=== PATIENT | female | born 1960 | race Caucasian/White ===

== ENCOUNTER 2018-10-10 09:52 | Inpatient (IN) | payer MEDICARE, SELFPAY ==
[2018-10-10] VITALS (31 sets, daily range): BP systolic 99–161; BP diastolic 62–108; PULSE 78–156; RESP 14–26; TEMP 36.9; O2SAT 94–99; BMI 35.9; BMI 33.7; BMI 33.8
[2018-10-10] MEDS: Heparin Injection (Vial) 5,000 UNIT/ML VIAL 4000 UNIT IV (10:02)
[2018-10-10] MEDS: TICAGRELOR 90 MG TABLET 180 MG PO (10:02)
--- NOTE | 2018-10-10 10:02 | EKG12_ITS ---
Test Reason : Blood Pressure : / mmHG Vent. Rate : 092 BPM Atrial Rate : 092 BPM P-R Int : 146 ms QRS Dur : 084 ms QT Int : 334 ms P-R-T Axes : 063 042 086 degrees QTc Int : 413 ms Normal sinus rhythm Nonspecific ST and T wave abnormality Abnormal ECG When compared with ECG of 10-OCT-2018 11:33, MANUAL COMPARISON REQUIRED, DATA IS UNCONFIRMED Confirmed by MALLORIE MYERS, KATINA ([id number]), purchase request editor OMID FLORENCE ([id number]) on 10/14/2018 9:08:34 AM Referred By: Opal Mason Confirmed By:KATINA NOBLES MD
--- NOTE | 2018-10-10 10:02 | RAD_ITS ---
STUDY: X-RAY CHEST REASON FOR EXAM: Female, 58 years old. Chest pain. TECHNIQUE: Single AP portable view of the chest. COMPARISON: Comparison is made with prior study dated November 10, 2016. FINDINGS: EKG electrodes are seen. Hyperinflation. There is no demonstrated pleural abnormality. Normal size heart. Normal mediastinum and oj. Normal visualized pulmonary arteries. Normal visualized aortic arch and descending thoracic aorta. There are degenerative changes of the visualized thoracic spine. Normal visualized ribs, clavicles, and shoulders. There is no demonstrated abnormality of the visualized soft tissue structures of the upper abdomen. RAD/Chest 1 View (Portable) IMPRESSION: Hyperinflation. Electronically Signed: Jay Guzmán, at 14:28 EDT , Service support ,
[2018-10-10] MEDS: 0.9% Normal Saline 1,000 ML 150 ML IV (10:05)
--- NOTE | 2018-10-10 10:08 | ED.DCSUM_ITS ---
- ER Visit Summary Date of Service: 10/10/18 Chief Complaint: Chest pain History of Present Illness: The patient is a 58 F who tells me that over the weekend she had 2 episodes of chest pain. She had another episode today beginning at 030 0 hours. She describes it as left chest aching radiating into her axilla and the back of her shoulder. She notes nausea and had one episode of vomiting at her doctor's office. She also notes shortness of breath. Patient is a non-smoker. Reportedly got an nitroglycerin with improvement in symptoms. EKG at the doctor's office is concerning for anterior elevation Physical Examination: Afebrile noted tachycardia at 107 Gen: Well-nourished well-developed Head: Normocephalic atraumatic Eyes: Perrl EOMI ENT: TMs clear no rhinorrhea moist mucous membranes Neck: Supple no lymphadenopathy no JVD nontender CVS: Regular rate rhythm no murmurs normal S1-S2 Respiratory: No distress clear to auscultation bilaterally chest nontender Abdomen: Soft nontender nondistended normal bowel sounds no masses Back: Nontender Extremity: Nontender no edema Skin: Normal color no rash Neuro: alert orientated ?3 CN II-XII intact normal strength sensation reflexes gait cerebellar Psych: Anxious Test Results: EKG demonstrates a sinus tachycardia with anterior elevation Emergency Department Course and Treatment: A STEMI team was called and the patient received heparin, Brilinta, and metoprolol. Dr. 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 She will be transferred to [facility] Impression: 1. Acute anterior myocardial infarction This note was generated with [employer] dictation software. It may contain incorrect words, spelling, and punctuation that were not noted in review of the chart prior to signing ED Disposition - Plan for ED Patient: Referrals: Anup Quinones MD [Primary Care Provider] -
--- NOTE | 2018-10-10 10:09 | ED.RN ---
Chinedu notified of patient condition. on his way in.
[2018-10-10 10:18] LABS: Absolute Lymphocyte Count 1.59 X10^3/ul (0.83-4.51); Absolute Neutrophil Count 6.9 X10^3/uL (2.0-7.7); Basophil# 0.02 X10^3/uL; Basophil% 0.2 % (0-1); Eosinophil# 0.07 X10^3/uL; Eosinophils% 0.8 % (0-5); Hematocrit 45.5 % (37-47); Hemoglobin 15.3 g/dl (12.0-15.0); Lymphocyte # 1.59 X10^3/ul (4.0); Lymphocyte % 17.4 % (19-41); Mean Corp Hgb Conc 33.6 g/gl (32-36); Mean Corpuscular Hgb 28.1 pg (27.0-32.0); Mean Corpuscular Volume 83.5 fL (81-99); Mean Platelet Vol. 10.7 fl (6.2-12.0); Monocyte# 0.52 X10^3/uL; Monocyte% 5.7 % (0-10); Neutrophil # 6.92 X10^3/uL (2.7-7.7); Neutrophil % 75.8 % (47-70); POSITIVE COUNT NO; POSITIVE DIFFERENTIAL NO; POSITIVE MORPHOLOGY NO; Platelet Count 264 K/mm3 (150-450); RBC Distribution Width CV 13.2 % (11.6-14.6); RBC Distribution Width SD 39.7 fl (35.1-43.9); Red Blood Count 5.45 M/mm3 (4.2-5.4); White Blood Count 9.1 K/mm3 (4.4-11.0)
[2018-10-10 10:24] LABS: Prothrombin Time (Protime)PT. 13.4 SECONDS (11.7-14.9)
[2018-10-10 10:25] LABS: Partial Thromboplast Time 29.3 Seconds (24.1-36.2)
[2018-10-10 10:44] LABS: Anion Gap 14 (5-15); BUN 21 mg/dL (7-18); BUN/Creat Ratio 18.8 RATIO (10-20); Calcium,Total 9.3 mg/dL (8.5-10.1); Chloride 96 mmol/L (98-107); Creatinine, Serum 1.12 mg/dL (0.55-1.02); EST Glomerular Filtration Rate 53 mL/min (>60); Est Glom Filt Rate - Afr Amer 64 mL/min (>60); Estimated Creatinine Clearance 68.99 ml/min; Glucose 516 mg/dL (74-106); Potassium 4.7 mmol/L (3.5-5.1); Sodium Level 131 mmol/L (136-145)
--- NOTE | 2018-10-10 11:11 | CL.I_ITS ---
Patient Name: ANGEL ALMODOVAR Study Date: 10/10/2018 Performing: Js Conti MD Ht: 59.05 inches 150 cm : 1960 Wt: 178.57 lbs 81 kg Age: 58 Gender: female BSA: 1.76 PROCEDURE(S) PERFORMED CM15-CPI/COR/LV WO95-HWD, LIZETTE AND/OR PTCA, ARTERY OR GRAFT, SINGLE VESSEL CLINICAL PROFILE AND CO-MORBIDITIES Heart Failure: None Angina Classification Anginal Classification w/in 2 Weeks: CCS IV CAD Presentations: STEMI. Symptom onset Date/Time: 10/10/2018 03:00:00 Time Estimated CONCLUSIONS 99% Mid LAD with MEHREEN I flow 70% distal LCX 60% Mid RCA LVEF 35% RECOMMENDATIONS ASA Indefinitley Brilinta for at least 12 months DESCRIPTION OF PROCEDURE The patient arrived to the procedure lab. The risks and benefits of the procedure as well as a full d escription of our services here and lack of surgical backup were fully explained to the patient and/o r their significant other prior to the catheterization. The Timeout was completed, verifying the kolby ect patient and procedure. The patient's procedural site was prepped and draped in the usual fashion. Local anesthetic was given subcutaneously to right groin region with Lidocaine 2%. Using a modified Seldinger technique, arterial access was obtained via the right radial artery, a 6Fr sheath was inser lasha.. Left Coronary Artery selective angiography was performed in multiple views using a 6 Fr. XB 2. 5 VBT. Right Coronary Artery selective angiography was then performed in multiple views using a 5 Fr. JR 4 catheter. Left Ventriculography was performed in OCAMPO projection using a 5 Fr. Pigtail catheterT he images were reviewed and options discussed. A decision was then made to proceed with an Intervention, IVUS or other adjunct procedure. Runthrough Guide wire was advanced to the LAD. Emerge 2.0 x 12 Balloon catheter was inserted. Bal loon catheter was advanced across lesion in the LAD, mid. PTCA balloon inflated at 6 atms for 10 secs . Angiogram performed post balloon dilatation. PTCA balloon inflated at 8 atms for 14 secs. Angiogram performed post balloon dilatation. Synergy 2.5 x 38 Drug Eluting stent was inserted. Drug Eluting st ent was advanced across the lesion in the LAD, mid. Angiogram performed pre stent deployment. Angiogr am performed post stent deployment. Synergy 2.5 x 12 Drug Eluting stent was inserted. Drug Eluting st ent was advanced across the lesion in the LAD, mid. Angiogram performed pre stent deployment. NC Bambi ge 2.5 x 30 Balloon catheter was inserted. Balloon catheter was advanced across lesion in the LAD, mi d. The arterial sheath was pulled and a TR Band was applied for hemostasis CORONARY ANGIOGRAPHY DOMINANCE: Right Dominant LEFT HEART ASSESSMENT Left Ventricular Ejection Fraction: by LV Gram 35 % LVEDP: 5 mmHg LEFT MAIN: Angiographically normal LEFT ANTERIOR DECENDING ARTERY: 99% Mid LAD with TMI I flow CIRCUMFLEX ARTERY: Distal 70% RIGHT CORONARY ARTERY: 50% Prox, 60% distal Mid INTERVENTION INFORMATION LESION SITE: LAD (Mid) Lesion Complexity: High/C, thrombus present: Yes, culprit lesion: Yes Pre Stenosis: 99 % Pre intervention MEHREEN flow: 3 PROCEDURE: Drug Eluting Stent with pre and post dilatation Post Stenosis: 0 % Post intervention MEHREEN flow: 3 Lesion Devices: Luis Miguel Sci EMERGE MR 2.00x12 BALLOON Luis Miguel Sci Synergy MR LIZETTE 2.50x38 Luis Miguel Sci Synergy MR LIZETTE 2.50x12 Luis Miguel Sci NC EMERGE MR 2.50x30 BALLOON Terumo .014 Runthrough Extra Floppy 180cm straight COMPLICATIONS No Complications PROCEDURE MEDICATIONS Versed 1 mg IV Versed 1 mg IV Oxygen: 2 L/min via nasal cannula Heparin 4000 unit(s) IV 10/10/2018 10:26:55 Nitro 200 mcg IC 10/10/2018 10:31:16 Nitro 200 mcg IC 10/10/2018 10:31:16 Verapamil 2.5mg, Ntg 100mcgs, given IA 10/10/2018 10:24:37 IV Bolus: .9 NaCl 250 ml total 10/10/2018 11:03:33 SUMMARY OF HEMODYNAMIC DATA Time AIR REST ECG 10:15:31 AO 118/68 (92) SA 10:22:53 LV 118/-1, 6 10:55:03 LV 124/-2, 3 10:55:10 LVp 106/3, 8 10:57:07 AOp 101/60 (79) 10:57:12 Signed By Js Conti MD On 10/10/2018 11:10:25 AM Js Conti MD
--- NOTE | 2018-10-10 11:16 | EKG12_ITS ---
Test Reason : CP Blood Pressure : / mmHG Vent. Rate : 094 BPM Atrial Rate : 094 BPM P-R Int : 136 ms QRS Dur : 082 ms QT Int : 334 ms P-R-T Axes : 069 053 078 degrees QTc Int : 417 ms Normal sinus rhythm Nonspecific T wave abnormality Abnormal ECG When compared with ECG of 10-OCT-2018 14:03, MANUAL COMPARISON REQUIRED, DATA IS UNCONFIRMED Confirmed by MALLORIE MYERS, KATINA ([id number]), film editor OMID FLORENCE ([id number]) on 10/14/2018 9:08:21 AM Referred By: Opal Mason Confirmed By:KATINA NOBLES MD
--- NOTE | 2018-10-10 11:25 | CON.PCM_ITS ---
Reason for Consult Date of Consultation: 10/10/18 History of Present Illness: The patient is a 58 year old F with past medical history significant for hypertension. According to her, she has been having intermittent chest discomfort for the last couple of days. However it became really worse at 3:00 this morning and has since been constant. She presented to the emergency room where and she was diagnosed with acute anterior ST elevation myocardial infarction. Next Patient describes her pain as pressure across her anterior chest. Positive associated shortness of breath. Positive nausea but no vomiting. [] Past Medical History Allergies/Adverse Reactions: Allergies calcium carbonate [From Florical] Allergy (Verified 10/10/18 09:53) Swelling codeine Allergy (Verified 10/10/18 09:53) Swelling egg Allergy (Verified 10/10/18 09:53) Unknown fish derived Allergy (Verified 10/10/18 09:53) Unknown nitrofurantoin macrocrystalline [From Macrodantin] Allergy (Verified 10/10/18 09:53) Swelling oxycodone HCl [From Percocet] Allergy (Verified 10/10/18 09:53) Hives propoxyphene napsylate [From Darvocet-N 100] Allergy (Verified 10/10/18 09:53) Hives sodium fluoride [From Florical] Allergy (Verified 10/10/18 09:53) Swelling Sulfa (Sulfonamide Antibiotics) Allergy (Verified 10/10/18 09:53) Unknown Home Medications: Ambulatory Orders Medication Instructions Recorded Aspirin [Aspirin, Baby] 81 mg PO DAILY 06/02/13 Albuterol Inhaler [Ventolin Hfa 2 puff INHALATION Q6H PRN PRN 11/10/16 (SP)] Citalopram Hydrobromide [Celexa] 20 mg PO DAILY 11/10/16 Fluticasone/Salmeterol [Advair 1 puff INHALATION BID 11/10/16 250/50 Mcg Diskus] Insulin NPH Human Isophane 22 unit SQ BID 11/10/16 [Humulin N] Insulin Regular, Human [Humulin R] 14 unit SC TID 11/10/16 Polyethylene Glycol 3350 [Miralax] 17 gm PO DAILY 11/10/16 Rosuvastatin Calcium [Crestor] 10 mg PO QHS 11/10/16 Trazodone HCl 200 mg PO QHS 11/10/16 Past Medical History (Chronic Problems): Chronic Problems Myalgia and myositis (Chronic) HTN (hypertension) (Chronic) HLD (hyperlipidemia) (Chronic) Family history of ischemic heart disease (Chronic) Diabetes mellitus type II, uncontrolled (Chronic) Depressive disorder (Chronic) Coronary atherosclerosis of [place] coronary vessel (Chronic) Chest pain (Chronic) Asthma (Chronic) Smoking Status: Never smoker Review of Systems - Review of Systems General: Denies: Fever, Chills Cardiovascular: Reports: Chest Discomfort at Rest, Chest Pressure, Chest Tightness, Chest Heaviness, Shortness of Breath at Rest. Denies: Orthopnea, PND, Peripheral Edema Gastrointestinal: Reports: Nausea. Denies: Abdominal Discomfort, Jaundice, Emesis, Hematemesis, Melena Neurological: Denies: History of TIA, History of CVA Hematologic/ Lymphatic: Denies: Easy Brusing, Easy Bleeding Subjectve: Appeared anxious and in acute distress. Objective: Vital Signs Temp Pulse Resp BP Pulse Ox 98.5 F 156 H 17 161/99 H 95 10/10/18 09:53 10/10/18 09:53 10/10/18 09:59 10/10/18 09:59 10/10/18 09:57 Oxygen Delivery Method Room Air Weight: 80.8 kg Body Mass Index (BMI) 35.9 Finger Stick Blood Glucose 115 General: Awake, Alert, Oriented x 3, In Acute Distress HEENT: Atraumatic, Normocephalic Oral: Moist Mucosa Neck: Supple Lungs: Clear to auscultation Cardiovascular: Regular Rhythm, Normal S1, Normal S2, Positive S3 Abdomen: Bowel Sounds Present, Soft Extremities: No edema Neurological: No Focal Motor or Sensory Deficit Psych/Mental Status: Appropriate 10/10/18 10:02: WBC 9.1, RBC 5.45 H, Hgb 15.3 H, Hct 45.5, MCV 83.5, MCH 28.1, MCHC 33.6, RDW 13.2, RDW Differential 39.7, Plt Count 264, MPV 10.7, Immature Gran % (Auto) 0.100, Neut % (Auto) 75.8 H, Lymph % (Auto) 17.4 L, [place] % (Auto) 5.7, Eos % (Auto) 0.8, Baso % (Auto) 0.2, Absolute Neuts (auto) 6.9, Total Counted Not Reportable 10/10/18 10:02: PT 13.4, INR 1.0, APTT 29.3 10/10/18 10:02: Sodium 131 L, Potassium 4.7, Chloride 96 L, Carbon Dioxide 21.0, Anion Gap 14, BUN 21 H, Creatinine 1.12 H, Est GFR (MDRD) Af Amer 64, Est GFR (MDRD) Non-Af 53 L, BUN/Creatinine Ratio 18.8, Glucose 516 H*, Calcium 9.3, Troponin I 6.110 H* Rhythm: Sinus tachycardia EKG: EKG showed ST elevations consistent with acute anterior ST elevation myocardial infarction. Sinus tachycardia ECHO: Stress Test: Cardiac Cath: PCI: CT Surgery: Holter monitor: EPS: PPM: CXR: Chest CT Scan: Assessment/Plan 1. Acute anterior myocardial infarction. Emergent coronary angiography and possible revascularization was recommended. After obtaining informed consent, procedure was undertaken. Coronary angiography revealed subtotal occlusion in the mid left anterior descending artery with MEHREEN I flow. Successful percutaneous revascularization was performed with 2 drug-eluting stents. Excellent results were noted with mu-ism of MEHREEN-3 flow. 2. Continue aspirin lifelong. Brilinta for at least one year. Start low-dose beta-blockers. Start PURNIMA inhibitors. Statins. 3. LV systolic dysfunction secondary to #1 above. LVEF of approximately 35% with anterior apical hypokinesis. Start on beta-blockers, PURNIMA inhibitors and Aldactone. 2D echocardiogram 4. Patient has residual lesions in RCA and left circumflex. Follow-up as outpatient for staged intervention versus continued medical management 5. Diabetes mellitus. 6. Dyslipidemia
[2018-10-10] MEDS: 0.9% Normal Saline 1,000 ML 75 ML IV (11:42)
[2018-10-10 12:15] LABS: ACT Activated Clotting Time 202 sec (74-137)
[2018-10-10 12:15] LABS: ACT Activated Clotting Time 235 sec (74-137)
--- NOTE | 2018-10-10 13:14 | CRPHASE1 ---
Patient Data/Charges Hebrew Teacher:: Js Conti Refer Phase II:: Yes Phase II Referral:: [facility] Risk Factors/Lifestyle Hx Diabetes Mellitus Type 2: Yes Hx Dyslipidemia: Yes Hx Obesity: Yes Height: 1.5 m Weight:: 80.796 kg BMI: 35.9 Issues Affecting Care:: None Knowledge of Condition:: Yes Medical/Surgical History CAD:: Yes Asthma:: Yes Diabetes Type II:: Yes Hypertension:: Yes Dyslipidemia:: Yes
[2018-10-10 13:15] LABS: Bedside Glucose 346 mg/dL (70-110)
--- NOTE | 2018-10-10 13:17 | CRPHASE1_ITS ---
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 Risk Factors/Lifestyle Hx Diabetes Mellitus Type 2: Yes Hx Dyslipidemia: Yes Hx Obesity: Yes Height: 1.5 m Weight:: 80.796 kg BMI: 35.9 Issues Affecting Care:: None Knowledge of Condition:: Yes Medical/Surgical History CAD:: Yes Asthma:: Yes Diabetes Type II:: Yes Hypertension:: Yes Dyslipidemia:: Yes
--- NOTE | 2018-10-10 13:18 | CRPH1.INSTRU ---
General Education CAD and cardiac anatomy and function:: Patient communicates acknowledgment Explanation of diagnoses and procedures:: Patient communicates acknowledgment Sign/Symptoms of VA:: Patient communicates acknowledgment Antiplatelet therapy: Patient communicates acknowledgment Proper use of NTG-SL: Not instructed Emergency procedures and activation of EMS: Patient communicates acknowledgment Compliance of all prescribed medications: Patient communicates acknowledgment Smoking Patient Nicotine/Smoking Risk Factors Are:: Non-smoker Nicotine/Smoking Response Code:: Patient communicates acknowledgment Dyslipidemia Dyslipidemia Response Code:: Patient communicates acknowledgment Overweight/Obesity Patient Overweight/Obesity Risk Factors Are:: Obesity - > or = 30 Recommendations Include:: Weight loss of 5-10%, Reduced calorie diet, Exercise 5-7 times/week Overweight/Obesity:: Patient communicates acknowledgment Hypertension Recommendations Include:: Maintain BP <130/85, BP <130/80 if diabetic, DASH dietary guidelines, Decrease/maintain normal body weight, Moderation of ETOH Hypertension:: Patient communicates acknowledgment Heart Disease Patient Heart Disease Risk Factors Are:: Family history of heart disease < 65 years old Heart Disease Response Code:: Patient communicates acknowledgment Diabetes Recommendations Include:: Maintain fasting blood sugars 70-110 md/dL, Maintain HgbA1c of 6% or less, Monitor blood sugar as prescribed, Diabetic dietary guidelines, Decrease/maintain body weight Diabetes:: Patient communicates acknowledgment Metabolic Syndrome Metabolic Syndrome Response Code:: Patient communicates acknowledgment Sedentary Sedentary Response Code:: Patient communicates acknowledgment Stress Stress Response Code:: Patient communicates acknowledgment
[2018-10-10] MEDS: Carvedilol 3.125 MG TABLET PO ×2 (14:35→21:12)
[2018-10-10 16:26] LABS: Bedside Glucose 276 mg/dL (70-110)
[2018-10-10] MEDS: Lisinopril 2.5 MG Tablet PO (16:55)
[2018-10-10] MEDS: Insulin NPH Human 100 UNITS/ML PEN 22 UNITS SC (17:42)
--- NOTE | 2018-10-10 19:14 | PCM.HP.STD ---
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 Comment: started about 6 months ago (6) Hyponatremia Status: Acute (7) Chronic renal failure, stage 3 (moderate) Status: Chronic (8) Asthma Status: Chronic (9) Coronary atherosclerosis of [place] coronary vessel Status: Chronic (10) Depressive disorder Status: Chronic (11) Diabetes mellitus type II, uncontrolled Status: Chronic (12) Family history of ischemic heart disease Status: Chronic (13) HLD (hyperlipidemia) Status: Chronic (14) HTN (hypertension) Status: Chronic (15) S/P PTCA (percutaneous transluminal coronary angioplasty) Status: Acute Comment: LIZETTE X 2 to the LAD on 10/10/18 (16) Abnormal mammogram Status: Acute Comment: has an appt for later this month for a biopsy History of Present Illness Date of Admission: 10/10/18 Chief Complaint: chest pain The patient is a 58 year old F with a past medical history of diabetes mellitus type 2, hyperlipidemia, asthma, depression, learning disabilities, morbid obesity and CAD who presented to the ED at [facility] on 10/10/2018 complaining of chest pain that started on 10/07/2018. The chest pain got much worse at 3 AM on 10/10/2018. The chest pain was reported as left chest pain and it radiated down the left arm and into the left shoulder. She had nausea and one episode of emesis at her doctor's office. The chest pain was associated with shortness of breath. EKG done at her physician's office showed ST segment elevation. Repeat EKG done in the emergency room showed sinus tachycardia with anterior ST segment elevation in the precordial leads. Code STEMI was called and the patient was taken to the [facility]. She received heparin, Brilinta and metoprolol in the emergency department. Cardiac catheterization showed a 99% occlusion of the mid LAD, 70% occlusion of the distal left circumflex and a 60% occlusion of the right RCA. Left ventriculogram showed a 35% ejection fraction. 2 drug-eluting stents were inserted into the LAD and the patient was transferred to the intensive care unit. All lab was personally reviewed. Hemoglobin is 15.3 and the platelets and white blood cell count were within normal limits. Sodium was low at 131 and the BUN was 21 with a creatinine of 1.12 with a estimated GFR of 53. Random glucose was 516 and the troponin at admission was 6.11. She recently found out that her MMG was abnormal and she has been scheduled for a bx later this month. There is a + FH of breast CA in her mother and sister. 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 a social worker health services and is on new medication for rheumatoid arthritis Memory loss of unknown cause (Chronic) started about 6 months ago Chronic renal failure, stage 3 (moderate) (Chronic) HTN (hypertension) (Chronic) HLD (hyperlipidemia) (Chronic) Family history of ischemic heart disease (Chronic) Diabetes mellitus type II, uncontrolled (Chronic) Depressive disorder (Chronic) Coronary atherosclerosis of [place] coronary vessel (Chronic) Asthma (Chronic) Allergies calcium carbonate [From Florical] Allergy (Verified 10/10/18 09:53) Swelling codeine Allergy (Verified 10/10/18 09:53) Swelling egg Allergy (Verified 10/10/18 09:53) Unknown fish derived Allergy (Verified 10/10/18 09:53) Unknown nitrofurantoin macrocrystalline [From Macrodantin] Allergy (Verified 10/10/18 09:53) Swelling oxycodone HCl [From Percocet] Allergy (Verified 10/10/18 09:53) Hives propoxyphene napsylate [From Darvocet-N 100] Allergy (Verified 10/10/18 09:53) Hives sodium fluoride [From Florical] Allergy (Verified 10/10/18 09:53) Swelling Sulfa (Sulfonamide Antibiotics) Allergy (Verified 10/10/18 09:53) Unknown Home Medications: Ambulatory Orders Medication Instructions Recorded Aspirin [Aspirin, Baby] 81 mg PO DAILY 06/02/13 Albuterol Inhaler [Ventolin Hfa 2 puff INHALATION Q6H PRN PRN 11/10/16 (SP)] Citalopram Hydrobromide [Celexa] 20 mg PO DAILY 11/10/16 Fluticasone/Salmeterol [Advair 1 puff INHALATION BID 11/10/16 250/50 Mcg Diskus] Insulin NPH Human Isophane 22 unit SQ BID 11/10/16 [Humulin N] Insulin Regular, Human [Humulin R] 14 unit SC TID 11/10/16 Polyethylene Glycol 3350 [Miralax] 17 gm PO DAILY 11/10/16 Rosuvastatin Calcium [Crestor] 10 mg PO QHS 11/10/16 Trazodone HCl 200 mg PO QHS 11/10/16 Surgical History: cholecystectomy, hysterectomy - CRIS/BSO for endometriosis and bleeding, - - ear surgery and eye surgery 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 Lives: Spouse/ Significant Other Smoking Status: Never smoker Tobacco Use: Non-smoker Alcohol: None Drugs: None - *Family History Maternal History Items: Cancer - Mother had breast cancer., Diabetes, Heart Disease Paternal History Items: Diabetes, Heart Disease Sibling History Items: Cancer - Breast cancer in her sister, Heart Disease Review of Systems Constitutional: Denies: Anorexia, Chills, Fever, Weakness, Weight Change Eyes: Denies: Blurred vision HEENT: Denies: Difficulty Hearing, Difficulty Swallowing, Eye Pain, Head Aches, Sinus Congestion, Sinus Drainage, Sore Throat Cardiovascular: Reports: Chest Pain. Denies: Edema, Heaviness, Light Headedness, Orthopnea, Palpitations, Paroxysmal Noc. Dyspnea, Syncope Respiratory: Reports: Shortness of Breath - with the chest pain and it has resolved since the cath and 2 stents to the LAD. Denies: Cough, Shortness of breath at rest, Sputum production Gastrointestinal: Reports: Nausea - with the chest pain only, Vomiting. Denies: Abdominal Pain, Diarrhea Genitourinary: Denies: Dysuria, Incontinence Gynecological: Reports: - - recent abnormal MMG. Denies: Vaginal discharge Musculoskeletal: Reports: Arm Pain - left arm in association with CP. Denies: Joint Pain, Joint Tenderness Skin: Denies: Jaundice, Rash, Wounds Neurological: Reports: - - having trouble with her memory for the past 6 months per her . Denies: Slurred speech, Focal weakness, Numbness, Tingling, Seizures Psychiatric: Reports: Anxiety, Depression. Denies: Homicidal Ideations, Suicidal Ideations Endocrine: Denies: Hx of Thyroiditis Hematologic/ Lymphatic: Denies: Easy Bruising, Easy Bleeding, Hx of blood clot VTE Information - Inpt Only VTE Present on Admission: No VTE Mechan Device Prophylaxis: SCD's, Knee High COURTNEY Hose VTE Pharm Prophylaxis ordered?: No Reason prophylaxis not ordered:: Medical Contraindication - she received heparin bolus prior to cath Patient Problems: Active and Suspected Problems STEMI (ST elevation myocardial infarction) (Acute) Hyponatremia (Acute) S/P PTCA (percutaneous transluminal coronary angioplasty) (Acute) LIZETTE X 2 to the LAD on 10/10/18 Abnormal mammogram (Acute) has an appt for later this month for a biopsy - Physical Exam General: Alert, Cooperative, Well developed, Well nourished, Confused - keeps looking at her to help her answer my questions HEENT: Atraumatic, PERRLA, EOMI, Normocephalic Oral: Moist Mucosa, No Gingival or Mucosal Lesions/ Ulcerations Neck: Supple, No JVD, Negative Carotid Bruits, No Nodes, Trachea Midline Lungs: Clear to auscultation, Normal air movement, No rhonchi, No wheeze, No rales Cardiovascular: Regular rate, Regular Rhythm, Normal S1, Normal S2, No murmurs, No rub noted, No Gallop Abdomen: Bowel Sounds Present, Soft, Non Tender, Non-Distended Extremities: No clubbing, No cyanosis, No edema, No Calf Tenderness, Peripheral Pulses Normal Skin: No rashes, No breakdown Musculoskeletal: No Muscle Wasting Neurological: Cranial nerves II-XII grossly intact, Neuro grossly intact Psych/Mental Status: Anxious Vital Signs Temp Pulse Resp BP Pulse Ox 98.4 F 98 26 H 133/108 H 98 10/10/18 11:30 10/10/18 18:00 10/10/18 18:00 10/10/18 18:00 10/10/18 18:00 Oxygen Delivery Method Room Air Weight: 178 lb 2 oz Body Mass Index (BMI) 33.7 Finger Stick Blood Glucose 115 Intake and Output for Last 24 Hours 10/08/18 10/09/18 10/10/18 22:59 23:59 23:59 Intake Total 2500 / 2500 Output Total 2049 / 2049 Balance 450 / 450 Laboratory Tests Past 24 Hrs 10/10/18 10/10/18 10/10/18 10:02 10:02 10:02 WBC 9.1 RBC 5.45 H Hgb 15.3 H Hct 45.5 MCV 83.5 MCH 28.1 MCHC 33.6 RDW 13.2 RDW Differential 39.7 Plt Count 264 MPV 10.7 Immature Gran % (Auto) 0.100 Neut % (Auto) 75.8 H Lymph % (Auto) 17.4 L [place] % (Auto) 5.7 Eos % (Auto) 0.8 Baso % (Auto) 0.2 Absolute Neuts (auto) 6.9 Absolute Lymphs (auto) 1.59 Total Counted Not Reportable PT 13.4 INR 1.0 APTT 29.3 Activated Clotting Time Sodium 131 L Potassium 4.7 Chloride 96 L Carbon Dioxide 21.0 Anion Gap 14 BUN 21 H Creatinine 1.12 H Estim Creat Clear Calc 68.99 Est GFR (MDRD) Af Amer 64 Est GFR (MDRD) Non-Af 53 L BUN/Creatinine Ratio 18.8 Glucose 516 H* Calcium 9.3 Troponin I 6.110 H* 10/10/18 10/10/18 10:23 10:51 WBC RBC Hgb Hct MCV MCH MCHC RDW RDW Differential Plt Count MPV Immature Gran % (Auto) Neut % (Auto) Lymph % (Auto) [place] % (Auto) Eos % (Auto) Baso % (Auto) Absolute Neuts (auto) Absolute Lymphs (auto) Total Counted PT INR APTT Activated Clotting Time 202 H 235 H Sodium Potassium Chloride Carbon Dioxide Anion Gap BUN Creatinine Estim Creat Clear Calc Est GFR (MDRD) Af Amer Est GFR (MDRD) Non-Af BUN/Creatinine Ratio Glucose Calcium Troponin I POC Glucose 10/10/18 10/10/18 16:23 13:11 POC Glucose 276 H 346 H Assessment/Plan All Active Problems STEMI (ST elevation myocardial infarction) (Acute) Hyponatremia (Acute) S/P PTCA (percutaneous transluminal coronary angioplasty) (Acute) Abnormal mammogram (Acute) Impressions 1. STEMI secondary to 99% occlusion of the mid LAD 2. Status post PTCA with 2 stents placed in the LAD 3. Coronary artery disease involving [place] coronary arteries including the LCx, LAD and RCA 4. Ischemic cardiomyopathy with a 35% ejection fraction on cath 5. Diabetes mellitus type 2 6. Hyperlipidemia 7. History of asthma 8. Reported rheumatoid arthritis-on no medications 9. Reported fibromyalgia 10. Recent abnormal mammogram-scheduled for breast biopsy later this month 11. Hyponatremia 12. Stage III chronic renal failure 13. increasing memory difficulty for 6 months Admitted to the intensive care unit post cath/drug-eluting stents Brilinta and aspirin-Will need to antiplatelet agents for at least one year Carvedilol 3.125 mg p.o. twice daily Pravastatin 40 mg nightly Spironolactone 12.5 mg daily Lisinopril 2.5 mg daily 1800-calorie diet with Accu-Cheks 4 times daily and resume her home insulin schedule Echocardiogram in the a.m. Lipid panel, liver panel, magnesium, phosphorus, BMP in the AM. TSH, PANCHO, B12 ammonia in the AM and a CT brain in the future Cardiac rehab consultation Will discuss with Dr. Conti whether she can proceed with the scheduled breast bx at the end of the month or if she should wait 6 weeks Code Visit Inpatient E&M: [id number] [facility] L3
--- NOTE | 2018-10-10 19:19 | HP.PCM_ITS ---
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 Comment: started about 6 months ago (6) Hyponatremia Status: Acute (7) Chronic renal failure, stage 3 (moderate) Status: Chronic (8) Asthma Status: Chronic (9) Coronary atherosclerosis of [place] coronary vessel Status: Chronic (10) Depressive disorder Status: Chronic (11) Diabetes mellitus type II, uncontrolled Status: Chronic (12) Family history of ischemic heart disease Status: Chronic (13) HLD (hyperlipidemia) Status: Chronic (14) HTN (hypertension) Status: Chronic (15) S/P PTCA (percutaneous transluminal coronary angioplasty) Status: Acute Comment: LIZETTE X 2 to the LAD on 10/10/18 (16) Abnormal mammogram Status: Acute Comment: has an appt for later this month for a biopsy History of Present Illness Date of Admission: 10/10/18 Chief Complaint: chest pain The patient is a 58 year old F with a past medical history of diabetes mellitus type 2, hyperlipidemia, asthma, depression, learning disabilities, morbid obesity and CAD who presented to the ED at [facility] on 10/10/2018 complaining of chest pain that started on 10/07/2018. The chest pain got much worse at 3 AM on 10/10/2018. The chest pain was reported as left chest pain and it radiated down the left arm and into the left shoulder. She had nausea and one episode of emesis at her doctor's office. The chest pain was associated with shortness of breath. EKG done at her physician's office showed ST segment elevation. Repeat EKG done in the emergency room showed sinus tachycardia with anterior ST segment elevation in the precordial leads. Code STEMI was called and the patient was taken to the [facility]. She received heparin, Brilinta and metoprolol in the emergency department. Cardiac catheterization showed a 99% occlusion of the mid LAD, 70% occlusion of the distal left circumflex and a 60% occlusion of the right RCA. Left ventriculogram showed a 35% ejection fraction. 2 drug-eluting stents were inserted into the LAD and the patient was transferred to the intensive care unit. All lab was personally reviewed. Hemoglobin is 15.3 and the platelets and white blood cell count were within normal limits. Sodium was low at 131 and the BUN was 21 with a creatinine of 1.12 with a estimated GFR of 53. Random glucose was 516 and the troponin at admission was 6.11. She recently found out that her MMG was abnormal and she has been scheduled for a bx later this month. There is a + FH of breast CA in her mother and sister. 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 operator and is on new medication for rheumatoid arthritis Memory loss of unknown cause (Chronic) started about 6 months ago Chronic renal failure, stage 3 (moderate) (Chronic) HTN (hypertension) (Chronic) HLD (hyperlipidemia) (Chronic) Family history of ischemic heart disease (Chronic) Diabetes mellitus type II, uncontrolled (Chronic) Depressive disorder (Chronic) Coronary atherosclerosis of [place] coronary vessel (Chronic) Asthma (Chronic) Allergies calcium carbonate [From Florical] Allergy (Verified 10/10/18 09:53) Swelling codeine Allergy (Verified 10/10/18 09:53) Swelling egg Allergy (Verified 10/10/18 09:53) Unknown fish derived Allergy (Verified 10/10/18 09:53) Unknown nitrofurantoin macrocrystalline [From Macrodantin] Allergy (Verified 10/10/18 09:53) Swelling oxycodone HCl [From Percocet] Allergy (Verified 10/10/18 09:53) Hives propoxyphene napsylate [From Darvocet-N 100] Allergy (Verified 10/10/18 09:53) Hives sodium fluoride [From Florical] Allergy (Verified 10/10/18 09:53) Swelling Sulfa (Sulfonamide Antibiotics) Allergy (Verified 10/10/18 09:53) Unknown Home Medications: Ambulatory Orders Medication Instructions Recorded Aspirin [Aspirin, Baby] 81 mg PO DAILY 06/02/13 Albuterol Inhaler [Ventolin Hfa 2 puff INHALATION Q6H PRN PRN 11/10/16 (SP)] Citalopram Hydrobromide [Celexa] 20 mg PO DAILY 11/10/16 Fluticasone/Salmeterol [Advair 1 puff INHALATION BID 11/10/16 250/50 Mcg Diskus] Insulin NPH Human Isophane 22 unit SQ BID 11/10/16 [Humulin N] Insulin Regular, Human [Humulin R] 14 unit SC TID 11/10/16 Polyethylene Glycol 3350 [Miralax] 17 gm PO DAILY 11/10/16 Rosuvastatin Calcium [Crestor] 10 mg PO QHS 11/10/16 Trazodone HCl 200 mg PO QHS 11/10/16 Surgical History: cholecystectomy, hysterectomy - CRIS/BSO for endometriosis and bleeding, - - ear surgery and eye surgery 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 Lives: Spouse/ Significant Other Smoking Status: Never smoker Tobacco Use: Non-smoker Alcohol: None Drugs: None - *Family History Maternal History Items: Cancer - Mother had breast cancer., Diabetes, Heart Disease Paternal History Items: Diabetes, Heart Disease Sibling History Items: Cancer - Breast cancer in her sister, Heart Disease Review of Systems Constitutional: Denies: Anorexia, Chills, Fever, Weakness, Weight Change Eyes: Denies: Blurred vision HEENT: Denies: Difficulty Hearing, Difficulty Swallowing, Eye Pain, Head Aches, Sinus Congestion, Sinus Drainage, Sore Throat Cardiovascular: Reports: Chest Pain. Denies: Edema, Heaviness, Light Headedness, Orthopnea, Palpitations, Paroxysmal Noc. Dyspnea, Syncope Respiratory: Reports: Shortness of Breath - with the chest pain and it has resolved since the cath and 2 stents to the LAD. Denies: Cough, Shortness of breath at rest, Sputum production Gastrointestinal: Reports: Nausea - with the chest pain only, Vomiting. Denies: Abdominal Pain, Diarrhea Genitourinary: Denies: Dysuria, Incontinence Gynecological: Reports: - - recent abnormal MMG. Denies: Vaginal discharge Musculoskeletal: Reports: Arm Pain - left arm in association with CP. Denies: Joint Pain, Joint Tenderness Skin: Denies: Jaundice, Rash, Wounds Neurological: Reports: - - having trouble with her memory for the past 6 months per her . Denies: Slurred speech, Focal weakness, Numbness, Tingling, Seizures Psychiatric: Reports: Anxiety, Depression. Denies: Homicidal Ideations, Suicidal Ideations Endocrine: Denies: Hx of Thyroiditis Hematologic/ Lymphatic: Denies: Easy Bruising, Easy Bleeding, Hx of blood clot VTE Information - Inpt Only VTE Present on Admission: No VTE Mechan Device Prophylaxis: SCD's, Knee High COURTNEY Hose VTE Pharm Prophylaxis ordered?: No Reason prophylaxis not ordered:: Medical Contraindication - she received heparin bolus prior to cath Patient Problems: Active and Suspected Problems STEMI (ST elevation myocardial infarction) (Acute) Hyponatremia (Acute) S/P PTCA (percutaneous transluminal coronary angioplasty) (Acute) LIZETTE X 2 to the LAD on 10/10/18 Abnormal mammogram (Acute) has an appt for later this month for a biopsy - Physical Exam General: Alert, Cooperative, Well developed, Well nourished, Confused - keeps looking at her to help her answer my questions HEENT: Atraumatic, PERRLA, EOMI, Normocephalic Oral: Moist Mucosa, No Gingival or Mucosal Lesions/ Ulcerations Neck: Supple, No JVD, Negative Carotid Bruits, No Nodes, Trachea Midline Lungs: Clear to auscultation, Normal air movement, No rhonchi, No wheeze, No rales Cardiovascular: Regular rate, Regular Rhythm, Normal S1, Normal S2, No murmurs, No rub noted, No Gallop Abdomen: Bowel Sounds Present, Soft, Non Tender, Non-Distended Extremities: No clubbing, No cyanosis, No edema, No Calf Tenderness, Peripheral Pulses Normal Skin: No rashes, No breakdown Musculoskeletal: No Muscle Wasting Neurological: Cranial nerves II-XII grossly intact, Neuro grossly intact Psych/Mental Status: Anxious Vital Signs Temp Pulse Resp BP Pulse Ox 98.4 F 98 26 H 133/108 H 98 10/10/18 11:30 10/10/18 18:00 10/10/18 18:00 10/10/18 18:00 10/10/18 18:00 Oxygen Delivery Method Room Air Weight: 178 lb 2 oz Body Mass Index (BMI) 33.7 Finger Stick Blood Glucose 115 Intake and Output for Last 24 Hours 10/08/18 10/09/18 10/10/18 22:59 23:59 23:59 Intake Total 2500 / 2500 Output Total 2049 / 2049 Balance 450 / 450 Laboratory Tests Past 24 Hrs 10/10/18 10/10/18 10/10/18 10:02 10:02 10:02 WBC 9.1 RBC 5.45 H Hgb 15.3 H Hct 45.5 MCV 83.5 MCH 28.1 MCHC 33.6 RDW 13.2 RDW Differential 39.7 Plt Count 264 MPV 10.7 Immature Gran % (Auto) 0.100 Neut % (Auto) 75.8 H Lymph % (Auto) 17.4 L [place] % (Auto) 5.7 Eos % (Auto) 0.8 Baso % (Auto) 0.2 Absolute Neuts (auto) 6.9 Absolute Lymphs (auto) 1.59 Total Counted Not Reportable PT 13.4 INR 1.0 APTT 29.3 Activated Clotting Time Sodium 131 L Potassium 4.7 Chloride 96 L Carbon Dioxide 21.0 Anion Gap 14 BUN 21 H Creatinine 1.12 H Estim Creat Clear Calc 68.99 Est GFR (MDRD) Af Amer 64 Est GFR (MDRD) Non-Af 53 L BUN/Creatinine Ratio 18.8 Glucose 516 H* Calcium 9.3 Troponin I 6.110 H* 10/10/18 10/10/18 10:23 10:51 WBC RBC Hgb Hct MCV MCH MCHC RDW RDW Differential Plt Count MPV Immature Gran % (Auto) Neut % (Auto) Lymph % (Auto) [place] % (Auto) Eos % (Auto) Baso % (Auto) Absolute Neuts (auto) Absolute Lymphs (auto) Total Counted PT INR APTT Activated Clotting Time 202 H 235 H Sodium Potassium Chloride Carbon Dioxide Anion Gap BUN Creatinine Estim Creat Clear Calc Est GFR (MDRD) Af Amer Est GFR (MDRD) Non-Af BUN/Creatinine Ratio Glucose Calcium Troponin I POC Glucose 10/10/18 10/10/18 16:23 13:11 POC Glucose 276 H 346 H Assessment/Plan All Active Problems STEMI (ST elevation myocardial infarction) (Acute) Hyponatremia (Acute) S/P PTCA (percutaneous transluminal coronary angioplasty) (Acute) Abnormal mammogram (Acute) Impressions 1. STEMI secondary to 99% occlusion of the mid LAD 2. Status post PTCA with 2 stents placed in the LAD 3. Coronary artery disease involving [place] coronary arteries including the LCx, LAD and RCA 4. Ischemic cardiomyopathy with a 35% ejection fraction on cath 5. Diabetes mellitus type 2 6. Hyperlipidemia 7. History of asthma 8. Reported rheumatoid arthritis-on no medications 9. Reported fibromyalgia 10. Recent abnormal mammogram-scheduled for breast biopsy later this month 11. Hyponatremia 12. Stage III chronic renal failure 13. increasing memory difficulty for 6 months Admitted to the intensive care unit post cath/drug-eluting stents Brilinta and aspirin-Will need to antiplatelet agents for at least one year Carvedilol 3.125 mg p.o. twice daily Pravastatin 40 mg nightly Spironolactone 12.5 mg daily Lisinopril 2.5 mg daily 1800-calorie diet with Accu-Cheks 4 times daily and resume her home insulin schedule Echocardiogram in the a.m. Lipid panel, liver panel, magnesium, phosphorus, BMP in the AM. TSH, PANCHO, B12 ammonia in the AM and a CT brain in the future Cardiac rehab consultation Will discuss with Dr. Conti whether she can proceed with the scheduled breast bx at the end of the month or if she should wait 6 weeks Code Visit Inpatient E&M: [id number] [facility] L3
[2018-10-10 21:11] LABS: Bedside Glucose 307 mg/dL (70-110)
[2018-10-10] MEDS: TICAGRELOR 90 MG TABLET PO (21:13)
[2018-10-10] MEDS: traZODone 100 MG Tablet 200 MG PO (21:13)
[2018-10-10] MEDS: Pravastatin 40 MG Tablet PO (21:13)
[2018-10-10] MEDS: Insulin Lispro 100 UNIT/ML INSULN.PEN 10 UNIT SC (23:29)
[2018-10-11] VITALS (18 sets, daily range): BP systolic 81–161; BP diastolic 51–118; PULSE 71–97; RESP 16–27; TEMP 36.7–37.1; O2SAT 91–98
[2018-10-11 04:41] LABS: Hematocrit 41.2 % (37-47); Mean Corpuscular Hgb 28.6 pg (27.0-32.0); Mean Corpuscular Volume 84.1 fL (81-99); Platelet Count 265 K/mm3 (150-450); RBC Distribution Width CV 13.4 % (11.6-14.6); RBC Distribution Width SD 40.8 fl (35.1-43.9); White Blood Count 8.1 K/mm3 (4.4-11.0)
[2018-10-11 04:52] LABS: Scan Indicated on CBC? Y/N NO
[2018-10-11 06:20] LABS: AST(SGOT) 40 U/L (15-37); Alanine Aminotransfer ALT/SGPT 24 U/L (13-56); Albumin, Serum 2.9 g/dL (3.2-5.0); Alkaline Phosphatase 54 U/L (45-117); Anion Gap 12 (5-15); BUN 16 mg/dL (7-18); BUN/Creat Ratio 25.2 RATIO (10-20); Calcium,Total 7.5 mg/dL (8.5-10.1); Chloride 106 mmol/L (98-107); Cholesterol 120 mg/dL (200); Creatinine, Serum 0.64 mg/dL (0.55-1.02); EST Glomerular Filtration Rate 102 mL/min (>60); Est Glom Filt Rate - Afr Amer 123 mL/min (>60); Estimated Creatinine Clearance 112.81 ml/min; Glucose 255 mg/dL (74-106); High Density Lipoprotein 37 mg/dL; Magnesium 1.8 mg/dL (1.6-2.6); Potassium 3.5 mmol/L (3.5-5.1); Protein, Total 5.9 g/dL (6.4-8.2); Rheumatoid Factor < 10.0 IU/mL (<15); Sodium Level 139 mmol/L (136-145); Thyroid Stim Hormone (TSH) 1.29 uIU/mL (0.358-3.74); Triglycerides 169 mg/dL; Very Low Density Lipoprotein 34 mg/dL (5-40)
[2018-10-11 06:23] LABS: Phosphorus 2.6 mg/dL (2.5-4.9)
[2018-10-11 06:55] LABS: Bedside Glucose 273 mg/dL (70-110)
--- NOTE | 2018-10-11 07:39 | PCM.PROGNOTE ---
Patient Problems: Active and Suspected Problems STEMI (ST elevation myocardial infarction) (Acute) Hyponatremia (Acute) S/P PTCA (percutaneous transluminal coronary angioplasty) (Acute) LIZETTE X 2 to the LAD on 10/10/18 Abnormal mammogram (Acute) has an appt for later this month for a biopsy Subjective: Patient is a 58-year-old female who presented to the emergency department at [facility] on 10/10/2018 complaining of chest pain and EKG revealed ST segment elevation in the anteroseptal leads. She was taken to Percolator Operator and had a 99% occlusion of the mid LAD and 2 stents were deployed. There is a 70% stenosis in the distal LCx and a 60% stenosis in the mid RCA. Left ventricular ejection fraction is decreased at 35%. All events of the past 24 hours been reviewed. She has been afebrile since admission Vital signs are stable. She is 96-98% saturated on room air. Fluid balance since admission is +785. All lab was personally reviewed. CBC is within normal limits. Potassium is borderline low at 3.5. BUN is 16 and the creatinine is 0.64. TSH is within normal limits and the B12 is pending. LDL is 49 with an HDL of 37. Rheumatoid factor was less than 10, PANCHO is pending. Hemoglobin A1c is 11.2%. Phosphorus and magnesium are within normal limits. ECHO has been ordered for today TELEMETRY: NSR with no ectopy overnight She is c/o nausea and had an emesis today. Denies abdominal pain. Unfortunately did not tell anyone she was nauseated prior to getting her full dose of insulin today. No chest pain, no shortness of breath, no palpitations, no diarrhea. Blood sugars have been high on her home insulin regimen Objective: General: alert, oriented X3, NAD, appropriate with a somewhat strange affect...always apologizing for things and seems confused Neck: supple, trachea midline, carotids have brisk upstroke and normal pulse volume, no JVD, no carotid bruits Lungs: CTA, symmetric chest expansion, not tachypneic, able to lie flat with no respiratory distress, no conversational dyspnea, no accessory muscle use, no rales Heart: Regular rate and rhythm, normal S1, normal S2, no murmur, no gallop, no rub, PMI is on the midclavicular line Abdomen: soft, NT, ND, BS's present Extremities: no edema, no calf tenderness, peripheral pulses are normal, no cyanosis - Physical Exam Vital Signs Temp Pulse Resp BP Pulse Ox 98.7 F 95 26 H 102/69 96 10/11/18 04:00 10/11/18 07:00 10/11/18 07:00 10/11/18 07:00 10/11/18 07:00 Oxygen Delivery Method Room Air Weight: 166 lb 7.184 oz Body Mass Index (BMI) 33.7 Finger Stick Blood Glucose 115 Intake and Output for Last 24 Hours 10/09/18 10/10/18 10/11/18 23:59 23:59 23:59 Intake Total 3460 / 3460 275 / 275 Output Total 2450 / 2450 500 / 500 Balance 1010 / 1010 -225 / -225 Laboratory Tests Past 24 Hrs 10/10/18 10/10/18 10/10/18 10:02 10:02 10:02 WBC 9.1 RBC 5.45 H Hgb 15.3 H Hct 45.5 MCV 83.5 MCH 28.1 MCHC 33.6 RDW 13.2 RDW Differential 39.7 Plt Count 264 MPV 10.7 Immature Gran % (Auto) 0.100 Neut % (Auto) 75.8 H Lymph % (Auto) 17.4 L [place] % (Auto) 5.7 Eos % (Auto) 0.8 Baso % (Auto) 0.2 Absolute Neuts (auto) 6.9 Absolute Lymphs (auto) 1.59 Total Counted Not Reportable PT 13.4 INR 1.0 APTT 29.3 Activated Clotting Time Sodium 131 L Potassium 4.7 Chloride 96 L Carbon Dioxide 21.0 Anion Gap 14 BUN 21 H Creatinine 1.12 H Estim Creat Clear Calc 68.99 Est GFR (MDRD) Af Amer 64 Est GFR (MDRD) Non-Af 53 L BUN/Creatinine Ratio 18.8 Glucose 516 H* Calcium 9.3 Phosphorus Magnesium Total Bilirubin AST ALT Alkaline Phosphatase Ammonia Troponin I 6.110 H* Total Protein Albumin Globulin Albumin/Globulin Ratio Triglycerides Cholesterol LDL Cholesterol VLDL Cholesterol HDL Cholesterol Vitamin B12 TSH Rheumatoid Factor PANCHO Screen DIONICIO-1 Antibody SS-A/Ro IgG Antibody SS-B/La IgG Antibody Sm (Seo) Antibody PORTABLE ROUTER OPERATOR Antibody Scl-70 Scleroderma Ab Double Strand DNA Ab Centromere B Antibody 10/10/18 10/10/18 10/11/18 10:23 10:51 03:50 WBC 8.1 RBC 4.90 Hgb 14.0 Hct 41.2 MCV 84.1 MCH 28.6 MCHC 34.0 RDW 13.4 RDW Differential 40.8 Plt Count 265 MPV 11.0 Immature Gran % (Auto) Neut % (Auto) Lymph % (Auto) [place] % (Auto) Eos % (Auto) Baso % (Auto) Absolute Neuts (auto) Absolute Lymphs (auto) Total Counted PT INR APTT Activated Clotting Time 202 H 235 H Sodium Potassium Chloride Carbon Dioxide Anion Gap BUN Creatinine Estim Creat Clear Calc Est GFR (MDRD) Af Amer Est GFR (MDRD) Non-Af BUN/Creatinine Ratio Glucose Calcium Phosphorus Magnesium Total Bilirubin AST ALT Alkaline Phosphatase Ammonia Troponin I Total Protein Albumin Globulin Albumin/Globulin Ratio Triglycerides Cholesterol LDL Cholesterol VLDL Cholesterol HDL Cholesterol Vitamin B12 TSH Rheumatoid Factor PANCHO Screen DIONICIO-1 Antibody SS-A/Ro IgG Antibody SS-B/La IgG Antibody Sm (Seo) Antibody PORTABLE ROUTER OPERATOR Antibody Scl-70 Scleroderma Ab Double Strand DNA Ab Centromere B Antibody 10/11/18 10/11/18 10/11/18 03:50 03:50 03:50 WBC RBC Hgb Hct MCV MCH MCHC RDW RDW Differential Plt Count MPV Immature Gran % (Auto) Neut % (Auto) Lymph % (Auto) [place] % (Auto) Eos % (Auto) Baso % (Auto) Absolute Neuts (auto) Absolute Lymphs (auto) Total Counted PT INR APTT Activated Clotting Time Sodium 139 Potassium 3.5 Chloride 106 Carbon Dioxide 21.0 Anion Gap 12 BUN 16 Creatinine 0.64 Estim Creat Clear Calc 112.81 Est GFR (MDRD) Af Amer 123 Est GFR (MDRD) Non-Af 102 BUN/Creatinine Ratio 25.2 H Glucose 255 H Calcium 7.5 L Phosphorus 2.6 Magnesium 1.8 Total Bilirubin 0.60 AST 40 H ALT 24 Alkaline Phosphatase 54 Ammonia Troponin I Total Protein 5.9 L Albumin 2.9 L Globulin 3.0 Albumin/Globulin Ratio 1.0 Triglycerides 169 Cholesterol 120 LDL Cholesterol 49 VLDL Cholesterol 34 HDL Cholesterol 37 L Vitamin B12 Pending TSH 1.29 Rheumatoid Factor < 10.0 PANCHO Screen DIONICIO-1 Antibody SS-A/Ro IgG Antibody SS-B/La IgG Antibody Sm (Seo) Antibody PORTABLE ROUTER OPERATOR Antibody Scl-70 Scleroderma Ab Double Strand DNA Ab Centromere B Antibody 10/11/18 10/11/18 03:50 03:50 WBC RBC Hgb Hct MCV MCH MCHC RDW RDW Differential Plt Count MPV Immature Gran % (Auto) Neut % (Auto) Lymph % (Auto) [place] % (Auto) Eos % (Auto) Baso % (Auto) Absolute Neuts (auto) Absolute Lymphs (auto) Total Counted PT INR APTT Activated Clotting Time Sodium Potassium Chloride Carbon Dioxide Anion Gap BUN Creatinine Estim Creat Clear Calc Est GFR (MDRD) Af Amer Est GFR (MDRD) Non-Af BUN/Creatinine Ratio Glucose Calcium Phosphorus Magnesium Total Bilirubin AST ALT Alkaline Phosphatase Ammonia 26.0 Troponin I Total Protein Albumin Globulin Albumin/Globulin Ratio Triglycerides Cholesterol LDL Cholesterol VLDL Cholesterol HDL Cholesterol Vitamin B12 TSH Rheumatoid Factor PANCHO Screen Pending DIONICIO-1 Antibody Pending SS-A/Ro IgG Antibody Pending SS-B/La IgG Antibody Pending Sm (Seo) Antibody Pending PORTABLE ROUTER OPERATOR Antibody Pending Scl-70 Scleroderma Ab Pending Double Strand DNA Ab Pending Centromere B Antibody Pending POC Glucose 10/11/18 10/10/18 10/10/18 06:42 21:07 16:23 POC Glucose 273 H 307 H 276 H 10/10/18 13:11 POC Glucose 346 H Medical Necessity - Tobacco Use Smoking Status: Never smoker Tobacco Use: Non-smoker Assessment/Plan All Active Problems STEMI (ST elevation myocardial infarction) (Acute) Hyponatremia (Acute) S/P PTCA (percutaneous transluminal coronary angioplasty) (Acute) Abnormal mammogram (Acute) Impressions 1. STEMI secondary to 99% occlusion of the mid LAD 2. Status post PTCA with 2 stents placed in the LAD 3. Coronary artery disease involving [place] coronary arteries including the LCx, LAD and RCA 4. Ischemic cardiomyopathy with a 35% ejection fraction on cath 5. Diabetes mellitus type 2-uncontrolled, hemoglobin A1c is 11.2%. 6. Hyperlipidemia 7. History of asthma 8. Reported rheumatoid arthritis-on no medications and the RA is <10 9. Reported fibromyalgia 10. Recent abnormal mammogram-scheduled for breast biopsy later this month 11. Hyponatremia 12. Stage III chronic renal failure 13. increasing memory difficulty for 6 months-TSH and B12 are within normal limits. PANCHO is pending. Serum ammonia was normal at 26. 14. N/V this AM Transfer to progressive care unit Echocardiogram today Supplement potassium to keep it closer to 4. Out of bed an ambulating today Will discuss with Dr. Conti Needs a CTB sometime in the future due to increased memory difficult for the past 6 months....may also need to follow up with neurology Adjust the insulin regimen - DC the NPH and use Lantus BID and a SSI coverage today since she is nauseated and vomiting. Will D/W Dr. Conti if he would prefer waiting 6 weeks prior to her scheduled breast biopsy the end of the month. Code Visit Inpatient E&M: 39150 Subs Hosp L3
[2018-10-11] MEDS: Aspirin E.C. 81 MG Tablet PO (07:56)
[2018-10-11 08:05] LABS: Vitamin B12 564 pg/mL (211-911)
[2018-10-11 08:35] LABS: Hemoglobin A1c 11.2 % (4.2-6.3)
[2018-10-11] MEDS: Insulin Lispro 100 UNIT/ML INSULN.PEN 14 UNIT SC (08:53)
[2018-10-11] MEDS: Insulin Lispro 100 UNIT/ML INSULN.PEN SC ×2 (08:53→22:08)
[2018-10-11] MEDS: Insulin NPH Human 100 UNITS/ML PEN 22 UNITS SC (08:54)
[2018-10-11] MEDS: Ondansetron 4 MG/2 ML Vial IV (09:28)
[2018-10-11 09:31] LABS: Bedside Glucose 265 mg/dL (70-110)
--- NOTE | 2018-10-11 10:00 | EKG12_ITS ---
Test Reason : AM EKG Blood Pressure : / mmHG Vent. Rate : 090 BPM Atrial Rate : 090 BPM P-R Int : 136 ms QRS Dur : 080 ms QT Int : 350 ms P-R-T Axes : 067 052 086 degrees QTc Int : 428 ms Normal sinus rhythm Normal ECG When compared with ECG of 10-OCT-2018 21:18, MANUAL COMPARISON REQUIRED, DATA IS UNCONFIRMED Confirmed by MALLORIE MYERS, KATINA ([id number]), news assignment editor OMID FLORENCE ([id number]) on 10/14/2018 9:08:00 AM Referred By: Opal Mason Confirmed By:KATINA NOBLES MD
[2018-10-11 10:11] LABS: Bedside Glucose 265 mg/dL (70-110)
[2018-10-11] MEDS: Spironolactone 25 MG Tablet 12.5 MG PO (10:53)
[2018-10-11] MEDS: Citalopram 20 MG Tablet PO (10:54)
[2018-10-11] MEDS: TICAGRELOR 90 MG TABLET PO ×2 (10:55→22:06)
[2018-10-11] MEDS: Famotidine 20 MG Tablet PO ×2 (10:58→22:22)
[2018-10-11] MEDS: Carvedilol 3.125 MG TABLET PO ×2 (11:01→22:05)
[2018-10-11] MEDS: Lisinopril 2.5 MG Tablet PO (11:01)
--- NOTE | 2018-10-11 11:18 | ECHOD_ITS ---
Reason For Study: S/P SC Procedure This was a 2D Doppler, Color Flow transthoracic echocardiogram. Exam performed portable in ICU/CCU. Left Ventricle Normal size and thickness. The estimated ejection fraction is 45-50 %. Stage 1 diastolic dysfunction. Mid-Anterior : Mildly hypokinetic. Mid-anteroseptal : Severely Hypokinetic. Anterior [place] : Akinetic. Inferior [place] : Akinetic. Right Ventricle Normal size and thickness. Normal systolic function. Atria Normal left atrium. Normal right atrium. Normal atrial septum. Mitral Valve The mitral valve is structurally normal. No prolapse or stenosis seen. Mild (1+) mitral valve insufficiency. Tricuspid Valve Normal tricuspid valve. Unable to estimate RV systolic pressure due to inadequate jet, pulmonary artery pressure probably normal. Aortic Valve Trisinus/trileaflet aortic valve. Pulmonic Valve Normal pulmonic valve. Great Vessels Normal aortic root. Normal arch. Normal inferior vena cava. Inferior vena cava collapse with sniff. Pericardium/Pleural No pericardial effusion. MMode/2D Measurements & Calculations LVIDd: 3.3 cm IVSd: 1.2 cm Ao root diam: 2.9 cm LVIDs: 2.0 cm LVPWd: 1.2 cm RVDd: 3.2 cm FS: 38.9 % LAV(MOD-bp): 25.6 ml LVAd ap4: 20.3 cm2 SV(MOD-sp4): 26.4 ml LAV(MOD-bp) Indexed: 14.6 ml/m2 EDV(MOD-sp4): 47.5 ml LAV(MOD-sp2): 18.2 ml EDV(sp4-el): 50.8 ml LAV(MOD-sp4): 31.2 ml LVAs ap4: 12.7 cm2 ESV(MOD-sp4): 21.1 ml ESV(sp4-el): 21.8 ml EF(MOD-sp4): 55.6 % EF(sp4-el): 57.1 % SV(sp4-el): 29.0 ml LA A4 area: 12.8 cm2 LA dimension(2D): 3.4 cm RA A4 area: 9.5 cm2 Time Measurements MV dec time: 0.19 sec Doppler Measurements & Calculations MV E max lyle: 57.0 cm/sec Lat Peak E' Lyle: 3.6 cm/sec Med Peak E' Lyle: 4.7 cm/sec MV A max lyle: 88.7 cm/sec E/E' lat: 15.8 E/E' med: 12.1 MV E/A: 0.64 Ao V2 max: 135.6 cm/sec LV V1 max: 103.8 cm/sec PA V2 max: 100.0 cm/sec Ao max P.4 mmHg LV V1 max P.3 mmHg Interpretation Summary The estimated ejection fraction is 45-50 %. Stage 1 diastolic dysfunction. Mild (1+) mitral valve insufficiency. Unable to estimate RV systolic pressure due to inadequate jet, pulmonary artery pressure probably normal. Compared to echo report dated 12/21/2008, LV function has been reduced from 60% to 45% with new anterior/apical hypokinesis. Ordering Physician: Js Conti Referring Physician: LEE SAVAGE Performed By: Patricia Zimmerman RDCS, RVT
--- NOTE | 2018-10-11 11:35 | CASEMGMT ---
RN CM Assessment Presentation: STEMI, stents to mid LAD. Intro role of CM and purpose of RN CM assessment to patient and her . Pt is sleepy, but is able to participate in assessment. . PCP: Dr. Quinones Specialists: Cardiology Preferred Pharmacy: [facility] Insurance: [facility] Prescription Benefit: yes. Brilinta ordered. Savings card given to pt's and explained. LNOK: , Tello Reich Living Arrangements: Lives with who states pt is in Transportation: pt does not drive; provides transportation. DME: cane, no other DME, no oxygen use. HHC: none DC PLAN: anticipate home with family support. Brilinta savings card given to . Sandy BAZANN RN ACM
[2018-10-11] MEDS: Acetaminophen 325 MG Tablet 650 MG PO (11:56)
--- NOTE | 2018-10-11 11:59 | PCM.PN.CARD ---
Subjectve: No complaints. No chest pain. No shortness of breath. Ambulating. Objective: Vital Signs Temp Pulse Resp BP Pulse Ox 98.7 F 94 18 91/70 96 10/11/18 04:00 10/11/18 08:00 10/11/18 08:00 10/11/18 08:00 10/11/18 08:00 Oxygen Delivery Method Room Air Weight: 75.5 kg Body Mass Index (BMI) 33.7 Finger Stick Blood Glucose 115 Intake and Output for Last 24 Hours 10/09/18 10/10/18 10/11/18 23:59 23:59 23:59 Intake Total 3460 / 3460 575 / 575 Output Total 2450 / 2450 900 / 900 Balance 1010 / 1010 -325 / -325 General: Healthy Appearing, Awake, Alert, Oriented x 3, No Acute Distress HEENT: Atraumatic, Normocephalic Oral: Moist Mucosa Lungs: Clear to auscultation Cardiovascular: Regular Rhythm, Normal S1, Normal S2 Vascular: - - Right radial pulse 2+. Abdomen: Bowel Sounds Present, Soft, - Extremities: No edema 10/11/18 03:50: WBC 8.1, RBC 4.90, Hgb 14.0, Hct 41.2, MCV 84.1, MCH 28.6, MCHC 34.0, RDW 13.4, RDW Differential 40.8, Plt Count 265, MPV 11.0 10/11/18 03:50: Sodium 139, Potassium 3.5, Chloride 106, Carbon Dioxide 21.0, Anion Gap 12, BUN 16, Creatinine 0.64, Est GFR (MDRD) Af Amer 123, Est GFR (MDRD) Non-Af 102, BUN/Creatinine Ratio 25.2 H, Glucose 255 H, Calcium 7.5 L, Magnesium 1.8, Total Bilirubin 0.60, Triglycerides 169, Cholesterol 120, LDL Cholesterol 49, VLDL Cholesterol 34, HDL Cholesterol 37 L 10/11/18 03:50: Phosphorus 2.6 10/11/18 03:50: Hemoglobin A1c 11.2 H Rhythm: Normal sinus rhythm EKG: Normal sinus rhythm. ECHO: Stress Test: Cardiac Cath: PCI: CT Surgery: Holter monitor: EPS: PPM: CXR: Chest CT Scan: Medical Necessity - Tobacco Use Smoking Status: Never smoker Tobacco Use: Non-smoker Assessment/Plan 1. Acute anterior myocardial infarction. Status post drug-eluting stents to the mid left anterior descending artery. Stable. Asymptomatic. 2. Continue aspirin lifelong. Brilinta for at least one year. Start low-dose beta-blockers. Start PURNIMA inhibitors. Statins. 3. LV systolic dysfunction. Echocardiogram pending. 4. Patient has residual lesions in RCA and left circumflex. Follow-up as outpatient for staged intervention versus continued medical management 5. Diabetes mellitus. 6. Dyslipidemia Transfer to stepdown. If remains stable, then home in the morning.
[2018-10-11 12:05] LABS: Bedside Glucose 139 mg/dL (70-110)
[2018-10-11 16:46] LABS: Bedside Glucose 129 mg/dL (70-110)
[2018-10-11] MEDS: traZODone 100 MG Tablet 200 MG PO (22:05)
[2018-10-11] MEDS: Pravastatin 40 MG Tablet PO (22:05)
[2018-10-11 22:26] LABS: Bedside Glucose 211 mg/dL (70-110)
[2018-10-12 03:00] VITALS: PULSE 76
[2018-10-12 03:27] VITALS: BP 101/45; PULSE 77; RESP 18; TEMP 36.7; O2SAT 96
[2018-10-12 06:55] LABS: Bedside Glucose 184 mg/dL (70-110)
[2018-10-12 07:13] VITALS: PULSE 76
[2018-10-12 07:48] LABS: Anion Gap 7 (5-15); BUN 13 mg/dL (7-18); BUN/Creat Ratio 17.6 RATIO (10-20); Calcium,Total 8.5 mg/dL (8.5-10.1); Chloride 105 mmol/L (98-107); Creatinine, Serum 0.74 mg/dL (0.55-1.02); EST Glomerular Filtration Rate 86 mL/min (>60); Est Glom Filt Rate - Afr Amer 104 mL/min (>60); Estimated Creatinine Clearance 98.08 ml/min; Glucose 195 mg/dL (74-106); Potassium 4.2 mmol/L (3.5-5.1); Sodium Level 135 mmol/L (136-145)
[2018-10-12 08:00] VITALS: O2SAT 96
[2018-10-12] MEDS: Citalopram 20 MG Tablet PO (08:18)
[2018-10-12] MEDS: Spironolactone 25 MG Tablet 12.5 MG PO (08:18)
[2018-10-12] MEDS: Carvedilol 3.125 MG TABLET PO (08:18)
[2018-10-12] MEDS: Famotidine 20 MG Tablet PO (08:18)
[2018-10-12] MEDS: Lisinopril 2.5 MG Tablet PO (08:18)
[2018-10-12] MEDS: Insulin Lispro 100 UNIT/ML INSULN.PEN SC ×2 (08:19→11:33)
[2018-10-12] MEDS: TICAGRELOR 90 MG TABLET PO (08:19)
[2018-10-12] MEDS: Aspirin E.C. 81 MG Tablet PO (08:19)
[2018-10-12 09:28] VITALS: BP 95/64; PULSE 80; RESP 16; TEMP 36.9; O2SAT 98
--- NOTE | 2018-10-12 10:00 | EKG12_ITS ---
Test Reason : AM EKG Blood Pressure : / mmHG Vent. Rate : 081 BPM Atrial Rate : 081 BPM P-R Int : 140 ms QRS Dur : 084 ms QT Int : 382 ms P-R-T Axes : 057 036 071 degrees QTc Int : 443 ms Normal sinus rhythm Normal ECG When compared with ECG of 11-OCT-2018 05:02, MANUAL COMPARISON REQUIRED, DATA IS UNCONFIRMED Confirmed by KEO RIBERA ([id number]), communications editor THIAGO RODRIGUEZ ([id number]) on 10/17/2018 5:12:57 PM Referred By: Opal Mason Confirmed By:KEO RIBERA
[2018-10-12 11:13] VITALS: PULSE 72
[2018-10-12] MEDS: Acetaminophen 325 MG Tablet 650 MG PO (11:33)
[2018-10-12 12:11] LABS: Bedside Glucose 229 mg/dL (70-110)
--- NOTE | 2018-10-12 13:43 | PCM.DC ---
- Discharge Diagnoses Current Active Problems: Current Active and Chronic Problems STEMI (ST elevation myocardial infarction) (Acute) Learning disabilities (Chronic) Fibromyalgia (Chronic) Rheumatoid arthritis (Chronic) Does not see a strip feeder and is on new medication for rheumatoid arthritis Memory loss of unknown cause (Chronic) started about 6 months ago Hyponatremia (Acute) Chronic renal failure, stage 3 (moderate) (Chronic) S/P PTCA (percutaneous transluminal coronary angioplasty) (Acute) LIZETTE X 2 to the LAD on 10/10/18 Abnormal mammogram (Acute) has an appt for later this month for a biopsy You will use the following diet at home:: Calorie/Carbohydrate Controlled (specify 1200, 1400, etc) - 1800 calories, Cardiac Your food should be the consistency of: Regular Your liquids should be the consistency of: Regular/Thin Discharge Activity: - - You may start a walking program and work up to walking for 30 minutes 5-6 days a week. No hills initially. No strenuous activity. May resume sexual activity in: 2 weeks Call your doctor if you observe: Fever of 101 or Higher, Shortness of breath, Dizziness, Fainting spells, Swelling in the ankles, Chest pain Additional Instructions: 1. Your HGBA1C is 11.2% and is not controlled. The goal for the HGBA1C is 7 or less. 2. There was damage to your heart from the heart attack and now your heart is weak. You may get tired more easily but, you should work up to walking for 30 minutes a day. 3. I want you to follow up with the court collections officer in 2 weeks. 4. You will need to do cardiac rehab. Allergies/Adverse Reactions: Allergies calcium carbonate [From Florical] Allergy (Verified 10/10/18 09:53) Swelling codeine Allergy (Verified 10/10/18 09:53) Swelling egg Allergy (Verified 10/10/18 09:53) Unknown fish derived Allergy (Verified 10/10/18 09:53) Unknown nitrofurantoin macrocrystalline [From Macrodantin] Allergy (Verified 10/10/18 09:53) Swelling oxycodone HCl [From Percocet] Allergy (Verified 10/10/18 09:53) Hives propoxyphene napsylate [From Darvocet-N 100] Allergy (Verified 10/10/18 09:53) Hives sodium fluoride [From Florical] Allergy (Verified 10/10/18 09:53) Swelling Sulfa (Sulfonamide Antibiotics) Allergy (Verified 10/10/18 09:53) Unknown Medications to take at Discharge Aspirin [Aspirin, Baby] 81 mg PO DAILY 06/02/13 Albuterol Inhaler [Ventolin Hfa] 2 puff INHALATION Q6H PRN PRN 11/10/16 Citalopram Hydrobromide [Celexa] 20 mg PO DAILY 11/10/16 Fluticasone/Salmeterol [Advair 250/50 Mcg Diskus] 1 puff INHALATION BID 11/10/16 Insulin NPH Human Isophane [Humulin N] 22 unit SQ BID 11/10/16 Insulin Regular, Human [Humulin R] 14 unit SC TID 11/10/16 Polyethylene Glycol 3350 [Miralax] 17 gm PO DAILY 11/10/16 Trazodone HCl 200 mg PO QHS 11/10/16 Aspirin E.C. [Ecotrin] 81 mg PO DAILY@0800 tablet 10/12/18 Carvedilol [Coreg (Beta Vikas)] 3.125 mg PO BID #60 tablet 10/12/18 Lisinopril [Zestril] 2.5 mg PO DAILY #30 tablet 10/12/18 Pravastatin [Pravachol] 40 mg PO QHS #30 tablet 10/12/18 Spironolactone [Aldactone] 12.5 mg PO DAILY #15 tablet 10/12/18 Ticagrelor [Brilinta] 90 mg PO BID #60 tablet 10/12/18 The following prescriptions were given: Lisinopril [Zestril] 2.5 mg PO DAILY #30 tablet Pravastatin [Pravachol] 40 mg PO QHS #30 tablet Spironolactone [Aldactone] 12.5 mg PO DAILY #15 tablet Carvedilol [Coreg (Beta Vikas)] 3.125 mg PO BID #60 tablet Ticagrelor [Brilinta] 90 mg PO BID #60 tablet Primary Care Physician: Anup Quinones MD [Primary Care Provider] - Please follow up with your Primary Care Physician in: 5-7 days Test Results: Test results from this visit will be discussed in further detail at your follow-up appointment, if applicable. Please Follow Up With: Oskar Olsen MD When: 2 weeks Proposed Discharge Date: 10/12/18
--- NOTE | 2018-10-12 13:51 | DCINST_ITS ---
- Discharge Diagnoses Current Active Problems: Current Active and Chronic Problems STEMI (ST elevation myocardial infarction) (Acute) Learning disabilities (Chronic) Fibromyalgia (Chronic) Rheumatoid arthritis (Chronic) Does not see a line up examiner and is on new medication for rheumatoid arthritis Memory loss of unknown cause (Chronic) started about 6 months ago Hyponatremia (Acute) Chronic renal failure, stage 3 (moderate) (Chronic) S/P PTCA (percutaneous transluminal coronary angioplasty) (Acute) LIZETTE X 2 to the LAD on 10/10/18 Abnormal mammogram (Acute) has an appt for later this month for a biopsy You will use the following diet at home:: Calorie/Carbohydrate Controlled (specify 1200, 1400, etc) - 1800 calories, Cardiac Your food should be the consistency of: Regular Your liquids should be the consistency of: Regular/Thin Discharge Activity: - - You may start a walking program and work up to walking for 30 minutes 5-6 days a week. No hills initially. No strenuous activity. May resume sexual activity in: 2 weeks Call your doctor if you observe: Fever of 101 or Higher, Shortness of breath, Dizziness, Fainting spells, Swelling in the ankles, Chest pain Additional Instructions: 1. Your HGBA1C is 11.2% and is not controlled. The goal for the HGBA1C is 7 or less. 2. There was damage to your heart from the heart attack and now your heart is weak. You may get tired more easily but, you should work up to walking for 30 minutes a day. 3. I want you to follow up with the healthcare network consultant in 2 weeks. 4. You will need to do cardiac rehab. Allergies/Adverse Reactions: Allergies calcium carbonate [From Florical] Allergy (Verified 10/10/18 09:53) Swelling codeine Allergy (Verified 10/10/18 09:53) Swelling egg Allergy (Verified 10/10/18 09:53) Unknown fish derived Allergy (Verified 10/10/18 09:53) Unknown nitrofurantoin macrocrystalline [From Macrodantin] Allergy (Verified 10/10/18 09:53) Swelling oxycodone HCl [From Percocet] Allergy (Verified 10/10/18 09:53) Hives propoxyphene napsylate [From Darvocet-N 100] Allergy (Verified 10/10/18 09:53) Hives sodium fluoride [From Florical] Allergy (Verified 10/10/18 09:53) Swelling Sulfa (Sulfonamide Antibiotics) Allergy (Verified 10/10/18 09:53) Unknown Medications to take at Discharge Aspirin [Aspirin, Baby] 81 mg PO DAILY 06/02/13 Albuterol Inhaler [Ventolin Hfa] 2 puff INHALATION Q6H PRN PRN 11/10/16 Citalopram Hydrobromide [Celexa] 20 mg PO DAILY 11/10/16 Fluticasone/Salmeterol [Advair 250/50 Mcg Diskus] 1 puff INHALATION BID 11/10/16 Insulin NPH Human Isophane [Humulin N] 22 unit SQ BID 11/10/16 Insulin Regular, Human [Humulin R] 14 unit SC TID 11/10/16 Polyethylene Glycol 3350 [Miralax] 17 gm PO DAILY 11/10/16 Trazodone HCl 200 mg PO QHS 11/10/16 Aspirin E.C. [Ecotrin] 81 mg PO DAILY@0800 tablet 10/12/18 Carvedilol [Coreg (Beta Vikas)] 3.125 mg PO BID #60 tablet 10/12/18 Lisinopril [Zestril] 2.5 mg PO DAILY #30 tablet 10/12/18 Pravastatin [Pravachol] 40 mg PO QHS #30 tablet 10/12/18 Spironolactone [Aldactone] 12.5 mg PO DAILY #15 tablet 10/12/18 Ticagrelor [Brilinta] 90 mg PO BID #60 tablet 10/12/18 The following prescriptions were given: Lisinopril [Zestril] 2.5 mg PO DAILY #30 tablet Pravastatin [Pravachol] 40 mg PO QHS #30 tablet Spironolactone [Aldactone] 12.5 mg PO DAILY #15 tablet Carvedilol [Coreg (Beta Vikas)] 3.125 mg PO BID #60 tablet Ticagrelor [Brilinta] 90 mg PO BID #60 tablet Primary Care Physician: Anup Quinones MD [Primary Care Provider] - Please follow up with your Primary Care Physician in: 5-7 days Test Results: Test results from this visit will be discussed in further detail at your follow- up appointment, if applicable. Please Follow Up With: Oskar Olsen MD When: 2 weeks Proposed Discharge Date: 10/12/18
--- NOTE | 2018-10-12 13:55 | DS.PCM_ITS ---
Discharge Date and Diagnosis Date of Admission: 10/10/18 Date of Discharge: 10/12/18 - Primary Discharge Diagnosis Active and Suspected Problems STEMI (ST elevation myocardial infarction) (Acute) - anteroseptal Hyponatremia (Acute) S/P PTCA (percutaneous transluminal coronary angioplasty) (Acute) LIZETTE X 2 to the LAD on 10/10/18 Abnormal mammogram (Acute) has an appt for later this month for a biopsy - Secondary Discharge Diagnosis Chronic Problems Learning disabilities (Chronic) Fibromyalgia (Chronic) Rheumatoid arthritis (Chronic) Does not see a manager corporate responsibility and is on new medication for rheumatoid arthritis Memory loss of unknown cause (Chronic) started about 6 months ago Chronic renal failure, stage 3 (moderate) (Chronic) HTN (hypertension) (Chronic) HLD (hyperlipidemia) (Chronic) Family history of ischemic heart disease (Chronic) Diabetes mellitus type II, uncontrolled (Chronic) Depressive disorder (Chronic) Coronary atherosclerosis of [place] coronary vessel (Chronic) Asthma (Chronic) Hospital Course and Treatment Imaging Results: Clinical Impression(s) from Imaging Studies Chest X-Ray 10/10/18 10:02 IMPRESSION: Hyperinflation. Electronically Signed: Jay Guzmán, at 14:28 EDT , Service support , Laboratory Results - last 24 hr 10/11/18 10/11/18 10/12/18 16:38 22:02 06:15 Sodium Cancelled Potassium Cancelled Chloride Cancelled Carbon Dioxide Cancelled Anion Gap Cancelled BUN Cancelled Creatinine Cancelled Estim Creat Clear Calc Cancelled Est GFR (MDRD) Af Amer Cancelled Est GFR (MDRD) Non-Af Cancelled BUN/Creatinine Ratio Cancelled Glucose Cancelled Calcium Cancelled POC Glucose 129 H 211 H 10/12/18 10/12/18 10/12/18 06:45 07:26 11:29 Sodium 135 L Potassium 4.2 Chloride 105 Carbon Dioxide 23.0 Anion Gap 7 BUN 13 Creatinine 0.74 Estim Creat Clear Calc 98.08 Est GFR (MDRD) Af Amer 104 Est GFR (MDRD) Non-Af 86 BUN/Creatinine Ratio 17.6 Glucose 195 H Calcium 8.5 POC Glucose 184 H 229 H [facility] Operations: None Procedures: 2-D Echocardiogram - Interpretation Summary The estimated ejection fraction is 45-50 %. Stage 1 diastolic dysfunction. Mild (1+) mitral valve insufficiency. Unable to estimate RV systolic pressure due to inadequate jet, pulmonary artery pressure probably normal. Compared to echo report dated 2008, LV function has been reduced from 60% to 45% with new anterior/apical hypokinesis., Cardiac catheterization - 2 drug-eluting stents to the LAD Summary of Care Provided: The patient is a 58 year old F with a past medical history of diabetes mellitus type 2, hyperlipidemia, asthma, depression, learning disabilities, morbid obesity and CAD who [facility] complaining of chest pain that started on 10/07/2018. The chest pain got much worse at 3 AM on 10/10/2018. The chest pain was reported as left chest pain and it radiated down the left arm and into the left shoulder. She had nausea and one episode of emesis at her doctor's office. The chest pain was associated with shortness of breath. EKG done at her physician's office showed ST segment elevation. Repeat EKG done in the emergency room showed sinus tachycardia with anterior ST segment elevation in the precordial leads. Code STEMI was called and the patient was ta oliver to the Account Installation Specialist. She received heparin, Brilinta and metoprolol in the emergency department. Cardiac catheterization showed a 99% occlusion of the mid LAD, 70% occlusion of the distal left circumflex and a 60% occlusion of the right RCA. Left ventriculogram showed a 35% ejection fraction. 2 drug-eluting stents were inserted into the LAD and the patient was transferred [facility]. she had no reperfusion dysrhythmias overnight and the next morning had no CP and no SOB. An echocardiogram was done and showed an estimated ejection fraction of 45-50% with stage I diastolic dysfunction. There was mild MR. There was new anterior/apical hypokinesis. She was transferred to the progressive care unit. the following day she was discharged home. She will be brought back for possible staged intervention to the RCA and the LCX. She will attend cardiac rehab. She was instructed to postpone the breast biopsy procedure until 6 weeks after the OR. General: alert, oriented X3, NAD, appropriate with a somewhat strange affect...always apologizing for things and seems confused Neck: supple, trachea midline, carotids have brisk upstroke and normal pulse volume, no JVD, no carotid bruits Lungs: CTA, symmetric chest expansion, not tachypneic, able to lie flat with no respiratory distress, no conversational dyspnea, no accessory muscle use, no rales Heart: Regular rate and rhythm, normal S1, normal S2, no murmur, no gallop, no rub, PMI is on the midclavicular line Abdomen: soft, NT, ND, BS's present Extremities: no edema, no calf tenderness, peripheral pulses are normal, no cyanosis This note was generated with [employer] software. It may contain incorrect words, spelling, and punctuation that were not noted in checking the note before signing. - Physical Exam Vital Signs Temp Pulse Resp BP Pulse Ox 98.4 F 72 16 95/64 98 10/12/18 09:28 10/12/18 11:13 10/12/18 09:28 10/12/18 09:28 10/12/18 09:28 Oxygen Delivery Method Room Air Weight: 167 lb 5.294 oz Body Mass Index (BMI) 33.7 Finger Stick Blood Glucose 115 Intake and Output for Last 24 Hours 10/10/18 10/11/18 10/12/18 23:59 23:59 23:59 Intake Total 3460 / 3460 575 / 575 420 / 420 Output Total 2450 / 2450 900 / 900 Balance 1010 / 1010 -325 / -325 420 / 420 Laboratory Tests Past 24 Hrs 10/12/18 10/12/18 06:15 07:26 Sodium Cancelled 135 L Potassium Cancelled 4.2 Chloride Cancelled 105 Carbon Dioxide Cancelled 23.0 Anion Gap Cancelled 7 BUN Cancelled 13 Creatinine Cancelled 0.74 Estim Creat Clear Calc Cancelled 98.08 Est GFR (MDRD) Af Amer Cancelled 104 Est GFR (MDRD) Non-Af Cancelled 86 BUN/Creatinine Ratio Cancelled 17.6 Glucose Cancelled 195 H Calcium Cancelled 8.5 POC Glucose 10/12/18 10/12/18 10/11/18 11:29 06:45 22:02 POC Glucose 229 H 184 H 211 H 10/11/18 16:38 POC Glucose 129 H Discharge Activity: - - You may start a walking program and work up to walking for 30 minutes 5-6 days a week. No hills initially. No strenuous activity. May resume sexual activity in: 2 weeks Call your doctor if you observe: Fever of 101 or Higher, Shortness of breath, Dizziness, Fainting spells, Swelling in the ankles, Chest pain Home Medications: Medications to take at Discharge Albuterol Inhaler [Ventolin Hfa] 2 puff INHALATION Q6H PRN PRN 11/10/16 Citalopram Hydrobromide [Celexa] 20 mg PO DAILY 11/10/16 Fluticasone/Salmeterol [Advair 250/50 Mcg Diskus] 1 puff INHALATION BID 11/10/16 Insulin NPH Human Isophane [Humulin N] 22 unit SQ BID 11/10/16 Insulin Regular, Human [Humulin R] 14 unit SC TID 11/10/16 Polyethylene Glycol 3350 [Miralax] 17 gm PO DAILY 11/10/16 Trazodone HCl 200 mg PO QHS 11/10/16 Aspirin E.C. [Ecotrin] 81 mg PO DAILY@0800 tablet 10/12/18 Carvedilol [Coreg (Beta Vikas)] 3.125 mg PO BID #60 tablet 10/12/18 Lisinopril [Zestril] 2.5 mg PO DAILY #30 tablet 10/12/18 Pravastatin [Pravachol] 40 mg PO QHS #30 tablet 10/12/18 Spironolactone [Aldactone] 12.5 mg PO DAILY #15 tablet 10/12/18 Ticagrelor [Brilinta] 90 mg PO BID #60 tablet 10/12/18 Following Prescrptions Were Given to Patient: Lisinopril [Zestril] 2.5 mg PO DAILY #30 tablet Pravastatin [Pravachol] 40 mg PO QHS #30 tablet Spironolactone [Aldactone] 12.5 mg PO DAILY #15 tablet Carvedilol [Coreg (Beta Vikas)] 3.125 mg PO BID #60 tablet Ticagrelor [Brilinta] 90 mg PO BID #60 tablet Primary Care Physician: Anup Quinones MD [Primary Care Provider] - Please follow up with your Primary Care Physician in: 5-7 days Please Follow Up With: Oskar Olsen MD When: 2 weeks Minutes spent on discharge:: 40 Patient Condition:: Stable Medical Necessity - Tobacco Use Smoking Status: Never smoker Tobacco Use: Non-smoker Meaningful Use Info Meaningful Use Diagnoses (Choose all that apply): AMI - AMI Aspirin given w/in 24hrs of arrival?: Yes ASA at discharge?: Yes Statins at discharge?: Yes Harpreet/ARB at discharge?: Yes Beta Vikas at discharge?: Yes Done w/ Acute OR measure.: Yes Code Visit Inpatient E&M: 55107 Disch Hosp
[2018-10-12 15:16] LABS: ANTINUCLEAR ANTIBODIES DIRECT Negative (Negative)
--- NOTE | 2018-10-13 14:55 | CASEMGMT ---
ZACHARY GEORGES Discharge Follow-Up Phone Call. Lace: 10 Strata: 3 Discharge Date: 10/12/18 Adm Dx: STEMI, Stents x 2 to LAD Attempted discharge follow-up phone call. No answer. Message left for pt to return call to SEEING EYE DOG TRAINERBeata SHARMA CM, if she would have any questions re: discharge instructions, medications, or follow-up appts. Phone number for Beata provided. Kaylene CLARK RN CM
== END 2018-10-12 15:17 | disposition home or self-care (01) | DRG 247 ==
LOC: ED 10:07 → ICU 10:10 → PCU 10-11 16:13
PROVIDERS: Internal Medicine Cardiovascular Disease; Admitting Provider Internal Medicine; Emergency Provider Emergency Medicine; Family Provider Family Medicine; PCP Family Medicine; Referring Provider Internal Medicine; Visit Provider Internal Medicine
DX: I21.02 ST elevation (STEMI) myocardial infarction involving left anterior descending coronary artery (principal); E87.1 Hypo-osmolality and hyponatremia; E78.5 Hyperlipidemia, unspecified; I25.10 Atherosclerotic heart disease of native coronary artery without angina pectoris; I25.5 Ischemic cardiomyopathy; E11.65 Type 2 diabetes mellitus with hyperglycemia; I12.9 Hypertensive chronic kidney disease with stage 1 through stage 4 chronic kidney disease, or unspecified chronic kidney disease; E11.22 Type 2 diabetes mellitus with diabetic chronic kidney disease; N18.3 Chronic kidney disease, stage 3 (moderate); R41.3 Other amnesia; M79.7 Fibromyalgia; F81.9 Developmental disorder of scholastic skills, unspecified; R92.8 Other abnormal and inconclusive findings on diagnostic imaging of breast; J45.909 Unspecified asthma, uncomplicated; Z82.49 Family history of ischemic heart disease and other diseases of the circulatory system; Z79.4 Long term (current) use of insulin; F32.9 Major depressive disorder, single episode, unspecified
CPT/HCPCS: 36415; 71045; 80048; 80053; 80061; 82140; 82607; 82962; 83036; 83735; 84100; 84443; 84484; 85025; 85027; 85347; 85610; 85730; 86038; 86225; 86235; 86431; 92941; 93005; 93306; 93458; 99152; 99153; 99284; J7030; J7040; A4216; C1725; C1769; C1874; C1887; C1894; C9606; J1327; J2405; Q9967

== ENCOUNTER 2018-10-15 10:21 | Emergency (ER) | payer MEDICARE, SELFPAY ==
[2018-10-10 11:44] VITALS: BMI 33.7
[2018-10-10 13:17] VITALS: BMI 35.9
[2018-10-15 10:22] VITALS: BP 124/95; PULSE 78; RESP 16; TEMP 36.6; O2SAT 95; BMI 35.1
--- NOTE | 2018-10-15 10:35 | RAD_ITS ---
STUDY: X-RAY CHEST REASON FOR EXAM: Female, 58 years old. Stent insertion on Wednesday, hypotension TECHNIQUE: AP COMPARISON: None. FINDINGS: EKG leads project over the chest. The lungs are clear but hyper expanded. There is no demonstrated pleural abnormality. Normal size heart. Normal mediastinum and oj. Normal visualized pulmonary arteries. Normal visualized aortic arch and descending thoracic aorta. Normal visualized thoracic spine. Normal visualized ribs, clavicles, and shoulders. There is no demonstrated abnormality of the visualized soft tissue structures of the upper abdomen. RAD/Chest 1 View (Portable) IMPRESSION: Stable, nonacute portable x-ray examination of the chest. Electronically Signed: Stephan Hooper MD at 11:36 EDT , Service support ,
--- NOTE | 2018-10-15 10:36 | EKG12_ITS ---
Test Reason : HYPOTENSION Blood Pressure : / mmHG Vent. Rate : 076 BPM Atrial Rate : 076 BPM P-R Int : 148 ms QRS Dur : 086 ms QT Int : 404 ms P-R-T Axes : 064 041 080 degrees QTc Int : 454 ms Normal sinus rhythm T wave abnormality, consider anterior ischemia Abnormal ECG Confirmed by MALLORIE MYERS, KATINA ([id number]), photography editor THIAGO RODRIGUEZ ([id number]) on 10/17/2018 4:16:56 PM Referred By: ELAINE Confirmed By:KATINA NOBLES MD
[2018-10-15] MEDS: 0.9% Normal Saline 1,000 ML 150 ML IV (10:42)
[2018-10-15 10:45] LABS: Absolute Lymphocyte Count 1.82 X10^3/ul (0.83-4.51); Absolute Neutrophil Count 3.4 X10^3/uL (2.0-7.7); Basophil# 0.03 X10^3/uL; Basophil% 0.5 % (0-1); Eosinophil# 0.27 X10^3/uL; Eosinophils% 4.6 % (0-5); Hemoglobin 13.9 g/dl (12.0-15.0); Lymphocyte # 1.82 X10^3/ul (4.0); Lymphocyte % 30.8 % (19-41); Mean Corp Hgb Conc 32.3 g/gl (32-36); Mean Corpuscular Hgb 27.7 pg (27.0-32.0); Mean Corpuscular Volume 85.8 fL (81-99); Mean Platelet Vol. 10.7 fl (6.2-12.0); Monocyte# 0.34 X10^3/uL; Monocyte% 5.8 % (0-10); Neutrophil # 3.43 X10^3/uL (2.7-7.7); Neutrophil % 58.1 % (47-70); Platelet Count 277 K/mm3 (150-450); RBC Distribution Width CV 13.5 % (11.6-14.6); Red Blood Count 5.01 M/mm3 (4.2-5.4); White Blood Count 5.9 K/mm3 (4.4-11.0)
[2018-10-15 10:46] VITALS: BP 101/72; BP 105/61; BP 126/74; PULSE 73; PULSE 74; PULSE 79
[2018-10-15 10:46] LABS: POSITIVE COUNT NO; POSITIVE DIFFERENTIAL NO; POSITIVE MORPHOLOGY NO
--- NOTE | 2018-10-15 10:48 | ED.VISSUMM ---
- ER Visit Summary Date of Service: 10/15/18 Chief Complaint: [Low blood pressure] History of Present Illness: The patient is a 58 F [presents the emergency department complaint of low blood pressure that started today. Patient states that around 5 AM she started not feeling well and just overall felt weak so he checked her blood pressure and it was 98/50. Patient felt minimally lightheaded. Patient later checked her blood pressure noted that it was 80/40. Patient had already taken her medications this morning. Patient tells me she had a heart attack 5 days ago and had 2 cardiac stents placed and she was started on several new medications including Coreg, Aldactone, and lisinopril. Patient denies any chest pain or shortness of breath. Patient describes a dull headache that she is had since her heart attack however she states that she is not been drinking her coffee like she had before and is now gone to decaffeinated coffee. She denies any falls or head injuries. She denies any fevers. She denies any significant cough. Patient denies blood in her stool or black tarry stool.] Physical Examination: [HEENT-PERRLA, EOMI. Cranial nerves II through XII grossly intact. TMs clear. Mucous membranes moist. No adenopathy. Cardiovascular-regular rate and rhythm without murmur or ectopy Lungs-clear to auscultation, chest wall stable without crepitus or subcu emphysema Abdomen-normoactive bowel sounds, soft, nontender, no rebound or rigidity, no peritoneal signs. Extremities-intact ?4, normal range of motion, normal pulses, atraumatic] Test Results: [EKG obtained on arrival shows sinus rhythm with a ventricular rate of 76 bpm with nonspecific flipped T waves noted in leads V1 through V6. Patient also with flipped T waves in 1 and aVL. These changes are new when compared with EKG from October 12. CBC with differential obtained showed a white count of 5.9, hemoglobin 14, hematocrit 43, platelets 277. Chemistries unremarkable. B1 was 20 g 0.97. Glucose was elevated to 95. Troponin was 0.516 and the troponin on 10/10 was 6.1. Chest x-ray showed nothing acute. Orthostatic vital signs were negative.] Emergency Department Course and Treatment: [Case was discussed with Dr. Tristan Roach was on for cardiology. I discussed the nonspecific ST changes on the current EKG and given the patient had an anterior MT it was felt that these changes may persist for several weeks and were not concerning as long as patient was not having anginal symptoms and she has not been. Patient was advised to discontinue her Spironolactone. Patient also has been having headache for the last 5 days and she rates about a 5 out of 10. She has not had any falls or head injuries. I did offer to obtain a CT scan of her brain given that she has had some blood thinners and has had this headache however she attributes her headache to the increased stress she has been under and the decreased caffeine. Patient does not want to have a scan of her head done she understands I cannot rule out an intracranial hemorrhage potentially without doing a scan.] Treatment Plan: [Patient to discontinue Spironolactone and keep her appointment with cardiology. Patient to follow-up with her primary care physician regarding the headaches within next 3 to 5 days or return if worsening headache, chest pain, shortness of breath, or condition should worsen anyway.] Disposition: Discharged home in stable condition] Impression: [Hypotension-transient, suspect related to medication. Headache-etiology uncertain] This note was generated with [employer] software. It may contain incorrect words, spelling, and punctuation that were not noted in review of the chart prior to signing ED Disposition - Plan for ED Patient: Referrals: Anup Quinones MD [Primary Care Provider] -
[2018-10-15 11:03] LABS: Anion Gap 5 (5-15); BUN 20 mg/dL (7-18); BUN/Creat Ratio 20.6 RATIO (10-20); Calcium,Total 8.9 mg/dL (8.5-10.1); Chloride 103 mmol/L (98-107); Creatinine, Serum 0.97 mg/dL (0.55-1.02); EST Glomerular Filtration Rate 62 mL/min (>60); Est Glom Filt Rate - Afr Amer 75 mL/min (>60); Estimated Creatinine Clearance 79.06 ml/min; Glucose 295 mg/dL (74-106); Potassium 4.1 mmol/L (3.5-5.1); Sodium Level 135 mmol/L (136-145)
--- NOTE | 2018-10-15 11:49 | ED.DEP ---
ED Disposition - Plan for ED Patient: Instructions: ED Cephalgia Unspecified, ED Hypotension All Causes Referrals: Anup Quinones MD [Primary Care Provider] - 3-5 Days Additional Instructions: discontinue your Spironolactone medication
[2018-10-15 12:01] VITALS: BP 97/62; PULSE 72; RESP 16
== END 2018-10-15 12:02 | disposition home or self-care (01) ==
PROVIDERS: Emergency Provider Emergency Medicine; Family Provider Family Medicine; PCP Family Medicine
DX: I95.9 Hypotension, unspecified (principal); R51 Headache; E11.9 Type 2 diabetes mellitus without complications; I25.10 Atherosclerotic heart disease of native coronary artery without angina pectoris; J45.909 Unspecified asthma, uncomplicated; F32.9 Major depressive disorder, single episode, unspecified; F41.9 Anxiety disorder, unspecified; I25.2 Old myocardial infarction; Z79.4 Long term (current) use of insulin
CPT/HCPCS: 71045; 80048; 84484; 85025; 93005; 96360; 99285; J7030; A4216

== ENCOUNTER 2018-10-25 10:31 | Emergency (ER) | payer MEDICARE, SELFPAY ==
[2018-10-10 13:17] VITALS: BMI 35.9
[2018-10-25 10:32] VITALS: BP 139/83; PULSE 71; RESP 16; TEMP 36.6; O2SAT 97; BMI 35.7
--- NOTE | 2018-10-25 10:39 | EKG12_ITS ---
Test Reason : CP Blood Pressure : / mmHG Vent. Rate : 070 BPM Atrial Rate : 070 BPM P-R Int : 142 ms QRS Dur : 086 ms QT Int : 420 ms P-R-T Axes : 058 048 120 degrees QTc Int : 453 ms Normal sinus rhythm T wave abnormality, consider anterolateral ischemia Abnormal ECG Confirmed by MALLORIE MYERS, KATINA ([id number]), editor in chief newspaper ALEJANDRINA BRYAN ([id number]) on 10/27/2018 12:49:52 PM Referred By: DORIS Confirmed By:KATINA NOBLES MD
--- NOTE | 2018-10-25 10:39 | RAD_ITS ---
STUDY: X-RAY CHEST REASON FOR EXAM: Female, 58 years old. Chest pain. TECHNIQUE: Single AP portable view of the chest. COMPARISON: Comparison is made with prior study dated October 15, 2018. FINDINGS: EKG electrodes are seen. The lungs are clear and expanded. There is no demonstrated pleural abnormality. Normal size heart. Normal mediastinum and oj. Normal visualized pulmonary arteries. Normal visualized aortic arch and descending thoracic aorta. There are diffuse degenerative changes of the visualized thoracic spine. Normal visualized ribs, clavicles, and shoulders. There is no demonstrated abnormality of the visualized soft tissue structures of the upper abdomen. RAD/Chest 1 View (Portable) IMPRESSION: No acute abnormality is seen. Electronically Signed: Jay Guzmán, at 11:24 EDT , Service support ,
--- NOTE | 2018-10-25 10:39 | VDLE_ITS ---
Reason For Study: LEG PAIN Procedure LEFT Exam performed portable in ED. GSV is normal. A preliminary report was called and/or faxed CFV is compressible, spontaneous, phasic, to Dr. Larson. competent, and demonstrates normal augmentation. FV is compressible, spontaneous, phasic, competent and demonstrates normal augmentation. POP V is compressible, spontaneous, phasic, competent and demonstrates normal augmentation. T/P Trunk is compressible. PTV is compressible. LT PerV is compressible. Interpretation Summary Deep veins of the left lower extremity are patent and compressible segmentally. There is no evidence of left lower extremity deep vein thrombosis. Valvular competence appears intact within the proximal deep venous system on the left . The left greater saphenous vein appears patent and compressible segmentally. Ordering Physician: Fred Larson Referring Physician: MD Stacie Anup Performed By: Mary Grace Pierre RVT
--- NOTE | 2018-10-25 10:45 | ED.VISSUMM ---
- ER Visit Summary Date of Service: 10/25/18 Chief Complaint: History of Present Illness: The patient is a 58 F chest pain presents to the emergency department chest pain. The patient recently had STEMI on October 12. She had a drug-eluting stent placed to her LAD. She was in the hospital for 2 days. She is been doing a lot of recovery. Today, at rest, she had chest tightness into her left shoulder with shortness of breath. States this feels very similar to the pain she had before with her prior stenting. She states it was not as severe. She does not have nitro at home. She denies any fevers or chills. She was nauseated with one episode of vomiting. She is been compliant with all of her medications. Physical Examination: Vital signs reviewed General: Well-nourished, well-developed Head: Normocephalic, atraumatic Eyes: Pupils equal and reactive, extraocular muscles intact Neck, supple, no lymphadenopathy Heart: Regular rate and rhythm Respiratory: No distress, clear bilaterally Abdomen: Soft, nontender, nondistended, no peritoneal signs Back: Nontender Extremities: Nontender, no edema, no cords Skin: Normal color no rash Neuro: Alert and oriented, no focal or lateralizing deficits Test Results: [] Emergency Department Course and Treatment: Patient presents to the emergency department chest pain. She is also complaining of some pain in her left ankle and felt like there was a bump there. There were no cords. Pulses are normal. I did obtain an ultrasound was negative. Her EKG does show T wave inversions across the anterior leads which I feel is progression from her LAD stenting. With the nitro, she is totally pain-free. Her initial cardiac enzymes are within normal limits. She is remained pain-free. X-ray is also unremarkable. I discussed the patient with Dr. Olsen. We are going to do a 3-hour repeat troponin. The patient second cardiac enzymes are normal. She is remained pain-free. We are going to start the patient on Imdur. She already has follow-up in place with Dr. Olsen tomorrow. Patient is comfortable with this plan of care. Treatment Plan: [] Disposition: Discharge Impression: 1. Chest pain This note was generated with [employer] [place] dictation software. It may contain incorrect words, spelling, and punctuation that were not noted in review of the chart prior to signing ED Disposition - Plan for ED Patient: Instructions: ED Chest Pain Atypical Unkn Cause Prescriptions: Isosorbide Mononitrate [Imdur] 30 mg PO DAILY #30 tab Referrals: Oskar Olsen MD [STAFF PHYSICIAN] -
[2018-10-25] MEDS: Aspirin 81 MG TAB.CHEW 324 MG PO (10:49)
[2018-10-25 10:51] VITALS: BP 129/76; PULSE 72
[2018-10-25 10:59] LABS: Absolute Lymphocyte Count 1.92 X10^3/ul (0.83-4.51); Absolute Neutrophil Count 4.1 X10^3/uL (2.0-7.7); Basophil# 0.03 X10^3/uL; Basophil% 0.5 % (0-1); Eosinophil# 0.21 X10^3/uL; Eosinophils% 3.2 % (0-5); Hematocrit 41.7 % (37-47); Hemoglobin 13.9 g/dl (12.0-15.0); Lymphocyte # 1.92 X10^3/ul (4.0); Mean Corp Hgb Conc 33.3 g/gl (32-36); Mean Corpuscular Hgb 28.1 pg (27.0-32.0); Mean Corpuscular Volume 84.2 fL (81-99); Mean Platelet Vol. 10.5 fl (6.2-12.0); Monocyte% 4.5 % (0-10); Neutrophil # 4.14 X10^3/uL (2.7-7.7); Neutrophil % 62.5 % (47-70); Platelet Count 299 K/mm3 (150-450); RBC Distribution Width CV 13.6 % (11.6-14.6); RBC Distribution Width SD 41.6 fl (35.1-43.9); Red Blood Count 4.95 M/mm3 (4.2-5.4); White Blood Count 6.6 K/mm3 (4.4-11.0)
[2018-10-25 11:01] LABS: POSITIVE COUNT NO; POSITIVE DIFFERENTIAL NO; POSITIVE MORPHOLOGY NO
[2018-10-25 11:08] LABS: Anion Gap 5 (5-15); BUN 14 mg/dL (7-18); BUN/Creat Ratio 16.1 RATIO (10-20); Calcium,Total 8.8 mg/dL (8.5-10.1); Chloride 104 mmol/L (98-107); Creatinine, Serum 0.87 mg/dL (0.55-1.02); EST Glomerular Filtration Rate 71 mL/min (>60); Est Glom Filt Rate - Afr Amer 86 mL/min (>60); Estimated Creatinine Clearance 88.26 ml/min; Glucose 278 mg/dL (74-106); Potassium 4.2 mmol/L (3.5-5.1); Sodium Level 136 mmol/L (136-145)
--- NOTE | 2018-10-25 11:22 | EKG12_ITS ---
Test Reason : REPEAT EKG Blood Pressure : / mmHG Vent. Rate : 067 BPM Atrial Rate : 067 BPM P-R Int : 140 ms QRS Dur : 090 ms QT Int : 434 ms P-R-T Axes : 042 028 113 degrees QTc Int : 458 ms Normal sinus rhythm T wave abnormality, consider anterolateral ischemia Abnormal ECG Confirmed by MALLORIE MYERS, KATINA ([id number]), publications editor ALEJANDRINA BRYAN ([id number]) on 10/27/2018 12:48:42 PM Referred By: DORIS Confirmed By:KATINA NOBLES MD
[2018-10-25 11:36] VITALS: BP 105/72; RESP 16; O2SAT 97
[2018-10-25 13:55] VITALS: BP 141/78; PULSE 71; RESP 16; O2SAT 98
== END 2018-10-25 13:55 | disposition home or self-care (01) ==
PROVIDERS: Emergency Provider Emergency Medicine; Family Provider Family Medicine; PCP Family Medicine
DX: R07.9 Chest pain, unspecified (principal); M25.572 Pain in left ankle and joints of left foot; I25.10 Atherosclerotic heart disease of native coronary artery without angina pectoris; I10 Essential (primary) hypertension; I25.2 Old myocardial infarction; Z95.5 Presence of coronary angioplasty implant and graft
CPT/HCPCS: 71045; 80048; 84484; 85025; 93005; 93971; 99285

== ENCOUNTER → 2018-10-26 10:51 | Outpatient (CLI) | payer MEDICARE, SELFPAY ==
[2018-10-10 13:17] VITALS: BMI 35.9
[2018-10-15 10:22] VITALS: BMI 35.1
[2018-10-25 10:32] VITALS: BMI 35.7
--- NOTE | 2018-10-26 | IMM_PTH ---
PATIENT: ANGEL ALMODOVAR LOC: [facility] U#:[id number] AGE/SX: 65/F ROOM: RE10/26/[address]: Dr. Doris Tobin MD : 1960 BED: DIS: SPEC #: [id number] RECD: 10/27/18 12:50 STATUS: [facility] REQ #: [id number] JOSE: 10/26/18 00:[address]: Doris Tobin DEPT: IMMUNOHISTOCHEMISTRY RECD BY: Genny Call ENTERED: 10/27/18 12:51 SP TYPE: IMMUNO OTHR DR: Dr. Anup Quinones MD Tissues: Left breast, NOS Procedures: SMA (add) CALPONIN-1 (add) CK5-6 (add) P53 (add) Pankeratin (initial) P40 (add) PHYSICIAN & INSTITUTION [place] [id number] SPECIMEN INFORMATION: Tissue Source: Left breast, stereotactic needle core biopsy Clinical Info: Left breast density upper posterior Specimen Number: [id number] #2 CPT code: 22960, 17463 x5 METHODOLOGY: Deparaffinized sections of prefer/formalin-fixed tissue or PAP/DQ stained slides are incubated with monoclonal/polyclonal antibodies/oligonucleotide probes. Localization is made via biotin free immunoperoxidase method. Appropriate controls are performed and reacted as expected. Results on target cell population are indicated in the following table: RESULTS: ANTIBODY / CLONE RESULT Block 2 AE1-3 (AE1/AE3/PCK26) positive Actin (1A4) positive P40 (BC28) positive Calponin-1 (KA485L) positive CK5-6 (D5 & 1684) positive, basal cells P53 (DO-7) positive, 28% dim These tests were developed and their performance characteristics determined by [facility]. They may not have been cleared or approved by the U.S. Food and Drug Administration. The FDA has determined that such clearance or approval is not necessary. INTERPRETATION: Left breast, stereotactic needle core biopsy: Fragments of atypical papillary neoplasm. 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 Clinical correlation is necessary.
--- NOTE | 2018-10-26 12:10 | BI_ITS ---
MAMMOGRAPHY - UNILATERAL DIAGNOSTIC: LEFT BREAST REASON FOR EXAM: Female, 58 years old. Follow-up examination for stereotactic left breast biopsy. PERTINENT HISTORY: Personal history of breast cancer. TECHNIQUE: Digital unilateral breast samira (3D mammographic acquisition) in the CC and MLO projections. 2-D mediolateral oblique (MLO) and craniocaudad (CC) views of both breasts were obtained. CAD: Full Field Digital Mammography with Computer Added Detection was performed. COMPARISON: Comparison is made with prior outside examination dated September 21, 2017. FINDINGS: Breast Composition: The breasts are heterogeneously dense, which may obscure small masses. The patient is status post lumpectomy in the slightly upper deep portion of the left breast with resultant of post operative scarring. A tissue clip marker is seen along the posterior aspect of the architectural distortion. Stable appearance of the left axial lymph node. There is a 5 mm well-defined nodule in the upper deep lateral aspect of the left breast. This may represent a small cyst. Correlation with ultrasound is recommended. No other significant abnormalities are identified. There has been no significant change since the prior study. BI/DIAG MAMM W/CAD, UNILAT IMPRESSION: Stable unilateral diagnostic mammogram. New 5 mm nodule in the deep upper lateral portion of the left breast. Correlation with ultrasound is recommended to rule out a cyst. ASSESSMENT CATEGORY: BIRADS Category 0: Incomplete. Need additional imaging evaluation. A letter regarding these results will be sent to the patient by the facility within 30 days. Approximately 10% of breast cancers are not detected by mammography. A normal mammogram should not delay biopsy of a clinically suspicious abnormality. Electronically Signed: Jay Guzmán, at 14:30 EDT , Service support ,
--- NOTE | 2018-10-26 12:45 | BRBX_PTH ---
PATIENT: ANGEL ALMODOVAR LOC: [facility] U#:[id number] AGE/SX: 65/F ROOM: RE10/26/[address]: Dr. Doris Tobin MD : 1960 BED: DIS: SPEC #: [id number] RECD: 10/26/18 13:13 STATUS: CULLEN REQ #: [id number] JOSE: 10/26/18 12:[address]: Doris Tobin DEPT: SURGICAL PATHOLOGY RECD BY: Kishore Lai ENTERED: 10/26/18 13:20 SP TYPE: BREAST BX OTHR DR: Dr. Anup Quinones MD Tissues: Left breast, NOS Procedures: Surgery Specimen Level IV HEADER OPERATION: Left breast stereotactic needle core biopsy PRE-OP DIAGNOSIS: 6 mm oval density left breast upper posterior breast TISSUE SUBMITTED: Left breast tissue ISCHEMIC TIME: 2 minutes FIXATION TIME: 4.5 hours MICROSCOPIC DIAGNOSIS Left breast, stereotactic core biopsy: Fragment of atypical papillary neoplasm. Fragments of focal intraductal hyperplasia without atypia. Mild fibrocystic change. See Comment. 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 Excision is recommended for definitive classification. Immunohistochemistry ([id number]) supports the above diagnosis. Case has been reviewed in consultation with Dr. Gray who concurs with the above diagnosis. CHRIS:LAYTON MICROSCOPIC DESCRIPTION Slides are reviewed. GROSS DESCRIPTION Received is one container labeled with the patient's name and not further designated. The specimen consists of multiple elongated fragments of rice-yellow fibroadipose tissue that in aggregate measure 5 x 3 x 0.3 cm. The entire specimen is submitted in three cassettes. / LAYTON:tony 10/26/18 TC:? CPT: 74878
--- NOTE | 2018-10-26 18:29 | PCM.OPRPT ---
Report of Operation Date of Procedure: 10/26/18 Pre-Operative Diagnosis: abnormal left breast mammograms Post-Operative Diagnosis: same Surgery/Procedure Performed:: left stereotactic breast biopsy Description of Surgical Findings:: nodular lesion of the slightly lateral central deep area of left breast Type of Anesthesia:: Local - 1% xylocaine Specimen's removed: left breast tissue Estimated Blood Loss (mL): < 2 ml Fluids Replaced: none Description of Procedure: After informed consent was given, the patient was brought into the breast biopsy suite. Appropriate time out protocol was followed. A left breast 3D mammogram was obtained to better localize the lesion. She was then placed in the prone position on the stereotactic biopsy table. This was reviewed by me for the procedure. The patient?s left breast was then placed at the opening at the head of the table. A manpower development advisor compression mammogram was then obtained in the lateral view. The suspicious radiological lesion was then identified. Stereo pictures of the lesion were then taken for XYZ coordinates. The Mammotome biopsy stylus was then positioned where it would be entering into the patient?s breast. The skin at this site was then cleansed with a surgical skin preparation. The skin and subcutaneous tissues at this site were then infiltrated with 1% xylocaine. A small skin incision was made with an 11 blade scalpel. The biopsy stylus was then positioned into the patient?s breast at the proper coordinates of depth. Using the Mammotome vacuum-assist device, several core samples of breast tissue were obtained. A hemostatic marker clip was then placed into the biopsy cavity and a manpower development advisor film revealed that it was properly deployed. The patient was then placed in the supine position and pressure was applied to the breast until no active bleeding was noted. Because the patient was on anticoagulants for her recent placement of coronary artery stents, the incision was reapproximated with 3-0 nylon suture. No active bleeding was noted. Opsite was applied to the area. A unilateral mammogram in the CC and MLO view were then taken which revealed that the marker clip was in the same area as the previous suspicious lesion. The patient tolerated the procedure well and was discharged from the breast biopsy suite in good condition. - Complications none noted
--- NOTE | 2018-10-26 18:33 | OP.PCM_ITS ---
Report of Operation Date of Procedure: 10/26/18 Pre-Operative Diagnosis: abnormal left breast mammograms Post-Operative Diagnosis: same Surgery/Procedure Performed:: left stereotactic breast biopsy Description of Surgical Findings:: nodular lesion of the slightly lateral central deep area of left breast Type of Anesthesia:: Local - 1% xylocaine Specimen's removed: left breast tissue Estimated Blood Loss (mL): < 2 ml Fluids Replaced: none Description of Procedure: After informed consent was given, the patient was brought into the breast biopsy suite. Appropriate time out protocol was followed. A left breast 3D mammogram was obtained to better localize the lesion. She was then placed in the prone position on the stereotactic biopsy table. This was reviewed by me for the procedure. The patient?s left breast was then placed at the opening at the head of the table. A irrigation system installer compression mammogram was then obtained in the lateral view. The suspicious radiological lesion was then identified. Stereo pictures of the lesion were then taken for XYZ coordinates. The Mammotome biopsy stylus was then positioned where it would be entering into the patient?s breast. The skin at this site was then cleansed with a surgical skin preparation. The skin and subcutaneous tissues at this site were then infiltrated with 1% xylocaine. A small skin incision was made with an 11 blade scalpel. The biopsy stylus was then positioned into the patient?s breast at the proper coordinates of depth. Using the Mammotome vacuum-assist device, several core samples of breast tissue were obtained. A hemostatic marker clip was then placed into the biopsy cavity and a irrigation system installer film revealed that it was properly deployed. The patient was then placed in the supine position and pressure was applied to the breast until no active bleeding was noted. Because the patient was on anticoagulants for her recent placement of coronary artery stents, the incision was reapproximated with 3-0 nylon suture. No active bleeding was noted. Opsite was applied to the area. A unilateral mammogram in the CC and MLO view were then taken which revealed that the marker clip was in the same area as the previous suspicious lesion. The patient tolerated the procedure well and was discharged from the breast biopsy suite in good condition. - Complications none noted
== END ==
PROVIDERS: Family Provider Family Medicine; PCP Family Medicine; Referring Provider Surgery; Visit Provider Surgery
DX: N62 Hypertrophy of breast (principal); N60.92 Unspecified benign mammary dysplasia of left breast; R92.8 Other abnormal and inconclusive findings on diagnostic imaging of breast; I25.10 Atherosclerotic heart disease of native coronary artery without angina pectoris; K21.9 Gastro-esophageal reflux disease without esophagitis; I25.2 Old myocardial infarction; F32.9 Major depressive disorder, single episode, unspecified; I10 Essential (primary) hypertension; E11.9 Type 2 diabetes mellitus without complications; E66.09 Other obesity due to excess calories; Z68.33 Body mass index [BMI] 33.0-33.9, adult; Z80.3 Family history of malignant neoplasm of breast
CPT/HCPCS: 19081; 77061; 77065; 88305; 88341; 88342; J7050; G0279

== ENCOUNTER → 2018-11-04 16:37 | Outpatient (CLI) | payer MEDICARE, SELFPAY ==
[2018-10-10 13:17] VITALS: BMI 35.9
[2018-10-25 10:32] VITALS: BMI 35.7
[2018-11-04 17:32] LABS: BNP,B-Type NATRIURETIC PEPTIDE 25.5 pg/mL (0-100)
== END ==
PROVIDERS: Family Provider Family Medicine; PCP Family Medicine; Referring Provider Internal Medicine Cardiovascular Disease; Visit Provider Internal Medicine Cardiovascular Disease
DX: I21.3 ST elevation (STEMI) myocardial infarction of unspecified site (principal); I25.5 Ischemic cardiomyopathy; I25.10 Atherosclerotic heart disease of native coronary artery without angina pectoris; I10 Essential (primary) hypertension; E78.5 Hyperlipidemia, unspecified; Z95.5 Presence of coronary angioplasty implant and graft
CPT/HCPCS: 36415; 83880

== ENCOUNTER 2018-11-04 17:24 | Emergency (ER) | payer MEDICARE, SELFPAY ==
[2018-10-10 13:17] VITALS: BMI 35.9
[2018-11-04 17:24] VITALS: BP 125/69; PULSE 83; RESP 16; TEMP 36.6; O2SAT 98; BMI 34.3
--- NOTE | 2018-11-04 17:38 | EKG12_ITS ---
Test Reason : SOB Blood Pressure : / mmHG Vent. Rate : 074 BPM Atrial Rate : 074 BPM P-R Int : 152 ms QRS Dur : 084 ms QT Int : 406 ms P-R-T Axes : 046 028 107 degrees QTc Int : 450 ms Normal sinus rhythm T wave abnormality, consider anterolateral ischemia Abnormal ECG Confirmed by MALLORIE MYERS, OSKAR ([id number]), fan mail editor ALEJANDRINA BRYAN ([id number]) on 11/07/2018 10:54:26 AM Referred By: Oskar Olsen Confirmed By:OSKAR OLSEN MD
--- NOTE | 2018-11-04 17:44 | ED.DCSUM_ITS ---
History of Present Illness Chief Complaint: Chest Other Detail of Chief Complaint: Dyspnea, orthopnea and chest discomfort Informant: Patient Onset: Today - Earlier this morning Context: Sudden Onset - Onset at rest Timing: Intermittent Quality: Tightness when she takes a deep breath Location: Thorax Current Severity: Mild Maximum Severity: Moderate Worsened by: Supine position Relieved by: Better when upright Associated Symptoms: As documented Narrative: Patient is a middle-aged woman who had a cardiac catheterization October 10 and placement of 2 stents presents because of tightness with breathing and dyspnea when supine and relieved to improved when upright. She had a BMP ordered as an outpatient. The BNP is 25.5. She states she had a lump on her left leg and ultrasound was performed. Ultrasound was negative for DVT. She reports night sweats last evening. She denies fever or chills. She denies ocular, visual or auditory symptoms. She denies GI or symptoms. She denies neurologic symptoms. Prior similar symptoms: No Recent Illness/Hospitalization: Yes - Past Medical History (1) Atherosclerosis of coronary artery of [place] heart without angina pectoris Status: Chronic Comment: PCI-LIZETTE-Mid LAD w/ 2.5 x 28 mm and 2.5 x 12 mm Synergy Stent 10/10/18 (2) Essential (primary) hypertension Status: Chronic (3) Hyperlipidemia Status: Chronic (4) Ischemic cardiomyopathy Status: Chronic (5) STEMI (ST elevation myocardial infarction) Status: Chronic Past Medical History - Allergies and Home Meds Allergies/Adverse Reactions: Allergies calcium carbonate [From Florical] Allergy (Verified 11/04/18 17:27) Swelling codeine Allergy (Verified 11/04/18 17:27) Swelling egg Allergy (Verified 11/04/18 17:27) Unknown fish derived Allergy (Verified 11/04/18 17:27) Unknown nitrofurantoin macrocrystalline [From Macrodantin] Allergy (Verified 11/04/18 17:27) Swelling oxycodone HCl [From Percocet] Allergy (Verified 11/04/18 17:27) Hives propoxyphene napsylate [From Darvocet-N 100] Allergy (Verified 11/04/18 17:27) Hives sodium fluoride [From Florical] Allergy (Verified 11/04/18 17:27) Swelling Sulfa (Sulfonamide Antibiotics) Allergy (Verified 11/04/18 17:27) Unknown Primary Care Physician: Anup Quinones MD [Primary Care Provider] - Prior records reviewed: Yes Surgical History: cholecystectomy, hysterectomy - CRIS/BSO for endometriosis and bleeding, - - ear surgery and eye surgery Lives: Spouse/ Significant Other Smoking Status: Never smoker Alcohol: None Drugs: None - Family History Maternal Family History: Family History (Last Updated 10/13/18 @ 11:53 by Cee Khan) Sister Heart disease Breast cancer Mother Heart disease Breast cancer Diabetes Father Heart disease Diabetes Family History: Reports: Cancer - Mother had breast cancer., Diabetes, Heart Disease Paternal Family History: Family History (Last Updated 10/13/18 @ 11:53 by Cee Khan) Sister Heart disease Breast cancer Mother Heart disease Breast cancer Diabetes Father Heart disease Diabetes Family History: Reports: Diabetes, Heart Disease Sibling Family History: Family History (Last Updated 10/13/18 @ 11:53 by Cee Khan) Sister Heart disease Breast cancer Mother Heart disease Breast cancer Diabetes Father Heart disease Diabetes Family History: Reports: Cancer - Breast cancer in her sister, Heart Disease Review of Systems General: Denies: Chills, Fever, Malaise, Subjective, Sweats - Night sweats at night last evening Eyes: Denies: Visual changes - bilaterally, Blurred Vision - bilaterally, Diplopia ENT: Denies: Rhinorrhea, Sore throat Cardiovascular: Reports: Chest pain Respiratory: Reports: Dyspnea, Orthopnea. Denies: Cough, Sputum, Dyspnea on exertion, Paroxysmal nocturnal dyspnea, -, - Gastrointestinal: Denies: Abdominal pain, Nausea, Vomiting, Diarrhea, Melena, Hematochezia Genitourinary: Denies: Dysuria, Hematuria, Frequency Musculoskeletal: Denies: Back pain, Extremity Pain Skin: Denies: Rash, Wounds Neurological: Denies: Headache, Weakness, Numbness Hematologic: Denies: Easy bruising, Easy bleeding Allergy: Denies: Uticaria Physical Exam Vital Signs/Narrative: Vital Signs Temp Pulse Resp BP Pulse Ox 11/04/18 17:24 98 F 83 16 125/69 H 98 Inital Vital Signs reviewed: Yes General: Well nourished, Well developed, Obese, No Acute Distress Head: Normocephalic, Atraumatic Eyes: Perrl, EOMI. Negative for: Pale conjunctiva, Scleral icterus ENT: Moist mucous membranes, No rhinorrhea, TM's clear Neck: Supple, Nontender, No lymphadenopathy, No JVD Cardiovascular: Regular rate, Regular rhythm, No murmurs, Normal S1, Normal S2 Respiratory: No distress, CTA bilaterally, Chest nontender Abdomen: Soft, Nontender, Nondistended, Normal bowel sounds, No masses Back: Nontender, Normal Inspection Extremities: Nontender, No edema, - - There is no asymmetry, swelling, discoloration, leg vein distention, palpable cords or tenderness along the distribution of the deep venous system. Neurological: Alert, Oriented x3, Cranial nerves II-XII grossly intact, Normal Strength, Normal Sensation Psychological: Normal Mood, - - Appears slightly anxious. Diagnostic/Tx/Re-eval Chest X-Ray - ED: 2 View, Read by ED Physician, Normal, Heart, Lungs, Mediastinum, Bony Structures, No Acute Disease Impressions Chest X-Ray 11/04/18 18:18 IMPRESSION: No radiographic evidence of acute cardiopulmonary disease. Electronically Signed: Diandra Amaral MD at 18:39 EDT , Service support , 11/04/18 18:18 Chest PA and Lateral [RAD] Stat Laboratory Results 11/04/18 11/04/18 17:45 17:45 WBC 6.5 RBC 4.74 Hgb 13.5 Hct 38.6 MCV 81.4 MCH 28.5 MCHC 35.0 RDW 13.6 RDW Differential 39.2 Plt Count 321 MPV 10.6 Immature Gran % (Auto) 0.200 Neut % (Auto) 55.5 Lymph % (Auto) 32.4 Rooks % (Auto) 7.0 Eos % (Auto) 4.4 Baso % (Auto) 0.5 Absolute Neuts (auto) 3.6 Absolute Lymphs (auto) 2.12 Total Counted Not Reportable Sodium 139 Potassium 3.7 Chloride 104 Carbon Dioxide 27.0 Anion Gap 8 BUN 18 Creatinine 0.72 Estim Creat Clear Calc 102.41 Est GFR (MDRD) Af Amer 107 Est GFR (MDRD) Non-Af 88 BUN/Creatinine Ratio 25.1 H Glucose 69 L Calcium 9.6 Troponin I < 0.015 - EKG Initial EKG Interpretation: Sinus Rhythm - Trickle rate 74. There is T wave abnormality in the anterolateral leads. This is unchanged from prior EKG performed on October 25, 2018. Prior: Unchanged - Medical Decision Making To evaluate patient's dyspnea will obtain chest x-ray to determine if there is a pneumothorax or infiltrate. CBC to evaluate H&H. Because she is reporting chest pressure will obtain troponin. EKG was obtained as well. Case was discussed with Dr. Olsen she has an appointment for Wednesday at 3 PM November 07. ED Disposition - Plan for ED Patient: Disposition: Home or Assisted Living Diagnosis: Chest pain, central, Dyspnea Instructions: ED Chest Pain NonCardiac, ED Dyspnea Shortness of Breath Referrals: Anup Quinones MD [Primary Care Provider] - Oskar Olsen MD [STAFF PHYSICIAN] - 11/07/18 3:00 pm
[2018-11-04 18:01] LABS: Absolute Lymphocyte Count 2.12 X10^3/ul (0.83-4.51); Absolute Neutrophil Count 3.6 X10^3/uL (2.0-7.7); Basophil# 0.03 X10^3/uL; Basophil% 0.5 % (0-1); Eosinophil# 0.29 X10^3/uL; Eosinophils% 4.4 % (0-5); Hematocrit 38.6 % (37-47); Hemoglobin 13.5 g/dl (12.0-15.0); Lymphocyte # 2.12 X10^3/ul (4.0); Lymphocyte % 32.4 % (19-41); Mean Corpuscular Hgb 28.5 pg (27.0-32.0); Mean Corpuscular Volume 81.4 fL (81-99); Mean Platelet Vol. 10.6 fl (6.2-12.0); Monocyte# 0.46 X10^3/uL; Neutrophil # 3.63 X10^3/uL (2.7-7.7); Neutrophil % 55.5 % (47-70); Platelet Count 321 K/mm3 (150-450); RBC Distribution Width CV 13.6 % (11.6-14.6); RBC Distribution Width SD 39.2 fl (35.1-43.9); Red Blood Count 4.74 M/mm3 (4.2-5.4); White Blood Count 6.5 K/mm3 (4.4-11.0)
[2018-11-04 18:04] LABS: POSITIVE COUNT NO; POSITIVE DIFFERENTIAL NO; POSITIVE MORPHOLOGY NO
[2018-11-04 18:08] VITALS: BP 121/73; PULSE 75; RESP 16; O2SAT 96
[2018-11-04 18:13] LABS: Anion Gap 8 (5-15); BUN 18 mg/dL (7-18); BUN/Creat Ratio 25.1 RATIO (10-20); Calcium,Total 9.6 mg/dL (8.5-10.1); Chloride 104 mmol/L (98-107); Creatinine, Serum 0.72 mg/dL (0.55-1.02); EST Glomerular Filtration Rate 88 mL/min (>60); Est Glom Filt Rate - Afr Amer 107 mL/min (>60); Estimated Creatinine Clearance 102.41 ml/min; Glucose 69 mg/dL (74-106); Potassium 3.7 mmol/L (3.5-5.1); Sodium Level 139 mmol/L (136-145)
--- NOTE | 2018-11-04 18:18 | RAD_ITS ---
STUDY: X-RAY CHEST REASON FOR EXAM: Female, 58 years old. Chest pain. Recent diagnosis of breast cancer. TECHNIQUE: PA and lateral views of the chest. COMPARISON: October 25, 2018. FINDINGS: Cardiac monitoring leads are present. The lungs are clear and hyperexpanded. There is no demonstrated pleural abnormality. Normal size heart. Normal mediastinum and oj. Normal visualized pulmonary arteries. Normal visualized aortic arch and descending thoracic aorta. There are diffuse degenerative changes of the visualized thoracic spine. Normal visualized ribs, clavicles, and shoulders. There is no demonstrated abnormality of the visualized soft tissue structures of the upper abdomen. RAD/Chest PA and Lateral IMPRESSION: No radiographic evidence of acute cardiopulmonary disease. Electronically Signed: Diandra Amaral MD at 18:39 EDT , Service support ,
[2018-11-04 20:05] VITALS: BP 107/71; PULSE 78; RESP 18; O2SAT 98
== END 2018-11-04 20:06 | disposition home or self-care (01) ==
PROVIDERS: Emergency Provider Emergency Medicine; Family Provider Family Medicine; PCP Family Medicine
DX: R07.89 Other chest pain (principal); R06.00 Dyspnea, unspecified; I25.10 Atherosclerotic heart disease of native coronary artery without angina pectoris; Z95.5 Presence of coronary angioplasty implant and graft; I10 Essential (primary) hypertension; E78.5 Hyperlipidemia, unspecified; I25.5 Ischemic cardiomyopathy; I25.2 Old myocardial infarction; Z79.899 Other long term (current) drug therapy; Z79.82 Long term (current) use of aspirin
CPT/HCPCS: 36415; 71046; 80048; 83880; 84484; 85025; 93005; 99284

== ENCOUNTER 2018-11-06 00:34 | Emergency (ER) | payer MEDICARE, SELFPAY ==
[2018-10-10 13:17] VITALS: BMI 35.9
[2018-11-06] VITALS (7 sets, daily range): BP systolic 100–119; BP diastolic 58–75; PULSE 61–77; RESP 14–26; TEMP 35.6–36.4; O2SAT 93–98; BMI 35.8
[2018-11-06 00:45] LABS: Bedside Glucose 77 mg/dL (70-110)
--- NOTE | 2018-11-06 01:04 | ED.VISSUMM ---
- ER Visit Summary Date of Service: 11/06/18 Chief Complaint: Hypoglycemia with mental status change History of Present Illness: The patient is a 58 F history of insulin-dependent diabetes, cardiomyopathy, recent [place], hypertension and history of cardiac stents. Patient took her insulin the night. Had a decreased mental status in which her found her confused. Called the squad her blood sugar was reportedly 30. They gave her glucose. She was brought in. She denies any headache or chest pain. She has had some recent nausea and vomiting the yesterday but that since resolved. Physical Examination: Middle-aged female. No acute distress. Vital signs are stable and afebrile. H EENT exam atraumatic. Pupils round reactive light. No facial droop. Normal speech. Neck nontender. Trachea midline. No lymphadenopathy. Lungs clear to auscultation bilaterally. Heart regular rate and rhythm no murmur. Rate about 60. Chest wall nontender. Abdomen soft and nontender. Normal bowel sounds no peritoneal signs. Patient is moving all 4 extremities. Neurovascular intact. Normal 5 out of 5 review coordinator strength. Normal dorsi plantar flexion. Neurologically she is awake. She is always Wednesday. She has no focal motor deficits. Test Results: CBC shows white count 11.3. Hemoglobin of 12. No bands. BMP shows potassium of 3.3. Normal gap. Glucose was 63. However she did eat peanut butter crackers and orange juice. Her most recent blood sugar was 108. EKG shows a sinus bradycardia rate of 58 with diffusely inverted T waves in aVL and V1 through V6. No change from prior EKG. Emergency Department Course and Treatment: Patient is doing well on initial exam. Screening labs to be obtained. She will be given something to eat. Repeat exam patient is doing well at 2:03 a.m. dorsal ambulator she does well she will be discharged with family. Treatment Plan: Watch blood sugars closely. Recheck it prior to going to sleep tonight. Disposition: Discharge Impression: Acute mental status change secondary to acute hypoglycemia History of CAD with cardiac stents and cardiomyopathy. History of insulin-dependent diabetes This note was generated with Hole 19ation software. It may contain incorrect words, spelling, and punctuation that were not noted in review of the chart prior to signing ED Disposition - Plan for ED Patient: Referrals: Anup Quinones MD [Primary Care Provider] -
--- NOTE | 2018-11-06 01:08 | ED.DCSUM_ITS ---
- ER Visit Summary Date of Service: 11/06/18 Chief Complaint: Hypoglycemia with mental status change History of Present Illness: The patient is a 58 F history of insulin-dependent diabetes, cardiomyopathy, recent [place], hypertension and history of cardiac stents. Patient took her insulin the night. Had a decreased mental status in which her found her confused. Called the squad her blood sugar was reportedly 30. They gave her glucose. She was brought in. She denies any headache or chest pain. She has had some recent nausea and vomiting the yesterday but that since resolved. Physical Examination: Middle-aged female. No acute distress. Vital signs are stable and afebrile. H EENT exam atraumatic. Pupils round reactive light. No facial droop. Normal speech. Neck nontender. Trachea midline. No lymphadenopathy. Lungs clear to auscultation bilaterally. Heart regular rate and rhythm no murmur. Rate about 60. Chest wall nontender. Abdomen soft and nontender. Normal bowel sounds no peritoneal signs. Patient is moving all 4 extremities. Neurovascular intact. Normal 5 out of 5 clay products glazer strength. Normal dorsi plantar flexion. Neurologically she is awake. She is always Wednesday. She has no focal motor deficits. Test Results: CBC shows white count 11.3. Hemoglobin of 12. No bands. BMP shows potassium of 3.3. Normal gap. Glucose was 63. However she did eat peanut butter crackers and orange juice. Her most recent blood sugar was 108. EKG shows a sinus bradycardia rate of 58 with diffusely inverted T waves in aVL and V1 through V6. No change from prior EKG. Emergency Department Course and Treatment: Patient is doing well on initial exam. Screening labs to be obtained. She will be given something to eat. Repeat exam patient is doing well at 2:03 a.m. dorsal ambulator she does well she will be discharged with family. Treatment Plan: Watch blood sugars closely. Recheck it prior to going to sleep tonight. Disposition: Discharge Impression: Acute mental status change secondary to acute hypoglycemia History of CAD with cardiac stents and cardiomyopathy. History of insulin-dependent diabetes This note was generated with [employer] software. It may contain incorrect words, spelling, and punctuation that were not noted in review of the chart prior to signing ED Disposition - Plan for ED Patient: Referrals: Anup Quinones MD [Primary Care Provider] -
[2018-11-06 01:23] LABS: Hematocrit 37.3 % (37-47); Hemoglobin 12.7 g/dl (12.0-15.0); Lymphocyte % 15.1 % (19-41); Mean Corpuscular Hgb 28.4 pg (27.0-32.0); Mean Corpuscular Volume 83.4 fL (81-99); Mean Platelet Vol. 10.1 fl (6.2-12.0); Monocyte% 5.1 % (0-10); Neutrophil % 77.2 % (47-70); POSITIVE COUNT NO; POSITIVE DIFFERENTIAL NO; POSITIVE MORPHOLOGY NO; Platelet Count 293 K/mm3 (150-450); RBC Distribution Width CV 13.7 % (11.6-14.6); RBC Distribution Width SD 41.5 fl (35.1-43.9); Red Blood Count 4.47 M/mm3 (4.2-5.4); White Blood Count 11.3 K/mm3 (4.4-11.0)
[2018-11-06 01:24] LABS: Absolute Neutrophil Count 8.7 X10^3/uL (2.0-7.7); Basophil# 0.02 X10^3/uL; Basophil% 0.2 % (0-1); Eosinophil# 0.26 X10^3/uL; Eosinophils% 2.3 % (0-5); Monocyte# 0.57 X10^3/uL; Neutrophil # 8.69 X10^3/uL (2.7-7.7)
[2018-11-06 01:51] LABS: Anion Gap 6 (5-15); BUN 19 mg/dL (7-18); BUN/Creat Ratio 25.7 RATIO (10-20); Calcium,Total 8.5 mg/dL (8.5-10.1); Chloride 107 mmol/L (98-107); Creatinine, Serum 0.74 mg/dL (0.55-1.02); EST Glomerular Filtration Rate 85 mL/min (>60); Est Glom Filt Rate - Afr Amer 103 mL/min (>60); Estimated Creatinine Clearance 104.02 ml/min; Glucose 63 mg/dL (74-106); Potassium 3.3 mmol/L (3.5-5.1); Sodium Level 140 mmol/L (136-145)
[2018-11-06 02:00] LABS: Bedside Glucose 108 mg/dL (70-110)
--- NOTE | 2018-11-06 02:11 | ED.DEP ---
ED Disposition - Plan for ED Patient: Disposition: Home or Assisted Living Instructions: ED Diabetes Hypoglycemia Insulin React Referrals: Anup Quinones MD [Primary Care Provider] - 3-5 Days if not improving Additional Instructions: Recheck your blood sugar prior to going to sleep tonight. Watch your blood sugars closely next several days.
--- NOTE | 2018-11-06 02:13 | CT_ITS ---
HISTORY: low blood sugar and became unresponsive/lethargic,alert nowhx:diabetes,htn,breast cancer EXAMINATION: CT Head or Brain W/O Contrast TECHNIQUE: Multiple axial images were obtained of the brain without intravenous contrast. A radiation dose optimization technique was used for this scan. IV Contrast dosage and agent: None. COMPARISON: 06/16/07 CT brain FINDINGS: PARANASAL SINUSES AND MASTOID AIR CELLS: Clear. INTRACRANIAL HEMORRHAGE: None. BRAIN PARENCHYMA: No CT evidence of acute infarct. No intracranial mass or mass effect. There is preservation of the cheatham/white matter interface. Posterior fossa structures are unremarkable. CSF SPACES: Appropriate for age. There is no hydrocephalus. Basal cisterns are patent. CALVARIUM and SKULL BASE: No discrete lytic or blastic abnormalities observed. ORBITS: Both globes, extraocular muscles, optic nerves and retrobulbar fat appear unremarkable. ASPECTS Score for Acute Strokes: 10 CT/Brain/Head without Contrast IMPRESSION: Negative Brain CT without contrast. Individualized dose optimization techniques were used for this CT. at 0327 Reported and signed by: Reji Hammer MD Electronically Signed: Reji Hammer, at 3:25 EDT Tel , Service support ,
--- NOTE | 2018-11-06 02:17 | ED.RN ---
THIS RN AND ZACHARY GARCIA AMBULATED THE PT 5 STEPS AND HAD TO RETURN THE PT TO BED BECAUSE SHE STATED SHE WAS VERY DIZZY. PT WAS VERY WOBBLY.
--- NOTE | 2018-11-06 02:51 | EKG12_ITS ---
Test Reason : ALT LOC Blood Pressure : / mmHG Vent. Rate : 058 BPM Atrial Rate : 058 BPM P-R Int : 156 ms QRS Dur : 090 ms QT Int : 502 ms P-R-T Axes : 045 031 099 degrees QTc Int : [address] & T wave abnormality, consider anterolateral ischemia Prolonged QT Abnormal ECG Confirmed by MALLORIE MYERS, OSKAR ([id number]), art editor ALEJANDRINA BRYAN ([id number]) on 11/08/2018 7:54:55 AM Referred By: Oskar Olsen Confirmed By:OSKAR OLSEN MD
[2018-11-06 03:11] LABS: Bedside Glucose 190 mg/dL (70-110)
== END 2018-11-06 03:48 | disposition home or self-care (01) ==
PROVIDERS: Emergency Provider Emergency Medicine; Family Provider Family Medicine; PCP Family Medicine
DX: E11.649 Type 2 diabetes mellitus with hypoglycemia without coma (principal); I25.10 Atherosclerotic heart disease of native coronary artery without angina pectoris; I42.9 Cardiomyopathy, unspecified; I25.2 Old myocardial infarction; I10 Essential (primary) hypertension; Z95.5 Presence of coronary angioplasty implant and graft; Z79.4 Long term (current) use of insulin; Z79.82 Long term (current) use of aspirin; Z79.899 Other long term (current) drug therapy
CPT/HCPCS: 36415; 70450; 80048; 82962; 85025; 93005; 99284; A4216; J2405

== ENCOUNTER → 2018-11-23 12:46 | Outpatient (CLI) | payer MEDICARE, SELFPAY ==
[2018-10-10 13:17] VITALS: BMI 35.9
[2018-11-07 12:38] VITALS: BMI 36.1
--- NOTE | 2018-11-23 12:58 | CR.HP_ITS ---
CR - History & Physical - General Arrival date:: 11/23/18 Arrival time:: 12:54 Date of Referral:: 11/23/18 Date of CR Evaluation:: 11/23/18 Referring Physician: Dr. Oskar Olsen Primary Diagnosis: PCI with stenting - History of Present Cardiac Event Onset Date: Enter Onset Date of cardiac illnesses in Comment field below Current stable Angina Pectoris:: No Acute Myocardial Infarction within 12 months:: Yes Coronary Artery Bypass Graft:: No Heart valve replacement or repair:: No PTCA or coronary stenting:: Yes Heart or Heart-Lung Transplant:: No Heart Failure EF <35%:: No Interventions with present event:: 10/10/18 - Medications Home Medications: Ambulatory Orders Medication Instructions Recorded Albuterol Inhaler [Ventolin Hfa] 2 puff INHALATION Q6H PRN PRN 11/10/16 Citalopram Hydrobromide [Celexa] 20 mg PO DAILY 11/10/16 Fluticasone/Salmeterol [Advair 1 puff INHALATION BID 11/10/16 250/50 Mcg Diskus] Insulin NPH Human Isophane 15 unit SQ BID 11/10/16 [Humulin N] Insulin Regular, Human [Humulin R] 14 unit SC TID 11/10/16 Polyethylene Glycol 3350 [Miralax] 17 gm PO DAILY PRN 11/10/16 Trazodone HCl 200 mg PO QHS 11/10/16 Aspirin E.C. [Ecotrin] 81 mg PO DAILY@0800 tablet 10/12/18 carvedilol 3.125 mg tablet 3.125 mg PO BID #60 tab 11/07/18 isosorbide mononitrate ER 60 mg 60 mg PO DAILY #30 tab 11/07/18 tablet,extended release 24 hr lisinopril 2.5 mg tablet 2.5 mg PO DAILY #30 tab 11/07/18 pravastatin 40 mg tablet 40 mg PO QHS #30 tab 11/07/18 ticagrelor 90 mg tablet 90 mg PO BID #60 tab 11/07/18 - Allergies Allergies/Adverse Reactions: Allergies calcium carbonate [From Florical] Allergy (Verified 11/16/18 14:02) Swelling codeine Allergy (Verified 11/16/18 14:02) Swelling egg Allergy (Verified 11/16/18 14:02) Unknown fish derived Allergy (Verified 11/16/18 14:02) Unknown nitrofurantoin macrocrystalline [From Macrodantin] Allergy (Verified 11/16/18 14:02) Swelling oxycodone HCl [From Percocet] Allergy (Verified 11/16/18 14:02) Hives propoxyphene napsylate [From Darvocet-N 100] Allergy (Verified 11/16/18 14:02) Hives sodium fluoride [From Florical] Allergy (Verified 11/16/18 14:02) Swelling Sulfa (Sulfonamide Antibiotics) Allergy (Verified 11/16/18 14:02) Unknown - Sleep Disorder Evaluation Hx of Sleep Apnea: No Do you snore loudly (louder than talking or can be heard through closed doors)?: Yes - decline for now Do you often feel tired/ fatigued/ sleepy during daytime?: No Has anyone observed you stop breathing during sleep?: No History of Hypertension (for STOP score): Yes STOP Results: Positive Advanced Directives - Advanced Directives Power of [employer] Consultant: Yes Living Will: Yes Advance Directives Information Provided: Yes Advance Directives on File: No DNR Order?:: No Past Medical History - Past Medical Illness Medical History: Past Medical History (Last Reviewed 11/07/18 @ 14:53 by Oskar Olsen MD) Breast cancer, left breast (Acute) C50.912 Ischemic cardiomyopathy (Chronic) I25.5 Atherosclerosis of coronary artery of [place] heart without angina pectoris (Chronic) I25.10 PCI-LIZETTE-Mid LAD w/ 2.5 x 28 mm and 2.5 x 12 mm Synergy Stent 10/10/18 Essential (primary) hypertension (Chronic) I10 Hyperlipidemia (Chronic) E78.5 STEMI (ST elevation myocardial infarction) (Chronic) Onset Date: 10/10/18 I21.3 Abnormal mammogram R92.8 Recent abnormal mammogram-scheduled for breast biopsy later this month 10/18 Asthma J45.909 Chronic kidney disease, stage 3 N18.3 Depression F32.9 Fibromyalgia M79.7 Hyponatremia E87.1 Learning disabilities F81.9 Memory loss R41.3 Obesity E66.9 Rheumatoid arthritis M06.9 Type 2 diabetes mellitus E11.9 - Past Surgical History Surgical History: Past Surgical History (Last Reviewed 11/07/18 @ 14:53 by Oskar Olsen MD) History of coronary artery stent placement (Resolved) Onset Date: 10/10/18 Z95.5 PCI-LIZETTE-Mid LAD w/ 2.5 x 28 mm and 2.5 x 12 mm Synergy Stent 10/10/18 History of hysterectomy Z90.710 Hx of cholecystectomy Z90.49 Surgical History: cholecystectomy, hysterectomy - CRIS/BSO for endometriosis and bleeding, - - ear surgery and eye surgery - Family History Summary Family History: Family History (Last Reviewed 11/07/18 @ 14:53 by Oskar Olsen MD) Sister Heart disease Breast cancer Mother Heart disease Breast cancer Diabetes Father Heart disease Diabetes Social History - Smoking History Smoking Status: Never smoker - Alcohol Use Alcohol Usage: No - Substance Abuse Hx Substance Use: No - Occupation Occupation (List type of work in comments):: Retired - Hobbies, Recreation, Social Activities Hobbies: Walking, Exercise Recreational Activities: I am able to engage in a few activities Social Environment - Status Marital Status: - Current Living Arrangements Living Environment:: Spouse - Children How many children do you have?: 1 Do any of your children live nearby?: Yes - Safety Do you feel safe in your surroundings?: Yes - Assistance Do you need any assistance at home?: none Review of Systems - Review of Systems Hints: Right click = Denies ([place]ash). Left click = Reports ([place]) Review of Present Symptoms: Reports: Shortness of Breath at Rest, Shortness of Breath with Exertion, Dizziness/Lightheadedness, Fatigue, Appetite - Normal, Sleep - Normal. Denies: PVD, Operative Discomfort, Angina, Wound Healing, Heart Arrhythmia/Irregularities, Appetite - Special Diet, Sexual Changes - Pain Is Patient Pain Free?: Yes Risk Factor Assessment - Vital Signs Pulse Ox: 95 - Pulse Pulse Rate: 80 Pulse Rhythm: Regular - Hypertension Blood Pressure Sitting - Left Arm: 110/60 - Stress Stress: Long-standing - Diabetes Diabetic History: Type II Nutrition Referral for Diabetes: Yes - Obesity Height: 1.5 m Weight:: 81.193 kg Weight in Pounds: 179.0 lbs Body Mass Index (BMI): 36.1 Nutritional Referral for Obesity: No - DMII - Physical Inactivity Physical Inactivity: Recreational activity - Risk Stratification Risk Guidelines: Lowest Risk: Risk Factor for Smoking, Moderate Risk: Risk Factor for Dyslipidemia, Risk Factor for Sedentary Lifestyle, Highest Risk: Risk Factor for Diabetes, Risk Factor for Obesity, Risk Factor for Hypertension, Risk Factor for Depression - For Smoking Smoking Risk Guidelines: Smoking Low Risk: None or quit greater than 6 months ago. Smoking Moderate Risk: Smoker or quit 6 months or less ago. Smoking High Risk: Smoker - For Dyslipidemia Dyslipidemia Risk Guidelines: Low Risk: Moderate Risk: High Risk: 15-25% fat 25.1-29% fat >/= 30% fat. <7% sat fat 7-9% sat fat >9% sat fat. <150 mg chol 150-299 mg chol >/= 300 mg chol. LDL <100 LDL 100-129 LDL >/= 130. Chol/HDL ratio <5.0 Chol/HDL ratio 5.0-6.0 Chol/HDL ratio >6.0. Triglycerides <100 Triglycerides 100-149 Triglycerides >/= 150 - For Diabetes Mellitus Diabetes Risk Guidelines: Diabetes Low Risk: HgA1c <6.5% and/or FBG <120. Diabetes Moderate Risk: HgA1c 6.6-7.9% and/or FBG 120-180. Diabetes High Risk: HgA1c >/= 8% and/or FBG >180 - For Obesity/Overweight Obesity/Overweight Risk Guidelines: Obesity Low Risk: BMI <25.0. Obesity Moderate Risk: BMI 25-29.9. Obesity High Risk: BMI >/= 30.0 - For Hypertension Hypertension Risk Guidelines: Hypertension Low Risk: Systolic <120 and Diastolic <80. Hypertension Moderate Risk: Systolic 120-139 and Diastolic 80-89. Hypertension High Risk: Systolic >/= 140 and Diastolic >/= 90 - For Sedentary Lifestyle Sedentary Lifestyle Risk Guidelines: Sedentary Lifestyle Low Risk: >/= 1,500 kcal/week. Sedentary Lifestyle Moderate Risk: 700-1,499 kcal/week. Sedentary Lifestyle High Risk: < 700 kcal/week - For Depression Depression Risk Guidelines: Depression Low Risk: Not clinically depressed. Depression Moderate Risk: Mildly depressed. Depression High Risk: Clinically depressed - Family History Family History: Family History (Last Reviewed 11/07/18 @ 14:53 by Oskar Olsen MD) Sister Heart disease Breast cancer Mother Heart disease Breast cancer Diabetes Father Heart disease Diabetes Motivation - Motivation to Participate On a scale of 1 to 10, how prepared are you to commit to attending program?: 10 What do you see as barriers to successfully being able to complete the program?: anxiety What do you see as the benefits of succesfully completing the program? In other words, what do you hope to get out of participating in the program?: knowledge Are there issues you are dealing with that will interfere with completing the program?: none Do you have a spouse or signficant other, family or friends who will help support you to complete the program?: spouse
--- NOTE | 2018-11-23 13:02 | CR.ITP_ITS ---
General Information - General Information Admitting Diagnosis: PCI with stent - Education/Goals Barriers to Learning: None Cardiac Rehabilitation Goals: 1. Maintain the individual as the primary focus of care. 2. To improve the patient's quality of life. 3. Identification of cardiac risk factors and provide cardiac risk factor management. 4. Enhance the psychosocial status of the patient. 5. Reconditioning enough to allow the patient to resume customary activities. 6. Control symptoms of cardiac disease Scale for measuring improvement of personal goals: Enter appropriate number in Comments. 2 = Unchanged. 3 = Slightly Better. 4 = Moderate Improvement. 5 = Met my Goal Personal Goals: Initial Assessment: Improve management of stress and emotions, Improve energy level, Improve knowledge of cardiac disease, Improve muscle strength and endurance, Improve diet and eating habits (eat healthier), Control risk factors (learn risk factor modification) Exercise - Initial Assessment - Visit Date of Eval: 11/23/18 - initial eval - Stages of Change Stages of Change:: Contemplate - Physician Prescribed Exercise Modalities: Treadmill, Biodyne, Rower, Airdyne, NuStep, SciFit Frequency (days/week): 3x/week for 12 weeks [36 sessions] Duration (Minutes):: 30-45 Intensity: 60-80% age predicted maximum heart rate reserve METs - Progression: 0.5-1.0 MET, RPE 11-14 WEEK: 2.5 Target Heart Rate:: 97-113 - Hypertension Do any of the following apply?: Yes - Intervention Home Exercise/Activity Goal:: Sitting Time <3 hrs/day - Education Goals:: Warm-up, RPE OLIVIA Scale, S/S, Safe Exercise, Self-Monitoring - Exercise Program Goals Exercise Program Goals: Aerobic Activity >30 min, B/P <130/80 Nutrition - Initial Assessment - Program Goals Nutrition Program Goals: LDL <70. Total Cholesterol <200. HDL >45. Triglycerides <150. HgbA1C <7%. BMI <25 - Visit Date of Assessment:: 11/23/18 - Stages of Change Stages of Change:: Action - Diabetes Diabetes:: Yes Non-Insulin Dependent?: Yes Do you monitor your blood sugar at home?: Yes - Weight Management Height: 1.5 m Weight:: 81.193 kg Total Score:: 4 - Intervention Referral to dietitian:: No Referral to Diabetic Clinic:: No Will attend diet classes:: Yes - Education Gave educational materials for:: Signs & symptoms of hypoglycemia, Signs & symptoms of hyperglycemia, Relate diabetes to coronary artery disease, Healthy eating Tobacco - Initial Assessment - Program Goals Tobacco Program Goals: Complete smoking cessation. Attend education classes. Improve Knowledge Test score - Stage of Change Stages of Change:: Contemplate - Learning Barriers Total Score:: 17 - Family Support Do you have family support?: Yes - Tobacco Use Tobacco Use: Non-smoker Do you use smokeless tobacco?: No - Intervention Smoking Cessation Referral:: No Individual Education/Counseling:: No Education Schedule Given:: Yes - Education Gave educational material for:: Tobacco triggers, Coronary artery disease, Risk factors, Sexuality, Medical compliance, Cardiac A&P, Angina signs & symptoms Psychosocial - Initial Assess - Target Goals Target Goals: Assess presence or absence of depression. Using a valid screening tool, maximizes coping skills. Positive support system - Stages of Change Stages of Change:: Action - Psychosocial Test Tool Used:: HANDS Depression Questionnaire Total Mood Screening Score:: 9 Self-Efficacy Score:: 2 - Intervention PS - Interventions: Yes Attend Stress Management Classes, Yes Uses Stress Management Skills, No Referral to Mental Health, No Referral to [facility] Case Management, No Referral to Physician - Education Gave educational materials for:: Coping techniques, Signs & symptoms of depression, Stress management, Relaxation techniques - Assistive Devices Assistive Devices:: None Fall Risk Assessed:: Yes Patient Health Questionnaire Initial Assessment 1. Little interest or pleasure in doing things: More than half the days 2. Feeling down, depressed, or hopeless: More than half the days 3. Trouble falling or staying asleep, or sleeping too much: Not at all 4. Feeling tired or having little energy: More than half the days 5. Poor appetite or overeating: Not at all 6. Feeling bad about yourself -- or that you are a failure or have let yourself or your family down: More than half the days 7. Trouble concentrating on things, such as reading the newspaper or watching television: Several days 8. Moving or speaking so slowly that other people could have noticed. Or the opposite - being so fidgety or restless that you have been moving around a lot more than usual: Not at all 9. Thoughts that you would be better off , or of hurting yourself in some way: Not at all How difficult have these problems made it for you to do your work, take care of things at home, or get along with other people?: Somewhat difficult Total Score: 9 WOODY-Q SV Test - Statements CAD is a disease of the arteries in the heart: True Examples of risk factors for heart disease: True Angina is chest pain or discomfort: True The benefits of resistance training include: True Eating more meat and dairy products: False Anti-platelet medications such as aspirin are important: True The only effective way to manage stress: True An exercise warm-up slowly increases heart rate: True Prepared, processed foods usually have high sodium: True Depression is common after a heart attack: True The statin medications lower cholesterol: True To control blood pressure, lower the amount of sodium: True If someone gets chest discomfort during walking: False Transfats are partially hydrogenated vegetable oils: True Sleep apnea that is not treated increases the risk: False To control cholesterol, one should become a vegetarian: False Someone knows if he/she is exercising at the right level: I Don't Know Diabetes cannot be prevented with exercise & health eating: False Stress is a large risk for heart attack: True A diet that can help lower blood pressure is rich in: True - Total Score Total Correct Responses: 17 Self-Efficacy Initial Assessment We would like to know how confident you are in doing certain activities. Please select your confidence level for:: Select your confidence level for the following using the scale 1-10 where 1 is not at all confident and 10 is totally confident. Your score is the average of all 6 responses. Fatigue: How confident are you that you can keep the fatigue caused by your disease from interfering with the things you want to do? Select Number: 3 Physical Discomfort or Pain: How confident are you that you can keep the physical discomfort or pain of your disease from interfering with the things you want to do? Select Number: 2 Emotional Distress: How confident are you that you can keep the emotional distress caused by your disease from interfering with the things you want to do? Select Number: 4 Other Symptoms or Health Problems: How confident are you that you can keep other symptoms or health problems from interfering with the things you want to do? Select Number: 2 Different Tasks and Activities: How confident are you that you can do the di fferent tasks and activities needed to manage your health condition so as to reduce your need to see a doctor? Select Number: 4 Medication: How confident are you that you can do things other than just taking medication to reduce how much your illness affects your everyday life? Select Number: 2 Total Score:: 2 Nutrition Survey - Nutrition Survey Instructions Scoring Instructions: Scoring is as follows: Yes = 1 points. No = 0 point. Patient score that is >/=12 is considered to be at potential nutritional risk and could benefit from a referral to a registered dietitian. - Nutrition Survey Initial Have you lost >10 lbs over the past 2 months without trying?: No Are you following a special diet at home for diabetes, low fat, or low salt?: Yes Are you interested in meeting with a dietitian for help understanding your diet?: Yes Do you eat less than 3 meals a day?: Yes Do you eat fatty meats (allison, sausage, ribs, etc), fried foods, desserts, large amounts of salad dressings, margarine, butter, or cheese most days?: No Do you have food allergies? [Enter types in comment field]: Yes Do you eat in restaurants more than 3 times a week?: No Do you season food with salt, seasoning salt, or garlic salt?: No Do you used canned, boxed, frozen meals, or soups, seasoning packets?: No Total Score:: 4
[2018-11-23 14:00] VITALS: BP 110/60; PULSE 80; O2SAT 95; BMI 36.1
== END ==
PROVIDERS: Family Provider Family Medicine; PCP Family Medicine; Referring Provider Internal Medicine Cardiovascular Disease; Visit Provider Internal Medicine Cardiovascular Disease
DX: Z95.5 Presence of coronary angioplasty implant and graft (principal)

== ENCOUNTER 2018-11-28 13:00 | Outpatient (RCR) | payer MEDICARE, SELFPAY ==
[2018-10-10 13:17] VITALS: BMI 35.9
[2018-11-23 14:00] VITALS: BMI 36.1
== END 2018-11-29 23:59 ==
LOC: CR 13:00
PROVIDERS: Family Provider Family Medicine; PCP Family Medicine; Referring Provider Internal Medicine Cardiovascular Disease; Visit Provider Internal Medicine Cardiovascular Disease
DX: I25.5 Ischemic cardiomyopathy (principal); I25.10 Atherosclerotic heart disease of native coronary artery without angina pectoris; I10 Essential (primary) hypertension; E78.5 Hyperlipidemia, unspecified; I21.3 ST elevation (STEMI) myocardial infarction of unspecified site; Z95.5 Presence of coronary angioplasty implant and graft
CPT/HCPCS: 93798

== ENCOUNTER 2018-11-30 10:33 | Outpatient (RCR) | payer MEDICARE, SELFPAY ==
[2018-10-10 13:17] VITALS: BMI 35.9
[2018-11-23 14:00] VITALS: BMI 36.1
== END 2018-12-30 23:59 ==
LOC: DC 10:33
PROVIDERS: Family Provider Family Medicine; PCP Family Medicine; Visit Provider Internal Medicine Cardiovascular Disease
DX: E11.9 Type 2 diabetes mellitus without complications (principal); I12.9 Hypertensive chronic kidney disease with stage 1 through stage 4 chronic kidney disease, or unspecified chronic kidney disease; N18.3 Chronic kidney disease, stage 3 (moderate); Z71.3 Dietary counseling and surveillance; I25.5 Ischemic cardiomyopathy; I25.10 Atherosclerotic heart disease of native coronary artery without angina pectoris; E78.5 Hyperlipidemia, unspecified; I21.3 ST elevation (STEMI) myocardial infarction of unspecified site; Z95.5 Presence of coronary angioplasty implant and graft
CPT/HCPCS: 93798; G0108

== ENCOUNTER 2018-12-05 10:50 | Day surgery (SDC) | payer MEDICARE, SELFPAY ==
[2018-10-10 13:17] VITALS: BMI 35.9
[2018-11-07 12:38] VITALS: BMI 36.1
[2018-11-23 14:00] VITALS: BMI 36.1
--- NOTE | 2018-12-03 14:45 | PCM.HP.BLA ---
History and Physical Date of Admission: 12/05/18 Berna Reich 1960 ? ? REFERRING PHYSICIAN: Charbel Stone ([facility]), APR* ? CHIEF COMPLAINT: Consult (Consult Breast lump) ? HPI: The patient is a 58 year old female presents with abnormal left breast mammograms. Nothing that correlates with this lesion seen on left breast ultrasound. Previous excisional left breast biopsy done by Dr. Rollins for atypical ductal hyperplasia done in 2005. Had previous needle core breast biopsy in 1998. She recently had a NSTEMI with coronary artery stents placed and is on aspirin and Brilinta. She has been followed by Dr. Olsen She denies palpable breast masses. Denies nipple discharge. Denies breast pain. Mother had breast cancer diagnosed in her 40s. Sister had bilateral breast cancer diagnosed in her 30s and also ovarian cancer. Another sister had ovarian cancer. Mother's mother and father's mother had breast cancer. Other second degree relatives with breast cancer. No known testing for BRCA in the family. ? ? Pathology from left stereotactic breast biopsy done at [facility] [place] on 10/26/18 Had developed postoperative hematoma Pathology reveals: Fragment of atypical papillary neoplasm. Fragments of focal intraductal hyperplasia without atypia. Mild fibrocystic change. An encapsulated papillary carcinoma cannot be excluded. Excision is recommended for definitive classification. ? ? PAST MEDICAL HISTORY ? Asthma ? ? CAD (coronary artery disease) 09/2018? 70% occlusion of the distal left circumflex, 60% occlusion of the right RCA ? Depressive disorder, not elsewhere classified ? ? Essential hypertension, benign ? ? Family history of malignant neoplasm of breast mother and sisters ? Fibromyalgia ? ? Generalized osteoarthrosis, unspecified site ? ? GERD (gastroesophageal reflux disease) ? ? Hearing impaired ?since age 4, reads lips ? Other and unspecified hyperlipidemia ? ? PONV (postoperative nausea and vomiting) 03/16/2017 ? STEMI (ST elevation myocardial infarction) ([facility]) 09/2018 ? LIZETTE X2 :LAD ? Type II or unspecified type diabetes mellitus without mention of complication, not stated as uncontrolled ? ? PAST SURGICAL HISTORY ? ANGIO TRANSCATH STENT PLACEMEN ? 09/2018 LIZETTE X2 LAD ? BREAST BIOPSY CORE ? 1998 ? neg ? INCISION EARDRUM,ASPIR,GEN ANESTH ? ? Myringotomy/tubes ? LEFT HEART CATH,PERCUTANEOUS ? 2007, 2004 ? Cardiac cath, L heart ? PAST SURGICAL HISTORY OF? corrective eye surgery ? REMOVAL GALLBLADDER ? ? Cholecystectomy ? TOTAL ABDOM HYSTERECTOMY ? Hysterectomy, CRIS ? ? Current Outpatient Medications: lisinopril 2.5 mg tablet Take 1 tablet by mouth once daily. spironolactone (ALDACTONE) 25 mg tablet Take 0.5 tablets by mouth once daily. carvedilol (COREG) 3.125 mg tablet Take 1 tablet by mouth twice daily. ticagrelor (BRILINTA) 90 mg tablet Take 1 tablet by mouth twice daily. citalopram (CELEXA) 20 mg tablet Take 2 tablets by mouth once daily. pravastatin (PRAVACHOL) 40 mg tablet Take 1 tablet by mouth daily at bedtime. traZODone (DESYREL) 100 mg tablet TAKE TWO TABLETS BY MOUTH ONCE DAILY AT BEDTIME aspirin, enteric coated (ASPIR-LOW) 81 mg EC tablet Take 1 tablet by mouth once daily. polyethylene glycol 3350 (MIRALAX) 17 gram/dose powder Take 17 g by mouth once daily. (Patient taking differently: Take 17 g by mouth as needed.) Blood-Glucose Meter (ACCU-CHEK KATELYNN PLUS METER) [facility] [place] Test blood sugar as director ICD-10: E11.65 insulin NPH human (NOVOLIN N NPH U-100 INSULIN) injection Inject 22 units subcutaneously before breakfast and 22 Units before dinner insulin regular human (NOVOLIN R REGULAR U-100 INSULN) 100 unit/mL injection 14 units Breakfast, 14 units lunch, 14 units dinner fluticasone-salmeterol (ADVAIR DISKUS) 250-50 mcg/dose dsdv Inhale 1 Puff as instructed twice daily. Rinse and gargle mouth after use with water. blood sugar diagnostic (ACCU-CHEK KATELYNN PLUS TEST STRP) test strip Test blood sugar(s) 4 times daily. Dx: E11.65. Insulin: Yes nystatin (MYCOSTATIN) cream Apply 1 application to affected area twice daily. busPIRone (BUSPAR) 5 mg tablet Take 1 tablet by mouth twice daily. acetaminophen (TYLENOL ARTHRITIS PAIN) 650 mg CR tablet Take 1 tablet by mouth every 8 hours as needed. Insulin [place], Disposable, (PEN NEEDLE) 32 gauge x 5/32 ndle Use once daily with Lantus alcohol swabs (ALCOHOL PREP SWABS) padm Apply 1 application to affected area four times daily. Insulin Syringe-Needle U-100 0.5 mL 31 gauge x 5/16 syrg Use as directed to inject insulin four times daily albuterol (PROVENTIL) 2.5 mg /3 mL (0.083 %) nebulizer solution Use 3 mL via nebulizer every 6 hours as needed for Wheezing/Shortness of Breath. Use over 5-15minutes. glucose 4 gram chewable tablet Take 4 tablets by mouth as needed for Low Blood Sugar. meclizine (ANTIVERT) 25 mg tab Take 25 mg by mouth every 6 hours as needed. PSYLLIUM SEED, WITH SUGAR, (METAMUCIL ORAL) Take by mouth as needed. ? ? ALLERGIES: Eggs [Other]; Fish; Codeine; Darvocet A500 [Propoxyphene N-Acetaminophen]; Florone [Diflorasone]; Glucovance [Glyburide-Metformin]; Macrodantin [Nitrofurantoin Macrocrystalline]; Metformin; Morphine; Percocet [Oxycodone-Acetaminophen]; Prevacid [Lansoprazole]; Sulfa (Sulfonamide Antibiotics); Vicodin [Hydrocodone-Acetaminophen] ? PERSONAL HISTORY: Social History Socioeconomic History Marital status: Spouse name: Tello Number of children: 1 Years of education: Not on file Highest education level: Not on file Social Needs Financial resource strain: Not on file Food insecurity - worry: Not on file Food insecurity - inability: Not on file Transportation needs - medical: Not on file Transportation needs - non-medical: Not on file Occupational History Occupation: none/retred Employer: [employer] Tobacco Use Smoking status: Never Smoker Smokeless tobacco: Never Used Substance and Sexual Activity Alcohol use: No Drug use: No Sexual activity: Yes Other Topics Concerns: Not on file Social History Narrative , , has one daughter-. She relates highest level of education was 5th grade. ? FAMILY HISTORY ? Coronary Artery Disease Mother ? ? Diabetes Mother ? ? Breast Cancer Mother ? ? Coronary Artery Disease Father ? ? Diabetes Father ? ? Hypertension Father ? ? Diabetes Sister ? ? Diabetes Sister ? ? Diabetes Sister ? ? Diabetes Sister ? ? Diabetes Brother ? ? Diabetes Brother ? ? Coronary Artery Disease Brother ? ? Coronary Artery Disease Sister ? ? ? REVIEW OF SYSTEMS: General: The patient NOTES fatigue, denies weight loss, denies weight gain, denies feeling hot, and denies feelings of cold. Eyes: The patient denies glaucoma, NOTES eye injury/surgery, wears glasses or contacts. Ear/Nose/Throat: The patient denies allergies, denies hayfever, denies ear infections, and denies bloody noses. Cardiovascular: The patient denies chest pain, denies heart disease, denies high blood pressure,NOTES cardiac stent, NOTES prior heart attack, denies irregular heart beat, NOTES high cholesterol, denies poor circulation, denies heart failure, other cardiac issues, denies claudication, denies cold feet, denies peripheral arterial stent. Respiratory: The patient denies tuberculosis, denies pneumonia, denies frequent cough, denies pulmonary embolism, denies shortness of breath, and denies coughing up blood. Gastrointestinal: The patient denies difficulty swallowing, NOTES acid reflux, denies ulcers, denies vomiting, denies jaundice/hepatitis, denies gallbladder problems, denies black or tarry stools, denies hemorrhoids, denies bleeding from rectum, denies diverticulitis, denies constipation, denies diarrhea, denies loss of stool control, and denies hernias. Kidney/Bladder: The patient denies kidney stones, denies urine infections, and denies bloody urine. Skin: The patient denies a history of skin cancer, denies bleeding/changing moles, and denies a history of skin rash. Neurologic: The patient denies a history of epilepsy/convulsions, denies headaches, denies head/spinal injuries, and denies stroke/TIA. Psychiatric: The patient denies psychiatric medications, NOTES depression, and denies voices, denies substance abuse. Endocrine: The patient denies thyroid disorders, NOTES diabetes, and denies hormonal problems. Hematologic: The patient denies a history of bruising, denies bleeding, and denies anemia, denies blood clots. Infections: The patient denies a history of measles and mumps, denies rheumatic fever, and denies sexually transmitted diseases. Musculoskeletal: The patient denies back pain/injury, denies back problems, denies sciatica, denies knee/foot trouble, NOTES arthritis, or denies gout. ? PHYSICAL EXAMINATION: General: The patient is 58 year old female, well nourished, well hydrated in no acute distress. The patient is oriented to time, place, and person. VITALS: Ht: 5' Wt: 172# Head ? Normocephalic. EOM intact with sclera clear and no icterus noted. Mouth with mucus membranes moist. Neck - supple with no jugular venous distention noted. Trachea is midline. No carotid bruits noted. No thyroid enlargement or thyroid nodules detected. No masses noted. Chest/breast ? healed biopsy site - palpable left breast hematoma at biopsy site Lungs ? clear to auscultation. Normal breath sounds. No rales/rhonchi/wheezing noted. No labored breathing noted, such as retractions. No cough heard. Heart ? normal S1 and S2 auscultated. No rubs/clicks/murmurs noted. Regular rate. Abdomen ? soft and benign. Normal bowel soundss. No abdominal bruits noted. Difficult to determine if any masses or organomegaly due to body habitus. Extremities ? no calf tenderness noted. No pitting edema noted Skin ? normal skin integrity. Lymph ? no cervical adenopathy detected, no supraclavicular adenopathy detected, no axillary adenopathy detected Neurological ? gait normal, no focal deficits note Psych ? calm and appropriate RADIOLOGIC STUDIES: As Noted ? ? IMPRESSION: left breast neoplasia of uncertain behavior ? PLAN: I have discussed the above with the patient. She will require reexcision of the area - wire localization/lumpectomy However, she has CAD with recent UT and stent placement. 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 May need to defer procedure until cardiac clearance is obtained I have explained the procedure to the patient. I have counseled the patient as to the risks of the procedure, including but not limited to: infection, bleeding, injury to any blood vessels/nerves, scar tissue, wound infections, hematoma, complications of anesthesia, etc. ? the patient understands. The patient wishes to proceed. Will schedule for procedure - left breast lumpectomy with frozen section via wire localization at [facility] [place]. I have answered all questions to the patient?s satisfaction and the patient has no further questions. . Return to Clinic: The patient is instructed to follow-up with me after the above
[2018-12-05] VITALS (7 sets, daily range): BP systolic 106–142; BP diastolic 61–85; PULSE 59–72; RESP 16–18; TEMP 36.3–37; O2SAT 89–99; BMI 34.6
--- NOTE | 2018-12-05 | BREAST_PTH ---
PATIENT: ANGEL ALMODOVAR LOC: [facility] [place] U#:[id number] AGE/SX: 58/F ROOM: RE12/05/[address]: Dr. Doris Tobin MD : 1960 BED: DIS: 12/05/2018 SPEC #: [id number] RECD: 12/05/18 14:56 STATUS: CULLEN REQ #: [id number] JOSE: 12/05/18 00:[address]: Doris Tobin DEPT: SURGICAL PATHOLOGY RECD BY: Genny Call ENTERED: 12/05/18 15:24 SP TYPE: BREAST OTHR DR: MD Bill Wilkes MD Tissues: A - Left breast, NOS B - Left breast, NOS Procedures: Surgery Specimen Level IV Surgery Specimen Level V HEADER OPERATION: Left breast lumpectomy via wire localization PRE-OP DIAGNOSIS: Left breast neoplasia TISSUE SUBMITTED: A - Left breast lumpectomy, one short suture haji superior margin, one long suture haji lateral border, two short sutures bill posterior border, B - Additional left breast tissue MICROSCOPIC DIAGNOSIS A. Left breast, lumpectomy with needle localization: Ductal carcinoma in situ. Intraductal papilloma with atypia. Fibrocystic changes and intraductal hyperplasia with focal atypia. Extensive changes consistent with previous biopsy site. See cancer summary below. B. Additional left breast tissue, biopsy: Fibrocystic changes and intraductal hyperplasia without atypia. Fragments of blood clots. SJ:tony 12/07/18 DUCTAL CARCINOMA IN SITU SUMMARY: Specimen - partial breast Procedure - excision with wire-guided localization. Lymph node sampling - no lymph nodes present. Specimen integrity - multiple designated specimens Specimen size - 7 x 4 x 3 cm, lumpectomy specimen Additional tissue - 1 x 0.5 x 0.5 cm Specimen laterality - left Tumor site - not identified Size (extent) of DCIS - 0.3 cm in greatest dimension (measured microscopically) Number of blocks with DCIS - 4 Number of blocks examined - 11 (specimen A & B) Histologic type - ductal carcinoma in situ Architectural pattern - cribriform Nuclear grade - Grade 1 (low) Necrosis - not identified Margins - margins are uninvolved by DCIS. The tumor is 0.5 cm away from the closest superior margin. Treatment effect: Response to presurgical surgical (neoadjuvant) therapy - no known presurgical therapy. Lymph nodes - not submitted Additional Pathologic Findings - extensive changes consistent with previous biopsy site. See comment Intraductal papilloma with atypia. Fibrocystic changes and intraductal hyperplasia with focal atypia. Ancillary Studies ([id number]) ER - positive (>95%, strong) MI - positive (>95%, strong) Her2 ivonne (IHC) - Negative (1+) Her2 by FISH - not performed. Microcalcifications - present in both ductal carcinoma in situ and non-neoplastic tissue. Clinical history - Please make reference to previous specimen ([id number]), left breast, stereotactic core biopsy with diagnosis of fragment of atypical papillary neoplasm. Pathologic Staging: pTis(DCIS) pNx Mx The above summary is in compliance with [employer] of [place] [employer] (CAP) Cancer Protocols Checklist and [place] Joint Committee on Cancer (AJCC), Staging Manual, 8th Ed. COMMENT Case has been reviewed in consultation with Dr. Meyers who concurs with the above diagnosis. IDC:CE MICROSCOPIC DESCRIPTION Slides are reviewed. GROSS DESCRIPTION A - Received fresh for intraoperative consultation labeled with the patient's name is a specimen designated left breast lumpectomy. The specimen consists of a piece of fibroadipose tissue with needle localization measuring 7 x 4 x 3 cm. The specimen is oriented as follows: one short suture haji superior margin, one long suture haji lateral border, two short sutures bill posterior border. The specimen is inked as follows: anterior - yellow, posterior - black, superior - blue, inferior - green, medial - red and lateral - orange. Serial sections reveal a biopsy cavity measuring 2 cm in greatest dimension. This biopsy cavity is 0.1 cm away from the closest inferior margin. No mass lesion is identified. This information is conveyed to the surgeon intraoperatively. [employer] Mechanic sections are submitted in ten cassettes as follows: 1 & 2 - perpendicular margins, 3-10 - hardware supplies sales representative sections from the biopsy cavity and surrounding area. Almost 90% of the specimen is submitted. / SJ:tony 12/06/18 B - Received in fixative is one container labeled with the patient's name and designated additional left breast tissue. The specimen consists of a piece of rice-yellow, indurated fibroadipose tissue measuring 1 x 0.5 x 0.5 cm. This piece is bisected. Also present in the container are multiple fragments of blood clot measuring in aggregate 2.5 x 1 x 0.3 cm. The entire specimen is submitted in one cassette. / SJ:tony 12/06/18 TC:0 CPT: 71122, 37908, 08267
--- NOTE | 2018-12-05 | IMM_PTH ---
PATIENT: ANGEL ALMODOVAR [place] [facility] [place][id number] AGE/SX: 58/F ROOM: RE12/05/[address]: Dr. Doris Tobin MD : 1960 BED: DIS: 12/05/2018 SPEC #: [id number] RECD: 12/07/18 13:41 STATUS: CULLEN REQ #: [id number] JOSE: 12/05/18 00:[address]: Doris Tobin DEPT: IMMUNOHISTOCHEMISTRY RECD BY: Genny Call ENTERED: 12/07/18 13:42 SP TYPE: IMMUNO OTHR DR: MD Anup Wilkes MD Tissues: A - Left breast, NOS Procedures: CALPONIN-1 (add) CK8 (add) E-CAD (add) HER2 LUDWIN (add) AL (add) P40 (add) ER (initial) PHYSICIAN & INSTITUTION [place] [id number] SPECIMEN INFORMATION: Tissue Source: Left breast lumpectomy Clinical Info: Left breast neoplasia Specimen Number: [id number] CPT code: 67517, 17362 x3, 96868 x3 METHODOLOGY: Deparaffinized sections of prefer/formalin-fixed tissue or PAP/DQ stained slides are incubated with monoclonal/polyclonal antibodies/oligonucleotide probes. Localization is made via biotin free immunoperoxidase method. Appropriate controls are performed and reacted as expected. Results on target cell population are indicated in the following table: RESULTS: ANTIBODY / CLONE RESULT Block A8 E-Cad (ECH-6) positive CK8 ([id number]) positive P40 (BC28) positive Calponin-1 (ZD381U) positive MORPHOMETRIC ANALYSIS ER (clone 6F11) >95%, strong (positive) AL (clone 16/1E2) >95%, strong (positive) Her-2Neu (clone CB11) 1+ (negative) The prognostic test for HER2 is performed on formalin-fixed paraffin embedded tissue. A 3+ (positive) staining pattern is defined as intense, homogeneous, complete, circumferential membranous staining in >10% of contiguous tumor cells. A similar weak (2+) staining pattern is interpreted as equivocal. SHARITA follow-up testing is recommended for all equivocal cases. Positivity/negativity for ER/AL is reported if > or < 1% of the tumor cells are immuno- reactive, respectively. The ASCO/CAP criteria is used for scoring. Reference: Journal of Clinical Oncology, 2013; 31:8836-4867 & 2010; 16:7414-0646. Duration of fixation: 5.5 Hrs; Sample Adequate: Yes. These assays have not been validated on decalcified tissues. Results should be interpreted with caution given the likelihood of false negativity on decalcified specimens. These tests were developed and their performance characteristics determined by [facility]. They may not have been cleared or approved by the U.S. Food and Drug Administration. The FDA has determined that such clearance or approval is not necessary. INTERPRETATION: A. Left breast lumpectomy: Focal ductal carcinoma in situ. SJ:tony 12/08/18
[2018-12-05 11:35] LABS: Bedside Glucose 343 mg/dL (70-110)
--- NOTE | 2018-12-05 11:39 | BI_ITS ---
SURGICAL BREAST SPECIMEN RADIOGRAPH CLINICAL: Left breast surgical specimen. FINDINGS: A single needle localized left breast surgical specimen is submitted for interpretation. The wire and wire hook appear intact. There are no suspicious clustered microcalcifications within the specimen. There is no definite border-forming mass within the specimen. No biopsy clip is identified within the specimen. BI/Breast Biopsy Specimen IMPRESSION: Pathology is pending. Electronically Signed: Daniele Jaquez MD at 15:30 EDT , Service support ,
--- NOTE | 2018-12-05 12:00 | NM_ITS ---
Procedure: Left breast lymphoscintigraphy. INDICATIONS: Left breast cancer. PROCEDURE: The periareolar left breast was thoroughly prepped in the usual sterile manner. Thereafter, a total activity of 1.1 mCi was divided into 4 syringes and each syringe was utilized to perform intradermal/subdermal injection at the 12:00, 3:00, 6:00 and 9:00 periareolar regions. IMPRESSION: Successful procedure. Complications: The patient tolerated the procedure well. There is no evident immediate postprocedure complication. Electronically Signed: Daniele Jaquez MD at 15:13 EDT , Service support , NM/Lymph Node Injection Only
[2018-12-05 12:30] LABS: Bedside Glucose 302 mg/dL (70-110)
[2018-12-05] MEDS: Cefazolin 2 GM in 0.9% Normal Saline 100 ML IV (14:00)
[2018-12-05] MEDS: Bupiv/Epi 0.25% 30 ML Vial (14:20)
--- NOTE | 2018-12-05 15:16 | PCM.OPRPT ---
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 Post-Operative Diagnosis: same Surgery/Procedure Performed:: left breast lumpectomy via wire localization Description of Surgical Findings:: no mass identified, no clip in the specimen, however, there was hematoma fluid that was aspirated and clip may have been aspirated out transport nurse: Davian Narayanan Type of Anesthesia:: General Anesthesiologist: Maciel Natarajan Specimen's removed: left breast lumpectomy tissue Estimated Blood Loss (mL): < 10 Fluids Replaced: 1200 cc RL Description of Procedure: After informed consent was given, the patient was brought into the Breast Stereotactic Radiology suite. Appropriate time out protocol was followed. She was then placed in the prone position on the [place] stereotactic table. The patient?s left breast was placed in the opening at the head of the table. A laborer syrup machine compression mammogram was then obtained in the lateral view. The marker clip that was previously placed was identified. Stereo pictures of the lesion were then taken for XYZ coordinates. The Kopans needle was then positioned where it would be entering into the patient?s breast. The skin at this site was then cleansed with a surgical skin preparation. The skin and subcutaneous tissues at this site were then infiltrated with 1% xylocaine. The Kopans needle was then positioned into the patient?s breast at the proper coordinates of depth. A laborer syrup machine film was obtained which revealed the wire in proper position. The patient was then placed in the supine position and the wire was taped into place. A unilateral mammogram in the CC and MLO view were then taken for use in the OR. The patient tolerated this portion of the procedure well and was brought to the AC awaiting surgery in the OR. The patient was then brought to the Operating Room and placed on the operating table in the supine position. Appropriate time out protocol was followed. A wire had already been placed in the stereotactic biopsy room in the radiology department as described above. The left breast with the wire in placed was then prepped with a sterile surgical skin preparation and sterile surgical drapes were placed. The skin and subcutaneous tissues at the site of the breast lesion was then infiltrated with local anesthetic with epinephrine. A transverse skin incision was then made with a 15 blade scalpel and carried down through to the subcutaneous tissues. Hemostasis was controlled with electrocautery. The wire was then palpated out and brought into the wound from outside. The breast tissue surrounding the wire was then carefully palpated out and from the surrounding tissues using electrocautery. Of noted, that there was a previous hematoma, and the fluid from the hematoma spilled out of the cavity and was suctioned out. The breast tissue, once from the breast, was then forwarded to the radiology department, where a specimen mammogram revealed that the lesion was within the specimen. The breast tissue was then forwarded to pathology for analysis. Pathology review revealed no actual mass and no biopsy cavity could be discerned. . The wound cavity was carefully examined. No further suspicious tissue was palpated or visualized. Hemostasis was carefully controlled with electrocautery. The subdermal tissues were then approximated with vicryl suture. The incision was then reapproximated close using running monocryl suture. Cavilon and steristrips were then placed to reinforce the skin closure. A sterile dressing was then applied. The patient was then brought to the Recovery Room in stable condition. - Complications none noted - Admit VTE Documentation VTE Present on Admission: Yes VTE Mechan Device Prophylaxis: SCD's
--- NOTE | 2018-12-05 15:19 | OP.PCM_ITS ---
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 Post-Operative Diagnosis: same Surgery/Procedure Performed:: left breast lumpectomy via wire localization Description of Surgical Findings:: no mass identified, no clip in the specimen, however, there was hematoma fluid that was aspirated and clip may have been aspirated out meat selector: Davian Narayanan Type of Anesthesia:: General Anesthesiologist: Maciel Natarajan Specimen's removed: left breast lumpectomy tissue Estimated Blood Loss (mL): < 10 Fluids Replaced: 1200 cc RL Description of Procedure: After informed consent was given, the patient was brought into the Breast Stereotactic Radiology suite. Appropriate time out protocol was followed. She was then placed in the prone position on the [place] stereotactic table. The patient?s left breast was placed in the opening at the head of the table. A gallery or museum technician compression mammogram was then obtained in the lateral view. The marker clip that was previously placed was identified. Stereo pictures of the lesion were then taken for XYZ coordinates. The Kopans needle was then positioned where it would be entering into the patient?s breast. The skin at this site was then cleansed with a surgical skin preparation. The skin and subcutaneous tissues at this site were then infiltrated with 1% xylocaine. The Kopans needle was then positioned into the patient?s breast at the proper coordinates of depth. A gallery or museum technician film was obtained which revealed the wire in proper position. The patient was then placed in the supine position and the wire was taped into place. A unilateral mammogram in the CC and MLO view were then taken for use in the OR. The patient tolerated this portion of the procedure well and was brought to the AC awaiting surgery in the OR. The patient was then brought to the Operating Room and placed on the operating table in the supine position. Appropriate time out protocol was followed. A wire had already been placed in the stereotactic biopsy room in the radiology department as described above. The left breast with the wire in placed was then prepped with a sterile surgical skin preparation and sterile surgical drapes were placed. The skin and subcutaneous tissues at the site of the breast lesion was then infiltrated with local anesthetic with epinephrine. A transverse skin incision was then made with a 15 blade scalpel and carried down through to the s ubcutaneous tissues. Hemostasis was controlled with electrocautery. The wire was then palpated out and brought into the wound from outside. The breast tissue surrounding the wire was then carefully palpated out and from the surrounding tissues using electrocautery. Of noted, that there was a previous hematoma, and the fluid from the hematoma spilled out of the cavity and was suctioned out. The breast tissue, once from the breast, was then forwarded to the radiology department, where a specimen mammogram revealed that the lesion was within the specimen. The breast tissue was then forwarded to pathology for analysis. Pathology review revealed no actual mass and no biopsy cavity could be discerned. . The wound cavity was carefully examined. No further suspicious tissue was palpated or visualized. Hemostasis was carefully controlled with electrocautery. The subdermal tissues were then approximated with vicryl suture. The incision was then reapproximated close using running monocryl suture. Cavilon and steristrips were then placed to reinforce the skin closure. A sterile dressing was then applied. The patient was then brought to the Recovery Room in stable condition. - Complications none noted - Admit VTE Documentation VTE Present on Admission: Yes VTE Mechan Device Prophylaxis: SCD's
--- NOTE | 2018-12-05 15:20 | DCINST_ITS ---
Discharge Diet: No Restrictions Discharge Activity: Return to Normal Activity, May not drive while taking narcotic pain medications. Additional Activity Instructions:: Avoid blunt trauma to chest. Wear supportive bra during the day Call your doctor if your incision/area has: Continuous Slow Oozing, Foul Smelling Discharge Call your doctor if you observe: Fever of 101 or Higher Additional Dressing/Incision Instructions:: Leave dressing intact. May get wet in shower. Do not soak - no tub baths/swimming Allergies/Adverse Reactions: Allergies calcium carbonate [From Florical] Allergy (Verified 11/16/18 14:02) Swelling codeine Allergy (Verified 11/16/18 14:02) Swelling egg Allergy (Verified 11/16/18 14:02) Unknown fish derived Allergy (Verified 11/16/18 14:02) Unknown nitrofurantoin macrocrystalline [From Macrodantin] Allergy (Verified 11/16/18 14:02) Swelling oxycodone HCl [From Percocet] Allergy (Verified 11/16/18 14:02) Hives propoxyphene napsylate [From Darvocet-N 100] Allergy (Verified 11/16/18 14:02) Hives sodium fluoride [From Florical] Allergy (Verified 11/16/18 14:02) Swelling Sulfa (Sulfonamide Antibiotics) Allergy (Verified 11/16/18 14:02) Unknown Medications to take at Discharge Albuterol Inhaler [Ventolin Hfa] 2 puff INHALATION Q6H PRN PRN 11/10/16 Citalopram Hydrobromide [Celexa] 20 mg PO DAILY 11/10/16 Fluticasone/Salmeterol [Advair 250/50 Mcg Diskus] 1 puff INHALATION BID 11/10/16 Insulin NPH Human Isophane [Humulin N] 15 unit SQ BID 11/10/16 Insulin Regular, Human [Humulin R] 14 unit SC TID 11/10/16 Polyethylene Glycol 3350 [Miralax] 17 gm PO DAILY PRN 11/10/16 Trazodone HCl 200 mg PO QHS 11/10/16 Aspirin E.C. [Ecotrin] 81 mg PO DAILY@0800 tablet 10/12/18 carvedilol 3.125 mg tablet 3.125 mg PO BID #60 tab 12/01/18 lisinopril 2.5 mg tablet 2.5 mg PO DAILY #30 tab 12/01/18 pravastatin 40 mg tablet 40 mg PO QHS #30 tab 12/01/18 ticagrelor 90 mg tablet 90 mg PO BID #60 tab 12/01/18 isosorbide mononitrate ER 60 mg tablet,extended release 24 hr 60 mg PO BID #60 tab 12/02/18 Hydrocodone/Acetaminophen [[place] 5-325 Tablet] 1 ea PO Q8 PRN 5 Days #15 tab 12/05/18 The following prescriptions were given: Hydrocodone/Acetaminophen [[place] 5-325 Tablet] 1 ea PO Q8 PRN 5 Days #15 tab PRN Reason: Mod-Severe Pain (-05/11) Primary Care Physician: Anup Quinones MD [Primary Care Provider] - Please Follow Up With: Doris Tobin MD - call When: to be seen in 1 week, please call for date and time, thank you
[2018-12-05 15:51] LABS: Bedside Glucose 208 mg/dL (70-110)
[2018-12-05] MEDS: HYDROcodone Bitartrate/Apap 5/325 Tablet PO (16:53)
== END 2018-12-05 17:13 | disposition home or self-care (01) ==
LOC: SDC 10:54 → AC 10:59
PROVIDERS: Family Provider Family Medicine; PCP Family Medicine; Referring Provider Surgery; Visit Provider Surgery
PROC: (CPT 19301; principal; 2018-12-05 13:45)
DX: D05.12 Intraductal carcinoma in situ of left breast (principal); E11.9 Type 2 diabetes mellitus without complications; E78.5 Hyperlipidemia, unspecified; M79.7 Fibromyalgia; I10 Essential (primary) hypertension; F32.9 Major depressive disorder, single episode, unspecified; I25.10 Atherosclerotic heart disease of native coronary artery without angina pectoris; J45.909 Unspecified asthma, uncomplicated; I25.2 Old myocardial infarction; Z80.3 Family history of malignant neoplasm of breast; Z79.4 Long term (current) use of insulin
CPT/HCPCS: 19301; 19281; 38792; 76098; 82962; 88305; 88307; 88341; 88342; A9541; J7120; J2405; Q9968

== ENCOUNTER 2018-12-21 13:57 | Emergency (ER) | payer MEDICARE, SELFPAY ==
[2018-10-10 13:17] VITALS: BMI 35.9
[2018-12-05 11:22] VITALS: BMI 34.6
[2018-12-21 13:58] VITALS: BP 157/67; PULSE 85; RESP 16; TEMP 35.4; O2SAT 92; BMI 38.2
[2018-12-21] MEDS: Dextrose 50%-Water 25 GM/50 ML DISP.SYRIN IV (14:11)
--- NOTE | 2018-12-21 14:14 | ED.DCSUM_ITS ---
- ER Visit Summary Date of Service: 12/21/18 Chief Complaint: Hypoglycemia History of Present Illness: The patient is a [address] Quinones. She has a history of diabetes. She takes 15 units of NPH twice daily and 14 units of regular insulin 3 times daily. States that she last took her insulin at 1130 and then ate chicken salad and yogurt. She was in cardiac rehab and her blood sugar began to drop. She drank juice and had lower dunes and chocolate and her blood sugar did not come up so they sent her to the emergency department. On review of systems patient reports that she has had a cough productive clear sputum for the past 2 days. No fever, chills, chest pain, shortness of breath. No other complaints. Physical Examination: Vitals: Stable. Afebrile. General: Well-nourished and well-developed. Head: Normocephalic atraumatic. Neck: Supple, no lymphadenopathy. No JVD. Nontender. Cardiovascular: Regular rate and rhythm. No murmurs. Respiratory: No respiratory distress. Clear to auscultation bilaterally. Abdominal: Soft, nontender, nondistended, normal bowel sounds. No guarding, rebound, or peritoneal signs. Back: Nontender. Extremities: Nontender, no edema. Skin: Normal color, no rash. Neurologic: Alert and oriented ?3. Cranial nerves II through XII are intact. Normal strength and sensation. Psych: Normal affect. Emergency Department Course and Treatment: The patient was given an amp of D50 upon arrival to the emergency department and is back to her baseline. She feels well and would like to go home. I have offered to observe her for a period of time. However, she reports that she can do this at home. Treatment Plan: Patient be discharged instructions to check her sugar once an hour for the next 4 hours. If she finds that it is not dropping again to resume her insulin as previously directed. Return to the emergency department for any worsening symptoms. Disposition: To home in improved and stable condition. Impression: 1. Hypoglycemia on insulin. This note was generated with [employer] software. It may contain incorrect words, spelling, and punctuation that were not noted in review of the chart prior to signing ED Disposition - Plan for ED Patient: Instructions: ED Diabetes Hypoglycemia Insulin React Referrals: Anup Quinones MD [Primary Care Provider] - 1-2 Days if not improving
[2018-12-21 14:51] VITALS: BP 138/72; PULSE 81; RESP 18; O2SAT 98
[2018-12-21 16:36] LABS: Bedside Glucose 398 mg/dL (70-110)
== END 2018-12-21 14:52 | disposition home or self-care (01) ==
LOC: ED 14:22
PROVIDERS: Emergency Provider Emergency Medicine; Family Provider Family Medicine; PCP Family Medicine
DX: E11.649 Type 2 diabetes mellitus with hypoglycemia without coma (principal); Z79.4 Long term (current) use of insulin; R05 Cough; I10 Essential (primary) hypertension; I25.10 Atherosclerotic heart disease of native coronary artery without angina pectoris; J45.909 Unspecified asthma, uncomplicated; M79.7 Fibromyalgia; Z85.3 Personal history of malignant neoplasm of breast
CPT/HCPCS: 82962; 93798; 96374; 99283; A4216

== ENCOUNTER 2018-12-30 13:00 | Outpatient (RCR) | payer MEDICARE, SELFPAY ==
[2018-10-10 13:17] VITALS: BMI 35.9
[2018-11-23 14:00] VITALS: BMI 36.1
--- NOTE | 2018-12-02 13:22 | EKG12_ITS ---
Test Reason : CHEST PAIN Blood Pressure : / mmHG Vent. Rate : 072 BPM Atrial Rate : 072 BPM P-R Int : 154 ms QRS Dur : 084 ms QT Int : 424 ms P-R-T Axes : 063 057 067 degrees QTc Int : 464 ms Normal sinus rhythm Normal ECG Confirmed by MALLORIE MYERS, OSKAR ([id number]), editorial project manager ALEJANDRINA BRYAN ([id number]) on 12/06/2018 1:49:41 PM Referred By: Oskar Olsen Confirmed By:OSKAR OLSEN MD
--- NOTE | 2018-12-21 08:13 | PCM.CR.ITP ---
Exercise - 30-day Assessment - Visit Date of Eval: 12/21/18 Session #:: 6 - Medical leave for needed breast surgery - Stages of Change Stages of Change:: Action - Physician Prescribed Exercise Modalities: Treadmill, Airdyne, NuStep, SciFit Frequency (days/week): 3 Duration (Minutes):: 30-45 Intensity: 60-80% age predicted maximum heart rate reserve METs - Progression: 0.5-1.0 MET, RPE 11-14 WEEK: 3.5 Target Heart Rate:: 93-115 - Hypertension Resting Blood Pressure:: 130/72 Peak Exercise Blood Pressure:: 134/80 Medication Changes:: No - Intervention Home Exercise/Activity Goal:: Sitting Time <3 hrs/day - Education Goals:: Warm-up, RPE OLIVIA Scale, S/S, Safe Exercise, Self-Monitoring - Exercise Program Goals Exercise Program Goals: Aerobic Activity >30 min Nutrition - Initial Assessment - Program Goals Nutrition Program Goals: LDL <70. Total Cholesterol <200. HDL >45. Triglycerides <150. HgbA1C <7%. BMI <25 - Diabetes Do you monitor your blood sugar at home?: Yes Nutrition - 30-Day Assessment - Program Goals Nutrition Program Goals: LDL <70. Total Cholesterol <200. HDL >45. Triglycerides <150. HgbA1C <7%. BMI <25 - Visit Date of Eval: 12/21/18 - Stages of Change Stages of Change:: Action - Lipids Has the patient seen the dietitian?: No - Diabetes Diabetes:: Yes Insulin: Yes Non-Insulin Dependent?: Yes Random Blood Glucose:: 152 - 85-302 - Weight Management Weight:: 172 lb - Intervention Referral to dietitian:: Yes Referral to Diabetic Clinic:: Yes Will attend diet classes:: Yes - Education Attended class for:: Signs & symptoms of hypoglycemia, Signs & symptoms of hyperglycemia, Relate diabetes to coronary artery disease, Healthy eating Tobacco - 30-Day Assessment - Program Goals Tobacco Program Goals: Complete smoking cessation. Attend education classes. Improve Knowledge Test score - Stage of Change Stages of Change:: Action - Learning Barriers Learning Barriers: Participates in education - Family Support Do you have family support?: Yes - Tobacco Use Tobacco Use: Non-smoker Do you use smokeless tobacco?: No - Intervention Smoking Cessation Referral:: No Individual Education/Counseling:: No Education Schedule Given:: Yes - Education Attended class for:: Coronary artery disease, Risk factors, Sexuality, Medical compliance, Cardiac A&P, Angina signs & symptoms Psychosocial - Initial Assess - Target Goals Target Goals: Assess presence or absence of depression. Using a valid screening tool, maximizes coping skills. Positive support system - Psychosocial Test Tool Used:: HANDS Depression Questionnaire - Assistive Devices Fall Risk Assessed:: Yes Psychosocial - 30-Day Assess - Target Goals Target Goals: Assess presence or absence of depression. Using a valid screening tool, maximizes coping skills. Positive support system - Stages of Change Stages of Change:: Action - Psychosocial Test Tool Used:: HANDS Depression Questionnaire - Intervention PS - Interventions: Yes Attend Stress Management Classes, Yes Uses Stress Management Skills, No Referral to Mental Health, No Referral to [facility] Case Management, No Referral to Physician - Education Attended classes for:: Coping techniques, Signs & symptoms of depression, Stress management, Relaxation techniques - Patient/Program Goal Preventative Medication(s):: Aspirin, Clopidogrel, Beta josh, Statin/lipid - Assistive Devices Assistive Devices:: None Fall Risk Assessed:: Yes Patient Health Questionnaire 30-Day Re-eval Assessment 1. Little interest or pleasure in doing things: More than half the days 2. Feeling down, depressed, or hopeless: More than half the days 3. Trouble falling or staying asleep, or sleeping too much: Not at all 4. Feeling tired or having little energy: More than half the days 5. Poor appetite or overeating: Not at all 6. Feeling bad about yourself -- or that you are a failure or have let yourself or your family down: More than half the days 7. Trouble concentrating on things, such as reading the newspaper or watching television: Several days 8. Moving or speaking so slowly that other people could have noticed. Or the opposite - being so fidgety or restless that you have been moving around a lot more than usual: Not at all 9. Thoughts that you would be better off , or of hurting yourself in some way: Not at all How difficult have these problems made it for you to do your work, take care of things at home, or get along with other people?: Somewhat difficult Total Score: 9 Self-Efficacy 30-Day Re-eval Assessment We would like to know how confident you are in doing certain activities. Please select your confidence level for:: Select your confidence level for the following using the scale 1-10 where 1 is not at all confident and 10 is totally confident. Your score is the average of all 6 responses. Fatigue: How confident are you that you can keep the fatigue caused by your disease from interfering with the things you want to do? Select Number: 4 Physical Discomfort or Pain: How confident are you that you can keep the physical discomfort or pain of your disease from interfering with the things you want to do? Select Number: 3 Emotional Distress: How confident are you that you can keep the emotional distress caused by your disease from interfering with the things you want to do? Select Number: 5 Other Symptoms or Health Problems: How confident are you that you can keep other symptoms or health problems from interfering with the things you want to do? Select Number: 3 Different Tasks and Activities: How confident are you that you can do the different tasks and activities needed to manage your health condition so as to reduce your need to see a doctor? Select Number: 5 Medication: How confident are you that you can do things other than just taking medication to reduce how much your illness affects your everyday life? Select Number: 3 Total Score:: 3
[2018-12-21 08:21] VITALS: BP 130/72; BP 134/80
== END 2018-12-30 23:59 ==
LOC: CR 13:00
PROVIDERS: Family Provider Family Medicine; PCP Family Medicine; Referring Provider Internal Medicine Cardiovascular Disease; Visit Provider Internal Medicine Cardiovascular Disease
DX: I25.5 Ischemic cardiomyopathy (principal); I25.10 Atherosclerotic heart disease of native coronary artery without angina pectoris; Z95.5 Presence of coronary angioplasty implant and graft; I10 Essential (primary) hypertension; E78.5 Hyperlipidemia, unspecified; I25.2 Old myocardial infarction
CPT/HCPCS: 93005; 93798

== ENCOUNTER → 2019-01-10 13:09 | Outpatient (CLI) | payer MEDICARE, SELFPAY ==
[2018-10-10 13:17] VITALS: BMI 35.9
[2018-12-05 11:22] VITALS: BMI 34.6
[2019-01-06 15:08] VITALS: BMI 34.5
--- NOTE | 2019-01-10 13:45 | MRI_ITS ---
STUDY: BILATERAL BREAST MR WITHOUT AND WITH CONTRAST REASON FOR EXAM: Female, 58 years old. 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 History of left lumpectomy. History of breast cancer in mother and sister. TECHNIQUE: Multi-sequence multi-echo imaging of both breasts was performed with a dedicated breast coil. T1-weighted and T2-weighted images were performed before the administration of contrast. T1-weighted images were also performed after the administration of 16 IV Dotarem without complications. COMPARISON: Left diagnostic mammogram dated October 26, 2018. FINDINGS: RIGHT BREAST: The breast tissue is fatty with minimal background enhancement. There are no abnormal enhancing masses or areas of non-mass enhancement in the right breast. LEFT BREAST: The breast tissue is fatty with minimal background enhancement. There are clips present in the upper outer quadrant. There is a seroma cavity in the lateral aspect of the breast measuring 5.3 cm x 1.3 cm x 1.6 cm. There is minimal enhancement of the periphery of the seroma cavity with linear non-mass enhancement anterior and lateral to the seroma cavity measuring approximately 5.5 cm x 1.5 cm x 2.0 cm. This enhancement corresponds to the area of the prior lumpectomy. There are no focal masses present. There are no enlarged or abnormal lymph nodes. There is no abnormality in the visualized regions of the chest or liver. MRI/Breast Bilateral W/O and W IMPRESSION: Normal] breast. Seroma cavity in the lateral aspect of the left breast. Non-mass enhancement corresponding to the area of prior lumpectomy. No focal enhancing masses are seen in this area. CATEGORY: BIRADS Category 6: Known Biopsy-Proven Malignancy - Appropriate Action Should Be Taken. A letter regarding these results will be sent to the patient by the facility within 30 days. Electronically Signed: Carlitos Miranda MD at 11:46 EDT , Service support ,
== END ==
PROVIDERS: Family Provider Family Medicine; PCP Family Medicine; Referring Provider Internal Medicine Hematology & Oncology; Visit Provider Internal Medicine Hematology & Oncology
DX: D05.12 Intraductal carcinoma in situ of left breast (principal); Z80.3 Family history of malignant neoplasm of breast
CPT/HCPCS: 77049; A9575; A4216; C8908

== ENCOUNTER 2019-01-23 13:32 | Emergency (ER) | payer MEDICARE, SELFPAY ==
[2018-10-10 13:17] VITALS: BMI 35.9
[2019-01-06 15:08] VITALS: BMI 34.5
[2019-01-23 13:34] VITALS: BP 127/70; PULSE 67; RESP 18; TEMP 36.2; O2SAT 96; BMI 34.3
--- NOTE | 2019-01-23 14:35 | ED.RN ---
pt left without being seen
== END 2019-01-23 14:35 ==
LOC: ED 14:25
PROVIDERS: Emergency Provider Emergency Medicine; Family Provider Family Medicine; PCP Family Medicine
DX: E16.2 Hypoglycemia, unspecified (principal)

== ENCOUNTER 2019-01-25 13:00 | Outpatient (RCR) | payer MEDICARE, SELFPAY ==
[2018-10-10 13:17] VITALS: BMI 35.9
[2018-12-31 00:24] VITALS: BMI 36.1
[2018-12-31 01:13] VITALS: BP 130/72; BP 134/80
--- NOTE | 2019-01-20 07:36 | PCM.CR.ITP ---
Exercise - 60-Day Assessment - Visit Date of Eval: 01/20/19 Session #:: 20 - Stages of Change Stages of Change:: Action - Physician Prescribed Exercise Modalities: Treadmill, Airdyne, NuStep, SciFit Frequency (days/week): 3 Duration (Minutes):: 30-45 Intensity: 60-80% age predicted maximum heart rate reserve METs - Progression: 0.5-1.0 MET, RPE 11-14 WEEK: 4.5 Target Heart Rate:: 97-113 w/ max HR 116 - Hypertension Resting Blood Pressure:: 124/66 Peak Exercise Blood Pressure:: 138/80 Medication Changes:: Yes - change in insulin doses - Intervention Home Exercise/Activity Goal:: Moderate Exercise 30 min/day x 5 days/wk - Education Goals:: Warm-up, RPE OLIVIA Scale, S/S, Safe Exercise, Self-Monitoring - Exercise Program Goals Exercise Program Goals: Aerobic Activity >30 min Nutrition - Initial Assessment - Program Goals Nutrition Program Goals: LDL <70. Total Cholesterol <200. HDL >45. Triglycerides <150. HgbA1C <7%. BMI <25 - Diabetes Do you monitor your blood sugar at home?: Yes Nutrition - 60-Day Assessment - Program Goals Nutrition Program Goals: LDL <70. Total Cholesterol <200. HDL >45. Triglycerides <150. HgbA1C <7%. BMI <25 - Visit Date of Eval: 01/20/19 - Stages of Change Stages of Change:: Action - Lipids Has the patient seen the dietitian?: No - Diabetes Diabetes:: Yes Fasting blood glucose:: 105 - 67-340 FSBS; one ER visit due to hypoglycemic emergency Insulin: Yes Non-Insulin Dependent?: Yes - Weight Management Weight:: 170 lb - stable - Intervention Referral to dietitian:: Yes - educated on proper food selections DM Type II CAD Referral to Diabetic Clinic:: Yes - Patient could greatly benefit from proper diabetic/heart diet education Will attend diet classes:: Yes - Education Attended class for:: Signs & symptoms of hypoglycemia, Signs & symptoms of hyperglycemia, Relate diabetes to coronary artery disease, Healthy eating Tobacco - 60-Day Assessment - Program Goals Tobacco Program Goals: Complete smoking cessation. Attend education classes. Improve Knowledge Test score - Stage of Change Stages of Change:: Action - Learning Barriers Learning Barriers: Participates in education - Family Support Do you have family support?: Yes - Tobacco Use Tobacco Use: Non-smoker Do you use smokeless tobacco?: No - Intervention Smoking Cessation Referral:: No Education Schedule Given:: Yes - Education Attended class for:: Coronary artery disease, Risk factors, Sexuality, Medical compliance, Cardiac A&P, Angina signs & symptoms Psychosocial - Initial Assess - Target Goals Target Goals: Assess presence or absence of depression. Using a valid screening tool, maximizes coping skills. Positive support system - Psychosocial Test Tool Used:: HANDS Depression Questionnaire - Assistive Devices Fall Risk Assessed:: Yes Psychosocial - 60-Day Assess - Target Goals Target Goals: Assess presence or absence of depression. Using a valid screening tool, maximizes coping skills. Positive support system - Stages of Change Stages of Change:: Action - Psychosocial Test Tool Used:: HANDS Depression Questionnaire - Intervention PS - Interventions: Yes Attend Stress Management Classes, Yes Uses Stress Management Skills, No Referral to Mental Health, No Referral to [facility] Case Management, No Referral to Physician - Education Attended classes for:: Coping techniques, Signs & symptoms of depression, Stress management, Relaxation techniques - Patient/Program Goal Preventative Medication(s):: Aspirin, Clopidogrel, Beta josh, Statin/lipid - Assistive Devices Assistive Devices:: None Fall Risk Assessed:: Yes Patient Health Questionnaire 60-Day Re-eval Assessment 1. Little interest or pleasure in doing things: More than half the days 2. Feeling down, depressed, or hopeless: More than half the days 3. Trouble falling or staying asleep, or sleeping too much: Not at all 4. Feeling tired or having little energy: More than half the days 5. Poor appetite or overeating: Not at all 6. Feeling bad about yourself -- or that you are a failure or have let yourself or your family down: More than half the days 7. Trouble concentrating on things, such as reading the newspaper or watching television: Several days 8. Moving or speaking so slowly that other people could have noticed. Or the opposite - being so fidgety or restless that you have been moving around a lot more than usual: Not at all 9. Thoughts that you would be better off , or of hurting yourself in some way: Not at all How difficult have these problems made it for you to do your work, take care of things at home, or get along with other people?: Not difficult at all Total Score: 9 Self-Efficacy 60-Day Re-eval Assessment We would like to know how confident you are in doing certain activities. Please select your confidence level for:: Select your confidence level for the following using the scale 1-10 where 1 is not at all confident and 10 is totally confident. Your score is the average of all 6 responses. Fatigue: How confident are you that you can keep the fatigue caused by your disease from interfering with the things you want to do? Select Number: 5 Physical Discomfort or Pain: How confident are you that you can keep the physical discomfort or pain of your disease from interfering with the things you want to do? Select Number: 6 Emotional Distress: How confident are you that you can keep the emotional distress caused by your disease from interfering with the things you want to do? Select Number: 5 Other Symptoms or Health Problems: How confident are you that you can keep other symptoms or health problems from interfering with the things you want to do? Select Number: 5 Different Tasks and Activities: How confident are you that you can do the different tasks and activities needed to manage your health condition so as to reduce your need to see a doctor? Select Number: 7 Medication: How confident are you that you can do things other than just taking medication to reduce how much your illness affects your everyday life? Select Number: 8 Total Score:: 6
[2019-01-20 07:42] VITALS: BP 124/66; BP 138/80
== END 2019-01-29 23:59 ==
LOC: CR 13:00
PROVIDERS: Family Provider Family Medicine; PCP Family Medicine; Referring Provider Internal Medicine Cardiovascular Disease; Visit Provider Internal Medicine Cardiovascular Disease
DX: I25.5 Ischemic cardiomyopathy (principal); I25.10 Atherosclerotic heart disease of native coronary artery without angina pectoris; I10 Essential (primary) hypertension; E78.5 Hyperlipidemia, unspecified; I21.3 ST elevation (STEMI) myocardial infarction of unspecified site; Z95.5 Presence of coronary angioplasty implant and graft
CPT/HCPCS: 93798

== ENCOUNTER 2019-01-26 23:32 | Emergency (ER) | payer MEDICARE, SELFPAY ==
[2018-10-10 13:17] VITALS: BMI 35.9
[2019-01-26 23:34] VITALS: BP 159/90; PULSE 80; RESP 18; TEMP 36.6; O2SAT 94; BMI 33.4
[2019-01-26 23:51] LABS: Bedside Glucose > 500 mg/dL (70-110)
--- NOTE | 2019-01-27 00:01 | ED.DCSUM_ITS ---
- ER Visit Summary Date of Service: 01/27/19 Chief Complaint: High blood sugar History of Present Illness: The patient is a 58 F who presents with high blood sugar. She is undergoing radiation treatment for breast cancer. She also has had some mild shortness of breath and cough for about 6 weeks. She was started on prednisone 2 days ago. She took her insulin at home but her blood sugar was still 525 2 she presented here. She denies any abdominal pain nausea vomiting. Physical Examination: Afebrile blood pressure 159/90 Moist mucous membranes Heart regular rate and rhythm Lungs are clear Abdomen soft Alert Test Results: Labs notable for sodium 131, glucose 488, BUN 25. Chest x-ray shows no acute disease. Emergency Department Course and Treatment: Patient was treated with IV fluids. She was given subcutaneous insulin. Her repeat blood sugar is 362. Patient's hyperglycemia is radically related to steroid. She was advised to contact her physician today. She may need to increase her insulin while on the prednisone. She understands to return for new or worsening symptoms and was instructed on signs and symptoms to monitor for. Treatment Plan: [] Disposition: Discharge Impression: Diabetic hyperglycemia This note was generated with Data[employer]tax[employer] software. It may contain incorrect words, spelling, and punctuation that were not noted in review of the chart prior to signing ED Disposition - Plan for ED Patient: Instructions: Diabetic Hyperglycemia Referrals: Anup Quinones MD [Primary Care Provider] -
[2019-01-27] MEDS: 0.9% Normal Saline 1,000 ML 999 ML IV (00:17)
--- NOTE | 2019-01-27 00:19 | RAD_ITS ---
HISTORY: C/O COUGH AND CHEST CONGESTION X 3 WEEKSCURRENTLY UNDERGOING RADIATION THERAPY FOR BREAST CA. EXAM: XR Chest 2 Views: COMPARISON: November 04, 2018 FINDINGS: # of images incl. paperwork: 2 Cholecystectomy clips Lungs are clear. Heart is not enlarged. Kyphoscoliosis with multiple levels of degenerative disc disease and anterior bridging enthesophytes. Pulmonary vascularity is distinct. No effusions. RAD/Chest PA and Lateral IMPRESSION: No acute cardiopulmonary disease perceived. No change. at 0051 Reported and signed by: Toni Beyer MD Electronically Signed: Toni Beyer MD at 0:50 EDT Tel , Service support ,
[2019-01-27 00:27] LABS: Absolute Lymphocyte Count 0.76 X10^3/ul (0.83-4.51); Absolute Neutrophil Count 7.5 X10^3/uL (2.0-7.7); Basophil# 0.02 X10^3/uL; Basophil% 0.2 % (0-1); Eosinophil# 0.02 X10^3/uL; Eosinophils% 0.2 % (0-5); Hematocrit 40.5 % (37-47); Hemoglobin 14.2 g/dl (12.0-15.0); Lymphocyte # 0.76 X10^3/ul (4.0); Mean Corp Hgb Conc 35.1 g/gl (32-36); Mean Corpuscular Hgb 28.5 pg (27.0-32.0); Mean Corpuscular Volume 81.2 fL (81-99); Monocyte# 0.14 X10^3/uL; Monocyte% 1.7 % (0-10); Neutrophil # 7.48 X10^3/uL (2.7-7.7); Neutrophil % 88.7 % (47-70); Platelet Count 257 K/mm3 (150-450); RBC Distribution Width CV 12.5 % (11.6-14.6); RBC Distribution Width SD 36.7 fl (35.1-43.9); Red Blood Count 4.99 M/mm3 (4.2-5.4); White Blood Count 8.4 K/mm3 (4.4-11.0)
[2019-01-27 00:29] LABS: POSITIVE COUNT NO; POSITIVE DIFFERENTIAL NO; POSITIVE MORPHOLOGY NO
[2019-01-27 00:31] LABS: Anion Gap 8 (5-15); BUN 25 mg/dL (7-18); BUN/Creat Ratio 23.1 RATIO (10-20); Calcium,Total 9.1 mg/dL (8.5-10.1); Chloride 101 mmol/L (98-107); Creatinine, Serum 1.08 mg/dL (0.55-1.02); EST Glomerular Filtration Rate 55 mL/min (>60); Est Glom Filt Rate - Afr Amer 67 mL/min (>60); Estimated Creatinine Clearance 40.29 ml/min; Glucose 488 mg/dL (74-106); Potassium 4.6 mmol/L (3.5-5.1); Sodium Level 131 mmol/L (136-145)
--- NOTE | 2019-01-27 00:32 | ED.RN ---
GLUCOSE OF [address] COLLEEN MYERS
[2019-01-27] MEDS: Insulin Lispro 100 UNIT/ML INSULN.PEN 10 UNIT SC (01:05)
[2019-01-27 01:46] LABS: Bedside Glucose 420 mg/dL (70-110)
[2019-01-27 02:08] VITALS: BP 129/78; PULSE 69; RESP 16; O2SAT 95
--- NOTE | 2019-01-27 02:18 | ED.DEP ---
ED Disposition - Plan for ED Patient: Instructions: Diabetic Hyperglycemia Referrals: Anup Quinones MD [Primary Care Provider] -
[2019-01-27 02:25] LABS: Bedside Glucose 362 mg/dL (70-110)
[2019-01-27 02:42] VITALS: RESP 16
== END 2019-01-27 02:43 | disposition home or self-care (01) ==
PROVIDERS: Emergency Provider Emergency Medicine; Family Provider Family Medicine; PCP Family Medicine
DX: E11.65 Type 2 diabetes mellitus with hyperglycemia (principal); R05 Cough; I25.10 Atherosclerotic heart disease of native coronary artery without angina pectoris; I10 Essential (primary) hypertension; Z85.3 Personal history of malignant neoplasm of breast; E78.00 Pure hypercholesterolemia, unspecified; Z95.5 Presence of coronary angioplasty implant and graft
CPT/HCPCS: 71046; 80048; 82962; 85025; 96360; 99283; J7030; A4216

== ENCOUNTER 2019-03-01 13:00 | Outpatient (RCR) | payer MEDICARE, SELFPAY ==
[2018-10-10 13:17] VITALS: BMI 35.9
[2019-01-30 00:50] VITALS: BP 124/66; BP 138/80
--- NOTE | 2019-02-20 11:06 | CR.ITP_ITS ---
General Information - General Information Admitting Diagnosis: PCI with stenting - Education/Goals Barriers to Learning: None Cardiac Rehabilitation Goals: 1. Maintain the individual as the primary focus of care. 2. To improve the patient's quality of life. 3. Identification of cardiac risk factors and provide cardiac risk factor management. 4. Enhance the psychosocial status of the patient. 5. Reconditioning enough to allow the patient to resume customary activities. 6. Control symptoms of cardiac disease Scale for measuring improvement of personal goals: Enter appropriate number in Comments. 2 = Unchanged. 3 = Slightly Better. 4 = Moderate Improvement. 5 = Met my Goal Exercise - 90-Day Assessment - Visit Date of Eval: 02/20/19 Session #:: 28 - Stages of Change Stages of Change:: Action - Physician Prescribed Exercise Modalities: Treadmill, NuStep, SciFit Frequency (days/week): 3 Duration (Minutes):: 30-45 Intensity: 60-80% age predicted maximum heart rate reserve METs - Progression: 0.5-1.0 MET, RPE 11-14 WEEK: 4.5 Target Heart Rate:: 97-113 Max HR 118 - Hypertension Resting Blood Pressure:: 116/62 Peak Exercise Blood Pressure:: 170/84 - Intervention Home Exercise/Activity Goal:: Sitting Time <3 hrs/day - Education Goals:: Warm-up, RPE OLIVIA Scale, S/S, Safe Exercise, Self-Monitoring - Exercise Program Goals Exercise Program Goals: Aerobic Activity >30 min, B/P <130/80 Nutrition - Initial Assessment - Program Goals Nutrition Program Goals: LDL <70. Total Cholesterol <200. HDL >45. Triglycerides <150. HgbA1C <7%. BMI <25 - Diabetes Do you monitor your blood sugar at home?: Yes Nutrition - 90-Day Assessment - Program Goals Nutrition Program Goals: LDL <70. Total Cholesterol <200. HDL >45. Triglycerides <150. HgbA1C <7%. BMI <25 - Visit Date of Eval: 02/20/19 - Stages of Change Stages of Change:: Action - Diabetes Diabetes:: Yes Insulin: Yes Random Blood Glucose:: 201 - Weight Management Weight:: 76.657 kg - Intervention Referral to dietitian:: Yes Referral to Diabetic Clinic:: Yes Will attend diet classes:: Yes - Education Attended class for:: Signs & symptoms of hypoglycemia, Signs & symptoms of hyperglycemia, Relate diabetes to coronary artery disease, Healthy eating Tobacco - 90-Day Assessment - Program Goals Tobacco Program Goals: Complete smoking cessation. Attend education classes. Improve Knowledge Test score - Stage of Change Stages of Change:: Action - Learning Barriers Learning Barriers: Participates in education - Family Support Do you have family support?: Yes - Tobacco Use Tobacco Use: Non-smoker - Intervention Smoking Cessation Referral:: No Individual Education/Counseling:: No Education Schedule Given:: Yes - Education Attended class for:: Treating Heart Disease, How The Heart Works, What it means to have Heart Disease, How Coronary Artery Disease is Diagnosed, Heart Procedures, What Heart Medications Do, Risk Factors & Modifications, Living an Active Life, Nutrition, Emotions & Heart Disease, Stress Management & Relaxation, Sleep Disorders & Heart Disease Psychosocial - Initial Assess - Target Goals Target Goals: Assess presence or absence of depression. Using a valid screening tool, maximizes coping skills. Positive support system - Psychosocial Test Tool Used:: HANDS Depression Questionnaire - Assistive Devices Fall Risk Assessed:: Yes Psychosocial - 90-Day Assess - Target Goals Target Goals: Assess presence or absence of depression. Using a valid screening tool, maximizes coping skills. Positive support system - Stages of Change Stages of Change:: Action - Psychosocial Test Tool Used:: HANDS Depression Questionnaire - Intervention PS - Interventions: Yes Attend Stress Management Classes, Yes Uses Stress Management Skills, No Referral to Mental Health, No Referral to [facility] Case Management, No Referral to Physician - Education Attended classes for:: Coping techniques, Signs & symptoms of depression, Stress management, Relaxation techniques - Assistive Devices Assistive Devices:: None Fall Risk Assessed:: Yes Patient Health Questionnaire 90-Day Re-eval Assessment 1. Little interest or pleasure in doing things: More than half the days 2. Feeling down, depressed, or hopeless: More than half the days 3. Trouble falling or staying asleep, or sleeping too much: Not at all 4. Feeling tired or having little energy: More than half the days 5. Poor appetite or overeating: Not at all 6. Feeling bad about yourself -- or that you are a failure or have let yourself or your family down: More than half the days 7. Trouble concentrating on things, such as reading the newspaper or watching television: Several days 8. Moving or speaking so slowly that other people could have noticed. Or the opposite - being so fidgety or restless that you have been moving around a lot more than usual: Not at all 9. Thoughts that you would be better off , or of hurting yourself in some way: Not at all How difficult have these problems made it for you to do your work, take care of things at home, or get along with other people?: Not difficult at all Total Score: 9 Self-Efficacy 90-Day Re-eval Assessment We would like to know how confident you are in doing certain activities. Please select your confidence level for:: Select your confidence level for the following using the scale 1-10 where 1 is not at all confident and 10 is totally confident. Your score is the average of all 6 responses. Fatigue: How confident are you that you can keep the fatigue caused by your disease from interfering with the things you want to do? Select Number: 5 Physical Discomfort or Pain: How confident are you that you can keep the physical discomfort or pain of your disease from interfering with the things you want to do? Select Number: 6 Emotional Distress: How confident are you that you can keep the emotional distress caused by your disease from interfering with the things you want to do? Select Number: 5 Other Symptoms or Health Problems: How confident are you that you can keep other symptoms or health problems from interfering with the things you want to do? Select Number: 5 Different Tasks and Activities: How confident are you that you can do the different tasks and activities needed to manage your health condition so as to reduce your need to see a doctor? Select Number: 7 Medication: How confident are you that you can do things other than just taking medication to reduce how much your illness affects your everyday life? Select Number: 8 Total Score:: 6
[2019-02-20 11:13] VITALS: BP 116/62; BP 170/84
== END 2019-03-01 23:59 ==
LOC: CR 13:00
PROVIDERS: Family Provider Family Medicine; PCP Family Medicine; Referring Provider Internal Medicine Cardiovascular Disease; Visit Provider Internal Medicine Cardiovascular Disease
DX: I25.5 Ischemic cardiomyopathy (principal); I25.10 Atherosclerotic heart disease of native coronary artery without angina pectoris; I10 Essential (primary) hypertension; E78.5 Hyperlipidemia, unspecified; I21.3 ST elevation (STEMI) myocardial infarction of unspecified site; Z95.5 Presence of coronary angioplasty implant and graft
CPT/HCPCS: 93798

== ENCOUNTER 2019-03-10 13:00 | Outpatient (RCR) | payer MEDICARE, SELFPAY ==
[2018-10-10 13:17] VITALS: BMI 35.9
[2019-03-02 00:49] VITALS: BP 116/62; BP 170/84
== END 2019-04-01 23:59 ==
LOC: CR 13:00
PROVIDERS: Family Provider Family Medicine; PCP Family Medicine; Referring Provider Internal Medicine Cardiovascular Disease; Visit Provider Internal Medicine Cardiovascular Disease
DX: I25.5 Ischemic cardiomyopathy (principal); I25.10 Atherosclerotic heart disease of native coronary artery without angina pectoris; I10 Essential (primary) hypertension; E78.5 Hyperlipidemia, unspecified; I21.3 ST elevation (STEMI) myocardial infarction of unspecified site; Z95.5 Presence of coronary angioplasty implant and graft
CPT/HCPCS: 93798

== ENCOUNTER 2019-03-14 21:20 | Inpatient (IN) | payer MEDICARE, SELFPAY ==
[2018-10-10 13:17] VITALS: BMI 35.9
[2019-03-14] VITALS (8 sets, daily range): BP systolic 118–169; BP diastolic 82–94; PULSE 55–74; RESP 14–25; TEMP 36.6–37; O2SAT 96–98; BMI 34.4; BMI 33.7; BMI 33.8
--- NOTE | 2019-03-14 21:27 | EKG12_ITS ---
Test Reason : CP Blood Pressure : / mmHG Vent. Rate : 076 BPM Atrial Rate : 076 BPM P-R Int : 150 ms QRS Dur : 084 ms QT Int : 382 ms P-R-T Axes : 046 036 044 degrees QTc Int : 429 ms Normal sinus rhythm Normal ECG Confirmed by KEO RIBERA ([id number]), metropolitan editor ALEJANDRINA BRYAN ([id number]) on 03/16/2019 2:26:45 PM Referred By: TRISTA Confirmed By:KEO RIBERA
--- NOTE | 2019-03-14 21:30 | RAD_ITS ---
STUDY: X-RAY CHEST REASON FOR EXAM: Female, 58 years old. Chest pain TECHNIQUE: Single AP portable view of the chest. COMPARISON: None. FINDINGS: The lungs are clear and expanded. There is no demonstrated pleural abnormality. Normal size heart. Normal mediastinum and oj. Normal visualized pulmonary arteries. Normal visualized aortic arch and descending thoracic aorta. There are diffuse degenerative changes of the visualized thoracic spine. There is degenerative osteoarthritis of the bilateral shoulders. There is no demonstrated abnormality of the visualized soft tissue structures of the upper abdomen. RAD/Chest 1 View (Portable) IMPRESSION: No acute chest disease. Electronically Signed: Randal Ramírez MD at 21:40 EDT , Service support ,
--- NOTE | 2019-03-14 21:31 | ED.DCSUM_ITS ---
History of Present Illness Chief Complaint: Chest Pain Onset: Hours - Hour prior to presentation Context: Sudden Onset Timing: Continuous Quality: Pain anterior left chest radiating to the left shoulder and arm Location: Left chest Current Severity: Mild Maximum Severity: Severe Worsened by: Nothing Relieved by: Nothing Associated Symptoms: Dyspnea, nausea and diaphoresis Narrative: Patient is a middle-age woman with history of type 1 diabetes x13 years and known coronary disease. She had cardiac catheterization with stent mid LAD lesion. There is also 70% lesion of the circumflex and 2 lesions noted in the mid and proximal right coronary artery. The LAD lesion was stented. That was deemed to be the culprit of her symptoms. Patient presents with pain similar to pain she experienced September. This occurred at rest. She did have associated symptoms. She still having pain. She does have risk factors. She denies leg pain, swelling discoloration. She denies reflux, black or maroon stool. She does report nasal congestion. She denies fever or chills. Prior similar symptoms: Yes - With cardiac chest pain Recent Illness/Hospitalization: Yes - September 2018 - Past Medical History (1) Atherosclerosis of coronary artery of [place] heart with angina pectoris Status: Acute Comment: PCI-LIZETTE-Mid LAD w/ 2.5 x 28 mm and 2.5 x 12 mm Synergy Stent 10/10/18 (2) Breast cancer, left breast Status: Acute (3) Essential (primary) hypertension Status: Chronic (4) Hyperlipidemia Status: Chronic (5) Ischemic cardiomyopathy Status: Chronic (6) STEMI (ST elevation myocardial infarction) Status: Chronic Past Medical History - Allergies and Home Meds Allergies/Adverse Reactions: Allergies calcium carbonate [From Florical] Allergy (Verified 03/14/19 21:22) Swelling codeine Allergy (Verified 03/14/19 21:22) Swelling egg Allergy (Verified 03/14/19 21:22) Unknown fish derived Allergy (Verified 03/14/19 21:22) Unknown nitrofurantoin macrocrystalline [From Macrodantin] Allergy (Verified 03/14/19 21:22) Swelling oxycodone HCl [From Percocet] Allergy (Verified 03/14/19 21:22) Hives propoxyphene napsylate [From Darvocet-N 100] Allergy (Verified 03/14/19 21:22) Hives sodium fluoride [From Florical] Allergy (Verified 03/14/19 21:22) Swelling Sulfa (Sulfonamide Antibiotics) Allergy (Verified 03/14/19 21:22) Unknown tamoxifen Adverse Reaction (Verified 03/14/19 21:45) Hives Primary Care Physician: Anup Quinones MD [Primary Care Provider] - Prior records reviewed: Yes Surgical History: cholecystectomy, hysterectomy - CRIS/BSO for endometriosis and bleeding, - - ear surgery and eye surgery Lives: Alone Smoking Status: Never smoker Alcohol: None Drugs: None - Family History Maternal Family History: Family History (Last Reviewed 11/07/18 @ 14:53 by sOkar Olsen MD) Sister Heart disease Breast cancer Mother Heart disease Breast cancer Diabetes Father Heart disease Diabetes Family History: Reports: Cancer, Diabetes, Heart Disease Paternal Family History: Family History (Last Reviewed 11/07/18 @ 14:53 by Oskar Olsen MD) Sister Heart disease Breast cancer Mother Heart disease Breast cancer Diabetes Father Heart disease Diabetes Family History: Reports: Diabetes, Heart Disease Sibling Family History: Family History (Last Reviewed 11/07/18 @ 14:53 by Oskar Olsen MD) Sister Heart disease Breast cancer Mother Heart disease Breast cancer Diabetes Father Heart disease Diabetes Family History: Reports: Cancer, Heart Disease Review of Systems General: Denies: Chills, Fever, Malaise, Subjective, Sweats Eyes: Denies: Visual changes - bilaterally, Blurred Vision - bilaterally, Diplopia ENT: Denies: Rhinorrhea, Sore throat Cardiovascular: Reports: Chest pain. Denies: Palpitations, Heart racing, -, - Respiratory: Reports: Dyspnea. Denies: Cough, Sputum, Dyspnea on exertion, Orthopnea, Paroxysmal nocturnal dyspnea, -, - Gastrointestinal: Reports: Nausea. Denies: Abdominal pain, Vomiting, Diarrhea, Constipation, Melena, Hematochezia, -, - Genitourinary: Denies: Dysuria, Hematuria, Frequency Musculoskeletal: Denies: Back pain, Extremity Pain Skin: Denies: Rash, Wounds Neurological: Denies: Headache, Weakness, Numbness Hematologic: Denies: Easy bruising, Easy bleeding Physical Exam Vital Signs/Narrative: Vital Signs Temp Pulse Resp BP Pulse Ox 03/14/19 21:22 98.5 F 74 22 H 169/94 H 98 Inital Vital Signs reviewed: Yes General: Well nourished, Well developed, No Acute Distress Head: Normocephalic, Atraumatic Eyes: Perrl, EOMI ENT: Moist mucous membranes, No rhinorrhea Neck: Supple, Nontender, No lymphadenopathy, No JVD Cardiovascular: Regular rate, Regular rhythm, No murmurs, Normal S1, Normal S2 Respiratory: No distress, CTA bilaterally, Chest nontender Abdomen: Soft, Nontender, Nondistended, Normal bowel sounds, No masses Back: Nontender, Normal Inspection Extremities: Nontender, No edema, - - There is no asymmetry, discoloration of swelling lower extremities. There is no palpable cords, leg vein distention or tenderness on the distribution of deep venous system. Skin: Normal color, No rash Neurological: Alert, Oriented x3, Cranial nerves II-XII grossly intact, Normal Strength, Normal Sensation, Normal DTR Psychological: Normal affect, Normal Mood Diagnostic/Tx/Re-eval Chest X-Ray - ED: 1 View, Read by ED Physician, Normal, Heart, Lungs, Mediastinum, Bony Structures, No Acute Disease, Chronic Changes, - - X-ray read at 2140 Impressions Chest X-Ray 03/14/19 21:30 IMPRESSION: No acute chest disease. Electronically Signed: Randal Ramírez MD at 21:40 EDT , Service support , 03/14/19 21:30 Chest 1 View (Portable) [RAD] Stat Laboratory Results 03/14/19 03/14/19 21:25 21:25 WBC 5.2 RBC 5.13 Hgb 14.9 Hct 43.4 MCV 84.6 MCH 29.0 MCHC 34.3 RDW Std Deviation 36.8 RDW Coeff of Sanjay 12.0 Plt Count 220 MPV 10.4 Immature Gran % (Auto) 0.200 Neut % (Auto) 60.4 Lymph % (Auto) 25.8 [place] % (Auto) 8.0 Eos % (Auto) 5.0 Baso % (Auto) 0.6 Absolute Neuts (auto) 3.1 Absolute Lymphs (auto) 1.33 Nucleated RBC % 0 Sodium 134 L Potassium 4.0 Chloride 103 Carbon Dioxide 25.0 Anion Gap 6 BUN 14 Creatinine 0.90 Estim Creat Clear Calc 82.13 Est GFR (MDRD) Af Amer 82 Est GFR (MDRD) Non-Af 68 BUN/Creatinine Ratio 15.5 Glucose 375 H Calcium 8.7 Troponin I < 0.015 Glucose is elevated at 375 with a normal CO2 and anion gap. First troponin is normal. - EKG Initial EKG Interpretation: Sinus Rhythm - Circular rate is 75. [place] interval is 150 ms. QRS durations 84 ms. QT duration is 302 ms. [place] is normal. T waves are symmetrically inverted in V1 and V2 which they were not on EKG dated December 02, 2018 . This raises concern for acute ischemia. There is possibly 0.[address] depression in V2. - Medical Decision Making With risk factors coronary disease known coronary disease and multivessel disease based on cath October 10, 2018 concern patient presentation is consistent with angina. EKG, chest x-ray and appropriate blood work was obtained. Differential would include unstable angina, non-STEMI, STEMI, noncardiac chest pain, GERD Patient states she took aspirin this morning and was not administered additional aspirin here. She states she is combined with her Plavix. Nitro series was ordered. Reports one nitro alleviated her chest pain. Dr. Piper who is on-call for cardiology was paged. Will discuss anticoagulation. He would like 1 mg/kg of Lovenox and agreed with 1 inch of Nitropaste. Hospitalist has been paged for admission and cardiology was seen in the morning. Will administer insulin for elevated blood sugar. - Critical Care Time Critical care time (excluding procedures): 30-74 minutes - 33 minutes, Discussing w/Patient &/or Family/Materials Assistant, Discussing w/Consultants, Arranging Admission or Transfer ED Disposition - Plan for ED Patient: Disposition: Acute Care Hospital [facility] [place] [facility] Diagnosis: Unstable angina pectoris due to coronary arteriosclerosis, Hyperglycemia due to type 1 diabetes mellitus Referrals: Anup Quinones MD [Primary Care Provider] -
[2019-03-14 21:32] LABS: Absolute Lymphocyte Count 1.33 X10^3/uL (0.83-4.51); Absolute Neutrophil Count 3.1 X10^3/uL (2.0-7.7); Basophil# 0.03 X10^3/uL; Basophil% 0.6 % (0-1); Eosinophil# 0.26 X10^3/uL; Hematocrit 43.4 % (37-47); Hemoglobin 14.9 g/dL (12.0-15.0); Lymphocyte # 1.33 X10^3/ul (4.0); Lymphocyte % 25.8 % (19-41); Mean Corp Hgb Conc 34.3 g/dL (32-36); Mean Corpuscular Volume 84.6 fL (81-99); Mean Platelet Vol. 10.4 fl (6.2-12.0); Monocyte# 0.41 X10^3/uL; NRBC Flagged by Analyzer 0 % (0-5); Neutrophil # 3.11 X10^3/uL (2.7-7.7); Neutrophil % 60.4 % (47-70); Platelet Count 220 K/mm3 (150-450); RBC Distribution Width SD 36.8 fl (35.1-43.9); Red Blood Count 5.13 M/mm3 (4.2-5.4); White Blood Count 5.2 K/mm3 (4.4-11.0)
[2019-03-14] MEDS: Nitroglycerin SL (ED/IMG/CATH) 0.4 MG TABLET SUBLINGUAL (21:41)
[2019-03-14 21:55] LABS: Anion Gap 6 (5-15); BUN 14 mg/dL (7-18); BUN/Creat Ratio 15.5 RATIO (10-20); Calcium,Total 8.7 mg/dL (8.5-10.1); Chloride 103 mmol/L (98-107); EST Glomerular Filtration Rate 68 mL/min (>60); Est Glom Filt Rate - Afr Amer 82 mL/min (>60); Estimated Creatinine Clearance 82.13 ml/min; Glucose 375 mg/dL (74-106); Sodium Level 134 mmol/L (136-145)
--- NOTE | 2019-03-14 22:02 | HP.PCM_ITS ---
History of Present Illness Date of Admission: 03/14/19 Chief Complaint: chest pain The patient is a 58 year old F with past medical history as listed. She was admitted through the ED on 03/14/2019 with a complaint of chest pain which woke her up on the afternoon of admission. Chest pain was left-sided, radiated to her neck with associated with mild palpitations and some shortness of breath at rest. States chest pain was just like when she had her heart attack in September 2018. She had drug-eluting stent placement in the mid LAD on 10/10/2018. She was also noted to have 70% lesion of the circumflex artery and 2 lesions noted in the mid and proximal RCA but these were not stented. She denied any fever or chills but admitted some nausea, denied any vomiting or diarrhea. Review of systems otherwise negative. Labs and vitals reviewed. Vitals in the ED was stable and chemistry was essentially unremarkable. Initial troponin was negative and CBC was also unremarkable. Chest x-ray showed no acute cardiopulmonary process. EKG showed normal sinus rhythm with T wave inversions in lead I and II which were chronic. Chest pain was relieved by nitro. She has been admitted to be managed for unstable angina. [] Past Medical History Past Medical History (Chronic Problems): Chronic Problems (Last Reviewed 11/07/18 @ 14:53 by Oskar Olsen MD) Ischemic cardiomyopathy (Chronic) Atherosclerosis of coronary artery of [place] heart without angina pectoris (Chronic) PCI-LIZETTE-Mid LAD w/ 2.5 x 28 mm and 2.5 x 12 mm Synergy Stent 10/10/18 Essential (primary) hypertension (Chronic) Hyperlipidemia (Chronic) STEMI (ST elevation myocardial infarction) (Chronic 10/10/18) Medical History: Medical History (Last Reviewed 11/07/18 @ 14:53 by Oskar Olsen MD) Breast cancer, left breast (Acute) C50.912 Ischemic cardiomyopathy (Chronic) I25.5 Atherosclerosis of coronary artery of [place] heart without angina pectoris (Chronic) I25.10 PCI-LIZETTE-Mid LAD w/ 2.5 x 28 mm and 2.5 x 12 mm Synergy Stent 10/10/18 Essential (primary) hypertension (Chronic) I10 Hyperlipidemia (Chronic) E78.5 STEMI (ST elevation myocardial infarction) (Chronic) Onset Date: 10/10/18 I21.3 Abnormal mammogram R92.8 Recent abnormal mammogram-scheduled for breast biopsy later this month 10/18 Asthma J45.909 Chronic kidney disease, stage 3 N18.3 Depression F32.9 Fibromyalgia M79.7 Hyponatremia E87.1 Learning disabilities F81.9 Memory loss R41.3 Obesity E66.9 Rheumatoid arthritis M06.9 Type 2 diabetes mellitus E11.9 Allergies calcium carbonate [From Florical] Allergy (Verified 03/14/19 21:22) Swelling codeine Allergy (Verified 03/14/19 21:22) Swelling egg Allergy (Verified 03/14/19 21:22) Unknown fish derived Allergy (Verified 03/14/19 21:22) Unknown nitrofurantoin macrocrystalline [From Macrodantin] Allergy (Verified 03/14/19 21:22) Swelling oxycodone HCl [From Percocet] Allergy (Verified 03/14/19 21:22) Hives propoxyphene napsylate [From Darvocet-N 100] Allergy (Verified 03/14/19 21:22) Hives sodium fluoride [From Florical] Allergy (Verified 03/14/19 21:22) Swelling Sulfa (Sulfonamide Antibiotics) Allergy (Verified 03/14/19 21:22) Unknown tamoxifen Adverse Reaction (Verified 03/14/19 21:45) Hives Home Medications: Ambulatory Orders Medication Instructions Recorded Albuterol Inhaler [Ventolin Hfa] 2 puff INHALATION Q6H PRN PRN 11/10/16 Citalopram Hydrobromide [Celexa] 20 mg PO DAILY 11/10/16 Fluticasone/Salmeterol [Advair 1 puff INHALATION BID 11/10/16 250/50 Mcg Diskus] Insulin NPH Human Isophane 18 unit SQ BID 11/10/16 [Humulin N] Insulin Regular, Human [Humulin R] 10 unit SUBCUT TID 11/10/16 Polyethylene Glycol 3350 [Miralax] 17 gm PO DAILY PRN 11/10/16 Trazodone HCl 200 mg PO QHS 11/10/16 Aspirin E.C. [Ecotrin] 81 mg PO DAILY@0800 tab 10/12/18 isosorbide mononitrate ER 60 mg 60 mg PO BID #60 tab 12/02/18 tablet,extended release 24 hr buspirone 5 mg tablet 5 mg PO DAILY 30 Days #60 tab 01/06/19 clopidogrel 75 mg tablet 75 mg PO DAILY #90 tab 01/19/19 Rosuvastatin Calcium 40 mg PO DAILY 01/26/19 carvedilol 6.25 mg tablet 6.25 mg PO BID #60 tab 02/27/19 Anastrozole [Arimidex] 1 mg PO DAILY 03/14/19 Lisinopril 2.5 mg PO BID 03/14/19 Surgical History: Surgical History (Last Reviewed 11/07/18 @ 14:53 by Oskar Olsen MD) History of coronary artery stent placement (Resolved) Onset Date: 10/10/18 Z95.5 PCI-LIZETTE-Mid LAD w/ 2.5 x 28 mm and 2.5 x 12 mm Synergy Stent 10/10/18 History of hysterectomy Z90.710 Hx of cholecystectomy Z90.49 Surgical History: cholecystectomy, hysterectomy - CRIS/BSO for endometriosis and bleeding, - - ear surgery and eye surgery Psychiatric History: Depression 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 [employer]OL [employer] TECH History: endometriosis Lives: Alone Smoking Status: Never smoker Alcohol: None Drugs: None - *Family History Maternal Family History: Family History (Last Reviewed 11/07/18 @ 14:53 by Oskar Olsen MD) Sister Heart disease Breast cancer Mother Heart disease Breast cancer Diabetes Father Heart disease Diabetes History Items: Cancer, Diabetes, Heart Disease Paternal Family History: Family History (Last Reviewed 11/07/18 @ 14:53 by Oskar Olsen MD) Sister Heart disease Breast cancer Mother Heart disease Breast cancer Diabetes Father Heart disease Diabetes History Items: Diabetes, Heart Disease Sibling Family History: Family History (Last Reviewed 11/07/18 @ 14:53 by Oskar Olsen MD) Sister Heart disease Breast cancer Mother Heart disease Breast cancer Diabetes Father Heart disease Diabetes History Items: Cancer, Heart Disease Review of Systems Constitutional: Denies: Chills, Fever, Night Sweats, Weight Change Eyes: Denies: Blurred vision HEENT: Denies: Head Aches, Sinus Congestion, Sinus Drainage Cardiovascular: Reports: Chest Pain. Denies: Chest Pressure, Chest Tightness, Edema, Heaviness, Light Headedness, Orthopnea, Palpitations, Paroxysmal Noc. Dyspnea, Syncope Respiratory: Denies: Cough, Shortness of Breath, Shortness of breath at rest, Shortness of breath upon exertion, Sputum production Gastrointestinal: Denies: Abdominal Pain, Nausea, Vomiting Genitourinary: Denies: Dysuria Musculoskeletal: Denies: Joint Pain, Joint Tenderness Skin: Denies: Rash, Wounds Neurological: Denies: Numbness, Tingling, Focal weakness Psychiatric: Denies: Anxiety, Depression, Homicidal Ideations, Suicidal Ideations Hematologic/ Lymphatic: Denies: Easy Bruising, Easy Bleeding VTE Information - Inpt Only VTE Present on Admission: No VTE Pharm Prophylaxis ordered?: Yes Patient Problems: Active and Suspected Problems (Last Reviewed 11/07/18 @ 14:53 by Oskar Olsen MD) Unstable angina pectoris due to coronary arteriosclerosis (Acute) Hyperglycemia due to type 1 diabetes mellitus (Acute) - Physical Exam General: Alert, Oriented x3, Cooperative, No apparent distress HEENT: Atraumatic, PERRLA, EOMI, Normocephalic Oral: Moist Mucosa Neck: Supple, No JVD, Negative Carotid Bruits Lungs: Clear to auscultation, Normal air movement, No rhonchi, No wheeze, No rales Cardiovascular: Regular rate, Regular Rhythm, Normal S1, Normal S2, No murmurs Abdomen: Bowel Sounds Present, Soft, Non Tender, Non-Distended Extremities: No clubbing, No cyanosis, No edema, Capillary Refill Less than 3 Seconds Skin: No rashes, No breakdown Musculoskeletal: No Tenderness to Palpation of Joints or Extremities Lymphatic: No Cervical, Supraclavicular, or Inguinal Adenopathy Neurological: Cranial nerves II-XII grossly intact, Neuro grossly intact, Motor Exam 5/5 strength throughout Psych/Mental Status: Anxious, Flat Affect Vital Signs Temp Pulse Resp BP Pulse Ox 98.5 F 72 25 H 118/88 H 96 03/14/19 21:22 03/14/19 21:48 03/14/19 21:48 03/14/19 21:48 03/14/19 21:48 Oxygen Delivery Method Room Air Weight: 170 lb 6.677 oz Body Mass Index (BMI) 34.4 Finger Stick Blood Glucose 362 Laboratory Tests Past 24 Hrs 03/14/19 03/14/19 21:25 21:25 WBC 5.2 RBC 5.13 Hgb 14.9 Hct 43.4 MCV 84.6 MCH 29.0 MCHC 34.3 RDW Std Deviation 36.8 RDW Coeff of Sanjay 12.0 Plt Count 220 MPV 10.4 Immature Gran % (Auto) 0.200 Neut % (Auto) 60.4 Lymph % (Auto) 25.8 [place] % (Auto) 8.0 Eos % (Auto) 5.0 Baso % (Auto) 0.6 Absolute Neuts (auto) 3.1 Absolute Lymphs (auto) 1.33 Nucleated RBC % 0 Sodium 134 L Potassium 4.0 Chloride 103 Carbon Dioxide 25.0 Anion Gap 6 BUN 14 Creatinine 0.90 Estim Creat Clear Calc 82.13 Est GFR (MDRD) Af Amer 82 Est GFR (MDRD) Non-Af 68 BUN/Creatinine Ratio 15.5 Glucose 375 H Calcium 8.7 Troponin I < 0.015 Diagnostic Data Chest X-Ray 03/14/19 21:30 IMPRESSION: No acute chest disease. Electronically Signed: Randal Ramírez MD at 21:40 EDT , Service support , Assessment/Plan All Active Problems (Last Reviewed 11/07/18 @ 14:53 by Oskar Olsen MD) Unstable angina pectoris due to coronary arteriosclerosis (Acute) Hyperglycemia due to type 1 diabetes mellitus (Acute) Breast cancer, left breast (Acute) Dyspnea (Acute) Atherosclerosis of coronary artery of [place] heart with angina pectoris (Acute) History of coronary artery stent placement (Resolved 10/10/18) 58 y/o admitted with a complaint of left sided chest pain radiating to the neck 1. Unstable angina * admit to PCU with telemetry * initial troponin negative, and EKG showed T wave inversions in leads V1-V2, w hich were not new * had STEMI in 10/18, with stent placement in mid LCA; 70% she also noted and complex artery and lesions noted in proximal and mid RCA but these were not stented. * Cycle troponin. * X-ray showed no acute cardiopulmonary process. * Nitropaste. Sublingual nitroglycerin as needed. Given 1 dose of therapeutic Lovenox by ED after discussing with cardiology. * Continue Plavix and statin * Consult cardiology. * 2. CAD status post stent in LAD: * This was done 2018 as documented on . On aspirin, Plavix and statin. * Also on Imdur, and carvedilol * 3. Type 1 diabetes mellitus: On NPH insulin 18 units twice daily and regular insulin 10 units 3 times daily. Insulin sliding scale. Dr. Spencer at bedtime. 4. Depression history of learning difficulties: On the buspirone and Celexa. 5. History of left breast cancer: Recently completed treatment. On anastrozole 1 mg daily. 6. History of rheumatoid arthritis: stable 7. Hyperlipidemia: On Crestor. DVT prophylaxis: Received therapeutic Lovenox as under 1 Code Visit Inpatient E&M: 43515 Init Hosp L3
[2019-03-14] MEDS: Enoxaparin 80 MG/0.8 ML Syringe SC (22:21)
[2019-03-14] MEDS: Nitroglycerin Oint 1 INCH PACKET TRANSDERM. (22:21)
--- NOTE | 2019-03-14 22:37 | EKG12_ITS ---
Test Reason : ADMIT Blood Pressure : / mmHG Vent. Rate : 061 BPM Atrial Rate : 061 BPM P-R Int : 146 ms QRS Dur : 086 ms QT Int : 432 ms P-R-T Axes : 045 027 044 degrees QTc Int : 434 ms Normal sinus rhythm Normal ECG When compared with ECG of 02-DEC-2018 13:38, No significant change was found Confirmed by KEO RIBERA ([id number]), editor dictionary ALEJANDRINA BRYAN ([id number]) on 03/16/2019 2:55:58 PM Referred By: TOYA Confirmed By:KEO RIBERA
[2019-03-15] VITALS (15 sets, daily range): BP systolic 101–150; BP diastolic 63–81; PULSE 58–74; RESP 14–17; TEMP 36.4–36.8; O2SAT 95–97
[2019-03-15 03:40] LABS: Absolute Neutrophil Count 2.5 X10^3/uL (2.0-7.7); Basophil# 0.05 X10^3/uL; Eosinophils% 6.1 % (0-5); Hemoglobin 14.3 g/dL (12.0-15.0); Lymphocyte % 32.7 % (19-41); Mean Corpuscular Hgb 29.1 pg (27.0-32.0); Mean Corpuscular Volume 85.4 fL (81-99); Mean Platelet Vol. 10.3 fl (6.2-12.0); Monocyte% 8.2 % (0-10); NRBC Flagged by Analyzer 0 % (0-5); Neutrophil # 2.54 X10^3/uL (2.7-7.7); Neutrophil % 51.8 % (47-70); Platelet Count 216 K/mm3 (150-450); RBC Distribution Width CV 12.1 % (11.6-14.6); RBC Distribution Width SD 37.7 fl (35.1-43.9); Red Blood Count 4.92 M/mm3 (4.2-5.4); White Blood Count 4.9 K/mm3 (4.4-11.0)
[2019-03-15 03:55] LABS: Anion Gap 7 (5-15); BUN 13 mg/dL (7-18); BUN/Creat Ratio 18.3 RATIO (10-20); Calcium,Total 8.4 mg/dL (8.5-10.1); Chloride 106 mmol/L (98-107); Creatinine, Serum 0.71 mg/dL (0.55-1.02); EST Glomerular Filtration Rate 89 mL/min (>60); Est Glom Filt Rate - Afr Amer 108 mL/min (>60); Estimated Creatinine Clearance 102.22 ml/min; Glucose 295 mg/dL (74-106); Potassium 3.9 mmol/L (3.5-5.1); Sodium Level 138 mmol/L (136-145)
--- NOTE | 2019-03-15 05:55 | EKG12_ITS ---
Test Reason : AM Blood Pressure : / mmHG Vent. Rate : 061 BPM Atrial Rate : 061 BPM P-R Int : 150 ms QRS Dur : 086 ms QT Int : 434 ms P-R-T Axes : 057 047 045 degrees QTc Int : 436 ms Normal sinus rhythm Normal ECG When compared with ECG of 14-MAR-2019 22:43, MANUAL COMPARISON REQUIRED, DATA IS UNCONFIRMED Confirmed by KEO RIBERA ([id number]), publication editor ALEJANDRINA BRYAN ([id number]) on 03/16/2019 2:57:48 PM Referred By: TOYA Confirmed By:KEO RIBERA
[2019-03-15] MEDS: Carvedilol 6.25 MG Tablet PO (06:28)
[2019-03-15] MEDS: Isosorbide Mononitrate 60 MG Tablet PO (06:28)
[2019-03-15] MEDS: Lisinopril 2.5 MG Tablet PO (06:28)
[2019-03-15] MEDS: Aspirin E.C. 81 MG Tablet PO (06:29)
[2019-03-15] MEDS: Clopidogrel Bisulfate 75 MG Tablet PO (06:30)
--- NOTE | 2019-03-15 06:57 | PCM.PN.BLA ---
Progress Note The patient is a 58-year-old female with a past medical history of ischemic cardiomyopathy, CAD with history of PCI/LIZETTE to the mid LAD, hypertension, diastolic dysfunction, obesity, hyperlipidemia, fibromyalgia, reported rheumatoid arthritis but on no medications, renal failure stage III, diabetes mellitus type 2, depression, asthma and hx of STEMI in September of 2018 who presented to the emergency department at [facility] on 03/14/2019 complaining of chest pain that awoke her that afternoon while taking a nap. The pain radiated to her neck and was associated with palpitations and shortness of breath. When she had the stent placed in the mid LAD for STEMI on 10/10/2018 she was also noted to have a 70% lesion of the circumflex and a 60% stenosis of proximal RCA. Echocardiogram prior to discharge in September showed a 45 to 50% ejection fraction with stage I diastolic dysfunction. She was supposed to be brought back for a possible staged intervention to the RCA and LCx. Vital signs at presentation to the emergency department were temperature 98.5, pulse rate 74, blood pressure 169/94, respiratory rate 22 and she was 98% saturated on room air. CBC was normal. Sodium was mildly decreased at 134. Random glucose was 375 and troponin was less than 0.015. Chest x-ray showed no pulmonary vascular congestion, pleural effusions or infiltrates. EKG showed normal sinus rhythm with T wave inversions in lead I and II which were present on prior EKGs. She was given nitroglycerin in the emergency department and admitted to a monitored bed on PCU. Dr. Piper was consulted. All events of the past 24 hours of been reviewed. She is afebrile. Blood pressures are erratic and have ranged from 118/88-160 to admission. Her last blood pressure taken this morning is 130/75. All lab was personally reviewed. Sodium is normal at 138 today. Troponin is less than 0.015.
[2019-03-15] MEDS: Budesonide Respules 0.5 MG/2 ML AMPUL.NEB. INHALATION (07:20)
[2019-03-15] MEDS: Albuterol 2.5 MG/3 ML VIAL.NEB. INHALATION ×2 (07:20→13:40)
--- NOTE | 2019-03-15 07:39 | CON.PCM_ITS ---
Problem List (1) Unstable angina pectoris due to coronary arteriosclerosis Status: Acute (2) CAD in [place] artery Status: Chronic (3) History of coronary artery stent placement Status: Resolved Comment: PCI-LIZETTE-Mid LAD w/ 2.5 x 28 mm and 2.5 x 12 mm Synergy Stent 10/10/18 (4) Ischemic cardiomyopathy Status: Chronic (5) Hyperlipidemia Status: Chronic Qualifiers: Hyperlipidemia type: pure hypercholesterolemia Qualified Code(s): E78.00 - Pure hypercholesterolemia, unspecified; E78.0 - Pure hypercholesterolemia (6) Essential (primary) hypertension Status: Chronic (7) Hyperglycemia due to type 1 diabetes mellitus Status: Chronic (8) Breast cancer, left breast Status: Acute Reason for Consult Date of Consultation: 03/15/19 History of Present Illness: The patient is a 58 year old white female with a past cardiovascular history which is included underlying hyperlipidemia, hypertension, CAD, ST segment elevation [place] (10-10-18), status post LAD PTCA/LIZETTE, superimposed upon diabetes mellitus and a history of left breast carcinoma who presents for symptoms of unstable angina pectoris. She states she awoke yesterday evening with symptoms of left neck, left shoulder, left chest, left axillary, and left back discomfort which mimic discomfort she had at the time of her original presentation other than not having under the chin discomfort . She did feel more short of breath, became nauseated but had no emesis, and became diaphoretic. Based upon her symptoms she presented to the [facility] emergency department for further evaluation. She was evaluated and treated with nitroglycerin sublingual with relief of her symptoms. She had a negative tropo denise I level. Her ECG demonstrated sinus rhythm with no acute ECG changes. She was placed in the PCU for further evaluation and care. Her repeat troponin I level and ECG have demonstrated no acute changes. She has been treated medically with nitrates as well as subcutaneous Lovenox. At the present time she states she feels better. She has denied any orthopnea, PND, or peripheral pitting edema. There has been no near syncope or syncope. [] Past Medical History Allergies/Adverse Reactions: Allergies calcium carbonate [From Florical] Allergy (Verified 03/14/19 21:22) Swelling codeine Allergy (Verified 03/14/19 21:22) Swelling egg Allergy (Verified 03/14/19 21:22) Unknown fish derived Allergy (Verified 03/14/19 21:22) Unknown nitrofurantoin macrocrystalline [From Macrodantin] Allergy (Verified 03/14/19 21:22) Swelling oxycodone HCl [From Percocet] Allergy (Verified 03/14/19 21:22) Hives propoxyphene napsylate [From Darvocet-N 100] Allergy (Verified 03/14/19 21:22) Hives sodium fluoride [From Florical] Allergy (Verified 03/14/19 21:22) Swelling Sulfa (Sulfonamide Antibiotics) Allergy (Verified 03/14/19 21:22) Unknown tamoxifen Adverse Reaction (Verified 03/14/19 21:45) Hives Home Medications: Ambulatory Orders Medication Instructions Recorded Albuterol Inhaler [Ventolin Hfa] 2 puff INHALATION Q6H PRN PRN 11/10/16 Citalopram Hydrobromide [Celexa] 20 mg PO DAILY 11/10/16 Fluticasone/Salmeterol [Advair 1 puff INHALATION BID 11/10/16 250/50 Mcg Diskus] Insulin NPH Human Isophane 18 unit SQ BID 11/10/16 [Humulin N] Insulin Regular, Human [Humulin R] 10 unit SUBCUT TID 11/10/16 Polyethylene Glycol 3350 [Miralax] 17 gm PO DAILY PRN 11/10/16 Trazodone HCl 200 mg PO QHS 11/10/16 Aspirin E.C. [Ecotrin] 81 mg PO DAILY@0800 tab 10/12/18 isosorbide mononitrate ER 60 mg 60 mg PO BID #60 tab 12/02/18 tablet,extended release 24 hr buspirone 5 mg tablet 5 mg PO DAILY 30 Days #60 tab 01/06/19 clopidogrel 75 mg tablet 75 mg PO DAILY #90 tab 01/19/19 Rosuvastatin Calcium 40 mg PO DAILY 01/26/19 carvedilol 6.25 mg tablet 6.25 mg PO BID #60 tab 02/27/19 Anastrozole [Arimidex] 1 mg PO DAILY 03/14/19 Lisinopril 2.5 mg PO BID 03/14/19 Past Medical History (Chronic Problems): Chronic Problems (Last Reviewed 11/07/18 @ 14:53 by Oskar Olsen MD) Hyperglycemia due to type 1 diabetes mellitus (Chronic) CAD in [place] artery (Chronic) Ischemic cardiomyopathy (Chronic) Atherosclerosis of coronary artery of [place] heart without angina pectoris (Chronic) PCI-LIZETTE-Mid LAD w/ 2.5 x 28 mm and 2.5 x 12 mm Synergy Stent 10/10/18 Essential (primary) hypertension (Chronic) Hyperlipidemia (Chronic) STEMI (ST elevation myocardial infarction) (Chronic 10/10/18) Surgical History: cholecystectomy, hysterectomy - CRIS/BSO for endometriosis and bleeding, - - ear surgery and eye surgery 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 History: 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 - *Family History Maternal Family History: Family History (Last Reviewed 11/07/18 @ 14:53 by Oskar Olsen MD) Sister Heart disease Breast cancer Mother Heart disease Breast cancer Diabetes Father Heart disease Diabetes History Items: Cancer, Diabetes, Heart Disease Paternal Family History: Family History (Last Reviewed 11/07/18 @ 14:53 by Oskar Olsen MD) Sister Heart disease Breast cancer Mother Heart disease Breast cancer Diabetes Father Heart disease Diabetes History Items: Diabetes, Heart Disease Sibling Family History: Family History (Last Reviewed 11/07/18 @ 14:53 by Oskar Olsen MD) Sister Heart disease Breast cancer Mother Heart disease Breast cancer Diabetes Father Heart disease Diabetes History Items: Cancer, Heart Disease Lives: Alone Smoking Status: Never smoker Tobacco Use: Non-smoker Alcohol: None Drugs: None Review of Systems - Review of Systems General: Denies: Fever, Night Sweats, Fatigue Cardiovascular: Reports: Chest Discomfort, Chest Discomfort at Rest, Shortness of Breath, Shortness of Breath at Rest. Denies: Orthopnea, PND, Peripheral Edema, Palpitations, Lightheadedness, Dizziness, Near Syncope, Syncope Respiratory: Reports: Shortness of Breath. Denies: Cough, Sputum Production, Hemoptysis Gastrointestinal: Denies: Hematemesis, Hematochezia, Melena Genitourinary: Denies: Dysuria, Hematuria Skin: Denies: Rash Subjectve: This is a 58-year-old white female who appears to be resting comfortably at the moment in no acute distress. Objective: Vital Signs Temp Pulse Resp BP Pulse Ox 97.6 F L 64 14 130/75 H 95 03/15/19 06:25 03/15/19 06:58 03/15/19 06:25 03/15/19 06:25 03/15/19 06:25 Oxygen Delivery Method Room Air Weight: 167 lb 5.294 oz Body Mass Index (BMI) 33.7 Finger Stick Blood Glucose 362 Intake and Output for Last 24 Hours 03/13/19 03/14/19 03/15/19 23:59 23:59 23:59 Intake Total 240 / 240 Balance 240 / 240 General: Awake, Alert, Oriented x 3, Cooperative, No Acute Distress HEENT: Atraumatic, Normocephalic, PERRL, EOMI, Sclera Non Icteric Oral: Moist Mucosa Neck: Supple, Good ROM, No JVD Lungs: Clear to auscultation Cardiovascular: Regular Rhythm, Normal S1, Normal S2 Vascular: No Carotid Bruits Abdomen: Bowel Sounds Present, Soft, Non Tender Extremities: No Cyanosis, No Clubbing, No edema Neurological: No Focal Motor or Sensory Deficit Psych/Mental Status: Appropriate 03/14/19 21:25: WBC 5.2, RBC 5.13, Hgb 14.9, Hct 43.4, MCV 84.6, MCH 29.0, MCHC 34.3, Plt Count 220, MPV 10.4, Immature Gran % (Auto) 0.200, Neut % (Auto) 60.4, Lymph % (Auto) 25.8, [place] % (Auto) 8.0, Eos % (Auto) 5.0, Baso % (Auto) 0.6, Absolute Neuts (auto) 3.1, Nucleated RBC % 0 03/14/19 21:25: Sodium 134 L, Potassium 4.0, Chloride 103, Carbon Dioxide 25.0, Anion Gap 6, BUN 14, Creatinine 0.90, Est GFR (MDRD) Af Amer 82, Est GFR (MDRD) Non-Af 68, BUN/Creatinine Ratio 15.5, Glucose 375 H, Calcium 8.7, Troponin I < 0.015 03/15/19 00:39: Troponin I < 0.015 03/15/19 03:26: WBC 4.9, RBC 4.92, Hgb 14.3, Hct 42.0, MCV 85.4, MCH 29.1, MCHC 34.0, Plt Count 216, MPV 10.3, Immature Gran % (Auto) 0.200, Neut % (Auto) 51.8, Lymph % (Auto) 32.7, [place] % (Auto) 8.2, Eos % (Auto) 6.1 H, Baso % (Auto) 1.0, Absolute Neuts (auto) 2.5, Nucleated RBC % 0 03/15/19 03:26: Sodium 138, Potassium 3.9, Chloride 106, Carbon Dioxide 25.0, Anion Gap 7, BUN 13, Creatinine 0.71, Est GFR (MDRD) Af Amer 108, Est GFR (MDRD) Non-Af 89, BUN/Creatinine Ratio 18.3, Glucose 295 H, Calcium 8.4 L 03/15/19 03:26: Troponin I < 0.015 Rhythm: Sinus rhythm EKG: As noted above ECHO: 10-11-18: Left ventricle with regional wall motion abnormalities with an estimated LVEF of 45 to 50%; mild MR; unable to estimate RV systolic pressure Cardiac Cath: 10-10-18: Left main patent; LAD mid 99% stenosis with MEHREEN I flow; LCx with distal 70% stenosis; RCA with proximal 50% stenosis and mid 60% stenosis; left ventricle with an LVEF of 35% PCI: 10-10-18: LAD PTCA/LIZETTE CXR: Preliminary evaluation: No acute cardiopulmonary disease process appreciated: Please see official report Assessment/Plan 1. Unstable angina pectoris The patient presents with symptoms compatible with unstable angina pectoris. At the present time her cardiac enzymes and ECG of demonstrated no acute change to suggest acute myocardial injury. She has been treated medically with improvement of symptoms. Based upon her cardiovascular history and her presentation it was felt reasonable the patient should be reassessed in the cardiac catheterization labor atory. The procedure and risks were discussed with her and she was agreeable to this approach. 2. CAD status post remote STEMI status post LAD PTCA/LIZETTE The patient states she has been taking her medication faithfully. She notes her symptoms represent her previous acute coronary syndrome symptoms. She has been undergoing noninvasive evaluation as noted above. At the present time she will continue medical therapy and be considered for repeat diagnostic cardiac catheterization. 3. Ischemic mediated cardiomyopathy The patient has an underlying diminished LV systolic function. She does not complain of symptoms of acute CHF or pulmonary edema. She will need to continue her evaluation care as noted above. Her left ventricular systolic function will need to be reassessed over time to monitor for any change/decrease/increase to assist in guiding further evaluation and care. 4. Hyperlipidemia She will continue risk factor evaluation and care. 5. Hypertension She will continue medical management. 6. Diabetes mellitus She will continue under the care of internal medicine. 7. Left breast carcinoma She will continue to follow with her inorganic chemist/oncologist. Comment: The patient's case was discussed and reviewed with the patient and previously with Dr. Rouse of the [facility] emergency department staff as well as Dr. Steve of the [facility] staff. This note was generated using a voice recognition system and there may be incorrect words, spelling or punctuation that were not noted when reviewing the office note prior to saving.
[2019-03-15 07:42] LABS: AST(SGOT) 21 U/L (15-37); Alanine Aminotransfer ALT/SGPT 24 U/L (13-56); Albumin, Serum 3.7 g/dL (3.2-5.0); Alkaline Phosphatase 65 U/L (45-117); Bilirubin, Direct 0.12 mg/dL (0.00-0.30); Globulin 3.6 g/dL (2.2-4.2); Magnesium 2.1 mg/dL (1.6-2.6); Protein, Total 7.3 g/dL (6.4-8.2)
[2019-03-15 08:35] LABS: Bedside Glucose 344 mg/dL (70-110)
[2019-03-15 09:00] LABS: Hemoglobin A1c 9.8 % (4.2-6.3)
--- NOTE | 2019-03-15 10:15 | CASEMGMT ---
According to the [facility] website, the following are in-network tertiary facilities: [facility], [place], [facility], [place], [facility], [facility], [place], [facility], and . Samuel SHARMA CM
[2019-03-15] MEDS: 0.9% Normal Saline 1,000 ML 150 ML IV (10:20)
--- NOTE | 2019-03-15 10:27 | CL.I_ITS ---
Patient Name: ANGEL ALMODOVAR Study Date: 03/15/2019 Performing: Tristan Roach MD Ht: 59.06 inches 150 cm : 1960 Wt: 167.55 lbs 76 kg Age: 58 Gender: female BSA: 1.71 PROCEDURE(S) PERFORMED [id number], CORONARY OR GRAFT, INITIAL VESSEL [id number], CORONARY OR GRAFT, EACH ADD'L VESSEL II26-GKJ, CORONARY OR GRAFT, EACH ADD'L VESSEL CLINICAL PROFILE AND CO-MORBIDITIES Indications: Worsening Angina, Suspected CAD Heart Failure: None Stress/Imaging Stress/Image Study Performed: No Angina Classification Anginal Classification w/in 2 Weeks: CCS IV CAD Presentations: Unstable angina. CONCLUSIONS Negative FFR of LAD ISR (0.87), negative FFR of distal LCX (0.91) and negative FFR of proximal OM#2(0 .98). Successful Mynx Control closure of RFA. RECOMMENDATIONS Highly recommend quitting all tobacco products Follow up with primary retail branch manager Risk factor modification ASA Indefinitley Plavix for at least 12 months Routine post interventional care Refer for Outpatient Cardiac Rehab Manual sheath removal per protocol Follow up with Dr. Piper Pt may be d/cd home for elective stress/mpi in 3 weeks to eval RCA. DESCRIPTION OF PROCEDURE The patient arrived to the procedure lab. The risks and benefits of the procedure as well as a full d escription of our services here and current unavailability of surgical backup were fully explained to the patient and/or their significant other prior to the catheterization. The Timeout was completed, verifying the correct patient and procedure. The patient's procedural site was prepped and draped in the usual fashion. Local anesthetic was given subcutaneously to right groin region with Lidocaine 2% Using a modified Seldinger technique,arterial access was obtained via the right femoral artery, a 4Fr sheath was inserted Left Coronary Artery selective angiography was performed in multiple views using a 4 Fr. JL5 catheter. Left Coronary Artery selective angiography was performed in multiple views usi ng a 4 Fr. JL4 catheter. Right Coronary Artery selective angiography was then performed in multiple v iews using a 4 Fr. 3DRC catheter. Left Ventriculography was performed in OCAMPO projection using a 4 Fr. Pigtail catheter. LV to AO pullback pressures were then recorded.The images were review ed and options discussed. A decision was then made to proceed with an Intervention, IVUS or other adj unct procedure. Arterial sheath was exchanged for a 6 Fr Sheath. EBU 3.5 Guide catheter was inserted and engaged into the LCA. The FFR/iFR wire was inserted. The FFR/iFR wire was then removed. The FFR/iFR wire was inserted. Adenosine was then given per protocol. Pressures and FFR/iFR were then recorded. FFR Ratio Baseline: 0.97 FFR Ratio post Adenosine: 0.87 The FFR/iFR wire was then repositioned to the circumfle x. Adenosine was then given per protocol. Pressures and FFR/iFR were then recorded. FFR Ratio Baselin e: 1.0 FFR Ratio post Adenosine: 0.91 The FFR/iFR wire was then repositioned to the OM Adenosine was then given per protocol. Pressures and FFR/iFR were then recorded. FFR Ratio Baseline: 1.00 FFR Ratio post Adenosine: 0.98 The FFR/iFR wire was then removed. Contrast was injected through the sheath and the Right Iliac and Femoral artery were assessed for possible closure device. The arterial sheath w as pulled and a Mynx closure device was deployed for hemostasis INTERVENTION INFORMATION LESION SITE: LAD (Mid) Pre Stenosis: 50 % Pre intervention MEHREEN flow: 3 PROCEDURE: FFR Post Stenosis: 50 % Post intervention MEHREEN flow: 3 Lesion Devices: IGT Devices ( Formerly [employer]) Coronary FFR Wire Medtronic 6 Fr EBU3.5 100cm Guide Catheter LESION SITE: Circumflex (Mid) Pre Stenosis: 50 % Pre intervention MEHREEN flow: 3 PROCEDURE: FFR Post Stenosis: 50 % Post intervention MEHREEN flow: 3 Lesion Devices: IGT Devices ( Formerly [employer]) Coronary FFR Wire Medtronic 6 Fr EBU3.5 100cm Guide Catheter LESION SITE: 2nd OM (Proximal) Pre Stenosis: 50 % Pre intervention MEHREEN flow: 3 50 % Post intervention MEHREEN flow: 3 Lesion Devices: IGT Devices ( Formerly [employer]) Coronary FFR Wire Medtronic 6 Fr EBU3.5 100cm Guide Catheter COMPLICATIONS No Complications PROCEDURE MEDICATIONS Versed 1 mg IV Oxygen: 2 L/min via nasal cannula Adenosine drip for FFR 21.6 ml IV 03/15/2019 09:55:54 Adenosine drip for FFR 21.6 ml IV 03/15/2019 09:55:54 Adenosine drip for FFR 21.6 ml IV @ 03/15/2019 10:03:54 Heparin 6000 unit(s) IV 03/15/2019 09:45:51 Nitro 200 mcg IC 03/15/2019 09:48:10 Nitro 200 mcg IC 03/15/2019 09:48:10 IV Bolus: .9 NaCl 450 ml total 03/15/2019 10:15:03 SUMMARY OF HEMODYNAMIC DATA Time AIR REST ECG 09:08:11 AO 93/55 (70) SA 09:25:45 LV 112/-12, 6 09:33:26 LV 114/-15, 7 09:33:33 LV 116/-13, 9 09:34:37 LVp 117/-15, 11 09:34:43 AOp 116/55 (80) 09:34:48 AO 135/69 (96) 09:58:50 RM AIR REST 10:25:06 Signed By Tristan Roach MD On 03/15/2019 13:04:41 Signed By Tristan Roach MD On 03/15/2019 10:26:45 AM Tristan Roach MD
[2019-03-15 10:36] LABS: ACT Activated Clotting Time 235 sec (74-137)
--- NOTE | 2019-03-15 10:49 | EKG12_ITS ---
Test Reason : POST CATH Blood Pressure : / mmHG Vent. Rate : 055 BPM Atrial Rate : 055 BPM P-R Int : 140 ms QRS Dur : 084 ms QT Int : 466 ms P-R-T Axes : 050 040 051 degrees QTc Int : 445 ms Sinus bradycardia Otherwise normal ECG When compared with ECG of 15-MAR-2019 05:43, MANUAL COMPARISON REQUIRED, DATA IS UNCONFIRMED Confirmed by KEO RIBERA ([id number]), editor map OMID FLORENCE ([id number]) on 03/17/2019 1:05:55 PM Referred By: BACILIO Confirmed By:KEO RIBERA
[2019-03-15] MEDS: Citalopram 20 MG Tablet PO (11:49)
[2019-03-15] MEDS: busPIRone 5 MG Tablet PO (11:49)
[2019-03-15] MEDS: Anastrozole 1 MG Tablet PO (11:50)
[2019-03-15] MEDS: Insulin Lispro 100 UNIT/ML INSULN.PEN 10 UNIT SC (11:53)
[2019-03-15] MEDS: Insulin Lispro 100 UNIT/ML INSULN.PEN SC (11:54)
[2019-03-15] MEDS: Insulin NPH Human 100 UNITS/ML PEN 18 UNITS SC (11:54)
--- NOTE | 2019-03-15 12:00 | VDLE_ITS ---
Reason For Study: Pain RIGHT LEFT GSV is normal. GSV is normal. FV is compressible, spontaneous, phasic, CFV is compressible, spontaneous, phasic, competent and demonstrates normal competent, and demonstrates normal augmentation. augmentation. POP V is compressible, spontaneous, phasic, FV is compressible, spontaneous, phasic, competent and demonstrates normal competent and demonstrates normal augmentation. augmentation. T/P Trunk is compressible. POP V is compressible, spontaneous, phasic, PTV is compressible. competent and demonstrates normal RT PerV is compressible. augmentation. Procedure T/P Trunk is compressible. Exam performed portable in patient room. PTV is compressible. A preliminary report was called and/or faxed LT PerV is compressible. to Melissa SHARMA. Unable to visualize Rt CFV and Rt SFJ due to recent heart cath. Interpretation Summary Deep veins of the lower extremities are bilaterally patent and compressible segmentally. There is no evidence of deep vein thrombosis on either side. Valvular competence appears intact within the proximal deep venous systems bilaterally. The great saphenous veins appear bilaterally patent and compressible segmentally. The right common femoral vein and sapheno-femoral junction were not visualized. Ordering Physician: Tatum Mason Referring Physician: Anup Quinones Performed By: Mali Torrez, JORGE, RVT
--- NOTE | 2019-03-15 12:09 | PCM.PN.BLA ---
Progress Note Cath was negative for any significant stenosis. Telemetry shows NSR and SB with no ectopy. No CP today but it was severe last night. She is c/o SOB. Pulse ox is 95 to 97% on room air at rest. There is no tachycardia however she is on a beta-josh. She denies any history of VTE. She is being treated by Dr. 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 She had 5 weeks of radiation that finished. She has not had chemo but, she is now on Arimidex. Because of her hx of CA and tenderness in both calves with + Santhosh and Alan's on the left.....winces with both of these tests and withdraws, we will get a D DIMER, venous US's of the legs and if the D Dimer is elevated a CTA of the chest. IF all is negative will discharge later today.
[2019-03-15 12:10] LABS: Bedside Glucose 309 mg/dL (70-110)
[2019-03-15 13:10] LABS: D-Dimer Quantitative (DVT/PE) < 0.27 FEU/ug/m (0.27-0.49)
--- NOTE | 2019-03-15 13:32 | DCINST_ITS ---
- Discharge Diagnoses Current Active Problems: Current Active and Chronic Problems (Last Updated 03/15/19 @ 10:11 by Cee Khan) Unstable angina pectoris due to coronary arteriosclerosis (Chronic) Hyperglycemia due to type 1 diabetes mellitus (Chronic) You will use the following diet at home:: Calorie/Carbohydrate Controlled (specify 1200, 1400, etc) - 9480-0313 calories daily with no concentrated sweets, Cardiac - Low-fat, low-salt Your food should be the consistency of: Regular Your liquids should be the consistency of: Regular/Thin Discharge Activity: Return to Normal Activity May resume sexual activity in: No Restrictions Call your doctor if your incision/area has: - - swelling, redness, discharge from the puncture site in the right groin. Call your doctor if you observe: Fever of 101 or Higher, Dizziness, Fainting spells, Uncontrolled pain Additional Instructions: The D-Dimer, which is a test for blood clotting was negative. The US's of the legs did not show any blood clots. I do not know what caused the pain. The cardiac cath showed no need for intervention so we will continue with medical management. Dr. Roach to increase the Coreg to 12.5 mg twice daily and I have sent her prescription to [facility]. Pending Tests on Discharge: none Allergies/Adverse Reactions: Allergies calcium carbonate [From Florical] Allergy (Verified 03/14/19 21:22) Swelling codeine Allergy (Verified 03/14/19 21:22) Swelling egg Allergy (Verified 03/14/19 21:22) Unknown fish derived Allergy (Verified 03/14/19 21:22) Unknown nitrofurantoin macrocrystalline [From Macrodantin] Allergy (Verified 03/14/19 21:22) Swelling oxycodone HCl [From Percocet] Allergy (Verified 03/14/19 21:22) Hives propoxyphene napsylate [From Darvocet-N 100] Allergy (Verified 03/14/19 21:22) Hives sodium fluoride [From Florical] Allergy (Verified 03/14/19 21:22) Swelling Sulfa (Sulfonamide Antibiotics) Allergy (Verified 03/14/19 21:22) Unknown tamoxifen Adverse Reaction (Verified 03/14/19 21:45) Hives Medications to take at Discharge Albuterol Inhaler [Ventolin Hfa] 2 puff INHALATION Q6H PRN PRN 11/10/16 Citalopram Hydrobromide [Celexa] 20 mg PO DAILY 11/10/16 Fluticasone/Salmeterol [Advair 250/50 Mcg Diskus] 1 puff INHALATION BID 11/10/16 Insulin NPH Human Isophane [Humulin N] 18 unit SQ BID 11/10/16 Insulin Regular, Human [Humulin R] 10 unit SUBCUT TID 11/10/16 Polyethylene Glycol 3350 [Miralax] 17 gm PO DAILY PRN 11/10/16 Trazodone HCl 200 mg PO QHS 11/10/16 Aspirin E.C. [Ecotrin] 81 mg PO DAILY@0800 tab 10/12/18 isosorbide mononitrate ER 60 mg tablet,extended release 24 hr 60 mg PO BID #60 tab 12/02/18 buspirone 5 mg tablet 5 mg PO DAILY 30 Days #60 tab 01/06/19 clopidogrel 75 mg tablet 75 mg PO DAILY #90 tab 01/19/19 Rosuvastatin Calcium 40 mg PO DAILY 01/26/19 carvedilol 6.25 mg tablet 6.25 mg PO BID #60 tab 02/27/19 Anastrozole [Arimidex] 1 mg PO DAILY 03/14/19 Lisinopril 2.5 mg PO BID 03/14/19 Carvedilol [Coreg (Beta Vikas)] 12.5 mg PO BIDCM #60 tab 03/15/19 The following prescriptions were given: Carvedilol [Coreg (Beta Vikas)] 12.5 mg PO BIDCM #60 tab Transmission Status: Pending to [id number] Primary Care Physician: Anup Quinones MD [Primary Care Provider] - Please follow up with your Primary Care Physician in: 5-7 days Test Results: Test results from this visit will be discussed in further detail at your follow- up appointment, if applicable. Please Follow Up With: cardiology as previously scheduled Proposed Discharge Date: 03/15/19
--- NOTE | 2019-03-15 14:05 | DS.PCM_ITS ---
Discharge Date and Diagnosis Date of Admission: 03/14/19 Date of Discharge: 03/15/19 - Primary Discharge Diagnosis chest pain - non-cardiac - Secondary Discharge Diagnosis Chronic Problems (Last Updated 03/15/19 @ 10:11 by Cee Khan) Diabetes mellitus type 2 in obese (Chronic) - uncontrolled, HGBA1C is 9.8 Carcinoma in situ, breast, ductal (Chronic) Ischemic cardiomyopathy (Chronic) EF 45-50% Atherosclerosis of coronary artery of kake heart without angina pectoris (Chronic) PCI-LIZETTE-Mid LAD w/ 2.5 x 28 mm and 2.5 x 12 mm Synergy Stent 10/10/18 Essential (primary) hypertension (Chronic) Hyperlipidemia (Chronic) STEMI (ST elevation myocardial infarction) (Chronic 10/10/18) Obesity Stage I diastolic dysfunction Hospital Course and Treatment Imaging Results: Clinical Impression(s) from Imaging Studies Chest X-Ray 03/14/19 21:30 IMPRESSION: No acute chest disease. Electronically Signed: Randal Ramírez MD at 21:40 EDT , Service support , Laboratory Tests 03/15/19 03/15/19 03/15/19 Range/Units 12:30 11:38 10:13 WBC (4.4-11.0) K/mm3 RBC (4.2-5.4) M/mm3 Hgb (12.0-15.0) g/dL Hct (37-47) % MCV (81-99) fL MCH (27.0-32.0) pg MCHC (32-36) g/dL RDW Std Deviation (35.1-43.9) fl RDW Coeff of Sanjay (11.6-14.6) % Plt Count (150-450) K/mm3 MPV (6.2-12.0) fl Immature Gran % (Auto) (0.0-0.9) % Neut % (Auto) (47-70) % Lymph % (Auto) (19-41) % Rankin % (Auto) (0-10) % Eos % (Auto) (0-5) % Baso % (Auto) (0-1) % Absolute Neuts (auto) (2.0-7.7) X10^3/uL Absolute Lymphs (auto) (0.83-4.51) X10^3/uL Nucleated RBC % (0-5) % Activated Clotting Time 235 H (74-137) sec D-Dimer Quant (PE/DVT) < 0.27 L (0.27-0.49) FEU/ug/m Sodium (136-145) mmol/L Potassium (3.5-5.1) mmol/L Chloride (98-107) mmol/L Carbon Dioxide (21.0-32.0) mmol/L Anion Gap (5-15) BUN (7-18) mg/dL Creatinine (0.55-1.02) mg/dL Estim Creat Clear Calc ml/min Est GFR (MDRD) Af Amer (>60) mL/min Est GFR (MDRD) Non-Af (>60) mL/min BUN/Creatinine Ratio (10-20) RATIO Glucose (74-106) mg/dL Hemoglobin A1c (4.2-6.3) % Calcium (8.5-10.1) mg/dL Magnesium (1.6-2.6) mg/dL Total Bilirubin (0.20-1.00) mg/dL Direct Bilirubin (0.00-0.30) mg/dL AST (15-37) U/L ALT (13-56) U/L Alkaline Phosphatase (45-117) U/L Troponin I (<0.045) ng/mL Total Protein (6.4-8.2) g/dL Albumin (3.2-5.0) g/dL Globulin (2.2-4.2) g/dL POC Glucose 309 H (70-110) mg/dL 03/15/19 03/15/19 03/15/19 Range/Units 08:26 03:26 03:26 WBC (4.4-11.0) K/mm3 RBC (4.2-5.4) M/mm3 Hgb (12.0-15.0) g/dL Hct (37-47) % MCV (81-99) fL MCH (27.0-32.0) pg MCHC (32-36) g/dL RDW Std Deviation (35.1-43.9) fl RDW Coeff of Sanjay (11.6-14.6) % Plt Count (150-450) K/mm3 MPV (6.2-12.0) fl Immature Gran % (Auto) (0.0-0.9) % Neut % (Auto) (47-70) % Lymph % (Auto) (19-41) % Rankin % (Auto) (0-10) % Eos % (Auto) (0-5) % Baso % (Auto) (0-1) % Absolute Neuts (auto) (2.0-7.7) X10^3/uL Absolute Lymphs (auto) (0.83-4.51) X10^3/uL Nucleated RBC % (0-5) % Activated Clotting Time (74-137) sec D-Dimer Quant (PE/DVT) (0.27-0.49) FEU/ug/m Sodium (136-145) mmol/L Potassium (3.5-5.1) mmol/L Chloride (98-107) mmol/L Carbon Dioxide (21.0-32.0) mmol/L Anion Gap (5-15) BUN (7-18) mg/dL Creatinine (0.55-1.02) mg/dL Estim Creat Clear Calc ml/min Est GFR (MDRD) Af Amer (>60) mL/min Est GFR (MDRD) Non-Af (>60) mL/min BUN/Creatinine Ratio (10-20) RATIO Glucose (74-106) mg/dL Hemoglobin A1c 9.8 H (4.2-6.3) % Calcium (8.5-10.1) mg/dL Magnesium 2.1 (1.6-2.6) mg/dL Total Bilirubin 0.40 (0.20-1.00) mg/dL Direct Bilirubin 0.12 (0.00-0.30) mg/dL AST 21 (15-37) U/L ALT 24 (13-56) U/L Alkaline Phosphatase 65 (45-117) U/L Troponin I (<0.045) ng/mL Total Protein 7.3 (6.4-8.2) g/dL Albumin 3.7 (3.2-5.0) g/dL Globulin 3.6 (2.2-4.2) g/dL POC Glucose 344 H (70-110) mg/dL 03/15/19 03/15/19 03/15/19 Range/Units 03:26 03:26 03:26 WBC 4.9 (4.4-11.0) K/mm3 RBC 4.92 (4.2-5.4) M/mm3 Hgb 14.3 (12.0-15.0) g/dL Hct 42.0 (37-47) % MCV 85.4 (81-99) fL MCH 29.1 (27.0-32.0) pg MCHC 34.0 (32-36) g/dL RDW Std Deviation 37.7 (35.1-43.9) fl RDW Coeff of Sanjay 12.1 (11.6-14.6) % Plt Count 216 (150-450) K/mm3 MPV 10.3 (6.2-12.0) fl Immature Gran % (Auto) 0.200 (0.0-0.9) % Neut % (Auto) 51.8 (47-70) % Lymph % (Auto) 32.7 (19-41) % Rankin % (Auto) 8.2 (0-10) % Eos % (Auto) 6.1 H (0-5) % Baso % (Auto) 1.0 (0-1) % Absolute Neuts (auto) 2.5 (2.0-7.7) X10^3/uL Absolute Lymphs (auto) 1.60 (0.83-4.51) X10^3/uL Nucleated RBC % 0 (0-5) % Activated Clotting Time (74-137) sec D-Dimer Quant (PE/DVT) (0.27-0.49) FEU/ug/m Sodium 138 (136-145) mmol/L Potassium 3.9 (3.5-5.1) mmol/L Chloride 106 (98-107) mmol/L Carbon Dioxide 25.0 (21.0-32.0) mmol/L Anion Gap 7 (5-15) BUN 13 (7-18) mg/dL Creatinine 0.71 (0.55-1.02) mg/dL Estim Creat Clear Calc 102.22 ml/min Est GFR (MDRD) Af Amer 108 (>60) mL/min Est GFR (MDRD) Non-Af 89 (>60) mL/min BUN/Creatinine Ratio 18.3 (10-20) RATIO Glucose 295 H (74-106) mg/dL Hemoglobin A1c (4.2-6.3) % Calcium 8.4 L (8.5-10.1) mg/dL Magnesium (1.6-2.6) mg/dL Total Bilirubin (0.20-1.00) mg/dL Direct Bilirubin (0.00-0.30) mg/dL AST (15-37) U/L ALT (13-56) U/L Alkaline Phosphatase (45-117) U/L Troponin I < 0.015 (<0.045) ng/mL Total Protein (6.4-8.2) g/dL Albumin (3.2-5.0) g/dL Globulin (2.2-4.2) g/dL POC Glucose (70-110) mg/dL 03/15/19 03/14/19 03/14/19 Range/Units 00:39 21:25 21:25 WBC 5.2 (4.4-11.0) K/mm3 RBC 5.13 (4.2-5.4) M/mm3 Hgb 14.9 (12.0-15.0) g/dL Hct 43.4 (37-47) % MCV 84.6 (81-99) fL MCH 29.0 (27.0-32.0) pg MCHC 34.3 (32-36) g/dL RDW Std Deviation 36.8 (35.1-43.9) fl RDW Coeff of Sanjay 12.0 (11.6-14.6) % Plt Count 220 (150-450) K/mm3 MPV 10.4 (6.2-12.0) fl Immature Gran % (Auto) 0.200 (0.0-0.9) % Neut % (Auto) 60.4 (47-70) % Lymph % (Auto) 25.8 (19-41) % Rankin % (Auto) 8.0 (0-10) % Eos % (Auto) 5.0 (0-5) % Baso % (Auto) 0.6 (0-1) % Absolute Neuts (auto) 3.1 (2.0-7.7) X10^3/uL Absolute Lymphs (auto) 1.33 (0.83-4.51) X10^3/uL Nucleated RBC % 0 (0-5) % Activated Clotting Time (74-137) sec D-Dimer Quant (PE/DVT) (0.27-0.49) FEU/ug/m Sodium 134 L (136-145) mmol/L Potassium 4.0 (3.5-5.1) mmol/L Chloride 103 (98-107) mmol/L Carbon Dioxide 25.0 (21.0-32.0) mmol/L Anion Gap 6 (5-15) BUN 14 (7-18) mg/dL Creatinine 0.90 (0.55-1.02) mg/dL Estim Creat Clear Calc 82.13 ml/min Est GFR (MDRD) Af Amer 82 (>60) mL/min Est GFR (MDRD) Non-Af 68 (>60) mL/min BUN/Creatinine Ratio 15.5 (10-20) RATIO Glucose 375 H (74-106) mg/dL Hemoglobin A1c (4.2-6.3) % Calcium 8.7 (8.5-10.1) mg/dL Magnesium (1.6-2.6) mg/dL Total Bilirubin (0.20-1.00) mg/dL Direct Bilirubin (0.00-0.30) mg/dL AST (15-37) U/L ALT (13-56) U/L Alkaline Phosphatase (45-117) U/L Troponin I < 0.015 < 0.015 (<0.045) ng/mL Total Protein (6.4-8.2) g/dL Albumin (3.2-5.0) g/dL Globulin (2.2-4.2) g/dL POC Glucose (70-110) mg/dL Dr. Darwin Piper and Dr. [facility] Operations: None Procedures: Cardiac catheterization - negative for any stenosis requiring intervention Summary of Care Provided: The patient is a 58-year-old female with a past medical history of ischemic cardiomyopathy, CAD with history of PCI/LIZETTE to the mid LAD, hypertension, diastolic dysfunction, obesity, hyperlipidemia, fibromyalgia, reported rheumatoid arthritis but on no medications, renal failure stage III, diabetes mellitus type 2, depression, asthma and hx of STEMI in September of 2018 who presented to the emergency department at [facility] on 03/14/2019 complaining of chest pain that awoke her that afternoon while taking a nap. The pain radiated to her neck and was associated with palpitations and shortness of breath. When she had the stent placed in the mid LAD for STEMI on 10/10/2018 she was also noted to have a 70% lesion of the circumflex and a 60% stenosis of proximal RCA. Echocardiogram prior to discharge in September showed a 45 to 50% e jection fraction with stage I diastolic dysfunction. She was supposed to be brought back for a possible staged intervention to the RCA and LCx. Vital signs at presentation to the emergency department were temperature 98.5, pulse rate 74, blood pressure 169/94, respiratory rate 22 and she was 98% saturated on room air. CBC was normal. Sodium was mildly decreased at 134. Random glucose was 375 and troponin was less than 0.015. Chest x-ray showed no pulmonary vascular congestion, pleural effusions or infiltrates. EKG showed normal sinus rhythm with T wave inversions in lead I and II which were present on prior EKGs. She was given nitroglycerin in the emergency department and admitted to a monitored bed on PCU. Dr. Piper was consulted. The pt was taken for cardiac catheterization by Dr. Roach and required no intervention. Continued medical management was recommended and the Coreg was increased to 12.5 mg BID. 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 She is currently on Arimidex. She had tenderness with palpation of both calves so a D-dimer was obtained and was normal. Venous US of the LE's were negative for clot. She was discharged home and will follow up with Dr. Quinones in 5-7 days. She will follow up with Dr. Olsen as previously arranged. General: alert, oriented X3, NAD, appropriate with a somewhat strange affect...always apologizing for things and seems confused Neck: supple, trachea midline, carotids have brisk upstroke and normal pulse volume, no JVD, no carotid bruits Lungs: CTA, symmetric chest expansion, not tachypneic, able to lie flat with no respiratory distress, no conversational dyspnea, no accessory muscle use, no rales Heart: Regular rate and rhythm, normal S1, normal S2, no murmur, no gallop, no rub, PMI is on the midclavicular line Abdomen: soft, NT, ND, BS's present Extremities: no edema, no calf tenderness, peripheral pulses are normal, no cyanosis This note was generated with [employer] dictation software. It may contain incorrect words, spelling, and punctuation that were not noted in checking the note before signing. - Physical Exam Vital Signs Temp Pulse Resp BP Pulse Ox 97.8 F 71 16 105/68 95 03/15/19 11:30 03/15/19 13:40 03/15/19 13:40 03/15/19 12:02 03/15/19 12:02 Oxygen Delivery Method Room Air Weight: 167 lb 5.294 oz Body Mass Index (BMI) 33.7 Finger Stick Blood Glucose 362 Intake and Output for Last 24 Hours 03/13/19 03/14/19 03/15/19 23:59 23:59 23:59 Intake Total 240 / 240 550 / 550 Balance 240 / 240 550 / 550 Laboratory Tests Past 24 Hrs 03/14/19 03/14/19 03/15/19 21:25 21:25 00:39 WBC 5.2 RBC 5.13 Hgb 14.9 Hct 43.4 MCV 84.6 MCH 29.0 MCHC 34.3 RDW Std Deviation 36.8 RDW Coeff of Sanjay 12.0 Plt Count 220 MPV 10.4 Immature Gran % (Auto) 0.200 Neut % (Auto) 60.4 Lymph % (Auto) 25.8 Rankin % (Auto) 8.0 Eos % (Auto) 5.0 Baso % (Auto) 0.6 Absolute Neuts (auto) 3.1 Absolute Lymphs (auto) 1.33 Nucleated RBC % 0 Activated Clotting Time D-Dimer Quant (PE/DVT) Sodium 134 L Potassium 4.0 Chloride 103 Carbon Dioxide 25.0 Anion Gap 6 BUN 14 Creatinine 0.90 Estim Creat Clear Calc 82.13 Est GFR (MDRD) Af Amer 82 Est GFR (MDRD) Non-Af 68 BUN/Creatinine Ratio 15.5 Glucose 375 H Hemoglobin A1c Calcium 8.7 Magnesium Total Bilirubin Direct Bilirubin AST ALT Alkaline Phosphatase Troponin I < 0.015 < 0.015 Total Protein Albumin Globulin 03/15/19 03/15/19 03/15/19 03:26 03:26 03:26 WBC 4.9 RBC 4.92 Hgb 14.3 Hct 42.0 MCV 85.4 MCH 29.1 MCHC 34.0 RDW Std Deviation 37.7 RDW Coeff of Sanjay 12.1 Plt Count 216 MPV 10.3 Immature Gran % (Auto) 0.200 Neut % (Auto) 51.8 Lymph % (Auto) 32.7 Rankin % (Auto) 8.2 Eos % (Auto) 6.1 H Baso % (Auto) 1.0 Absolute Neuts (auto) 2.5 Absolute Lymphs (auto) 1.60 Nucleated RBC % 0 Activated Clotting Time D-Dimer Quant (PE/DVT) Sodium 138 Potassium 3.9 Chloride 106 Carbon Dioxide 25.0 Anion Gap 7 BUN 13 Creatinine 0.71 Estim Creat Clear Calc 102.22 Est GFR (MDRD) Af Amer 108 Est GFR (MDRD) Non-Af 89 BUN/Creatinine Ratio 18.3 Glucose 295 H Hemoglobin A1c Calcium 8.4 L Magnesium Total Bilirubin Direct Bilirubin AST ALT Alkaline Phosphatase Troponin I < 0.015 Total Protein Albumin Globulin 03/15/19 03/15/19 03/15/19 03:26 03:26 10:13 WBC RBC Hgb Hct MCV MCH MCHC RDW Std Deviation RDW Coeff of Sanjay Plt Count MPV Immature Gran % (Auto) Neut % (Auto) Lymph % (Auto) Rankin % (Auto) Eos % (Auto) Baso % (Auto) Absolute Neuts (auto) Absolute Lymphs (auto) Nucleated RBC % Activated Clotting Time 235 H D-Dimer Quant (PE/DVT) Sodium Potassium Chloride Carbon Dioxide Anion Gap BUN Creatinine Estim Creat Clear Calc Est GFR (MDRD) Af Amer Est GFR (MDRD) Non-Af BUN/Creatinine Ratio Glucose Hemoglobin A1c 9.8 H Calcium Magnesium 2.1 Total Bilirubin 0.40 Direct Bilirubin 0.12 AST 21 ALT 24 Alkaline Phosphatase 65 Troponin I Total Protein 7.3 Albumin 3.7 Globulin 3.6 03/15/19 12:30 WBC RBC Hgb Hct MCV MCH MCHC RDW Std Deviation RDW Coeff of Sanjay Plt Count MPV Immature Gran % (Auto) Neut % (Auto) Lymph % (Auto) Rankin % (Auto) Eos % (Auto) Baso % (Auto) Absolute Neuts (auto) Absolute Lymphs (auto) Nucleated RBC % Activated Clotting Time D-Dimer Quant (PE/DVT) < 0.27 L Sodium Potassium Chloride Carbon Dioxide Anion Gap BUN Creatinine Estim Creat Clear Calc Est GFR (MDRD) Af Amer Est GFR (MDRD) Non-Af BUN/Creatinine Ratio Glucose Hemoglobin A1c Calcium Magnesium Total Bilirubin Direct Bilirubin AST ALT Alkaline Phosphatase Troponin I Total Protein Albumin Globulin POC Glucose 03/15/19 03/15/19 11:38 08:26 POC Glucose 309 H 344 H Discharge Activity: Return to Normal Activity May resume sexual activity in: No Restrictions Call your doctor if your incision/area has: - - swelling, redness, discharge from the puncture site in the right groin. Call your doctor if you observe: Fever of 101 or Higher, Dizziness, Fainting spells, Uncontrolled pain Home Medications: Medications to take at Discharge Albuterol Inhaler [Ventolin Hfa] 2 puff INHALATION Q6H PRN PRN 11/10/16 Citalopram Hydrobromide [Celexa] 20 mg PO DAILY 11/10/16 Fluticasone/Salmeterol [Advair 250/50 Mcg Diskus] 1 puff INHALATION BID 11/10/16 Insulin NPH Human Isophane [Humulin N] 18 unit SQ BID 11/10/16 Insulin Regular, Human [Humulin R] 10 unit SUBCUT TID 11/10/16 Polyethylene Glycol 3350 [Miralax] 17 gm PO DAILY PRN 11/10/16 Trazodone HCl 200 mg PO QHS 11/10/16 Aspirin E.C. [Ecotrin] 81 mg PO DAILY@0800 tab 10/12/18 isosorbide mononitrate ER 60 mg tablet,extended release 24 hr 60 mg PO BID #60 tab 12/02/18 buspirone 5 mg tablet 5 mg PO DAILY 30 Days #60 tab 01/06/19 clopidogrel 75 mg tablet 75 mg PO DAILY #90 tab 01/19/19 Rosuvastatin Calcium 40 mg PO DAILY 01/26/19 carvedilol 6.25 mg tablet 6.25 mg PO BID #60 tab 02/27/19 Anastrozole [Arimidex] 1 mg PO DAILY 03/14/19 Lisinopril 2.5 mg PO BID 03/14/19 Carvedilol [Coreg (Beta Vikas)] 12.5 mg PO BIDCM #60 tab 03/15/19 Following Prescrptions Were Given to Patient: Carvedilol [Coreg (Beta Vikas)] 12.5 mg PO BIDCM #60 tab Transmission Status: Received by [facility] 181 Primary Care Physician: Anup Quinones MD [Primary Care Provider] - Minutes spent on discharge:: 30 Patient Condition:: Good Medical Necessity - Tobacco Use Smoking Status: Never smoker Tobacco Use: Non-smoker Meaningful Use Info Meaningful Use Diagnoses (Choose all that apply): None applicable Code Visit OBSV E&M: 35067 Observation care discharge
--- NOTE | 2019-03-15 14:10 | CASEMGMT ---
ZACHARY GEORGES assessment: Face to Face with patient for initial transition planning/care coordination assessment. ZACHARY GEORGES introduced self and role at [facility], pt voices understanding and consents to assessment at this time. Pt is sitting up in bed in no distress at this time. Pt is A/Ox4 at this time and answers all questions appropriately at this time. Care providers, pharmacy, and demographics verified/updated at this time. PCP: Stacie Specialists: Tamela, onc; Angel, radiation onc; Raúl, cardio; Trace Stone, endocrinology at [facility]; public health nutritionist for [facility] Preferred Pharmacy: [facility] Insurance: [facility] Prescription Benefit: [facility] Living Will/HPOA: Pt states that her and her were supposed to meet with unpaid intern today to complete LW/HPOA and she states they will re-schedule and have them completed thru unpaid intern. LNOK: Chinedu Reich, Living Arrangements: Pt states lives with in mobile home with 1 step into home and states no concerns at home at this time. Pt is independent with ADL's. Transportation: Pt states drives and states no concerns at home at this time. DME/HHC: Pt states has a nebulizer at home and states no need for any further DME. Pt states has had visiting nurse thru [employer] in the past. Pt states no concerns with going home at time of discharge. Pt states is disabled. Pt states does not smoke or drink ETOH. Pt states no further concerns/needs at this time. CM to follow for any further discharge planning/needs. Advised pt to ask for CM if any further questions/concerns/needs arise, voices understanding. Pt Goal: Home Plan: [place] ZACHARY GEORGES
--- NOTE | 2019-03-15 18:59 | CL.D_ITS ---
Patient Name: ANGEL ALMODOVAR Study Date: 03/15/2019 Performing: Darwin Piper MD Ht: 59 inches 150 cm : 1960 Wt: 167.8 lbs 76 kg Age: 58 Gender: female BSA: 1.71 PROCEDURE(S) PERFORMED TO89-QRM/COR/LV [id number], CORONARY OR GRAFT, INITIAL VESSEL [id number], CORONARY OR GRAFT, EACH ADD'L VESSEL [id number], CORONARY OR GRAFT, EACH ADD'L VESSEL CLINICAL PROFILE AND INDICATIONS Indications: Worsening Angina, Suspected CAD Heart Failure: None Stress/Imaging Stress/Image Study Performed: No Angina Classification Anginal Classification w/in 2 Weeks: CCS IV CAD Presentations: Unstable angina. CONCLUSIONS Normal Left Ventricular End Diastolic Pressure Normal LV size, wall motion,and systolic function LVEF: by LV gram 65 % [place] Multivessel CAD RECOMMENDATIONS Medical therapy Staged for FFR DESCRIPTION OF PROCEDURE The patient arrived to the procedure lab. The risks and benefits of the procedure as well as a full d escription of our services here and current unavailability of surgical backup were fully explained to the patient and/or their significant other prior to the catheterization. The Timeout was completed, verifying the correct patient and procedure. The patient's procedural site was prepped and draped in the usual fashion. Local anesthetic was given subcutaneously to right groin region with Lidocaine 2%. Using a modified Seldinger technique, arterial access was obtained via the right femoral artery, a 4 Fr sheath was inserted Left Coronary Artery selective angiography was performed in multiple views us ing a 4 Fr. JL5 catheter. Left Coronary Artery selective angiography was performed in multiple views using a 4 Fr. JL4 catheter. Right Coronary Artery selective angiography was then performed in multipl e views using a 4 Fr. 3DRC catheter. Left Ventriculography was performed in OCAMPO projection using a 4 Fr. Pigtail catheter. LV to AO pullback pressures were then recorded.Contrast was injected through the sheath and the Right Iliac and Femoral artery were assessed for possible closure device.T he arterial sheath was pulled and a Mynx closure device was deployed for hemostasis CORONARY ANGIOGRAPHY DOMINANCE: Co- Dominant LEFT HEART ASSESSMENT Left Ventricular Ejection Fraction: by LV Gram 60 % Normal LV wall motion Normal Left Ventricular End Diastolic Pressure LVEDP: 7 mmHg LEFT MAIN: Angiographically normal LEFT ANTERIOR DESCENDING ARTERY: PROX LAD: Previously placed stent is patent MID LAD: Previously placed stent is patent with eccentric 25% instent restenosis CIRCUMFLEX ARTERY: Mild luminal irregularities MID CIRC: Diffuse: Irregular: 50 % Stenosis OM 1: Proximal - Diffuse: Irregular: Hazy: 50 - 75 % Stenosis RIGHT CORONARY ARTERY: PROX RCA: 25 % Stenosis MID RCA: Mild luminal irregularities DISTAL RCA: Diffuse: Irregular: 25 - 50 % Stenosis RT PDA: Proximal - 25 % Stenosis VALVE FINDINGS: Normal Aortic Valve function Normal Mitral Valve function AORTIC ROOT: Angiographically normal COMPLICATIONS No Complications PROCEDURE MEDICATIONS Versed 1 mg IV Oxygen: 2 L/min via nasal cannula Adenosine drip for FFR 21.6 ml IV 03/15/2019 09:55:54 Adenosine drip for FFR 21.6 ml IV 03/15/2019 09:55:54 Adenosine drip for FFR 21.6 ml IV @ 03/15/2019 10:03:54 Heparin 6000 unit(s) IV 03/15/2019 09:45:51 Nitro 200 mcg IC 03/15/2019 09:48:10 Nitro 200 mcg IC 03/15/2019 09:48:10 IV Bolus: .9 NaCl 450 ml total 03/15/2019 10:15:03 SUMMARY OF HEMODYNAMIC DATA Time AIR REST ECG 09:08:11 AO 93/55 (70) SA 09:25:45 LV 112/-12, 6 09:33:26 LV 114/-15, 7 09:33:33 LV 116/-13, 9 09:34:37 LVp 117/-15, 11 09:34:43 AOp 116/55 (80) 09:34:48 AO 135/69 (96) 09:58:50 RM AIR REST 10:25:06 Signed By Darwin Piper MD On 03/15/2019 18:58:21 Darwin Piper MD
--- NOTE | 2019-03-17 15:13 | CASEMGMT ---
ZACHARY DC PHONE CALL DC DATE: 03/15/19 DC Disposition: Home Diagnosis on Discharge: unstable angina LACE/STRATA: 12/11 ATtempted call to phone. No answer and no machine with name identifier. Sandy BAZANN RN ACM
== END 2019-03-15 17:09 | disposition home or self-care (01) | DRG 287 ==
LOC: ED 21:58 → PCU 22:07
PROVIDERS: Admitting Provider Student in an Organized Health Care Education/Training Program; Emergency Provider Emergency Medicine; Family Provider Family Medicine; PCP Family Medicine; Visit Provider Internal Medicine
DX: R07.89 Other chest pain (principal); T82.855A Stenosis of coronary artery stent, initial encounter; M06.9 Rheumatoid arthritis, unspecified; E78.5 Hyperlipidemia, unspecified; E10.65 Type 1 diabetes mellitus with hyperglycemia; I25.10 Atherosclerotic heart disease of native coronary artery without angina pectoris; I25.5 Ischemic cardiomyopathy; I10 Essential (primary) hypertension; E66.9 Obesity, unspecified; D05.82 Other specified type of carcinoma in situ of left breast; I25.2 Old myocardial infarction; Z92.3 Personal history of irradiation; Z79.4 Long term (current) use of insulin; Z68.33 Body mass index [BMI] 33.0-33.9, adult; Z95.5 Presence of coronary angioplasty implant and graft; Z79.811 Long term (current) use of aromatase inhibitors; I51.89 Other ill-defined heart diseases
CPT/HCPCS: 36415; 71045; 80048; 80076; 82962; 83036; 83735; 84484; 85025; 85347; 85379; 93005; 93458; 93571; 93572; 93970; 94640; 97802; 99152; 99153; 99285; C1760; J0153; J7030; Q9967; A4216; C1769; C1887; C1894

== ENCOUNTER 2019-03-23 13:00 | Outpatient (RCR) | payer MEDICARE, SELFPAY ==
[2018-10-10 13:17] VITALS: BMI 35.9
[2018-12-31 00:24] VITALS: BMI 36.1
== END 2019-04-01 23:59 ==
LOC: DC 13:00
PROVIDERS: Family Provider Family Medicine; PCP Family Medicine; Visit Provider Internal Medicine Cardiovascular Disease
DX: E11.9 Type 2 diabetes mellitus without complications (principal); I12.9 Hypertensive chronic kidney disease with stage 1 through stage 4 chronic kidney disease, or unspecified chronic kidney disease; N18.3 Chronic kidney disease, stage 3 (moderate); Z71.3 Dietary counseling and surveillance; I25.5 Ischemic cardiomyopathy; I25.10 Atherosclerotic heart disease of native coronary artery without angina pectoris; E78.5 Hyperlipidemia, unspecified; I21.3 ST elevation (STEMI) myocardial infarction of unspecified site; Z95.5 Presence of coronary angioplasty implant and graft
CPT/HCPCS: 97802; 97803

== ENCOUNTER 2019-05-25 11:00 | Outpatient (RCR) | payer MEDICARE, SELFPAY ==
[2018-10-10 13:17] VITALS: BMI 35.9
[2019-03-28 15:31] VITALS: BMI 33.9
== END 2019-06-01 23:59 ==
LOC: DC 11:00
PROVIDERS: Family Provider Family Medicine; PCP Family Medicine; Visit Provider Internal Medicine Cardiovascular Disease
DX: Z71.3 Dietary counseling and surveillance (principal); E11.9 Type 2 diabetes mellitus without complications; N18.3 Chronic kidney disease, stage 3 (moderate)
CPT/HCPCS: 97803; G0108

== ENCOUNTER 2019-07-20 09:30 | Outpatient (RCR) | payer MEDICARE, SELFPAY ==
[2018-10-10 13:17] VITALS: BMI 35.9
[2019-03-28 15:31] VITALS: BMI 33.9
== END 2019-07-20 23:59 | disposition home or self-care (01) ==
LOC: DC 09:30
PROVIDERS: Family Provider Family Medicine; PCP Family Medicine; Visit Provider Internal Medicine Cardiovascular Disease
DX: Z71.3 Dietary counseling and surveillance (principal); E11.69 Type 2 diabetes mellitus with other specified complication
CPT/HCPCS: 97803; G0108

== ENCOUNTER → 2019-08-30 11:57 | Outpatient (CLI) | payer MEDICARE, SELFPAY ==
[2018-10-10 13:17] VITALS: BMI 35.9
[2019-08-16 09:10] VITALS: BMI 29.8
--- NOTE | 2019-08-31 07:27 | PFT ---
INTRODUCTION: The patient is a 59-year-old female that presents for pulmonary function studies secondary to a diagnosis of asthma. Respiratory therapy reports good patient effort. Bronchodilators were used during testing. INTERPRETATION: Forced expiration spirometry demonstrates no evidence of a large airways obstructive ventilatory defect. There was no significant response to aerosolized bronchodilators, based upon strict ATS criteria. Spirograms are of fair quality and plateau normally. Body plethysmography was performed and reveals lung volumes to be within normal limits. Diffusing capacity by single breath CO is at the lower limits of normal. IMPRESSION: Normal pulmonary function studies.
== END ==
PROVIDERS: PCP Internal Medicine; Referring Provider Internal Medicine; Visit Provider Internal Medicine
DX: J45.909 Unspecified asthma, uncomplicated (principal)
CPT/HCPCS: 94060; 94726; 94729

== ENCOUNTER 2019-09-28 19:52 | Observation (INO) | payer MEDICARE, SELFPAY ==
[2018-10-10 13:17] VITALS: BMI 35.9
[2019-09-13 12:55] VITALS: BMI 29.8
[2019-09-28 19:53] VITALS: BP 155/89; PULSE 66; RESP 16; TEMP 36.8; O2SAT 98; BMI 32.8
--- NOTE | 2019-09-28 20:11 | EKG12_ITS ---
Test Reason : CP Blood Pressure : / mmHG Vent. Rate : 068 BPM Atrial Rate : 068 BPM P-R Int : 146 ms QRS Dur : 086 ms QT Int : 440 ms P-R-T Axes : 041 031 034 degrees QTc Int : 467 ms Normal sinus rhythm Normal ECG Confirmed by HENRIK MYERS, JORGE ([id number]), newspaper or periodical editor ALEJANDRINA BRYAN ([id number]) on 10/02/2019 9:53:37 AM Referred By: SHANI Confirmed By:JORGE CHESTER MD
--- NOTE | 2019-09-28 20:15 | RAD_ITS ---
STUDY: X-RAY CHEST REASON FOR EXAM: Female, 59 years old. chest pain and vomiting TECHNIQUE: AP portable COMPARISON: March 14, 2019. FINDINGS: The lungs are clear and expanded. There is no demonstrated pleural abnormality. Normal size heart. Coronary artery stent is noted Normal mediastinum and oj. Normal visualized pulmonary arteries. Normal visualized aortic arch and descending thoracic aorta. Dorsal spine demonstrates degenerative changes. Normal visualized ribs, clavicles, and shoulders. Post surgical changes in the right upper quadrant of the abdomen. RAD/Chest 1 View (Portable) IMPRESSION: No acute cardiopulmonary pathology Electronically Signed: Trace Garcia MD at 20:28 EST , Service support ,
[2019-09-28 20:38] LABS: Absolute Lymphocyte Count 1.63 X10^3/uL (0.83-4.51); Basophil# 0.05 X10^3/uL; Basophil% 0.8 % (0-1); Eosinophil# 0.21 X10^3/uL; Eosinophils% 3.3 % (0-5); Hematocrit 43.4 % (37-47); Hemoglobin 14.8 g/dL (12.0-15.0); Lymphocyte # 1.63 X10^3/ul (4.0); Lymphocyte % 25.4 % (19-41); Mean Corp Hgb Conc 34.1 g/dL (32-36); Mean Corpuscular Hgb 29.4 pg (27.0-32.0); Mean Corpuscular Volume 86.3 fL (81-99); Mean Platelet Vol. 10.5 fl (6.2-12.0); Monocyte# 0.47 X10^3/uL; Monocyte% 7.3 % (0-10); NRBC Flagged by Analyzer 0 % (0-5); Neutrophil # 4.04 X10^3/uL (2.7-7.7); Neutrophil % 62.9 % (47-70); Platelet Count 263 K/mm3 (150-450); RBC Distribution Width CV 11.7 % (11.6-14.6); Red Blood Count 5.03 M/mm3 (4.2-5.4); White Blood Count 6.4 K/mm3 (4.4-11.0)
--- NOTE | 2019-09-28 20:51 | ED.DCSUM_ITS ---
- ER Visit Summary Date of Service: 09/28/19 Chief Complaint: Chest pain History of Present Illness: The patient is a 59 F presenting with chest pain. She states this started 1 hour ago. She has pain in her left chest radiating to her left arm and left side of her neck. She has associated nausea and vomiting. She has associated shortness of breath. She has dizziness with no syncope. She has had previous heart attack and states this feels similar. She was given aspirin per EMS. She states that at its worst the pain was 10/10 currently 6 out of 10. She has a history of diabetes and hypercholesterolemia. She is not a smoker. Physical Examination: Vitals are stable. Patient is afebrile. Alert no acute distress. HEENT exam is unremarkable. Neck is supple. Lungs are clear and equal bilaterally. Heart is regular rate and rhythm. Abdomen is soft nontender nondistended. Extremities are unremarkable. Skin is warm and dry. No focal neurologic deficit. Remainder of exam is unremarkable. Emergency Department Course and Treatment: Patient was given aspirin prior to arrival by EMS. EKG is sinus rate of 68 with no acute ischemic changes. She was given Dilaudid, Zofran IV. Chest x-ray shows no acute process. CBC unremarkable. Chemistries showed glucose 408. INR 0.9. Troponin is negative. Discussed with the hospitalist for observation. Disposition: Observation Impression: Chest pain This note was generated with [employer] dictation software. It may contain incorrect words, spelling, and punctuation that were not noted in review of the chart prior to signing ED Disposition - Plan for ED Patient: Referrals: Jose Bal MD [Primary Care Provider] -
[2019-09-28 20:56] LABS: Anion Gap 7 (5-15); BUN 16 mg/dL (7-18); Chloride 98 mmol/L (98-107); EST Glomerular Filtration Rate 60 mL/min (>60); Est Glom Filt Rate - Afr Amer 73 mL/min (>60); Estimated Creatinine Clearance 69.51 ml/min; Glucose 408 mg/dL (74-106); Potassium 3.9 mmol/L (3.5-5.1); Sodium Level 133 mmol/L (136-145)
[2019-09-28 21:02] LABS: International Normalized Ratio 0.9; Prothrombin Time (Protime)PT. 12.1 SECONDS (11.7-14.9)
[2019-09-28] MEDS: HYDROmorphone 0.5 MG/0.5 ML SYRINGE IV (21:15)
[2019-09-28] MEDS: Ondansetron 4 MG/2 ML Vial IV (21:15)
[2019-09-28 21:17] VITALS: BP 139/84; PULSE 68; RESP 18; O2SAT 96; O2SAT 97
--- NOTE | 2019-09-28 21:17 | HP.PCM_ITS ---
History of Present Illness Date of Admission: 09/28/19 Chief Complaint: Chest pain The patient is a 59 year old F with a past medical history as outlined which includes a history of non-STEMI in September 2018 with stent placement to the mid LAD. He was admitted through the ED on 09/28/2019 with a complaint of chest pain. Chest pain started around 8 PM on day of admission and was pressure-like, left-sided and radiated to the left side of her neck and her back as well as the left arm. She had assisted lightheadedness, palpitations, dizziness and nausea but no vomiting. She also had increased sweating. She states this is all she felt when she had a heart attack. Review of symptoms otherwise negative. On admission in the ED, vitals were temperature of 98.2 blood pressure of 139/84 and pulse rate of 68 as well as respiratory rate of 18. She was saturating at 97% on room air. Chemistry shows sodium of 133 was otherwise unremarkable and CBC was also unremarkable. Initial troponin was negative and chest x-ray showed no acute cardiopulmonary process. EKG showed no acute ST changes. She has been admitted to be managed for chest pain rule out ACS. [] Past Medical History Past Medical History (Chronic Problems): Chronic Problems (Last Reviewed 08/31/19 @ 12:[address] 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) Osteopenia (Chronic) Type 2 diabetes mellitus (Chronic) Asthma (Chronic) Diabetes mellitus type 2 in obese (Chronic) Carcinoma in situ, breast, ductal (Chronic) Ischemic cardiomyopathy (Chronic) Atherosclerosis of coronary artery of [place] heart without angina pectoris (Chronic) PCI-LIZETTE-Mid LAD w/ 2.5 x 28 mm and 2.5 x 12 mm Synergy Stent 10/10/18 History of coronary artery stent placement (Chronic 10/10/18) PCI-LIZETTE-Mid LAD w/ 2.5 x 28 mm and 2.5 x 12 mm Synergy Stent 10/10/18 Essential (primary) hypertension (Chronic) Hyperlipidemia (Chronic) STEMI (ST elevation myocardial infarction) (Chronic 10/10/18) Medical History: Medical History (Last Reviewed 08/31/19 @ 12:[address] Adan Tse MD) Ischemic cardiomyopathy (Chronic) I25.5 Atherosclerosis of coronary artery of [place] heart without angina pectoris (Chronic) I25.10 PCI-LIZETTE-Mid LAD w/ 2.5 x 28 mm and 2.5 x 12 mm Synergy Stent 10/10/18 Essential (primary) hypertension (Chronic) I10 Hyperlipidemia (Chronic) E78.5 STEMI (ST elevation myocardial infarction) (Chronic) Onset Date: 10/10/18 I21.3 Breast cancer C50.919 Breast lump N63.0 Hearing problem H91.90 Osteoarthritis M19.90 Seasonal allergies J30.2 Vision problem H54.7 abnormal calcium level Abnormal mammogram R92.8 Recent abnormal mammogram-scheduled for breast biopsy later this month 10/18 Asthma J45.909 Chronic headache R51 Chronic kidney disease, stage 3 N18.3 Depression F32.9 Fibromyalgia M79.7 Hyponatremia E87.1 Learning disabilities F81.9 Memory loss R41.3 Obesity E66.9 Rheumatoid arthritis M06.9 Type 2 diabetes mellitus E11.9 History of left heart catheterization (LHC) Onset Date: ~03/15/19 Z98.890 Negative FFR of LAD ISR (0.87), negative FFR of distal LCX (0.91) and negative FFR of proximal OM#2(0.98). Allergies egg Allergy (Severe, Verified 09/28/19 19:58) Anaphylaxis fish derived Allergy (Severe, Verified 09/28/19 19:58) Unknown nitrofurantoin macrocrystalline [From Macrodantin] Allergy (Severe, Verified 09/28/19 19:58) Anaphylaxis calcium carbonate [From Florical] Adverse Reaction (Severe, Verified 09/28/19 19:58) unknown family history codeine Adverse Reaction (Severe, Verified 09/28/19 19:58) unknown hallucinations oxycodone HCl [From Percocet] Adverse Reaction (Severe, Verified 09/28/19 19:58) unknown family history propoxyphene napsylate [From Darvocet-N 100] Adverse Reaction (Severe, Verified 09/28/19 19:58) unknown family history sodium fluoride [From Florical] Adverse Reaction (Severe, Verified 09/28/19 19:58) unknown family history Sulfa (Sulfonamide Antibiotics) Adverse Reaction (Severe, Verified 09/28/19 19:58) Hives family history tamoxifen Adverse Reaction (Severe, Verified 09/28/19 19:58) Hives Home Medications: Ambulatory Orders Medication Instructions Recorded Albuterol Inhaler [Ventolin Hfa] 2 puff INHALATION Q6H PRN PRN 11/10/16 Fluticasone/Salmeterol [Advair 1 puff INHALATION BID 11/10/16 250/50 Mcg Diskus] Insulin NPH Human Isophane 15 unit SQ BID 11/10/16 [Humulin N] Polyethylene Glycol 3350 [Miralax] 17 gm PO DAILY PRN 11/10/16 Trazodone HCl 200 mg PO QHS 11/10/16 Aspirin E.C. [Ecotrin] 81 mg PO DAILY@0800 tab 10/12/18 Anastrozole [Arimidex] 1 mg PO DAILY 03/14/19 nitroglycerin 0.4 mg sublingual 0.4 mg SUBLINGUAL Q5-15M PRN #25 03/28/19 tablet tab carvedilol 12.5 mg tablet 12.5 mg PO BIDCM #180 tab 03/30/19 clopidogrel 75 mg tablet 75 mg PO DAILY #90 tab 03/30/19 isosorbide mononitrate 60 mg 60 mg PO DAILY #90 tab 03/30/19 tablet,extended release 24 hr ranolazine 500 mg tablet,extended 500 mg PO BID #30 tab 03/30/19 release,12 hr rosuvastatin 40 mg tablet 40 mg PO DAILY #90 tab 03/30/19 calcium carbonate 500 mg calcium 500 mg PO BID 07/12/19 (1,250 mg) tablet insulin regular human 100 unit/mL 10 unit SUBCUT TID ml 07/12/19 injection solution meclizine 25 mg tablet 25 mg PO TID PRN 07/12/19 buspirone 10 mg tablet 10 mg PO BID 30 Days #60 tab 08/16/19 citalopram 20 mg tablet 40 mg PO DAILY #180 tab 09/28/19 Surgical History: Surgical History (Last Reviewed 08/31/19 @ 12:[address] 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 Adan Tse MD) Sister Heart disease Breast cancer Asthma Depression Mother Diabetes Heart disease Breast cancer Arthritis Father Diabetes Heart disease Arthritis Unknown No problems noted. Brother Arthritis History Items: Cancer, Diabetes, Heart Disease Paternal Family History: Family History (Last Reviewed 08/31/19 @ 12:[address] Adan Tse MD) Sister Heart disease Breast cancer Asthma Depression Mother Diabetes Heart disease Breast cancer Arthritis Father Diabetes Heart disease Arthritis Unknown No problems noted. Brother Arthritis History Items: Diabetes, Heart Disease Sibling Family History: Family History (Last Reviewed 08/31/19 @ 12:[address] Adan Tse MD) Sister Heart disease Breast cancer Asthma Depression Mother Diabetes Heart disease Breast cancer Arthritis Father Diabetes Heart disease Arthritis Unknown No problems noted. Brother Arthritis History Items: Cancer, Heart Disease Review of Systems Constitutional: Denies: Chills, Fever, Malaise, Weakness, Weight Change, Fatigue Eyes: Denies: Blurred vision HEENT: Denies: Head Aches, Sinus Congestion, Sinus Drainage Cardiovascular: Reports: Chest Pain, Chest Pressure, Heaviness, Light Headedness, Palpitations. Denies: Chest Tightness, Edema, Orthopnea, Paroxysmal Noc. Dyspnea, Syncope Respiratory: Denies: Cough, Shortness of Breath, Shortness of breath at rest, Shortness of breath upon exertion, Sputum production Gastrointestinal: Denies: Abdominal Pain, Nausea, Vomiting Genitourinary: Denies: Dysuria Musculoskeletal: Denies: Joint Pain, Joint Tenderness Skin: Denies: Rash, Wounds Neurological: Denies: Numbness, Tingling, Focal weakness Psychiatric: Denies: Anxiety, Depression, Homicidal Ideations, Suicidal Ideations Hematologic/ Lymphatic: Denies: Easy Bruising, Easy Bleeding VTE Information - Inpt Only VTE Present on Admission: No VTE Pharm Prophylaxis ordered?: Yes - Physical Exam Vitals/I&O's: Vital Signs Temp Pulse Resp BP Pulse Ox 98.2 F 66 16 155/89 H 98 02/27/20 19:53 09/28/19 19:53 09/28/19 19:53 09/28/19 19:53 09/28/19 19:53 Oxygen Delivery Method Room Air Weight: 162 lb 4.163 oz Body Mass Index (BMI) 32.8 Finger Stick Blood Glucose 362 General: Alert, Oriented x3, Cooperative, No apparent distress HEENT: Atraumatic, PERRLA, EOMI, Normocephalic Oral: Dry Mucosa Neck: Supple, No JVD, Negative Carotid Bruits Lungs: Clear to auscultation, Normal air movement Cardiovascular: Regular rate, Regular Rhythm, Normal S1, Normal S2, No murmurs Abdomen: Bowel Sounds Present, Soft, Non Tender, Non-Distended, No Hepato- splenomegaly Extremities: No clubbing, No cyanosis, No edema, Capillary Refill Less than 3 Seconds Skin: No rashes, No breakdown Musculoskeletal: No Tenderness to Palpation of Joints or Extremities Lymphatic: No Cervical, Supraclavicular, or Inguinal Adenopathy Neurological: Cranial nerves II-XII grossly intact, Neuro grossly intact, Motor Exam 5/5 strength throughout Psych/Mental Status: Normal Affect, Appropriate, Alert and oriented to time, place, person, mood and affect Laboratory Results 09/28/19 20:05: WBC 6.4, RBC 5.03, Hgb 14.8, Hct 43.4, MCV 86.3, MCH 29.4, MCHC 34.1, RDW Std Deviation 37.0, RDW Coeff of Sanjay 11.7, Plt Count 263, MPV 10.5, Immature Gran % (Auto) 0.300, Neut % (Auto) 62.9, Lymph % (Auto) 25.4, [place] % (Auto) 7.3, Eos % (Auto) 3.3, Baso % (Auto) 0.8, Absolute Neuts (auto) 4.0, Absolute Lymphs (auto) 1.63, Nucleated RBC % 0 09/28/19 20:05: PT 12.1, INR 0.9 09/28/19 20:05: Sodium 133 L, Potassium 3.9, Chloride 98, Carbon Dioxide 28.0, Anion Gap 7, BUN 16, Creatinine 1.00, Estim Creat Clear Calc 69.51, Est GFR (MDRD) Af Amer 73, Est GFR (MDRD) Non-Af 60, BUN/Creatinine Ratio 16.0, Glucose 408 H, Calcium 9.0, Troponin I < 0.015 Diagnostic Data Chest X-Ray 09/28/19 20:15 IMPRESSION: No acute cardiopulmonary pathology Electronically Signed: Trace Garcia MD at 20:28 EST , Service support , Assessment/Plan All Active Problems (Last Reviewed 08/31/19 @ 12:[address] Adan Tse MD) Unstable angina pectoris due to coronary arteriosclerosis (Ruled-out) 59-year-old female admitted with a complaint of chest pain. 1. Chest pain, to r/o ACS * she has a history of NSTEMI in 10/18, with stent placement to mid LAD * admit to PCU wtih telemetry * initial troponin is negative; will cycle * PO aspirin 81 mg daily. SL nitrate prn * Last cardiac cath with stent March 2018 which showed normal left ventricular diastolic pressure with normal left ventricular size wall motion and systolic function multi vessel [place] CAD eccentric 25% in-stent restenosis of the previously placed mid LAD stent. Proximal LAD previously placed stent was patent. Circumflex artery had 50% irregular stenosis in the mid circular region and RCA had 25% stenosis in the proximal RCA, 25 to 50% stenosis in the distal RCA and 25% stenosis in proximal right PDA. * Last echo was in September 2018 which showed EF of 45 to 50% with stage I diastolic dysfunction and hypokinesia of the left ventricle * Will discuss with cardiology about whether she would benefit from a stress test or straight cath. * 2. Nosebleed * Patient had profuse nosebleeding yesterday and her nostrils also crusted with blood. She states that the first time it has happened. * Will monitor closely. She is currently on aspirin and Plavix. Patient and think the area may have gotten too dry which resulted in the nose bleeding. * if epistaxis recurs, to consider ENT consult for further evaluation * 3. CAD s/p stents: On aspirin and Plavix as well as Ranexa. Also on Imdur. 4. Type 2 diabetes mellitus: * On NPH insulin 50 units twice daily. * Insulin sliding scale. Accu-Cheks AC at bedtime. 5. Benign essential hypertension: On carvedilol 6. Fibromyalgia: On trazodone 7. Hyperlipidemia: Rosuvastatin 8. History of breast cancer: Stable. On anastrozole DVT prophylaxis: SCDs Code status: full code. * Patient and counseled extensively about different types of CODE STATUS including full code, DNR CCA and DNR CCA. Patient elects to be full code. Total [id number] time 16 minutes. Code Visit OBSV E&M: 96303 Initial observation care L2 Procedures: 42158 Advncd Care Plan 30 Min
[2019-09-28 22:39] VITALS: BP 105/72; PULSE 60; PULSE 61; RESP 17; RESP 18; O2SAT 96
[2019-09-28 23:32] VITALS: BP 105/68; PULSE 63; RESP 14; O2SAT 96
[2019-09-29] VITALS (8 sets, daily range): BP systolic 106–117; BP diastolic 60–70; PULSE 55–78; RESP 16–18; TEMP 36.7; O2SAT 94–96; BMI 30.9; BMI 31.0
--- NOTE | 2019-09-29 00:32 | EKG12_ITS ---
Test Reason : CP ADMIT Blood Pressure : / mmHG Vent. Rate : 060 BPM Atrial Rate : 060 BPM P-R Int : 148 ms QRS Dur : 082 ms QT Int : 462 ms P-R-T Axes : 040 031 038 degrees QTc Int : 462 ms Normal sinus rhythm Normal ECG Confirmed by HENRIK MYERS, JORGE ([id number]), desk editor SANDRA FERNANDEZ ([id number]) on 10/04/2019 2:08:17 PM Referred By: DR PITTMAN Confirmed By:JORGE CHESTER MD
[2019-09-29] MEDS: Calcium (Elemental) 500 MG Tablet PO ×2 (01:23→11:20)
[2019-09-29] MEDS: busPIRone 5 MG Tablet 10 MG PO ×2 (01:23→11:20)
[2019-09-29] MEDS: traZODone 100 MG Tablet 200 MG PO (01:23)
[2019-09-29] MEDS: Ranolazine 500 MG Tablet PO ×2 (01:23→11:20)
[2019-09-29] MEDS: Insulin Lispro 100 UNIT/ML INSULN.PEN SC ×2 (01:29→11:24)
[2019-09-29 01:36] LABS: Bedside Glucose 256 mg/dL (70-110)
[2019-09-29 03:24] LABS: Absolute Lymphocyte Count 2.18 X10^3/uL (0.83-4.51); Absolute Neutrophil Count 4.6 X10^3/uL (2.0-7.7); Basophil# 0.06 X10^3/uL; Basophil% 0.8 % (0-1); Eosinophil# 0.28 X10^3/uL; Eosinophils% 3.6 % (0-5); Hematocrit 40.3 % (37-47); Hemoglobin 13.6 g/dL (12.0-15.0); Lymphocyte # 2.18 X10^3/ul (4.0); Lymphocyte % 27.8 % (19-41); Mean Corp Hgb Conc 33.7 g/dL (32-36); Mean Corpuscular Hgb 29.5 pg (27.0-32.0); Mean Corpuscular Volume 87.4 fL (81-99); Mean Platelet Vol. 10.2 fl (6.2-12.0); Monocyte# 0.68 X10^3/uL; Monocyte% 8.7 % (0-10); NRBC Flagged by Analyzer 0 % (0-5); Neutrophil # 4.62 X10^3/uL (2.7-7.7); Neutrophil % 58.8 % (47-70); Platelet Count 244 K/mm3 (150-450); RBC Distribution Width CV 11.9 % (11.6-14.6); RBC Distribution Width SD 37.9 fl (35.1-43.9); Red Blood Count 4.61 M/mm3 (4.2-5.4); White Blood Count 7.8 K/mm3 (4.4-11.0)
[2019-09-29 03:37] LABS: Anion Gap 5 (5-15); BUN 17 mg/dL (7-18); BUN/Creat Ratio 20.4 RATIO (10-20); Calcium,Total 8.9 mg/dL (8.5-10.1); Chloride 100 mmol/L (98-107); Creatinine, Serum 0.83 mg/dL (0.55-1.02); EST Glomerular Filtration Rate 74 mL/min (>60); Est Glom Filt Rate - Afr Amer 90 mL/min (>60); Glucose 267 mg/dL (74-106); Potassium 3.8 mmol/L (3.5-5.1); Sodium Level 135 mmol/L (136-145)
[2019-09-29] MEDS: Clopidogrel Bisulfate 75 MG Tablet PO (06:04)
[2019-09-29] MEDS: Aspirin E.C. 81 MG Tablet PO (06:05)
[2019-09-29 06:16] LABS: Bedside Glucose 286 mg/dL (70-110)
[2019-09-29] MEDS: Albuterol 2.5 MG/3 ML VIAL.NEB. INHALATION ×2 (07:19→13:44)
[2019-09-29] MEDS: Budesonide Respules 0.5 MG/2 ML AMPUL.NEB. INHALATION (07:19)
[2019-09-29] MEDS: Isosorbide Mononitrate 60 MG Tablet PO (11:20)
[2019-09-29] MEDS: Citalopram 40 MG TABLET PO (11:20)
[2019-09-29] MEDS: Carvedilol 12.5 MG Tablet PO (11:20)
[2019-09-29 11:30] LABS: Bedside Glucose 318 mg/dL (70-110)
--- NOTE | 2019-09-29 14:02 | STRESSREP ---
Stress Test Report Date: 09-29-2019 Procedure: Pharmacologic stress nuclear imaging study Indications: Chest pain; CAD; ischemic mediated cardiomyopathy; status post PCI Consent: Per the patient Procedure: The patient underwent pharmacologic (Regadenoson) evaluation with a peak heart rate of 79 beats per minute (49 %predicted maximal heart rate) and a peak blood pressure of 124/80 mmHg. The baseline ECG demonstrated normal sinus rhythm. The peak pharmacologic ECG demonstrated no obvious ECG changes. There were no cardiac dysrhythmias pretest, during pharmacologic infusion, or recovery. There was no complaint of chest discomfort during pharmacologic infusion or recovery. The examination was discontinued secondary to completion of protocol. Impression: 1. Pharmacologic (Regadenoson) evaluation 2. Peak pharmacologic ECG with no obvious ECG changes. 3. There were no cardiac dysrhythmias pretest, during pharmacologic infusion, or recovery. 4. Nuclear images pending Myocardial perfusion imaging study: Technique: The patient was injected with 12.0 millicuries of technetium 99m Cardiolite and subsequently rest SPECT Cardiolite nuclear imaging was obtained in the horizontal long, vertical long, and short axis views. The patient underwent pharmacologic (Regadenoson) evaluation with a peak heart rate of 79 beats per minute (49 % percent predicted maximal heart rate) and a peak blood pressure of 124/80 mmHg. The patient was injected with 33.7 millicuries of technetium 99m Cardiolite and subsequently stress SPECT Cardiolite nuclear imaging was obtained in the horizontal long, vertical long, and short axis views. A gated Cardiolite study at peak stress was obtained. Interpretation: Rest and stress SPECT Cardiolite nuclear imaging status post realignment, normalization, and attenuation correction demonstrate relative uniform tracer uptake and myocardial perfusion appearing within normal limits. There is end systolic thickening and brightening. The gated Cardiolite study demonstrates myocardial thickening and inward wall motion. The reported LVEF is 74 %. Impression: 1. Rest and stress SPECT Cardiolite nuclear imaging demonstrate relative uniform tracer uptake and myocardial perfusion appearing within normal limits. 2. The gated Cardiolite study reports an LVEF of 74 %. This note was generated with [employer] software. It may contain incorrect words, spelling, and punctuation that were not noted in checking the note before signing.
--- NOTE | 2019-09-29 14:09 | DCINST_ITS ---
You will use the following diet at home:: Cardiac Discharge Activity: Return to Normal Activity Allergies/Adverse Reactions: Allergies egg Allergy (Severe, Verified 09/28/19 19:58) Anaphylaxis fish derived Allergy (Severe, Verified 09/28/19 19:58) Unknown nitrofurantoin macrocrystalline [From Macrodantin] Allergy (Severe, Verified 09/28/19 19:58) Anaphylaxis calcium carbonate [From Florical] Adverse Reaction (Severe, Verified 09/28/19 19:58) unknown family history codeine Adverse Reaction (Severe, Verified 09/28/19 19:58) unknown hallucinations oxycodone HCl [From Percocet] Adverse Reaction (Severe, Verified 09/28/19 19:58) unknown family history propoxyphene napsylate [From Darvocet-N 100] Adverse Reaction (Severe, Verified 09/28/19 19:58) unknown family history sodium fluoride [From Florical] Adverse Reaction (Severe, Verified 09/28/19 19:58) unknown family history Sulfa (Sulfonamide Antibiotics) Adverse Reaction (Severe, Verified 09/28/19 19:58) Hives family history tamoxifen Adverse Reaction (Severe, Verified 09/28/19 19:58) Hives Medications to take at Discharge Albuterol Inhaler [Ventolin Hfa] 2 puff INHALATION Q6H PRN PRN 11/10/16 Fluticasone/Salmeterol [Advair 250/50 Mcg Diskus] 1 puff INHALATION BID 11/10/16 Insulin NPH Human Isophane [Humulin N] 15 unit SQ BID 11/10/16 Polyethylene Glycol 3350 [Miralax] 17 gm PO DAILY PRN 11/10/16 Trazodone HCl 200 mg PO QHS 11/10/16 Aspirin E.C. [Ecotrin] 81 mg PO DAILY@0800 tab 10/12/18 Anastrozole [Arimidex] 1 mg PO DAILY 03/14/19 nitroglycerin 0.4 mg sublingual tablet 0.4 mg SUBLINGUAL Q5-15M PRN #25 tab 03/28/19 carvedilol 12.5 mg tablet 12.5 mg PO BIDCM #180 tab 03/30/19 clopidogrel 75 mg tablet 75 mg PO DAILY #90 tab 03/30/19 isosorbide mononitrate 60 mg tablet,extended release 24 hr 60 mg PO DAILY #90 tab 03/30/19 ranolazine 500 mg tablet,extended release,12 hr 500 mg PO BID #30 tab 03/30/19 rosuvastatin 40 mg tablet 40 mg PO DAILY #90 tab 03/30/19 calcium carbonate 500 mg calcium (1,250 mg) tablet 500 mg PO BID 07/12/19 insulin regular human 100 unit/mL injection solution 10 unit SUBCUT TID ml 07/12/19 meclizine 25 mg tablet 25 mg PO TID PRN 07/12/19 buspirone 10 mg tablet 10 mg PO BID 30 Days #60 tab 08/16/19 citalopram 20 mg tablet 40 mg PO DAILY #180 tab 09/28/19 Primary Care Physician: Jose Bal MD [Primary Care Provider] - Please follow up with your Primary Care Physician in: in 1-2 weeks Test Results: Test results from this visit will be discussed in further detail at your follow- up appointment, if applicable. Proposed Discharge Date: 09/29/19
--- NOTE | 2019-09-29 14:10 | PCM.DC.SUM ---
Discharge Date and Diagnosis Date of Admission: 09/28/19 Date of Discharge: 09/29/19 - Primary Discharge Diagnosis Atypical chest pain with a negative stress test - Secondary Discharge Diagnosis Chronic Problems (Last Reviewed 08/31/19 @ 12:[address] 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) Osteopenia (Chronic) Type 2 diabetes mellitus (Chronic) Asthma (Chronic) Diabetes mellitus type 2 in obese (Chronic) Carcinoma in situ, breast, ductal (Chronic) Ischemic cardiomyopathy (Chronic) Atherosclerosis of coronary artery of [place] heart without angina pectoris (Chronic) PCI-LIZETTE-Mid LAD w/ 2.5 x 28 mm and 2.5 x 12 mm Synergy Stent 10/10/18 History of coronary artery stent placement (Chronic 10/10/18) PCI-LIZETTE-Mid LAD w/ 2.5 x 28 mm and 2.5 x 12 mm Synergy Stent 10/10/18 Essential (primary) hypertension (Chronic) Hyperlipidemia (Chronic) STEMI (ST elevation myocardial infarction) (Chronic 10/10/18) Hospital Course and Treatment Imaging Results: 09/29/19 05:55 Nuclear Stress Test - Chemical [NM] AM (NON MEDS) Operations: None Summary of Care Provided: The patient is a 59 year old F with past medical history is gone for non-STEMI with previous intervention to the mid LAD lesion who presented with chest pain. Admitted to monitored bed ME was ruled out with serial cardiac enzymes. Patient subsequently underwent a nuclear stress test which was negative for stress-induced ischemia discharged home and instructed to follow-up with PCP Patient also did experience nosebleed prior to her admission. This was thought to carry to patient being on dual antiplatelet therapy. Patient was advised to keep her nose moist had no recurrence during her hospital stay. - Physical Exam Vitals/I&O's: Vital Signs Temp Pulse Resp BP Pulse Ox 98.1 F 66 16 117/70 96 09/29/19 11:17 09/29/19 11:17 09/29/19 11:17 09/29/19 11:17 09/29/19 11:17 Oxygen Delivery Method Room Air Weight: 69.6 kg Body Mass Index (BMI) 30.9 Finger Stick Blood Glucose 362 Intake and Output for Last 24 Hours 09/27/19 09/28/19 09/29/19 23:59 23:59 23:59 Intake Total 100 / 100 Balance 100 / 100 General: Oriented x3 HEENT: Atraumatic Oral: Moist Mucosa Neck: Supple Lungs: Normal air movement Cardiovascular: Regular rate, Regular Rhythm Laboratory Results 09/28/19 20:05: WBC 6.4, RBC 5.03, Hgb 14.8, Hct 43.4, MCV 86.3, MCH 29.4, MCHC 34.1, RDW Std Deviation 37.0, RDW Coeff of Sanjay 11.7, Plt Count 263, MPV 10.5, Immature Gran % (Auto) 0.300, Neut % (Auto) 62.9, Lymph % (Auto) 25.4, Hard[place] % (Auto) 7.3, Eos % (Auto) 3.3, Baso % (Auto) 0.8, Absolute Neuts (auto) 4.0, Absolute Lymphs (auto) 1.63, Nucleated RBC % 0 09/28/19 20:05: PT 12.1, INR 0.9 09/28/19 20:05: Sodium 133 L, Potassium 3.9, Chloride 98, Carbon Dioxide 28.0, Anion Gap 7, BUN 16, Creatinine 1.00, Estim Creat Clear Calc 69.51, Est GFR (MDRD) Af Amer 73, Est GFR (MDRD) Non-Af 60, BUN/Creatinine Ratio 16.0, Glucose 408 H, Calcium 9.0, Troponin I < 0.015 09/29/19 01:02: Troponin I < 0.015 09/29/19 01:21: POC Glucose 256 H 09/29/19 03:15: WBC 7.8, RBC 4.61, Hgb 13.6, Hct 40.3, MCV 87.4, MCH 29.5, MCHC 33.7, RDW Std Deviation 37.9, RDW Coeff of Sanjay 11.9, Plt Count 244, MPV 10.2, Immature Gran % (Auto) 0.300, Neut % (Auto) 58.8, Lymph % (Auto) 27.8, Hardin % (Auto) 8.7, Eos % (Auto) 3.6, Baso % (Auto) 0.8, Absolute Neuts (auto) 4.6, Absolute Lymphs (auto) 2.18, Nucleated RBC % 0 09/29/19 03:15: Sodium 135 L, Potassium 3.8, Chloride 100, Carbon Dioxide 30.0, Anion Gap 5, BUN 17, Creatinine 0.83, Estim Creat Clear Calc 79.20, Est GFR (MDRD) Af Amer 90, Est GFR (MDRD) Non-Af 74, BUN/Creatinine Ratio 20.4 H, Glucose 267 H, Calcium 8.9 09/29/19 03:15: Troponin I < 0.015 09/29/19 06:08: POC Glucose 286 H 09/29/19 11:23: POC Glucose 318 H Current Medications Acetaminophen (Tylenol) 650 mg PO Q6H PRN PRN PRN Reason: Pain Score 1-10/Temp > 100.7 F Albuterol Sulfate (Ventolin Aerosols) 2.5 mg INHALATION Q4H PRN PRN PRN Reason: BRONCHODILATION Albuterol Sulfate (Ventolin Aerosols) 2.5 mg INHALATION Q6HWA.RT [facility] Last Admin: 09/29/19 13:44 Dose: 2.5 mg Documented by: Anastrozole (Arimidex) 1 mg PO DAILY [facility] Aspirin (Ecotrin) 81 mg PO DAILY@0800 [facility] Last Admin: 09/29/19 06:05 Dose: 81 mg Documented by: Atorvastatin Calcium (Lipitor) 80 mg PO QHS [facility] Budesonide (Pulmicort Aerosol) 0.5 mg INHALATION Q12H.RT [facility] Last Admin: 09/29/19 07:19 Dose: 0.5 mg Documented by: Buspirone HCl (Buspar) 10 mg PO BID [facility] Last Admin: 09/29/19 11:20 Dose: 10 mg Documented by: Calcium Carbonate (Os-Bobby 500) 500 mg PO BID [facility] Last Admin: 09/29/19 11:20 Dose: 500 mg Documented by: [facility] Admin: 09/29/19 11:20 Dose: 12.5 mg Documented by: Citalopram Hydrobromide (Celexa) 40 mg PO DAILY [facility] Last Admin: 09/29/19 11:20 Dose: 40 mg Documented by: Clopidogrel Bisulfate (Plavix) 75 mg PO DAILY [facility] Last Admin: 09/29/19 06:04 Dose: 75 mg Documented by: Glucagon () 1 mg IM .X1 PRN PRN Reason: Hypoglycemia Dextrose (Dextrose 10%-Water) 250 mls @ 999 mls/hr IV .Q16M PRN; Protocol PRN Reason: HYPOGLYCEMIA Insulin Human Lispro (Humalog Kwikpen (Bkc)) 0 unit SC ACHS [facility]; Protocol Last Admin: 09/29/19 11:24 Dose: 6 units Documented by: Isosorbide Mononitrate (Imdur) 60 mg PO DAILY [facility] Last Admin: 09/29/19 11:20 Dose: 60 mg Documented by: Meclizine HCl (Antivert) 25 mg PO TID PRN PRN PRN Reason: DIZZINESS Nitroglycerin (Nitrostat) 0.4 mg SUBLINGUAL Q5M PRN PRN Reason: CARDIAC/CHEST PAIN Ondansetron HCl (Zofran) 4 mg IV Q8H PRN PRN PRN Reason: NAUSEA/VOMITING Polyethylene Glycol (Miralax) 17 gm PO DAILY PRN PRN PRN Reason: Constipation Ranolazine (Ranexa) 500 mg PO BID [facility] Last Admin: 09/29/19 11:20 Dose: 500 mg Documented by: Sodium Chloride () 10 - 40 ml IV UD PRN PRN Reason: SALINE FLUSH Trazodone HCl (Desyrel) 200 mg PO QHS [facility] Last Admin: 09/29/19 01:23 Dose: 200 mg Documented by: Discharge Diet: Low fat/ Low Cholesterol, 1800 Calorie Control Diet Discharge Activity: Return to Normal Activity Home Medications: Medications to take at Discharge Albuterol Inhaler [Ventolin Hfa] 2 puff INHALATION Q6H PRN PRN 11/10/16 Fluticasone/Salmeterol [Advair 250/50 Mcg Diskus] 1 puff INHALATION BID 11/10/16 Insulin NPH Human Isophane [Humulin N] 15 unit SQ BID 11/10/16 Polyethylene Glycol 3350 [Miralax] 17 gm PO DAILY PRN 11/10/16 Trazodone HCl 200 mg PO QHS 11/10/16 Aspirin E.C. [Ecotrin] 81 mg PO DAILY@0800 tab 10/12/18 Anastrozole [Arimidex] 1 mg PO DAILY 03/14/19 nitroglycerin 0.4 mg sublingual tablet 0.4 mg SUBLINGUAL Q5-15M PRN #25 tab 03/28/19 carvedilol 12.5 mg tablet 12.5 mg PO BIDCM #180 tab 03/30/19 clopidogrel 75 mg tablet 75 mg PO DAILY #90 tab 03/30/19 isosorbide mononitrate 60 mg tablet,extended release 24 hr 60 mg PO DAILY #90 tab 03/30/19 ranolazine 500 mg tablet,extended release,12 hr 500 mg PO BID #30 tab 03/30/19 rosuvastatin 40 mg tablet 40 mg PO DAILY #90 tab 03/30/19 calcium carbonate 500 mg calcium (1,250 mg) tablet 500 mg PO BID 07/12/19 insulin regular human 100 unit/mL injection solution 10 unit SUBCUT TID ml 07/12/19 meclizine 25 mg tablet 25 mg PO TID PRN 07/12/19 buspirone 10 mg tablet 10 mg PO BID 30 Days #60 tab 08/16/19 citalopram 20 mg tablet 40 mg PO DAILY #180 tab 09/28/19 Primary Care Physician: Jose Bal MD [Primary Care Provider] - Please follow up with your Primary Care Physician in: in 1-2 weeks Medical Necessity - Tobacco Use Smoking Status: Never smoker Meaningful Use Info Meaningful Use Diagnoses (Choose all that apply): None applicable Code Visit OBSV E&M: 94279 Observation care discharge
== END 2019-09-29 14:09 | disposition home or self-care (01) ==
LOC: ED 20:59 → PCU 23:22
PROVIDERS: Admitting Provider Student in an Organized Health Care Education/Training Program; Emergency Provider Emergency Medicine; PCP Internal Medicine; Visit Provider Internal Medicine
DX: R07.89 Other chest pain (principal); R11.2 Nausea with vomiting, unspecified; R06.02 Shortness of breath; R42 Dizziness and giddiness; I25.2 Old myocardial infarction; E11.42 Type 2 diabetes mellitus with diabetic polyneuropathy; F41.9 Anxiety disorder, unspecified; E78.5 Hyperlipidemia, unspecified; F32.9 Major depressive disorder, single episode, unspecified; M19.90 Unspecified osteoarthritis, unspecified site; N18.3 Chronic kidney disease, stage 3 (moderate); I12.9 Hypertensive chronic kidney disease with stage 1 through stage 4 chronic kidney disease, or unspecified chronic kidney disease; M79.7 Fibromyalgia; M06.9 Rheumatoid arthritis, unspecified; E11.22 Type 2 diabetes mellitus with diabetic chronic kidney disease; I25.10 Atherosclerotic heart disease of native coronary artery without angina pectoris; J45.909 Unspecified asthma, uncomplicated; I25.5 Ischemic cardiomyopathy; Z79.899 Other long term (current) drug therapy; Z79.02 Long term (current) use of antithrombotics/antiplatelets; Z79.4 Long term (current) use of insulin; Z79.82 Long term (current) use of aspirin
CPT/HCPCS: 71045; 78452; 80048; 82962; 84484; 85025; 85610; 93005; 93017; 94640; 96374; 96375; 99218; 99285; A9500; A4216; G0378; J2405; J2785

== ENCOUNTER → 2019-10-13 | Outpatient (CLI) | payer MEDICARE, SELFPAY ==
[2018-10-10 13:17] VITALS: BMI 35.9
[2019-10-13 13:50] VITALS: BMI 30.9
[2019-10-13 15:24] LABS: Absolute Lymphocyte Count 1.46 X10^3/uL (0.83-4.51); Absolute Neutrophil Count 5.2 X10^3/uL (2.0-7.7); Basophil# 0.05 X10^3/uL; Basophil% 0.7 % (0-1); Eosinophils% 2.7 % (0-5); Hematocrit 43.4 % (37-47); Hemoglobin 14.5 g/dL (12.0-15.0); Lymphocyte # 1.46 X10^3/ul (4.0); Lymphocyte % 19.9 % (19-41); Mean Corp Hgb Conc 33.4 g/dL (32-36); Mean Corpuscular Hgb 29.4 pg (27.0-32.0); Mean Corpuscular Volume 87.9 fL (81-99); Mean Platelet Vol. 11.1 fl (6.2-12.0); Monocyte# 0.42 X10^3/uL; Monocyte% 5.7 % (0-10); NRBC Flagged by Analyzer 0 % (0-5); Neutrophil # 5.19 X10^3/uL (2.7-7.7); Neutrophil % 70.6 % (47-70); Platelet Count 259 K/mm3 (150-450); RBC Distribution Width CV 11.9 % (11.6-14.6); RBC Distribution Width SD 38.2 fl (35.1-43.9); Red Blood Count 4.94 M/mm3 (4.2-5.4); White Blood Count 7.4 K/mm3 (4.4-11.0)
[2019-10-13 15:37] LABS: Prolactin 8.4 ng/mL
== END | disposition home or self-care (01) ==
LOC: BIMLAB 14:13
PROVIDERS: PCP Internal Medicine; Referring Provider Internal Medicine; Visit Provider Internal Medicine
DX: N64.52 Nipple discharge (principal); N61.0 Mastitis without abscess
CPT/HCPCS: 36415; 84146; 85025

== ENCOUNTER → 2019-10-31 | Outpatient (CLI) | payer MEDICARE, SELFPAY ==
[2018-10-10 13:17] VITALS: BMI 35.9
[2019-08-14 09:26] VITALS: BMI 29.8
[2019-10-19 10:50] VITALS: BMI 31.3
--- NOTE | 2019-10-31 10:35 | BI_ITS ---
MAMMOGRAPHY - BILATERAL SCREENING REASON FOR EXAM: Female, 59 years old. Routine annual screening examination. PERTINENT HISTORY: Personal history of breast cancer. Sisters with breast cancer. Mother with breast cancer. Grandmother with breast cancer. TECHNIQUE: Digital bilateral breast brigette (3D mammographic acquisition) in the CC and MLO projections. 2-D mediolateral oblique (MLO) and craniocaudad (CC) views of both breasts were obtained. CAD: Full Field Digital Mammography with Computer Added Detection was performed. COMPARISON: Comparison is made with prior examination dated October 26, 2018. FINDINGS: Breast Composition: The breasts are heterogeneously dense, which may obscure small masses. There are no dominant masses or suspicious calcifications. The patient is status post lumpectomy in the slightly upper deep portion of the left breast with resultant postoperative scarring. A tissue clip marker is also seen along the posterior aspect of the postoperative region. No other significant abnormalities are identified. There has been no significant change since the prior study. BI/SCREEN MAMM (CAD) W/BRIGETTE BILAT IMPRESSION: Stable bilateral screening mammogram. Yearly follow-up mammogram recommended. (A) ASSESSMENT CATEGORY: BIRADS Category 2: Benign. A letter regarding these results will be sent to the patient by the facility within 30 days. Approximately 10% of breast cancers are not detected by mammography. A normal mammogram should not delay biopsy of a clinically suspicious abnormality. [id number] Electronically Signed: Jay Guzmán, at 11:29 EDT , Service support ,
== END | disposition home or self-care (01) ==
PROVIDERS: Family Provider Internal Medicine; PCP Internal Medicine; Referring Provider Internal Medicine Hematology & Oncology; Visit Provider Internal Medicine Hematology & Oncology
DX: Z12.31 Encounter for screening mammogram for malignant neoplasm of breast (principal); C50.919 Malignant neoplasm of unspecified site of unspecified female breast
CPT/HCPCS: 77063; 77067

== ENCOUNTER → 2020-05-03 | Outpatient (CLI) | payer MEDICARE, SELFPAY ==
[2018-10-10 13:17] VITALS: BMI 35.9
[2020-04-22 11:37] VITALS: BMI 31.1
--- NOTE | 2020-05-03 12:54 | CDU_ITS ---
Reason For Study: DIZZINESS Rt. Velocities/BP Lt. Velocities/BP Prox CCA 88/17 cm/sec. Prox CCA 78/20 cm/sec. Mid CCA 93/20 cm/sec. Mid CCA 82/19 cm/sec. Dist CCA 75/19 cm/sec. Dist CCA 79/18 cm/sec. Prox ICA 73/15 cm/sec. Prox ICA 63/22 cm/sec. Mid ICA 50/20 cm/sec. Mid ICA 70/26 cm/sec. Dist ICA 57/22 cm/sec. Dist ICA 63/20 cm/sec. Rt. ICA/CCA = .8. Lt. ICA/CCA = .9. Prox ECA 71/10 cm/sec. Prox ECA 67/7 cm/sec. Rt. Vert. 44/20 cm/sec. Lt. Vert. 32/13 cm/sec. Right Extracranial There is homogeneous, smooth atherosclerotic plaque noted in the right common carotid artery. There is intimal thickening but no significant atherosclerotic plaque noted in the right internal carotid artery. There is intimal thickening but no significant atherosclerotic plaque noted in the right external carotid artery. Antegrade flow is noted in the right vertebral artery. Left Extracranial There is homogeneous, smooth atherosclerotic plaque noted in the left common carotid artery. There is heterogeneous, irregular atherosclerotic plaque noted in the left internal carotid artery. There is homogeneous, smooth atherosclerotic plaque noted in the left external carotid artery. Antegrade flow is noted in the left vertebral artery. Procedure Carotid Duplex [id number]. Exam performed in department. Interpretation Summary Intimal thickening of the proximal right internal carotid artery with less than 50% stenosis <50% stenosis right external carotid Irregular heterogenous plaque proximal left internal carotid with less than 50% stenosis <50% stenosis left external carotid Patent and antegrade vertebrals bilaterally Ordering Physician: Darrius Torrez Referring Physician: Jsoe Bal Performed By: Patricia Zimmerman, RDCS, RVT
== END | disposition home or self-care (01) ==
LOC: CVS 12:54
PROVIDERS: PCP Internal Medicine; Referring Provider Nurse Practitioner Family; Visit Provider Nurse Practitioner Family
DX: I65.22 Occlusion and stenosis of left carotid artery (principal); R00.2 Palpitations; R42 Dizziness and giddiness
CPT/HCPCS: 93225; 93226; 93880

== ENCOUNTER 2020-05-08 23:25 | Observation (INO) | payer MEDICARE, SELFPAY ==
[2018-10-10 13:17] VITALS: BMI 35.9
[2020-04-22 11:37] VITALS: BMI 31.1
[2020-05-08 23:26] VITALS: BP 150/99; PULSE 81; RESP 18; TEMP 36.8; O2SAT 98; BMI 33.0
--- NOTE | 2020-05-08 23:28 | ED.RN ---
CALLED FOR EKG PER RN REQUEST, PULLED OLD EKGS FOR
--- NOTE | 2020-05-08 23:39 | ED.DCSUM_ITS ---
History of Present Illness Chief Complaint: Chest Pain Informant: Patient Onset: Today Current Severity: Mild Maximum Severity: Moderate Narrative: Patient presents with chest pain and probable syncope. Patient had a STEMI in September 2018 and had 2 stents placed. Since that time she has had ongoing chest pain. She had a repeat heart cath in March 2019 that showed no new lesions. In September 2019 she had a stress test that was normal. She was recently seen by physicians mailroom assistant at her [employer] and [employer] office. They asked her to increase her isosorbide and hold her Ranexa to see if this would help her pain. She also wore a 48-hour Holter monitor that was unremarkable. Patient tells me that she held her citalopram, not her Ranexa. Tonight when she had recurrent pain she did take 1 nitro and states that she woke up on the floor. EMS call had gone out as it unresponsive but breathing patient. Patient is unsure if she passed out or if she was knocked to the floor by her dog. - Past Medical History (1) Anxiety and depression Status: Chronic (2) Asthma Status: Chronic (3) Atherosclerosis of coronary artery of [place] heart without angina pectoris Status: Chronic Comment: PCI-LIZETTE-Mid LAD w/ 2.5 x 28 mm and 2.5 x 12 mm Synergy Stent 10/10/18 (4) Diabetes mellitus type 2 in obese Status: Chronic (5) Essential (primary) hypertension Status: Chronic (6) History of coronary artery stent placement Status: Chronic Comment: PCI-LIZETTE-Mid LAD w/ 2.5 x 28 mm and 2.5 x 12 mm Synergy Stent 10/10/18 (7) Hyperlipidemia Status: Chronic (8) Ischemic cardiomyopathy Status: Chronic (9) Polyneuropathy due to type 2 diabetes mellitus Status: Chronic (10) Type 2 diabetes mellitus Status: Chronic Past Medical History - Allergies and Home Meds Allergies/Adverse Reactions: Allergies egg Allergy (Severe, Verified 05/08/20 23:30) Anaphylaxis fish derived Allergy (Severe, Verified 05/08/20 23:30) Unknown nitrofurantoin macrocrystalline [From Macrodantin] Allergy (Severe, Verified 05/08/20 23:30) Anaphylaxis calcium carbonate [From Florical] Adverse Reaction (Severe, Verified 05/08/20 23:30) unknown family history codeine Adverse Reaction (Severe, Verified 05/08/20 23:30) unknown hallucinations oxycodone HCl [From Percocet] Adverse Reaction (Severe, Verified 05/08/20 23:30) unknown family history propoxyphene napsylate [From Darvocet-N 100] Adverse Reaction (Severe, Verified 05/08/20 23:30) unknown family history sodium fluoride [From Florical] Adverse Reaction (Severe, Verified 05/08/20 23:30) unknown family history Sulfa (Sulfonamide Antibiotics) Adverse Reaction (Severe, Verified 05/08/20 23:30) Hives family history tamoxifen Adverse Reaction (Severe, Verified 05/08/20 23:30) Hives Primary Care Physician: Jose Bal MD [Primary Care Provider] - Prior records reviewed: Yes Surgical History: cholecystectomy, hysterectomy - CRIS/BSO for endometriosis and bleeding, - - ear surgery and eye surgery Lives: Spouse/ Significant Other Smoking Status: Never smoker - Family History Maternal Family History: Family History (Last Reviewed 03/29/20 @ 14:49 by Estephania Cleveland) Sister Heart disease Breast cancer Asthma Depression Mother Diabetes Heart disease Breast cancer Arthritis Father Diabetes Heart disease Arthritis Unknown No problems noted. Brother Arthritis Family History: Reports: Cancer, Diabetes, Heart Disease Paternal Family History: Family History (Last Reviewed 03/29/20 @ 14:49 by Estephania Cleveland) Sister Heart disease Breast cancer Asthma Depression Mother Diabetes Heart disease Breast cancer Arthritis Father Diabetes Heart disease Arthritis Unknown No problems noted. Brother Arthritis Family History: Reports: Diabetes, Heart Disease Sibling Family History: Family History (Last Reviewed 03/29/20 @ 14:49 by Estephania Cleveland) Sister Heart disease Breast cancer Asthma Depression Mother Diabetes Heart disease Breast cancer Arthritis Father Diabetes Heart disease Arthritis Unknown No problems noted. Brother Arthritis Family History: Reports: Cancer, Heart Disease Review of Systems General: Denies: Chills, Fever Eyes: Denies: Visual changes - bilaterally ENT: Denies: Bilateral ear pain Cardiovascular: Reports: Chest pain Respiratory: Reports: Dyspnea. Denies: Cough Gastrointestinal: Denies: Abdominal pain, Nausea, Vomiting, Diarrhea Musculoskeletal: Denies: Swelling, Extremity Pain Skin: Denies: Rash Neurological: Denies: Headache Hematologic: Denies: Easy bruising Allergy: Denies: Uticaria Physical Exam Vital Signs/Narrative: Vital Signs Temp Pulse Resp BP Pulse Ox 05/08/20 23:26 98.2 F 81 18 150/99 H 98 Inital Vital Signs reviewed: Yes General: Well nourished, Well developed Head: Normocephalic ENT: Moist mucous membranes Neck: Supple Cardiovascular: Regular rate, Regular rhythm Respiratory: No distress, CTA bilaterally Abdomen: Soft, Nontender, Nondistended Extremities: Nontender, No edema Skin: Normal color Neurological: Alert, Oriented x3, Normal Strength, Normal Sensation Psychological: Normal affect Diagnostic/Tx/Re-eval Impressions Chest X-Ray 05/08/20 23:39 IMPRESSION: No acute cardiopulmonary disease. No significant interval change. Electronically Signed: Radha Darling MD at 23:54 EDT , Service support , Brain CT 05/09/20 00:13 IMPRESSION: There is no acute intracranial pathology. There is no significant interval change. Electronically Signed: Radha Darling MD at 0:46 EDT , Service support , 05/08/20 23:39 Chest 1 View (Portable) [RAD] Stat 05/09/20 00:13 CT Head [Brain/Head without Contrast] [CT] Stat Laboratory Results 05/08/20 05/08/20 05/08/20 23:30 23:30 23:30 WBC 7.1 RBC 4.77 Hgb 13.8 Hct 42.4 MCV 88.9 MCH 28.9 MCHC 32.5 RDW Std Deviation 39.0 RDW Coeff of Sanjay 12.0 Plt Count 229 MPV 10.8 Immature Gran % (Auto) 0.700 Neut % (Auto) 52.5 Lymph % (Auto) 32.6 [place] % (Auto) 8.1 Eos % (Auto) 5.4 H Baso % (Auto) 0.7 Absolute Neuts (auto) 3.7 Absolute Lymphs (auto) 2.31 Nucleated RBC % 0 D-Dimer Quant (PE/DVT) 0.29 Sodium 142 Potassium 3.7 Chloride 106 Carbon Dioxide 30.0 Anion Gap 6 BUN 22 H Creatinine 1.61 H Estim Creat Clear Calc 26.36 Est GFR (MDRD) Af Amer 42 L Est GFR (MDRD) Non-Af 35 L BUN/Creatinine Ratio 13.7 Glucose 126 H Calcium 8.8 Troponin I < 0.015 Urine Color Urine Clarity Urine pH Ur Specific Hostetter Urine Protein Urine Glucose (UA) Urine Ketones Urine Occult Blood Urine Nitrite Urine Bilirubin Urine Urobilinogen Ur Leukocyte Esterase Urine RBC Urine WBC Ur Squamous Epith Cells Urine Bacteria Urine Mucus 05/09/20 00:30 WBC RBC Hgb Hct MCV MCH MCHC RDW Std Deviation RDW Coeff of Sanjay Plt Count MPV Immature Gran % (Auto) Neut % (Auto) Lymph % (Auto) [place] % (Auto) Eos % (Auto) Baso % (Auto) Absolute Neuts (auto) Absolute Lymphs (auto) Nucleated RBC % D-Dimer Quant (PE/DVT) Sodium Potassium Chloride Carbon Dioxide Anion Gap BUN Creatinine Estim Creat Clear Calc Est GFR (MDRD) Af Amer Est GFR (MDRD) Non-Af BUN/Creatinine Ratio Glucose Calcium Troponin I Urine Color Yellow Urine Clarity Clear Urine pH 8.0 Ur Specific Hostetter 1.010 Urine Protein 15 H Urine Glucose (UA) Normal Urine Ketones Negative Urine Occult Blood Negative Urine Nitrite Negative Urine Bilirubin Negative Urine Urobilinogen Normal Ur Leukocyte Esterase 25 H Urine RBC 0 SEEN Urine WBC 0-5 SEEN Ur Squamous Epith Cells 0 SEEN Urine Bacteria 2+ Urine Mucus 0 SEEN - EKG Initial EKG Interpretation: Sinus Rhythm - Sinus at 78 with no acute ischemia. - Medical Decision Making I was called back to the room as the patient was getting more agitated. She was attempting to pull out her IV. She was tearful and was asking why her father was not here with her. is now at bedside and states that she has had increased confusion since these recent medication adjustments were made. I am concerned that the patient stopped the wrong medication. According to the cardiology visit notes patient was to double her isosorbide which she states she did do. She was to stop her Ranexa, however the patient states that she stopped her citalopram. Suddenly stopping her citalopram could make her more confused. believes that she stopped her citalopram a week or 2 ago. states he was present at the house tonight when she had her syncopal episode. He states that he caught her and lowered her to the floor. She was unconscious for approximately 6 to 8 minutes. He states he was checking her pulse and her breathing throughout that time and they seem to be stable. He checked her blood sugar and that was normal. He does state that she was clench ing her jaw very tightly and grinding her teeth. As she was starting to come around she did have some tonic-clonic like shaking activity. Blood work at this time is only significant for slight increase in her creatinine up to 1.6. This is treated with IV fluids. D-dimer and troponin are negative. Urinalysis shows 2+ bacteria but 0-5 white cells, no nitrites. This is sent for a culture. CT head is unremarkable. At this time patient remains to be significantly confused. I am concerned that this is because of mismanagement of her medications. I will recommend hospitalization overnight for mental status observation and ensuring her medications are adjusted appropriately. ED Disposition - Plan for ED Patient: Disposition: Acute Care [facility] Diagnosis: Delirium, Syncope, Chest pain, Confusion Referrals: Jose Bal MD [Primary Care Provider] -
--- NOTE | 2020-05-08 23:39 | RAD_ITS ---
STUDY: X-RAY CHEST REASON FOR EXAM: Female, 60 years old. CP TECHNIQUE: Single AP portable view of the chest. COMPARISON: 09/28/2019. 03/14/2019 FINDINGS: There are superimposed monitor leads. The lungs are clear and expanded. There is no demonstrated pleural abnormality. Normal size heart. Normal mediastinum and oj. Normal visualized pulmonary arteries. There is atherosclerosis of the aortic arch. There are diffuse degenerative changes of the visualized thoracic spine. There are degenerative changes of the acromioclavicular joints. There is no demonstrated abnormality of the visualized soft tissue structures of the upper abdomen. RAD/Chest 1 View (Portable) IMPRESSION: No acute cardiopulmonary disease. No significant interval change. Electronically Signed: Radha Darling MD at 23:54 EDT , Service support ,
--- NOTE | 2020-05-08 23:39 | EKG12_ITS ---
Test Reason : CP Blood Pressure : / mmHG Vent. Rate : 078 BPM Atrial Rate : 078 BPM P-R Int : 152 ms QRS Dur : 084 ms QT Int : 384 ms P-R-T Axes : 056 043 042 degrees QTc Int : 437 ms Normal sinus rhythm Normal ECG Confirmed by HENRIK MYERS, JORGE ([id number]), publishing editor SANDRA FERNANDEZ ([id number]) on 05/14/2020 12:30:11 PM Referred By: Lora Rincon Confirmed By:JORGE CHESTER MD
[2020-05-08 23:48] LABS: Absolute Lymphocyte Count 2.31 X10^3/uL (0.83-4.51); Absolute Neutrophil Count 3.7 X10^3/uL (2.0-7.7); Basophil# 0.05 X10^3/uL; Basophil% 0.7 % (0-1); Eosinophil# 0.38 X10^3/uL; Eosinophils% 5.4 % (0-5); Hematocrit 42.4 % (37-47); Hemoglobin 13.8 g/dL (12.0-15.0); Lymphocyte # 2.31 X10^3/ul (4.0); Lymphocyte % 32.6 % (19-41); Mean Corp Hgb Conc 32.5 g/dL (32-36); Mean Corpuscular Hgb 28.9 pg (27.0-32.0); Mean Corpuscular Volume 88.9 fL (81-99); Mean Platelet Vol. 10.8 fl (6.2-12.0); Monocyte# 0.57 X10^3/uL; Monocyte% 8.1 % (0-10); NRBC Flagged by Analyzer 0 % (0-5); Neutrophil # 3.72 X10^3/uL (2.7-7.7); Neutrophil % 52.5 % (47-70); Platelet Count 229 K/mm3 (150-450); Red Blood Count 4.77 M/mm3 (4.2-5.4); White Blood Count 7.1 K/mm3 (4.4-11.0)
[2020-05-08] MEDS: Aspirin 81 MG TAB.CHEW 324 MG PO (23:48)
[2020-05-08] MEDS: 0.9% Normal Saline 1,000 ML 150 ML IV (23:49)
[2020-05-08 23:53] LABS: D-Dimer Quantitative (DVT/PE) 0.29 FEU/ug/m (0.27-0.49)
[2020-05-09] VITALS (14 sets, daily range): BP systolic 123–175; BP diastolic 75–111; PULSE 64–90; RESP 12–18; TEMP 36.4–36.8; O2SAT 97–100; BMI 32.6; BMI 32.7
[2020-05-09] LABS: Anion Gap 6 (5-15); BUN 22 mg/dL (7-18); BUN/Creat Ratio 13.7 RATIO (10-20); Calcium,Total 8.8 mg/dL (8.5-10.1); Chloride 106 mmol/L (98-107); Creatinine, Serum 1.61 mg/dL (0.55-1.02); EST Glomerular Filtration Rate 35 mL/min (>60); Est Glom Filt Rate - Afr Amer 42 mL/min (>60); Estimated Creatinine Clearance 26.36 ml/min; Glucose 126 mg/dL (74-106); Potassium 3.7 mmol/L (3.5-5.1); Sodium Level 142 mmol/L (136-145)
--- NOTE | 2020-05-09 00:13 | CT_ITS ---
STUDY: CT BRAIN WITHOUT CONTRAST REASON FOR EXAM: Female, 60 years old. CONFUSION/? SEIZURE. Hx of asthma, heart stent, diabetes, HTN and breast cancer RADIATION DOSAGE (If Supplied By Facility): CTDIvol = ( 44.99 ) mGy, DLP = ( 745.49 ) mGycm TECHNIQUE: Transaxial CT imaging of the brain was performed without administration of intravenous contrast material. Individualized dose optimization techniques were used for this CT. COMPARISON: CT brain noncontrast 11/06/2018 FINDINGS: Normal soft tissue structures. Normal calvarium. Normal size ventricles and extra-axial spaces for the patient''s age. Stable extra-axial calcification adjacent to the right occipital lobe. Normal white matter tracts of the cerebral hemispheres. There are small punctate calcifications of the basal ganglia which are seen in the aging brain as a normal variant. Normal brainstem. Normal cerebellum. There is no intracranial hemorrhage. There are no findings of an acute ischemic infarction. CASTELLANOS thickening left maxillary sinus consistent with chronic disease. The bilateral mastoid air cells and ossicles are unopacified.. CT/Brain/Head without Contrast IMPRESSION: There is no acute intracranial pathology. There is no significant interval change. Electronically Signed: Radha Darling MD at 0:46 EDT , Service support ,
--- NOTE | 2020-05-09 00:23 | ED.RN ---
PT'S MEDICATIONS CHANGED RECENTLY. SHE DOES NOT HAVE HER INSULIN WITH HER AND DOES NOT KNOW HER DOSAGES. MED LIST IS INCOMPLETE.
[2020-05-09 00:38] LABS: Mucous, Urine 0 SEEN /hpf (<or=2+); Red Blood Cells-Urine 0 SEEN /hpf (0-5); Squamous Epithelial Cells - UA 0 SEEN /hpf (5-10)
[2020-05-09 00:39] LABS: Glucose, Dipstick Normal (Normal); Ketone-Dipstick Negative (Negative); Leukocyte Esterase-Dipstick 25 /ul (Negative); Nitrite-Dipstick Negative (Negative); Occult Blood-Urine Negative /ul (Negative); Protein-Dipstick 15 mg/dl (Negative); Urine Bilirubin Dipstick Negative (Negative); Urine Urobilinogen Normal (Normal)
[2020-05-09 00:40] LABS: Color, Urine Yellow (Yellow); Urine Clarity Clear (Clear)
[2020-05-09] MEDS: Citalopram 20 MG Tablet PO (00:45)
[2020-05-09] MEDS: 0.9% Normal Saline 1,000 ML 999 ML IV (00:45)
[2020-05-09 00:47] LABS: Bacteria 2+ /hpf (None Seen); White Blood Cells 0-5 SEEN /hpf (0-5)
--- NOTE | 2020-05-09 01:51 | HP.PCM_ITS ---
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 insulin use: with care home use Diabetes mellitus complication status: with hyperglycemia Qualified Code(s): E11.65 - Type 2 diabetes mellitus with hyperglycemia (7) Diabetes mellitus type 2 in obese Status: Chronic (8) Carcinoma in situ, breast, ductal Status: Chronic (9) Ischemic cardiomyopathy Status: Chronic (10) Atherosclerosis of coronary artery of [place] heart without angina pectoris Status: Chronic Qualifiers: Coronary Disease-Associated Artery/Lesion type: [place] artery Qualified Code(s): I25.10 - Atherosclerotic heart disease of [place] coronary artery without angina pectoris Comment: PCI-LIZETTE-Mid LAD w/ 2.5 x 28 mm and 2.5 x 12 mm Synergy Stent 10/10/18 (11) History of coronary artery stent placement Status: Chronic Comment: PCI-LIZETTE-Mid LAD w/ 2.5 x 28 mm and 2.5 x 12 mm Synergy Stent 10/10/18 (12) Essential (primary) hypertension Status: Chronic (13) Hyperlipidemia Status: Chronic Qualifiers: Hyperlipidemia type: pure hypercholesterolemia Qualified Code(s): E78.00 - Pure hypercholesterolemia, unspecified; E78.0 - Pure hypercholesterolemia (14) STEMI (ST elevation myocardial infarction) Status: Chronic Qualifiers: Involved coronary artery: LAD coronary artery Qualified Code(s): I21.02 - ST elevation (STEMI) myocardial infarction involving left anterior descending coronary artery History of Present Illness Date of Admission: 05/09/20 Chief Complaint: Reported syncope, chest pain. The patient is a 60 year old F with past medical history as mentioned above presented to the emergency room because of reported syncope and chest pain. At this time, patient is confused and was not able to provide detailed history. Patient's was at the bedside and he provided the information. According to the patient's , last evening her blood pressure was elevated and he asked his to go to the hospital to be checked. The mentioned that his 's blood pressure has been high lately and he is not sure if his is taking her medication appropriately. Patient's mentioned that patient felt dizzy and she laid flat on the floor and was unresponsive for several minutes. mentioned that her blood glucose was fine, her blood pressure was elevated. When she started to wake up, she started to clenching her teeth and started shaking in the upper part of her body including her upper extremities which was associated with drooling on the mouth corner. Patient had a history of STEMI back in September 2018 and she had 2 stents placed and since then, she has been having recurrent chest pains. She had cardiac catheterization on March 2019 that showed no significant new lesions. 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 Apparently, patient is not following the instructions that she was given to change her medications. She thinks that she was asked to stop citalopram not Ranexa. In the emergency department, patient was confused, her blood pressure was elevated, other vital signs were stable. Routine blood work was remarkable for BUN of 22 and creatinine of 1.61, otherwise normal. EKG revealed normal sinus rhythm, normal MD interval, normal QRS, normal QTC, no acute ischemic changes. Troponin is negative. Urinalysis revealed no evidence of infection. Chest x-ray showed no acute findings. CT scan brain showed no acute infarct or hemorrhage. She is being admitted for confusion/encephalopathy of unclear etiology, possible seizure cannot be ruled out. Past Medical History Past Medical History (Chronic Problems): Chronic Problems (Last Reviewed 03/29/20 @ 14:49 by Estephania Cleveland) Noncompliance with diabetes treatment (Chronic) Anxiety and depression (Chronic) Polyneuropathy due to type 2 diabetes mellitus (Chronic) Osteopenia (Chronic) Type 2 diabetes mellitus (Chronic) Asthma (Chronic) Diabetes mellitus type 2 in obese (Chronic) Carcinoma in situ, breast, ductal (Chronic) Ischemic cardiomyopathy (Chronic) Atherosclerosis of coronary artery of [place] heart without angina pectoris (Chronic) PCI-LIZETTE-Mid LAD w/ 2.5 x 28 mm and 2.5 x 12 mm Synergy Stent 10/10/18 History of coronary artery stent placement (Chronic 10/10/18) PCI-LIZETTE-Mid LAD w/ 2.5 x 28 mm and 2.5 x 12 mm Synergy Stent 10/10/18 Essential (primary) hypertension (Chronic) Hyperlipidemia (Chronic) STEMI (ST elevation myocardial infarction) (Chronic 10/10/18) Medical History: Medical History (Last Updated 05/09/20 @ 01:[address] Lora Rincon MD) Ischemic cardiomyopathy (Chronic) I25.5 Atherosclerosis of coronary artery of [place] heart without angina pectoris (Chronic) I25.10 PCI-LIZETTE-Mid LAD w/ 2.5 x 28 mm and 2.5 x 12 mm Synergy Stent 10/10/18 Essential (primary) hypertension (Chronic) I10 Hyperlipidemia (Chronic) E78.5 STEMI (ST elevation myocardial infarction) (Chronic) Onset Date: 10/10/18 I21.3 Breast cancer C50.919 Osteoarthritis M19.90 Seasonal allergies J30.2 Abnormal mammogram R92.8 Recent abnormal mammogram-scheduled for breast biopsy later this month 10/18 Asthma J45.909 Chronic headache R51 Chronic kidney disease, stage 3 N18.3 Depression F32.9 Learning disabilities F81.9 Memory loss R41.3 Obesity E66.9 Rheumatoid arthritis M06.9 Type 2 diabetes mellitus E11.9 History of left heart catheterization (LHC) Onset Date: ~03/15/19 Z98.890 Negative FFR of LAD ISR (0.87), negative FFR of distal LCX (0.91) and negative FFR of proximal OM#2(0.98). Allergies egg Allergy (Severe, Verified 05/08/20 23:30) Anaphylaxis fish derived Allergy (Severe, Verified 05/08/20 23:30) Unknown nitrofurantoin macrocrystalline [From Macrodantin] Allergy (Severe, Verified 05/08/20 23:30) Anaphylaxis calcium carbonate [From Florical] Adverse Reaction (Severe, Verified 05/08/20 23:30) unknown family history codeine Adverse Reaction (Severe, Verified 05/08/20 23:30) unknown hallucinations oxycodone HCl [From Percocet] Adverse Reaction (Severe, Verified 05/08/20 23:30) unknown family history propoxyphene napsylate [From Darvocet-N 100] Adverse Reaction (Severe, Verified 05/08/20 23:30) unknown family history sodium fluoride [From Florical] Adverse Reaction (Severe, Verified 05/08/20 23:30) unknown family history Sulfa (Sulfonamide Antibiotics) Adverse Reaction (Severe, Verified 05/08/20 23:30) Hives family history tamoxifen Adverse Reaction (Severe, Verified 05/08/20 23:30) Hives Home Medications: Ambulatory Orders Medication Instructions Recorded Albuterol Inhaler [Ventolin Hfa] 2 puff INHALATION Q6H PRN PRN 11/10/16 Fluticasone/Salmeterol [Advair 1 puff INHALATION BID 11/10/16 250/50 Mcg Diskus] Insulin NPH Human Isophane 15 unit SQ BID 11/10/16 [Humulin N] Polyethylene Glycol 3350 [Miralax] 17 gm PO DAILY PRN 11/10/16 Aspirin E.C. [Ecotrin] 81 mg PO DAILY@0800 tab 10/12/18 Anastrozole [Arimidex] 1 mg PO DAILY 03/14/19 nitroglycerin 0.4 mg sublingual 0.4 mg SUBLINGUAL Q5-15M PRN #25 03/28/19 tablet tab calcium carbonate 500 mg calcium 500 mg PO BID 07/12/19 (1,250 mg) tablet meclizine 25 mg tablet 25 mg PO TID PRN 07/12/19 citalopram 20 mg tablet 40 mg PO DAILY #180 tab 09/28/19 ranolazine 500 mg tablet,extended 500 mg PO BID #60 tab 10/27/19 release,12 hr rosuvastatin 40 mg tablet 40 mg PO DAILY #90 tab 01/01/20 carvedilol 6.25 mg tablet 6.25 mg PO BID #180 tab 03/11/20 insulin regular human 100 unit/mL 10 unit SUBCUT TID ml 03/29/20 injection solution insulin syringe-needle U-100 0.5 See Rx Instructions .ROUTE 04/11/20 mL 31 gauge x 5/16 .MEDSUPPLY #100 ea isosorbide mononitrate 60 mg 60 mg PO BID #180 tab 04/22/20 tablet,extended release 24 hr trazodone 100 mg tablet 200 mg PO QHS #180 tab 04/25/20 clopidogrel 75 mg tablet 75 mg PO DAILY #90 tab 04/26/20 Buspirone HCl 5 mg PO BID 05/09/20 Surgical History: Surgical History (Last Updated 05/09/20 @ 01:[address] Lora Rincon MD) History of coronary artery stent placement (Chronic) Onset Date: 10/10/18 Z95.5 PCI-LIZETTE-Mid LAD w/ 2.5 x 28 mm and 2.5 x 12 mm Synergy Stent 10/10/18 H/O breast surgery Z98.890 x3 History of hysterectomy Z90.710 Hx of cholecystectomy Z90.49 Surgical History: cholecystectomy, hysterectomy - CRIS/BSO for endometriosis and bleeding, - - ear surgery and eye surgery Psychiatric History: Depression Lives: Spouse/ Significant Other Smoking Status: Never smoker Alcohol: None Drugs: None - *Family History Maternal Family History: Family History (Last Reviewed 05/09/20 @ 01:[address] Lora Rincon MD) Sister Heart disease Breast cancer Asthma Depression Mother Diabetes Heart disease Breast cancer Arthritis Father Diabetes Heart disease Arthritis Unknown No problems noted. Brother Arthritis Paternal Family History: Family History (Last Reviewed 05/09/20 @ 01:[address] Lora Rincon MD) Sister Heart disease Breast cancer Asthma Depression Mother Diabetes Heart disease Breast cancer Arthritis Father Diabetes Heart disease Arthritis Unknown No problems noted. Brother Arthritis Sibling Family History: Family History (Last Reviewed 05/09/20 @ 01:[address] Lora Rincon MD) Sister Heart disease Breast cancer Asthma Depression Mother Diabetes Heart disease Breast cancer Arthritis Father Diabetes Heart disease Arthritis Unknown No problems noted. Brother Arthritis Review of Systems Constitutional: Denies: Anorexia, Chills, Fever, Weakness Eyes: Denies: Blurred vision, Double vision, Drainage, Redness HEENT: Reports: Head Aches. Denies: Difficulty Hearing, Ear Pain, Eye Pain, Nasal bleeding, Nasal Congestion Cardiovascular: Reports: Chest Pain. Denies: Chest Pressure, Chest Tightness, Edema, Heaviness, Light Headedness, Palpitations, Paroxysmal Noc. Dyspnea, Syncope Respiratory: Denies: Cough, Hemoptysis, Pleuritic Pain, Shortness of Breath, Sputum production, Wheezing Gastrointestinal: Denies: Abdominal Pain, Constipation, Diarrhea, Nausea, Vomiting Genitourinary: Denies: Dysuria, Frequency, Hematuria Musculoskeletal: Denies: Arm Pain, Back Pain, Foot Pain Skin: Denies: Dryness, Rash Neurological: Reports: Confusion, Headaches. Denies: Balance problems, Double vision, Change in Speech, Slurred speech, Incoordination, Numbness, Tingling Psychiatric: Reports: Anxiety, Depression Endocrine: Denies: Change in Body Habitus, Polydipsia, Polyuria VTE Information - Inpt Only VTE Present on Admission: No VTE Mechan Device Prophylaxis: None VTE Pharm Prophylaxis ordered?: Yes Patient Problems: Active and Suspected Problems (Last Reviewed 03/29/20 @ 14:49 by Estephania Cleveland) Delirium (Acute) Syncope (Suspected) Chest pain (Acute) - Physical Exam Vitals/I&O's: Vital Signs Temp Pulse Resp BP Pulse Ox 98.2 F 86 18 167/111 H 98 05/09/20 01:46 05/09/20 01:46 05/09/20 01:46 05/09/20 01:46 05/09/20 01:46 Oxygen Delivery Method Room Air Weight: 169 lb 8.568 oz Body Mass Index (BMI) 33.0 Finger Stick Blood Glucose 362 Intake and Output for Last 24 Hours 05/07/20 05/08/20 05/09/20 23:59 23:59 23:59 Intake Total 140 / 140 Balance 140 / 140 General: Alert, Cooperative, No apparent distress, Confused HEENT: Atraumatic, PERRLA, EOMI, Normocephalic Oral: Moist Mucosa, No Gingival or Mucosal Lesions/ Ulcerations Neck: Supple, No JVD, Negative Carotid Bruits, Trachea Midline, Thyroid Normal Size and Texture Lungs: Clear to auscultation, Normal air movement, No rhonchi, No wheeze, No rales Cardiovascular: Regular rate, Regular Rhythm, Normal S1, Normal S2, PMI Normal Abdomen: Bowel Sounds Present, Soft, Non Tender, Non-Distended, No Hepato- splenomegaly Extremities: No clubbing, No cyanosis, No edema Skin: No rashes, No breakdown Lymphatic: No Cervical, Supraclavicular, or Inguinal Adenopathy Neurological: Cranial nerves II-XII grossly intact, Motor Exam 5/5 strength throughout Psych/Mental Status: Flat Affect, Irrational Behavior Laboratory Results 05/08/20 23:30: WBC 7.1, RBC 4.77, Hgb 13.8, Hct 42.4, MCV 88.9, MCH 28.9, MCHC 32.5, RDW Std Deviation 39.0, RDW Coeff of Sanjay 12.0, Plt Count 229, MPV 10.8, Immature Gran % (Auto) 0.700, Neut % (Auto) 52.5, Lymph % (Auto) 32.6, [place] % (Auto) 8.1, Eos % (Auto) 5.4 H, Baso % (Auto) 0.7, Absolute Neuts (auto) 3.7, Absolute Lymphs (auto) 2.31, Nucleated RBC % 0 05/08/20 23:30: D-Dimer Quant (PE/DVT) 0.29 05/08/20 23:30: Sodium 142, Potassium 3.7, Chloride 106, Carbon Dioxide 30.0, Anion Gap 6, BUN 22 H, Creatinine 1.61 H, Estim Creat Clear Calc 26.36, Est GFR (MDRD) Af Amer 42 L, Est GFR (MDRD) Non-Af 35 L, BUN/Creatinine Ratio 13.7, Glucose 126 H, Calcium 8.8, Troponin I < 0.015 05/09/20 00:30: Urine Color Yellow, Urine Clarity Clear, Urine pH 8.0, Ur Specific [place] 1.010, Urine Protein 15 H, Urine Glucose (UA) Normal, Urine Ketones Negative, Urine Occult Blood Negative, Urine Nitrite Negative, Urine Bilirubin Negative, Urine Urobilinogen Normal, Ur Leukocyte Esterase 25 H, Urine RBC 0 SEEN, Urine WBC 0-5 SEEN, Ur Squamous Epith Cells 0 SEEN, Urine Bacteria 2+, Urine Mucus 0 SEEN Clinical Impression(s) from Imaging Studies Chest X-Ray 05/08/20 23:39 IMPRESSION: No acute cardiopulmonary disease. No significant interval change. Electronically Signed: Radha Darling MD at 23:54 EDT , Service support , Brain CT 05/09/20 00:13 IMPRESSION: There is no acute intracranial pathology. There is no significant interval change. Electronically Signed: Radha Darling MD at 0:46 EDT , Service support , Current Medications Citalopram Hydrobromide (Celexa) 20 mg PO DAILY ARMANDO Last Admin: 05/09/20 00:45 Dose: 20 mg Documented by: Sodium Chloride () 1,000 mls @ 150 mls/hr IV .Q6H40M [facility] Last Infusion: 05/09/20 00:45 Dose: 0 mls/hr Documented by: Assessment/Plan All Active Problems (Last Reviewed 03/29/20 @ 14:49 by Estephania Cleveland) Delirium (Acute) Chest pain (Acute) This is a 60 years old female patient presented to the emergency room because of confusion, complaint of chest pain, has reported questionable seizure-like activity, found to have acute kidney injury and she is being admitted for evaluation and treatment. #1 confusion/encephalopathy: Unclear etiology. CT scan brain showed no acute findings. Routine blood work was remarkable for mild acute kidney injury, otherwise normal. Chest x-ray and urinalysis were unremarkable. Blood pressure was elevated, other vital signs were stable. Patient's reported shakiness of the upper part of her body, clenching of her teeth as well as drooling which could be due to seizure. The patient herself mentioned that her sister had a seizure and she takes medication for it. Plan: Admit to PCU for observation, cardiac monitoring, seizure precautions, EEG, Ativan IV x1 as needed for seizure, gentle IV fluids for hydration, urine drug screen, LFT, serum ammonia, repeat CBC and BMP tomorrow morning. #2 reported syncope: Unclear etiology, could be due to the possible seizure. Patient has been mentioned that when patient passed out, her blood pressure was elevated and her blood glucose were in the 140s. CT scan brain showed no acute findings. She had bilateral carotid Doppler on May 03, 2020 that revealed less than 50% stenosis of the left and right external carotids. Plan: Monitor blood pressure, continue home medications, other plan as above. At this time, no indication for further testing. #3 return chest pain: This has been recurrent since she had STEMI back on 2019 status post stents. She had cardiac catheterization on March, and revealed angiographically normal left main, patent previously placed proximal LAD stent, mid circumflex with 50% stenosis, proximal diffuse obtuse marginal is 50 to 75% stenosis, proximal RCA has 25% stenosis, ejection fraction was 60%. Patient had stress test on September, that was normal. EKG today looks normal, no acute segment changes. Troponin is negative. Plan: Cardiac monitoring, serial cardiac enzymes, continue nitrate twice daily as was instructed by recent cardiology follow-up visit, continue aspirin, Plavix, Coreg and nitrates. At this time, I do not think patient will need any further testing cardiac kurtz. #4 mild acute kidney injury: Secondary to dehydration, baseline kidney function is normal. Plan for IV fluids, input output chart, repeat BMP tomorrow morning. #5 type 2 diabetes mellitus: ADA diet, Accu-Cheks, insulin sliding scale, continue insulin NPH. #6 hypertension: Blood pressure was elevated in the ED, continue Coreg, isosorbide mononitrate, IV allergy PRN. #7 CAD status post stents: Plan as above, continue aspirin, Plavix, beta- blockers, statins, nitrates. #8 anxiety and depression: Continue BuSpirone and citalopram. #9 DVT prophylaxis: Subcu heparin. This note was generated with [employer] dictation software. It may contain incorrect words, spelling, and punctuation that were not noted in checking the note before signing. OBSV E&M: [id number] Initial observation care L3
[2020-05-09] MEDS: 0.9% Normal Saline 1,000 ML 100 ML IV ×2 (02:26→12:35)
[2020-05-09 04:04] LABS: AST(SGOT) 18 U/L (15-37); Alanine Aminotransfer ALT/SGPT 24 U/L (13-56); Albumin, Serum 3.3 g/dL (3.2-5.0); Alkaline Phosphatase 56 U/L (45-117); Bilirubin, Direct 0.11 mg/dL (0.00-0.30); Globulin 3.2 g/dL (2.2-4.2); Protein, Total 6.5 g/dL (6.4-8.2)
[2020-05-09 04:04] LABS: Amphetamine Urine VISTA NEGATIVE (<1000 ng/mL); Barbiturate Urine VISTA NEGATIVE (< 200 ng/mL); Benzodiazepine Urine VISTA NEGATIVE (< 200 ng/mL); Cocaine Urine VISTA NEGATIVE (< 300 ng/mL); Ecstacy Urine VISTA POSITIVE (< 500 ng/mL); Methadone Urine VISTA NEGATIVE (< 300 ng/mL); PCP Urine VISTA NEGATIVE (< 25 ng/mL); THC Urine VISTA NEGATIVE (< 50 ng/mL); Vista UDS pH Range 8
[2020-05-09] MEDS: Heparin Injection (Vial) 5,000 UNIT/ML VIAL 5000 UNIT SC ×3 (06:37→21:42)
[2020-05-09] MEDS: Insulin Lispro 100 UNIT/ML INSULN.PEN SC ×4 (06:45→21:41)
[2020-05-09 06:46] LABS: Bedside Glucose 199 mg/dL (70-110)
--- NOTE | 2020-05-09 08:54 | TELEMED_ITS ---
[facility] has confirmed receipt of a request for visit. This document confirms receipt of the order initiating the consult. To find the results of the consultation, please view the patient's reports for the scanned Telemed Consult.
[2020-05-09] MEDS: Acetaminophen 325 MG Tablet 650 MG PO (09:03)
[2020-05-09] MEDS: Ceftriaxone 1 GM/50 ML BAG IV (10:04)
--- NOTE | 2020-05-09 10:31 | NURSING ---
Called [facility] and updated patient's home med list based off what [facility] has on file for patient.
[2020-05-09 11:36] LABS: Bedside Glucose 247 mg/dL (70-110)
--- NOTE | 2020-05-09 12:18 | PCM.PROGNOTE ---
<DuyFelicita TRAFFIC ADMINISTRATOR - Last Filed: 05/09/20 12:39> Patient Problems: Active and Suspected Problems (Last Updated 05/09/20 @ 01:[address] Lora Rincon MD) Delirium (Acute) Syncope (Suspected) Chest pain (Acute) Subjective: Patient seen and examined. Very confused. Unable to state her name, where she is at. States she needs to go home and feed the chickens. - Physical Exam Vitals/I&O's: Vital Signs Temp Pulse Resp BP Pulse Ox 97.5 F L 82 18 170/98 H 97 05/09/20 09:00 05/09/20 09:00 05/09/20 09:00 05/09/20 09:00 05/09/20 09:15 Oxygen Delivery Method Room Air Weight: 167 lb 5.294 oz Body Mass Index (BMI) 32.6 Finger Stick Blood Glucose 362 Intake and Output for Last 24 Hours 05/07/20 05/08/20 05/09/20 23:59 23:59 23:59 Intake Total 2014 Balance 2014 General: Alert, Cooperative, No apparent distress, Confused HEENT: Atraumatic, PERRLA, EOMI, Normocephalic Neck: Supple, No JVD, Negative Carotid Bruits Lungs: Clear to auscultation, Normal air movement Cardiovascular: Regular rate, No murmurs Abdomen: Bowel Sounds Present, Soft, Non Tender, Non-Distended Extremities: No clubbing, No cyanosis, No edema, Capillary Refill Less than 3 Seconds Skin: No rashes, No breakdown Musculoskeletal: No Tenderness to Palpation of Joints or Extremities Neurological: Cranial nerves II-XII grossly intact, Neuro grossly intact Psych/Mental Status: Normal Affect, Impulsive Laboratory Results 05/08/20 23:30: WBC 7.1, RBC 4.77, Hgb 13.8, Hct 42.4, MCV 88.9, MCH 28.9, MCHC 32.5, RDW Std Deviation 39.0, RDW Coeff of Sanjay 12.0, Plt Count 229, MPV 10.8, Immature Gran % (Auto) 0.700, Neut % (Auto) 52.5, Lymph % (Auto) 32.6, [place] % (Auto) 8.1, Eos % (Auto) 5.4 H, Baso % (Auto) 0.7, Absolute Neuts (auto) 3.7, Absolute Lymphs (auto) 2.31, Nucleated RBC % 0 05/08/20 23:30: D-Dimer Quant (PE/DVT) 0.29 05/08/20 23:30: Sodium 142, Potassium 3.7, Chloride 106, Carbon Dioxide 30.0, Anion Gap 6, BUN 22 H, Creatinine 1.61 H, Estim Creat Clear Calc 26.36, Est GFR (MDRD) Af Amer 42 L, Est GFR (MDRD) Non-Af 35 L, BUN/Creatinine Ratio 13.7, Glucose 126 H, Calcium 8.8, Troponin I < 0.015 05/09/20 00:30: Urine Color Yellow, Urine Clarity Clear, Urine pH 8.0, Ur Specific [place] 1.010, Urine Protein 15 H, Urine Glucose (UA) Normal, Urine Ketones Negative, Urine Occult Blood Negative, Urine Nitrite Negative, Urine Bilirubin Negative, Urine Urobilinogen Normal, Ur Leukocyte Esterase 25 H, Urine RBC 0 SEEN, Urine WBC 0-5 SEEN, Ur Squamous Epith Cells 0 SEEN, Urine Bacteria 2+, Urine Mucus 0 SEEN 05/09/20 00:30: Urine Opiates Screen NEGATIVE, Urine Methadone Screen NEGATIVE, Ur Barbiturates Screen NEGATIVE, Ur Phencyclidine Scrn NEGATIVE, Ur Amphetamines Screen NEGATIVE, U Methamphetamin-MDMA POSITIVE H, U Benzodiazepines Scrn NEGATIVE, Urine Cocaine Screen NEGATIVE, U Cannabinoids Screen NEGATIVE, Ur Drug Screen Comment 05/09/20 02:52: Total Bilirubin 0.20, Direct Bilirubin 0.11, AST 18, ALT 24, Alkaline Phosphatase 56, Troponin I < 0.015, Total Protein 6.5, Albumin 3.3, Globulin 3.2 05/09/20 02:52: Ammonia 27.0 05/09/20 05:30: Troponin I < 0.015 05/09/20 06:41: POC Glucose 199 H 05/09/20 11:28: POC Glucose 247 H Current Medications Acetaminophen (Tylenol) 650 mg PO Q6H PRN PRN PRN Reason: Pain Score 1-10/Temp > 100.7 F Last Admin: 05/09/20 09:03 Dose: 650 mg Documented by: Heparin Sodium (Porcine) (Heparin Na) 5,000 unit SC Q8 [facility]O Last Admin: 05/09/20 06:37 Dose: 5,000 unit Documented by: Hydralazine HCl (Apresoline Iv) 10 mg IV Q6H PRN PRN PRN Reason: for SBP>160 Sodium Chloride () 1,000 mls @ 100 mls/hr IV .Q10H [facility] Stop: 05/09/20 22:20 Last Infusion: 05/09/20 10:35 Dose: 100 mls/hr Documented by: Ceftriaxone Sodium (Rocephin) 1 gm in 50 mls @ 100 mls/hr IV Q24 [facility] Last Infusion: 05/09/20 10:35 Dose: Infused Documented by: Insulin Human Lispro (Humalog Kwikpen (Bkc)) 0 unit SC ACHS [facility]; Protocol Last Admin: 05/09/20 11:29 Dose: 2 u Documented by: Ondansetron HCl (Zofran) 4 mg IV Q8H PRN PRN PRN Reason: NAUSEA/VOMITING Senna/Docusate Sodium (Senokot-S, Clau-Colace) 2 tablet PO BID PRN PRN PRN Reason: Constipation Sodium Chloride () 10 - 40 ml IV UD PRN PRN Reason: SALINE FLUSH Medical Necessity - Tobacco Use Smoking Status: Never smoker Assessment/Plan All Active Problems (Last Updated 05/09/20 @ 01:[address] Lora Rincon MD) Delirium (Acute) Chest pain (Acute) 1. Acute encephalopathy-unclear etiology. Possibly due to underlying UTI. Brain CT unremarkable. EEG unremarkable. If no improvement with treatment of UTI, consider MRI/neuro consult. 2. Probable acute UTI-urinalysis with 2+ bacteria, 25 leukocyte. Urine culture pending. IV Rocephin pending culture. 3. Acute kidney injury- IV fluids, trend BMP. 4. Reported syncope-troponin negative. Echo September 2018 demonstrated an EF of 45 to 50%, stage I diastolic dysfunction. Will order repeat echo. 5. CAD with history of stents-continue aspirin, statin, Plavix, carvedilol, Ranexa. 6. Type 2 diabetes [id number] with sliding scale insulin. Continue home NPH regimen. 7. Hypertension, uncontrolled-resume home carvedilol, isosorbide. PRN hydralazine for systolic blood pressure greater than 160. 8. Anxiety/depression-continue buspirone, citalopram. 9. History of ductal carcinoma status post left lumpectomy, partial mastectomy and radiation therapy- following with Dr. Ricardo. On Arimidex. DVT prophylaxis-heparin subcu This patient was seen by WILTON Barrett under the supervision of Dr. Steve. <Umbertoanne marieNatalie - Last Filed: 05/09/20 14:16> - Physical Exam Vitals/I&O's: Vital Signs Temp Pulse Resp BP Pulse Ox 97.8 F 76 16 155/75 H 98 05/09/20 12:33 05/09/20 12:33 05/09/20 12:33 05/09/20 12:33 05/09/20 12:33 Oxygen Delivery Method Room Air Weight: 167 lb 5.294 oz Body Mass Index (BMI) 32.6 Finger Stick Blood Glucose 362 Intake and Output for Last 24 Hours 05/07/20 05/08/20 05/09/20 23:59 23:59 23:59 Intake Total 2215 / 2215 Output Total 650 / 650 Balance 1565 / 1565 Laboratory Results 05/08/20 23:30: WBC 7.1, RBC 4.77, Hgb 13.8, Hct 42.4, MCV 88.9, MCH 28.9, MCHC 32.5, RDW Std Deviation 39.0, RDW Coeff of Sanjay 12.0, Plt Count 229, MPV 10.8, Immature Gran % (Auto) 0.700, Neut % (Auto) 52.5, Lymph % (Auto) 32.6, [place] % (Auto) 8.1, Eos % (Auto) 5.4 H, Baso % (Auto) 0.7, Absolute Neuts (auto) 3.7, Absolute Lymphs (auto) 2.31, Nucleated RBC % 0 05/08/20 23:30: D-Dimer Quant (PE/DVT) 0.29 05/08/20 23:30: Sodium 142, Potassium 3.7, Chloride 106, Carbon Dioxide 30.0, Anion Gap 6, BUN 22 H, Creatinine 1.61 H, Estim Creat Clear Calc 26.36, Est GFR (MDRD) Af Amer 42 L, Est GFR (MDRD) Non-Af 35 L, BUN/Creatinine Ratio 13.7, Glucose 126 H, Calcium 8.8, Troponin I < 0.015 05/09/20 00:30: Urine Color Yellow, Urine Clarity Clear, Urine pH 8.0, Ur Specific [place] 1.010, Urine Protein 15 H, Urine Glucose (UA) Normal, Urine Ketones Negative, Urine Occult Blood Negative, Urine Nitrite Negative, Urine Bilirubin Negative, Urine Urobilinogen Normal, Ur Leukocyte Esterase 25 H, Urine RBC 0 SEEN, Urine WBC 0-5 SEEN, Ur Squamous Epith Cells 0 SEEN, Urine Bacteria 2+, Urine Mucus 0 SEEN 05/09/20 00:30: Urine Opiates Screen NEGATIVE, Urine Methadone Screen NEGATIVE, Ur Barbiturates Screen NEGATIVE, Ur Phencyclidine Scrn NEGATIVE, Ur Amphetamines Screen NEGATIVE, U Methamphetamin-MDMA POSITIVE H, U Benzodiazepines Scrn NEGATIVE, Urine Cocaine Screen NEGATIVE, U Cannabinoids Screen NEGATIVE, Ur Drug Screen Comment 05/09/20 02:52: Total Bilirubin 0.20, Direct Bilirubin 0.11, AST 18, ALT 24, Alkaline Phosphatase 56, Troponin I < 0.015, Total Protein 6.5, Albumin 3.3, Globulin 3.2 05/09/20 02:52: Ammonia 27.0 05/09/20 05:30: Troponin I < 0.015 05/09/20 05:30: TSH 1.63 05/09/20 06:41: POC Glucose 199 H 05/09/20 11:28: POC Glucose 247 H Current Medications Acetaminophen (Tylenol) 650 mg PO Q6H PRN PRN PRN Reason: Pain Score 1-10/Temp > 100.7 F Last Admin: 05/09/20 09:03 Dose: 650 mg Documented by: Anastrozole (Arimidex) 1 mg PO DAILY [facility] Aspirin (Ecotrin) 81 mg PO DAILY@0800 [facility] Atorvastatin Calcium (Lipitor) 80 mg PO QHS [facility] Buspirone HCl (Buspar) 10 mg PO BID [facility] Carvedilol (Coreg) 6.25 mg PO BID [facility] Citalopram Hydrobromide (Celexa) 20 mg PO DAILY [facility] Clopidogrel Bisulfate (Plavix) 75 mg PO DAILY [facility] Heparin Sodium (Porcine) (Heparin Na) 5,000 unit SC Q8 [facility] Last Admin: 05/09/20 13:59 Dose: 5,000 unit Documented by: Hydralazine HCl (Apresoline Iv) 10 mg IV Q6H PRN PRN PRN Reason: for SBP>160 Sodium Chloride () 1,000 mls @ 100 mls/hr IV .Q10H [facility] Stop: 05/09/20 22:20 Last Admin: 05/09/20 12:35 Dose: 100 mls/hr Documented by: Ceftriaxone Sodium (Rocephin) 1 gm in 50 mls @ 100 mls/hr IV Q24 [facility] Last Infusion: 05/09/20 10:35 Dose: Infused Documented by: Insulin Human Lispro (Humalog Kwikpen ([facility])) 0 unit SC ACHS [facility]; Protocol Last Admin: 05/09/20 11:29 Dose: 2 u Documented by: Insulin Human NPH (Humulin N ([facility])) 15 units SC BIDCM [facility] Isosorbide Mononitrate (Imdur) 60 mg PO DAILY [facility] Last Admin: 05/09/20 13:56 Dose: 60 mg Documented by: Ondansetron HCl (Zofran) 4 mg IV Q8H PRN PRN PRN Reason: NAUSEA/VOMITING Polyethylene Glycol (Miralax) 17 gm PO DAILY PRN PRN PRN Reason: Constipation Ranolazine (Ranexa) 500 mg PO BID [facility] Senna/Docusate Sodium (Senokot-S, Clau-Colace) 2 tablet PO BID PRN PRN PRN Reason: Constipation Sodium Chloride () 10 - 40 ml IV UD PRN PRN Reason: SALINE FLUSH Assessment/Plan Patient seen by Felicita Gordillo NP-C under my supervision Patient seen and examined. She was admitted for acute encephalopathy as well as suspicion for chest pain and syncope. Patient is very confused today. She thought she was in [facility] and kept on saying she wanted to go up and feed her chickens. She is alert and oriented only to self. Blood pressure is elevated this morning but she has remained hemodynamically stable otherwise. O/E: Vital Signs Temp Pulse Resp BP Pulse Ox 97.8 F 76 16 155/75 H 98 05/09/20 12:33 05/09/20 12:33 05/09/20 12:33 05/09/20 12:33 05/09/20 12:33 General: Alert, Cooperative, very confused HEENT: Atraumatic, PERRLA, EOMI, Normocephalic Neck: Supple, No JVD, Negative Carotid Bruits Lungs: Clear to auscultation, Normal air movement Cardiovascular: Regular rate, No murmurs Abdomen: Bowel Sounds Present, Soft, Non Tender, Non-Distended Extremities: No clubbing, No cyanosis, No edema, Capillary Refill Less than 3 Seconds Skin: No rashes, No breakdown Musculoskeletal: No Tenderness to Palpation of Joints or Extremities Neurological: Cranial nerves II-XII grossly intact, Neuro grossly intact Psych/Mental Status: confused Patient's UA showed evidence of UTI so patient is being treated for UTI. Will start on ceftriaxone. Cause of encephalopathy is not clear but may be due to UTI. EEG done and was unremarkable and CT of the brain was also unremarkable. If she does not improve with treatment of UTI, will consider neurology consult and further brain imaging. Continue hydrating gently with fluids for [place]. Fall precautions. Rest as per WILTON Barrett's notes which I have reviewed and endorsed. OBSV E&M: [id number] Subsequent observation care L2
[2020-05-09] MEDS: Carvedilol 6.25 MG Tablet PO ×2 (12:35→21:49)
--- NOTE | 2020-05-09 12:37 | ECHOD_ITS ---
Reason For Study: SYNCOPE Procedure This was a 2D Doppler, Color Flow transthoracic echocardiogram. Exam performed portable in patient room. Left Ventricle Normal LV size. The estimated ejection fraction is 65 %. Normal diastology for age. No regional wall motion abnormalities noted. Right Ventricle Normal RV size. Normal systolic function. Atria Normal left atrium. Normal right atrium. No doppler evidence for ASD. Mitral Valve There is no mitral valve stenosis. No mitral valve insufficiency. Tricuspid Valve There is no tricuspid stenosis. Unable to estimate RV systolic pressure due to insufficient tricuspid regurgitant envelope. Trivial tricuspid valve insufficiency. Aortic Valve Trisinus/trileaflet aortic valve. There is no aortic stenosis. No aortic valve insufficiency. Pulmonic Valve There is no pulmonic valvular stenosis. No pulmonic valve insufficiency. Great Vessels Normal aortic root. Pericardium/Pleural No pericardial effusion. MMode/2D Measurements & Calculations LVIDd: 4.1 cm IVSd: 0.95 cm Ao root diam: 3.4 cm LVIDs: 2.5 cm LVPWd: 0.87 cm RVDd: 4.1 cm FS: 38.6 % LAV(MOD-bp): 41.9 ml LA A4 area: 17.1 cm2 LA dimension(2D): 3.5 cm LAV(MOD-bp) Indexed: 24.2 ml/m2 LAV(MOD-sp2): 32.8 ml LAV(MOD-sp4): 46.5 ml RA A4 area: 13.8 cm2 Time Measurements MV dec time: 0.17 sec Doppler Measurements & Calculations MV E max lyle: 82.4 cm/sec Lat Peak E' Lyle: 8.6 cm/sec Med Peak E' Lyle: 7.0 cm/sec MV A max lyle: 76.3 cm/sec E/E' lat: 9.6 E/E' med: 11.8 MV E/A: 1.1 Ao V2 max: 125.7 cm/sec LV V1 max: 95.1 cm/sec PA V2 max: 89.4 cm/sec Ao max P.3 mmHg LV V1 max P.6 mmHg TR max lyle: 342.8 cm/sec TR max P.0 mmHg Interpretation Summary The estimated ejection fraction is 65 %. Normal diastology for age. Ordering Physician: Felicita Gordillo Referring Physician: Jose Bal Performed By: Patricia Zimmerman RDCS, RVT
[2020-05-09 13:19] LABS: Thyroid Stim Hormone (TSH) 1.63 uIU/mL (0.358-3.74)
[2020-05-09] MEDS: Isosorbide Mononitrate 60 MG Tablet PO (13:56)
[2020-05-09] MEDS: Insulin NPH Human 100 UNITS/ML PEN 15 UNITS SC (16:29)
[2020-05-09 16:31] LABS: Bedside Glucose 204 mg/dL (70-110)
[2020-05-09] MEDS: Ranolazine 500 MG Tablet PO (21:49)
[2020-05-09] MEDS: busPIRone 5 MG Tablet 10 MG PO (21:50)
[2020-05-09] MEDS: ALPRAZolam 0.5 MG Tablet PO (21:50)
[2020-05-09] MEDS: Atorvastatin Calcium 80 MG Tablet PO (21:51)
[2020-05-09 22:21] LABS: Bedside Glucose 166 mg/dL (70-110)
[2020-05-10] VITALS (9 sets, daily range): BP systolic 128–141; BP diastolic 75–87; PULSE 61–85; RESP 14–16; TEMP 36.7–36.8; O2SAT 95–98
[2020-05-10] MEDS: Heparin Injection (Vial) 5,000 UNIT/ML VIAL 5000 UNIT SC (06:21)
[2020-05-10 07:52] LABS: Anion Gap 5 (5-15); BUN 13 mg/dL (7-18); BUN/Creat Ratio 19.7 RATIO (10-20); Calcium,Total 8.4 mg/dL (8.5-10.1); Chloride 109 mmol/L (98-107); Creatinine, Serum 0.66 mg/dL (0.55-1.02); EST Glomerular Filtration Rate 97 mL/min (>60); Est Glom Filt Rate - Afr Amer 117 mL/min (>60); Glucose 98 mg/dL (74-106); Potassium 3.6 mmol/L (3.5-5.1); Sodium Level 140 mmol/L (136-145)
[2020-05-10] MEDS: Insulin NPH Human 100 UNITS/ML PEN 15 UNITS SC (08:09)
[2020-05-10 08:21] LABS: Bedside Glucose 118 mg/dL (70-110)
[2020-05-10] MEDS: Ranolazine 500 MG Tablet PO (10:01)
[2020-05-10] MEDS: busPIRone 5 MG Tablet 10 MG PO (10:01)
[2020-05-10] MEDS: Carvedilol 6.25 MG Tablet PO (10:02)
[2020-05-10] MEDS: Isosorbide Mononitrate 60 MG Tablet PO (10:02)
[2020-05-10] MEDS: Clopidogrel Bisulfate 75 MG Tablet PO (10:02)
[2020-05-10] MEDS: Citalopram 20 MG Tablet PO (10:02)
[2020-05-10] MEDS: Aspirin E.C. 81 MG Tablet PO (10:02)
[2020-05-10] MEDS: ALPRAZolam 0.5 MG Tablet PO (10:05)
[2020-05-10] MEDS: 0.9% Saline Lock 10 ML Syringe IV ×2 (10:08→16:16)
[2020-05-10] MEDS: Ceftriaxone 1 GM/50 ML BAG IV (10:08)
--- NOTE | 2020-05-10 10:28 | NURSING ---
Patient anxious and tearful regarding upcoming Crisis evaluation. She states she could hide in the closet or go hide in the shower. This RN reassured patient stating that, the drag out worker just wants to help evaluate your mental health and it's important to be honest and open with them so that we can get an accurate and helpful plan of care for you. This RN asked patient specifically about thoughts of SI/HI and patient denies. Medication given for anxiety at this time. Will cont to monitor.
[2020-05-10 11:51] LABS: Bedside Glucose 184 mg/dL (70-110)
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
[2020-05-10] MEDS: Insulin Lispro 100 UNIT/ML INSULN.PEN SC (12:53)
--- NOTE | 2020-05-10 13:17 | NURSING ---
ZACHARY CM Note: PERRY form reviewed with the patient and her Tello Reich in regards to treatment of Encephalopathy, reported syncope, and acute kidney injury. Notified patient and that outpatient billing is determined by the insurance policy and status during hospital stay is reviewed for change in condition that may warrant Inpatient stay. Patient and her stated understanding and denied any questions or concerns with PERRY form at this time. Patient signed form as her did not want to sign, original placed in hard chart and patient provided a copy. Joy Theodore RNCM
--- NOTE | 2020-05-10 13:24 | NURSING ---
RN CM Assessment Introduced role of RN CM to patient and her Tello Reich at bedside. Patient is alert, oriented x2 and able to participate in RN CM Assessment. Care providers, pharmacy, and demographics verified. Patient oriented to herself and was able to answer assessment questions appropriately, however did not to be confused on her birthday. states that they are still but has not lived with patient for approximately 36years. Address on file is to [place]. Patient current address with her Dtsophie Morales: [id number] [place] [address], [facility] [id number] Admit Dx: Encephalopathy, reported syncope, LISSETTE Barriers/Issues: See above, patient is pleasantly confused. PCP: Jose Bal Specialists: Onc- Dr Ortiz, Endo-Dr Tse, Cardio- Dr Olsen Preferred Pharmacy: [facility] Insurance: [facility] Rx Benefit: Yes LNOK: Tello Reich LW/HPOA: Patient reports that she has advanced directives completed and thought they were on file with [facility], aware this underwriter mortgage loan did not see them on file and if brought in the future, a copy can be placed on file. Living Arrangements: Lives with Carlita Morales in a [facility], 3 steps to enter home ADL?s: Independent with ambulation and ADLs except dose require assistance with medication management d/t messing her medication up. Transportation: [place] or Carlita Morales DME: Nebulizer, Glucometer HHC: In past but cannot recall agency SNF: None DC PLAN: Patient was evaluated by Psychiatry and plan is for Psych placement. JJ Grewal
--- NOTE | 2020-05-10 15:59 | PCM.DC.SUM ---
<Felicita Gordillo HOME PERFORMANCE CONSULTANT - Last Filed: 05/10/20 16:07> Discharge Date and Diagnosis Date of Admission: 05/09/20 Date of Discharge: 05/10/20 - Primary Discharge Diagnosis Acute Problems: Active Problems (Last Updated 05/09/20 @ 01:[address] Lora Rincon MD) 1. Acute psychosis 2. Acute UTI 3. Acute kidney injury 4. Reported syncope 5. CAD with history of stents 6. Type 2 diabetes mellitus 7. Hypertension, uncontrolled 8. Anxiety/depression 9. History of ductal carcinoma status post left lumpectomy, partial mastectomy and radiation therapy Suspected Problems: Suspected Problems (Last Updated 05/09/20 @ 01:[address] Lora Rincon MD) Syncope (Suspected) - Secondary Discharge Diagnosis Chronic Problems: Chronic Problems (Last Updated 05/09/20 @ 01:[address] Lora Rincon MD) Carcinoma in situ, breast, ductal (Chronic) Diabetes mellitus type 2 in obese (Chronic) Asthma (Chronic) Type 2 diabetes mellitus (Chronic) Osteopenia (Chronic) Polyneuropathy due to type 2 diabetes mellitus (Chronic) Anxiety and depression (Chronic) Noncompliance with diabetes treatment (Chronic) Ischemic cardiomyopathy (Chronic) Atherosclerosis of coronary artery of crow heart without angina pectoris (Chronic) PCI-LIZETTE-Mid LAD w/ 2.5 x 28 mm and 2.5 x 12 mm Synergy Stent 10/10/18 History of coronary artery stent placement (Chronic 10/10/18) PCI-LIZETTE-Mid LAD w/ 2.5 x 28 mm and 2.5 x 12 mm Synergy Stent 10/10/18 Essential (primary) hypertension (Chronic) Hyperlipidemia (Chronic) STEMI (ST elevation myocardial infarction) (Chronic 10/10/18) Hospital Course and Treatment Imaging Results: Diagnostic Data Chest X-Ray 05/08/20 23:39 IMPRESSION: No acute cardiopulmonary disease. No significant interval change. Electronically Signed: Radha Darling MD at 23:54 EDT , Service support , Brain CT 05/09/20 00:13 IMPRESSION: There is no acute intracranial pathology. There is no significant interval change. Electronically Signed: Radha Darling MD at 0:46 EDT , Service support , Consultations 05/10/20 10:32 Consult: Mental Health/Crisis Routine Reason for consult?: anxiety. states recently more stressed at home. disorientation. Date Notified:: 05/10/20 Time Notified:: 10:00 Operations: None Procedures: 2-D Echocardiogram Summary of Care Provided: The patient is a 60 year old F admitted 05/09/2020 due to reported syncope, confusion and chest pain. 1. Acute psychosis-medical work-up has been unremarkable. Brain CT unremarkable. EEG unremarkable. Afebrile. No leukocytosis. Neuro assessment grossly intact. Patient reports history of inpatient psychiatric treatment. Unknown underlying mental health diagnosis. She continues to have delusions, thought disorganization and severe anxiety. Crisis consulted for inpatient psychiatric placement for further mental health evaluation and treatment. Discharged to inpatient psychiatric facility. 2. Acute UTI-urinalysis with 2+ bacteria, 25 leukocyte. Urine culture preliminary growing gram-positive organisms. Continue IV Rocephin pending final culture. Afebrile, no leukocytosis. Do not suspect this is contributing to #1. 3. Acute kidney injury-resolved with IV fluids. 4. Reported syncope-troponin negative. Echo September 2018 demonstrated an EF of 45 to 50%, stage I diastolic dysfunction. Repeat echo report pending. 5. CAD with history of stents-continue aspirin, statin, Plavix, carvedilol, Ranexa. 6. Type 2 diabetes [id number] with sliding scale insulin. Continue home NPH regimen. 7. Hypertension-stable, continue home carvedilol, isosorbide. 8. Anxiety/depression-continue buspirone, citalopram. Mental health evaluation as noted above. 9. History of ductal carcinoma status post left lumpectomy, partial mastectomy and radiation therapy- following with Dr. Ricardo. On Arimidex. General: Alert, Cooperative, No apparent distress, Confused HEENT: Atraumatic, PERRLA, EOMI, Normocephalic Neck: Supple, No JVD, Negative Carotid Bruits Lungs: Clear to auscultation, Normal air movement Cardiovascular: Regular rate, No murmurs Abdomen: Bowel Sounds Present, Soft, Non Tender Extremities: No clubbing, No cyanosis, No edema, Capillary Refill Less than 3 Seconds Skin: No rashes, No breakdown Musculoskeletal: No Tenderness to Palpation of Joints or Extremities Neurological: Cranial nerves II-XII grossly intact, Neuro grossly intact Psych/Mental Status: Anxious, Impulsive Patient seen and examined prior to discharge. Physical assessment as noted above. Patient is stable for discharge with follow up recommendations as noted above. This patient was seen by WILTON Barrett under the supervision of Dr. Steve. - Physical Exam Vitals/I&O's: Vital Signs Temp Pulse Resp BP Pulse Ox 98.0 F 69 14 135/75 H 96 05/10/20 15:19 05/10/20 15:19 05/10/20 15:19 05/10/20 15:19 05/10/20 15:19 Oxygen Delivery Method Room Air Weight: 167 lb 5.294 oz Body Mass Index (BMI) 32.6 Finger Stick Blood Glucose 362 Intake and Output for Last 24 Hours 05/08/20 05/09/20 05/10/20 23:59 23:59 23:59 Intake Total 3540 / 3840 830 / 830 Output Total 2100 / 3200 1700 / 1700 Balance 1440 / 640 -870 / -870 Microbiology Past 72 Hours 05/09/20 00:30 Urine, Clean Catch Urine Culture - Final Mixed Gram Positive Organisms Laboratory Results 05/09/20 16:25: POC Glucose 204 H 05/09/20 21:40: POC Glucose 166 H 05/10/20 07:12: Sodium 140, Potassium 3.6, Chloride 109 H, Carbon Dioxide 26.0, Anion Gap 5, BUN 13, Creatinine 0.66, Estim Creat Clear Calc 64.30, Est GFR (MDRD) Af Amer 117, Est GFR (MDRD) Non-Af 97, BUN/Creatinine Ratio 19.7, Glucose 98, Calcium 8.4 L 05/10/20 08:02: POC Glucose 118 H 05/10/20 11:37: POC Glucose 184 H Current Medications Acetaminophen (Tylenol) 650 mg PO Q6H PRN PRN PRN Reason: Pain Score 1-10/Temp > 100.7 F Last Admin: 05/09/20 09:03 Dose: 650 mg Documented by: Alprazolam (Xanax) 0.5 mg PO BID PRN PRN PRN Reason: ANXIETY Last Admin: 05/10/20 10:05 Dose: 0.5 mg Documented by: Anastrozole (Arimidex) 1 mg PO DAILY [facility] Aspirin (Ecotrin) 81 mg PO DAILY@0800 [facility] Last Admin: 05/10/20 10:02 Dose: 81 mg Documented by: Atorvastatin Calcium (Lipitor) 80 mg PO QHS [facility] Last Admin: 05/09/20 21:51 Dose: 80 mg Documented by: Buspirone HCl (Buspar) 10 mg PO BID [facility] Last Admin: 05/10/20 10:01 Dose: 10 mg Documented by: Carvedilol (Coreg) 6.25 mg PO BID [facility] Last Admin: 05/10/20 10:02 Dose: 6.25 mg Documented by: Citalopram Hydrobromide (Celexa) 20 mg PO DAILY [facility] Last Admin: 05/10/20 10:02 Dose: 20 mg Documented by: Clopidogrel Bisulfate (Plavix) 75 mg PO DAILY [facility] Last Admin: 05/10/20 10:02 Dose: 75 mg Documented by: Heparin Sodium (Porcine) (Heparin Na) 5,000 unit SC Q8 [facility] Last Admin: 05/10/20 15:30 Dose: Not Given Documented by: Hydralazine HCl (Apresoline Iv) 10 mg IV Q6H PRN PRN PRN Reason: for SBP>160 Ceftriaxone Sodium (Rocephin) 1 gm in 50 mls @ 100 mls/hr IV Q24 [facility] Last Infusion: 05/10/20 10:38 Dose: Infused Documented by: Insulin Human Lispro (Humalog Kwikpen (Bkc)) 0 unit SC ACHS [facility]; Protocol Last Admin: 05/10/20 12:53 Dose: 1 u Documented by: Insulin Human NPH (Humulin N (Bkc)) 15 units SC BIDCM [facility] Last Admin: 05/10/20 08:09 Dose: 15 units Documented by: Isosorbide Mononitrate (Imdur) 60 mg PO DAILY [facility] Last Admin: 05/10/20 10:02 Dose: 60 mg Documented by: Lorazepam (Ativan) 1 mg IV X1 ONE Stop: 05/10/20 15:58 Ondansetron HCl (Zofran) 4 mg IV Q8H PRN PRN PRN Reason: NAUSEA/VOMITING Polyethylene Glycol (Miralax) 17 gm PO DAILY PRN PRN PRN Reason: Constipation Ranolazine (Ranexa) 500 mg PO BID ARMANDO Last Admin: 05/10/20 10:01 Dose: 500 mg Documented by: Senna/Docusate Sodium (Senokot-S, Clau-Colace) 2 tablet PO BID PRN PRN PRN Reason: Constipation Sodium Chloride () 10 - 40 ml IV UD PRN PRN Reason: SALINE FLUSH Last Admin: 05/10/20 10:08 Dose: 10 ml Documented by: Home Medications: Medications to take at Discharge Albuterol Inhaler [Ventolin Hfa] 2 puff INHALATION Q6H PRN PRN 11/10/16 Fluticasone/Salmeterol [Advair 250/50 Mcg Diskus] 1 puff INHALATION BID 11/10/16 Insulin NPH Human Isophane [Humulin N] 15 unit SQ BID 11/10/16 Polyethylene Glycol 3350 [Miralax] 17 gm PO DAILY PRN 11/10/16 Aspirin E.C. [Ecotrin] 81 mg PO DAILY@0800 tab 10/12/18 Anastrozole [Arimidex] 1 mg PO DAILY 03/14/19 nitroglycerin 0.4 mg sublingual tablet 0.4 mg SUBLINGUAL Q5-15M PRN #25 tab 03/28/19 calcium carbonate 500 mg calcium (1,250 mg) tablet 500 mg PO BID 07/12/19 meclizine 25 mg tablet 25 mg PO TID PRN 07/12/19 ranolazine 500 mg tablet,extended release,12 hr 500 mg PO BID #60 tab 10/27/19 rosuvastatin 40 mg tablet 40 mg PO DAILY #90 tab 01/01/20 carvedilol 6.25 mg tablet 6.25 mg PO BID #180 tab 03/11/20 insulin regular human 100 unit/mL injection solution 10 unit SUBCUT TID ml 03/29/20 insulin syringe-needle U-100 0.5 mL 31 gauge x 12/15 See Rx Instructions .ROUTE .MEDSUPPLY #100 ea 04/11/20 trazodone 100 mg tablet 200 mg PO QHS #180 tab 04/25/20 clopidogrel 75 mg tablet 75 mg PO DAILY #90 tab 04/26/20 Buspirone HCl 10 mg PO BID 05/09/20 Citalopram [Celexa] 20 mg PO DAILY 05/09/20 Isosorbide Mononitrate [Isosorbide Mononitrate ER] 60 mg PO DAILY 05/09/20 Primary Care Physician: Jose Bal MD [Primary Care Provider] - Disposition: Psych Hospital or Unit Minutes spent on discharge:: 35 Patient Condition:: Stable Medical Necessity - Tobacco Use Smoking Status: Never smoker Meaningful Use Info Meaningful Use Diagnoses (Choose all that apply): None applicable <Natalie Steve - Last Filed: 05/11/20 13:43> Discharge Date and Diagnosis - Secondary Discharge Diagnosis Chronic Problems: Chronic Problems (Last Updated 05/09/20 @ 01:[address] Lora Rincon MD) Carcinoma in situ, breast, ductal (Chronic) Diabetes mellitus type 2 in obese (Chronic) Asthma (Chronic) Type 2 diabetes mellitus (Chronic) Osteopenia (Chronic) Polyneuropathy due to type 2 diabetes mellitus (Chronic) Anxiety and depression (Chronic) Noncompliance with diabetes treatment (Chronic) Ischemic cardiomyopathy (Chronic) Atherosclerosis of coronary artery of crow heart without angina pectoris (Chronic) PCI-LIZETTE-Mid LAD w/ 2.5 x 28 mm and 2.5 x 12 mm Synergy Stent 10/10/18 History of coronary artery stent placement (Chronic 10/10/18) PCI-LIZETTE-Mid LAD w/ 2.5 x 28 mm and 2.5 x 12 mm Synergy Stent 10/10/18 Essential (primary) hypertension (Chronic) Hyperlipidemia (Chronic) STEMI (ST elevation myocardial infarction) (Chronic 10/10/18) Hospital Course and Treatment Consultations 05/10/20 10:32 Consult: Mental Health/Crisis Routine Reason for consult?: anxiety. states recently more stressed at home. disorientation. Date Notified:: 05/10/20 Time Notified:: 10:00 Summary of Care Provided: Patient seen by Felicita NÚÑEZ under my supervision The patient is a 60 year old F who was admitted with a complaint of syncope and chest pain was also found to be very confused and encephalopathic. Labs done showed evidence of UTI with 2+ bacteria. Troponins were negative. EKG showed no acute ST changes. She was admitted and managed for acute metabolic encephalopathy due to UTI tu and chest pain. Chest pain did not recur and was even questionable as this was reported by her but patient never complained of chest pain. Despite treatment with you for UTI, patient remained very confused and kept saying she wanted to go home to feed her chickens and so she was in [facility] to good and also thought it was 1980. Per further discussion with and patient, it turned out that patient did have a history of mental health problems and not suffered from psychosis in the past which was similar to this and required admission to mental health facilities. Patient was therefore evaluated by mental health crisis and deemed to need inpatient psychiatric care. 2D echo done prior to discharge showed EF of 65% with normal diastole and no regional wall motion abnormalities seen. Patient remained hemodynamically stable and was discharged to an inpatient psychiatric facility on 05/10/2020. Patient was seen and examined prior to discharge. She still remains very confused acute notes that her birthdate of the year that we were in. Review systems otherwise negative . O/E: Vital Signs Temp Pulse Resp BP Pulse Ox 98.0 F 69 14 135/75 H 96 05/10/20 15:19 05/10/20 15:19 05/10/20 15:19 05/10/20 15:19 05/10/20 15:19 [] General: Alert, Cooperative, No apparent distress, Confused HEENT: Atraumatic, PERRLA, EOMI, Normocephalic Neck: Supple, No JVD, Negative Carotid Bruits Lungs: Clear to auscultation, Normal air movement Cardiovascular: Regular rate, No murmurs Abdomen: Bowel Sounds Present, Soft, Non Tender Extremities: No clubbing, No cyanosis, No edema, Capillary Refill Less than 3 Seconds Skin: No rashes, No breakdown Musculoskeletal: No Tenderness to Palpation of Joints or Extremities Neurological: Cranial nerves II-XII grossly intact, Neuro grossly intact Psych/Mental Status: Anxious, Impulsive, very confused Plan is for discharge to inpatient psych facility today Rest as per WILTON Barrett's notes which I have reviewed and endorsed. - Physical Exam Vitals/I&O's: Vital Signs Temp Pulse Resp BP Pulse Ox 98.0 F 69 14 135/75 H 96 05/10/20 15:19 05/10/20 15:19 05/10/20 15:19 05/10/20 15:19 05/10/20 15:19 Oxygen Delivery Method Room Air Weight: 167 lb 5.294 oz Body Mass Index (BMI) 32.6 Finger Stick Blood Glucose 362 Intake and Output for Last 24 Hours 05/09/20 05/10/20 05/11/20 23:59 23:59 23:59 Intake Total 3540 / 3840 830 / 830 Output Total 2100 / 3200 1700 / 1700 Balance 1440 / 640 -870 / -870 Microbiology Past 72 Hours 05/09/20 00:30 Urine, Clean Catch Urine Culture - Final Mixed Gram Positive Organisms Inpatient E&M: [id number] Disch Hosp
[2020-05-10] MEDS: LORazepam 2 MG/ML Syringe 1 MG IV (16:16)
== END 2020-05-10 16:40 ==
LOC: ED 05-09 01:09 → PCU 05-09 03:09
PROVIDERS: Nurse Practitioner Family; Admitting Provider Hospitalist; Emergency Provider Emergency Medicine; PCP Internal Medicine; Referring Provider Hospitalist; Visit Provider Student in an Organized Health Care Education/Training Program
DX: R07.89 Other chest pain (principal); R55 Syncope and collapse; F23 Brief psychotic disorder; G93.40 Encephalopathy, unspecified; E11.42 Type 2 diabetes mellitus with diabetic polyneuropathy; N39.0 Urinary tract infection, site not specified; I25.10 Atherosclerotic heart disease of native coronary artery without angina pectoris; F41.9 Anxiety disorder, unspecified; F32.9 Major depressive disorder, single episode, unspecified; N17.9 Acute kidney failure, unspecified; J45.909 Unspecified asthma, uncomplicated; E66.9 Obesity, unspecified; I25.2 Old myocardial infarction; E78.5 Hyperlipidemia, unspecified; I25.5 Ischemic cardiomyopathy; I12.9 Hypertensive chronic kidney disease with stage 1 through stage 4 chronic kidney disease, or unspecified chronic kidney disease; N18.30 Chronic kidney disease, stage 3 unspecified; E11.22 Type 2 diabetes mellitus with diabetic chronic kidney disease; M06.9 Rheumatoid arthritis, unspecified; M19.90 Unspecified osteoarthritis, unspecified site; Z95.5 Presence of coronary angioplasty implant and graft; Z91.19 Patient's noncompliance with other medical treatment and regimen; Z79.4 Long term (current) use of insulin; Z79.02 Long term (current) use of antithrombotics/antiplatelets; Z79.899 Other long term (current) drug therapy; Z79.51 Long term (current) use of inhaled steroids; Z85.3 Personal history of malignant neoplasm of breast; Z92.3 Personal history of irradiation
CPT/HCPCS: 36415; 70450; 71045; 80048; 80076; 80307; 81001; 82140; 82962; 84443; 84484; 85025; 85379; 87086; 87088; 93005; 93306; 95819; 96361; 96365; 96366; 96372; 96374; 96375; 99218; 99285; J7030; Q9957; A4216; G0378

== ENCOUNTER → 2020-07-04 | Outpatient (CLI) | payer MEDICARE, SELFPAY ==
[2018-10-10 13:17] VITALS: BMI 35.9
[2020-07-03 17:41] VITALS: BMI 32.9
== END | disposition home or self-care (01) ==
LOC: LABSPEC 13:46
PROVIDERS: PCP Internal Medicine; Referring Provider Nurse Practitioner Family; Visit Provider Nurse Practitioner Family
DX: U07.1 COVID-19 (principal)
CPT/HCPCS: 87635; U0003

== ENCOUNTER 2020-07-14 02:24 | Emergency (ER) | payer MEDICARE, SELFPAY ==
[2018-10-10 13:17] VITALS: BMI 35.9
[2020-07-14 02:25] VITALS: BP 160/89; PULSE 82; RESP 23; TEMP 35.8; O2SAT 97; BMI 36.4
[2020-07-14 02:27] VITALS: BP 160/89; PULSE 81; RESP 22; TEMP 35.8; O2SAT 97
--- NOTE | 2020-07-14 02:38 | ED.DCSUM_ITS ---
- ER Visit Summary Date of Service: 07/14/20 Chief Complaint: Elevated blood sugars History of Present Illness: The patient is a 60 F history of insulin-dependent diabetes, asthma, hypertension, renal insufficiency and prior breast cancer. Known CAD with 2 cardiac stents on Plavix. Patient's been tested and is Covid positive within the last week. She states her blood sugars have been elevated. Her primary care physician's office as had her decrease her regular insulin. She denies any nausea, vomiting or diarrhea. Physical Examination: Older female no acute distress. Vital signs stable afebrile. Pulse ox 97% on room air no signs of hypoxia. H EENT exam unremarkable. Moist mucous membranes. Neck nontender no lymphadenopathy. Lungs clear to auscultation bilaterally. Heart regular rhythm rate about 80 no murmur. Abdomen soft and nontender normal bowel sounds no peritoneal signs. Patient moving all 4 extremities. Calves nontender without edema. Back nontender. Skin unremarkable. Neurologically she is awake and alert with no focal motor deficits. Test Results: CBC is normal with a white count of 4 and hemoglobin of 14. Chemistries show sodium 132. Gap is 6. Creatinine of 1.1. Blood sugar is elevated at 565. Serum ketones are negative. Patient is not in DKA. GTT 1 hour after the subcu insulin was 395. And another BG T was obtained at 5:54 AM and is currently 259. Patient is doing well will be discharged to home. Emergency Department Course and Treatment: Older female Covid positive from a prior test with elevated blood sugars. Screening labs to be obtained. Patient be treated with a liter of normal saline. Repeat exam patient is doing well at 3:14 AM. She will be given 16 units of subcu insulin. And blood sugar rechecked in 1 hour. Basically will observe her in the emergency department slowly bring her blood sugar down and she should be able to be discharged to home. Treatment Plan: Watch blood sugars frequently. Return if feeling worse. Return to her prior insulin dosages as long as her sugars are running 100 or greater. Disposition: Discharge Impression: Acute hyperglycemia History of insulin-dependent diabetes Recently tested positive for COVID-19 History of CAD with cardiac stents on Plavix History of prior breast CA This note was generated with [employer] software. It may contain incorrect words, spelling, and punctuation that were not noted in review of the chart prior to signing ED Disposition - Plan for ED Patient: Disposition: Home or Assisted Living Instructions: ED Diabetic Hyperglycemia Referrals: Jose Bal MD [Primary Care Provider] - 3-5 Days Additional Instructions: Plenty of fluids and rest. Check your blood sugars at least twice a day if not with each meal and at bedtime. Go back to using your normal daily insulin dosages as long as your blood sugar is not running below 100. Follow-up with your doctor in the next few days. Return to emergency department if feeling a lot worse.
[2020-07-14] MEDS: 0.9% Normal Saline 1,000 ML 1000 ML IV (02:41)
--- NOTE | 2020-07-14 02:41 | ED.DEP ---
ED Disposition - Plan for ED Patient: Disposition: Home or Assisted Living Instructions: ED Diabetic Hyperglycemia Referrals: Jose Bal MD [Primary Care Provider] - 3-5 Days Additional Instructions: Plenty of fluids and rest. Check your blood sugars at least twice a day if not with each meal and at bedtime. Go back to using your normal daily insulin dosages as long as your blood sugar is not running below 100. Follow-up with your doctor in the next few days. Return to emergency department if feeling a lot worse.
[2020-07-14 02:43] LABS: Absolute Lymphocyte Count 1.54 X10^3/uL (0.83-4.51); Absolute Neutrophil Count 2.7 X10^3/uL (2.0-7.7); Basophil# 0.04 X10^3/uL; Basophil% 0.8 % (0-1); Eosinophil# 0.11 X10^3/uL; Eosinophils% 2.2 % (0-5); Hematocrit 41.9 % (37-47); Hemoglobin 14.5 g/dL (12.0-15.0); Lymphocyte # 1.54 X10^3/ul (4.0); Lymphocyte % 31.2 % (19-41); Mean Corp Hgb Conc 34.6 g/dL (32-36); Mean Corpuscular Hgb 28.8 pg (27.0-32.0); Mean Corpuscular Volume 83.1 fL (81-99); Monocyte# 0.53 X10^3/uL; Monocyte% 10.8 % (0-10); NRBC Flagged by Analyzer 0 % (0-5); Neutrophil % 54.8 % (47-70); Platelet Count 235 K/mm3 (150-450); RBC Distribution Width CV 11.7 % (11.6-14.6); RBC Distribution Width SD 35.1 fl (35.1-43.9); Red Blood Count 5.04 M/mm3 (4.2-5.4); White Blood Count 4.9 K/mm3 (4.4-11.0)
[2020-07-14 02:51] LABS: Bedside Glucose > 500 mg/dL (70-110)
[2020-07-14 03:03] LABS: Anion Gap 6 (5-15); BUN 17 mg/dL (7-18); BUN/Creat Ratio 14.4 RATIO (10-20); Calcium,Total 9.1 mg/dL (8.5-10.1); Chloride 98 mmol/L (98-107); Creatinine, Serum 1.18 mg/dL (0.55-1.02); EST Glomerular Filtration Rate 49 mL/min (>60); Est Glom Filt Rate - Afr Amer 60 mL/min (>60); Estimated Creatinine Clearance 58.33 ml/min; Glucose 565 mg/dL (74-106); Potassium 3.7 mmol/L (3.5-5.1); Sodium Level 132 mmol/L (136-145)
[2020-07-14] MEDS: Insulin Lispro 100 UNIT/ML INSULN.PEN 16 UNIT SC (03:23)
[2020-07-14 03:46] VITALS: PULSE 71; RESP 16; O2SAT 98
[2020-07-14 04:51] LABS: Bedside Glucose 395 mg/dL (70-110)
[2020-07-14 05:35] VITALS: BP 141/83; PULSE 77; RESP 18; O2SAT 97
[2020-07-14 05:56] LABS: Bedside Glucose 259 mg/dL (70-110)
[2020-07-14 06:00] VITALS: BP 132/77; PULSE 69; RESP 11; O2SAT 98
== END 2020-07-14 06:15 | disposition home or self-care (01) ==
LOC: ED 02:50
PROVIDERS: Emergency Provider Emergency Medicine; PCP Internal Medicine
DX: E11.65 Type 2 diabetes mellitus with hyperglycemia (principal); U07.1 COVID-19; I25.10 Atherosclerotic heart disease of native coronary artery without angina pectoris; J45.909 Unspecified asthma, uncomplicated; I10 Essential (primary) hypertension; Z95.5 Presence of coronary angioplasty implant and graft; Z79.4 Long term (current) use of insulin; Z79.02 Long term (current) use of antithrombotics/antiplatelets; Z85.3 Personal history of malignant neoplasm of breast; Z79.51 Long term (current) use of inhaled steroids; Z79.899 Other long term (current) drug therapy
CPT/HCPCS: 36415; 80048; 82009; 82962; 85025; 96360; 99285; J7030; A4216

== ENCOUNTER → 2020-09-24 10:48 | Outpatient (CLI) | payer MEDICARE, SELFPAY ==
[2020-08-20 14:32] VITALS: BMI 35.9
[2020-09-24 10:14] VITALS: BMI 36.3
[2020-09-24 13:27] LABS: AST(SGOT) 15 U/L (15-37); Alanine Aminotransfer ALT/SGPT 25 U/L (13-56); Albumin, Serum 3.7 g/dL (3.2-5.0); Alkaline Phosphatase 59 U/L (45-117); Anion Gap 11 (5-15); BUN 22 mg/dL (7-18); BUN/Creat Ratio 19.3 RATIO (10-20); Calcium,Total 9.2 mg/dL (8.5-10.1); Chloride 97 mmol/L (98-107); Creatinine, Serum 1.14 mg/dL (0.55-1.02); EST Glomerular Filtration Rate 51 mL/min (>60); Est Glom Filt Rate - Afr Amer 62 mL/min (>60); Globulin 3.7 g/dL (2.2-4.2); Glucose 661 mg/dL (74-106); Potassium 4.8 mmol/L (3.5-5.1); Protein, Total 7.4 g/dL (6.4-8.2); Sodium Level 129 mmol/L (136-145)
== END ==
PROVIDERS: PCP Internal Medicine; Referring Provider Internal Medicine; Visit Provider Internal Medicine
DX: E11.9 Type 2 diabetes mellitus without complications (principal); F32.9 Major depressive disorder, single episode, unspecified; F41.9 Anxiety disorder, unspecified
CPT/HCPCS: 36415; 80053

== ENCOUNTER → 2020-11-04 09:52 | Outpatient (CLI) | payer MEDICARE, SELFPAY ==
[2018-10-10 13:17] VITALS: BMI 35.9
[2020-06-12 12:52] VITALS: BMI 31.5
[2020-08-20 14:32] VITALS: BMI 35.9
[2020-09-24 10:14] VITALS: BMI 36.3
--- NOTE | 2020-11-04 09:54 | BI_ITS ---
MAMMOGRAPHY - BILATERAL SCREENING 3-D TOMOSYNTHESIS associated with architectural distortion and trabecular thickening consistent with partial mastectomy. The right breast is unremarkable. BI/SCRN MAMM (CAD)W/BRIGETTE BILAT IMPRESSION: Architectural distortion, left breast. ASSESSMENT CATEGORY: BIRADS Category 0: Incomplete. FOLLOW UP RECOMMENDATION: Recommend comparison with prior mammograms. If these are not available, focal compression of the left breast in the CC and MLO orientation is recommended. Approximately 10% of breast cancers are not detected by mammography. A normal mammogram should not delay biopsy of a clinically suspicious abnormality. Electronically Signed: Joshua Denney MD at 14:04 EDT Tel , Service support ,
== END ==
PROVIDERS: PCP Internal Medicine; Referring Provider Internal Medicine Hematology & Oncology; Visit Provider Internal Medicine Hematology & Oncology
DX: Z12.31 Encounter for screening mammogram for malignant neoplasm of breast (principal)
CPT/HCPCS: 77063; 77067

== ENCOUNTER 2020-12-04 18:44 | Emergency (ER) | payer MEDICARE, SELFPAY ==
[2020-08-20 14:32] VITALS: BMI 35.9
[2020-11-25 13:48] VITALS: BMI 32.8
[2020-12-04 18:44] VITALS: BP 172/95; PULSE 75; RESP 18; TEMP 36.8; O2SAT 96; BMI 37.7
--- NOTE | 2020-12-04 18:59 | EKG12_ITS ---
Test Reason : CP Blood Pressure : / mmHG Vent. Rate : 070 BPM Atrial Rate : 070 BPM P-R Int : 160 ms QRS Dur : 084 ms QT Int : 394 ms P-R-T Axes : 052 040 044 degrees QTc Int : 425 ms Normal sinus rhythm Normal ECG Confirmed by MALLORIE MYERS, KATINA ([id number]), commissioning editor ALEJANDRINA BRYAN ([id number]) on 12/09/2020 12:25:02 PM Referred By: BB Confirmed By:KATINA NOBLES MD
[2020-12-04 19:19] LABS: Absolute Lymphocyte Count 2.19 X10^3/uL (0.83-4.51); Absolute Neutrophil Count 4.9 X10^3/uL (2.0-7.7); Basophil# 0.05 X10^3/uL; Basophil% 0.6 % (0-1); Eosinophil# 0.41 X10^3/uL; Eosinophils% 5.1 % (0-5); Hematocrit 42.6 % (37-47); Lymphocyte # 2.19 X10^3/ul (0.83-4.51); Mean Corp Hgb Conc 32.9 g/dL (32-36); Mean Corpuscular Hgb 28.3 pg (27.0-32.0); Mean Corpuscular Volume 86.2 fL (81-99); Mean Platelet Vol. 10.9 fl (6.2-12.0); Monocyte# 0.56 X10^3/uL; Monocyte% 6.9 % (0-10); NRBC Flagged by Analyzer 0 % (0-5); Neutrophil # 4.88 X10^3/uL (2.7-7.7); Neutrophil % 60.2 % (47-70); Platelet Count 276 K/mm3 (150-450); RBC Distribution Width CV 12.6 % (11.6-14.6); RBC Distribution Width SD 39.4 fl (35.1-43.9); Red Blood Count 4.94 M/mm3 (4.2-5.4); White Blood Count 8.1 K/mm3 (4.4-11.0)
--- NOTE | 2020-12-04 19:20 | RAD_ITS ---
INDICATION: chest pain EXAMINATION/TECHNIQUE: X-RAY - XR Chest 1 View COMPARISON: None. FINDINGS: The lungs are clear. The cardiomediastinal silhouette is unremarkable. No pleural effusion or pneumothorax. No acute osseous abnormalities. RAD/Chest 1 View (Portable) IMPRESSION: No acute radiographic abnormalities. Electronically Signed: Thaddeus Lyles MD at 19:57 EDT Tel , Service support ,
[2020-12-04 19:44] VITALS: BP 153/92; PULSE 74; RESP 16; O2SAT 98
[2020-12-04 19:47] LABS: Anion Gap 4 (5-15); BUN 21 mg/dL (7-18); BUN/Creat Ratio 24.3 RATIO (10-20); Calcium,Total 9.4 mg/dL (8.5-10.1); Chloride 101 mmol/L (98-107); Creatinine, Serum 0.86 mg/dL (0.55-1.02); EST Glomerular Filtration Rate 71 mL/min (>60); Est Glom Filt Rate - Afr Amer 86 mL/min (>60); Estimated Creatinine Clearance 85.67 ml/min; Glucose 270 mg/dL (74-106); Potassium 4.6 mmol/L (3.5-5.1); Sodium Level 134 mmol/L (136-145)
--- NOTE | 2020-12-04 20:29 | ED.RN ---
MORPHINE NOT GIVEN, UNABLE TO DOCUMENT AGAINST MED. PT STATES SHE HAS AN ADVERSE REACTION OF LOSING HER MIND AFTER TAKING MORPHINE.
[2020-12-04 21:00] VITALS: BP 154/78; PULSE 71; RESP 16; O2SAT 98
--- NOTE | 2020-12-04 22:16 | ED.VIS.CHEST ---
HPI History of Present Illness Chief Complaint: Chest Pain Informant: patient Onset/Context/Timing Onset: Today and Hours (2) Activity at onset: sudden Timing: Continuous Quality: Positive for Sharp Location: Left Parasternal and Left Chest Worsened By: Nothing Relieved By: NTG Associated Symptoms: Positive for Nausea, Vomiting, Dyspnea, Cough and Acid Reflux; Negative for Diaphoresis, Fever, Lightheadedness and Palpitations Narrative Narrative: Patient presents with chest pain that began approximately 2 hours prior to arrival. Patient states the pain began rather suddenly. Patient states the pain is over the left upper chest and radiates into her left scapular area and left trapezius area. Patient states she took some nitroglycerin at home which did help with her pain. Patient describes the pain as sharp. Patient admits to some nausea and vomiting. Patient also admits to a cough and shortness of breath. Patient denies any fevers or chills. Patient denies any diaphoresis or lightheadedness. Patient denies any palpitations. CVD Risk Factors: Positive for Hypertension and Hypercholesterolemia PE Risk Factors: Positive for Cancer; Negative for Recent Travel/Surgery, Recent Immobilization and Prior DVT or PE PFSH [facility] Medical History Abnormal mammogram Asthma Atherosclerosis of coronary artery of [place] heart without angina pectoris Breast cancer Chronic headache Chronic kidney disease, stage 3 COPD (chronic obstructive pulmonary disease) Depression Essential (primary) hypertension History of left heart catheterization (LHC) (~03/15/19) Hyperlipidemia Ischemic cardiomyopathy Learning disabilities Memory loss Obesity Osteoarthritis Rheumatoid arthritis Seasonal allergies STEMI (ST elevation myocardial infarction) (10/10/18) Type 2 diabetes mellitus Home Medications albuterol sulfate 2 puff INHALATION Q6H PRN PRN 11/10/16 [History Last Taken 09/28/19] polyethylene glycol 3350 17 gm PO DAILY PRN 11/10/16 [History Last Taken Unknown] aspirin 81 mg PO DAILY@0800 tab 10/12/18 [Rx Last Taken 09/28/19] rosuvastatin 40 mg tablet 40 mg PO DAILY #90 tab 01/01/20 [Rx Last Taken Unknown] carvedilol 6.25 mg tablet 6.25 mg PO BID #180 tab 03/11/20 [Rx Last Taken Unknown] insulin syringe-needle U-100 0.5 mL 31 gauge x 12/15 #100 ea 04/11/20 [Rx Last Taken Unknown] clopidogrel 75 mg tablet 75 mg PO DAILY #90 tab 04/26/20 [Rx Last Taken Unknown] buspirone 10 mg PO BID 05/09/20 [History Last Taken Unknown] isosorbide mononitrate 60 mg PO DAILY 05/09/20 [History Last Taken Unknown] donepezil 5 mg tablet 5 mg PO QHS 05/27/20 [History Last Taken Unknown] anastrozole 1 mg tablet 1 mg PO DAILY #90 tab 06/10/20 [Rx Last Taken Unknown] prazosin 1 mg capsule 1 mg PO QHS #90 cap 06/10/20 [Rx Last Taken Unknown] blood sugar diagnostic #100 ea 07/03/20 [Rx Last Taken Unknown] meclizine 25 mg PO TID PRN PRN 07/14/20 [History Last Taken Unknown] calcium carbonate 200 mg calcium (500 mg)-vitamin D3 400 unit tablet 1 tab PO BID tab 08/26/20 [History Last Taken Unknown] albuterol sulfate 1.25 mg/3 mL solution for nebulization 1.25 mg INHALATION Q4H #90 ml 10/22/20 [Rx Last Taken Unknown] fluticasone 250 mcg-salmeterol 50 mcg/dose blistr powdr for inhalation 1 ea INHALATION BID #60 each 10/22/20 [Rx Last Taken Unknown] insulin NPH isoph U-100 human 100 unit/mL subcutaneous suspension 20 unit SC BID 11/11/20 [History Last Taken Unknown] insulin regular human 100 unit/mL injection solution 18 unit SC TID ml 11/11/20 [History Last Taken Unknown] insulin syringe-needle U-100 0.3 mL 31 gauge x 12/15 #100 each 11/11/20 [Rx Last Taken Unknown] nitroglycerin 0.4 mg sublingual tablet 0.4 mg SUBLINGUAL Q5-15M PRN #25 tab 11/25/20 [Rx Last Taken Unknown] ranolazine 500 mg tablet,extended release,12 hr 500 mg PO BID #60 tab 11/25/20 [Rx Last Taken Unknown] citalopram 20 mg PO QHS 12/04/20 [History Last Taken Unknown] duloxetine 30 mg PO BID 12/04/20 [History Last Taken Unknown] Allergy/AdvReac Type Severity Reaction Status Date / Time egg Allergy Severe Anaphylaxis Verified 12/04/20 19:22 fish derived Allergy Severe Unknown Verified 12/04/20 19:22 nitrofurantoin Allergy Severe Anaphylaxis Verified 12/04/20 19:22 macrocrystalline [From Macrodantin] calcium carbonate AdvReac Severe unknown Verified 12/04/20 19:22 [From Florical] codeine AdvReac Severe unknown Verified 12/04/20 19:22 oxycodone HCl [From Percocet] AdvReac Severe unknown Verified 12/04/20 19:22 propoxyphene napsylate AdvReac Severe unknown Verified 12/04/20 19:22 [From Darvocet-N 100] sodium fluoride AdvReac Severe unknown Verified 12/04/20 19:22 [From Florical] Sulfa (Sulfonamide AdvReac Severe Hives Verified 12/04/20 19:22 Antibiotics) tamoxifen AdvReac Severe Hives Verified 12/04/20 19:22 morphine AdvReac Other Verified 12/04/20 19:22 Family History Sister Heart disease Breast cancer Asthma Depression Mother Diabetes Heart disease Breast cancer Arthritis Father Diabetes Heart disease Arthritis Unknown No problems noted. Brother Arthritis Surgical History H/O breast surgery History of coronary artery stent placement (10/10/18) History of hysterectomy Hx of cholecystectomy Social History Smoking Status: Never smoker alcohol intake: never substance use type: does not use caffeine: No what type of physical activity do you participate in: walking, aerobics and weight training ROS ROS ED Constitutional Constitutional ED: Denies fever(s) or subjective Eyes Eyes: Denies blurry vision or change in vision ENT ENT ED: Denies rhinorrhea or sore throat Cardiovascular Cardiovascular: Reports as per HPI and chest pain; Denies palpitations Respiratory/Chest Respiratory/Chest: Reports cough and dyspnea Gastrointestinal Gastrointestinal: Reports nausea and vomiting Genitourinary Genitourinary ED: Denies dysuria or hematuria Musculoskeletal Musculoskeletal: Reports back pain and neck pain Integumentary Denies abscess or rash Neurologic Neurologic: Reports headache(s); Denies paresthesias or weakness Allergic/Immunologic Allergic/Immunologic ED: Denies mouth swelling or urticaria EXAM Physical Exam Const Vital Signs: 12/04/20 18:44 12/04/20 18:49 12/04/20 19:27 Temperature 98.2 F Temperature Source Temporal Pulse Rate 75 Respiratory Rate 18 Respiratory Effort Normal Respiratory Pattern Normal Blood Pressure 172/95 H Blood Pressure Mean 120 Pulse Ox 96 Oxygen Delivery Method Room Air Room Air 12/04/20 19:44 12/04/20 21:00 Temperature Temperature Source Pulse Rate 74 71 Respiratory Rate 16 16 Respiratory Effort Respiratory Pattern Blood Pressure 153/92 H 154/78 H Blood Pressure Mean 112 103 Pulse Ox 98 98 Oxygen Delivery Method Room Air Room Air Positive well nourished, well developed and obese General Appearance ED: well developed Nutritional Appearance: obese HEENT normocephalic and atraumatic Eyes PERRL and EOMs intact bilaterally Neck supple and no JVD Resp normal respiratory effort and clear to auscultation bilaterally Effort and Inspection: Negative for respiratory distress Cardio regular rate, regular rhythm and no murmurs GI normal to inspection, nondistended, normoactive bowel sounds, soft to palpation, non-tender and non-distended Extremity normal to inspection General Extremety ED: Negative for edema or tenderness General Extremity: Negative for edema Neuro oriented x3, CN's II-XII intact bilaterally and no sensory deficits noted Sensorium / Orientation: awake and alert Motor Exam: strength 5/5 throughout Psych mental status grossly normal Heart Score History: Moderately Suspicious ECG: Normal Age: >45 - <65 years Risk Factors: 1 or 2 Risk Factors Troponin: </= Normal Limit Score: 3 MDM MDM MDM Narrative Medical decision making narrative: EKG was obtained. On my interpretation, it showed a normal sinus rhythm with a rate of 70. NM interval, QRS interval, and QTc intervals were all normal. [place] was normal. There are no acute ST or T wave changes. Portable 1 view chest x-ray was obtained. On my interpretation, lung gibbs are clear. There is normal cardiac silhouette. Bony thorax is normal. There is no acute process noted. Radiologist also interpreted the x-ray and agrees. CBC and basic metabolic profile were obtained and were within normal limits with the exception of an elevated glucose of 270. Since the patient's symptoms began only 2 hours prior to arrival, a delta troponin was ordered. This was also within normal limits. Patient was advised of her results. Patient has a HEART score of 3. Patient was advised that this is low risk for acute cardiac event. Patient was instructed to follow-up with her primary care physician and crown and bridge technician in 5 to 7 days. Patient states she is actually scheduled for a stress test in 8 days. Patient was instructed to continue with this appointment. Patient understood and was agreeable with the plan. All questions were answered. Lab Data Attestation: I reviewed the patient's lab results. Labs: Laboratory Results - last 24 hr 12/04/20 12/04/20 12/04/20 18:50 18:50 21:50 WBC 8.1 RBC 4.94 Hgb 14.0 Hct 42.6 MCV 86.2 MCH 28.3 MCHC 32.9 RDW Std Deviation 39.4 RDW Coeff of Sanjay 12.6 Plt Count 276 MPV 10.9 Immature Gran % (Auto) 0.200 Neut % (Auto) 60.2 Lymph % (Auto) 27.0 [place] % (Auto) 6.9 Eos % (Auto) 5.1 H Baso % (Auto) 0.6 Absolute Neuts (auto) 4.9 Absolute Lymphs (auto) 2.19 Nucleated RBC % 0 Sodium 134 L Potassium 4.6 Chloride 101 Carbon Dioxide 29.0 Anion Gap 4 L BUN 21 H Creatinine 0.86 Estim Creat Clear Calc 85.67 Est GFR (MDRD) Af Amer 86 Est GFR (MDRD) Non-Af 71 BUN/Creatinine Ratio 24.3 H Glucose 270 H Calcium 9.4 Troponin I < 0.015 < 0.015 Radiography Chest X-Ray - ED: 1 View, Read by ED Physician, Read by Radiologist and Normal Diagnostic Testing: Radiology Impression Chest X-Ray 12/04/20 19:20 IMPRESSION: No acute radiographic abnormalities. Electronically Signed: Thaddeus Lyles MD at 19:57 EDT Tel , Service support , EKG Initial EKG: Attestation: I personally reviewed and interpreted this EKG as follows: Interpretation: Sinus Rhythm (70) and No Acute Injury Pattern Discharge Plan Triage Chief Complaint: Chest Pain ED Provider: Rush Mckinley Dx/Rx/DC Orders Clinical Impression: Chest pain Instructions: ED Chest Pain, Uncertain Cause Prescriptions: No Action donepezil 5 mg tablet 5 mg PO QHS RF: 0 (DME) OneTouch Verio test strips Strip See Rx Instructions .ROUTE .MEDSUPPLY Qty: 100 RF: 6 ranolazine [Ranexa] 500 mg tablet extended release 12 hr 500 mg PO BID Qty: 60 RF: 11 Hold Instructions: 04/22/2020- dizziness nitroglycerin 0.4 mg tablet, sublingual 0.4 mg SUBLINGUAL Q5-15M PRN (Reason: chest pain) Qty: 25 RF: 5 calcium carbonate 200 mg calcium (500 mg)-vitamin D3 400 unit tablet 200 mg (500 mg) -400 unit tablet 1 tab PO BID RF: 0 insulin NPH isoph U-100 human 100 unit/mL suspension 20 unit SC BID RF: 0 insulin regular human 100 unit/mL solution 18 unit SC TID RF: 0 (DME) insulin syringe-needle U-100 [BD Insulin Syringe Ultra-Fine] 0.3 mL 31 gauge x 5/16 syringe See Rx Instructions .ROUTE .MEDSUPPLY Qty: 100 RF: 8 albuterol sulfate 1.25 mg/3 mL solution for nebulization 1.25 mg INHALATION Q4H Qty: 90 RF: 3 fluticasone propion-salmeterol 250-50 mcg/dose blister with device 1 ea INHALATION BID Qty: 60 RF: 3 polyethylene glycol 3350 17 GM packet 17 gm PO DAILY PRN (Reason: Constipation) RF: 0 albuterol sulfate 1 INHALER inhaler 2 puff INHALATION Q6H PRN PRN (Reason: Bronchodialation) RF: 0 aspirin 81 MG tablet 81 mg PO DAILY@0800 RF: 0 buspirone 10 MG tablet 10 mg PO BID RF: 0 isosorbide mononitrate 60 MG tablet extended release 24 hr 60 mg PO DAILY RF: 0 meclizine 25 MG tablet 25 mg PO TID PRN PRN (Reason: Dizziness) RF: 0 citalopram 20 mg tablet 20 mg PO QHS RF: 0 duloxetine 30 mg capsule,delayed release(DR/EC) 30 mg PO BID RF: 0 rosuvastatin 40 mg tablet 40 mg PO DAILY Qty: 90 RF: 3 carvedilol 6.25 mg tablet 6.25 mg PO BID Qty: 180 RF: 3 (DME) insulin syringe-needle U-100 [BD Insulin Syringe Ultra-Fine] 0.5 mL 31 gauge x 5/16 syringe See Rx Instructions .ROUTE .MEDSUPPLY Qty: 100 RF: 6 clopidogrel [Plavix] 75 mg tablet 75 mg PO DAILY Qty: 90 RF: 4 anastrozole 1 mg tablet 1 mg PO DAILY Qty: 90 RF: 2 prazosin 1 mg capsule 1 mg PO QHS Qty: 90 RF: 1 Primary Care Provider: Jose Bal Referrals: Jose Bal MD [Primary Care Provider] - 5-7 Days Disposition Disposition: Home, self care
[2020-12-04 23:14] VITALS: BP 157/74; PULSE 87; RESP 16; O2SAT 98
== END 2020-12-04 23:15 | disposition home or self-care (01) ==
PROVIDERS: Emergency Provider Emergency Medicine; PCP Internal Medicine
DX: R07.9 Chest pain, unspecified (principal); I25.10 Atherosclerotic heart disease of native coronary artery without angina pectoris; J44.9 Chronic obstructive pulmonary disease, unspecified; I12.9 Hypertensive chronic kidney disease with stage 1 through stage 4 chronic kidney disease, or unspecified chronic kidney disease; E11.22 Type 2 diabetes mellitus with diabetic chronic kidney disease; N18.30 Chronic kidney disease, stage 3 unspecified; E78.5 Hyperlipidemia, unspecified; M19.90 Unspecified osteoarthritis, unspecified site; E66.9 Obesity, unspecified; Z79.4 Long term (current) use of insulin; Z79.899 Other long term (current) drug therapy
CPT/HCPCS: 71045; 80048; 84484; 85025; 93005; 99285; A4216

== ENCOUNTER → 2020-12-20 05:47 | Outpatient (CLI) | payer MEDICARE, SELFPAY ==
[2020-08-20 14:32] VITALS: BMI 35.9
[2020-11-25 13:48] VITALS: BMI 32.8
[2020-12-04 18:44] VITALS: BMI 37.7
--- NOTE | 2020-12-20 17:41 | STRESSREP ---
Stress Test Report Pharmacologic myocardial perfusion stress test. 60-year-old lady with a history of coronary artery disease status post previous angioplasty and stenting of the left anterior descending artery. Stress protocol: Resting EKG demonstrates normal sinus rhythm with a rate of 63 bpm normal intervals are noted resting blood pressure is 132 over 80 mmHg. 0.4 mg of regadenoson was infused per usual protocol followed by rapid intravenous saline flush injection continuous EKG monitoring was performed. At rest there were no ST or T wave changes noted to suggest abnormal flow reserve and at peak infusion nonspecific ST changes were noted with did not meet the criteria for ischemia. No clinical angina was noted. The final blood pressure was 132/82 mmHg. Myocardial perfusion protocol. 10.7 mCi of technetium 99m sestamibi was injected at rest. 0.4 mg of regadenoson was infused per usual protocol. At peak infusion 31.5 mCi of technetium 99m sestamibi was injected stress images were obtained stress and rest images were reconstructed and compared in the short axis vertical long and horizontal long axis. Gated images were also obtained per Perfusion SPECT analysis: Review of the stress images demonstrate normal uptake of tracer noted in all areas of the myocardium the resting images similarly demonstrate normal uptake of tracer noted in all areas of the myocardium. No areas of reversibility are noted to suggest ischemia no previous infarct is noted. Gated SPECT analysis: The gated ejection fraction is over 60%. Conclusion: Normal pharmacologic myocardial perfusion stress test. Preserved ejection fraction.
== END ==
LOC: CVS 05:52
PROVIDERS: PCP Internal Medicine; Referring Provider Nurse Practitioner Family; Visit Provider Nurse Practitioner Family
DX: R07.9 Chest pain, unspecified (principal); I25.10 Atherosclerotic heart disease of native coronary artery without angina pectoris; E78.5 Hyperlipidemia, unspecified; I10 Essential (primary) hypertension; Z95.5 Presence of coronary angioplasty implant and graft
CPT/HCPCS: 78452; 93017; A9500; A4216; J2785

== ENCOUNTER → 2021-03-28 13:37 | Outpatient (CLI) | payer MEDICARE, SELFPAY ==
[2020-08-20 14:32] VITALS: BMI 35.9
[2021-03-17 10:54] VITALS: BMI 37.0
--- NOTE | 2021-03-28 13:39 | CT_ITS ---
STUDY: CT ABDOMEN AND PELVIS WITH CONTRAST REASON FOR EXAM: Female, 60 years old. RLQ Pain RADIATION DOSAGE (If Supplied By Facility): CTDIvol = ( 15.75 ) mGy, DLP = ( 720.06 ) mGycm TECHNIQUE: Transaxial images were obtained from the dome of the diaphragm to the symphysis pubis with oral contrast. Oral and amp; IV Readi-CAT and amp; 100mL Isovue-370 was administered. Sagittal and coronal images were reconstructed. Individualized dose optimization techniques were used for this CT. COMPARISON: None. FINDINGS: The visualized lung bases are unremarkable. The visualized portions of the heart are within normal limits. Normal liver. There are surgical clips in the gallbladder fossa consistent with a prior cholecystectomy. Normal spleen. Normal pancreas. Normal bilateral adrenal glands. Normal right kidney. Normal left kidney. There is a small hiatal hernia. Normal small intestine. A large amount of fecal material is seen throughout the colon. The appendix is visualized and appears normal. Normal abdominal aorta. Normal inferior vena cava. Normal retroperitoneum. Mild degree of diffuse bladder wall thickening. There is absence of the uterus consistent with a prior hysterectomy. Normal abdominal wall. There are mild degenerative changes of the visualized lumbar spine. CT/Abdomen/Pelvis WITH Contrast IMPRESSION: Mild degree of diffuse bladder wall thickening. Small hiatal hernia. Electronically Signed: Jay Guzmán MD at 14:17 EDT , Service support ,
[2021-03-28 13:50] LABS: EGFR FINGERSTICK > 60.0000 mL/min (>60)
== END ==
LOC: CT 13:38
PROVIDERS: PCP Internal Medicine; Referring Provider Internal Medicine; Visit Provider Internal Medicine
DX: R10.31 Right lower quadrant pain (principal)
CPT/HCPCS: 74177; Q9967

== ENCOUNTER → 2021-05-19 14:56 | Outpatient (CLI) | payer MEDICARE, SELFPAY ==
[2020-08-20 14:32] VITALS: BMI 35.9
[2021-05-19 17:01] LABS: ALB/GLOB Ratio 0.9 RATIO (0.9-2.4); AST(SGOT) 15 U/L (15-37); Alanine Aminotransfer ALT/SGPT 25 U/L (13-56); Albumin, Serum 3.6 g/dL (3.2-5.0); Alkaline Phosphatase 64 U/L (45-117); Anion Gap 11 (5-15); BUN 19 mg/dL (7-18); Calcium,Total 9.4 mg/dL (8.5-10.1); Chloride 99 mmol/L (98-107); Cholesterol 186 mg/dL (200); Creatinine, Serum 0.95 mg/dL (0.55-1.02); EST Glomerular Filtration Rate 63 mL/min (>60); Est Glom Filt Rate - Afr Amer 77 mL/min (>60); Glucose 279 mg/dL (74-106); High Density Lipoprotein 74 mg/dL; Potassium 4.1 mmol/L (3.5-5.1); Protein, Total 7.6 g/dL (6.4-8.2); Sodium Level 135 mmol/L (136-145); Triglycerides 130 mg/dL; Very Low Density Lipoprotein 26 mg/dL (5-40)
[2021-05-19 17:11] LABS: Microalbumin,Random Urine 9.2 mg/L (NO RANGE EST.); Microalbumin:Creatinine Ratio 11.1 mg/g CRE (<30 mg/g CRE)
== END ==
LOC: BIMLAB 14:57
PROVIDERS: PCP Internal Medicine; Referring Provider Internal Medicine; Visit Provider Internal Medicine
DX: E11.65 Type 2 diabetes mellitus with hyperglycemia (principal); I10 Essential (primary) hypertension
CPT/HCPCS: 36415; 80053; 80061; 82043; 82570

== ENCOUNTER 2021-08-14 17:17 | Emergency (ER) | payer MEDICARE, SELFPAY ==
[2020-08-20 14:32] VITALS: BMI 35.9
[2021-08-14 17:20] VITALS: BP 132/70; PULSE 74; RESP 23; TEMP 36.5; O2SAT 97; BMI 38.0
--- NOTE | 2021-08-14 18:21 | EKG12_ITS ---
Test Reason : CP Blood Pressure : / mmHG Vent. Rate : 068 BPM Atrial Rate : 068 BPM P-R Int : 152 ms QRS Dur : 084 ms QT Int : 436 ms P-R-T Axes : 049 037 044 degrees QTc Int : 463 ms Normal sinus rhythm Normal ECG Confirmed by HENRIK MYERS, JORGE ([id number]), book editor ALEJANDRINA BRYAN ([id number]) on 08/18/2021 11:29:04 AM Referred By: LIDIA Confirmed By:JORGE CHESTER MD
--- NOTE | 2021-08-14 18:34 | RAD_ITS ---
STUDY: X-RAY CHEST REASON FOR EXAM: Female, 61 years old. Technologist Notes chest pain. pt states it is worse with inspiration. c/o cough, sob and nausea. chest pain TECHNIQUE: XR Chest 1 View COMPARISON: 5.5.21 FINDINGS: There is no demonstrated pleural abnormality. Normal size heart. Normal mediastinum and oj. Normal visualized pulmonary arteries. Normal visualized aortic arch and descending thoracic aorta. There are diffuse degenerative changes of the visualized thoracic spine. There is degenerative osteoarthritis of the bilateral shoulders. There is no demonstrated abnormality of the visualized soft tissue structures of the upper abdomen. RAD/Chest 1 View (Portable) IMPRESSION: There are no acute findings. Electronically Signed: Jamal Jain MD at 18:49 EST , Service support ,
[2021-08-14 18:39] LABS: Absolute Lymphocyte Count 1.95 X10^3/uL (0.83-4.51); Absolute Neutrophil Count 3.8 X10^3/uL (2.0-7.7); Basophil# 0.05 X10^3/uL; Basophil% 0.7 % (0-1); Eosinophil# 0.37 X10^3/uL; Eosinophils% 5.5 % (0-5); Hematocrit 37.2 % (37-47); Hemoglobin 12.5 g/dL (12.0-15.0); Lymphocyte # 1.95 X10^3/ul (0.83-4.51); Mean Corp Hgb Conc 33.6 g/dL (32-36); Mean Corpuscular Hgb 29.8 pg (27.0-32.0); Mean Corpuscular Volume 88.8 fL (81-99); Mean Platelet Vol. 10.7 fl (6.2-12.0); Monocyte# 0.52 X10^3/uL; Monocyte% 7.7 % (0-10); NRBC Flagged by Analyzer 0 % (0-5); Neutrophil # 3.81 X10^3/uL (2.7-7.7); Neutrophil % 56.7 % (47-70); Platelet Count 297 K/mm3 (150-450); RBC Distribution Width CV 12.8 % (11.6-14.6); RBC Distribution Width SD 41.3 fl (35.1-43.9); Red Blood Count 4.19 M/mm3 (4.2-5.4); White Blood Count 6.7 K/mm3 (4.4-11.0)
--- NOTE | 2021-08-14 18:45 | ED.VIS.CHEST ---
HPI History of Present Illness Chief Complaint: Chest Pain Informant: patient and EMS Onset/Context/Timing Onset: Today (around 2 hrs by time of eval) Activity at onset: gradual, onset and rest Timing: Continuous Quality: Positive for - (twinges) Location: Right Parasternal (initially), Left Parasternal (now) and - (denies radiation) Current Severity: Mild Maximum Severity: Moderate Worsened By: Not Worsened By Movement of Arm, Movement of Torso and Breathing Relieved By: Nothing (but took a NTG earlier and now pain not as severe; did not seem to help at the time) Associated Symptoms: Positive for Nausea, Dyspnea and Lightheadedness; Negative for Vomiting, Cough and Palpitations Narrative Narrative: Patient started feeling chest discomfort today and fears it is similar but not as severe as when she had a heart attack and required 2 stents around 3 years ago. She has been on aspirin and Plavix ever since, she took both of those earlier today. She took a nitroglycerin earlier while she was at home but it did not seem to help her chest discomfort immediately. She has headache but states that started before she took the nitro. No other recent illness or injury. Prior Similar Symptoms: Yes and With Prior [facility] Medical History Abnormal mammogram Asthma Atherosclerosis of coronary artery of the [place] heart without angina pectoris Breast cancer Chronic headache Chronic kidney disease, stage 3 Chronic suprapubic pain COPD (chronic obstructive pulmonary disease) Depression Diabetes mellitus type 2 in obese Essential (primary) hypertension Flu vaccine need History of left heart catheterization (LHC) (~03/15/19) Hyperlipidemia Ischemic cardiomyopathy Learning disabilities Memory loss Obesity Osteoarthritis Polyarthropathy Rheumatoid arthritis Right lower quadrant pain Seasonal allergies STEMI (ST elevation myocardial infarction) (10/10/18) Type 2 diabetes mellitus Type 2 diabetes mellitus Urinary incontinence Home Medications albuterol sulfate 2 puff INHALATION Q6H PRN PRN 11/10/16 [History Last Taken 09/28/19] polyethylene glycol 3350 17 gm PO DAILY PRN 11/10/16 [History Last Taken Unknown] aspirin 81 mg PO DAILY@0800 tab 10/12/18 [Rx Last Taken 09/28/19] carvedilol 6.25 mg tablet 6.25 mg PO BID #180 tab 03/11/20 [Rx Last Taken Unknown] insulin syringe-needle U-100 0.5 mL 31 gauge x 5/16 #100 ea 04/11/20 [Rx Last Taken Unknown] clopidogrel 75 mg tablet 75 mg PO DAILY #90 tab 04/26/20 [Rx Last Taken Unknown] donepezil 5 mg tablet 5 mg PO QHS 05/27/20 [History Last Taken Unknown] meclizine 25 mg PO TID PRN PRN 07/14/20 [History Last Taken Unknown] calcium carbonate 200 mg calcium (500 mg)-vitamin D3 400 unit tablet 1 tab PO BID tab 08/26/20 [History Last Taken Unknown] albuterol sulfate 1.25 mg/3 mL solution for nebulization 1.25 mg INHALATION Q4H #90 ml 10/22/20 [Rx Last Taken Unknown] fluticasone 250 mcg-salmeterol 50 mcg/dose blistr powdr for inhalation 1 ea INHALATION BID #60 each 10/22/20 [Rx Last Taken Unknown] insulin regular human 100 unit/mL injection solution 18 unit SC TID ml 11/11/20 [History Last Taken Unknown] insulin syringe-needle U-100 0.3 mL 31 gauge x 5/16 #100 each 11/11/20 [Rx Last Taken Unknown] nitroglycerin 0.4 mg sublingual tablet 0.4 mg SUBLINGUAL Q5-15M PRN #25 tab 11/25/20 [Rx Last Taken Unknown] ranolazine 500 mg tablet,extended release,12 hr 500 mg PO BID #60 tab 11/25/20 [Rx Last Taken Unknown] rosuvastatin 40 mg tablet 40 mg PO DAILY #90 tab 12/06/20 [Rx Last Taken Unknown] alcohol swabs 1 pad TOPICAL 4X/DAY #200 ea 03/27/21 [Rx Last Taken Unknown] buspirone 10 mg tablet 10 mg PO BID #180 tab 04/03/21 [Rx Last Taken Unknown] anastrozole 1 mg tablet 1 mg PO DAILY #90 tab 05/07/21 [Rx Last Taken Unknown] blood sugar diagnostic #100 ea 06/04/21 [Rx Last Taken Unknown] trazodone 100 mg tablet 200 mg PO DAILY #180 tab 07/01/21 [Rx Last Taken Unknown] duloxetine 30 mg capsule,delayed release 30 mg PO BID #180 cap 07/14/21 [Rx Last Taken Unknown] prazosin 1 mg capsule 1 mg PO QHS #90 cap 08/05/21 [Rx Last Taken Unknown] insulin NPH isoph U-100 human 100 unit/mL subcutaneous suspension 18 unit SC BID ml 08/07/21 [History Last Taken Unknown] isosorbide mononitrate 60 mg tablet,extended release 24 hr 60 mg PO DAILY #90 tab 08/08/21 [Rx Last Taken Unknown] oxybutynin chloride 5 mg tablet,extended release 24 hr 5 mg PO DAILY #60 tab 08/08/21 [Rx Last Taken Unknown] Allergy/AdvReac Type Severity Reaction Status Date / Time egg Allergy Severe Anaphylaxis Verified 08/14/21 17:23 fish derived Allergy Severe Unknown Verified 08/14/21 17:23 nitrofurantoin Allergy Severe Anaphylaxis Verified 08/14/21 17:23 macrocrystalline [From Macrodantin] calcium carbonate AdvReac Severe unknown Verified 08/14/21 17:23 [From Florical] codeine AdvReac Severe unknown Verified 08/14/21 17:23 oxycodone HCl [From Percocet] AdvReac Severe unknown Verified 08/14/21 17:23 propoxyphene napsylate AdvReac Severe unknown Verified 08/14/21 17:23 [From Darvocet-N 100] sodium fluoride AdvReac Severe unknown Verified 08/14/21 17:23 [From Florical] Sulfa (Sulfonamide AdvReac Severe Hives Verified 08/14/21 17:23 Antibiotics) tamoxifen AdvReac Severe Hives Verified 08/14/21 17:23 morphine AdvReac Other Verified 08/14/21 17:23 Family History Sister Heart disease Breast cancer Asthma Depression Mother Diabetes Heart disease Breast cancer Arthritis Father Diabetes Heart disease Arthritis Unknown No problems noted. Brother Arthritis Surgical History H/O breast surgery History of coronary artery stent placement (10/10/18) History of hysterectomy Hx of cholecystectomy Social History Smoking Status: Never smoker alcohol intake: never substance use type: does not use caffeine: No what type of physical activity do you participate in: walking, aerobics and weight training ROS ROS ED Constitutional Constitutional ED: Reports malaise; Denies chills or fever(s) Eyes Eyes: Denies change in vision or diplopia ENT ENT ED: Denies rhinorrhea or sore throat Cardiovascular Cardiovascular: Reports chest pain; Denies palpitations or pedal edema Respiratory/Chest Respiratory/Chest: Reports dyspnea; Denies cough Gastrointestinal Gastrointestinal: Denies abdominal pain, diarrhea, nausea or vomiting Genitourinary Genitourinary ED: Denies dysuria or hematuria Musculoskeletal Musculoskeletal: Denies back pain or neck pain Integumentary Denies abscess or rash Neurologic Neurologic: Reports headache(s); Denies paresthesias or weakness Psychiatric Psychiatric: Denies anxiety or suicidal thoughts EXAM Physical Exam Const Vital Signs: 08/14/21 17:20 08/14/21 17:23 08/14/21 18:30 Temperature 97.7 F L Temperature Source Oral Pulse Rate 74 Respiratory Rate 23 H Respiratory Effort Normal Non-Labored Blood Pressure 132/70 H Blood Pressure Mean 90 Pulse Ox 97 Oxygen Delivery Method Room Air Room Air 08/14/21 19:14 08/14/21 21:00 08/14/21 22:25 Temperature Temperature Source Pulse Rate 71 77 66 Respiratory Rate 239 H 24 H 20 H Respiratory Effort Blood Pressure 110/79 126/73 H Blood Pressure Mean 89 90 Pulse Ox 96 97 Oxygen Delivery Method Room Air Positive well nourished and well developed General Appearance ED: well developed and NAD HEENT Reports moist mucous membranes normocephalic and atraumatic Eyes PERRL and EOMs intact bilaterally Neck full ROM and supple Resp normal respiratory effort and clear to auscultation bilaterally Cardio regular rate, regular rhythm and no murmurs GI non-tender and non-distended Auscultation: normoactive bowel sounds Palpation: soft Back/Spine no CVA tenderness General Back: other FROM Extremity normal to inspection, no calf tenderness and no pedal edema General Extremety ED: Negative for edema, pulses abnormal or tenderness General Extremity: Negative for edema or pulses abnormal Neuro oriented x3, CN's II-XII intact bilaterally and no sensory deficits noted Sensorium / Orientation: awake and alert Motor Exam: strength 5/5 throughout Skin no rashes or lesions noted and no wounds Heart Score History: Slightly/Non-Suspicious ECG: Normal Age: >45 - <65 years Risk Factors: >/= 3 Risk Factors or History of CAD Troponin: </= Normal Limit Score: 3 MDM MDM MDM Narrative Medical decision making narrative: Patient was given Tylenol for her headache, and observed. She had no further episodes of chest discomfort, and her cardiac work-up is negative. With a troponin of 4 after 2 straight hours of discomfort, in context of a normal EKG, as well as a negative D-dimer and currently asymptomatic I am comfortable letting her go home and follow-up as an outpatient, we discussed reasons to return including worsening severe discomfort. She is comfortable with the plan. Lab Data Attestation: I reviewed the patient's lab results. Labs: Laboratory Results - last 24 hr 08/14/21 08/14/21 08/14/21 17:30 17:30 17:30 WBC 6.7 RBC 4.19 L Hgb 12.5 Hct 37.2 MCV 88.8 MCH 29.8 MCHC 33.6 RDW Std Deviation 41.3 RDW Coeff of Sanjay 12.8 Plt Count 297 MPV 10.7 Immature Gran % (Auto) 0.400 Neut % (Auto) 56.7 Lymph % (Auto) 29.0 [place] % (Auto) 7.7 Eos % (Auto) 5.5 H Baso % (Auto) 0.7 Absolute Neuts (auto) 3.8 Absolute Lymphs (auto) 1.95 Nucleated RBC % 0 D-Dimer Quant (PE/DVT) Cancelled Sodium 139 Potassium TNP Chloride 105 Carbon Dioxide 28.0 Anion Gap 6 BUN 18 Creatinine 0.74 Estim Creat Clear Calc 99.05 Est GFR (MDRD) Af Amer 102 Est GFR (MDRD) Non-Af 84 BUN/Creatinine Ratio 24.3 H Glucose 85 Calcium 8.6 Troponin I High Sens 4 08/14/21 08/14/21 19:45 22:00 WBC RBC Hgb Hct MCV MCH MCHC RDW Std Deviation RDW Coeff of Sanjay Plt Count MPV Immature Gran % (Auto) Neut % (Auto) Lymph % (Auto) [place] % (Auto) Eos % (Auto) Baso % (Auto) Absolute Neuts (auto) Absolute Lymphs (auto) Nucleated RBC % D-Dimer Quant (PE/DVT) Cancelled <= 0.27 Sodium Potassium Chloride Carbon Dioxide Anion Gap BUN Creatinine Estim Creat Clear Calc Est GFR (MDRD) Af Amer Est GFR (MDRD) Non-Af BUN/Creatinine Ratio Glucose Calcium Troponin I High Sens Radiography Diagnostic Testing: Clinical Impression(s) from Imaging Studies Chest X-Ray 08/14/21 18:34 IMPRESSION: There are no acute findings. Electronically Signed: Jamal Jain MD at 18:49 EST , Service support , EKG Initial EKG: Attestation: I personally reviewed and interpreted this EKG as follows: Interpretation: Sinus Rhythm and No Acute Injury Pattern Comments: Normal axis. Normal EKG. Discharge Plan Triage Chief Complaint: Chest Pain ED Provider: Cordell Barry Dx/Rx/DC Orders Clinical Impression: Chest pain Instructions: ED Chest Pain, Uncertain Cause Prescriptions: No Action donepezil 5 mg tablet 5 mg PO QHS RF: 0 ranolazine [Ranexa] 500 mg tablet extended release 12 hr 500 mg PO BID Qty: 60 RF: 11 Hold Instructions: 04/22/2020- dizziness nitroglycerin 0.4 mg tablet, sublingual 0.4 mg SUBLINGUAL Q5-15M PRN (Reason: chest pain) Qty: 25 RF: 5 calcium carbonate 200 mg calcium (500 mg)-vitamin D3 400 unit tablet 200 mg (500 mg) -400 unit tablet 1 tab PO BID RF: 0 insulin regular human 100 unit/mL solution 18 unit SC TID RF: 0 (DME) insulin syringe-needle U-100 [BD Insulin Syringe Ultra-Fine] 0.3 mL 31 gauge x 5/16 syringe See Rx Instructions .ROUTE .MEDSUPPLY Qty: 100 RF: 8 insulin NPH isoph U-100 human 100 unit/mL suspension 18 unit SC BID RF: 0 albuterol sulfate 1.25 mg/3 mL solution for nebulization 1.25 mg INHALATION Q4H Qty: 90 RF: 3 fluticasone propion-salmeterol 250-50 mcg/dose blister with device 1 ea INHALATION BID Qty: 60 RF: 3 alcohol swabs Pads, Medicated 1 pad topical 4X/DAY Qty: 200 RF: 3 polyethylene glycol 3350 17 GM packet 17 gm PO DAILY PRN (Reason: Constipation) RF: 0 albuterol sulfate 1 INHALER inhaler 2 puff INHALATION Q6H PRN PRN (Reason: Bronchodialation) RF: 0 aspirin 81 MG tablet 81 mg PO DAILY@0800 RF: 0 meclizine 25 MG tablet 25 mg PO TID PRN PRN (Reason: Dizziness) RF: 0 carvedilol 6.25 mg tablet 6.25 mg PO BID Qty: 180 RF: 3 (DME) insulin syringe-needle U-100 [BD Insulin Syringe Ultra-Fine] 0.5 mL 31 gauge x 5/16 syringe See Rx Instructions .ROUTE .MEDSUPPLY Qty: 100 RF: 6 clopidogrel [Plavix] 75 mg tablet 75 mg PO DAILY Qty: 90 RF: 4 rosuvastatin 40 mg tablet 40 mg PO DAILY Qty: 90 RF: 3 buspirone 10 mg tablet 10 mg PO BID Qty: 180 RF: 1 anastrozole 1 mg tablet 1 mg PO DAILY Qty: 90 RF: 2 (DME) Accu-Chek Gwendolyn Plus test strp Strip See Rx Instructions .ROUTE .MEDSUPPLY Qty: 100 RF: 6 trazodone 100 mg tablet 200 mg PO DAILY Qty: 180 RF: 1 duloxetine 30 mg capsule,delayed release(DR/EC) 30 mg PO BID Qty: 180 RF: 1 prazosin 1 mg capsule 1 mg PO QHS Qty: 90 RF: 1 oxybutynin chloride 5 mg tablet extended release 24hr 5 mg PO DAILY Qty: 60 RF: 1 isosorbide mononitrate 60 mg tablet extended release 24 hr 60 mg PO DAILY Qty: 90 RF: 3 Primary Care Provider: Jose Bal Referrals: Jose Bal MD [Primary Care Provider] - 1-2 Days if not improving Disposition Disposition: Home, Self Care
[2021-08-14] MEDS: Acetaminophen 500 MG Tablet 1000 MG PO (18:52)
[2021-08-14 18:54] LABS: Anion Gap 6 (5-15); BUN 18 mg/dL (7-18); BUN/Creat Ratio 24.3 RATIO (10-20); Calcium,Total 8.6 mg/dL (8.5-10.1); Chloride 105 mmol/L (98-107); Creatinine, Serum 0.74 mg/dL (0.55-1.02); EST Glomerular Filtration Rate 84 mL/min (>60); Est Glom Filt Rate - Afr Amer 102 mL/min (>60); Estimated Creatinine Clearance 99.05 ml/min; Glucose 85 mg/dL (74-106); Sodium Level 139 mmol/L (136-145); Troponin-I HS 4 pg/mL (3.0-54.0)
[2021-08-14 19:14] VITALS: BP 110/79; PULSE 71; RESP 239; O2SAT 96
[2021-08-14 21:00] VITALS: PULSE 77; RESP 24
[2021-08-14 22:25] VITALS: BP 126/73; PULSE 66; RESP 20; O2SAT 97
[2021-08-14 22:26] LABS: D-Dimer Quantitative (DVT/PE) <= 0.27 FEU/ug/m (0.27-0.49)
== END 2021-08-14 22:43 | disposition home or self-care (01) ==
PROVIDERS: Emergency Provider Emergency Medicine; PCP Internal Medicine; Visit Provider Emergency Medicine
DX: R07.89 Other chest pain (principal); M06.9 Rheumatoid arthritis, unspecified; J44.9 Chronic obstructive pulmonary disease, unspecified; E11.22 Type 2 diabetes mellitus with diabetic chronic kidney disease; E11.42 Type 2 diabetes mellitus with diabetic polyneuropathy; Z79.4 Long term (current) use of insulin; N18.30 Chronic kidney disease, stage 3 unspecified; E78.5 Hyperlipidemia, unspecified; I25.5 Ischemic cardiomyopathy; I12.9 Hypertensive chronic kidney disease with stage 1 through stage 4 chronic kidney disease, or unspecified chronic kidney disease; I25.10 Atherosclerotic heart disease of native coronary artery without angina pectoris; F32.A Depression, unspecified; Z85.3 Personal history of malignant neoplasm of breast; E66.9 Obesity, unspecified; I25.2 Old myocardial infarction; Z79.82 Long term (current) use of aspirin; Z79.899 Other long term (current) drug therapy; Z79.02 Long term (current) use of antithrombotics/antiplatelets; Z95.5 Presence of coronary angioplasty implant and graft; R51.9 Headache, unspecified; R06.00 Dyspnea, unspecified; Z68.38 Body mass index [BMI] 38.0-38.9, adult
CPT/HCPCS: 71045; 80048; 84484; 85025; 85379; 93005; 99285; A4216

== ENCOUNTER 2021-11-05 11:26 | Outpatient (CLI) | payer MEDICARE, SELFPAY ==
[2020-08-20 14:32] VITALS: BMI 35.9
--- NOTE | 2021-11-05 11:28 | BI_ITS ---
MAMMOGRAPHY - BILATERAL SCREENING REASON FOR EXAM: Female, 61 years old. Routine annual screening examination. PERTINENT HISTORY: Personal history of breast cancer. Sisters with breast cancer. Mother with breast cancer. Grandmother with breast cancer. Aunt with breast cancer. TECHNIQUE: Digital bilateral breast brigette (3D mammographic acquisition) in the CC and MLO projections. 2-D mediolateral oblique (MLO) and craniocaudad (CC) views of both breasts were obtained. CAD: Full Field Digital Mammography with Computer Added Detection was performed. COMPARISON: Comparison is made with prior study 11/04/2020 and 10/31/2019. FINDINGS: Breast Composition: The breasts are heterogeneously dense, which may obscure small masses. There are no dominant masses or suspicious calcifications. The patient is status post lumpectomy in the upper deep portion of the left breast residual postoperative scarring and skin thickening. No other significant abnormalities are identified. There has been no significant change since the prior study. BI/SCRN MAMM (CAD)W/BRIGETTE BILAT IMPRESSION: Stable bilateral screening mammogram. Yearly follow-up mammogram recommended. (A) ASSESSMENT CATEGORY: BIRADS Category 2: Benign. A letter regarding these results will be sent to the patient by the facility within 30 days. Approximately 10% of breast cancers are not detected by mammography. A normal mammogram should not delay biopsy of a clinically suspicious abnormality. [id number] Electronically Signed: Jay Guzmán MD at 13:25 EDT ,
--- NOTE | 2021-11-05 11:31 | BD_ITS ---
STUDY: DUAL ENERGY X-RAY ABSORPTIOMETRY / DXA REASON FOR EXAM: Female, 61 years old. SCREENING TECHNIQUE: Bone Mineral Density (BMD) measurements of lumbar spine and bilateral hips were obtained. COMPARISON: None. FINDINGS: Lumbar Spine (L1-L4): g/cm2 (0.857) / T-score (-1.7) / Z-score (-0.1) Findings are suggestive of osteopenia with a moderate fracture risk. Left Femur Total: g/cm2 (0.940) / T-score (0.0) / Z-score (1.1) Left Femoral Neck: g/cm2 (0.742) / T-score (-1.0) / Z-score (0.4) Right Femur Total: g/cm2 (0.866) / T-score (-0.6) / Z-score (0.5) Right Femoral Neck: g/cm2 (0.711) / T-score (-1.2) / Z-score (0.2) BD/Dexa Bone Density Study IMPRESSION: The patient is considered osteopenic as outlined below according to World Maurice Organization (WHO) criteria with a moderate fracture risk. Reference Information: The T-score is the number of standard deviations above or below the standard which is normal for young adults at their peak bone mineral density. The World Health Organization (WHO) interprets the T-scores as follows: Above -1 Normal bone density Between -1 and -2.5 Osteopenia Equal to / or below -2.5 Osteoporosis As a practical clinical guideline, osteopenia may be graded as follows: Mild -1 through -1.5 Moderate -1.6 through -2.0 Severe -2.1 through -2.4 The Z-score is the number of standard deviations above or below age-matched controls. A Z-score of less than -1.5 would be considered abnormal. References: 1. NIH Osteoporosis and Related Bone Diseases www osteo.org 2. International Society for Clinical Densitometry www iscd.org 3. National Osteoporosis Foundation www nof.org Electronically Signed: Jay Guzmán MD at 13:43 EDT ,
== END 2021-11-05 23:59 | disposition home or self-care (01) ==
LOC: OPBD 11:26
PROVIDERS: PCP Internal Medicine; Visit Provider Internal Medicine Hematology & Oncology
DX: Z12.31 Encounter for screening mammogram for malignant neoplasm of breast (principal); Z85.3 Personal history of malignant neoplasm of breast; Z80.3 Family history of malignant neoplasm of breast; M85.89 Other specified disorders of bone density and structure, multiple sites
CPT/HCPCS: 77063; 77067; 77080

== ENCOUNTER 2021-11-19 09:35 | Outpatient (CLI) | payer MEDICARE, SELFPAY ==
[2020-08-20 14:32] VITALS: BMI 35.9
--- NOTE | 2021-11-19 09:37 | RAD_ITS ---
STUDY: X-RAY - LEFT KNEE REASON FOR EXAM: Female, 61 years old. Bilateral knee pain. TECHNIQUE: 4 view(s) of the knee. COMPARISON: None. FINDINGS: Normal visualized distal femur. Normal visualized proximal tibia and fibula. Normal proximal tibiofibular articulation. Mild arthrosis of the medial femorotibial compartment. Normal lateral femorotibial compartment. Mild arthrosis of the patellofemoral compartment. The soft tissue structures are unremarkable. RAD/Knee 4 or More Views IMPRESSION: Mild medial and patellofemoral compartment arthrosis. No acute abnormality, chondrocalcinosis, erosive changes or periostitis. Electronically Signed: Carlitos Miranda MD at 13:36 EDT ,
--- NOTE | 2021-11-19 09:42 | RAD_ITS ---
STUDY: X-RAY - RIGHT KNEE REASON FOR EXAM: Female, 61 years old. Bilateral knee pain. TECHNIQUE: 4 view(s) of the knee. COMPARISON: None. FINDINGS: Normal visualized distal femur. Normal visualized proximal tibia and fibula. Normal proximal tibiofibular articulation. Mild arthrosis of the medial femorotibial compartment. Normal lateral femorotibial compartment. Mild arthrosis of the patellofemoral compartment. The soft tissue structures are unremarkable. RAD/Knee 4 or More Views IMPRESSION: Mild medial and patellofemoral compartment arthrosis. No acute abnormality, chondrocalcinosis, erosive changes or periostitis. Electronically Signed: Carlitos Miranda MD at 13:37 EDT ,
--- NOTE | 2021-11-19 09:55 | RAD_ITS ---
STUDY: X-RAY - PELVIS AND BILATERAL HIPS REASON FOR EXAM: Female, 61 years old. Bilateral hip pain. TECHNIQUE: AP view of the pelvis.? 2 views of the right hip, and 2 views of the left hip were obtained. COMPARISON: None. FINDINGS: There is a non-specific bowel gas pattern. Normal visualized soft tissue structures. Osteopenia. Mild arthrosis of the right SI joint. Normal bilateral superior and inferior pubic rami. Mild arthrosis of the symphysis pubis. Normal bilateral ischial tuberosities. Mild arthrosis of both hips. RAD/Hips B/L min 2 views w/ Pelvis IMPRESSION: Osteopenia with osteoarthritic changes as described. No acute abnormality, erosive changes or fusion. Electronically Signed: Carlitos Miranda MD at 13:53 EDT ,
== END 2021-11-19 23:59 | disposition home or self-care (01) ==
LOC: RAD 09:36
PROVIDERS: PCP Internal Medicine; Referring Provider Internal Medicine; Visit Provider Internal Medicine
DX: M13.0 Polyarthritis, unspecified (principal); M25.551 Pain in right hip; M25.552 Pain in left hip; M25.561 Pain in right knee; M25.562 Pain in left knee
CPT/HCPCS: 73521; 73564

== ENCOUNTER 2021-11-25 12:06 | Outpatient (RCR) | payer MEDICARE, SELFPAY ==
[2020-08-20 14:32] VITALS: BMI 35.9
--- NOTE | 2021-11-25 13:02 | HP.PTEVAL_ITS ---
Patient's Visit Information ANGEL ALMODOVAR is a 61 year old F referred to Physical Therapy by Dr. Jose Bal MD with a diagnosis of B knee and hip pain R > L. Date of Evaluation: 11/25/21 Physical Therapist: MARIVEL Jimenez - Visit Plan Frequency: 1x/Week Duration: 2 Months Plan: 2X/ week for 6-8 weeks for AT for Neutral spine core stability, B hip and knee (R>L) ROM and strengthening, gait training, stretching with HEP. Pt is checking with Dr Olsen to make sure he is ok with her being in a 92 degree warm water pool and will get back to us. SHe just wants to make sure cause he told her no hot tubs or whirlpools. - Subjective Pt is having B hip and knee pain from arthritis that started 6 months ago from radiation from cancer. Side effect of radiation is arthritis per pt from . She had breast CA and is in remission. Pt reports that her R hip pain is a sharp pain. She can not bend down to get something off the floor and her R knee is a sharp pain that hurts with walking, bending, stooping or turning a certain way. She is more stiff when get up. Her R side is worse and stops her from doing what she has to do. She can not sit on the floor to play with her grandbabies because she can not get back up due to pain and weakness. She has noticed a lot of weakness since the CA and her leg will just give out on her and her R knee will not hold her anymore. She has N&T but that is equal on B side and thinks it is from neuropathy. When she is washing her back in the shower she will get tingling and hot down the back of her legs to her ankles. She has no history of back issues. The Dr was not sure why that is happening. She is going to the DM Dr and tell her (Dr Tse). This has been happening the last 4-5 months. Also if she bumps into things it will go down the back of the legs and it lasts until she moves. She used to walk 2 miles a day. She can walk 45 minutes at a time and then she will have to stop due to R hip and knee starting to hurt and that is with brakes also. She has steps at home and she can not do them. She had to move her bed downstairs. IF she does have to use the steps she has 2 rails and has to go one step at a time. Her R hip and knee pain is getting alittle worse but she tries to keep moving. SHe does use a cane sometimes if she has to walk far. - Pain R hip pain Pain Intensity (Out of 10): 7 R knee pain Pain Intensity (Out of 10): 4 L hip pain Pain Intensity (Out of 10): 5 L knee pain Pain Intensity (Out of 10): 0 - Objective Pt is very painful to move and transfer positions. Gait: Walks with WBOS and decrease stance time on the R LE. Pt is unable to heel or toe llift on the R b ecause her R leg will give out on her. LE MMT: R hip flex 3-/5 (increase pain to hip flex), L hip flex 4+/5, R knee ext 3+/5 and L 4/5, R knee flex 4-/5 and L 4+/5, R hip and 4+/5 and L 4+/5, Pt is able to do 1/2 normal ROM bridge with increase pain. PROM of the R hip to approx 85 degrees but had increase pain and had to stop and relax to get that ROM. Pt has increase pain with IR/ER PROM and AROM of the R hip. +SLR test on the R and +SLUMP test on the R. - Balance/Special Test Scores Lower Extremity Functional Score: 27 - Goals Goal 1:: I HEP Goal Time Frame: 6-8 Weeks Goal 2:: Be able to walk with equal stance time on B LE's Goal Time Frame: 6-8 Weeks Goal 3:: Be able to perform a LAQ on the R without having pain Goal Time Frame: 6-8 Weeks Goal 4:: Increase R hip flexion in sitting to full ROM flexion without pain. - Rehabilitation Potential Rehabilitation Potential: Fair - Anticipated Interventions Patient/Client Instruction: Educate patient on: Condition, Plan of Care For the Purpose of:: To decrease pain, To increase ROM, To improve nutrient delivery to tissue, To improve muscle performance and motor function, To improve ability to perform ADL's, To increase tolerance to activity/condition/position, To improve performance and independence with ADL's, To decrease level of supervision to perform tasks, To improve ability of physical actions for home/community/work/leisure, To improve gait and locomotor functions, To improve health of tissue, To decrease soft tissue restriction, To increase flexibility/ROM, To improve endurance, To improve balance, To improve safety with gait Therapeutic Exercise to Include: Strength training, Endurance training, Balance training, Body mechanics, Postural training, Flexibilty training, Gait and locomotor training, Neuromotor development, In an aquatic setting, Passive R OM, Active ROM, Dynamic Lumbar Stabilization For the Purpose of:: To decrease pain, To decrease swelling/inflammation, To increase ROM, To improve nutrient delivery to tissue, To increase oxygenation perfusion, To improve muscle performance and motor function, To improve ability to perform ADL's, To increase tolerance to activity/condition/position, To improve performance and independence with ADL's, To decrease level of supervision to perform tasks, To improve ability of physical actions for home/community/work/leisure, To improve gait and locomotor functions, To improve health of tissue, To decrease soft tissue restriction, To increase flexibility/ROM, To improve endurance, To improve balance, To improve safety with gait Functional Training to Include: Gait training For the Purpose of:: To improve gait and locomotor functions Manual Therapy Techniques to Include: Passive ROM, Soft tissue mobilization For the Purpose of:: To increase ROM, To improve nutrient delivery to tissue, To improve muscle performance and motor function Thank you for the opportunity to evaluate your patient. For Medicare and Medicare HMO plans, please review the plan of care and approve it. It will need to be FAXED BACK to us at [phone] for Medicare purposes. For Medicare only, by signing this I certify the plan of care. Please let me know if there are questions or concerns regarding this plan of care. Physician Signature: Date:
== END 2021-11-25 19:00 | disposition home or self-care (01) ==
LOC: PT 12:06
PROVIDERS: PCP Internal Medicine; Referring Provider Internal Medicine; Visit Provider Internal Medicine
DX: M25.561 Pain in right knee (principal); M25.562 Pain in left knee; M25.551 Pain in right hip; M25.552 Pain in left hip
CPT/HCPCS: 97162

== ENCOUNTER → 2022-02-17 | Outpatient (CLI) | payer MEDICARE, SELFPAY ==
[2020-08-20 14:32] VITALS: BMI 35.9
--- NOTE | 2022-02-17 14:50 | RAD_ITS ---
EXAM: XR LEFT RIBS, 2 VIEWS CLINICAL INDICATION: PAIN AND TENDERNESS H/O L BREAST CANCER -- LEFT RIBS VIEWS TECHNIQUE: Frontal and oblique views of the left ribs. This report was created using [employer] report generation technology. COMPARISON: August 14, 2021. FINDINGS: LUNGS AND PLEURAL SPACES: No pulmonary nodules, infiltrate or effusion involving the left or midline thorax. No pneumothorax. BONES/JOINTS: No destructive bone lesions involving left ribs or left shoulder. No displaced fracture. SOFT TISSUES: Small surgical clips project over the left breast-left lower lobe. No soft tissue swelling or gas. RAD/Ribs Unil 2V No CXR IMPRESSION: No acute findings in the left ribs, left shoulder, or midline-left thorax. Electronically Signed: Lisbeth Chandler MD at 7:27 EDT ,
== END | disposition home or self-care (01) ==
PROVIDERS: PCP Internal Medicine; Referring Provider Internal Medicine Hematology & Oncology; Visit Provider Internal Medicine Hematology & Oncology
DX: R07.81 Pleurodynia (principal); Z85.3 Personal history of malignant neoplasm of breast
CPT/HCPCS: 71100

== ENCOUNTER → 2022-05-12 | Outpatient (CLI) | payer MEDICARE, SELFPAY ==
[2020-08-20 14:32] VITALS: BMI 35.9
--- NOTE | 2022-05-12 18:46 | STRESSREP ---
Stress Test Report Pharmacologic myocardial perfusion stress test. 62-year-old lady with a history of chest pain and shortness of breath. Stress protocol: Resting EKG demonstrates normal sinus rhythm with a rate of 61 bpm normal intervals are noted. 0.4 mg of regadenoson was infused per usual protocol followed by rapid intravenous saline flush injection continuous EKG monitoring was performed. The maximum heart rate attained was 86 bpm which was 54% of max impacted heart rate the maximum workload was 1 metabolic equivalent. At rest there were no ST or T wave changes noted to suggest abnormal flow reserve and at peak infusion nonspecific ST-T wave changes were noted with no meet the criteria for ischemia. No clinical angina was noted Myocardial perfusion protocol. 12.0 mCi of technetium 99m sestamibi was injected at rest. 0.4 mg of regadenoson was infused per usual protocol. At peak infusion 34.7 mCi of technetium 99m sestamibi was injected stress images were obtained stress and rest images were reconstructed in comparing the short axis vertical long and horizontal long axis. Gated images were also obtained Perfusion SPECT analysis: Review of the stress images demonstrate normal uptake of tracer noted in all areas of the myocardium. The resting images similarly demonstrate normal uptake of tracer noted in all areas of the myocardium. No reversibility was noted suggest ischemia no previous infarct is noted. Gated SPECT analysis: The gated ejection fraction is noted to be 60%. Conclusion: Normal pharmacologic myocardial perfusion stress test. Preserved ejection fraction.
== END | disposition home or self-care (01) ==
LOC: CVS 06:15
PROVIDERS: PCP Internal Medicine; Referring Provider Nurse Practitioner Family; Visit Provider Nurse Practitioner Family
DX: R07.9 Chest pain, unspecified (principal); E11.9 Type 2 diabetes mellitus without complications; I10 Essential (primary) hypertension; E78.5 Hyperlipidemia, unspecified; Z95.5 Presence of coronary angioplasty implant and graft
CPT/HCPCS: 78452; 93017; A9500; A4216; J2785

== ENCOUNTER → 2022-05-20 | Outpatient (CLI) | payer MEDICARE, SELFPAY ==
[2020-08-20 14:32] VITALS: BMI 35.9
== END | disposition home or self-care (01) ==
PROVIDERS: PCP Internal Medicine; Referring Provider Nurse Practitioner Family; Visit Provider Nurse Practitioner Family
DX: G47.10 Hypersomnia, unspecified (principal)
CPT/HCPCS: 95810

== ENCOUNTER → 2022-08-13 | Outpatient (CLI) | payer MEDICARE, SELFPAY ==
[2020-08-20 14:32] VITALS: BMI 35.9
[2022-08-13 15:17] LABS: Absolute Lymphocyte Count 1.08 X10^3/uL (0.83-4.51); Absolute Neutrophil Count 3.9 X10^3/uL (2.0-7.7); Basophil# 0.02 X10^3/uL; Basophil% 0.4 % (0-1); Eosinophils% 3.6 % (0-5); Hematocrit 43.2 % (37-47); Hemoglobin 14.6 g/dL (12.0-15.0); Lymphocyte # 1.08 X10^3/ul (0.83-4.51); Lymphocyte % 19.3 % (19-41); Mean Corp Hgb Conc 33.8 g/dL (32-36); Mean Corpuscular Hgb 29.3 pg (27.0-32.0); Mean Corpuscular Volume 86.6 fL (81-99); Mean Platelet Vol. 11.9 fl (6.2-12.0); Monocyte% 7.1 % (0-10); NRBC Flagged by Analyzer 0 % (0-5); Neutrophil # 3.88 X10^3/uL (2.7-7.7); Neutrophil % 69.2 % (47-70); Platelet Count 237 K/mm3 (150-450); RBC Distribution Width CV 13.4 % (11.6-14.6); RBC Distribution Width SD 41.6 fl (35.1-43.9); Red Blood Count 4.99 M/mm3 (4.2-5.4); White Blood Count 5.6 K/mm3 (4.4-11.0)
[2022-08-13 16:51] LABS: ALB/GLOB Ratio 1.2 RATIO (0.9-2.4); AST(SGOT) 25 U/L (15-37); Alanine Aminotransfer ALT/SGPT 42 U/L (13-56); Alkaline Phosphatase 75 U/L (45-117); Anion Gap 10 (5-15); BUN 13 mg/dL (7-18); BUN/Creat Ratio 13.8 RATIO (10-20); Calcium,Total 9.3 mg/dL (8.5-10.1); Chloride 101 mmol/L (98-107); Creatinine, Serum 0.94 mg/dL (0.55-1.02); EST Glomerular Filtration Rate 64 mL/min (>60); Est Glom Filt Rate - Afr Amer 77 mL/min (>60); Globulin 3.4 g/dL (2.2-4.2); Glucose 383 mg/dL (74-106); Potassium 4.3 mmol/L (3.5-5.1); Protein, Total 7.4 g/dL (6.4-8.2); Sodium Level 136 mmol/L (136-145)
== END | disposition home or self-care (01) ==
LOC: MTLAB 10:51
PROVIDERS: PCP Family Medicine; Referring Provider Internal Medicine Rheumatology; Visit Provider Internal Medicine Rheumatology
DX: M06.09 Rheumatoid arthritis without rheumatoid factor, multiple sites (principal); E11.42 Type 2 diabetes mellitus with diabetic polyneuropathy; E11.22 Type 2 diabetes mellitus with diabetic chronic kidney disease; M79.7 Fibromyalgia; I12.9 Hypertensive chronic kidney disease with stage 1 through stage 4 chronic kidney disease, or unspecified chronic kidney disease; E78.5 Hyperlipidemia, unspecified; I25.10 Atherosclerotic heart disease of native coronary artery without angina pectoris; N18.9 Chronic kidney disease, unspecified; J45.909 Unspecified asthma, uncomplicated; F41.9 Anxiety disorder, unspecified; F32.A Depression, unspecified; N39.46 Mixed incontinence; G47.10 Hypersomnia, unspecified; H81.10 Benign paroxysmal vertigo, unspecified ear; Z85.3 Personal history of malignant neoplasm of breast; Z79.899 Other long term (current) drug therapy
CPT/HCPCS: 36415; 80053; 85025

== ENCOUNTER 2022-09-23 12:56 | Outpatient (CLI) | payer MEDICARE, SELFPAY ==
[2020-08-20 14:32] VITALS: BMI 35.9
[2022-09-23 15:07] LABS: Absolute Lymphocyte Count 1.77 X10^3/uL (0.83-4.51); Absolute Neutrophil Count 4.6 X10^3/uL (2.0-7.7); Basophil# 0.05 X10^3/uL; Basophil% 0.7 % (0-1); Eosinophil# 0.23 X10^3/uL; Eosinophils% 3.2 % (0-5); Hematocrit 43.3 % (37-47); Lymphocyte # 1.77 X10^3/ul (0.83-4.51); Mean Corp Hgb Conc 32.3 g/dL (32-36); Mean Corpuscular Hgb 29.3 pg (27.0-32.0); Mean Corpuscular Volume 90.6 fL (81-99); Mean Platelet Vol. 11.2 fl (6.2-12.0); Monocyte# 0.41 X10^3/uL; Monocyte% 5.8 % (0-10); NRBC Flagged by Analyzer 0 % (0-5); Neutrophil # 4.61 X10^3/uL (2.7-7.7); Platelet Count 269 K/mm3 (150-450); RBC Distribution Width CV 13.1 % (11.6-14.6); RBC Distribution Width SD 42.5 fl (35.1-43.9); Red Blood Count 4.78 M/mm3 (4.2-5.4); White Blood Count 7.1 K/mm3 (4.4-11.0)
[2022-09-23 15:36] LABS: AST(SGOT) 28 U/L (15-37); Alanine Aminotransfer ALT/SGPT 50 U/L (13-56); Albumin, Serum 3.7 g/dL (3.2-5.0); Alkaline Phosphatase 72 U/L (45-117); Anion Gap 8 (5-15); BUN 19 mg/dL (7-18); BUN/Creat Ratio 23.7 RATIO (10-20); Calcium,Total 9.2 mg/dL (8.5-10.1); Chloride 104 mmol/L (98-107); EST Glomerular Filtration Rate 77 mL/min (>60); Est Glom Filt Rate - Afr Amer 93 mL/min (>60); Globulin 3.6 g/dL (2.2-4.2); Glucose 309 mg/dL (74-106); Potassium 4.3 mmol/L (3.5-5.1); Protein, Total 7.3 g/dL (6.4-8.2); Sodium Level 137 mmol/L (136-145)
== END 2022-09-23 23:59 | disposition home or self-care (01) ==
PROVIDERS: PCP Family Medicine; Referring Provider Internal Medicine Hematology & Oncology; Visit Provider Internal Medicine Hematology & Oncology
DX: D05.12 Intraductal carcinoma in situ of left breast (principal)
CPT/HCPCS: 36415; 80053; 85025

== ENCOUNTER → 2022-10-01 | Outpatient (CLI) | payer MEDICARE, SELFPAY ==
[2020-08-20 14:32] VITALS: BMI 35.9
[2022-10-01 17:50] LABS: Absolute Lymphocyte Count 1.39 X10^3/uL (0.83-4.51); Absolute Neutrophil Count 4.7 X10^3/uL (2.0-7.7); Basophil# 0.04 X10^3/uL; Basophil% 0.6 % (0-1); Eosinophil# 0.19 X10^3/uL; Eosinophils% 2.8 % (0-5); Hematocrit 40.9 % (37-47); Hemoglobin 13.5 g/dL (12.0-15.0); Lymphocyte # 1.39 X10^3/ul (0.83-4.51); Lymphocyte % 20.7 % (19-41); Mean Corpuscular Hgb 29.9 pg (27.0-32.0); Mean Corpuscular Volume 90.5 fL (81-99); Monocyte# 0.37 X10^3/uL; Monocyte% 5.5 % (0-10); NRBC Flagged by Analyzer 0 % (0-5); Neutrophil # 4.72 X10^3/uL (2.7-7.7); Neutrophil % 70.1 % (47-70); Platelet Count 248 K/mm3 (150-450); RBC Distribution Width CV 13.2 % (11.6-14.6); RBC Distribution Width SD 43.3 fl (35.1-43.9); Red Blood Count 4.52 M/mm3 (4.2-5.4); White Blood Count 6.7 K/mm3 (4.4-11.0)
[2022-10-01 18:44] LABS: AST(SGOT) 34 U/L (15-37); Alanine Aminotransfer ALT/SGPT 45 U/L (13-56); Albumin, Serum 3.5 g/dL (3.2-5.0); Alkaline Phosphatase 73 U/L (45-117); Anion Gap 8 (5-15); BUN 18 mg/dL (7-18); BUN/Creat Ratio 19.9 RATIO (10-20); Calcium,Total 9.1 mg/dL (8.5-10.1); Chloride 98 mmol/L (98-107); EST Glomerular Filtration Rate 67 mL/min (>60); Est Glom Filt Rate - Afr Amer 81 mL/min (>60); Globulin 3.5 g/dL (2.2-4.2); Glucose 466 mg/dL (74-106); Potassium 4.1 mmol/L (3.5-5.1); Sodium Level 134 mmol/L (136-145)
== END | disposition home or self-care (01) ==
LOC: MTLAB 14:14
PROVIDERS: PCP Family Medicine; Referring Provider Internal Medicine Rheumatology; Visit Provider Internal Medicine Rheumatology
DX: M06.09 Rheumatoid arthritis without rheumatoid factor, multiple sites (principal); E11.42 Type 2 diabetes mellitus with diabetic polyneuropathy; M79.7 Fibromyalgia; I12.9 Hypertensive chronic kidney disease with stage 1 through stage 4 chronic kidney disease, or unspecified chronic kidney disease; E78.5 Hyperlipidemia, unspecified; I25.10 Atherosclerotic heart disease of native coronary artery without angina pectoris; N18.9 Chronic kidney disease, unspecified; J45.909 Unspecified asthma, uncomplicated; F41.9 Anxiety disorder, unspecified; F32.A Depression, unspecified; N39.46 Mixed incontinence; G47.10 Hypersomnia, unspecified; H81.10 Benign paroxysmal vertigo, unspecified ear; Z86.79 Personal history of other diseases of the circulatory system; Z85.3 Personal history of malignant neoplasm of breast; Z79.899 Other long term (current) drug therapy
CPT/HCPCS: 36415; 80053; 85025

== ENCOUNTER → 2022-10-13 | Outpatient (CLI) | payer MEDICARE, SELFPAY ==
[2020-08-20 14:32] VITALS: BMI 35.9
[2022-10-13 11:09] LABS: AST(SGOT) 38 U/L (15-37); Alanine Aminotransfer ALT/SGPT 28 U/L (13-56); Albumin, Serum 3.4 g/dL (3.2-5.0); Alkaline Phosphatase 68 U/L (45-117); Bilirubin, Direct 0.12 mg/dL (0.00-0.30); Cholesterol 168 mg/dL (200); Globulin 3.6 g/dL (2.2-4.2); High Density Lipoprotein 62 mg/dL; Triglycerides 226 mg/dL; Very Low Density Lipoprotein 45 mg/dL (5-40)
== END | disposition home or self-care (01) ==
LOC: LAB 10:01
PROVIDERS: Nurse Practitioner Family; PCP Family Medicine; Visit Provider Nurse Practitioner Gerontology
DX: E78.00 Pure hypercholesterolemia, unspecified (principal)
CPT/HCPCS: 36415; 80061; 80076

== ENCOUNTER 2023-01-08 01:24 | Emergency (ER) | payer MEDICARE, SELFPAY ==
[2023-01-05 11:47] VITALS: BMI 35.9
[2023-01-08 01:25] VITALS: BP 163/88; PULSE 74; RESP 18; TEMP 36.6; O2SAT 96; BMI 35.9
--- NOTE | 2023-01-08 01:41 | ED.VIS.CHEST ---
HPI History of Present Illness Chief Complaint: Chest Pain [facility] Medical History Abnormal mammogram Asthma Atherosclerosis of coronary artery of [place] heart without angina pectoris Bilateral hip pain Bilateral knee pain Breast cancer Chronic headache Chronic kidney disease, stage 3 Chronic suprapubic pain COPD (chronic obstructive pulmonary disease) Depression Diabetes mellitus type 2 in obese Essential (primary) hypertension GERD (gastroesophageal reflux disease) Hyperlipidemia Ischemic cardiomyopathy Learning disabilities Memory loss Noncompliance with diabetes treatment Obesity Osteoarthritis Polyarthropathy Rheumatoid arthritis Seasonal allergies STEMI (ST elevation myocardial infarction) (10/10/18) Strep pharyngitis Type 2 diabetes mellitus Type 2 diabetes mellitus Urinary incontinence Home Medications aspirin 81 mg tablet,delayed release 81 mg PO DAILY@0800 10/12/18 [Rx Last Taken 09/28/19] meclizine 25 mg tablet 25 mg PO TID PRN PRN Dizziness 07/14/20 [History Last Taken Unknown] calcium carbonate 200 mg calcium (500 mg)-vitamin D3 400 unit tablet 1 tab PO BID 08/26/20 [History Last Taken Unknown] fluticasone 250 mcg-salmeterol 50 mcg/dose blistr powdr for inhalation 1 ea inhalation BID #60 ea 10/22/20 [Rx Last Taken Unknown] polyethylene glycol 3350 17 gram oral powder packet 17 g PO DAILY PRN Constipation 10/30/21 [History Last Taken Unknown] insulin syringe-needle U-100 0.3 mL 31 gauge x 5/16 (BD Insulin Syringe Ultra-Fine) #120 ea 11/24/21 [Rx Last Taken Unknown] blood-glucose meter (Accu-Chek Gwendolyn Plus Meter) #1 ea 02/16/22 [Rx Last Taken Unknown] flash glucose sensor (FreeStyle To 2 Sensor kit) #2 ea 05/14/22 [Rx Last Taken Unknown] albuterol sulfate 90 mcg/actuation aerosol inhaler (Ventolin HFA) 2 puff inhalation Q6H PRN 07/15/22 [History Last Taken Unknown] folic acid 20 mg capsule 20 mg PO DAILY 07/15/22 [History Last Taken Unknown] methotrexate sodium 2.5 mg tablet 12.5 mg PO QWEEK 07/15/22 [History Last Taken Unknown] omeprazole 40 mg capsule,delayed release 40 mg PO DAILY #90 caps 08/05/22 [Rx Last Taken Unknown] buspirone 10 mg tablet 10 mg PO BID Anxiety #180 tabs 08/07/22 [Rx Last Taken Unknown] duloxetine 30 mg capsule,delayed release 30 mg PO BID #180 caps 08/07/22 [Rx Last Taken Unknown] oxybutynin chloride 10 mg tablet,extended release 24 hr 10 mg PO DAILY #90 tabs 08/07/22 [Rx Last Taken Unknown] trazodone 100 mg tablet 200 mg PO DAILY #180 tabs 08/07/22 [Rx Last Taken Unknown] Lantus U-100 Insulin 100 unit/mL subcutaneous solution (insulin glargine) 32 unit (0.32 mL) subcut DAILY #10 mL 08/12/22 [Rx Last Taken Unknown] nitroglycerin 0.4 mg sublingual tablet 0.4 mg sublingual Q5-15M PRN chest pain #25 tabs 08/12/22 [Rx Last Taken Unknown] alcohol swabs 1 pad topical 4X/DAY #200 ea 08/26/22 [Rx Last Taken Unknown] blood sugar diagnostic (Accu-Chek Gwendolyn Plus test strips) #200 ea 09/03/22 [Rx Last Taken Unknown] lancets 28 gauge (Comfort EZ Lancets) #100 ea 09/03/22 [Rx Last Taken Unknown] Novolog U-100 Insulin aspart 100 unit/mL subcutaneous solution (insulin aspart U-100) 20 unit (0.2 mL) subcut TID #20 mL 10/08/22 [Rx Last Taken Unknown] rosuvastatin 40 mg tablet 40 mg PO DAILY cholestrol #90 tabs 10/12/22 [Rx Last Taken Unknown] anastrozole 1 mg tablet 1 mg PO DAILY #90 tabs 12/22/22 [Rx Last Taken Unknown] carvedilol 6.25 mg tablet 6.25 mg PO BID #180 tabs 12/22/22 [Rx Last Taken Unknown] isosorbide mononitrate 60 mg tablet,extended release 24 hr 60 mg PO DAILY #90 tabs 12/22/22 [Rx Last Taken Unknown] Trulicity 0.75 mg/0.5 mL subcutaneous pen injector (dulaglutide) 0.75 mg (0.5 mL) subcut QWEEK #2 mL 01/05/23 [Rx Last Taken Unknown] glimepiride 4 mg tablet 4 mg PO BID #60 tabs 01/05/23 [Rx Last Taken Unknown] Allergy/AdvReac Type Severity Reaction Status Date / Time egg Allergy Severe Anaphylaxis Verified 01/08/23 01:27 fish derived Allergy Severe Unknown Verified 01/08/23 01:27 nitrofurantoin Allergy Severe Anaphylaxis Verified 01/08/23 01:27 macrocrystalline [From Macrodantin] calcium carbonate AdvReac Severe unknown Verified 01/08/23 01:27 [From Florical] codeine AdvReac Severe unknown Verified 01/08/23 01:27 oxycodone HCl [From Percocet] AdvReac Severe unknown Verified 01/08/23 01:27 propoxyphene napsylate AdvReac Severe unknown Verified 01/08/23 01:27 [From Darvocet-N 100] sodium fluoride AdvReac Severe unknown Verified 01/08/23 01:27 [From Florical] Sulfa (Sulfonamide AdvReac Severe Hives Verified 01/08/23 01:27 Antibiotics) tamoxifen AdvReac Severe Hives Verified 01/08/23 01:27 morphine AdvReac Other Verified 01/08/23 01:27 Family History Sister Heart disease Breast cancer Asthma Depression Mother Diabetes Heart disease Breast cancer Arthritis Father Diabetes Heart disease Arthritis Unknown No problems noted. Brother Arthritis Surgical History H/O breast surgery History of coronary artery stent placement (10/10/18) History of hysterectomy History of left heart catheterization (LHC) (03/15/19) Hx of cholecystectomy Social History Smoking Status: Never smoker alcohol intake: never substance use type: does not use caffeine: No what type of physical activity do you participate in: walking, aerobics and weight training EXAM Physical Exam Const Vital Signs: 01/08/23 01:25 01/08/23 01:28 01/08/23 02:05 Temperature 97.9 F Temperature Source Temporal Pulse Rate 74 Respiratory Rate 18 Respiratory Effort Normal Non-Labored Blood Pressure 163/88 H Blood Pressure Mean 113 Pulse Ox 96 Oxygen Delivery Method Room Air Room Air Heart Score History: Slightly/Non-Suspicious ECG: Normal Age: >45 - <65 years Risk Factors: >/= 3 Risk Factors or History of CAD Troponin: </= Normal Limit Score: 3 MDM MDM MDM Narrative Medical decision making narrative: HISTORY OF PRESENT ILLNESS: 62-year-old female here with chest pain.. Patient states she has left-sided chest pain with reflux and belching. History of GERD, hypertension, hyperlipidemia, type 2 diabetes, CAD. The patient states she recently started Trulicity. There is a new medicine for her and ever since has been belching. Tonight she noted episode of nonbloody nonbilious vomitus. That exacerbated her chest pain. States chest pain between her shoulder blades. Is not ripping or tearing. Is not associated with loss of sensation weakness. No bleeding diathesis noted. No diarrhea noted. The patient denies recent surgery in the last 4 weeks or immobilization in the last 3 days, denies previous diagnosis of DVT or PE, hemoptysis, unilateral leg swelling or malignancy with treatment the last 6 months. No estrogen use noted. Patient denies sudden onset of pain, no tearing sensation, no migratory symptoms, no new numbness, weakness or loss of sensation. Patient denies family history or personal history of Marfan syndrome or Teresa-Danlos REVIEW OF SYSTEMS: Pertinent positives: Chest pain, shortness of breath, nausea or vomiting Pertinent negatives: Syncope, PHYSICAL EXAM: Nursing triage notes reviewed, Vital signs reviewed Constitutional: please see mdm HENT: MMM Eyes: Pupils equal round and reactive to light, Extraocular muscles intact Neck: No stridor, no JVD, full neck ROM, no crepitus Lungs: Clear to auscultation, No wheezing or rales. No increased work of breathing, no conversational dyspnea, no accessory muscle use, no nasal flaring. No respiratory distress noted, no crepitus to chest Heart: Regular rate and rhythm, No murmurs, No rubs and No gallops, 2+ distal pulses (radial, femoral, posterior tibial) in all extremities Abdomen: Soft, there is no tenderness, rigidity, rebound or guarding, no obvious peritoneal signs, no palpable pulsatile abdominal masses, no auscultated abdominal bruit : No CVAT Extremities: No edema Neuro: No focal neurological deficits, cranial nerves II through XII intact, 5/5 strength in all extremities. Intact sensation to light touch in all extremities, 2+ reflexes bilateral patella tendons. Normal gait. No ataxia. Skin: No rash or lesions noted MEDICAL DECISION MAKING: Chief Complaint: Chest pain External records reviewed: Last stress test in 2020 was normal, last echocardiogram from 2019 shows ejection fraction 65% Factors affecting care: Type 2 diabetes, hyperlipidemia, hypertension, CAD Social determinants of health: Never smoker History obtained from others: Consults: ALL IMAGES (IF OBTAINED) HAVE BEEN PERSONALLY REVIEWED AND INTERPRETED BY MYSELF. MDM Narrative: The patient was hemodynamically stable, afebrile, nontoxic-appearing I considered the following differential diagnosis: Arrhythmia, anemia, ACS, GI etiology, PE, dissection Exam without crepitus to chest. Lungs were clear. I obtained a broad lab and imaging work-up to further elucidate the etiology of the patient's complaints. Today obtaining a CTA of the chest to rule out dissection or PE however the patient had a low risk factor profile for PE with a low risk Wells score. There are no concerning physical exam or historical findings for aortic dissection. Her initial EKG was nonischemic. Chest x-ray which was interpreted by myself shows no evidence of pneumomediastinum to suggest Geni-Leon or Boerhaave syndrome. No evidence of pneumonia, pneumothorax, pulmonary edema or cardiomegaly. Labs with indeterminate initial troponin, delta troponin . Heart score 3, low risk. There is no indication for further hospitalization or ED evaluation at this time. Suspect the patient's etiology secondary to side effects from starting Trulicity. She is given strict return precautions and follow-up instructions. I completed a HEART Score to screen for Major Adverse Cardiac Event (MACE) in this patient. The evidence indicates that the patient is very low risk for MACE and this is consistent with my clinical intuition. The risk of further workup or hospitalization for MACE is likely higher than the risk of the patient having a MACE. It is, therefore, in the patient?s best interest not to do additional emergent testing or to be hospitalized for MACE at this time. Shared Decision-Making No hospitalization indicated I have discussed with the patient my clinical impression and the result of the HEART Score to screen for MACE, as well as the risks of further testing and hospitalization. The HEART Score shows that the risk for MACE is less than 1%. Although the risk of MACE has not been completely eliminated, the risks of further testing or hospitalization for MACE likely exceed any potential benefit, and the patient agrees with not pursuing further emergent evaluation or hospitalization for MACE at this time. The patient and/or family, caregivers express understanding. The patient and/or family, caregivers agrees with the plan. Total critical care time today provided was at least 0 minutes. This excludes separately billable procedures. Critical care time (if documented) is secondary to the patient having high probability of clinically significant/life threatening deterioration in the patient's condition which required my urgent intervention. Shared decision making: I will have a discussion with the patient and or visitors regarding risk/benefits of further testing or admission. They will be made aware of of the risk/benefits inherent in this decision they will be given the opportunity to voice understanding. Lab Data Attestation: I reviewed the patient's lab results. Lab results narrative: EKG with normal sinus rhythm, normal axis, normal intervals, no STEMI CBC without leukocytosis, severe anemia, no thrombocytopenia. BMP without evidence of significant electrolyte abnormalities, no anion gap, no acute kidney injury. Troponin is indeterminate no evidence of myocardial ischemia we will wait for delta BNP within normal limits suggestive of no volume overload Labs: Laboratory Results - last 24 hr 01/08/23 01/08/23 01/08/23 02:00 02:00 02:00 WBC 7.1 RBC 4.92 Hgb 14.3 Hct 42.6 MCV 86.6 MCH 29.1 MCHC 33.6 RDW Std Deviation 38.5 RDW Coeff of Sanjay 12.2 Plt Count 241 MPV 10.9 Immature Gran % (Auto) 0.300 Neut % (Auto) 58.4 Lymph % (Auto) 30.3 [place] % (Auto) 7.6 Eos % (Auto) 2.8 Baso % (Auto) 0.6 Absolute Neuts (auto) 4.2 Absolute Lymphs (auto) 2.16 Nucleated RBC % 0 Sodium 138 Potassium 3.8 Chloride 104 Carbon Dioxide 26.0 Anion Gap 8 BUN 17 Creatinine 0.68 Estim Creat Clear Calc 100.53 Est GFR (MDRD) Af Amer 111 Est GFR (MDRD) Non-Af 92 BUN/Creatinine Ratio 24.8 H Glucose 285 H Calcium 9.5 Troponin I High Sens 17 B-Natriuretic Peptide 19.2 Radiography Chest X-Ray - ED: Read by ED Physician Diagnostic Testing: Clinical Impression(s) from Imaging Studies Chest X-Ray 01/08/23 01:53 IMPRESSION: No evidence of active intrathoracic disease. Electronically Signed: Patricia Ingram MD at 2:58 EDT , I have personally reviewed the patient's chest x-ray. Chest x-ray is unremarkable for pulmonary edema, pneumothorax, pneumonia or focal cardiopulmonary abnormality.. Discharge Plan Triage Chief Complaint: Chest Pain ED Provider: Bradly Pastrana Dx/Rx/DC Orders Clinical Impression: Chest pain, Indigestion, Nausea & vomiting Instructions: Trulicity Auto-Injector 1.5 mg/mL (0.5 mL), ED Chest Pain, Noncardiac, ED Vomiting (Adult) Prescriptions: No Action calcium carbonate 200 mg calcium (500 mg)-vitamin D3 400 unit tablet 200 mg (500 mg) -400 unit tablet 1 tab PO BID fluticasone propion-salmeterol 250-50 mcg/dose blister with device 1 ea INHALATION BID Qty: 60 3RF (DME) insulin syringe-needle U-100 [BD Insulin Syringe Ultra-Fine] 0.3 mL 31 gauge x 5/16 syringe See Rx Instructions .ROUTE .MEDSUPPLY Qty: 120 8RF Rx Instructions: 4 times daily (DME) blood-glucose meter [Accu-Chek Gwendolyn Plus Meter] Mis See Rx Instructions .Route Qty: 1 0RF Rx Instructions: As directed (DME) FreeStyle To 2 Sensor Kit See Rx Instructions .Route Qty: 2 6RF Rx Instructions: As directed albuterol sulfate [Ventolin HFA] 90 mcg/actuation HFA aerosol inhaler 2 puff inhalation Q6H PRN methotrexate sodium 2.5 mg tablet 12.5 mg PO QWEEK Rx Instructions: TAKE 5 TABS EVERY WEDNESDAY folic acid 20 mg capsule 20 mg PO DAILY polyethylene glycol 3350 17 gram powder in packet 17 g PO DAILY PRN (Reason: Constipation) aspirin 81 MG tablet 81 mg PO DAILY@0800 0RF meclizine 25 MG tablet 25 mg PO TID PRN PRN (Reason: Dizziness) omeprazole 40 mg capsule,delayed release(DR/EC) 40 mg PO DAILY Qty: 90 1RF trazodone 100 mg tablet 200 mg PO DAILY Qty: 180 1RF buspirone 10 mg tablet 10 mg PO BID Qty: 180 1RF oxybutynin chloride 10 mg tablet extended release 24hr 10 mg PO DAILY Qty: 90 1RF duloxetine 30 mg capsule,delayed release(DR/EC) 30 mg PO BID Qty: 180 1RF nitroglycerin 0.4 mg tablet, sublingual 0.4 mg SUBLINGUAL Q5-15M PRN (Reason: chest pain) Qty: 25 5RF Rx Instructions: until response; do not exceed 3 doses per episode insulin glargine [Lantus U-100 Insulin] 100 unit/mL solution 32 unit subcut DAILY Qty: 10 6RF alcohol swabs Pads, Medicated 1 pad topical 4X/DAY Qty: 200 3RF (DME) Accu-Chek Gwendolyn Plus test strp Strip See Rx Instructions .Route Qty: 200 6RF Rx Instructions: 5x/day (DME) lancets [Comfort EZ Lancets] 28 gauge misc See Rx Instructions .Route Qty: 100 5RF Rx Instructions: 4x/day insulin aspart U-100 [Novolog U-100 Insulin aspart] 100 unit/mL solution 20 unit subcut TID Qty: 20 6RF rosuvastatin 40 mg tablet 40 mg PO DAILY Qty: 90 3RF anastrozole 1 mg tablet 1 mg PO DAILY Qty: 90 3RF carvedilol 6.25 mg tablet 6.25 mg PO BID Qty: 180 3RF isosorbide mononitrate 60 mg tablet extended release 24 hr 60 mg PO DAILY Qty: 90 3RF Trulicity 0.75 mg/0.5 mL pen injector 0.75 mg subcut QWEEK Qty: 2 4RF glimepiride 4 mg tablet 4 mg PO BID Qty: 60 3RF Primary Care Provider: Felicita Hill Referrals: Felicita Hill, DO [Primary Care Provider] - Activity Restrictions/Additional Instructions: Thank you for trusting us with your care today! Please take Tylenol (2 pills, 650 mg). Please take Zofran as needed for nausea and vomiting. Please discuss alternative antidiabetic treatment regimen with your primary care physician and does not include Trulicity as I believe this is causing your presentation tonight. Please return to the emergency department if your symptoms change or worsen. Please follow with your primary care physician for further outpatient evaluation and management. Disposition Disposition: Home, Self Care
--- NOTE | 2023-01-08 01:53 | RAD_ITS ---
INDICATION: chest pain EXAMINATION/TECHNIQUE: X-RAY - XR Chest 1 View AP portable. 3:19 AM COMPARISON: 08/14/2021 FINDINGS: LINES/DEVICES: None. LUNGS: No consolidation. No pneumothorax. MEDIASTINUM: Unremarkable. CARDIAC SIL[place]ETTE: Not enlarged. BONES AND SOFT TISSUES: No acute abnormalities. Surgical clips upper abdomen cholecystectomy. Mild gastric distention. RAD/Chest 1 View (Portable) IMPRESSION: No evidence of active intrathoracic disease. Electronically Signed: Patricia Ingram MD at 2:58 EDT ,
--- NOTE | 2023-01-08 01:53 | EKG12_ITS ---
Test Reason : CP Blood Pressure : / mmHG Vent. Rate : 069 BPM Atrial Rate : 069 BPM P-R Int : 146 ms QRS Dur : 086 ms QT Int : 396 ms P-R-T Axes : 051 024 025 degrees QTc Int : 424 ms Normal sinus rhythm Normal ECG Confirmed by MALLORIE MYERS, KATINA ([id number]), multimedia editor ALEJANDRINA BRYAN ([id number]) on 01/11/2023 1:32:45 PM Referred By: Confirmed By:KATINA NOBLES MD
[2023-01-08] MEDS: Aspirin 81 MG TAB.CHEW 324 MG PO (02:02)
[2023-01-08] MEDS: 0.9% Normal Saline 1,000 ML 1000 ML IV (02:02)
[2023-01-08] MEDS: Ondansetron 4 MG/2 ML Vial IV (02:02)
[2023-01-08] MEDS: Famotidine 200 MG/20 ML MDV 20 MG in 0.9% Normal Saline (Pres. free 8 ML 300 MG IV (02:02)
[2023-01-08 02:06] LABS: Absolute Lymphocyte Count 2.16 X10^3/uL (0.83-4.51); Absolute Neutrophil Count 4.2 X10^3/uL (2.0-7.7); Basophil# 0.04 X10^3/uL; Basophil% 0.6 % (0-1); Eosinophils% 2.8 % (0-5); Hematocrit 42.6 % (37-47); Hemoglobin 14.3 g/dL (12.0-15.0); Lymphocyte # 2.16 X10^3/ul (0.83-4.51); Lymphocyte % 30.3 % (19-41); Mean Corp Hgb Conc 33.6 g/dL (32-36); Mean Corpuscular Hgb 29.1 pg (27.0-32.0); Mean Corpuscular Volume 86.6 fL (81-99); Mean Platelet Vol. 10.9 fl (6.2-12.0); Monocyte# 0.54 X10^3/uL; Monocyte% 7.6 % (0-10); NRBC Flagged by Analyzer 0 % (0-5); Neutrophil # 4.16 X10^3/uL (2.7-7.7); Neutrophil % 58.4 % (47-70); Platelet Count 241 K/mm3 (150-450); RBC Distribution Width CV 12.2 % (11.6-14.6); RBC Distribution Width SD 38.5 fl (35.1-43.9); Red Blood Count 4.92 M/mm3 (4.2-5.4); White Blood Count 7.1 K/mm3 (4.4-11.0)
[2023-01-08 02:25] LABS: BNP,B-Type NATRIURETIC PEPTIDE 19.2 pg/mL (0-100)
[2023-01-08 02:29] LABS: Anion Gap 8 (5-15); BUN 17 mg/dL (7-18); BUN/Creat Ratio 24.8 RATIO (10-20); Calcium,Total 9.5 mg/dL (8.5-10.1); Chloride 104 mmol/L (98-107); Creatinine, Serum 0.68 mg/dL (0.55-1.02); EST Glomerular Filtration Rate 92 mL/min (>60); Est Glom Filt Rate - Afr Amer 111 mL/min (>60); Estimated Creatinine Clearance 100.53 ml/min; Glucose 285 mg/dL (74-106); Potassium 3.8 mmol/L (3.5-5.1); Sodium Level 138 mmol/L (136-145); Troponin-I HS (w/2H Reflex) 17 pg/mL (3.0-54.0)
[2023-01-08 04:05] LABS: Reflex Troponin-HS? (from REC) Y
[2023-01-08 04:23] LABS: Troponin-I HS 18 pg/mL (3.0-54.0)
[2023-01-08 04:34] VITALS: BP 140/67; PULSE 75; RESP 18; O2SAT 98
== END 2023-01-08 04:35 | disposition home or self-care (01) ==
PROVIDERS: Emergency Provider Emergency Medicine; PCP Family Medicine; Visit Provider Emergency Medicine
DX: R07.9 Chest pain, unspecified (principal); J44.9 Chronic obstructive pulmonary disease, unspecified; E11.22 Type 2 diabetes mellitus with diabetic chronic kidney disease; N18.30 Chronic kidney disease, stage 3 unspecified; R11.2 Nausea with vomiting, unspecified; K30 Functional dyspepsia; E78.5 Hyperlipidemia, unspecified; I25.10 Atherosclerotic heart disease of native coronary artery without angina pectoris; I12.9 Hypertensive chronic kidney disease with stage 1 through stage 4 chronic kidney disease, or unspecified chronic kidney disease; R06.02 Shortness of breath; Z79.84 Long term (current) use of oral hypoglycemic drugs; K21.9 Gastro-esophageal reflux disease without esophagitis; Z79.85 Long-term (current) use of injectable non-insulin antidiabetic drugs
CPT/HCPCS: 71045; 80048; 83880; 84484; 85025; 93005; 96361; 96374; 96375; 99285; J7030; A4216; J2405; J3490

== ENCOUNTER 2023-02-15 09:15 | Emergency (ER) | payer MEDICARE, SELFPAY ==
[2023-01-05 11:47] VITALS: BMI 35.9
[2023-02-15 09:15] VITALS: BP 155/92; PULSE 64; RESP 18; TEMP 36.5; O2SAT 96; BMI 36.3
--- NOTE | 2023-02-15 09:24 | EX.ED.UPPERE ---
HPI History of Present Illness Chief Complaint: Upper Extremity Injury Detail of Chief Complaint: Left wrist injury Informant: patient Occured/Mechanism Mechanism/Context: Yes fall Onset/Context/Timing Onset: Today Current Severity: Moderate Maximum Severity: Moderate Narrative Narrative: Patient presents secondary to fall with left wrist injury. She states she tripped over a dog bone this morning and put her hand out to catch herself. She is a deformity to the left wrist. She denies any other injury. She is right-hand dominant. She takes aspirin daily but no other form of anticoagulation. [facility] Medical History Abnormal mammogram Asthma Atherosclerosis of coronary artery of [place] heart without angina pectoris Bilateral hip pain Bilateral knee pain Breast cancer Chronic headache Chronic kidney disease, stage 3 Chronic suprapubic pain COPD (chronic obstructive pulmonary disease) Depression Diabetes mellitus type 2 in obese Essential (primary) hypertension GERD (gastroesophageal reflux disease) Hyperlipidemia Ischemic cardiomyopathy Learning disabilities Memory loss Noncompliance with diabetes treatment Obesity Osteoarthritis Polyarthropathy Rheumatoid arthritis Seasonal allergies STEMI (ST elevation myocardial infarction) (10/10/18) Strep pharyngitis Type 2 diabetes mellitus Urinary incontinence Home Medications aspirin 81 mg tablet,delayed release 81 mg PO DAILY@0800 10/12/18 [Rx Last Taken 09/28/19] meclizine 25 mg tablet 25 mg PO TID PRN PRN Dizziness 07/14/20 [History Last Taken Unknown] calcium carbonate 200 mg calcium (500 mg)-vitamin D3 400 unit tablet 1 tab PO BID 08/26/20 [History Last Taken Unknown] fluticasone 250 mcg-salmeterol 50 mcg/dose blistr powdr for inhalation 1 ea inhalation BID #60 ea 10/22/20 [Rx Last Taken Unknown] polyethylene glycol 3350 17 gram oral powder packet 17 g PO DAILY PRN Constipation 10/30/21 [History Last Taken Unknown] insulin syringe-needle U-100 0.3 mL 31 gauge x 5/16 (BD Insulin Syringe Ultra-Fine) #120 ea 11/24/21 [Rx Last Taken Unknown] flash glucose sensor (FreeStyle To 2 Sensor kit) #2 ea 05/14/22 [Rx Last Taken Unknown] albuterol sulfate 90 mcg/actuation aerosol inhaler (Ventolin HFA) 2 puff inhalation Q6H PRN 07/15/22 [History Last Taken Unknown] folic acid 20 mg capsule 20 mg PO DAILY 07/15/22 [History Last Taken Unknown] methotrexate sodium 2.5 mg tablet 12.5 mg PO QWEEK 07/15/22 [History Last Taken Unknown] omeprazole 40 mg capsule,delayed release 40 mg PO DAILY #90 caps 08/05/22 [Rx Last Taken Unknown] buspirone 10 mg tablet 10 mg PO BID Anxiety #180 tabs 08/07/22 [Rx Last Taken Unknown] duloxetine 30 mg capsule,delayed release 30 mg PO BID #180 caps 08/07/22 [Rx Last Taken Unknown] oxybutynin chloride 10 mg tablet,extended release 24 hr 10 mg PO DAILY #90 tabs 08/07/22 [Rx Last Taken Unknown] trazodone 100 mg tablet 200 mg (2 x 100 mg) PO DAILY #180 tabs 08/07/22 [Rx Last Taken Unknown] nitroglycerin 0.4 mg sublingual tablet 0.4 mg sublingual Q5-15M PRN chest pain #25 tabs 08/12/22 [Rx Last Taken Unknown] alcohol swabs 1 pad topical 4X/DAY #200 ea 08/26/22 [Rx Last Taken Unknown] lancets 28 gauge (Comfort EZ Lancets) #100 ea 09/03/22 [Rx Last Taken Unknown] rosuvastatin 40 mg tablet 40 mg PO DAILY cholestrol #90 tabs 10/12/22 [Rx Last Taken Unknown] anastrozole 1 mg tablet 1 mg PO DAILY #90 tabs 12/22/22 [Rx Last Taken Unknown] carvedilol 6.25 mg tablet 6.25 mg PO BID #180 tabs 12/22/22 [Rx Last Taken Unknown] isosorbide mononitrate 60 mg tablet,extended release 24 hr 60 mg PO DAILY #90 tabs 12/22/22 [Rx Last Taken Unknown] glimepiride 4 mg tablet 4 mg PO BID #60 tabs 01/05/23 [Rx Last Taken Unknown] Novolog U-100 Insulin aspart 100 unit/mL subcutaneous solution (insulin aspart U-100) 20 unit (0.2 mL) subcut TID #20 mL 01/11/23 [Rx Last Taken Unknown] Lantus U-100 Insulin 100 unit/mL subcutaneous solution (insulin glargine) 40 unit (0.4 mL) subcut DAILY #20 mL 02/04/23 [Rx Last Taken Unknown] blood sugar diagnostic (Accu-Chek Guide test strips) #100 ea 02/04/23 [Rx Last Taken Unknown] bupropion HCl 150 mg tablet,12 hr sustained-release (Wellbutrin SR) 150 mg PO DAILY 02/04/23 [History Last Taken Unknown] hydrocodone-acetaminophen 5-325mg 5mg-325mg 1 tab PO Q6H PRN PRN Pain 3 days #12 TABLETS 02/15/23 [Rx Last Taken Unknown] ondansetron 4 mg disintegrating tablet 4 mg PO Q6H PRN nausea and vomiting #12 tabs 02/15/23 [Rx Last Taken Unknown] Allergy/AdvReac Type Severity Reaction Status Date / Time egg Allergy Severe Anaphylaxis Verified 02/04/23 11:17 fish derived Allergy Severe Unknown Verified 02/04/23 11:17 nitrofurantoin Allergy Severe Anaphylaxis Verified 02/04/23 11:17 macrocrystalline [From Macrodantin] calcium carbonate AdvReac Severe unknown Verified 02/04/23 11:17 [From Florical] codeine AdvReac Severe unknown Verified 02/04/23 11:17 oxycodone HCl [From Percocet] AdvReac Severe unknown Verified 02/04/23 11:17 propoxyphene napsylate AdvReac Severe unknown Verified 02/04/23 11:17 [From Darvocet-N 100] sodium fluoride AdvReac Severe unknown Verified 02/04/23 11:17 [From Florical] Sulfa (Sulfonamide AdvReac Severe Hives Verified 02/04/23 11:17 Antibiotics) tamoxifen AdvReac Severe Hives Verified 02/04/23 11:17 dulaglutide [From Trulicity] AdvReac Intermediate Diarrhea Verified 02/04/23 11:18 glimepiride AdvReac Intermediate Diarrhea Verified 02/04/23 11:18 morphine AdvReac Other Verified 02/04/23 11:17 Family History Sister Heart disease Breast cancer Asthma Depression Mother Diabetes Heart disease Breast cancer Arthritis Father Diabetes Heart disease Arthritis Unknown No problems noted. Brother Arthritis Surgical History H/O breast surgery History of coronary artery stent placement (10/10/18) History of hysterectomy History of left heart catheterization (LHC) (03/15/19) Hx of cholecystectomy Social History Smoking Status: Never smoker alcohol intake: never substance use type: does not use caffeine: No what type of physical activity do you participate in: walking, aerobics and weight training ROS ROS ED Constitutional Constitutional ED: Denies chills or fever(s) Eyes Eyes: Denies change in vision or discharge from eye(s) ENT ENT ED: Denies discharge from eye(s), rhinorrhea or sore throat Cardiovascular Cardiovascular: Denies chest pain or palpitations Respiratory/Chest Respiratory/Chest: Denies cough or dyspnea Gastrointestinal Gastrointestinal: Denies abdominal pain, nausea or vomiting Genitourinary Genitourinary ED: Denies dysuria Musculoskeletal Musculoskeletal: Reports extremity pain; Denies back pain Integumentary Denies Abrasions or rash Neurologic Neurologic: Denies headache(s), paresthesias or weakness Psychiatric Psychiatric: Denies anxiety or depression Allergic/Immunologic Allergic/Immunologic ED: Denies lip swelling or urticaria EXAM Physical Exam Const Vital Signs: 02/15/23 09:15 Temperature 97.7 F L Temperature Source Temporal Pulse Rate 64 Respiratory Rate 18 Blood Pressure 155/92 H Blood Pressure Mean 113 Pulse Ox 96 Oxygen Delivery Method Room Air Positive well nourished and well developed General Appearance ED: well developed HEENT Reports normocephalic and head/scalp atraumatic Eyes PERRL and EOMs intact bilaterally Neck supple Chest Wall inspection of chest normal and palpation of chest normal Resp normal respiratory effort and clear to auscultation bilaterally Cardio regular rate and regular rhythm GI non-tender Palpation: soft Extremity Extremity Narrative: Deformity to the left wrist. No tenderness at the left shoulder or elbow. Able to wiggle fingers on the left with good cap refill and sensation distally. No open wounds noted. Neuro oriented x3 and no sensory deficits noted Sensorium / Orientation: alert Psych mental status grossly normal Skin no rashes or lesions noted MDM MDM MDM Narrative Medical decision making narrative: Patient given p.o. [place] along with Zofran. Left wrist x-rays obtained. Radiography Diagnostic Testing: Radiology Impression Wrist X-Ray 02/15/23 09:35 IMPRESSION: Acute, comminuted, multi fragmented, displaced, osteochondral fracture of the distal radius with extensive soft tissue swelling. The distal fracture fragment of the radius is displaced dorsally by one width of the radius with approximately 2 cm of overlap. The carpal bones maintain anatomic alignment with the distal fracture fragment of the radius. Positive ulnar variance with associated minimally displaced ulnar styloid fracture Orthopedic surgery consultation recommended Electronically Signed: Florencio Montoya MD at 9:52 EDT , Treatment and Re-Evaluation Narrative: Left wrist x-rays per my interpretation reveal distal radius fracture with 100% displacement. X-rays are reviewed with the patient. Hematoma block is performed with a 50/50 mix of Marcaine and lidocaine. Left wrist was reduced and placed in an AP Ortho-Glass splint. Following splint application she has good cap refill distally and can wiggle fingers. Postreduction left wrist x-rays are obtained. Per my interpretation alignment is significantly improved. Patient be given a sling and prescription for [place] and Zofran. She will follow-up with Dr. Mims who she has seen in the past. Discharge Plan Triage Chief Complaint: Upper Extremity Injury ED Provider: Renae Marinelli Dx/Rx/DC Orders Clinical Impression: Left wrist fracture Instructions: ED Fracture, Wrist, General Prescriptions: New hydrocodone-acetaminophen 5-325 mg tablet 1 tab PO Q6H PRN PRN (Reason: Pain) 3 Days Qty: 12 0RF ondansetron 4 mg tablet,disintegrating 4 mg PO Q6H PRN (Reason: nausea and vomiting) Qty: 12 0RF No Action calcium carbonate 200 mg calcium (500 mg)-vitamin D3 400 unit tablet 200 mg (500 mg) -400 unit tablet 1 tab PO BID fluticasone propion-salmeterol 250-50 mcg/dose blister with device 1 ea INHALATION BID Qty: 60 3RF (DME) insulin syringe-needle U-100 [BD Insulin Syringe Ultra-Fine] 0.3 mL 31 gauge x 5/16 syringe See Rx Instructions .ROUTE .MEDSUPPLY Qty: 120 8RF Rx Instructions: 4 times daily (DME) FreeStyle To 2 Sensor Kit See Rx Instructions .Route Qty: 2 6RF Rx Instructions: As directed albuterol sulfate [Ventolin HFA] 90 mcg/actuation HFA aerosol inhaler 2 puff inhalation Q6H PRN methotrexate sodium 2.5 mg tablet 12.5 mg PO QWEEK Rx Instructions: TAKE 5 TABS EVERY WEDNESDAY folic acid 20 mg capsule 20 mg PO DAILY bupropion HCl [Wellbutrin SR] 150 mg tablet sustained-release 12 hr 150 mg PO DAILY insulin glargine [Lantus U-100 Insulin] 100 unit/mL solution 40 unit subcut DAILY Qty: 20 6RF (DME) Accu-Chek Guide test strips Strip See Rx Instructions .Route Qty: 100 12RF Rx Instructions: bid polyethylene glycol 3350 17 gram powder in packet 17 g PO DAILY PRN (Reason: Constipation) aspirin 81 MG tablet 81 mg PO DAILY@0800 0RF meclizine 25 MG tablet 25 mg PO TID PRN PRN (Reason: Dizziness) omeprazole 40 mg capsule,delayed release(DR/EC) 40 mg PO DAILY Qty: 90 1RF trazodone 100 mg tablet 200 mg PO DAILY Qty: 180 1RF buspirone 10 mg tablet 10 mg PO BID Qty: 180 1RF oxybutynin chloride 10 mg tablet extended release 24hr 10 mg PO DAILY Qty: 90 1RF duloxetine 30 mg capsule,delayed release(DR/EC) 30 mg PO BID Qty: 180 1RF nitroglycerin 0.4 mg tablet, sublingual 0.4 mg SUBLINGUAL Q5-15M PRN (Reason: chest pain) Qty: 25 5RF Rx Instructions: until response; do not exceed 3 doses per episode alcohol swabs Pads, Medicated 1 pad topical 4X/DAY Qty: 200 3RF (DME) lancets [Comfort EZ Lancets] 28 gauge misc See Rx Instructions .Route Qty: 100 5RF Rx Instructions: 4x/day rosuvastatin 40 mg tablet 40 mg PO DAILY Qty: 90 3RF anastrozole 1 mg tablet 1 mg PO DAILY Qty: 90 3RF carvedilol 6.25 mg tablet 6.25 mg PO BID Qty: 180 3RF isosorbide mononitrate 60 mg tablet extended release 24 hr 60 mg PO DAILY Qty: 90 3RF glimepiride 4 mg tablet 4 mg PO BID Qty: 60 3RF insulin aspart U-100 [Novolog U-100 Insulin aspart] 100 unit/mL solution 20 unit subcut TID Qty: 20 6RF Primary Care Provider: Felicita Hill Referrals: Alek Mims DO [Med Staff - Active Staff] - 3-5 Days Felicita Hill DO [Primary Care Provider] - Disposition Disposition: Home, Self Care
[2023-02-15] MEDS: HYDROcodone Bitartrate/Apap 5/325 Tablet PO (09:30)
[2023-02-15] MEDS: Ondansetron ODT 4 MG Tablet PO (09:31)
--- NOTE | 2023-02-15 09:35 | RAD_ITS ---
STUDY: X-RAY - LEFT WRIST REASON FOR EXAM: Female, 62 years old. Acute pain after trauma TECHNIQUE: 3 view(s) of the wrist were obtained. COMPARISON: No recent studies, 04/22/2022 FINDINGS: There is an acute, multi fragmented, displaced, osteochondral, fracture of the distal radius with associated soft tissue swelling. There is also minimally displaced ulnar styloid fracture. The carpal bones maintain anatomic alignment with the distal radial fracture fragment. However, the distal radial fracture fragment is displaced dorsally by one width of the radius and there is approximately 2 cm of overlap between the distal fracture fragment of the radius and the radial shaft. Additionally, there is positive ulnar variance. No demonstrated carpal or metacarpal fracture. The intercarpal joint spaces are well-preserved. RAD/Wrist min 3 Views IMPRESSION: Acute, comminuted, multi fragmented, displaced, osteochondral fracture of the distal radius with extensive soft tissue swelling. The distal fracture fragment of the radius is displaced dorsally by one width of the radius with approximately 2 cm of overlap. The carpal bones maintain anatomic alignment with the distal fracture fragment of the radius. Positive ulnar variance with associated minimally displaced ulnar styloid fracture Orthopedic surgery consultation recommended Electronically Signed: Florencio Montoya MD at 9:52 EDT ,
[2023-02-15] MEDS: Lidocaine 1% (20 ml mdv) 20 ML Vial INFILT (10:06)
[2023-02-15] MEDS: Bupivacaine Mpf 0.5% 30 ML VIAL INFILT (10:07)
--- NOTE | 2023-02-15 10:50 | RAD_ITS ---
INDICATION: post reduction EXAMINATION/TECHNIQUE: X-RAY - LEFT XR Wrist 2 Views 2 VIEWS COMPARISON: Earlier the same day FINDINGS: SOFT TISSUES: No soft tissue swelling or gas. No radiopaque foreign body. BONES/JOINTS: There is an acute comminuted fracture of the distal radius. There is an avulsion fracture of the ulnar styloid. There has been interval improvement in the displacement of the distal radius bone fragment.. Preservation of the joint space.. No sclerotic or destructive changes observed. RAD/Wrist 2 Views IMPRESSION: Interval reduction of comminuted distal radius fracture with improved alignment and decreased displacement. Ulnar styloid avulsion fracture appears unchanged. Electronically Signed: Tristan Weston, at 11:11 EDT ,
== END 2023-02-15 11:24 | disposition home or self-care (01) ==
PROVIDERS: Emergency Provider Emergency Medicine; PCP Family Medicine; Visit Provider Emergency Medicine
DX: S52.502A Unspecified fracture of the lower end of left radius, initial encounter for closed fracture (principal); J44.9 Chronic obstructive pulmonary disease, unspecified; E11.22 Type 2 diabetes mellitus with diabetic chronic kidney disease; N18.30 Chronic kidney disease, stage 3 unspecified; E78.5 Hyperlipidemia, unspecified; I25.10 Atherosclerotic heart disease of native coronary artery without angina pectoris; I12.9 Hypertensive chronic kidney disease with stage 1 through stage 4 chronic kidney disease, or unspecified chronic kidney disease; Z79.82 Long term (current) use of aspirin; W01.0XXA Fall on same level from slipping, tripping and stumbling without subsequent striking against object, initial encounter
CPT/HCPCS: 25675; 29125; 73100; 73110; 99284

== ENCOUNTER → 2023-02-16 | Outpatient (CLI) | payer MEDICARE, SELFPAY ==
[2023-01-05 11:47] VITALS: BMI 35.9
== END | disposition home or self-care (01) ==
LOC: LABSPEC 12:38
PROVIDERS: PCP Family Medicine; Referring Provider Family Medicine; Visit Provider Family Medicine
DX: N39.41 Urge incontinence (principal)
CPT/HCPCS: 87077; 87086; 87088; 87186

== ENCOUNTER 2023-02-23 12:11 | Day surgery (SDC) | payer MEDICARE, SELFPAY ==
[2023-01-05 11:47] VITALS: BMI 35.9
[2023-02-23] VITALS (9 sets, daily range): BP systolic 149–197; BP diastolic 78–103; PULSE 70–79; RESP 16; TEMP 36.4–37.1; O2SAT 93–98; BMI 35.6
--- NOTE | 2023-02-23 12:51 | PCM.HP.BLA ---
History and Physical Date of Admission: 02/23/23 [facility] [address] [place] [address] OFFICE VISIT Date of Service: 02/19/23 MR#: [id number] Acct: [id number] Name: ANGEL ALMODOVAR Rep #: [id number] : 1960 Provider: TATIANA Fernandes Age/Sex: 62/F [place] [facility] [place] [facility] [place]: Signed Intake Vital Signs 02/15/2309:15 02/19/2309:50 Height 4 ft 9 in Weight: 165 lb Intake Visit Reasons: LEFT WRIST Chief Complaint: left wrist pain Is patient in pain?: Yes (left wrist ) Pain scale (1-10): 8 Allergies egg Allergy (Severe, Verified 02/19/23 12:08) Anaphylaxisfish derived Allergy (Severe, Verified 02/19/23 12:08) Unknownnitrofurantoin macrocrystalline [From Macrodantin] Allergy (Severe, Verified 02/19/23 12:08) Anaphylaxiscalcium carbonate [From Florical] Adverse Reaction (Severe, Verified 02/19/23 12:08) unknown codeine Adverse Reaction (Severe, Verified 02/19/23 12:08) unknown oxycodone HCl [From Percocet] Adverse Reaction (Severe, Verified 02/19/23 12:08) unknown propoxyphene napsylate [From Darvocet-N 100] Adverse Reaction (Severe, Verified 02/19/23 12:08) unknown sodium fluoride [From Florical] Adverse Reaction (Severe, Verified 02/19/23 12:08) unknown Sulfa (Sulfonamide Antibiotics) Adverse Reaction (Severe, Verified 02/19/23 12:08) Hivestamoxifen Adverse Reaction (Severe, Verified 02/19/23 12:08) Hivesdulaglutide [From Trulicity] Adverse Reaction (Intermediate, Verified 02/19/23 12:08) Diarrheaglimepiride Adverse Reaction (Intermediate, Verified 02/19/23 12:08) Diarrheamorphine Adverse Reaction (Verified 02/19/23 12:08) Other Medications aspirin 81 mg tablet,delayed release 81 mg PO DAILY@0800 10/12/18 [Rx Confirmed 02/19/23] meclizine 25 mg tablet 25 mg PO TID PRN PRN Dizziness 07/14/20 [History Confirmed 02/19/23] calcium carbonate 200 mg calcium (500 mg)-vitamin D3 400 unit tablet 1 tab PO BID 08/26/20 [History Confirmed 02/19/23] insulin syringe-needle U-100 0.3 mL 31 gauge x 5/16 (BD Insulin Syringe Ultra-Fine) #120 ea 11/24/21 [Rx Confirmed 10/13/22] flash glucose sensor (FreeStyle To 2 Sensor kit) #2 ea 05/14/22 [Rx Confirmed 10/13/22] albuterol sulfate 90 mcg/actuation aerosol inhaler (Ventolin HFA) 2 puff inhalation Q6H PRN shortness of breath or wheezing 07/15/22 [History Confirmed 02/19/23] omeprazole 40 mg capsule,delayed release 40 mg PO DAILY #90 caps 08/05/22 [Rx Confirmed 02/19/23] duloxetine 30 mg capsule,delayed release 30 mg PO BID #180 caps 08/07/22 [Rx Confirmed 02/19/23] oxybutynin chloride 10 mg tablet,extended release 24 hr 10 mg PO DAILY #90 tabs 08/07/22 [Rx Confirmed 02/19/23] nitroglycerin 0.4 mg sublingual tablet 0.4 mg sublingual Q5-15M PRN chest pain #25 tabs 08/12/22 [Rx Confirmed 02/19/23] lancets 28 gauge (Comfort EZ Lancets) #100 ea 09/03/22 [Rx Confirmed 10/13/22] rosuvastatin 40 mg tablet 40 mg PO DAILY cholestrol #90 tabs 10/12/22 [Rx Confirmed 02/19/23] anastrozole 1 mg tablet 1 mg PO DAILY #90 tabs 12/22/22 [Rx Confirmed 02/19/23] carvedilol 6.25 mg tablet 6.25 mg PO BID #180 tabs 12/22/22 [Rx Confirmed 02/19/23] isosorbide mononitrate 60 mg tablet,extended release 24 hr 60 mg PO DAILY #90 tabs 12/22/22 [Rx Confirmed 02/19/23] Novolog U-100 Insulin aspart 100 unit/mL subcutaneous solution (insulin aspart U-100) 20 unit (0.2 mL) subcut TID #20 mL 01/11/23 [Rx Confirmed 02/19/23] blood sugar diagnostic (Accu-Chek Guide test strips) #100 ea 02/04/23 [Rx Confirmed 02/04/23] bupropion HCl 150 mg tablet,12 hr sustained-release (Wellbutrin SR) 150 mg PO BID 02/04/23 [History Confirmed 02/19/23] ondansetron 4 mg disintegrating tablet 4 mg PO Q6H PRN nausea and vomiting #12 tabs 02/15/23 [Rx Confirmed 02/19/23] fluticasone 250 mcg-salmeterol 50 mcg/dose blistr powdr for inhalation 1 ea inhalation BID PRN shortness of breath or wheezing 02/19/23 [History Confirmed 02/19/23] hydrocodone-acetaminophen 5-325mg 5mg-325mg 1 tab PO Q6H PRN PRN Pain 4 days #16 TABLETS 02/19/23 [Rx Confirmed 02/19/23] insulin glargine 100 unit/mL subcutaneous solution (Lantus U-100 Insulin) 40 unit subcut QHS 02/19/23 [History Confirmed 02/19/23] trazodone 100 mg tablet 200 mg PO QHS 02/19/23 [History Confirmed 02/19/23] PFSH Medical History (Updated 02/19/23 @ 12:27 by Melissa Sanders) Abnormal mammogram Anxiety Asthma Atherosclerosis of coronary artery of [place] heart without angina pectoris Bilateral hip pain Bilateral knee pain Cancer Cardiology follow-up encounter Cast in place on extremity Chronic suprapubic pain COPD (chronic obstructive pulmonary disease) Depression Depression Diabetes mellitus type 2 in obese Dietary restriction Essential (primary) hypertension Fibromyalgia GERD (gastroesophageal reflux disease) High cholesterol History of edema History of heart attack History of Holter monitoring History of stress test Hyperlipidemia Insulin dependent diabetes mellitus Ischemic cardiomyopathy Learning disabilities Memory loss Noncompliance with diabetes treatment Obesity Open wound Osteoarthritis Polyarthropathy Rheumatoid arthritis STEMI (ST elevation myocardial infarction) (10/10/18) Strep pharyngitis Syncope Type 2 diabetes mellitus Urinary incontinence Wears glasses Wears hearing aid Surgical History (Updated 02/19/23 @ 12:24 by Melissa Sanders) H/O breast surgery History of coronary artery stent placement (10/10/18) History of hysterectomy History of left heart catheterization (LHC) (03/15/19) History of lumpectomy of left breast Hx of cholecystectomy Family History Sister Heart disease Breast cancer Asthma DepressionMother Diabetes Heart disease Breast cancer ArthritisFather Diabetes Heart disease ArthritisUnknown No problems noted. Brother Arthritis Social History Smoking Status: Never smoker alcohol intake: never substance use type: does not use caffeine: No what type of physical activity do you participate in: walking, aerobics and weight training HPI LEFT WRIST Chief Complaint: left wrist pain Details: Parts of this documentation were recorded by a scribe, this documentation accurately reflects the service provided and the decisions made by me, TATIANA Fernandes 02/19/23 3002. ANGEL ALMODOVAR is a 62 year old F here today for follow up from ED visit regarding a left wrist fracture. DOI: 02/15/2023. LORNA: SAURABH, states that she slipped and fell over a dog bone. She presents with her left arm in a sling and in a short arm fabricated splint. Her pain today is an 8/10. She points to her pain being over her left wrist generally. She states that she has swelling and bruising of her left wrist and hand. Denies any numbness or tingling into the left extremity. She is taking hydrocodone for pain as needed. She has also been elevating and resting her left upper extremity. Denies icing. Denies prior injury or surgery to the left upper extremity. Her past medical history is significant for STEMI (10/10/2018), coronary artery stent placement (takes 81 mg of aspirin daily, not on any other form of anticoagulation currently), rheumatoid arthritis, breast cancer (partial mastectomy November 2018, followed by adjuvant radiation and has been on adjuvant hormonal therapy since), diabetes mellitus type II (sugars are not well controlled), obesity (BMI 35.7), asthma, osteopenia, and hypertension. ROS Const Denies chills and Denies fever(s) Card Denies dyspnea Resp Denies dyspnea GI Denies nausea and Denies vomiting Musc Reports arthralgias, Reports joint swelling and Reports limited range of motion Skin/Breast Denies rash Ortho Exam General General: Yes no acute distress Neurologic: Yes alert and Yes oriented x3 Psychologic: Yes reasonable and appropriate Right Wrist/Hand Skin/Wound: Yes Swelling and Yes Ecchymosis Left Wrist/Hand Date of injury: 02/15/23 Skin/Wound: Yes Swelling, Yes Ecchymosis, Yes nail intact and No erythema Contralateral Normal: Yes Left Wrist: Yes TTP Fracture site; No ROM-Extension 0-60, No ROM-Flexion 0-80, No ROM-Pronation 0-80 and No ROM-Supination 0-90 Sensation: Radial: I and Ulnar: I WRIST: Patient presents to the office in a fabricated splint. Upon removal of the splint there is some evident generalized swelling and ecchymosis of the left hand and wrist. Patient is extremely tender with palpation anywhere of the left hand/wrist. Neurologically intact. Palpable radial pulse. Able to wiggle fingers. No open areas on the skin. 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 Wrist min 3 Views Today S62.102A - Fracture of unspecified carpal bone, left wrist, initial encounter for closed fracture Medications: Changed From hydrocodone-acetaminophen 5-325 mg 1 TAB PO Q6H PRN 3 days PRN 12 TABLETS 0RF Pain S62.102A - Fracture of unspecified carpal bone, left wrist, initial encounter for closed fracture To hydrocodone-acetaminophen 5-325 mg 1 TAB PO Q6H PRN 4 days PRN 16 TABLETS 0RF Pain S62.102A - Fracture of unspecified carpal bone, left wrist, initial encounter for closed fracture Plan Patient presents to the office today for follow up from the ED regarding left distal radius fracture. DOI: 02/15/2023. LORNA: SAURABH. Reviewed ED documentation and x-rays. Discussed the initial x-rays and post reduction x-rays. Discussed the fracture that is seen and to the treatment options which include left distal radius open reduction internal fixation versus left distal radius closed reduction and casting. Discussed at length the difference between the options and the risks, benefits and alternatives of open versus closed reduction. Including risk of bleeding, infection, nerve artery or tissue damage, need for further surgery, continued pain, blood loss, blood clot, infection, failure of the procedure, loss of limb or life from anesthesia as well as stiffness and arthritis. Patient's A1c and sugars have been high recently. She was changed to Trulicity approximately 2 weeks ago and states that her sugars have been better. Discussed with the patient a high A1c puts her at increased risk of infection. Will order a stat A1c today. After this patient will decide which procedure she would like to have on 02/23/23. Today her splint was removed and it was decided that she could be placed into a short arm cast. Short arm cast was placed without any concerns. Discussed cast rules with the patient and she verbalized understanding. Post casting x-rays were taken and reviewed with the patient today. Discussed with the patient that our office will reach out to the patient on Wednesday with the results of her A1c and to discuss surgical options further and answer any questions she has. More pain medication was sent into the patient's pharmacy. She should continue to rest her left upper extremity and elevate her hand throughout the weekend to help with the swelling. She will follow-up 1 to 2 weeks postoperatively depending on the intraoperative findings or sooner if pain, swelling, numbness, tingling or other associated signs or symptoms develop. All the patient's questions were answered. Patient is in agreement of the plan. 02/19/23 1553 <Electronically signed by Bella SIMPSON> Date Bella SIMPSON Cosigner Signature: Date (if applicable) CC: ~ I have examined the patient the following changes are noted: Thorough discussion was had with the patient and her family, in regards to her fracture recommended treatment is open reduction internal fixation however her diabetes is not well under controlled we did recheck an A1c which was over 10 and she has had high sugar monitoring recently. This does put her at increased risk of infection and she did not wish to proceed with open reduction internal fixation and opted to proceed with an attempted closed reduction and casting. Risk benefits alternatives of both were thoroughly explained to the patient including risk of stiffness loss of reduction continued pain decreased function. Was signed and placed on the chart all questions were answered.
[2023-02-23] MEDS: Lactated Ringers 1,000 ML 15 ML IV (13:00)
--- NOTE | 2023-02-23 13:00 | RAD_ITS ---
INDICATION: FX EXAMINATION/TECHNIQUE: X-RAY - LEFT XR Wrist 2 Views 4 VIEWS COMPARISON: 02/19/2023. FINDINGS: Intraoperative images were obtained, limited. Patient is casted in fiberglass. Distal radius and ulnar styloid fractures. Alignment is anatomic. RAD/Wrist 2 Views IMPRESSION: Limited intraoperative images. Anatomic alignment. Electronically Signed: Jessica Morris MD at 23:55 EDT Reading Location ID and State: [id number] / Tel , Service support ,
[2023-02-23] MEDS: Ketorolac 15 MG/ML Vial IV (14:01)
--- NOTE | 2023-02-23 14:06 | PCM.OP.BLANK ---
Operative Report Date of Procedure: 02/23/23 In the preoperative diagnosis: Left distal radius extra-articular fracture displaced ulnar styloid base fracture Postoperative diagnosis: Same Procedure: Closed reduction and casting left distal radius and ulna Anesthesia: LMA general Complications: None Condition: stable to PACU Indication for procedure: 62-year-old female patient who sustained a distal radius fracture that was significantly dorsally displaced and was closed reduced in the emergency room, followed my office fracture, Pattern warranted open reduction internal fixation as optimal treatment however patient is an uncontrolled diabetic and had a recent A1c of 10 , which increases her risk of infection she therefore wished to proceed with closed reduction and casting only , for the purpose to attempt to better align the fracture and hold it from further dorsal displacement . She thoroughly understood after extensive conversation about the risk benefits and alternatives of surgical versus nonsurgical options of ORIF versus reduction and casting . She understands that the fracture can continue to move in the cast and could result in residual displacement and shortening which could further impact her function and stiffness and chronic pain of the wrist . Procedure: Patient was met in the preoperative holding area once again the operative extremity was identified by both patient and physician was marked. Patient was brought back to the operating room transferred to the operative table supine position anesthesia was started her cast that was on was removed. She was held with finger traction prior to being brought back to the operating room this was removed. A close reduction was performed and a well molded cast was held until the cast had hardened postreduction images were saved to the PACS system showing improved alignment of the fracture. She was brought back to the PACU in stable condition she will ice and elevate strictly over the next week she will follow-up in the office in 2 weeks.
--- NOTE | 2023-02-23 14:13 | DCINST_ITS ---
Discharge Instructions Diet Discharge Diet: 1999 Calorie Control Diet Activity Keep extremity elevated above heart level: Operative Extremity Dressing / Incision Call your doctor if you observe: Shortness of breath, Chest pain and - Additional Dressing/Incision Instructions:: Strict ice and elevation over the next 2 weeks. Absolutely no lifting pushing or pulling with the operative extremity. Courage finger range of motion. Do not stick anything inside of your cast. Do not take pain medication outside of what is prescribed by your physician. May supplement pain medication with OTC ibuprofen and OTC Tylenol to minimize narcotic use. Narcotic pain medication can be addictive minimize use to what is needed only. Do not mix with alcohol. Follow Up Care Please Follow Up With: Alek Mims DO When: 1 week Test Results: Test results from this visit will be discussed in further detail at your follow- up appointment, if applicable. Discharge Plan Admission Primary Reason for Your Visit: Left distal radius fracture Attending Provider: Alek Mims Primary Care Provider: Felicita Hill Discharge Orders/Prescriptions Prescriptions: New oxycodone 5 mg tablet 5 - 10 mg PO Q4H PRN (Reason: pain) 5 Days Qty: 30 0RF No Action calcium carbonate 200 mg calcium (500 mg)-vitamin D3 400 unit tablet 200 mg (500 mg) -400 unit tablet 1 tab PO BID (DME) insulin syringe-needle U-100 [BD Insulin Syringe Ultra-Fine] 0.3 mL 31 gauge x 5/16 syringe See Rx Instructions .ROUTE .MEDSUPPLY Qty: 120 8RF Rx Instructions: 4 times daily (DME) FreeStyle To 2 Sensor Kit See Rx Instructions .Route Qty: 2 6RF Rx Instructions: As directed albuterol sulfate [Ventolin HFA] 90 mcg/actuation HFA aerosol inhaler 2 puff inhalation Q6H PRN (Reason: shortness of breath or wheezing) bupropion HCl [Wellbutrin SR] 150 mg tablet sustained-release 12 hr 150 mg PO BID (DME) Accu-Chek Guide test strips Strip See Rx Instructions .Route Qty: 100 12RF Rx Instructions: bid aspirin 81 MG tablet 81 mg PO DAILY@0800 0RF meclizine 25 MG tablet 25 mg PO TID PRN PRN (Reason: Dizziness) ondansetron 4 mg tablet,disintegrating 4 mg PO Q6H PRN (Reason: nausea and vomiting) Qty: 12 0RF fluticasone propion-salmeterol 250-50 mcg/dose blister with device 1 ea INHALATION BID PRN (Reason: shortness of breath or wheezing) insulin glargine [Lantus U-100 Insulin] 100 unit/mL solution 40 unit subcut QHS trazodone 100 mg tablet 200 mg PO QHS omeprazole 40 mg capsule,delayed release(DR/EC) 40 mg PO DAILY Qty: 90 1RF oxybutynin chloride 10 mg tablet extended release 24hr 10 mg PO DAILY Qty: 90 1RF duloxetine 30 mg capsule,delayed release(DR/EC) 30 mg PO BID Qty: 180 1RF nitroglycerin 0.4 mg tablet, sublingual 0.4 mg SUBLINGUAL Q5-15M PRN (Reason: chest pain) Qty: 25 5RF Rx Instructions: until response; do not exceed 3 doses per episode (DME) lancets [Comfort EZ Lancets] 28 gauge misc See Rx Instructions .Route Qty: 100 5RF Rx Instructions: 4x/day rosuvastatin 40 mg tablet 40 mg PO DAILY Qty: 90 3RF anastrozole 1 mg tablet 1 mg PO DAILY Qty: 90 3RF carvedilol 6.25 mg tablet 6.25 mg PO BID Qty: 180 3RF isosorbide mononitrate 60 mg tablet extended release 24 hr 60 mg PO DAILY Qty: 90 3RF insulin aspart U-100 [Novolog U-100 Insulin aspart] 100 unit/mL solution 20 unit subcut TID Qty: 20 6RF Referrals / Follow Up: Felicita Hill DO [Primary Care Provider] - Disposition Disposition (needs filled in before D/C Order can be placed): Home, Self Care
[2023-02-23 14:27] LABS: Bedside Glucose 117 mg/dL (74-106)
== END 2023-02-23 16:39 | disposition home or self-care (01) ==
LOC: SDC 12:12 → AC 12:15
PROVIDERS: PCP Family Medicine; Referring Provider Orthopaedic Surgery; Visit Provider Orthopaedic Surgery
PROC: (CPT 25605; principal; 2023-02-23 13:45)
DX: S52.552A Other extraarticular fracture of lower end of left radius, initial encounter for closed fracture (principal); M06.9 Rheumatoid arthritis, unspecified; J44.9 Chronic obstructive pulmonary disease, unspecified; E11.65 Type 2 diabetes mellitus with hyperglycemia; Z79.4 Long term (current) use of insulin; S52.612A Displaced fracture of left ulna styloid process, initial encounter for closed fracture; W01.0XXA Fall on same level from slipping, tripping and stumbling without subsequent striking against object, initial encounter; I25.5 Ischemic cardiomyopathy; I25.10 Atherosclerotic heart disease of native coronary artery without angina pectoris; I10 Essential (primary) hypertension; E78.00 Pure hypercholesterolemia, unspecified; Z79.82 Long term (current) use of aspirin; Z79.899 Other long term (current) drug therapy; I25.2 Old myocardial infarction; Z95.5 Presence of coronary angioplasty implant and graft
CPT/HCPCS: 25605; 73100; 76000; 82962; J7120; J2405

== ENCOUNTER 2023-05-11 17:17 | Observation (INO) | payer MEDICARE, SELFPAY ==
[2023-01-05 11:47] VITALS: BMI 35.9
[2023-05-11 17:18] VITALS: BP 144/87; PULSE 87; RESP 18; TEMP 36.5; O2SAT 99; BMI 35.4
--- NOTE | 2023-05-11 18:16 | CT_ITS ---
STUDY: CT ABDOMEN AND PELVIS WITH CONTRAST REASON FOR EXAM: Female, 63 years old. abd pain, GI bleed RADIATION DOSAGE (If Supplied By Facility): CTDIvol = ( 18.91 ) mGy, DLP = ( 817.87 ) mGycm TECHNIQUE: Transaxial images were obtained from the dome of the diaphragm to the symphysis pubis without oral contrast. IV 100mL Isovue-370 was administered. Sagittal and coronal images were reconstructed. Individualized dose optimization techniques were used for this CT. COMPARISON: None. FINDINGS: Mild bilateral lower lobe atelectasis. Normal cardiac size. Normal liver. There are surgical clips in the gallbladder fossa consistent with a prior cholecystectomy. Spleen measures 13.4 cm consistent with borderline splenomegaly. Otherwise normal spleen. Nonvisualization of the pancreatic tail suggestive of congenital shortening versus atrophy. Otherwise normal pancreas. Normal bilateral adrenal glands. Normal right kidney. Normal left kidney. Normal visualized stomach. Normal small intestine. Diffuse thickening of the wall throughout the descending colon and sigmoid including rectosigmoid junction consistent with left-sided colitis. There is non-visualization of the appendix. There is mild atherosclerotic calcification of the abdominal aorta, without a demonstrated aneurysm. Normal inferior vena cava. Normal retroperitoneum. Normal urinary bladder. There is absence of the uterus consistent with a prior hysterectomy. Normal abdominal wall. There are diffuse degenerative changes of the visualized lumbar spine. CT/Abdomen/Pelvis W IV Cont ONLY IMPRESSION: Descending colitis. No bowel obstruction. Nonvisualized appendix with no secondary signs of acute appendicitis. Status post cholecystectomy, otherwise unremarkable abdominal viscera. Electronically Signed: Nydia Reilly MD at 19:56 EDT ,
--- NOTE | 2023-05-11 18:20 | EX.ED.DYSGE1 ---
HPI History of Present Illness Chief Complaint: GI Bleed Informant: patient Onset/Context/Timing Onset: Yesterday Narrative Narrative: Patient presents secondary to abdominal pain and rectal bleeding. She states yesterday she went to a local restaurant. She can even eat because she developed abdominal cramping and had dark tarry stools. She states today her pain is improved but she continues to have dark tarry stools. She denies ever having a colonoscopy. No history of ulcers. She takes aspirin daily but no other form of anticoagulant. [facility] Medical History Abnormal mammogram Anxiety Asthma Atherosclerosis of coronary artery of [place] heart without angina pectoris Bilateral hip pain Bilateral knee pain Cancer Cardiology follow-up encounter Cast in place on extremity Chronic suprapubic pain COPD (chronic obstructive pulmonary disease) Depression Depression Diabetes mellitus type 2 in obese Dietary restriction Essential (primary) hypertension Fibromyalgia GERD (gastroesophageal reflux disease) High cholesterol History of edema History of heart attack History of Holter monitoring History of stress test Hyperlipidemia Insulin dependent diabetes mellitus Ischemic cardiomyopathy Learning disabilities Memory loss Noncompliance with diabetes treatment Obesity Open wound Osteoarthritis Polyarthropathy Rheumatoid arthritis STEMI (ST elevation myocardial infarction) (10/10/18) Strep pharyngitis Syncope Type 2 diabetes mellitus Urinary incontinence Wears glasses Wears hearing aid Home Medications aspirin 81 mg tablet,delayed release 81 mg PO DAILY@0800 10/12/18 [Rx Last Taken 09/28/19] meclizine 25 mg tablet 25 mg PO TID PRN PRN Dizziness 07/14/20 [History Last Taken Unknown] calcium carbonate 200 mg calcium (500 mg)-vitamin D3 400 unit tablet 1 tab PO BID 08/26/20 [History Last Taken Unknown] insulin syringe-needle U-100 0.3 mL 31 gauge x 5/16 (BD Insulin Syringe Ultra-Fine) #120 ea 11/24/21 [Rx Last Taken Unknown] flash glucose sensor (FreeStyle To 2 Sensor kit) #2 ea 05/14/22 [Rx Last Taken Unknown] albuterol sulfate 90 mcg/actuation aerosol inhaler (Ventolin HFA) 2 puff inhalation Q6H PRN shortness of breath or wheezing 07/15/22 [History Last Taken Unknown] omeprazole 40 mg capsule,delayed release 40 mg PO DAILY #90 caps 08/05/22 [Rx Last Taken Unknown] duloxetine 30 mg capsule,delayed release 30 mg PO BID #180 caps 08/07/22 [Rx Last Taken Unknown] oxybutynin chloride 10 mg tablet,extended release 24 hr 10 mg PO DAILY #90 tabs 08/07/22 [Rx Last Taken Unknown] nitroglycerin 0.4 mg sublingual tablet 0.4 mg sublingual Q5-15M PRN chest pain #25 tabs 08/12/22 [Rx Last Taken Unknown] lancets 28 gauge (Comfort EZ Lancets) #100 ea 09/03/22 [Rx Last Taken Unknown] rosuvastatin 40 mg tablet 40 mg PO DAILY cholestrol #90 tabs 10/12/22 [Rx Last Taken Unknown] anastrozole 1 mg tablet 1 mg PO DAILY #90 tabs 12/22/22 [Rx Last Taken Unknown] carvedilol 6.25 mg tablet 6.25 mg PO BID #180 tabs 12/22/22 [Rx Last Taken Unknown] bupropion HCl 150 mg tablet,12 hr sustained-release (Wellbutrin SR) 150 mg PO BID 02/04/23 [History Last Taken Unknown] ondansetron 4 mg disintegrating tablet 4 mg PO Q6H PRN nausea and vomiting #12 tabs 02/15/23 [Rx Last Taken Unknown] fluticasone 250 mcg-salmeterol 50 mcg/dose blistr powdr for inhalation 1 ea inhalation BID PRN shortness of breath or wheezing 02/19/23 [History Last Taken Unknown] trazodone 100 mg tablet 200 mg PO QHS 02/19/23 [History Last Taken Unknown] Novolog U-100 Insulin aspart 100 unit/mL subcutaneous solution (insulin aspart U-100) 20 unit (0.2 mL) subcut TID #20 mL 03/15/23 [Rx Last Taken Unknown] blood sugar diagnostic (Accu-Chek Guide test strips) #100 ea 03/15/23 [Rx Last Taken Unknown] oxycodone 5 mg tablet 5 mg PO Q6H PRN pain 5 days #20 tabs 03/31/23 [Rx Last Taken Unknown] isosorbide mononitrate 60 mg tablet,extended release 24 hr 60 mg PO DAILY #90 tabs 05/04/23 [Rx Last Taken Unknown] Lantus U-100 Insulin 100 unit/mL subcutaneous solution (insulin glargine) 24 unit (0.24 mL) subcut QHS #10 mL 05/07/23 [Rx Last Taken Unknown] insulin syringe-needle U-100 0.3 mL 31 gauge x 5/16 (BD Insulin Syringe Ultra-Fine) #200 ea 05/07/23 [Rx Last Taken Unknown] Allergy/AdvReac Type Severity Reaction Status Date / Time egg Allergy Severe Anaphylaxis Verified 05/11/23 17:18 fish derived Allergy Severe Unknown Verified 05/11/23 17:18 nitrofurantoin Allergy Severe Anaphylaxis Verified 05/11/23 17:18 macrocrystalline [From Macrodantin] calcium carbonate AdvReac Severe unknown Verified 05/11/23 17:18 [From Florical] codeine AdvReac Severe unknown Verified 05/11/23 17:18 oxycodone HCl [From Percocet] AdvReac Severe unknown Verified 05/11/23 17:18 propoxyphene napsylate AdvReac Severe unknown Verified 05/11/23 17:18 [From Darvocet-N 100] sodium fluoride AdvReac Severe unknown Verified 05/11/23 17:18 [From Florical] Sulfa (Sulfonamide AdvReac Severe Hives Verified 05/11/23 17:18 Antibiotics) tamoxifen AdvReac Severe Hives Verified 05/11/23 17:18 dulaglutide [From Trulicity] AdvReac Intermediate Diarrhea Verified 05/11/23 17:18 glimepiride AdvReac Intermediate Diarrhea Verified 05/11/23 17:18 morphine AdvReac Other Verified 05/11/23 17:18 Family History Sister Heart disease Breast cancer Asthma Depression Mother Diabetes Heart disease Breast cancer Arthritis Father Diabetes Heart disease Arthritis Unknown No problems noted. Brother Arthritis Surgical History H/O breast surgery History of coronary artery stent placement (10/10/18) History of hysterectomy History of left heart catheterization (LHC) (03/15/19) History of lumpectomy of left breast Hx of cholecystectomy Social History Smoking Status: Never smoker alcohol intake: never substance use type: does not use caffeine: No what type of physical activity do you participate in: walking, aerobics and weight training ROS ROS ED Constitutional Constitutional ED: Denies chills or fever(s) Eyes Eyes: Denies change in vision ENT ENT ED: Denies rhinorrhea or sore throat Cardiovascular Cardiovascular: Denies chest pain or palpitations Respiratory/Chest Respiratory/Chest: Denies cough or dyspnea Gastrointestinal Gastrointestinal: Reports abdominal pain and melena; Denies diarrhea, nausea or vomiting Genitourinary Genitourinary ED: Denies dysuria Musculoskeletal Musculoskeletal: Denies back pain or extremity pain Integumentary Denies Abrasions or rash Neurologic Neurologic: Denies headache(s) or weakness Psychiatric Psychiatric: Denies anxiety or depression Allergic/Immunologic Allergic/Immunologic ED: Denies lip swelling or urticaria EXAM Physical Exam Const Vital Signs: 05/11/23 17:18 05/11/23 20:56 Temperature 97.7 F L Temperature Source Temporal Pulse Rate 87 75 Respiratory Rate 18 15 Blood Pressure 144/87 H 157/86 H Blood Pressure Mean 106 109 Pulse Ox 99 96 Oxygen Delivery Method Room Air Positive well nourished and well developed General Appearance ED: well developed HEENT Reports moist mucous membranes Eyes EOMs intact bilaterally Chest Wall inspection of chest normal and palpation of chest normal Resp normal respiratory effort and clear to auscultation bilaterally Cardio regular rate and regular rhythm GI non-tender Auscultation: hypoactive bowel sounds Palpation: soft Extremity normal to inspection Neuro oriented x3 Sensorium / Orientation: alert Psych mental status grossly normal Skin no rashes or lesions noted MDM MDM MDM Narrative Medical decision making narrative: IV line established. Labwork obtained to evaluate for leukocytosis, anemia, and electrolyte derangement. CT scan of the abdomen pelvis with IV contrast obtained to evaluate for any focal bowel wall thickening. History & Record Review Discussion w/independent historian: Patient and Family Lab Data Attestation: I reviewed the patient's lab results. Labs: Laboratory Results - last 24 hr 05/11/23 18:45 WBC 9.7 RBC 4.79 Hgb 13.8 Hct 41.7 MCV 87.1 MCH 28.8 MCHC 33.1 RDW Std Deviation 38.6 RDW Coeff of Sanjay 11.9 Plt Count 257 MPV 10.8 Immature Gran % (Auto) 0.300 Neut % (Auto) 68.9 Lymph % (Auto) 21.0 Tate % (Auto) 5.9 Eos % (Auto) 3.5 Baso % (Auto) 0.4 Absolute Neuts (auto) 6.7 Absolute Lymphs (auto) 2.03 Nucleated RBC % 0 PT 12.9 INR 1.0 APTT 28.8 Sodium 134 L Potassium 4.0 Chloride 100 Carbon Dioxide 27.0 Anion Gap 7 BUN 14 Creatinine 0.94 Estim Creat Clear Calc 71.00 Est GFR (MDRD) Af Amer 77 Est GFR (MDRD) Non-Af 63 BUN/Creatinine Ratio 14.8 Glucose 452 H* Calcium 8.7 Total Bilirubin 0.50 Direct Bilirubin 0.11 AST 17 ALT 26 Alkaline Phosphatase 72 Total Protein 7.3 Albumin 3.6 Globulin 3.7 Radiography Diagnostic Testing: Clinical Impression(s) from Imaging Studies Abdomen/Pelvis CT 05/11/23 18:16 IMPRESSION: Descending colitis. No bowel obstruction. Nonvisualized appendix with no secondary signs of acute appendicitis. Status post cholecystectomy, otherwise unremarkable abdominal viscera. Electronically Signed: Nydia Reilly MD at 19:56 EDT , Treatment and Re-Evaluation :: CBC was normal white count 9.7 with a hemoglobin of 13.8. Chemistry studies are unremarkable other than a glucose of 452. Patient states she has not taken her insulin and she is given 10 units of insulin here. LFTs are unremarkable. Stool guaiac does return positive. CT scan of the abdomen and pelvis reveals descending colitis with no evidence of bowel obstruction. I spoke with Dr. Vila, on-call for GI. He states that if we can get the patient prepped for colonoscopy he will perform this tomorrow. He would like to hold off on any antibiotics until after the scope. I will speak with the hospitalist. Discharge Plan Triage Chief Complaint: GI Bleed ED Provider: Renae Marinelli Dx/Rx/DC Orders Clinical Impression: GI bleeding, Colitis, Hyperglycemia Prescriptions: No Action calcium carbonate 200 mg calcium (500 mg)-vitamin D3 400 unit tablet 200 mg (500 mg) -400 unit tablet 1 tab PO BID (DME) insulin syringe-needle U-100 [BD Insulin Syringe Ultra-Fine] 0.3 mL 31 gauge x 5/16 syringe See Rx Instructions .ROUTE .MEDSUPPLY Qty: 120 8RF Rx Instructions: 4 times daily (DME) FreeStyle To 2 Sensor Kit See Rx Instructions .Route Qty: 2 6RF Rx Instructions: As directed albuterol sulfate [Ventolin HFA] 90 mcg/actuation HFA aerosol inhaler 2 puff inhalation Q6H PRN (Reason: shortness of breath or wheezing) bupropion HCl [Wellbutrin SR] 150 mg tablet sustained-release 12 hr 150 mg PO BID insulin glargine [Lantus U-100 Insulin] 100 unit/mL solution 24 unit subcut QHS Qty: 10 6RF (DME) insulin syringe-needle U-100 [BD Insulin Syringe Ultra-Fine] 0.3 mL 31 gauge x 5/16 syringe See Rx Instructions .Route Qty: 200 6RF Rx Instructions: 4 times per day oxycodone 5 mg tablet 5 mg PO Q6H PRN (Reason: pain) 5 Days Qty: 20 0RF aspirin 81 MG tablet 81 mg PO DAILY@0800 0RF meclizine 25 MG tablet 25 mg PO TID PRN PRN (Reason: Dizziness) ondansetron 4 mg tablet,disintegrating 4 mg PO Q6H PRN (Reason: nausea and vomiting) Qty: 12 0RF fluticasone propion-salmeterol 250-50 mcg/dose blister with device 1 ea INHALATION BID PRN (Reason: shortness of breath or wheezing) trazodone 100 mg tablet 200 mg PO QHS omeprazole 40 mg capsule,delayed release(DR/EC) 40 mg PO DAILY Qty: 90 1RF oxybutynin chloride 10 mg tablet extended release 24hr 10 mg PO DAILY Qty: 90 1RF duloxetine 30 mg capsule,delayed release(DR/EC) 30 mg PO BID Qty: 180 1RF nitroglycerin 0.4 mg tablet, sublingual 0.4 mg SUBLINGUAL Q5-15M PRN (Reason: chest pain) Qty: 25 5RF Rx Instructions: until response; do not exceed 3 doses per episode (DME) lancets [Comfort EZ Lancets] 28 gauge misc See Rx Instructions .Route Qty: 100 5RF Rx Instructions: 4x/day rosuvastatin 40 mg tablet 40 mg PO DAILY Qty: 90 3RF anastrozole 1 mg tablet 1 mg PO DAILY Qty: 90 3RF carvedilol 6.25 mg tablet 6.25 mg PO BID Qty: 180 3RF insulin aspart U-100 [Novolog U-100 Insulin aspart] 100 unit/mL solution 20 unit subcut TID Qty: 20 6RF (DME) Accu-Chek Guide test strips Strip See Rx Instructions .Route Qty: 100 12RF Rx Instructions: test tid isosorbide mononitrate 60 mg tablet extended release 24 hr 60 mg PO DAILY Qty: 90 3RF Primary Care Provider: Felicita Hill Referrals: Felicita Hill, [Primary Care Provider] - Disposition Disposition: Acute Care Hospital [facility]
[2023-05-11] MEDS: 0.9% Normal Saline (1000mL) 1,000 ML 150 ML IV (18:31)
[2023-05-11 18:49] LABS: Absolute Lymphocyte Count 2.03 X10^3/uL (0.83-4.51); Absolute Neutrophil Count 6.7 X10^3/uL (2.0-7.7); Basophil# 0.04 X10^3/uL; Basophil% 0.4 % (0-1); Eosinophil# 0.34 X10^3/uL; Eosinophils% 3.5 % (0-5); Hematocrit 41.7 % (37-47); Hemoglobin 13.8 g/dL (12.0-15.0); Lymphocyte # 2.03 X10^3/ul (0.83-4.51); Mean Corp Hgb Conc 33.1 g/dL (32-36); Mean Corpuscular Hgb 28.8 pg (27.0-32.0); Mean Corpuscular Volume 87.1 fL (81-99); Mean Platelet Vol. 10.8 fl (6.2-12.0); Monocyte# 0.57 X10^3/uL; Monocyte% 5.9 % (0-10); NRBC Flagged by Analyzer 0 % (0-5); Neutrophil # 6.67 X10^3/uL (2.7-7.7); Neutrophil % 68.9 % (47-70); Platelet Count 257 K/mm3 (150-450); RBC Distribution Width CV 11.9 % (11.6-14.6); RBC Distribution Width SD 38.6 fl (35.1-43.9); Red Blood Count 4.79 M/mm3 (4.2-5.4); White Blood Count 9.7 K/mm3 (4.4-11.0)
[2023-05-11 19:01] LABS: Prothrombin Time (Protime)PT. 12.9 SECONDS (11.7-14.9)
[2023-05-11 19:04] LABS: Partial Thromboplast Time 28.8 Seconds (24.1-36.2)
[2023-05-11 19:24] LABS: AST(SGOT) 17 U/L (15-37); Alanine Aminotransfer ALT/SGPT 26 U/L (13-56); Albumin, Serum 3.6 g/dL (3.2-5.0); Alkaline Phosphatase 72 U/L (45-117); Anion Gap 7 (5-15); BUN 14 mg/dL (7-18); BUN/Creat Ratio 14.8 RATIO (10-20); Bilirubin, Direct 0.11 mg/dL (0.00-0.30); Calcium,Total 8.7 mg/dL (8.5-10.1); Chloride 100 mmol/L (98-107); Creatinine, Serum 0.94 mg/dL (0.55-1.02); EST Glomerular Filtration Rate 63 mL/min (>60); Est Glom Filt Rate - Afr Amer 77 mL/min (>60); Globulin 3.7 g/dL (2.2-4.2); Glucose 452 mg/dL (74-106); Protein, Total 7.3 g/dL (6.4-8.2); Sodium Level 134 mmol/L (136-145)
[2023-05-11] MEDS: Insulin Lispro 100 UNIT/ML INSULN.PEN 10 UNIT SC (20:54)
[2023-05-11 20:56] VITALS: BP 157/86; PULSE 75; RESP 15; O2SAT 96
[2023-05-11 22:11] VITALS: BP 148/84; PULSE 76; RESP 15; O2SAT 96
--- NOTE | 2023-05-11 22:22 | HP.PCM.HOS_ITS ---
HPI - General General Date of Admission: 05/11/23 Date of Service: 05/11/23 Chief Complaint: BRIGHT RED BLOOD PER RECTUM HPI Narrative ANGEL ALMODOVAR, is a 63 F with significant history of diabetes mellitus and CAD status post 2 stents 3 years ago who presents to the emergency department with bright red blood per rectum. Patient's symptoms started a day before presentation with 2 episodes of bowel movements with his stool mixed with blood. On the day of presentation patient did not not have any bowel movements. However she had two episodes of bright red blood per rectum. Of note at baseline patient's bowel does not move every day. Typically her bowels move 1-2 times per week. Associated with patient's symptoms is abdominal cramping. She denies any nausea or vomiting. Patient has never had a colonoscopy before. Emergency department doctor reports brown stool that tested positive for occult blood. CT of abdomen and pelvis showed colitis. Per discussion between ED doctor and gastroenterology no antibiotics is needed at this time. [facility] Medical History Abnormal mammogram Anxiety Asthma Atherosclerosis of coronary artery of [place] heart without angina pectoris Bilateral hip pain Bilateral knee pain Cancer Cardiology follow-up encounter Cast in place on extremity Chronic suprapubic pain COPD (chronic obstructive pulmonary disease) Depression Depression Diabetes mellitus type 2 in obese Dietary restriction Essential (primary) hypertension Fibromyalgia GERD (gastroesophageal reflux disease) High cholesterol History of edema History of heart attack History of Holter monitoring History of stress test Hyperlipidemia Insulin dependent diabetes mellitus Ischemic cardiomyopathy Learning disabilities Memory loss Noncompliance with diabetes treatment Obesity Open wound Osteoarthritis Polyarthropathy Rheumatoid arthritis STEMI (ST elevation myocardial infarction) (10/10/18) Strep pharyngitis Syncope Type 2 diabetes mellitus Urinary incontinence Wears glasses Wears hearing aid Home Medications aspirin 81 mg tablet,delayed release 81 mg PO DAILY@0800 10/12/18 [Rx Last Taken 05/11/23] meclizine 25 mg tablet 25 mg PO TID PRN PRN Dizziness 07/14/20 [History Last Taken 05/10/23] calcium carbonate 200 mg calcium (500 mg)-vitamin D3 400 unit tablet 1 tab PO BID 08/26/20 [History Last Taken 05/11/23] insulin syringe-needle U-100 0.3 mL 31 gauge x 5/16 (BD Insulin Syringe Ultra- Fine) #120 ea 11/24/21 [Rx Last Taken Unknown] flash glucose sensor (FreeStyle To 2 Sensor kit) #2 ea 05/14/22 [Rx Last Taken Unknown] albuterol sulfate 90 mcg/actuation aerosol inhaler (Ventolin HFA) 2 puff inhalation Q6H PRN shortness of breath or wheezing 07/15/22 [History Last Taken 05/04/23] omeprazole 40 mg capsule,delayed release 40 mg PO DAILY #90 caps 08/05/22 [Rx Last Taken 05/12/23] duloxetine 30 mg capsule,delayed release 30 mg PO BID #180 caps 08/07/22 [Rx Last Taken 05/11/23] oxybutynin chloride 10 mg tablet,extended release 24 hr 10 mg PO DAILY #90 tabs 08/07/22 [Rx Last Taken 05/12/23] nitroglycerin 0.4 mg sublingual tablet 0.4 mg sublingual Q5-15M PRN chest pain #25 tabs 08/12/22 [Rx Last Taken Unknown] lancets 28 gauge (Comfort EZ Lancets) #100 ea 09/03/22 [Rx Last Taken Unknown] rosuvastatin 40 mg tablet 40 mg PO DAILY cholestrol #90 tabs 10/12/22 [Rx Last Taken 05/12/23] anastrozole 1 mg tablet 1 mg PO DAILY #90 tabs 12/22/22 [Rx Last Taken 05/11/23] carvedilol 6.25 mg tablet 6.25 mg PO BID #180 tabs 12/22/22 [Rx Last Taken 05/11/23] bupropion HCl 150 mg tablet,12 hr sustained-release (Wellbutrin SR) 150 mg PO DAILY 02/04/23 [History Last Taken 05/11/23] ondansetron 4 mg disintegrating tablet 4 mg PO Q6H PRN nausea and vomiting #12 tabs 02/15/23 [Rx Last Taken 05/11/23] fluticasone 250 mcg-salmeterol 50 mcg/dose blistr powdr for inhalation 1 ea inhalation BID PRN shortness of breath or wheezing 02/19/23 [History Last Taken Unknown] trazodone 100 mg tablet 200 mg PO QHS 02/19/23 [History Last Taken 05/11/23] Novolog U-100 Insulin aspart 100 unit/mL subcutaneous solution (insulin aspart U-100) 20 unit (0.2 mL) subcut TID #20 mL 03/15/23 [Rx Last Taken 05/12/23] blood sugar diagnostic (Accu-Chek Guide test strips) #100 ea 03/15/23 [Rx Last Taken Unknown] isosorbide mononitrate 60 mg tablet,extended release 24 hr 60 mg PO DAILY #90 tabs 05/04/23 [Rx Last Taken 05/11/23] insulin syringe-needle U-100 0.3 mL 31 gauge x 5/16 (BD Insulin Syringe Ultra- Fine) #200 ea 05/07/23 [Rx Last Taken Unknown] insulin glargine 100 unit/mL subcutaneous solution (Lantus U-100 Insulin) 40 unit subcut QHS 05/11/23 [History Last Taken 05/10/23] Allergy/AdvReac Type Severity Reaction Status Date / Time egg Allergy Severe Anaphylaxis Verified 05/11/23 17:18 fish derived Allergy Severe Unknown Verified 05/11/23 17:18 nitrofurantoin Allergy Severe Anaphylaxis Verified 05/11/23 17:18 macrocrystalline [From Macrodantin] calcium carbonate AdvReac Severe unknown Verified 05/11/23 17:18 [From Florical] codeine AdvReac Severe unknown Verified 05/11/23 17:18 oxycodone HCl [From Percocet] AdvReac Severe unknown Verified 05/11/23 17:18 propoxyphene napsylate AdvReac Severe unknown Verified 05/11/23 17:18 [From Darvocet-N 100] sodium fluoride AdvReac Severe unknown Verified 05/11/23 17:18 [From Florical] Sulfa (Sulfonamide AdvReac Severe Hives Verified 05/11/23 17:18 Antibiotics) tamoxifen AdvReac Severe Hives Verified 05/11/23 17:18 dulaglutide [From Trulicity] AdvReac Intermediate Diarrhea Verified 05/11/23 17:18 glimepiride AdvReac Intermediate Diarrhea Verified 05/11/23 17:18 morphine AdvReac Other Verified 05/11/23 17:18 Family History Sister Heart disease Breast cancer Asthma Depression Mother Diabetes Heart disease Breast cancer Arthritis Father Diabetes Heart disease Arthritis Unknown No problems noted. Brother Arthritis Surgical History H/O breast surgery History of coronary artery stent placement (10/10/18) History of hysterectomy History of left heart catheterization (LHC) (03/15/19) History of lumpectomy of left breast Hx of cholecystectomy Social History Smoking Status: Never smoker alcohol intake: never substance use type: does not use caffeine: No what type of physical activity do you participate in: walking, aerobics and weight training ROS ROS Narrative Pertinent positives and pertinent negatives as noted in HPI. All other systems were reviewed and are negative Vital Signs Vital Signs Vital Signs: 05/11/23 17:18 05/11/23 20:56 05/11/23 22:11 Temperature 97.7 F L Temperature Source Temporal Pulse Rate 87 75 76 Respiratory Rate 18 15 15 Blood Pressure 144/87 H 157/86 H 148/84 H Blood Pressure Mean 106 109 105 Pulse Ox 99 96 96 Oxygen Delivery Method Room Air Room Air Weight Weight: 74.389 kg Body Mass Index (BMI) 35.4 Physical Exam Narrative Physical exam: General: Well-nourished, well-developed. Head: Normocephalic, atraumatic, no tenderness Eyes: Vision is grossly intact. EOMI ENT, no trauma, moist mucous membranes, no rhinorrhea Neck: Nontender, No thyromegaly. CVS: Regular rate and rhythm. S1-S2 present. No murmur, gallop or rub. Respiratory : clear to auscultation bilaterally, chest wall nontender Abdomen: Soft, nontender, nondistended, normal bowel sounds, no masses : Deferred Back: Nontender, no CVA tenderness, no midline spinal tenderness, deformities, step-offs Extremities: Nontender full range of motion, no trauma Skin: Normal color, no trauma, abrasions Neuro: Alert, oriented, cranial nerves II through XII grossly intact. Psychiatry: Normal mood. Normal affect. Not depressed. Not anxious. Results Lab / Micro Data 05/11/23 23:50 05/11/23 18:45 Labs: Laboratory Results - last 24 hr 05/11/23 18:45: WBC 9.7, RBC 4.79, Hgb 13.8, Hct 41.7, MCV 87.1, MCH 28.8, MCHC 33.1, RDW Std Deviation 38.6, RDW Coeff of Sanjay 11.9, Plt Count 257, MPV 10.8, Immature Gran % (Auto) 0.300, Neut % (Auto) 68.9, Lymph % (Auto) 21.0, Dent % (Auto) 5.9, Eos % (Auto) 3.5, Baso % (Auto) 0.4, Absolute Neuts (auto) 6.7, Absolute Lymphs (auto) 2.03, Nucleated RBC % 0, PT 12.9, INR 1.0, APTT 28.8, Sodium 134 L, Potassium 4.0, Chloride 100, Carbon Dioxide 27.0, Anion Gap 7, BUN 14, Creatinine 0.94, Estim Creat Clear Calc 71.00, Est GFR (MDRD) Af Amer 77, Est GFR (MDRD) Non-Af 63, BUN/Creatinine Ratio 14.8, Glucose 452 H*, Calcium 8.7, Total Bilirubin 0.50, Direct Bilirubin 0.11, AST 17, ALT 26, Alkaline Phosphatase 72, Total Protein 7.3, Albumin 3.6, Globulin 3.7 Micro: Microbiology 05/11/23 19:55 Stool Stool Occult Blood (HUAN) - Final Occult Blood Positive Radiology Impression Abdomen/Pelvis CT 05/11/23 18:16 IMPRESSION: Descending colitis. No bowel obstruction. Nonvisualized appendix with no secondary signs of acute appendicitis. Status post cholecystectomy, otherwise unremarkable abdominal viscera. Electronically Signed: Nydia Reilly MD at 19:56 EDT , Assessment & Plan Assessment/Plan (1) Bright red blood per rectum: (2) Type 2 diabetes mellitus: QUALIFIERS: Diabetes mellitus intermediate manager insulin use: with senior living use Diabetes mellitus complication status: with hyperglycemia Qualified Code(s): E11.65 - Type 2 diabetes mellitus with hyperglycemia; Z79.4 - FPC (current) use of insulin (3) Essential (primary) hypertension: PLAN: Plan Bright red blood per rectum. Abdomen and pelvis CT showed descending colitis per radiologist interpretation. Abdomen/pelvis CT was independently interpreted inflammation of descending colon noted. Patient with no fever or leukocytosis. Hemoglobin on presentation was 13.8; within baseline. Trend. Hold aspirin. Keep NPO. Bowel prep ordered per GI recommendations. GI consult. Supportive treatment with IV fluids. Diabetes mellitus with hyperglycemia Patient has severely elevated blood glucose of 452 on presentation. Received 10 units of short acting insulin in the emergency department. With patient being n.p.o.will de-escalate home dose of basal insulin. Accu-Chek every 4 hours of correction scale insulin ordered. Hypertension Blood pressure is not within goal Home blood pressure medication continued. Trend blood pressure and adjust blood pressure medications. DVT prophylaxis SCDs ordered. Time spent in the patient's overall evaluation,decision-making process, review o f diagnostic data, adjustment of management, discussion with other providers, nursing nursing and ancillary staff involved in patient's care documentation, 60 minutes. Charges/Coding Visit Charges Inpatient E&M: 68061 Init Hosp L3
[2023-05-11 22:33] LABS: Bedside Glucose 212 mg/dL (74-106)
--- NOTE | 2023-05-11 23:00 | EX.PCM.CON.G ---
HPI Consult Data Date of Consult: 05/11/23 HPI Narrative Reason for Consultation: GI bleeding HPI Narrative: ANGEL ALMODOVAR, is a 63 F who presents secondary to abdominal pain and rectal bleeding. PMH is significant history of diabetes mellitus and CAD status post 2 stents 3 years ago. She states yesterday she went to a local restaurant. She can even eat because she developed abdominal cramping and had dark tarry stools. She states today her pain is improved but she continues to have dark tarry stools. She denies ever having a colonoscopy. No history of ulcers. She takes aspirin daily but no other form of anticoagulant. She had a CT scan abdomen pelvis in the ED and it showed diffuse colitis involving the left side of the colon. Stool studies for infection are pending. Her history is also significant for DCIS of the left breast, status post partial mastectomy November 2018, followed by adjuvant radiation and has been on adjuvant hormonal therapy since. Initially treated with tamoxifen then switched to Arimidex due to an adverse drug reaction (hives). Compliance with hormonal therapy has not been optimal, patient interrupted treatment sometime in 2021/2022. She has a strong family history of breast cancer involving 3 generations, BRCA 1 and 2 testing negative in 2005 (according to patient). Updated genetic testing August 2021 was negative as per Oncology. [facility] Medical History Abnormal mammogram Anxiety Asthma Atherosclerosis of coronary artery of [place] heart without angina pectoris Bilateral hip pain Bilateral knee pain Cancer Cardiology follow-up encounter Cast in place on extremity Chronic suprapubic pain COPD (chronic obstructive pulmonary disease) Depression Depression Diabetes mellitus type 2 in obese Dietary restriction Essential (primary) hypertension Fibromyalgia GERD (gastroesophageal reflux disease) High cholesterol History of edema History of heart attack History of Holter monitoring History of stress test Hyperlipidemia Insulin dependent diabetes mellitus Ischemic cardiomyopathy Learning disabilities Memory loss Noncompliance with diabetes treatment Obesity Open wound Osteoarthritis Polyarthropathy Rheumatoid arthritis STEMI (ST elevation myocardial infarction) (10/10/18) Strep pharyngitis Syncope Type 2 diabetes mellitus Urinary incontinence Wears glasses Wears hearing aid Home Medications aspirin 81 mg tablet,delayed release 81 mg PO DAILY@0800 10/12/18 [Rx Last Taken 05/11/23] meclizine 25 mg tablet 25 mg PO TID PRN PRN Dizziness 07/14/20 [History Last Taken 05/10/23] calcium carbonate 200 mg calcium (500 mg)-vitamin D3 400 unit tablet 1 tab PO BID 08/26/20 [History Last Taken 05/11/23] insulin syringe-needle U-100 0.3 mL 31 gauge x 5/16 (BD Insulin Syringe Ultra-Fine) #120 ea 11/24/21 [Rx Last Taken Unknown] flash glucose sensor (FreeStyle To 2 Sensor kit) #2 ea 05/14/22 [Rx Last Taken Unknown] albuterol sulfate 90 mcg/actuation aerosol inhaler (Ventolin HFA) 2 puff inhalation Q6H PRN shortness of breath or wheezing 07/15/22 [History Last Taken 05/04/23] omeprazole 40 mg capsule,delayed release 40 mg PO DAILY #90 caps 08/05/22 [Rx Last Taken 05/12/23] duloxetine 30 mg capsule,delayed release 30 mg PO BID #180 caps 08/07/22 [Rx Last Taken 05/11/23] oxybutynin chloride 10 mg tablet,extended release 24 hr 10 mg PO DAILY #90 tabs 08/07/22 [Rx Last Taken 05/12/23] nitroglycerin 0.4 mg sublingual tablet 0.4 mg sublingual Q5-15M PRN chest pain #25 tabs 08/12/22 [Rx Last Taken Unknown] lancets 28 gauge (Comfort EZ Lancets) #100 ea 09/03/22 [Rx Last Taken Unknown] rosuvastatin 40 mg tablet 40 mg PO DAILY cholestrol #90 tabs 10/12/22 [Rx Last Taken 05/12/23] anastrozole 1 mg tablet 1 mg PO DAILY #90 tabs 12/22/22 [Rx Last Taken 05/11/23] carvedilol 6.25 mg tablet 6.25 mg PO BID #180 tabs 12/22/22 [Rx Last Taken 05/11/23] bupropion HCl 150 mg tablet,12 hr sustained-release (Wellbutrin SR) 150 mg PO DAILY 02/04/23 [History Last Taken 05/11/23] ondansetron 4 mg disintegrating tablet 4 mg PO Q6H PRN nausea and vomiting #12 tabs 02/15/23 [Rx Last Taken 05/11/23] fluticasone 250 mcg-salmeterol 50 mcg/dose blistr powdr for inhalation 1 ea inhalation BID PRN shortness of breath or wheezing 02/19/23 [History Last Taken Unknown] trazodone 100 mg tablet 200 mg PO QHS 02/19/23 [History Last Taken 05/11/23] Novolog U-100 Insulin aspart 100 unit/mL subcutaneous solution (insulin aspart U-100) 20 unit (0.2 mL) subcut TID #20 mL 03/15/23 [Rx Last Taken 05/12/23] blood sugar diagnostic (Accu-Chek Guide test strips) #100 ea 03/15/23 [Rx Last Taken Unknown] isosorbide mononitrate 60 mg tablet,extended release 24 hr 60 mg PO DAILY #90 tabs 05/04/23 [Rx Last Taken 05/11/23] insulin syringe-needle U-100 0.3 mL 31 gauge x 5/16 (BD Insulin Syringe Ultra-Fine) #200 ea 05/07/23 [Rx Last Taken Unknown] insulin glargine 100 unit/mL subcutaneous solution (Lantus U-100 Insulin) 40 unit subcut QHS 05/11/23 [History Last Taken 05/10/23] Allergy/AdvReac Type Severity Reaction Status Date / Time egg Allergy Severe Anaphylaxis Verified 05/11/23 17:18 fish derived Allergy Severe Unknown Verified 05/11/23 17:18 nitrofurantoin Allergy Severe Anaphylaxis Verified 05/11/23 17:18 macrocrystalline [From Macrodantin] calcium carbonate AdvReac Severe unknown Verified 05/11/23 17:18 [From Florical] codeine AdvReac Severe unknown Verified 05/11/23 17:18 oxycodone HCl [From Percocet] AdvReac Severe unknown Verified 05/11/23 17:18 propoxyphene napsylate AdvReac Severe unknown Verified 05/11/23 17:18 [From Darvocet-N 100] sodium fluoride AdvReac Severe unknown Verified 05/11/23 17:18 [From Florical] Sulfa (Sulfonamide AdvReac Severe Hives Verified 05/11/23 17:18 Antibiotics) tamoxifen AdvReac Severe Hives Verified 05/11/23 17:18 dulaglutide [From Trulicity] AdvReac Intermediate Diarrhea Verified 05/11/23 17:18 glimepiride AdvReac Intermediate Diarrhea Verified 05/11/23 17:18 morphine AdvReac Other Verified 05/11/23 17:18 Family History Sister Heart disease Breast cancer Asthma Depression Mother Diabetes Heart disease Breast cancer Arthritis Father Diabetes Heart disease Arthritis Unknown No problems noted. Brother Arthritis Surgical History H/O breast surgery History of coronary artery stent placement (10/10/18) History of hysterectomy History of left heart catheterization (LHC) (03/15/19) History of lumpectomy of left breast Hx of cholecystectomy Social History Smoking Status: Never smoker alcohol intake: never substance use type: does not use caffeine: No what type of physical activity do you participate in: walking, aerobics and weight training ROS Constitutional Constitutional: Reports systems reviewed and no addt'l complaints, except as documented and fatigue; Denies fever(s) or weight loss Eyes Eyes: Reports systems reviewed and no addt'l complaints, except as documented; Denies change in vision ENT HEENT: Reports systems reviewed and no addt'l complaints, except as documented Cardiovascular Cardiovascular: Reports systems reviewed and no addt'l complaints, except as documented, chest pain and other Details: Chest pain deep in the left axilla unrelated to exertion chronic. ; Denies chest pain with activity or edema Respiratory/Chest Respiratory/Chest: Reports systems reviewed and no addt'l complaints, except as documented, cough, dyspnea on exertion, wheezing and other Details: Has chronic asthma, never smoked Gastrointestinal Gastrointestinal: Reports systems reviewed and no addt'l complaints, except as documented; Denies change in bowel habits, hematochezia or melena Genitourinary Genitourinary: Reports systems reviewed and no addt'l complaints, except as documented; Denies hematuria Musculoskeletal Musculoskeletal: Reports systems reviewed and no addt'l complaints, except as documented and arthralgias Integumentary Integumentary: Reports systems reviewed and no addt'l complaints, except as documented; Denies rash Neurologic Neurologic: Reports systems reviewed and no addt'l complaints, except as documented and memory loss; Denies focal weakness or paresthesias Psychiatric Psychiatric: Reports systems reviewed and no addt'l complaints, except as documented Endocrine Endocrinology: Reports systems reviewed and no addt'l complaints, except as documented; Denies flushing Hematologic/Lymphatic Hematologic/Lymphatic: Reports systems reviewed and no addt'l complaints, except as documented; Denies easy bleeding or lymphadenopathy Allergic/Immunologic Allergic/Immunologic: Reports systems reviewed and no addt'l complaints, except as documented, wheezing and asthma Physical Exam Narrative Physical exam: General: Well-nourished, well-developed. Head: Normocephalic, atraumatic, no tenderness Eyes: Vision is grossly intact. EOMI ENT, no trauma, moist mucous membranes, no rhinorrhea Neck: Nontender, No thyromegaly. CVS: Regular rate and rhythm. S1-S2 present. No murmur, gallop or rub. Respiratory : clear to auscultation bilaterally, chest wall nontender Abdomen: Soft, nontender, nondistended, normal bowel sounds, no masses : Deferred Back: Nontender, no CVA tenderness, no midline spinal tenderness, deformities, step-offs Extremities: Nontender full range of motion, no trauma Skin: Normal color, no trauma, abrasions Neuro: Alert, oriented, cranial nerves II through XII grossly intact. Psychiatry: Normal mood. Normal affect. Not depressed. Not anxious. Lab / Micro Data 05/11/23 23:50 05/11/23 18:45 Labs: Laboratory Results - last 24 hr 05/11/23 18:45: WBC 9.7, RBC 4.79, Hgb 13.8, Hct 41.7, MCV 87.1, MCH 28.8, MCHC 33.1, RDW Std Deviation 38.6, RDW Coeff of Sanjay 11.9, Plt Count 257, MPV 10.8, Immature Gran % (Auto) 0.300, Neut % (Auto) 68.9, Lymph % (Auto) 21.0, [place] % (Auto) 5.9, Eos % (Auto) 3.5, Baso % (Auto) 0.4, Absolute Neuts (auto) 6.7, Absolute Lymphs (auto) 2.03, Nucleated RBC % 0, PT 12.9, INR 1.0, APTT 28.8, Sodium 134 L, Potassium 4.0, Chloride 100, Carbon Dioxide 27.0, Anion Gap 7, BUN 14, Creatinine 0.94, Estim Creat Clear Calc 71.00, Est GFR (MDRD) Af Amer 77, Est GFR (MDRD) Non-Af 63, BUN/Creatinine Ratio 14.8, Glucose 452 H*, Calcium 8.7, Total Bilirubin 0.50, Direct Bilirubin 0.11, AST 17, ALT 26, Alkaline Phosphatase 72, Total Protein 7.3, Albumin 3.6, Globulin 3.7 05/11/23 22:15: POC Glucose 212 H 05/11/23 23:50: Hgb 14.8, Hct 43.6 05/11/23 23:59: POC Glucose 142 H Micro: Microbiology 05/11/23 19:55 Stool Stool Occult Blood (HUAN) - Final Occult Blood Positive Radiology Impression Abdomen/Pelvis CT 05/11/23 18:16 IMPRESSION: Descending colitis. No bowel obstruction. Nonvisualized appendix with no secondary signs of acute appendicitis. Status post cholecystectomy, otherwise unremarkable abdominal viscera. 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 Her abdomen and pelvis CT showed descending colitis per radiologist interpretation. Abdomen/pelvis CT was independently interpreted inflammation of descending colon noted. Patient with no fever or leukocytosis. The differential diagnosis does include ischemic colitis, ulcerative colitis, infectious colitis. She should undergo colonoscopy for evaluation of her lower GI tract. Pending the severity of the colonoscopy she may need a CT angiography. She will also need stool studies for enteric pathogens and C. difficile. She was explained alternatives, risk, benefits including not withstanding bleeding, infection, sepsis, perforation, need for emergent surgery . She will have an ASA of 3.
[2023-05-11 23:06] VITALS: BP 148/84; PULSE 75; RESP 15; TEMP 36.5; O2SAT 95
[2023-05-11 23:21] VITALS: BMI 34.9
[2023-05-11 23:27] VITALS: BP 139/86; PULSE 71; RESP 17; TEMP 36.6; O2SAT 97
[2023-05-11] MEDS: 0.9% Normal Saline (1000mL) 1,000 ML 75 ML IV (23:30)
[2023-05-11] MEDS: Bisacodyl 5 MG Tablet 20 MG PO (23:37)
[2023-05-12] VITALS (13 sets, daily range): BP systolic 91–157; BP diastolic 55–91; PULSE 68–80; RESP 14–18; TEMP 36.2–36.9; O2SAT 92–99
--- NOTE | 2023-05-12 | COLBX_PTH ---
PATIENT: ANGEL ALMODOVAR LOC: MS3 U#:[id number] AGE/SX: 63/F ROOM: DC325 RE05/11/[address]: Dr. Mabel Ortiz DO : 1960 BED: 1 DIS: 05/12/2023 SPEC #: [id number] RECD: 05/12/23 12:07 STATUS: CULLEN BARKER #: [id number] JOSE: 05/12/23 00:[address]: Efraín Vila DEPT: SURGICAL PATHOLOGY RECD BY: Brendan Haas ENTERED: 05/12/23 13:15 SP TYPE: COLON BX PHIL DR: MD Dr. Mabel Busch DO Kristin M Wenger, DO Tissues: Sigmoid colon biopsy Procedures: Surgery Specimen Level IV HEADER OPERATION: Colonoscopy with biopsy PRE-OP DIAGNOSIS: Bright red blood per rectum TISSUE SUBMITTED: Sigmoid colon MICROSCOPIC DIAGNOSIS Sigmoid colon, biopsy: Ischemic colitis. AM:tony 05/13/2023 MICROSCOPIC DESCRIPTION Slides are reviewed. GROSS DESCRIPTION Received in fixative is one container labeled with the patient's name and designated sigmoid colon. The specimen consists of multiple irregular fragments of light rice soft tissue that in aggregate measure 1.0 x 0.5 x 0.1 cm. The specimen is totally submitted in one cassette. / AM:tony 05/12/2023 TC:3 CPT: 19359
[2023-05-12 00:07] LABS: Hematocrit 43.6 % (37-47); Hemoglobin 14.8 g/dL (12.0-15.0)
[2023-05-12] MEDS: HYDROmorphone 0.5 MG/0.5 ML SYRINGE IV ×2 (00:08→04:34)
[2023-05-12 00:22] LABS: Bedside Glucose 142 mg/dL (74-106)
[2023-05-12] MEDS: Ondansetron 4 MG/2 ML Vial IV ×2 (00:37→10:08)
[2023-05-12] MEDS: Electrolyte Solution/Peg's 4000 ML PO (00:39)
[2023-05-12] MEDS: proCHLORPERazine 10 MG/2 ML Vial 5 MG IV (03:07)
[2023-05-12] MEDS: Insulin Lispro 100 UNIT/ML INSULN.PEN SC ×3 (05:18→12:33)
--- NOTE | 2023-05-12 06:00 | EKG12_ITS ---
Test Reason : AM EKG Blood Pressure : / mmHG Vent. Rate : 079 BPM Atrial Rate : 079 BPM P-R Int : 152 ms QRS Dur : 086 ms QT Int : 408 ms P-R-T Axes : 055 048 055 degrees QTc Int : 467 ms Normal sinus rhythm Normal ECG Confirmed by MALLORIE MYERS, KATINA ([id number]), editor continuity and script BROOKLYN HARRIS ([id number]) on 05/18/2023 1:48:39 PM Referred By: JENNIFER Confirmed By:KATINA NOBLES MD
[2023-05-12 06:46] LABS: Bedside Glucose 260 mg/dL (74-106)
--- NOTE | 2023-05-12 07:10 | OP.CCLET_ITS ---
05/12/2023 Felicita Hill Do Re : Colonoscopy procedure for Berna Reich Dear Liz This procedure was performed on Friday, May 12, 2023. My impressions and recommendations are as follows: Impressions : - Stool in the rectum, in the sigmoid colon, in the descending colon, at the splenic flexure, in the transverse colon, at the hepatic flexure, in the ascending colon and in the cecum. - Granularity in the recto-sigmoid colon, in the sigmoid colon and in the descending colon. Biopsied. Recommendations : - Discharge patient to home. - Resume regular diet. - Continue present medications. - Await pathology results. - Repeat colonoscopy in 3 months because the bowel preparation was poor. My findings are described in the full procedure note, which is enclosed. If I can be of further assistance, please feel free to contact me at . Sincerely, Efraín Vila, 05/12/2023 7:08:47 AM This report has been signed electronically.
--- NOTE | 2023-05-12 07:10 | OP.COLON_ITS ---
Patient Name: Berna Reich Procedure Date: 05/12/2023 6:19 AM Date of : 1960 Age: 63 Procedure: Colonoscopy Indications: Abdominal pain in the left lower quadrant, Hematochezia Providers: Efraín Vila DO Medicines: Monitored Anesthesia Care Patient Profile: This is a 63 year old female. Refer to note in patient chart for documentation of history and physical. Last Colonoscopy: none. The patient's first colonoscopy is today. Complications: No immediate complications. Procedure: Pre-Anesthesia Assessment: - Prior to the procedure, a History and Physical was performed, and patient medications and allergies were reviewed. The patient is competent. The risks and benefits of the procedure and the sedation options and risks were discussed with the patient. All questions were answered and informed consent was obtained. Patient identification and proposed procedure were verified by the physician in the pre-procedure area. Mental Status Examination: alert and oriented. Airway Examination: normal oropharyngeal airway and neck mobility. Respiratory Examination: clear to auscultation. CV Examination: normal. Prophylactic Antibiotics: The patient does not require prophylactic antibiotics. Prior Anticoagulants: The patient has taken no anticoagulant or antiplatelet agents. ASA Grade Assessment: III - A patient with severe systemic disease. After reviewing the risks and benefits, the patient was deemed in satisfactory condition to undergo the procedure. The anesthesia plan was to use monitored anesthesia care (MAC). Immediately prior to administration of medications, the patient was re-assessed for adequacy to receive sedatives. The heart rate, respiratory rate, oxygen saturations, blood pressure, adequacy of pulmonary ventilation, and response to care were monitored throughout the procedure. The physical status of the patient was re-assessed after the procedure. After I obtained informed consent, the scope was passed under direct vision. Throughout the procedure, the patient's blood pressure, pulse, and oxygen saturations were monitored continuously. The colonoscope was introduced through the anus and advanced to the cecum, identified by appendiceal orifice and ileocecal valve. The colonoscopy was performed without difficulty. The patient tolerated the procedure well. The quality of the bowel preparation was 70 percent obscured. The appendiceal orifice was photographed. Scope In: 6:47:38 AM Scope Withdrawal Time 0 hours 7 minutes 32 seconds Scope Out: 7:00:50 AM Total Procedure Duration Time 0 hours 13 minutes 12 seconds Findings: The perianal and digital rectal examinations were normal. Extensive amounts of stool was found in the rectum, in the sigmoid colon, in the descending colon, at the splenic flexure, in the transverse colon, at the hepatic flexure, in the ascending colon and in the cecum, precluding visualization. A segmental area of granular mucosa was found in the recto-sigmoid colon, in the sigmoid colon and in the descending colon. Biopsies were taken with a cold forceps for histology. Verification of patient identification for the specimen was done. Estimated blood loss was minimal. Impression: - Stool in the rectum, in the sigmoid colon, in the descending colon, at the splenic flexure, in the transverse colon, at the hepatic flexure, in the ascending colon and in the cecum. - Granularity in the recto-sigmoid colon, in the sigmoid colon and in the descending colon. Biopsied. Recommendation: - Discharge patient to home. - Resume regular diet. - Continue present medications. - Await pathology results. - Repeat colonoscopy in 3 months because the bowel preparation was poor. Procedure Code(s): --- Professional --- 94696, Colonoscopy, flexible; with biopsy, single or multiple CPT copyright 2021 [employer]. All rights reserved. The codes documented in this report are preliminary and upon telegraph operator review may be revised to meet current compliance requirements. Efraín Vila DO 05/12/2023 7:08:47 AM This report has been signed electronically. Number of Addenda: 0 Note Initiated On: 05/12/2023 6:19 AM
[2023-05-12 08:50] LABS: Anion Gap 4 (5-15); BUN 10 mg/dL (7-18); BUN/Creat Ratio 15.7 RATIO (10-20); Calcium,Total 8.1 mg/dL (8.5-10.1); Chloride 106 mmol/L (98-107); Creatinine, Serum 0.64 mg/dL (0.55-1.02); EST Glomerular Filtration Rate 100 mL/min (>60); Est Glom Filt Rate - Afr Amer 121 mL/min (>60); Estimated Creatinine Clearance 102.66 ml/min; Glucose 250 mg/dL (74-106); Sodium Level 136 mmol/L (136-145)
[2023-05-12 10:30] LABS: Bedside Glucose 290 mg/dL (74-106)
--- NOTE | 2023-05-12 11:11 | CASEMGMT ---
SW met with patient. Introduced self and role at [facility]. SW notified patient that her Healthcare Power of Copy Preparer and Healthcare Living Will are not on file at [facility]. Patient said they are at her floor mechanic's office. SW asked patient if she could have a copy brought in so [facility] can have copies on file. Shanita Membreno TRAFFIC OBSERVER [employer]INEE
[2023-05-12] MEDS: Isosorbide Mononitrate 60 MG Tablet PO (12:01)
[2023-05-12] MEDS: Carvedilol 6.25 MG Tablet PO (12:02)
[2023-05-12] MEDS: buPROPion (SR) 150 MG Tablet.SA PO (12:02)
[2023-05-12] MEDS: Tolterodine Tartrate 2 MG CAP.SA PO (12:02)
[2023-05-12] MEDS: DULoxetine Hcl 30 MG Capsule PO (12:02)
[2023-05-12] MEDS: Anastrozole 1 MG TABLET PO (12:03)
[2023-05-12 12:53] LABS: Bedside Glucose 245 mg/dL (74-106)
[2023-05-12] MEDS: 0.9% Normal Saline (1000mL) 1,000 ML 75 ML IV (13:16)
--- NOTE | 2023-05-12 14:26 | DS.PCM_ITS ---
Providers Date of Admission: 05/11/23 Date of Discharge: 05/12/23 Primary Care Physician: Felicita Hill DO Consultations 05/11/23 23:16 Consult: Gastroenterology Routine Consulting Provider: [facility] Reason for Consult: BRBPR EMERGENT Consult: No MD Notified: Yes Date Notified: 05/11/23 Time Notified: 22:18 Method of Notification: ED Physician Initiated Reason For Visit: ACUTE LOWER GI BLEED Diagnosis Discharge Diagnosis (1) Bright red blood per rectum: Status: Acute Code(s): K62.5 - Hemorrhage of anus and rectum (2) Type 2 diabetes mellitus: Status: Chronic Code(s): E11.9 - Type 2 diabetes mellitus without complications Qualifiers: Diabetes mellitus long-term insulin use: with long-term use Diabetes mellitus complication status: with hyperglycemia Qualified Code(s): E11.65 - Type 2 diabetes mellitus with hyperglycemia; Z79.4 - [facility] (current) use of insulin (3) Essential (primary) hypertension: Status: Chronic Code(s): I10 - Essential (primary) hypertension Medications at Discharge Home Medications aspirin 81 mg tablet,delayed release 81 mg PO DAILY@0800 10/12/18 meclizine 25 mg tablet 25 mg PO TID PRN PRN Dizziness 07/14/20 calcium carbonate 200 mg calcium (500 mg)-vitamin D3 400 unit tablet 1 tab PO BID 08/26/20 insulin syringe-needle U-100 0.3 mL 31 gauge x 5/16 (BD Insulin Syringe Ultra- Fine) #120 ea 11/24/21 flash glucose sensor (FreeStyle To 2 Sensor kit) #2 ea 05/14/22 albuterol sulfate 90 mcg/actuation aerosol inhaler (Ventolin HFA) 2 puff inhalation Q6H PRN shortness of breath or wheezing 07/15/22 omeprazole 40 mg capsule,delayed release 40 mg PO DAILY #90 caps 08/05/22 duloxetine 30 mg capsule,delayed release 30 mg PO BID #180 caps 08/07/22 oxybutynin chloride 10 mg tablet,extended release 24 hr 10 mg PO DAILY #90 tabs 08/07/22 nitroglycerin 0.4 mg sublingual tablet 0.4 mg sublingual Q5-15M PRN chest pain #25 tabs 08/12/22 lancets 28 gauge (Comfort EZ Lancets) #100 ea 09/03/22 rosuvastatin 40 mg tablet 40 mg PO DAILY cholestrol #90 tabs 10/12/22 anastrozole 1 mg tablet 1 mg PO DAILY #90 tabs 12/22/22 carvedilol 6.25 mg tablet 6.25 mg PO BID #180 tabs 12/22/22 bupropion HCl 150 mg tablet,12 hr sustained-release (Wellbutrin SR) 150 mg PO DAILY 02/04/23 ondansetron 4 mg disintegrating tablet 4 mg PO Q6H PRN nausea and vomiting #12 tabs 02/15/23 fluticasone 250 mcg-salmeterol 50 mcg/dose blistr powdr for inhalation 1 ea inhalation BID PRN shortness of breath or wheezing 02/19/23 trazodone 100 mg tablet 200 mg PO QHS 02/19/23 Novolog U-100 Insulin aspart 100 unit/mL subcutaneous solution (insulin aspart U-100) 20 unit (0.2 mL) subcut TID #20 mL 03/15/23 blood sugar diagnostic (Accu-Chek Guide test strips) #100 ea 03/15/23 isosorbide mononitrate 60 mg tablet,extended release 24 hr 60 mg PO DAILY #90 tabs 05/04/23 insulin syringe-needle U-100 0.3 mL 31 gauge x 5/16 (BD Insulin Syringe Ultra- Fine) #200 ea 05/07/23 insulin glargine 100 unit/mL subcutaneous solution (Lantus U-100 Insulin) 40 unit subcut QHS 05/11/23 dicyclomine 10 mg capsule 10 mg PO TIDAC PRN abdominal pain/Cramping #90 caps 05/12/23 Hospital Course Procedures Colonoscopy and - (CT of the abdomen and pelvis) Summary of Care Provided Minutes Spent on Discharge: 29 Hospital Course: Ms. Reich is a 63-year-old white female with a complicated past medical history including diabetes mellitus and CAD status post 2 stents 3 years ago presented to the emergency department [facility] on 05/11/2023 with rectal bleeding. She went to a local restaurant yesterday and was not able to eat because she developed significant abdominal cramping and then had dark tarry stools. At presentation her pain had improved but she continued to have dark tarry stools. She had never had a previous colonoscopy. She is on chronic aspirin but no other forms of anticoagulation. Vital signs on presentation were overall unremarkable and she had a normal CBC and a normal chemistry panel except for marked hyperglycemia with a blood glucose of 452. She is a diabetic at baseline and had a recent hemoglobin A1c on 05/07/2023 that was 10.0. Adjustments were made in her insulin at that time. Her aspirin was held and a repeat hemoglobin was obtained and found to be stable. Gastroenterology was consulted and given the lack of previous colonoscopy and her history of breast cancer with a strong family history she was taken for colonoscopy. Colonoscopy was performed on the a.m. of 02/09/2023 and showed some stool in the rectum, sigmoid colon, descending colon, transverse colon, and ascending colon and the p rep was suboptimal however granularity in the rectosigmoid colon was identified and biopsies were taken. The patient was able to resume a regular diet and pathology is pending. A repeat colonoscopy was recommended in 3 months due to poor bowel prep for better evaluation of her colon given her age. I discussed the case with Dr. Vila from gastroenterology and he felt the patient could be discharged home as her hemoglobin was stable and she has had no further bleeding and felt that this episode was related to ischemic colitis. He did recommend we put her on as needed Bentyl for abdominal cramping. The patient was given breakfast which she ate but unfortunately had an emesis following. I discussed this further with the patient and she states she intermittently has emesis at home and has antiemetics. Her significant other who is at the bedside states that this has been an ongoing problem for her long-term and she has it a few times a week. They were wanting to go home if possible given that this is a chronic problem and she has had no further rectal bleeding. Since this is a ch ronic issue for her we did feel stable discharging her but she was instructed to come back if the nausea vomiting does not improve back to her baseline. She was able to be discharged in stable condition on 05/12/2023. I have asked her to follow-up with her primary care physician within the next 2 weeks and to call to make an appointment in the next day or 2 to follow-up with Dr. Vila for [facility] follow-up as well as scheduling a more complete colonoscopy to be seen in the next 2 to 3 months. The prescription for her Bentyl was sent to local pharmacy. Continue outpatient endocrinology follow-up for diabetes management. Discharge diagnoses: Rectal bleeding due to suspected ischemic colitis Abdominal cramping-resolved History of breast cancer-the DCIS [id number] CAD Asthma Anxiety Hyperlipidemia Diabetic neuropathy he Can Hypertension GERD Ischemic cardiomyopathy Osteoarthritis Fibromyalgia History of urinary continence Obesity Physical Exam Const alert, oriented x3, no apparent distress, no limitations and well nourished; Negative for average body habitus Constitutional Narrative: Obese, upper middle-aged, white female, sitting up in bed, significant other at bedside, patient appears comfortable and nontoxic General Appearance: cooperative, comfortable, well kempt and well developed Orientation / Consciousness: awake, oriented to person, oriented to place and oriented to time Exam Limitations: no limitations Nutritional Appearance: obese HEENT normocephalic, head/scalp atraumatic, hearing grossly normal bilaterally and moist oral mucous membranes HEENT Narrative: Dentition is fair for age, Mallampati is 2, no thrush Resp normal respiratory effort, no retractions, no use of accessory muscles and clear to auscultation bilaterally Auscultation: Negative for rales, rhonchi or wheezes Cardio regular rate, regular rhythm, S1 normal heart sound, S2 normal heart sound, no murmurs, no rub, no gallops and no clicks GI normal to inspection, nondistended, normoactive bowel sounds, soft to palpation and non-tender Extremity no clubbing, cyanosis or edema Extremity Narrative: Pedal pulses are 2+ Neuro oriented x3, moves all extremities, no focal motor deficits and No no sensory deficits noted Neuro Narrative: Bilateral distal lower extremity sensory losses Speech: speech normal Psych affect normal Psych Narrative: Pleasant, eye contact is good, patient interacts appropriately, mood is stable Weight / BMI Weight Weight: 73.227 kg Body Mass Index (BMI) 34.9 ABG / Lab / Microbiology Data 05/11/23 23:50 05/12/23 08:10 Laboratory: Laboratory Results - last 24 hr 05/11/23 18:45: WBC 9.7, RBC 4.79, Hgb 13.8, Hct 41.7, MCV 87.1, MCH 28.8, MCHC 33.1, RDW Std Deviation 38.6, RDW Coeff of Sanjay 11.9, Plt Count 257, MPV 10.8, Immature Gran % (Auto) 0.300, Neut % (Auto) 68.9, Lymph % (Auto) 21.0, [place] % (Auto) 5.9, Eos % (Auto) 3.5, Baso % (Auto) 0.4, Absolute Neuts (auto) 6.7, Absolute Lymphs (auto) 2.03, Nucleated RBC % 0, PT 12.9, INR 1.0, APTT 28.8, Sodium 134 L, Potassium 4.0, Chloride 100, Carbon Dioxide 27.0, Anion Gap 7, BUN 14, Creatinine 0.94, Estim Creat Clear Calc 71.00, Est GFR (MDRD) Af Amer 77, Est GFR (MDRD) Non-Af 63, BUN/Creatinine Ratio 14.8, Glucose 452 H*, Calcium 8.7, Total Bilirubin 0.50, Direct Bilirubin 0.11, AST 17, ALT 26, Alkaline Phosphatase 72, Total Protein 7.3, Albumin 3.6, Globulin 3.7 05/11/23 22:15: POC Glucose 212 H 05/11/23 23:50: Hgb 14.8, Hct 43.6 05/11/23 23:59: POC Glucose 142 H 05/12/23 05:14: POC Glucose 260 H 05/12/23 08:10: Sodium 136, Potassium 4.0, Chloride 106, Carbon Dioxide 26.0, Anion Gap 4 L, BUN 10, Creatinine 0.64, Estim Creat Clear Calc 102.66, Est GFR (MDRD) Af Amer 121, Est GFR (MDRD) Non-Af 100, BUN/Creatinine Ratio 15.7, Glucose 250 H, Calcium 8.1 L 05/12/23 10:07: POC Glucose 290 H 05/12/23 12:31: POC Glucose 245 H Microbiology: Microbiology 05/11/23 19:55 Stool Stool Occult Blood (HUAN) - Final Occult Blood Positive Radiography Diagnostic Testing: Radiology Impression Abdomen/Pelvis CT 05/11/23 18:16 IMPRESSION: Descending colitis. No bowel obstruction. Nonvisualized appendix with no secondary signs of acute appendicitis. Status post cholecystectomy, otherwise unremarkable abdominal viscera. Electronically Signed: Nydia Reilly MD at 19:56 EDT , D/C Instructions Discharge Diet: Low fat / Low cholesterol and 1800 Calorie Control Diet Discharge Activity: Return to Normal Activity Return to work on: 05/13/23 Meaningful Use Info Meaningful Use Diagnoses (Choose all that apply): None applicable Discharge Plan Admission Admit Date/Time: 05/11/23 22:09 Primary Reason for Your Visit: rectal bleeding Attending Provider: Mabel Ortiz Primary Care Provider: Felicita Hill Consulting Providers: Alek Leon Discharge Orders/Prescriptions Prescriptions: New dicyclomine 10 mg Capsule 10 mg PO TIDAC PRN (Reason: abdominal pain/Cramping) Qty: 90 0RF Continued calcium carbonate 200 mg calcium (500 mg)-vitamin D3 400 unit tablet 200 mg (500 mg) -400 unit tablet 1 tab PO BID (DME) insulin syringe-needle U-100 [BD Insulin Syringe Ultra-Fine] 0.3 mL 31 gauge x 5/16 syringe See Rx Instructions .ROUTE .MEDSUPPLY Qty: 120 8RF Rx Instructions: 4 times daily (DME) FreeStyle To 2 Sensor Kit See Rx Instructions .Route Qty: 2 6RF Rx Instructions: As directed albuterol sulfate [Ventolin HFA] 90 mcg/actuation HFA aerosol inhaler 2 puff inhalation Q6H PRN (Reason: shortness of breath or wheezing) bupropion HCl [Wellbutrin SR] 150 mg tablet sustained-release 12 hr 150 mg PO DAILY (DME) insulin syringe-needle U-100 [BD Insulin Syringe Ultra-Fine] 0.3 mL 31 gauge x 5/16 syringe See Rx Instructions .Route Qty: 200 6RF Rx Instructions: 4 times per day aspirin 81 MG tablet 81 mg PO DAILY@0800 0RF meclizine 25 MG tablet 25 mg PO TID PRN PRN (Reason: Dizziness) ondansetron 4 mg tablet,disintegrating 4 mg PO Q6H PRN (Reason: nausea and vomiting) Qty: 12 0RF fluticasone propion-salmeterol 250-50 mcg/dose blister with device 1 ea INHALATION BID PRN (Reason: shortness of breath or wheezing) trazodone 100 mg tablet 200 mg PO QHS insulin glargine [Lantus U-100 Insulin] 100 unit/mL solution 40 unit subcut QHS omeprazole 40 mg capsule,delayed release(DR/EC) 40 mg PO DAILY Qty: 90 1RF oxybutynin chloride 10 mg tablet extended release 24hr 10 mg PO DAILY Qty: 90 1RF duloxetine 30 mg capsule,delayed release(DR/EC) 30 mg PO BID Qty: 180 1RF nitroglycerin 0.4 mg tablet, sublingual 0.4 mg SUBLINGUAL Q5-15M PRN (Reason: chest pain) Qty: 25 5RF Rx Instructions: until response; do not exceed 3 doses per episode (DME) lancets [Comfort EZ Lancets] 28 gauge misc See Rx Instructions .Route Qty: 100 5RF Rx Instructions: 4x/day rosuvastatin 40 mg tablet 40 mg PO DAILY Qty: 90 3RF anastrozole 1 mg tablet 1 mg PO DAILY Qty: 90 3RF carvedilol 6.25 mg tablet 6.25 mg PO BID Qty: 180 3RF insulin aspart U-100 [Novolog U-100 Insulin aspart] 100 unit/mL solution 20 unit subcut TID Qty: 20 6RF (DME) Accu-Chek Guide test strips Strip See Rx Instructions .Route Qty: 100 12RF Rx Instructions: test tid isosorbide mononitrate 60 mg tablet extended release 24 hr 60 mg PO DAILY Qty: 90 3RF Referrals / Follow Up: Felicita Hill DO [Primary Care Provider] - Within 2 Weeks Efraín Vila DO [Med Staff - Active Staff] - See Referral Note (Call tomorrow to schedule an appointment to be seen within the next 2 to 3 months) Disposition Disposition (needs filled in before D/C Order can be placed): Home, Self Care Charges/Coding Visit Charges Inpatient E&M: 96680 Disch Hosp
--- NOTE | 2023-05-12 15:40 | PHA.DC.MC.R ---
Pharmacy [facility] has performed discharge medication reconciliation and counseling for this patient. The patient's discharge medication list was reviewed for discrepancies and discrepancies were resolved. The patient was counseled on the following discharge medications and changes in medications for homegoing were reviewed. The Reason for Use, instructions for use, and potential side effects were reviewed for all new medications. The patient's questions regarding all of their medications were answered. 1. Dicyclomine 10 mg PO TID PRN abdominal cramping/spasms The patient was able to verbally demonstrate an understanding of their discharge medications. Medications at Discharge Home Medications aspirin 81 mg tablet,delayed release 81 mg PO DAILY@0800 10/12/18 meclizine 25 mg tablet 25 mg PO TID PRN PRN Dizziness 07/14/20 calcium carbonate 200 mg calcium (500 mg)-vitamin D3 400 unit tablet 1 tab PO BID 08/26/20 insulin syringe-needle U-100 0.3 mL 31 gauge x 5/16 (BD Insulin Syringe Ultra-Fine) #120 ea 11/24/21 flash glucose sensor (FreeStyle To 2 Sensor kit) #2 ea 05/14/22 albuterol sulfate 90 mcg/actuation aerosol inhaler (Ventolin HFA) 2 puff inhalation Q6H PRN shortness of breath or wheezing 07/15/22 omeprazole 40 mg capsule,delayed release 40 mg PO DAILY #90 caps 08/05/22 duloxetine 30 mg capsule,delayed release 30 mg PO BID #180 caps 08/07/22 oxybutynin chloride 10 mg tablet,extended release 24 hr 10 mg PO DAILY #90 tabs 08/07/22 nitroglycerin 0.4 mg sublingual tablet 0.4 mg sublingual Q5-15M PRN chest pain #25 tabs 08/12/22 lancets 28 gauge (Comfort EZ Lancets) #100 ea 09/03/22 rosuvastatin 40 mg tablet 40 mg PO DAILY cholestrol #90 tabs 10/12/22 anastrozole 1 mg tablet 1 mg PO DAILY #90 tabs 12/22/22 carvedilol 6.25 mg tablet 6.25 mg PO BID #180 tabs 12/22/22 bupropion HCl 150 mg tablet,12 hr sustained-release (Wellbutrin SR) 150 mg PO DAILY 02/04/23 ondansetron 4 mg disintegrating tablet 4 mg PO Q6H PRN nausea and vomiting #12 tabs 02/15/23 fluticasone 250 mcg-salmeterol 50 mcg/dose blistr powdr for inhalation 1 ea inhalation BID PRN shortness of breath or wheezing 02/19/23 trazodone 100 mg tablet 200 mg PO QHS 02/19/23 Novolog U-100 Insulin aspart 100 unit/mL subcutaneous solution (insulin aspart U-100) 20 unit (0.2 mL) subcut TID #20 mL 03/15/23 blood sugar diagnostic (Accu-Chek Guide test strips) #100 ea 03/15/23 isosorbide mononitrate 60 mg tablet,extended release 24 hr 60 mg PO DAILY #90 tabs 05/04/23 insulin syringe-needle U-100 0.3 mL 31 gauge x 5/16 (BD Insulin Syringe Ultra-Fine) #200 ea 05/07/23 insulin glargine 100 unit/mL subcutaneous solution (Lantus U-100 Insulin) 40 unit subcut QHS 05/11/23 dicyclomine 10 mg capsule 10 mg PO TIDAC PRN abdominal pain/Cramping #90 caps 05/12/23
== END 2023-05-12 15:59 | disposition home or self-care (01) ==
LOC: ED 22:08 → MS3 22:31
PROVIDERS: Internal Medicine Gastroenterology; Admitting Provider Hospitalist; Emergency Provider Emergency Medicine; PCP Family Medicine; Visit Provider Internal Medicine
PROC: 0DJD8ZZ Inspection of Lower Intestinal Tract, Via Natural or Artificial Opening Endoscopic (ICD-10-PCS; CPT 45378; principal; 2023-05-12 06:30)
DX: K52.9 Noninfective gastroenteritis and colitis, unspecified (principal); E11.65 Type 2 diabetes mellitus with hyperglycemia; E11.40 Type 2 diabetes mellitus with diabetic neuropathy, unspecified; Z79.4 Long term (current) use of insulin; K62.5 Hemorrhage of anus and rectum; E66.9 Obesity, unspecified; Z79.82 Long term (current) use of aspirin; I25.10 Atherosclerotic heart disease of native coronary artery without angina pectoris; F41.9 Anxiety disorder, unspecified; I10 Essential (primary) hypertension; Z79.811 Long term (current) use of aromatase inhibitors; J45.909 Unspecified asthma, uncomplicated; E78.00 Pure hypercholesterolemia, unspecified; M79.7 Fibromyalgia; I25.5 Ischemic cardiomyopathy; K21.9 Gastro-esophageal reflux disease without esophagitis; Z79.899 Other long term (current) drug therapy; Z68.35 Body mass index [BMI] 35.0-35.9, adult
CPT/HCPCS: 45380; 36415; 74177; 80048; 80076; 82274; 82962; 85014; 85018; 85025; 85610; 85730; 88305; 93005; 96361; 96374; 96375; 96376; 99221; 99284; J7030; J7120; Q9967; A4216; G0378; J2405

== ENCOUNTER → 2023-05-19 | Outpatient (CLI) | payer MEDICARE, SELFPAY ==
[2023-01-05 11:47] VITALS: BMI 35.9
[2023-05-19 17:40] LABS: Hemoglobin 13.4 g/dL (12.0-15.0); Mean Corp Hgb Conc 31.9 g/dL (32-36); Mean Corpuscular Hgb 28.9 pg (27.0-32.0); Mean Corpuscular Volume 90.5 fL (81-99); Mean Platelet Vol. 11.7 fl (6.2-12.0); Platelet Count 361 K/mm3 (150-450); RBC Distribution Width CV 12.7 % (11.6-14.6); RBC Distribution Width SD 41.6 fl (35.1-43.9); Red Blood Count 4.64 M/mm3 (4.2-5.4); White Blood Count 8.6 K/mm3 (4.4-11.0)
== END | disposition home or self-care (01) ==
LOC: MFPLAB 14:07
PROVIDERS: PCP Family Medicine; Visit Provider Nurse Practitioner Family
DX: K62.5 Hemorrhage of anus and rectum (principal)
CPT/HCPCS: 36415; 85027

== ENCOUNTER 2023-05-25 11:00 | Outpatient (RCR) | payer MEDICARE, SELFPAY ==
[2023-01-05 11:47] VITALS: BMI 35.9
--- NOTE | 2023-04-22 15:42 | HP.OTEVAL ---
Patient's Visit Information Visit Information Visit Information: ANGEL ALMODOVAR is a 63 year old F, referred to Occupational Therapy by Dr. Alek Mims DO, with a diagnosis of left distal radius fx Intraarticular fx.. Date of Evaluation: 04/22/23 Occupational Therapist: JOANNE Ham/Taina, CHT Subjective Subjective: This 63 year old female was seen for OT eval with dx of intraarticular fx left lower end. Pt states she fell on 02/15/23 over dog ball- went to ER and than was able to get into ortho on 02/23/23 when wrist was reduced. pt states she was casted until 2022. pt states she was given a brace but only wore for one day. pt arrives 2 weeks out of cast from left wrist fx. pt is right handed pt is retired from [employer] pt states the limited left forearm and wrist fingers stops her from doing all ADLs and IADLs. Pain left wrist/hand: Current Pain Intensity: 7 Pain Intensity Range: 4 and 9 ROM Forearm: right sup/pron left sup to neutral pronation painful but able to get WFL Wrist: right 65/60 left 35/30 MP: left IF 0/65 MF 0/60 RF 0/50 LF 0/35 PIP: left IF 0/70 MF 0/65 RF 0/70 LF 0/70 ROM Comments: pt demo with limited ability to form a composite fist with left hand- this increases need of assistance for daily bilateral hand task. right composite fist tight and WNL Strength Director Of Rehabilitation And Wellness: right 10# Left NT Lateral Pinch: right 4# left NT Tripod Pinch: right 2# left NT Sensation Thumb: right 3.61 left 3.61 Index: right 3.61 left 3.84 Middle: right 3.84. left 4.56 Ring: right 3.61 left 6.65 Little: right 3.61. left 6.65 Sensation Comments: pt states pins and needles of left RF and LF left sensation loss ulnar nerve distribution wrist to LF/RF Quick DASH-Disab of Arm,Shoulder& Hand Quick DASH Score: 61.3625 Goals Goal:: pt will demo a increase in left denture contour wire specialist strength to 20# or greater to increase pts ind with ADLs and iADls by d.c Goal:: pt will demo a increase in left forearm supination to 50* or greater to increase pts ind. with ADLs and IADLs by d.c pt will demo a increase in left wrist flex/ext by 20* or greater to increase pts ind. with ADLs and IADLS by d/c pt will demo the ability to form a left tight composite fist to grasp small and med. size objects by katelynnc. Goal:: pt will report no pain greater than 3/10 with use of left hand with ADLs and IADls by d/c Goal:: pt will test with monofilaments at 3.61 or less indication of return of sensation by d.c Rehabilitation General Assessment: pt arrives 2 weeks from having cast removed and demo with limited forearm supination/painful pronation along with limited left wrist and digit ROM- pt demo with ulnar nerve involvement limiting sensation to ulnar side of left palm and LF /RF . Due to loss of ROM strength and pain pt needs assistance with all ADLs and IADls. Pt would benefit from skilled OT services 1-2x week for 6 weeks. Pt demo understanding and agrees to POC. Rehabilitation Potential: Good Anticipated Interventions Anticipated Interventions: A/AAROM/PROM, Strengthening, Modalities, Orthoses, Fine Motor Coord/Devendra, Education re Diagnosis and Home Program Visit Plan Frequency: 1-2x /Week Duration: 6 Weeks TEXT: Thank you for the opportunity to evaluate your patient. For Medicare and Medicare HMO plans, please review the plan of care and approve it. It will need to be FAXED BACK to us at [phone] for Medicare purposes. Please let me know if there are questions or concerns regarding this plan of care. Physician Signature: Date:
== END 2023-05-25 19:00 | disposition home or self-care (01) ==
LOC: OT 11:00
PROVIDERS: PCP Family Medicine; Referring Provider Orthopaedic Surgery; Visit Provider Orthopaedic Surgery
DX: S52.572D Other intraarticular fracture of lower end of left radius, subsequent encounter for closed fracture with routine healing (principal)
CPT/HCPCS: 97110; 97166; 97167; 97530

== ENCOUNTER → 2023-05-26 | Outpatient (CLI) | payer MEDICARE, SELFPAY ==
[2023-01-05 11:47] VITALS: BMI 35.9
--- NOTE | 2023-05-26 13:59 | BI_ITS ---
MAMMOGRAPHY - BILATERAL SCREENING REASON FOR EXAM: Female, 63 years old. Routine annual screening examination. PERTINENT HISTORY: Personal history of breast cancer. History of prior left lumpectomy with radiation treatment. Sisters with breast cancer. Mother with breast cancer. Grandmother with breast cancer. Aunt with breast cancer. TECHNIQUE: Digital bilateral breast brigette (3D mammographic acquisition) in the CC and MLO projections. 2-D mediolateral oblique (MLO) and craniocaudad (CC) views of both breasts were obtained. CAD: Full Field Digital Mammography with Computer Added Detection was performed. COMPARISON: Comparison is made with prior examination dated November 05, 2021 and November 04, 2020. FINDINGS: Breast Composition: The breasts are heterogeneously dense, which may obscure small masses. There are no dominant masses or suspicious calcifications. Once again, the patient is status post lumpectomy in the deep upper portion of the left breast with residual postoperative scarring and skin thickening and dystrophic calcification at the operative site. The dystrophic calcification has become more dense as compared to prior study. No other significant abnormalities are identified. There has been no significant change since the prior study. BI/SCRN MAMM (CAD)W/BRIGETTE BILAT IMPRESSION: Stable bilateral screening mammogram. Yearly follow-up mammogram recommended. (A) ASSESSMENT CATEGORY: BIRADS Category 2: Benign. A letter regarding these results will be sent to the patient by the facility within 30 days. Approximately 10% of breast cancers are not detected by mammography. A normal mammogram should not delay biopsy of a clinically suspicious abnormality. [id number] Electronically Signed: Jay Guzmán MD at 15:14 EDT ,
== END | disposition home or self-care (01) ==
LOC: OPBI 13:58
PROVIDERS: PCP Family Medicine; Referring Provider Internal Medicine Hematology & Oncology; Visit Provider Internal Medicine Hematology & Oncology
DX: Z12.31 Encounter for screening mammogram for malignant neoplasm of breast (principal); Z85.3 Personal history of malignant neoplasm of breast; Z80.3 Family history of malignant neoplasm of breast
CPT/HCPCS: 77063; 77067

== ENCOUNTER 2023-11-04 09:39 | Emergency (ER) | payer MEDICARE, SELFPAY ==
[2023-01-05 11:47] VITALS: BMI 35.9
[2023-11-04] VITALS (18 sets, daily range): BP systolic 118–153; BP diastolic 70–118; PULSE 67–80; RESP 16–22; TEMP 36.2–37.2; O2SAT 91–97
--- NOTE | 2023-11-04 09:57 | EX.ED.DYSGE1 ---
HPI History of Present Illness Chief Complaint: Abd Pain Informant: patient Narrative Narrative: Patient presents secondary to right lower quadrant abdominal pain. She reports cough and congestion for the past week. Although she is audibly wheezing as I enter the room she denies feeling significant short of breath or noticing wheezing at home. She has not been using her inhalers more than normal. She states that this morning she developed right lower quadrant pain that is rather severe. She has had some diarrhea as well. She has past surgical history of hysterectomy as well as cholecystectomy. [facility] Medical History (Updated 11/04/23 @ 13:[address] Renae Marinelli MD) Abdominal wall strain Abnormal mammogram Anxiety Asthma Atherosclerosis of coronary artery of [place] heart without angina pectoris Bilateral hip pain Bilateral knee pain Cancer Cardiology follow-up encounter Cast in place on extremity Chronic suprapubic pain Colitis COPD (chronic obstructive pulmonary disease) Depression Diabetes mellitus type 2 in obese Dietary restriction Essential (primary) hypertension Fibromyalgia GERD (gastroesophageal reflux disease) History of edema History of Holter monitoring History of stress test Hyperlipidemia Insulin dependent diabetes mellitus Ischemic cardiomyopathy Learning disabilities Memory loss Noncompliance with diabetes treatment Obesity Open wound Osteoarthritis Polyarthropathy Rheumatoid arthritis STEMI (ST elevation myocardial infarction) (10/10/18) Strep pharyngitis Syncope Type 2 diabetes mellitus Urinary incontinence Wears glasses Wears hearing aid Home Medications aspirin 81 mg tablet,delayed release 81 mg PO DAILY@0800 10/12/18 [Rx Last Taken 05/11/23] meclizine 25 mg tablet 25 mg PO TID PRN PRN Dizziness 07/14/20 [History Last Taken 05/10/23] calcium carbonate 200 mg calcium (500 mg)-vitamin D3 400 unit tablet 1 tab PO BID 08/26/20 [History Last Taken 05/11/23] insulin syringe-needle U-100 0.3 mL 31 gauge x 5/16 (BD Insulin Syringe Ultra-Fine) #120 ea 11/24/21 [Rx Last Taken Unknown] albuterol sulfate 90 mcg/actuation aerosol inhaler (Ventolin HFA) 2 puff inhalation Q6H PRN shortness of breath or wheezing 07/15/22 [History Last Taken 05/04/23] omeprazole 40 mg capsule,delayed release 40 mg PO DAILY #90 caps 08/05/22 [Rx Last Taken 05/12/23] duloxetine 30 mg capsule,delayed release 30 mg PO BID #180 caps 08/07/22 [Rx Last Taken 05/11/23] nitroglycerin 0.4 mg sublingual tablet 0.4 mg sublingual Q5-15M PRN chest pain #25 tabs 08/12/22 [Rx Last Taken Unknown] lancets 28 gauge (Comfort EZ Lancets) #100 ea 09/03/22 [Rx Last Taken Unknown] anastrozole 1 mg tablet 1 mg PO DAILY #90 tabs 12/22/22 [Rx Last Taken 05/11/23] carvedilol 6.25 mg tablet 6.25 mg PO BID #180 tabs 12/22/22 [Rx Last Taken 05/11/23] bupropion HCl 150 mg tablet,12 hr sustained-release (Wellbutrin SR) 150 mg PO DAILY 02/04/23 [History Last Taken 05/11/23] ondansetron 4 mg disintegrating tablet 4 mg PO Q6H PRN nausea and vomiting #12 tabs 02/15/23 [Rx Last Taken 05/11/23] fluticasone 250 mcg-salmeterol 50 mcg/dose blistr powdr for inhalation 1 ea inhalation BID PRN shortness of breath or wheezing 02/19/23 [History Last Taken Unknown] trazodone 100 mg tablet 200 mg PO QHS 02/19/23 [History Last Taken 05/11/23] Novolog U-100 Insulin aspart 100 unit/mL subcutaneous solution (insulin aspart U-100) 20 unit (0.2 mL) subcut TID #20 mL 03/15/23 [Rx Last Taken 05/12/23] isosorbide mononitrate 60 mg tablet,extended release 24 hr 60 mg PO DAILY #90 tabs 05/04/23 [Rx Last Taken 05/11/23] insulin syringe-needle U-100 0.3 mL 31 gauge x 5/16 (BD Insulin Syringe Ultra-Fine) #200 ea 05/07/23 [Rx Last Taken Unknown] dicyclomine 10 mg capsule 10 mg PO TIDAC PRN abdominal pain/Cramping #90 caps 05/12/23 [Rx Last Taken Unknown] tramadol 50 mg tablet 50 mg PO Q8H PRN pain #21 tabs 05/19/23 [Rx Last Taken Unknown] insulin glargine 100 unit/mL subcutaneous solution (Lantus U-100 Insulin) 42 unit subcut QHS 05/27/23 [History Last Taken Unknown] oxybutynin chloride 10 mg tablet,extended release 24 hr 20 mg PO DAILY 05/27/23 [History Last Taken Unknown] lubiprostone 8 mcg capsule (Amitiza) 8 mcg PO BID #60 caps 06/23/23 [Rx Last Taken Unknown] blood-glucose meter (Accu-Chek Guide Glucose Meter) #1 ea 07/01/23 [Rx Last Taken Unknown] blood sugar diagnostic (Accu-Chek Guide test strips) #100 ea 08/30/23 [Rx Last Taken Unknown] flash glucose sensor (FreeStyle To 2 Sensor kit) #2 ea 09/08/23 [Rx Last Taken Unknown] rosuvastatin 40 mg tablet 40 mg PO DAILY cholestrol #90 tabs 09/09/23 [Rx Last Taken Unknown] oxycodone 5 mg tablet 5 mg PO Q8H PRN pain 3 days #10 tabs 11/04/23 [Rx Last Taken Unknown] prednisone 20 mg tablet 40 mg (2 x 20 mg) PO DAILY #8 tabs 11/04/23 [Rx Last Taken Unknown] Allergy/AdvReac Type Severity Reaction Status Date / Time egg Allergy Severe Anaphylaxis Verified 11/04/23 09:40 fish derived Allergy Severe Unknown Verified 11/04/23 09:40 nitrofurantoin Allergy Severe Anaphylaxis Verified 11/04/23 09:40 macrocrystalline [From Macrodantin] calcium carbonate AdvReac Severe unknown Verified 11/04/23 09:40 [From Florical] codeine AdvReac Severe unknown Verified 11/04/23 09:40 oxycodone HCl [From Percocet] AdvReac Severe unknown Verified 11/04/23 09:40 propoxyphene napsylate AdvReac Severe unknown Verified 11/04/23 09:40 [From Darvocet-N 100] sodium fluoride AdvReac Severe unknown Verified 11/04/23 09:40 [From Florical] Sulfa (Sulfonamide AdvReac Severe Hives Verified 11/04/23 09:40 Antibiotics) tamoxifen AdvReac Severe Hives Verified 11/04/23 09:40 dulaglutide [From Trulicity] AdvReac Intermediate Diarrhea Verified 11/04/23 09:40 glimepiride AdvReac Intermediate Diarrhea Verified 11/04/23 09:40 morphine AdvReac Other Verified 11/04/23 09:40 Family History Sister Heart disease Breast cancer Asthma Depression Mother Diabetes Heart disease Breast cancer Arthritis Father Diabetes Heart disease Arthritis Unknown No problems noted. Brother Arthritis Surgical History H/O breast surgery History of coronary artery stent placement (10/10/18) History of hysterectomy History of left heart catheterization (LHC) (03/15/19) History of lumpectomy of left breast Hx of cholecystectomy Social History Smoking Status: Never smoker alcohol intake: never substance use type: does not use caffeine: No what type of physical activity do you participate in: walking, aerobics and weight training ROS ROS ED Constitutional Constitutional ED: Denies chills or fever(s) Eyes Eyes: Denies discharge from eye(s) ENT ENT ED: Denies discharge from eye(s), rhinorrhea or sore throat Cardiovascular Cardiovascular: Denies chest pain Respiratory/Chest Respiratory/Chest: Reports cough; Denies dyspnea Gastrointestinal Gastrointestinal: Reports diarrhea; Denies abdominal pain, nausea or vomiting Genitourinary Genitourinary ED: Denies dysuria Musculoskeletal Musculoskeletal: Denies back pain or extremity pain Integumentary Denies Abrasions or rash Neurologic Neurologic: Denies headache(s) or weakness Allergic/Immunologic Allergic/Immunologic ED: Denies lip swelling or urticaria EXAM Physical Exam Const Vital Signs: 11/04/23 09:39 11/04/23 10:04 11/04/23 10:04 Temperature 99 F Temperature Source Temporal Pulse Rate 80 74 Respiratory Rate 16 22 H Respiratory Pattern Tachypnea Blood Pressure 153/99 H Blood Pressure Mean 117 Pulse Ox 97 96 Oxygen Delivery Method Room Air Room Air 11/04/23 10:27 11/04/23 10:30 11/04/23 10:45 Temperature Temperature Source Pulse Rate Respiratory Rate Respiratory Pattern Blood Pressure 132/77 H 132/82 H Blood Pressure Mean 95 97 Pulse Ox 94 94 93 Oxygen Delivery Method 11/04/23 11:00 11/04/23 11:15 11/04/23 11:30 Temperature Temperature Source Pulse Rate Respiratory Rate Respiratory Pattern Blood Pressure 124/79 H 124/71 H Blood Pressure Mean 93 87 Pulse Ox 91 91 92 Oxygen Delivery Method 11/04/23 11:31 Temperature Temperature Source Pulse Rate Respiratory Rate Respiratory Pattern Blood Pressure 135/79 H Blood Pressure Mean 96 Pulse Ox Oxygen Delivery Method Positive well nourished and well developed General Appearance ED: well developed HEENT Reports moist mucous membranes Eyes EOMs intact bilaterally Chest Wall inspection of chest normal and palpation of chest normal Resp normal respiratory effort Resp Narrative: Expiratory wheezes bilaterally. Cardio regular rate and regular rhythm GI GI Narrative: Abdomen soft with moderate tenderness to the right lower quadrant. Extremity normal to inspection Neuro oriented x3 and no sensory deficits noted Motor Exam: strength 5/5 throughout Psych mental status grossly normal Skin no rashes or lesions noted MDM MDM MDM Narrative Medical decision making narrative: IV line established. Patient given Dilaudid and Zofran which she has tolerated in the past. Labwork obtained to evaluate for leukocytosis, anemia, and electrolyte derangement. Urinalysis obtained to evaluate for infection/hematuria. CT scan of the abdomen pelvis with IV contrast will be obtained to evaluate for colitis, appendicitis, renal colic. History & Record Review Discussion w/independent historian: Patient Lab Data Attestation: I reviewed the patient's lab results. Labs: Laboratory Results - last 24 hr 11/04/23 11/04/23 11/04/23 10:00 10:35 11:30 WBC 7.2 RBC 5.12 Hgb 14.2 Hct 43.1 MCV 84.2 MCH 27.7 MCHC 32.9 RDW Std Deviation 39.3 RDW Coeff of Sanjay 12.8 Plt Count 244 MPV 10.9 Immature Gran % (Auto) 0.400 Neut % (Auto) 67.2 Lymph % (Auto) 19.6 [place] % (Auto) 6.4 Eos % (Auto) 5.8 H Baso % (Auto) 0.6 Absolute Neuts (auto) 4.9 Absolute Lymphs (auto) 1.42 Nucleated RBC % 0 Sodium Cancelled 137 Potassium Cancelled 4.8 Chloride Cancelled 110 H Carbon Dioxide Cancelled 24.0 Anion Gap Cancelled 3 L BUN Cancelled 20 H Creatinine Cancelled 0.97 Estim Creat Clear Calc Cancelled Est GFR (MDRD) Af Amer Cancelled 74 Est GFR (MDRD) Non-Af Cancelled 61 BUN/Creatinine Ratio Cancelled 20.6 H Glucose Cancelled 199 H Lactic Acid 1.2 Calcium Cancelled 8.3 L Urine Color Straw Urine Clarity Clear Urine pH 5.0 Ur Specific [place] 1.015 Urine Protein Negative Urine Glucose (UA) Normal Urine Ketones Negative Urine Occult Blood Negative Urine Nitrite Negative Urine Bilirubin Negative Urine Urobilinogen Normal Ur Leukocyte Esterase 25 H Urine RBC 0 SEEN Urine WBC 0-5 SEEN Ur Squamous Epith Cells 0-5 SEEN Urine Bacteria 0 SEEN Urine Mucus 0 SEEN Radiography Diagnostic Testing: Clinical Impression(s) from Imaging Studies Chest X-Ray 11/04/23 10:15 IMPRESSION: No acute abnormality is seen. Electronically Signed: Jay Guzmán MD at 10:40 EDT , Abdomen/Pelvis CT 11/04/23 11:48 IMPRESSION: Fluid and fecal material is seen throughout the colon. Status post cholecystectomy and hysterectomy. Electronically Signed: Jay Guzmán MD at 12:12 EDT , Treatment and Re-Evaluation :: CBC was a white count of 7.2 with a hemoglobin of 14.2. Normal differential noted. Chemistry studies remarkable only for glucose of 199. Renal function is normal. Lactic acid is normal at 1.2. Urinalysis reveals no evidence of infection. Chest x-ray per my interpretation reveals no evidence of focal infiltrate. Radiology interpretation reviewed and agrees. CT scan of the abdomen and pelvis reveals fluid and fecal material throughout the colon. No evidence of acute infection. On repeat evaluation patient resting more comfortably. I will give her a course of prednisone to help with her COPD exacerbation. I do not feel she needs antibiotics at this time. Patient does have evidence of viral gastroenteritis. I advised her she would likely have loose stools for the next several days. I think she likely has a abdominal wall muscle strain from her harsh coughing leading to much of her right-sided abdominal pain. Discharge Plan Triage Chief Complaint: Abd Pain ED Provider: Renae Marinelli Dx/Rx/DC Orders Clinical Impression: Viral syndrome, COPD exacerbation Instructions: ED COPD Flare, ED Viral Syndrome (Adult) Prescriptions: New oxycodone 5 mg tablet 5 mg PO Q8H PRN (Reason: pain) 3 Days Qty: 10 0RF prednisone 20 mg tablet 40 mg PO DAILY Qty: 8 0RF No Action calcium carbonate 200 mg calcium (500 mg)-vitamin D3 400 unit tablet 200 mg (500 mg) -400 unit tablet 1 tab PO BID (DME) insulin syringe-needle U-100 [BD Insulin Syringe Ultra-Fine] 0.3 mL 31 gauge x 5/16 syringe See Rx Instructions .ROUTE .MEDSUPPLY Qty: 120 8RF Rx Instructions: 4 times daily albuterol sulfate [Ventolin HFA] 90 mcg/actuation HFA aerosol inhaler 2 puff inhalation Q6H PRN (Reason: shortness of breath or wheezing) oxybutynin chloride 10 mg tablet extended release 24hr 20 mg PO DAILY bupropion HCl [Wellbutrin SR] 150 mg tablet sustained-release 12 hr 150 mg PO DAILY (DME) insulin syringe-needle U-100 [BD Insulin Syringe Ultra-Fine] 0.3 mL 31 gauge x 5/16 syringe See Rx Instructions .Route Qty: 200 6RF Rx Instructions: 4 times per day tramadol 50 mg tablet 50 mg PO Q8H PRN (Reason: pain) Qty: 21 0RF aspirin 81 MG tablet 81 mg PO DAILY@0800 0RF meclizine 25 MG tablet 25 mg PO TID PRN PRN (Reason: Dizziness) ondansetron 4 mg tablet,disintegrating 4 mg PO Q6H PRN (Reason: nausea and vomiting) Qty: 12 0RF fluticasone propion-salmeterol 250-50 mcg/dose blister with device 1 ea INHALATION BID PRN (Reason: shortness of breath or wheezing) trazodone 100 mg tablet 200 mg PO QHS dicyclomine 10 mg Capsule 10 mg PO TIDAC PRN (Reason: abdominal pain/Cramping) Qty: 90 0RF insulin glargine [Lantus U-100 Insulin] 100 unit/mL solution 42 unit subcut QHS omeprazole 40 mg capsule,delayed release(DR/EC) 40 mg PO DAILY Qty: 90 1RF duloxetine 30 mg capsule,delayed release(DR/EC) 30 mg PO BID Qty: 180 1RF nitroglycerin 0.4 mg tablet, sublingual 0.4 mg SUBLINGUAL Q5-15M PRN (Reason: chest pain) Qty: 25 5RF Rx Instructions: until response; do not exceed 3 doses per episode (DME) lancets [Comfort EZ Lancets] 28 gauge misc See Rx Instructions .Route Qty: 100 5RF Rx Instructions: 4x/day anastrozole 1 mg tablet 1 mg PO DAILY Qty: 90 3RF carvedilol 6.25 mg tablet 6.25 mg PO BID Qty: 180 3RF insulin aspart U-100 [Novolog U-100 Insulin aspart] 100 unit/mL solution 20 unit subcut TID Qty: 20 6RF isosorbide mononitrate 60 mg tablet extended release 24 hr 60 mg PO DAILY Qty: 90 3RF lubiprostone [Amitiza] 8 mcg capsule 8 mcg PO BID Qty: 60 2RF (DME) blood-glucose meter [Accu-Chek Guide Glucose Meter] Misc See Rx Instructions .Route Qty: 1 0RF Rx Instructions: As directed (DME) Accu-Chek Guide test strips Strip See Rx Instructions .Route Qty: 100 12RF Rx Instructions: test tid (DME) FreeStyle To 2 Sensor Kit See Rx Instructions .Route Qty: 2 6RF Rx Instructions: As directed rosuvastatin 40 mg tablet 40 mg PO DAILY Qty: 90 3RF Primary Care Provider: Gaurav Deshpande Referrals: Gaurav Deshpande MD [Primary Care Provider] - 1 Week Felicita Hill DO [Med Staff - Explosives Detonator] - Disposition Disposition: Home, Self Care
[2023-11-04] MEDS: Ondansetron 4 MG/2 ML Vial IV (10:05)
[2023-11-04] MEDS: 0.9% Normal Saline (1000mL) 1,000 ML 150 ML IV (10:05)
[2023-11-04] MEDS: Ipratropium/Albuterol Sulfate 3 ML AMPUL.NEB INHALATION (10:05)
[2023-11-04] MEDS: HYDROmorphone 1 MG/ML Syringe 0.5 MG IV (10:12)
--- NOTE | 2023-11-04 10:15 | RAD_ITS ---
STUDY: X-RAY CHEST REASON FOR EXAM: Female, 63 years old. Cough TECHNIQUE: Single AP portable view of the chest. COMPARISON: None. FINDINGS: The lungs are clear and expanded. There is no demonstrated pleural abnormality. Normal size heart. Normal mediastinum and oj. Normal visualized pulmonary arteries. Normal visualized aortic arch and descending thoracic aorta. There are diffuse degenerative changes of the visualized thoracic spine. Normal visualized ribs, clavicles, and shoulders. There is no demonstrated abnormality of the visualized soft tissue structures of the upper abdomen. RAD/Chest 1 View (Portable) IMPRESSION: No acute abnormality is seen. Electronically Signed: Jay Guzmán MD at 10:40 EDT ,
[2023-11-04 10:25] LABS: Absolute Lymphocyte Count 1.42 X10^3/uL (0.83-4.51); Absolute Neutrophil Count 4.9 X10^3/uL (2.0-7.7); Basophil# 0.04 X10^3/uL; Basophil% 0.6 % (0-1); Eosinophil# 0.42 X10^3/uL; Eosinophils% 5.8 % (0-5); Hematocrit 43.1 % (37-47); Hemoglobin 14.2 g/dL (12.0-15.0); Lymphocyte # 1.42 X10^3/ul (0.83-4.51); Lymphocyte % 19.6 % (19-41); Mean Corp Hgb Conc 32.9 g/dL (32-36); Mean Corpuscular Hgb 27.7 pg (27.0-32.0); Mean Corpuscular Volume 84.2 fL (81-99); Mean Platelet Vol. 10.9 fl (6.2-12.0); Monocyte# 0.46 X10^3/uL; Monocyte% 6.4 % (0-10); NRBC Flagged by Analyzer 0 % (0-5); Neutrophil # 4.86 X10^3/uL (2.7-7.7); Neutrophil % 67.2 % (47-70); Platelet Count 244 K/mm3 (150-450); RBC Distribution Width CV 12.8 % (11.6-14.6); RBC Distribution Width SD 39.3 fl (35.1-43.9); Red Blood Count 5.12 M/mm3 (4.2-5.4); White Blood Count 7.2 K/mm3 (4.4-11.0)
[2023-11-04 10:44] LABS: Lactic Acid 1.2 mmol/L (0.4-1.9)
[2023-11-04 10:53] LABS: Anion Gap 3 (5-15); BUN 20 mg/dL (7-18); BUN/Creat Ratio 20.6 RATIO (10-20); Calcium,Total 8.3 mg/dL (8.5-10.1); Chloride 110 mmol/L (98-107); Creatinine, Serum 0.97 mg/dL (0.55-1.02); EST Glomerular Filtration Rate 61 mL/min (>60); Est Glom Filt Rate - Afr Amer 74 mL/min (>60); Glucose 199 mg/dL (74-106); Potassium 4.8 mmol/L (3.5-5.1); Sodium Level 137 mmol/L (136-145)
[2023-11-04 11:34] LABS: Bacteria 0 SEEN /hpf (None Seen); Mucous, Urine 0 SEEN /hpf (<or=2+); Red Blood Cells-Urine 0 SEEN /hpf (0-5)
[2023-11-04 11:44] LABS: Color, Urine Straw (Yellow); Glucose, Dipstick Normal (Normal); Ketone-Dipstick Negative (Negative); Leukocyte Esterase-Dipstick 25 /ul (Negative); Nitrite-Dipstick Negative (Negative); Occult Blood-Urine Negative /ul (Negative); Protein-Dipstick Negative (Negative); Specific Gravity, Urine 1.015 (1.002-1.030); Urine Bilirubin Dipstick Negative (Negative); Urine Clarity Clear (Clear); Urine Urobilinogen Normal (Normal)
--- NOTE | 2023-11-04 11:48 | CT_ITS ---
STUDY: CT ABDOMEN AND PELVIS WITH CONTRAST REASON FOR EXAM: Female, 63 years old. RLQ pain RADIATION DOSAGE (If Supplied By Facility): CTDIvol = ( 13.82 ) mGy, DLP = ( 957.01 ) mGycm TECHNIQUE: Transaxial images were obtained from the dome of the diaphragm to the symphysis pubis without oral contrast. IV 100mL [id number]-[id number] was administered. Sagittal and coronal images were reconstructed. Individualized dose optimization techniques were used for this CT. COMPARISON: Comparison is made with prior study May 11, 2023. FINDINGS: Mild degree of increased markings in the anterior medial aspect of the right middle lobe as well as the lung bases suggestive of either linear scarring or atelectasis. Coronary artery calcification. Normal liver. There are surgical clips in the gallbladder fossa consistent with a prior cholecystectomy. Normal spleen. Normal pancreas. Normal bilateral adrenal glands. Normal right kidney. Normal left kidney. Normal visualized stomach. Normal small intestine. Fluid and fecal material is seen throughout the colon. No evidence of obstruction. There is non-visualization of the appendix. There is scattered atherosclerotic calcification of the abdominal aorta, without a demonstrated aneurysm. Normal inferior vena cava. Normal retroperitoneum. Normal urinary bladder. There is absence of the uterus consistent with a prior hysterectomy. Normal abdominal wall. There are mild degenerative changes of the visualized lumbar spine. CT/Abdomen/Pelvis W IV Cont ONLY IMPRESSION: Fluid and fecal material is seen throughout the colon. Status post cholecystectomy and hysterectomy. Electronically Signed: Jay Guzmán MD at 12:12 EDT ,
[2023-11-04 12:16] LABS: Squamous Epithelial Cells - UA 0-5 SEEN /hpf (5-10); White Blood Cells 0-5 SEEN /hpf (0-5)
[2023-11-04] MEDS: Dicyclomine 10 MG Capsule 20 MG PO (12:55)
[2023-11-04] MEDS: HYDROmorphone 0.5 MG/0.5 ML SYRINGE IV (12:55)
== END 2023-11-04 13:37 | disposition home or self-care (01) ==
PROVIDERS: Emergency Provider Emergency Medicine; PCP Family Medicine; Visit Provider Emergency Medicine
DX: J44.1 Chronic obstructive pulmonary disease with (acute) exacerbation (principal); E11.9 Type 2 diabetes mellitus without complications; B34.9 Viral infection, unspecified; R10.31 Right lower quadrant pain; R19.7 Diarrhea, unspecified; I25.10 Atherosclerotic heart disease of native coronary artery without angina pectoris
CPT/HCPCS: 71045; 74177; 80048; 81001; 83605; 85025; 87631; 96361; 96374; 96375; 99282; J7030; Q9967; J2405

== ENCOUNTER → 2024-01-07 | Outpatient (CLI) | payer MEDICARE, SELFPAY ==
[2023-01-05 11:47] VITALS: BMI 35.9
--- NOTE | 2024-01-07 08:09 | NM_ITS ---
CLINICAL: 63-year-old female with history of chronic nausea. SEMI-SOLID PHASE 99m Tc SULFUR COLLOID GASTRIC EMPTYING STUDY COMPARISON: CT of the abdomen-pelvis report 11/04/2023 FINDINGS: The patient was administered 1.1 mCi of 99m Tc sulfur colloid mixed with oatmeal and consumed per os. Image acquisitions in the anterior-posterior projections were obtained for 60 minutes. There is prompt visualization of the stomach. There is no gastroesophageal reflux identified. There is no subjective visualized emptying of the gastric contents. The T ? linear fit was not calculated, (Normal: 12-56 minutes). NM/Gastric Emptying Study IMPRESSION: 1. ABNORMAL 99m Tc sulfur colloid semi-solid phase (oatmeal) gastric emptying imaging examination. A. There is marked, severe delayed semi-solid phase gastric emptying compared to normal controls. (Monica et al, J Nucl Med Tech 38: 186, 2010). Electronically Signed: Neri Hinojosa DO at 13:31 EDT ,
== END | disposition home or self-care (01) ==
LOC: NM 08:05
PROVIDERS: PCP Family Medicine; Referring Provider Internal Medicine Gastroenterology; Visit Provider Internal Medicine Gastroenterology
DX: K59.09 Other constipation (principal)
CPT/HCPCS: 78264; A9541

== ENCOUNTER → 2024-01-28 | Outpatient (CLI) | payer MEDICARE, SELFPAY ==
[2023-01-05 11:47] VITALS: BMI 35.9
--- NOTE | 2024-01-28 07:41 | NM_ITS ---
CLINICAL: 43-year-old female with history of chronic nausea and an abnormal semisolid phase gastric emptying examination. SOLID PHASE 99m Tc SULFUR COLLOID GASTRIC EMPTYING STUDY COMPARISON: Semisolid phase gastric emptying study dated 01/07/2024 FINDINGS: The patient was administered 1.0 mCi of 99m Tc sulfur colloid mixed with macaroni and cheese and consumed per os. Image acquisitions in the anterior-posterior projections were obtained for 235 minutes following meal consumption. There is prompt visualization of the stomach. There is no gastroesophageal reflux identified. First order kinetics are maintained throughout the duration of the acquisitions. The T ? raw data emptying was calculated to be 157.54 minutes, (Normal 65-110 minutes). 73 % emptying and 27 % retention are defined at 4 hours post meal ingestion. NM/Gastric Emptying Study - 4 HR IMPRESSION: 1. ABNORMAL 99m Tc sulfur colloid solid phase gastric emptying imaging examination. A. There is abnormal solid phase gastric emptying compared to normal controls with maintained first order kinetics throughout all components of the examination. (Dedrick et al, Gastroenterology 77: 75, 1979 Hamilton et al, Semin Nucl Med 12: 116, 1981 Ne et al, SNM Procedure Guidelines Adult Solid Meal Gastric Emptying Study 3.0 [email or web address]). B. Greater than 10% retention of the initial gastric contents at 4 hours post dose is consistent with abnormal solid phase gastric emptying which correlates with the results of the T ? emptying calculation. (Selvin et al, J Nucl Med 48: 568, 2007). Electronically Signed: Neri Hinojosa DO at 9:17 EDT ,
== END | disposition home or self-care (01) ==
LOC: NM 07:38
PROVIDERS: PCP Family Medicine; Referring Provider Internal Medicine Gastroenterology; Visit Provider Internal Medicine Gastroenterology
DX: K59.00 Constipation, unspecified (principal)
CPT/HCPCS: 78264; A9541

== ENCOUNTER → 2024-04-11 | Outpatient (CLI) | payer MEDICARE, SELFPAY ==
[2023-01-05 11:47] VITALS: BMI 35.9
--- NOTE | 2024-04-11 13:57 | BI_ITS ---
MAMMOGRAPHY - BILATERAL DIAGNOSTIC REASON FOR EXAM: Female, 64 years old. Left breast pain for 3 weeks. PERTINENT HISTORY: Personal history of breast cancer. TECHNIQUE: Digital bilateral breast samira (3D mammographic acquisition) in the CC and MLO projections. 2-D mediolateral oblique (MLO) and craniocaudad (CC) views of both breasts were obtained. CAD: Full Field Digital Mammography with Computer Added Detection was performed. COMPARISON: Comparison is made with prior study May 26, 2023 and November 05, 2021. FINDINGS: Breast Composition: The breasts are heterogeneously dense, which may obscure small masses. Once again, the patient is status post lumpectomy in the deep upper lateral aspect of the left breast with resultant postoperative scarring and skin thickening with dystrophic calcification. There is been no change. No other significant abnormalities are identified. There has been no significant change since the prior study. BI/DIAG MAMM W/CAD, BILAT IMPRESSION: Stable bilateral diagnostic mammogram. One year follow-up recommended. (A) ASSESSMENT CATEGORY: BIRADS Category 2: Benign. A letter regarding these results will be sent to the patient by the facility within 30 days. Approximately 10% of breast cancers are not detected by mammography. A normal mammogram should not delay biopsy of a clinically suspicious abnormality. Electronically Signed: Jay Guzmán MD at 15:28 EDT ,
--- NOTE | 2024-04-11 13:57 | US_ITS ---
STUDY: ULTRASOUND BREAST - LEFT REASON FOR EXAM: Female, 64 years old. Pain in the left breast. TECHNIQUE: Axial and longitudinal images of the LEFT breast were performed with a high resolution ultrasound transducer. # OF IMAGES: 8 COMPARISON: Comparison is made with prior mammogram dated April 11, 2024. FINDINGS: LEFT Breast: The inferior medial aspect of the left breast was examined with ultrasound. There is heterogeneous fibroglandular tissue. No sonographic abnormality is seen. US/Breast Limited Unilateral IMPRESSION: No sonographic abnormality is seen. ASSESSMENT CATEGORY: BIRADS Category 1: Negative. A letter regarding these results will be sent to the patient by the facility within 30 days. Electronically Signed: Jay Guzmán MD at 12:31 EDT ,
== END | disposition home or self-care (01) ==
PROVIDERS: PCP Family Medicine; Referring Provider Nurse Practitioner Family; Visit Provider Nurse Practitioner Family
DX: N64.4 Mastodynia (principal)
CPT/HCPCS: 76642; 77062; 77066; G0279

== ENCOUNTER → 2024-06-14 | Outpatient (CLI) | payer MEDICARE, SELFPAY ==
[2023-01-05 11:47] VITALS: BMI 35.9
--- NOTE | 2024-06-14 06:49 | ECHOD_ITS ---
Reason For Study: DYSPNEA Procedure This was a 2D Doppler, Color Flow transthoracic echocardiogram. Myocardial strain analysis was performed in this exam to aid in the assessment of cardiac function. Exam performed in department. Left Ventricle Normal LV size. Left ventricular systolic function is normal. The left ventricular ejection fraction is 65 %. Stage 1 diastolic dysfunction. No regional wall motion abnormalities noted. Right Ventricle Normal RV size. Normal systolic function. Atria Normal left atrium. Normal right atrium. Mitral Valve Normal mitral valve. Tricuspid Valve Normal tricuspid valve. Mild tricuspid valve insufficiency. Pulmonary artery systolic pressure is 15 mmHg. Aortic Valve Trisinus/trileaflet aortic valve. Pulmonic Valve Normal pulmonic valve. Great Vessels Normal aortic root. The pulmonary artery is normal size. Normal inferior vena cava. Pericardium/Pleural No pericardial effusion. MMode/2D Measurements & Calculations LVIDd: 4.0 cm IVSd: 1.2 cm LVOT diam: 1.9 cm LVIDs: 2.2 cm LVPWd: 0.96 cm LVOT area: 2.8 cm2 RVDd: 3.2 cm FS: 46.2 % asc Aorta Diam: 3.3 cm LAV(MOD-bp): 29.7 ml LVAd ap4: 18.2 cm2 LAV(MOD-bp) Indexed: 17.3 ml/m2 LVLd ap4: 6.9 cm LAV(MOD-sp2): 30.9 ml EDV(MOD-sp4): 39.7 ml LAV(MOD-sp4): 28.8 ml EDV(sp4-el): 40.8 ml LVAs ap4: 8.9 cm2 LVLs ap4: 5.6 cm ESV(MOD-sp4): 13.1 ml ESV(sp4-el): 11.9 ml EF(MOD-sp4): 67.1 % EF(sp4-el): 70.9 % LVAd ap2: 14.3 cm2 SV(MOD-sp4): 26.7 ml SV(MOD-sp2): 18.1 ml LVLd ap2: 6.6 cm SI(MOD-sp4): 15.5 ml/m2 SI(MOD-sp2): 10.5 ml/m2 EDV(MOD-sp2): 27.6 ml EDV(sp2-el): 26.5 ml LVAs ap2: 7.3 cm2 LVLs ap2: 5.3 cm ESV(MOD-sp2): 9.5 ml ESV(sp2-el): 8.5 ml EF(MOD-sp2): 65.5 % SV(sp4-el): 28.9 ml Ao sinus diam: 3.[address] Junction: 2.4 cm LA dimension(2D): 3.4 cm LA A4 area: 13.4 cm2 RA A4 area: 12.1 cm2 TAPSE: 2.4 cm Time Measurements MV dec time: 0.19 sec Doppler Measurements & Calculations MV E max lyle: 74.2 cm/sec Lat Peak E' Lyle: 10.8 cm/sec Med Peak E' Lyle: 7.9 cm/sec MV A max lyle: 88.6 cm/sec E/E' lat: 6.9 E/E' med: 9.3 MV E/A: 0.84 MV dec slope: 394.1 cm/sec2 Ao V2 max: 138.9 cm/sec LV V1 max: 98.9 cm/sec Ao max P.7 mmHg LV V1 max P.9 mmHg Ao V2 mean: 95.4 cm/sec LV V1 mean P.0 mmHg Ao mean P.1 mmHg LV V1 mean: 66.2 cm/sec Ao V2 VTI: 32.3 cm LV V1 VTI: 23.4 cm AV (velocity ratio): 0.72 CARINA(I,D): 2.0 cm2 CARINA(V,D): 2.0 cm2 SV(LVOT): 65.2 ml PA V2 max: 90.1 cm/sec TR max lyle: 177.6 cm/sec TR max P.6 mmHg ECHO/Echo Complete Interpretation Summary Normal LV size. Left ventricular systolic function is normal. The left ventricular ejection fraction is 65 %. The global longitudinal strain = -19 % (normal). Stage 1 diastolic dysfunction. The global longitudinal strain is normal. The global longitudinal strain = -19 % (normal). Ordering Physician: Ania Mccall Referring Physician: Ania Mccall Performed By: Diya Quintero RDCS
--- NOTE | 2024-06-14 17:14 | STRESSREP ---
Stress Test Report Pharmacologic myocardial perfusion stress test. 64-year-old lady with a history of chest pain Resting EKG demonstrates sinus rhythm with a rate of 58 bpm. Resting blood pressure is 132/74 mmHg. 0.4 mg of regadenoson was infused per usual protocol followed by rapid intravenous saline flush injection. Continuous EKG monitoring was performed. The maximum heart rate was 77 bpm which was 49% of max impacted heart rate the maximum workload was 1 metabolic equivalent. At rest there were no ST or T wave changes noted to suggest ischemia and at peak infusion nonspecific ST changes were noted which did not meet the criteria for ischemia. No clinical angina is noted. The final blood pressure was 130/64 mmHg. Myocardial perfusion protocol. 11.8 mCi of technetium 99m sestamibi was injected at rest. 0.4 mg of regadenoson was infused per usual protocol. At peak infusion 36 point mCi of technetium 99m sestamibi was injected stress images were obtained stress and rest images were reconstructed and compared in the short axis vertical long and horizontal long axis. Gated images were also obtained. Perfusion SPECT analysis: Review of the stress images demonstrate normal uptake of tracer noted in all areas of the myocardium. The resting images similar demonstrated normal uptake of tracer noted in all areas of the myocardium. No areas of reversibility are noted to suggest ischemia and no previous infarct is noted. Gated SPECT analysis: The gated ejection fraction is 82%. Conclusion: Normal pharmacologic myocardial perfusion stress test. Preserved ejection fraction.
== END | disposition home or self-care (01) ==
LOC: CVS 06:47
PROVIDERS: PCP Family Medicine; Referring Provider Nurse Practitioner Gerontology; Visit Provider Nurse Practitioner Gerontology
DX: R07.9 Chest pain, unspecified (principal); R06.09 Other forms of dyspnea; Z95.5 Presence of coronary angioplasty implant and graft
CPT/HCPCS: 78452; 93017; 93306; A9500; A4216; J2785

== ENCOUNTER → 2024-09-26 | Outpatient (CLI) | payer MEDICARE, SELFPAY ==
[2023-01-05 11:47] VITALS: BMI 35.9
[2024-09-26 18:59] LABS: ALB/GLOB Ratio 1.3 RATIO (0.9-2.4); AST(SGOT) 22 U/L (<=31); Alanine Aminotransfer ALT/SGPT 18 U/L (<=34); Albumin, Serum 4.1 g/dL (3.4-4.8); Alkaline Phosphatase 57 U/L (35-104); Anion Gap 12 (5-15); BUN 18 mg/dL (4-19); Calcium 9.6 mg/dL (7.6-11.0); Carbon Dioxide 22.6 mmol/L (22.0-29.0); Chloride 102 mmol/L (96-108); Creatinine, Serum 0.8 mg/dL (0.6-1.0); EST Glomerular Filtration Rate 83 (>60); Globulin 3.1 g/dL (2.2-4.2); Glucose 189 mg/dL (70-99); Potassium 4.5 mmol/L (3.3-5.1); Protein, Total 7.1 g/dL (5.9-8.4); Sodium Level 137 mmol/L (133-145); Total Bilirubin 0.46 mg/dL (0.00-1.30)
[2024-09-27 12:56] LABS: Cholesterol 180 mg/dL (<=200); High Density Lipoprotein 68 mg/dL; Low Density Lipoprotein Calc. 91 mg/dL; Triglycerides 110 mg/dL; Very Low Density Lipoprotein 22 mg/dL (5-40); cholesterol:hdl ratio screen 2.67
== END | disposition home or self-care (01) ==
PROVIDERS: PCP Family Medicine; Visit Provider Physician Assistant Medical
DX: E78.00 Pure hypercholesterolemia, unspecified (principal); Z95.5 Presence of coronary angioplasty implant and graft; I10 Essential (primary) hypertension
CPT/HCPCS: 36415; 80053; 80061

== ENCOUNTER 2025-02-20 12:39 | Observation (INO) | payer MEDICARE, SELFPAY ==
[2023-01-05 11:47] VITALS: BMI 35.9
[2025-02-20] VITALS (13 sets, daily range): BP systolic 117–162; BP diastolic 61–92; PULSE 54–97; RESP 14–18; TEMP 36.6–37.1; O2SAT 27–99; BMI 38.1; BMI 36.6
--- NOTE | 2025-02-20 13:10 | RAD_ITS ---
PROCEDURE: CHEST 1 VIEW (PORTABLE) 02/20/2025 REASON FOR EXAM: CHEST PAIN TECHNIQUE: Frontal view of the chest. COMPARISON: November 04, 2023 FINDINGS: Heart size and mediastinal configuration are within normal limits. There is no focal infiltrate or consolidation. There is no pneumothorax or effusion. There is no acute bony abnormality. Aortic calcifications are visible. A surgical clip is noted in the left chest wall. RAD/Chest 1 View (Portable) IMPRESSION: No acute process is identified in the chest. Reading Location: [facility]
[2025-02-20 13:12] LABS: Hematocrit 41.7 % (37-47); Hemoglobin 14.0 g/dL (12.0-15.0); Immature Granulocytes Count 0.020 X10^3/uL (0.0-0.0); Mean Corp Hgb Conc 33.6 g/dL (32-36); Mean Corpuscular Volume 84.9 fL (81-99); Mean Platelet Vol. 11.0 fl (6.2-12.0); NRBC Flagged by Analyzer 0 % (0-5); Platelet Count 265 K/mm3 (150-450); RBC Distribution Width CV 12.7 % (11.6-14.6); RBC Distribution Width SD 39.1 fl (35.1-43.9); Red Blood Count 4.91 M/mm3 (4.2-5.4); White Blood Count 7.7 K/mm3 (4.4-11.0)
[2025-02-20] MEDS: Nitroglycerin SL (ED/IMG/CATH) 0.4 MG TABLET SL (13:15)
[2025-02-20 13:24] LABS: Prothrombin Time (Protime)PT. 12.4 SECONDS (11.7-14.9)
[2025-02-20 13:25] LABS: Partial Thromboplast Time 25.6 Seconds (24.1-36.2)
[2025-02-20 13:38] LABS: Anion Gap 12 (5-15); BUN 12 mg/dL (4-19); BUN/Creat Ratio 12.3 RATIO (10-20); Calcium,Total 9.5 mg/dL (7.6-11.0); Carbon Dioxide 21.9 mmol/L (21.0-32.0); Chloride 101 mmol/L (98-108); Estimated Creatinine Clearance 55.86 ml/min (50-250); Glucose 253 mg/dL (70-99); Potassium 4.7 mmol/L (3.3-5.1); Troponin T High Sensitivity < 6 ng/L (<=14)
--- NOTE | 2025-02-20 13:38 | ED.VIS.CHEST ---
HPI History of Present Illness Chief Complaint: Chest Pain Informant: patient and spouse/S.O. Narrative Narrative: Presents here spouse chest heaviness shortness of breath pain into her left axilla 20 minutes prior to arrival. Was going up 4 steps with symptoms recurred. This is persistent states 7 out of 10 pain. Took a nitroglycerin with no relief at this time. She took her morning baby aspirin. Had 2 stents placed 6 years ago followed [address] Dr. Olsen. Last seen a year ago. She has had stress test since her stents however no heart caths. Hypertension, hyperlipidemia, diabetes history. Denies tobacco. Denies recent travel or surgery or immobilizations. No history of PE or DVT. Prior Similar Symptoms: Yes and With Prior [place] CVD Risk Factors: Positive for Hypertension, Diabetes and Hypercholesterolemia; Negative for Family History 1' </=55 or Smoking PE Risk Factors: Negative for Recent Travel/Surgery, Recent Immobilization or Prior DVT or PE [facility] Medical History Fracture of distal end of radius with malunion History of ductal carcinoma in situ (DCIS) of left breast Pain of left breast Colitis Wears hearing aid Wears glasses Cancer Anxiety Insulin dependent diabetes mellitus Fibromyalgia Syncope Dietary restriction History of edema History of Holter monitoring History of stress test GERD (gastroesophageal reflux disease) Bilateral hip pain Bilateral knee pain Chronic suprapubic pain Urinary incontinence Polyarthropathy COPD (chronic obstructive pulmonary disease) Noncompliance with diabetes treatment Osteoarthritis Diabetes mellitus type 2 in obese Obesity Type 2 diabetes mellitus Depression Ischemic cardiomyopathy Abnormal mammogram Atherosclerosis of coronary artery of [place] heart without angina pectoris Essential (primary) hypertension Hyperlipidemia Asthma Memory loss Rheumatoid arthritis Learning disabilities STEMI (ST elevation myocardial infarction) (10/10/18) Home Medications ?Medication ?Instructions ?Recorded ?Last Taken ?Type aspirin 81 mg tablet,delayed 81 mg PO DAILY@0800 10/12/18 05/11/23 Rx release meclizine 25 mg tablet 25 mg PO TID PRN PRN Dizziness 07/14/20 05/10/23 History calcium carbonate 200 mg calcium 1 tab PO BID 08/26/20 05/11/23 History (500 mg)-vitamin D3 400 unit tablet insulin syringe-needle U-100 0.3 #120 ea 11/24/21 Unknown Rx mL 31 gauge x 5/16 (BD Insulin Syringe Ultra-Fine) omeprazole 40 mg capsule,delayed 40 mg PO DAILY #90 caps 08/05/22 05/12/23 Rx release duloxetine 30 mg capsule,delayed 30 mg PO BID #180 caps 08/07/22 05/11/23 Rx release lancets 28 gauge (Comfort EZ #100 ea 09/03/22 Unknown Rx Lancets) bupropion HCl 150 mg tablet,12 hr 150 mg PO DAILY 02/04/23 05/11/23 History sustained-release (Wellbutrin SR) ondansetron 4 mg disintegrating 4 mg PO Q6H PRN nausea and 02/15/23 05/11/23 Rx tablet vomiting #12 tabs trazodone 100 mg tablet 200 mg PO QHS 02/19/23 05/11/23 History insulin syringe-needle U-100 0.3 #200 ea 05/07/23 Unknown Rx mL 31 gauge x 5/16 (BD Insulin Syringe Ultra-Fine) dicyclomine 10 mg capsule 10 mg PO TIDAC PRN abdominal 05/12/23 Unknown Rx pain/Cramping #90 caps lubiprostone 8 mcg capsule 8 mcg PO BID #60 caps 06/23/23 Unknown Rx (Amitiza) blood-glucose meter (Accu-Chek #1 ea 07/01/23 Unknown Rx Guide Glucose Meter) blood sugar diagnostic (Accu-Chek #100 ea 08/30/23 Unknown Rx Guide test strips) flash glucose sensor (FreeStyle #2 ea 09/08/23 Unknown Rx To 2 Sensor kit) rosuvastatin 40 mg tablet 40 mg PO DAILY cholestrol #90 tabs 09/09/23 Unknown Rx metoclopramide HCl 5 mg tablet 5 mg PO QAC #90 tabs 04/20/24 Unknown Rx insulin glargine 100 unit/mL 20 unit subcut BID 05/25/24 Unknown History subcutaneous solution (Lantus U-100 Insulin) isosorbide mononitrate 60 mg 60 mg PO DAILY #90 tabs 05/25/24 Unknown Rx tablet,extended release 24 hr prednisone 20 mg tablet 40 mg PO DAILY PRN 05/25/24 Unknown History carvedilol 6.25 mg tablet 6.25 mg PO BID #180 tabs 11/13/24 Unknown Rx nitroglycerin 0.4 mg sublingual 0.4 mg sublingual Q5-15M PRN chest 01/05/25 Unknown Rx tablet pain #25 tabs insulin aspart U-100 100 unit/mL 10 unit subcut TID 02/20/25 Unknown History subcutaneous solution (Novolog U-100 Insulin aspart) Allergy/AdvReac Type Severity Reaction Status Date / Time egg Allergy Severe Anaphylaxis Verified 02/20/25 12:40 fish derived Allergy Severe Unknown Verified 02/20/25 12:40 nitrofurantoin Allergy Severe Anaphylaxis Verified 02/20/25 12:40 macrocrystalline (From Macrodantin) calcium carbonate (From AdvReac Severe unknown Verified 02/20/25 12:40 Florical) codeine AdvReac Severe unknown Verified 02/20/25 12:40 oxycodone HCl (From Percocet) AdvReac Severe unknown Verified 02/20/25 12:40 propoxyphene napsylate (From AdvReac Severe unknown Verified 02/20/25 12:40 Darvocet-N 100) sodium fluoride (From AdvReac Severe unknown Verified 02/20/25 12:40 Florical) Sulfa (Sulfonamide AdvReac Severe Hives Verified 02/20/25 12:40 Antibiotics) tamoxifen AdvReac Severe Hives Verified 02/20/25 12:40 dulaglutide (From Trulicity) AdvReac Intermediate Diarrhea Verified 02/20/25 12:40 glimepiride AdvReac Intermediate Diarrhea Verified 02/20/25 12:40 morphine AdvReac Other Verified 02/20/25 12:40 Family History Sister Heart disease Breast cancer Asthma Depression Mother Diabetes Heart disease Breast cancer Arthritis Father Diabetes Heart disease Arthritis Unknown No problems noted. Brother Arthritis Surgical History History of lumpectomy of left breast H/O breast surgery Hx of cholecystectomy History of left heart catheterization (LHC) (03/15/19) History of hysterectomy History of coronary artery stent placement (10/10/18) Social History Smoking Status: Never smoker alcohol intake: never substance use type: does not use caffeine: No what type of physical activity do you participate in: walking, aerobics and weight training ROS ROS ED Constitutional Constitutional ED: Denies chills, fever(s) or sweats ENT ENT ED: Denies sore throat Cardiovascular Cardiovascular: Reports chest pain; Denies leg edema, palpitations or racing heartbeat Respiratory/Chest Respiratory/Chest: Reports dyspnea; Denies cough or dyspnea on exertion Gastrointestinal Gastrointestinal: Denies abdominal pain, diarrhea, nausea or vomiting Genitourinary Genitourinary ED: Denies dysuria, hematuria or urinary frequency Musculoskeletal Musculoskeletal: Denies back pain, extremity pain or neck pain Integumentary Denies rash or wounds Neurologic Neurologic: Denies headache(s), paresthesias or weakness EXAM Physical Exam Const Vital Signs: 02/20/25 12:40 02/20/25 12:44 02/20/25 13:08 Temperature 98.4 F Temperature Source Oral Pulse Rate 73 Respiratory Rate 18 Respiratory Effort Normal Blood Pressure 162/92 H Blood Pressure Mean 115 Pulse Ox 96 97 Oxygen Delivery Method Room Air Room Air 02/20/25 13:15 02/20/25 13:39 02/20/25 14:00 Temperature Temperature Source Pulse Rate 63 61 54 L Respiratory Rate 18 18 Respiratory Effort Blood Pressure 126/61 H 124/85 H 128/71 H Blood Pressure Mean 98 90 Pulse Ox 94 27 Oxygen Delivery Method Room Air Room Air 02/20/25 14:43 02/20/25 15:00 02/20/25 16:00 Temperature Temperature Source Pulse Rate 62 66 97 Respiratory Rate 18 15 Respiratory Effort Blood Pressure 124/82 H 132/80 H 128/86 H Blood Pressure Mean 97 100 Pulse Ox 96 98 Oxygen Delivery Method Room Air Room Air Positive well nourished and well developed General Appearance ED: well developed and NAD HEENT Reports moist mucous membranes normocephalic and atraumatic Eyes General Eye ED: Yes normal appearance of both eyes Neck full ROM Chest Wall Chest: Negative for tenderness Resp normal respiratory effort and normal air movement Effort and Inspection: symmetric chest movement; Negative for respiratory distress Cardio regular rate, regular rhythm and no murmurs Peripheral Pulses: pulses 2+ throughout GI normal to inspection, nondistended, normoactive bowel sounds and non-tender Palpation: Negative for guarding or rebound tenderness present Extremity normal to inspection General Extremety ED: Negative for edema or tenderness General Extremity: Negative for edema Neuro oriented x3 and no sensory deficits noted Sensorium / Orientation: awake and alert Skin no rashes or lesions noted and no wounds Heart Score History: Moderately Suspicious ECG: Nonspecific Repolarization Age: >/= 65 years Risk Factors: >/= 3 Risk Factors or History of CAD Troponin: </= Normal Limit Score: 6 MDM MDM MDM Narrative Medical decision making narrative: Interventions / MDM: Differential diagnosis: Chest pain, history of coronary artery disease Diagnosis considered but do not suspect: N/A My EKG interpretation: Sinus rate 68, no ST changes, T wave version anterior leads of V1 V2. Similar to May 2023. Imaging independently reviewed and interpreted by myself: 1 view chest x-ray: No acute process. External documents reviewed: Heart cath March 2019: 99% occluded LAD with 2 stents placed. Noted 50% mid circumflex with 50 to 75% OM1 branch. Also noted up to 50% right RCA. She had a EF of 35% at that time however repeat echocardiograms has no return of normal ejection fraction. Test considered but not ordered:N/A ED course: Patient chest pains while doing steps similar to her [place] 6 years ago. EKG chronic findings. Cardiac workup initiated. Optimize her aspirin there is no 243 mg. Additional nitroglycerin ordered due to chest heaviness. Cardiac workup initiated. 1340: Nursing reports chest pain-free after [address] Nitropaste. Awaiting cardiac enzyme results. 1457: Initial troponin less than 6. I discussed with hospice care consultant Dr. Saldana, discussed his history of her coronary lesions for 6 years ago. Agrees with plan admission, he will see the patient in the ED. Patient seen by Dr. Saldana, discussed if troponin elevated he will plan on performing heart cath, however if normal plan for pharmacological stress test. I spoke with hospitalist Dr. Kaplan for admission to PCU. 1630: Repeat troponin less than 6. Re-evaluation: stable Disposition discussed with patient/family/significant other: Patient Case discussed with consulting clinician: Cardiology, hospitalist chest pain, history of coronary disease This note was generated with [employer] dictation software. It may contain incorrect words, spelling, and punctuation that were not noted in checking the note before signing. Lab Data Attestation: I reviewed the patient's lab results. Labs: Laboratory Results - last 24 hr 02/20/25 12:45 WBC 7.7 RBC 4.91 Hgb 14.0 Hct 41.7 MCV 84.9 MCH 28.5 MCHC 33.6 RDW Std Deviation 39.1 RDW Coeff of Sanjay 12.7 Plt Count 265 MPV 11.0 Immature Gran % (Auto) 0.300 Neut % (Auto) 62.3 Lymph % (Auto) 23.8 Whitley % (Auto) 7.4 Eos % (Auto) 5.7 H Baso % (Auto) 0.5 Absolute Neuts (auto) 4.8 Absolute Lymphs (auto) 1.84 Nucleated RBC % 0 PT 12.4 INR 0.9 APTT 25.6 Sodium 134 Potassium 4.7 Chloride 101 Carbon Dioxide 21.9 Anion Gap 12 BUN 12 Creatinine 0.94 Estim Creat Clear Calc 55.86 Est GFR (MDRD) Non-Af 68 BUN/Creatinine Ratio 12.3 Glucose 253 H Calcium 9.5 Troponin T High Sens < 6 Radiography Diagnostic Testing: Clinical Impression(s) from Imaging Studies Chest X-Ray 02/20/25 13:10 IMPRESSION: No acute process is identified in the chest. Reading Location: [facility] Discharge Plan Triage Chief Complaint: Chest Pain ED Provider: Yoan Rincon Dx/Rx/DC Orders Clinical Impression: Chest pain, History of CAD (coronary artery disease), History of diabetes mellitus Prescriptions: No Action calcium carbonate-vitamin D3 200 mg (500 mg) -400 unit tablet 1 tab PO BID (DME) insulin syringe-needle U-100 [BD Insulin Syringe Ultra-Fine] 0.3 mL 31 gauge x 5/16 syringe See Rx Instructions .ROUTE .MEDSUPPLY Qty: 120 8RF Rx Instructions: 4 times daily bupropion HCl [Wellbutrin SR] 150 mg tablet sustained-release 12 hr 150 mg PO DAILY (DME) insulin syringe-needle U-100 [BD Insulin Syringe Ultra-Fine] 0.3 mL 31 gauge x 5/16 syringe See Rx Instructions .Route Qty: 200 6RF Rx Instructions: 4 times per day prednisone 20 mg tablet 40 mg PO DAILY PRN isosorbide mononitrate 60 mg tablet extended release 24 hr 60 mg PO DAILY Qty: 90 3RF aspirin 81 MG tablet 81 mg PO DAILY@0800 0RF meclizine 25 MG tablet 25 mg PO TID PRN PRN (Reason: Dizziness) ondansetron 4 mg tablet,disintegrating 4 mg PO Q6H PRN (Reason: nausea and vomiting) Qty: 12 0RF trazodone 100 mg tablet 200 mg PO QHS dicyclomine 10 mg Capsule 10 mg PO TIDAC PRN (Reason: abdominal pain/Cramping) Qty: 90 0RF insulin glargine [Lantus U-100 Insulin] 100 unit/mL solution 20 unit subcut BID insulin aspart U-100 [Novolog U-100 Insulin aspart] 100 unit/mL solution 10 unit subcut TID omeprazole 40 mg capsule,delayed release(DR/EC) 40 mg PO DAILY Qty: 90 1RF duloxetine 30 mg capsule,delayed release(DR/EC) 30 mg PO BID Qty: 180 1RF (DME) lancets [Comfort EZ Lancets] 28 gauge misc See Rx Instructions .Route Qty: 100 5RF Rx Instructions: 4x/day lubiprostone [Amitiza] 8 mcg capsule 8 mcg PO BID Qty: 60 2RF (DME) blood-glucose meter [Accu-Chek Guide Glucose Meter] Misc See Rx Instructions .Route Qty: 1 0RF Rx Instructions: As directed (DME) Accu-Chek Guide test strips Strip See Rx Instructions .Route Qty: 100 12RF Rx Instructions: test tid (DME) FreeStyle To 2 Sensor Kit See Rx Instructions .Route Qty: 2 6RF Rx Instructions: As directed rosuvastatin 40 mg tablet 40 mg PO DAILY Qty: 90 3RF metoclopramide HCl 5 mg tablet 5 mg PO QAC Qty: 90 3RF Rx Instructions: administer 30 minutes before meals carvedilol 6.25 mg tablet 6.25 mg PO BID Qty: 180 3RF nitroglycerin 0.4 mg tablet, sublingual 0.4 mg SUBLINGUAL Q5-15M PRN (Reason: chest pain) Qty: 25 5RF Rx Instructions: until response; do not exceed 3 doses per episode Primary Care Provider: Gaurav Deshpande Referrals: Gaurav Deshpande MD [Primary Care Provider] - Print Language: Sinhala Disposition Disposition: Acute Care Hospital [facility]
[2025-02-20] MEDS: Nitroglycerin Oint 1 INCH PACKET TD ×2 (14:43→21:28)
--- NOTE | 2025-02-20 15:49 | PCM.CONS.C ---
Assessment & Plan Assessment/Plan (1) Chest pain: QUALIFIERS: Chest pain type: unspecified Qualified Code(s): R07.9 - Chest pain, unspecified PLAN: Patient has a known history of coronary disease. She has also had admissions for noncardiac chest pain. The patient is status post left mastectomy due to breast cancer and received radiation therapy to her chest. Patient is ECG was normal the first troponin only 20 minutes after onset of pain was less than 6. 2nd and 3rd troponins are pending. If the patient's troponins are positive she should undergo a left heart catheterization. If the troponins are negative I recommend pharmacologic nuclear stress test. The patient had a negative stress test in 2023. She cannot walk a treadmill. (2) CAD (coronary artery disease): QUALIFIERS: Coronary Disease-Associated Artery/Lesion type: [place] artery [place] vs. transplanted heart: [place] heart Associated angina: unspecified whether angina present Qualified Code(s): I25.10 - Atherosclerotic heart disease of [place] coronary artery without angina pectoris PLAN: Patient has a history of stenting of the LAD in 2019 time of an acute myocardial infarction. She also had residual disease in the OM branch of the circumflex and the right coronary artery to a moderate amount. Initial LV function was depressed at 30% but with guideline directed medical therapy recovered to normal LV function on the most recent echocardiogram. Further evaluation will be pending results of the troponins which are still pending. (3) History of ductal carcinoma in situ (DCIS) of left breast: PLAN: Patient has a history of radiation to the left breast area. This could complicate the potential for coronary bypass graft surgery and the use of the PINTO graft. (4) Diabetes mellitus type 2 in obese: PLAN: Patient is on insulin. This is managed and treated by the primary service. (5) Hyperlipidemia: QUALIFIERS: Hyperlipidemia type: pure hypercholesterolemia Qualified Code(s): E78.00 - Pure hypercholesterolemia, unspecified; E78.0 - Pure hypercholesterolemia PLAN: Patient is on intensive statin therapy with rosuvastatin. PLAN: Plan 1. Await results of troponins. 2. If troponins are negative would perform pharmacologic nuclear stress test. 3. If troponins are positive would recommend left heart catheterization. HPI Consult Data Date of Consult: 02/20/25 HPI Narrative Reason for Consultation: Chest pain with known coronary artery disease HPI Narrative: ANGEL ALMODOVAR, is a 64 F who presents after developing chest discomfort when walking up steps to go out to eat lunch today. The patient has a known history of coronary artery disease. The patient reports that the symptoms remind her of the STEMI that she had in 2018. The symptoms were relieved with nitroglycerin in the emergency department. She has a history of a STEMI in September 2018, she was noted to have a 99% LAD stenosis with MEHREEN I flow, a 70% distal circumflex stenosis and a 60% mid right coronary artery stenosis. Her ejection fraction was noted to be 35% and she underwent successful drug-eluting stent placement to the mid left anterior descending artery. Patient presented to [facility] Emergency Department in March 2019 for ongoing chest pain. She underwent repeat heart catheterization with FFR. This did not demonstrate any significant restenosis. She was discharged home with her Coreg medication adjusted. She did have a left partial breast mastectomy with radiation and so she has had some residual chest discomfort. She also has a history of hypertension, hyperlipidemia, and ischemic cardiomyopathy. She underwent a stress test in May of 2022 which was noted to be normal. She did have a stress test in 2023 which was negative for ischemia. Echocardiogram at that time also demonstrated a preserved ejection fraction. First troponin after 20 minutes of chest discomfort was normal. Second troponin is pending. ECG shows a normal sinus rhythm and is normal. The patient reports that her lipids have been monitored through her primary care's office. She also is diabetic on insulin. She has never smoked and denies any shortness of breath PND orthopnea or lower extremity edema. [facility] Medical History Fracture of distal end of radius with malunion History of ductal carcinoma in situ (DCIS) of left breast Pain of left breast Colitis Wears hearing aid Wears glasses Cancer Anxiety Insulin dependent diabetes mellitus Fibromyalgia Syncope Dietary restriction History of edema History of Holter monitoring History of stress test GERD (gastroesophageal reflux disease) Bilateral hip pain Bilateral knee pain Chronic suprapubic pain Urinary incontinence Polyarthropathy COPD (chronic obstructive pulmonary disease) Noncompliance with diabetes treatment Osteoarthritis Diabetes mellitus type 2 in obese Obesity Type 2 diabetes mellitus Depression Ischemic cardiomyopathy Abnormal mammogram Atherosclerosis of coronary artery of [place] heart without angina pectoris Essential (primary) hypertension Hyperlipidemia Asthma Memory loss Rheumatoid arthritis Learning disabilities STEMI (ST elevation myocardial infarction) (10/10/18) Home Medications ?Medication ?Instructions ?Recorded ?Last Taken ?Type aspirin 81 mg tablet,delayed 81 mg PO DAILY@0800 10/12/18 05/11/23 Rx release meclizine 25 mg tablet 25 mg PO TID PRN PRN Dizziness 07/14/20 05/10/23 History calcium carbonate 200 mg calcium 1 tab PO BID 08/26/20 05/11/23 History (500 mg)-vitamin D3 400 unit tablet insulin syringe-needle U-100 0.3 #120 ea 11/24/21 Unknown Rx mL 31 gauge x 5/16 (BD Insulin Syringe Ultra-Fine) omeprazole 40 mg capsule,delayed 40 mg PO DAILY #90 caps 08/05/22 05/12/23 Rx release duloxetine 30 mg capsule,delayed 30 mg PO BID #180 caps 08/07/22 05/11/23 Rx release lancets 28 gauge (Comfort EZ #100 ea 09/03/22 Unknown Rx Lancets) bupropion HCl 150 mg tablet,12 hr 150 mg PO DAILY 02/04/23 05/11/23 History sustained-release (Wellbutrin SR) ondansetron 4 mg disintegrating 4 mg PO Q6H PRN nausea and 02/15/23 05/11/23 Rx tablet vomiting #12 tabs trazodone 100 mg tablet 200 mg PO QHS 02/19/23 05/11/23 History insulin syringe-needle U-100 0.3 #200 ea 05/07/23 Unknown Rx mL 31 gauge x 5/16 (BD Insulin Syringe Ultra-Fine) dicyclomine 10 mg capsule 10 mg PO TIDAC PRN abdominal 05/12/23 Unknown Rx pain/Cramping #90 caps lubiprostone 8 mcg capsule 8 mcg PO BID #60 caps 06/23/23 Unknown Rx (Amitiza) blood-glucose meter (Accu-Chek #1 ea 07/01/23 Unknown Rx Guide Glucose Meter) blood sugar diagnostic (Accu-Chek #100 ea 08/30/23 Unknown Rx Guide test strips) flash glucose sensor (FreeStyle #2 ea 09/08/23 Unknown Rx To 2 Sensor kit) rosuvastatin 40 mg tablet 40 mg PO DAILY cholestrol #90 tabs 09/09/23 Unknown Rx metoclopramide HCl 5 mg tablet 5 mg PO QAC #90 tabs 04/20/24 Unknown Rx insulin glargine 100 unit/mL 20 unit subcut BID 05/25/24 Unknown History subcutaneous solution (Lantus U-100 Insulin) isosorbide mononitrate 60 mg 60 mg PO DAILY #90 tabs 05/25/24 Unknown Rx tablet,extended release 24 hr prednisone 20 mg tablet 40 mg PO DAILY PRN 05/25/24 Unknown History carvedilol 6.25 mg tablet 6.25 mg PO BID #180 tabs 11/13/24 Unknown Rx nitroglycerin 0.4 mg sublingual 0.4 mg sublingual Q5-15M PRN chest 01/05/25 Unknown Rx tablet pain #25 tabs insulin aspart U-100 100 unit/mL 10 unit subcut TID 02/20/25 Unknown History subcutaneous solution (Novolog U-100 Insulin aspart) Allergy/AdvReac Type Severity Reaction Status Date / Time egg Allergy Severe Anaphylaxis Verified 02/20/25 12:40 fish derived Allergy Severe Unknown Verified 02/20/25 12:40 nitrofurantoin Allergy Severe Anaphylaxis Verified 02/20/25 12:40 macrocrystalline (From Macrodantin) calcium carbonate (From AdvReac Severe unknown Verified 02/20/25 12:40 Florical) codeine AdvReac Severe unknown Verified 02/20/25 12:40 oxycodone HCl (From Percocet) AdvReac Severe unknown Verified 02/20/25 12:40 propoxyphene napsylate (From AdvReac Severe unknown Verified 02/20/25 12:40 Darvocet-N 100) sodium fluoride (From AdvReac Severe unknown Verified 02/20/25 12:40 Florical) Sulfa (Sulfonamide AdvReac Severe Hives Verified 02/20/25 12:40 Antibiotics) tamoxifen AdvReac Severe Hives Verified 02/20/25 12:40 dulaglutide (From Trulicity) AdvReac Intermediate Diarrhea Verified 02/20/25 12:40 glimepiride AdvReac Intermediate Diarrhea Verified 02/20/25 12:40 morphine AdvReac Other Verified 02/20/25 12:40 Family History Sister Heart disease Breast cancer Asthma Depression Mother Diabetes Heart disease Breast cancer Arthritis Father Diabetes Heart disease Arthritis Unknown No problems noted. Brother Arthritis Surgical History History of lumpectomy of left breast H/O breast surgery Hx of cholecystectomy History of left heart catheterization (LHC) (03/15/19) History of hysterectomy History of coronary artery stent placement (10/10/18) Social History Smoking Status: Never smoker alcohol intake: never substance use type: does not use caffeine: No what type of physical activity do you participate in: walking, aerobics and weight training ROS Constitutional Constitutional: Reports as per HPI Eyes Eyes: Reports systems reviewed and no addt'l complaints, except as documented ENT HEENT: Reports systems reviewed and no addt'l complaints, except as documented Cardiovascular Cardiovascular: Reports as per HPI Respiratory/Chest Respiratory/Chest: Reports as per HPI Gastrointestinal Gastrointestinal: Reports systems reviewed and no addt'l complaints, except as documented Genitourinary Genitourinary: Reports systems reviewed and no addt'l complaints, except as documented Musculoskeletal Musculoskeletal: Reports systems reviewed and no addt'l complaints, except as documented Integumentary Integumentary: Reports systems reviewed and no addt'l complaints, except as documented Neurologic Neurologic: Reports as per HPI Psychiatric Psychiatric: Reports systems reviewed and no addt'l complaints, except as documented Endocrine Endocrinology: Reports as per HPI Hematologic/Lymphatic Hematologic/Lymphatic: Reports systems reviewed and no addt'l complaints, except as documented Allergic/Immunologic Allergic/Immunologic: Reports systems reviewed and no addt'l complaints, except as documented Physical Exam Const alert and oriented x3 HEENT normocephalic Eyes EOMs intact bilaterally Neck no JVD and No no carotid bruits Chest inspection of chest normal Resp normal respiratory effort Auscultation: crackles bilateral (Scant and change with deep breath) base Cardio Rate: regular rate Rhythm: regular rhythm Heart Sounds: S1 normal and S2 normal; Negative for click, gallop or murmur Peripheral Pulses: radial pulses present bilateral 2+ and posterior tibial pulses present bilateral 2+ GI normal to inspection, nondistended, normoactive bowel sounds Extremity no pedal edema Neuro Neuro Narrative: Alert and oriented x 3. There is a hearing deficit. Psych mental status grossly normal Risk Stratification Risk Stratification Applicable: Yes Age >/= 65: Yes >/= 3 CAD Risk Factors (HTN, HLD, DM, family hx of CAD, or current smoker): Yes Aspirin Use in the Past 7 Days: Yes Severe Angina (>/= episodes in 24 hours): No EKG ST Changes >/= 0.5mm: No Positive Cardiac Marker: No MEHREEN Risk Stratification Score: 3 MEHREEN % Risk: 13% Risk Charges/Coding Visit Charges Inpatient E&M: 90301 Init Hosp L2 Objective Data Vital Signs: Vital Signs Temp Pulse Resp BP Pulse Ox O2 Del Method 98.4 F 66 18 132/80 H 96 Room Air 02/20/25 12:40 02/20/25 15:00 02/20/25 15:00 02/20/25 15:00 02/20/25 15:00 02/20/25 15:00 Oxygen Delivery Method Room Air Weight: 176 lb 5.917 oz Body Mass Index (BMI) 38.1 Lab / Micro Data Attestation: I reviewed the patient's lab results. 02/20/25 12:45 02/20/25 12:45 Labs: Laboratory Results - last 24 hr 02/20/25 12:45: WBC 7.7, RBC 4.91, Hgb 14.0, Hct 41.7, MCV 84.9, MCH 28.5, MCHC 33.6, RDW Std Deviation 39.1, RDW Coeff of Sanjay 12.7, Plt Count 265, MPV 11.0, Immature Gran % (Auto) 0.300, Neut % (Auto) 62.3, Lymph % (Auto) 23.8, [place] % (Auto) 7.4, Eos % (Auto) 5.7 H, Baso % (Auto) 0.5, Absolute Neuts (auto) 4.8, Absolute Lymphs (auto) 1.84, Nucleated RBC % 0, PT 12.4, INR 0.9, APTT 25.6, Sodium 134, Potassium 4.7, Chloride 101, Carbon Dioxide 21.9, Anion Gap 12, BUN 12, Creatinine 0.94, Estim Creat Clear Calc 55.86, Est GFR (MDRD) Non-Af 68, BUN/Creatinine Ratio 12.3, Glucose 253 H, Calcium 9.5, Troponin T High Sens < 6 Rhythm Strip Rhythm Strip: Sinus Rhythm Rate: 65 Cardiology Labs/Tests 02/20/25 12:45: WBC 7.7, RBC 4.91, Hgb 14.0, Hct 41.7, MCV 84.9, MCH 28.5, MCHC 33.6, Plt Count 265, MPV 11.0, Immature Gran % (Auto) 0.300, Neut % (Auto) 62.3, Lymph % (Auto) 23.8, [place] % (Auto) 7.4, Eos % (Auto) 5.7 H, Baso % (Auto) 0.5, Absolute Neuts (auto) 4.8, Nucleated RBC % 0, PT 12.4, INR 0.9, APTT 25.6, Sodium 134, Potassium 4.7, Chloride 101, Carbon Dioxide 21.9, Anion Gap 12, BUN 12, Creatinine 0.94, Est GFR (MDRD) Non-Af 68, BUN/Creatinine Ratio 12.3, Glucose 253 H, Calcium 9.5 Rhythm: EKG: ECHO: Stress Test: Cardiac Cath: PCI: CT Surgery: Holter monitor: EPS: PPM: CXR: Chest CT Scan: Radiography Diagnostic Testing: Radiology Impression Chest X-Ray 02/20/25 13:10 IMPRESSION: No acute process is identified in the chest. Reading Location: [facility]
[2025-02-20 16:24] LABS: Troponin T High Sens 2 HR < 6 ng/L (<=14)
--- NOTE | 2025-02-20 16:39 | PCM.HP.STD ---
HPI - General General Date of Admission: 02/20/25 Date of Service: 02/20/25 Chief Complaint: Chest pain HPI Narrative ANGEL ALMODOVAR, is a 64-year-old female history of GERD, depression, diabetes, coronary artery disease, RA who presented [facility] 02/[facility]/25 for chest heaviness, shortness of breath and pain to her left axilla 20 minutes prior to arrival. She was going up for steps when the symptoms occurred and pain 7 out of 10 and happened when she went up 4 steps. She took a nitroglycerin with no relief. Last had 2 stents placed 6 years ago and is followed by Dr. Olsen. Has had a stress test since her stents but no heart caths. In the ED patient given aspirin and nitro and was subsequently chest pain-free and Nitropaste placed. Temperature 98.4, heart rate 73 and blood pressure 162/92. Respiratory rate 18 pulse ox 96% on room air. CBC unremarkable and BMP only notable for glucose of 253. Chest x-ray no acute process and initial troponin of less than 6. [employer] contacted in the ED and it was recommended patient will be admitted and seen in consultation. Hospitalist contacted for admission. She reports a history as above and that the nitro did help in the ED, has continued to have some intermittent pain under her left breast that is improved from previous and coming and going, not persistent like the pain radius. Feels like it is hard to take a full deep breath but not necessarily short of breath. Denies headache. No nausea or vomiting, no other acute complaints [facility] Medical History Fracture of distal end of radius with malunion History of ductal carcinoma in situ (DCIS) of left breast Pain of left breast Colitis Wears hearing aid Wears glasses Cancer Anxiety Insulin dependent diabetes mellitus Fibromyalgia Syncope Dietary restriction History of edema History of Holter monitoring History of stress test GERD (gastroesophageal reflux disease) Bilateral hip pain Bilateral knee pain Chronic suprapubic pain Urinary incontinence Polyarthropathy COPD (chronic obstructive pulmonary disease) Noncompliance with diabetes treatment Osteoarthritis Diabetes mellitus type 2 in obese Obesity Type 2 diabetes mellitus Depression Ischemic cardiomyopathy Abnormal mammogram Atherosclerosis of coronary artery of [place] heart without angina pectoris Essential (primary) hypertension Hyperlipidemia Asthma Memory loss Rheumatoid arthritis Learning disabilities STEMI (ST elevation myocardial infarction) (10/10/18) Home Medications ?Medication ?Instructions ?Recorded ?Last Taken ?Type aspirin 81 mg tablet,delayed 81 mg PO DAILY@0800 10/12/18 05/11/23 Rx release meclizine 25 mg tablet 25 mg PO TID PRN PRN Dizziness 07/14/20 05/10/23 History calcium carbonate 200 mg calcium 1 tab PO BID 08/26/20 05/11/23 History (500 mg)-vitamin D3 400 unit tablet insulin syringe-needle U-100 0.3 #120 ea 11/24/21 Unknown Rx mL 31 gauge x 5/16 (BD Insulin Syringe Ultra-Fine) omeprazole 40 mg capsule,delayed 40 mg PO DAILY #90 caps 08/05/22 05/12/23 Rx release duloxetine 30 mg capsule,delayed 30 mg PO BID #180 caps 08/07/22 05/11/23 Rx release lancets 28 gauge (Comfort EZ #100 ea 09/03/22 Unknown Rx Lancets) bupropion HCl 150 mg tablet,12 hr 150 mg PO DAILY 02/04/23 05/11/23 History sustained-release (Wellbutrin SR) ondansetron 4 mg disintegrating 4 mg PO Q6H PRN nausea and 02/15/23 05/11/23 Rx tablet vomiting #12 tabs trazodone 100 mg tablet 200 mg PO QHS 02/19/23 05/11/23 History insulin syringe-needle U-100 0.3 #200 ea 05/07/23 Unknown Rx mL 31 gauge x 5/16 (BD Insulin Syringe Ultra-Fine) dicyclomine 10 mg capsule 10 mg PO TIDAC PRN abdominal 05/12/23 Unknown Rx pain/Cramping #90 caps lubiprostone 8 mcg capsule 8 mcg PO BID #60 caps 06/23/23 Unknown Rx (Amitiza) blood-glucose meter (Accu-Chek #1 ea 07/01/23 Unknown Rx Guide Glucose Meter) blood sugar diagnostic (Accu-Chek #100 ea 08/30/23 Unknown Rx Guide test strips) flash glucose sensor (FreeStyle #2 ea 09/08/23 Unknown Rx To 2 Sensor kit) rosuvastatin 40 mg tablet 40 mg PO DAILY cholestrol #90 tabs 09/09/23 Unknown Rx metoclopramide HCl 5 mg tablet 5 mg PO QAC #90 tabs 04/20/24 Unknown Rx insulin glargine 100 unit/mL 20 unit subcut BID 05/25/24 Unknown History subcutaneous solution (Lantus U-100 Insulin) isosorbide mononitrate 60 mg 60 mg PO DAILY #90 tabs 05/25/24 Unknown Rx tablet,extended release 24 hr prednisone 20 mg tablet 40 mg PO DAILY PRN 05/25/24 Unknown History carvedilol 6.25 mg tablet 6.25 mg PO BID #180 tabs 11/13/24 Unknown Rx nitroglycerin 0.4 mg sublingual 0.4 mg sublingual Q5-15M PRN chest 01/05/25 Unknown Rx tablet pain #25 tabs insulin aspart U-100 100 unit/mL 10 unit subcut TID 02/20/25 Unknown History subcutaneous solution (Novolog U-100 Insulin aspart) Allergy/AdvReac Type Severity Reaction Status Date / Time egg Allergy Severe Anaphylaxis Verified 02/20/25 12:40 fish derived Allergy Severe Unknown Verified 02/20/25 12:40 nitrofurantoin Allergy Severe Anaphylaxis Verified 02/20/25 12:40 macrocrystalline (From Macrodantin) calcium carbonate (From AdvReac Severe unknown Verified 02/20/25 12:40 Florical) codeine AdvReac Severe unknown Verified 02/20/25 12:40 oxycodone HCl (From Percocet) AdvReac Severe unknown Verified 02/20/25 12:40 propoxyphene napsylate (From AdvReac Severe unknown Verified 02/20/25 12:40 Darvocet-N 100) sodium fluoride (From AdvReac Severe unknown Verified 02/20/25 12:40 Florical) Sulfa (Sulfonamide AdvReac Severe Hives Verified 02/20/25 12:40 Antibiotics) tamoxifen AdvReac Severe Hives Verified 02/20/25 12:40 dulaglutide (From Trulicity) AdvReac Intermediate Diarrhea Verified 02/20/25 12:40 glimepiride AdvReac Intermediate Diarrhea Verified 02/20/25 12:40 morphine AdvReac Other Verified 02/20/25 12:40 Family History Sister Heart disease Breast cancer Asthma Depression Mother Diabetes Heart disease Breast cancer Arthritis Father Diabetes Heart disease Arthritis Unknown No problems noted. Brother Arthritis Surgical History History of lumpectomy of left breast H/O breast surgery Hx of cholecystectomy History of left heart catheterization (LHC) (03/15/19) History of hysterectomy History of coronary artery stent placement (10/10/18) Social History Smoking Status: Never smoker alcohol intake: never substance use type: does not use caffeine: No what type of physical activity do you participate in: walking, aerobics and weight training ROS ROS Narrative General: Denies fever/chills HENT: Denies headache, denies stuffy nose, denies sore throat EYES: Denies changes in vision Resp: Denies cough, feels like it is little bit difficult to take a big deep breath but not overtly short of breath Cardiac: Intermittently having pain under her left breast GI: Denies abdominal pain, denies changes in bowel, denies nausea/vomiting : Denies changes in urination Extremity: Denies swelling MSK: Denies weakness Neuro: Denies any numbness/tingling Heme: Denies any bleeding or bruising Skin: Denies rashes Psychiatric: No complaints voiced Vital Signs Vital Signs Vital Signs: 02/20/25 12:40 02/20/25 12:44 02/20/25 13:08 Temperature 98.4 F Temperature Source Oral Pulse Rate 73 Respiratory Rate 18 Respiratory Effort Normal Blood Pressure 162/92 H Blood Pressure Mean 115 Pulse Ox 96 97 Oxygen Delivery Method Room Air Room Air 02/20/25 13:15 02/20/25 13:39 02/20/25 14:00 Temperature Temperature Source Pulse Rate 63 61 54 L Respiratory Rate 18 18 Respiratory Effort Blood Pressure 126/61 H 124/85 H 128/71 H Blood Pressure Mean 98 90 Pulse Ox 94 27 Oxygen Delivery Method Room Air Room Air 02/20/25 14:43 02/20/25 15:00 02/20/25 16:00 Temperature Temperature Source Pulse Rate 62 66 97 Respiratory Rate 18 15 Respiratory Effort Blood Pressure 124/82 H 132/80 H 128/86 H Blood Pressure Mean 97 100 Pulse Ox 96 98 Oxygen Delivery Method Room Air Room Air Weight Weight: 80 kg Body Mass Index (BMI) 38.1 Physical Exam Narrative General: Alert, oriented, no apparent distress HEENT: Atraumatic, normocephalic Eyes: Anicteric, normal conjunctiva, extraocular movements grossly intact Neck: Supple Respiratory: Clear to auscultation bilaterally, normal respiratory effort Cardiovascular: Regular rate and rhythm GI: Soft, nontender, nondistended Extremities: No edema Musculoskeletal: Moving all extremities Neuro: No overt focal neurological deficits Skin: No rashes appreciated Psych: Cooperative Results Lab / Micro Data 02/20/25 12:45 02/20/25 12:45 Labs: Laboratory Results - last 24 hr 02/20/25 12:45: WBC 7.7, RBC 4.91, Hgb 14.0, Hct 41.7, MCV 84.9, MCH 28.5, MCHC 33.6, RDW Std Deviation 39.1, RDW Coeff of Sanjay 12.7, Plt Count 265, MPV 11.0, Immature Gran % (Auto) 0.300, Neut % (Auto) 62.3, Lymph % (Auto) 23.8, [place] % (Auto) 7.4, Eos % (Auto) 5.7 H, Baso % (Auto) 0.5, Absolute Neuts (auto) 4.8, Absolute Lymphs (auto) 1.84, Nucleated RBC % 0, PT 12.4, INR 0.9, APTT 25.6, Sodium 134, Potassium 4.7, Chloride 101, Carbon Dioxide 21.9, Anion Gap 12, BUN 12, Creatinine 0.94, Estim Creat Clear Calc 55.86, Est GFR (MDRD) Non-Af 68, BUN/Creatinine Ratio 12.3, Glucose 253 H, Calcium 9.5, Troponin T High Sens < 6 02/20/25 15:05: Troponin T Hi Sens 2 Hr < 6 Rhythm Strip Rhythm Strip: Sinus Rhythm Rate: 65 Imaging Radiology Impression Chest X-Ray 02/20/25 13:10 IMPRESSION: No acute process is identified in the chest. Reading Location: [facility] Assessment & Plan Assessment/Plan (1) Chest pain: (2) History of CAD (coronary artery disease): (3) History of diabetes mellitus: PLAN: Plan #Chest pain -EKG sinus rate [address] changes, T wave inversions in V1 and V2 similar to May 2023 -Trop less than 6 with a repeat of less than 6 -Admit to telemetry -Echo ordered -Aspirin -Statin -Lipid panel in AM -Cardiology consult, it was advised if troponins remain negative to have stress test, if any troponin elevation may need heart cath - Troponins negative and 6 x 2, pharmacologic stress test ordered for AM - Given patient's continued intermittent pain adding Nitropaste as this is seem to help # History of coronary artery disease -With 2 stents 6 years ago following with cardiology on an outpatient basis -Continue home medications -Further workup as above #Type 2 diabetes mellitus -Glucose checks and sliding scale insulin - Continue long-acting insulin low to slightly lower dose to avoid hypoglycemia #GERD -Continue PPI #Depression/anxiety -Continue home medications # Documented history of RA -Continue outpatient follow-up #DVT ppx: SCDs Cherelle Kaplan MD Charges/Coding Visit Charges Inpatient E&M: 76580 Init Hosp L2
[2025-02-20 19:15] LABS: Troponin T High Sens 4 HR < 6 ng/L (<=14)
--- NOTE | 2025-02-20 19:45 | EKG12_ITS ---
Test Reason : CHEST PAIN Blood Pressure : */* mmHG Vent. Rate : 68 BPM Atrial Rate : 68 BPM P-R Int : 144 ms QRS Dur : 84 ms QT Int : 412 ms P-R-T Axes : 41 24 38 degrees QTcB Int : 438 ms Normal sinus rhythm Normal ECG Confirmed by Fred Saldana [id number]), script editor NICK RIVERA ([id number]) on 02/21/2025 1:49:01 PM Referred By: Confirmed By: Fred Saldana
[2025-02-20] MEDS: 0.9% Saline Lock 10 ML Syringe IV (20:12)
[2025-02-20] MEDS: 0.9% Normal Saline (1000mL) 1,000 ML 50 ML IV (20:12)
--- OUTSIDE RECORDS SUMMARY | 2025-02-20 20:43 | XMS RPT_ITS | CCD ---
Author Organization [facility] Care Team Providers Care Product Craftsman Name Role Phone CORDELL SLATER Unavailable Unavailable Dr. Richie Bal Primary Care Provider [phone] Dr. Richie Bal Attending Provider [phone] Dr. Richie Bal Referring Provider [phone] Dr. Adan Tse Attending Provider Dr. Agata Ricardo Attending Provider Dr. Oskar Olsen Attending Provider [phone] WILTON Guillen Attending Provider Dr. Richie Bal Primary Care Provider [phone] Dr. Richie Bal Referring Provider [phone] TATIANA Lincoln Attending Provider Unavailab WILTON Urbano Attending Provider Dr. Agata Ricardo Attending Provider Dr. Alek Mims Attending Provider Dr. Oskar Olsen Attending Provider Roof DIRECTOR OF GUIDANCE, DIRECTOR OF GUIDANCE-Lindsay Morales Attending Provider Roof DIRECTOR OF GUIDANCE, DIRECTOR OF GUIDANCE-C Darrius Morales Referring Provider Roof DIRECTOR OF GUIDANCE, DIRECTOR OF GUIDANCE-C Darrius Morales Other Provider Dr. Adan Tse Attending Provider Dr. Richie Bal Primary Care Provider [phone] Dr. Richie Bal Referring Provider [phone] TATIANA Lincoln [facility] Rich[facility] Primary Care Provider [phone] Dr. Richie Bal Referring Provider [phone] Roof DIRECTOR OF GUIDANCE, DIRECTOR OF GUIDANCE-C Darrius H Attending Provider Roof DIRECTOR OF GUIDANCE, DIRECTOR OF GUIDANCE-C Darrius H Referring Provider Roof DIRECTOR OF GUIDANCE, DIRECTOR OF GUIDANCE-C Darrius H Other Provider Dr. Oskar Olsen Attending Provider Dr. Adan Tse Attending Provider Barroso DIRECTOR OF GUIDANCE, DIRECTOR OF GUIDANCEDominiqueC Greer Attending Provider Dr. Richie Bal Attending Provider [phone] DO Felicita Hill Primary Care Provider Dr. Richie Bal Primary Care Provider [phone] Dr. Richie Bal Referring Provider [phone] Dr. Adan Tse Attending Provider Dr. Agata Ricardo Attending Provider Dr. Richie Bal Primary Care Provider [phone] Dr. Richie Bal Attending Provider [phone] Dr. Richie Bal Referring Provider [phone] Dr. Adan Tse Attending Provider DO Felicita Hill Primary Care Provider Dr. Agata Ricardo Attending Provider DO Felicita Hill Referring Provider Cal DIRECTOR OF GUIDANCE, DIRECTOR OF GUIDANCEVeronika Jorge Attending Provider DO Felicita Hill Primary Care Provider DO Felicita Hill Referring Provider Dr. Adan Tse Attending Provider TATIANA Shah Attending Provider Dr. Oskar Olsen Attending Provider Liz, DO Felicita M Primary Care Provider Liz, DO Felicita M Referring Provider Dr. Adan Tse Attending Provider Dr. Alek Mims Attending Provider Dr. Alek Mims Referring Provider Dr. Alek Mims Other Provider Dr. Agata Ricardo Attending Provider TATIANA Melchor Attending Provider Dr. Renae Marinelli Emergency Provider Dr. Alek Leon Admit Provider 1([facility])[phone] Alek Leon Attending Provider Dr. Alek Leon Other Provider Dr. Efraín Vila Attending Provider Dr. Mabel Ortiz Attending Provider Dr. Mabel Ortiz Other Provider Dr. Richie Bal Referring Provider 1([facility])[phone] Liz, DO Felicita M Primary Care Provider Liz, DO Felicita M Referring Provider Dr. Alek Mims Attending Provider Dr. Oskar Olsen Attending Provider Dr. Richie Bal Referring Provider Dr. Efraín Vila Attending Provider Dr. Agata Rciardo Attending Provider Liz, DO Felicita M Primary Care Provider Liz, DO Felicita M Referring Provider Dr. Agata Ricardo Attending Provider Angel MYERS, Aquiles Unavailable Jonna SHARMA, Kimberlyn Unavailable Unavailable Valeriano MYERS, Richie Juarez Primary Care Provider [phone] RICHIE BAL Primary Care Unavailable Doris Tobin Attending Unavailable Charlee, Chalon Primary Care Unavailable Alek Mims Attending Unavailable Charlee, Chalon Referring Unavailable Charlee, Chalon Primary Care Unavailable Raúl, [place] Attending Unavailable Gilda DIRECTOR OF GUIDANCE, Imani Attending Unavailable Charlee, Chalon Primary Care Unavailable Charlee, Chalon Referring Unavailable Charlee, Chalon Referring Unavailable Lay Sheth Attending Unavailable Charlee, Chalon Primary Care Unavailable Charlee, Chalon Referring Unavailable Gilda DIRECTOR OF GUIDANCE, Imani Attending Unavailable Charlee, Chalon Primary Care Unavailable Charlee, Chalon Primary Care Unavailable Cal KEITH, Ania Attending Unavailable Felicita Hill Referring Unavailable Friend, Efraín Attending Unavailable Charlee, Chalon Primary Care Unavailable LizFelicita Referring Unavailable Charlee, Chalon Primary Care Unavailable Cal KEITH, Ania Attending Unavailable Raúl, [place] Attending Unavailable Charlee, Chalon Primary Care Unavailable Charlee, Chalon Primary Care Unavailable Cal KEITH, Ania Attending Unavailable Felicita Hill Primary Care Unavailable Adan Tse Attending Unavailable LizFelicita M Referring Unavailable Charlee, Chalon Primary Care Unavailable Cal KEITH, Ania Referring Unavailable Raúl, [place] Attending Unavailable Charlee, Chalon Referring Unavailable Charlee, Chalon Primary Care Unavailable Cindy Johnson Attending Unavail able Charlee, Chalon Primary Care Unavailable Cal KEITH, Ania Referring Unavailable Cal KEITH, Ania Attending Unavailable Friend, Efraín Referring Unavailable Friend, Efraín Attending Unavailable Charlee, Chalon Primary Care Unavailable Charlee, Chalon Referring Unavailable Charlee, Chalon Primary Care Unavailable Cindy Johnson Attending Unavail able Friend, Efraín Referring Unavailable Friend, Efraín Attending Unavailable Charlee, Chalon Primary Care Unavailable Charlee, Chalon Primary Care Unavailable Renae Marinelli Attending Unavailable Charlee, Chalon Primary Care Unavailable Cal KEITH, Ania Referring Unavailable Cal KEITH, Ania Attending Unavailable Gilda DIRECTOR OF GUIDANCE, Imani Referring Unavailable Gilda DIRECTOR OF GUIDANCE, Imani Attending Unavailable Gaurav Deshpande Primary Care Unavailable Allergies Allergy Classification Reported Allergen(s) Allergy Type Date of Onset Reaction(s) Facility (3 sources) acetaminophen / HYDROcodone; Translations: [HYDROCODONE-ACETA MINOPHEN] Drug Allergy 11-11-19 06 Other: See Comments [facility] Repository (3 sources) acetaminophen / oxyCODONE; Translations: [OXYCODONE-ACETAMI NOPHEN] Drug Allergy 07-13-20 11 [facility] Repository (19 sources) codeine; Translations: [CODEINE] Drug Allergy 07-13-20 11 Anaphylaxis [facility] Repository (3 sources) diflorasone; Translations: [DIFLORASONE] Drug Allergy 07-23-20 05 Other: See Comments [facility] Repository (3 sources) glyBURIDE / metFORMIN; Translations: [GLYBURIDE-METFORM IN] Drug Allergy 11-26-19 12 [facility] Repository (3 sources) lansoprazole; Translations: [LANSOPRAZOLE] Drug Allergy 11-18-19 11 Anaphylaxis [facility] Repository (3 sources) metFORMIN; Translations: [METFORMIN] Drug Allergy 04-01-20 12 Vomiting [facility] Repository (19 sources) morphine; Translations: [MORPHINE] Drug Allergy 10-10-19 06 Mental Status Change [facility] Repository (19 sources) Sulfonamides (Antibiotic); Translations: [SULFA (SULFONAMIDE ANTIBIOTICS)] Propensity to adverse reactions to drug (disorder) 11-18-19 11 [facility] Repository (2 sources) OTHER; Translations: [OTHER] Propensity to adverse reactions (disorder) 07-23-20 05 AOF [facility] Repository (3 sources) FISH; Translations: [FISH] Propensity to adverse reactions to food (disorder) 12-23-19 12 Swelling [facility] Repository (3 sources) PROPOXYPHENE N-ACETAMINOPHEN; Translations: [PROPOXYPHENE N-ACETAMINOPHEN] Propensity to adverse reactions to drug (disorder) 07-23-20 05 Other: See Comments [facility] Repository (19 sources) NITROFURANTOIN MACROCRYSTALLINE; Translations: [NITROFURANTOIN MACROCRYSTALLINE] Propensity to adverse reactions to drug (disorder) 07-23-20 05 Other: See Comments [facility] Other [place] Repository (15 sources) Calcium Carbonate Drug Allergy 11-11-19 unknown [facility] (15 sources) egg extract Drug Allergy 11-11-19 Anaphylaxis [facility] (16 sources) Fish derivative; Translations: [fish derived] Allergy to substance 11-11-19 Unknown [facility] (16 sources) oxyCODONE; Translations: [oxycodone HCl] Drug Allergy 11-11-19 unknown [facility] (16 sources) Propoxyphene; Translations: [propoxyphene napsylate] Drug Allergy 11-11-19 unknown [facility] (15 sources) Sodium Fluoride Drug Allergy 11-11-19 [facility] (17 sources) Tamoxifen; Translations: [TAMOXIFEN] Drug Allergy 02-29-20 Rash, Itching, Angioedema [facility] (7 sources) dulaglutide Drug Allergy 02-05-20 Diarrhea [facility] (7 sources) glimepiride Drug Allergy 02-05-20 23 Diarrhea [facility] (2 sources) Lisinopril; Translations: [LISINOPRIL] Drug Allergy 04-04-20 Other: See Comments [facility] (1 source) eggs [Other] Propensity to adverse reactions 07-23-20 05 Shortness of Breath [facility] (1 source) Calcium Carbonate Drug Allergy 09-21-19 25 [facility] Repository (1 source) dulaglutide Drug Allergy 09-21-19 25 [facility] Repository (1 source) egg extract Drug Allergy 09-21-19 25 [facility] Repository (1 source) glimepiride Drug Allergy 09-21-19 25 [facility] Repository (1 source) Sodium Fluoride Drug Allergy 09-21-19 25 [facility] Repository (1 source) Tamoxifen Drug Allergy 09-21-19 [facility] Repository Medications Current Medications Medication Drug Class(es) Dates Sig (Normalized) Sig (Original) 8 hr acetaminophen 650 mg extended release oral tablet (1 source) Start: 06-28-2018 take 1 tablet by mouth every eight hours as needed acetaminophen (TYLENOL ARTHRITIS PAIN) 650 mg CR tablet Take 1 tablet by mouth every 8 hours as needed. 06/28/2018 Active [id number] 200 actuat albuterol 0.09 mg/actuat metered dose inhaler (20 sources) beta2-Adrenergic Agonist Start: 07-15-2022 take 1 puff(s) by inhalation every six hours Albuterol Sulfate (Ventolin Hfa) 90 mcg/actuation HFA aerosol inhaler Active 2 PUFF INHALATION EVERY 6 HOURS July 15, 2022 1:00am Start: 10-22-2020 End: 10-22-2020 albuterol sulfate Discontinu ed 2.5 MG continuous nebulization ONCE 1 October 22, 2020 10:56am October 22, 2020 11:52am Start: 10-22-2020 End: 02-16-2022 take 1.25 mg by inhalation every four hours Albuterol Sulfate Discontinued 1.25 MG INHALATION Q4H 90 October 22, 2020 12:00am February 16, 2022 1:49pm Start: 12-01-2018 take 2 puff(s) by in halation every four hours as needed for wheezing albuterol HFA (VENTOLIN HFA) 90 mcg/actuation inhaler Inhale 2 Puffs as instructed every 4 hours as needed for Wheezing/Shortness of Breath. 1 Inhaler 11 12/01/2018 Active Start: 11-12-2017 albuterol (PRO VENTIL) 2.5 mg /3 mL (0.083 %) nebulizer solution Indications: Mild intermittent asthma without complication Use 3 mL via nebulizer every 6 hours as needed for Wheezing/Shortness of Breath. Use over 5-15minutes. 100 Vial 5 11/12/2017 Active Start: 11-10-2016 take 1 puff(s) by in halation every six hours as needed Albuterol Sulfate Active 2 PUFF INHALATION EVERY 6 HOURS NEEDED November 10, 2016 11:36am Start: 11-10-2016 End: 02-16-2022 take 1 puff(s) by inhalation every six hours as needed Albuterol Sulfate Discontinued 2 PUFF INHALATION EVERY 6 HOURS NEEDED November 09, 2016 11:00pm February 16, 2022 12:49pm Start: 11-10-2016 End: 02-16-2022 take 1 puff(s) by inhalation every six hours as needed Albuterol Sulfate Discontinued 2 PUFF INHALATION EVERY 6 HOURS NEEDED November 10, 2016 12:00am February 16, 2022 1:49pm anastrozole 1 mg oral tablet (20 sources) Aromatase Inhibitor Start: 03-14-2019 End: 12-22-2022 take 1 mg by mouth once daily Anastrozole Active 1 MG PO DAILY December 22, 2022 1:45pm aspirin 81 mg delayed release oral tablet (16 sources) Platelet Aggregation Inhibitor, Nonsteroidal Anti-inflammatory Drug Start: 05-14-2017 take 81 mg by mouth once daily Aspirin Active 81 MG PO DAILY@0800 October 12, 2018 12:00am Blood-Glucose Meter (ACCU-CHEK GWENDOLYN PLUS METER) misc (1 source) Start: 10-17-2018 Blood-Glucose Meter (ACCU-CHEK GWENDOLYN PLUS METER) [facility] Indications: Diabetes mellitus type 2, uncontrolled, without complications Test blood sugar as director ICD-10: E11.65 1 Each 10/17/2018 Active Blood-Glucose Meter (Accu-Chek Guide Glucose Meter) misc (4 sources) Start: 07-01-2023 Blood-Glucose Meter (Accu-Chek Guide Glucose Meter) [facility] Active 0 .Route 1 July 01, 2023 4:51pm As directed Start: 07-01-2023 Blood-Glucose Meter (Accu-Chek Guide Glucose Meter) [facility] Active 0 .Route July 01, 2023 3:51pm As directed Start: 07-01-2023 End: 07-01-2023 Blood-Glucose Meter (Accu-Ch ek Guide Glucose Meter) [facility] Discontinued 0 .Route July 01, 2023 1:00am July 01, 2023 4:52pm As directed Start: 07-01-2023 End: 07-01-2023 Blood-Glucose Meter (Accu-Ch ek Guide Glucose Meter) [facility] Discontinued 0 .Route July 01, 2023 12:00am July 01, 2023 3:52pm As directed 12 hr buPROPion hydrochloride 150 mg extended release oral tablet (7 sources) Aminoketone Start: 02-04-2023 take 1 tablet by mouth once daily Bupropion Hcl (Wellbutrin Sr) 150 mg tablet sustained-release 12 hr Active 150 MG PO DAILY February 04, 2023 12:00am Start: 02-04-2023 take 1 tablet by xena th twice daily Bupropion Hcl (Wellbutrin Sr) 150 mg tablet sustained-release 12 hr Active 150 MG PO TWICE A DAY February 04, 2023 12:00am calcium carbonate 1250 mg / cholecalciferol 0.01 mg chewable tablet (1 source) Vitamin D Start: 04-04-2019 take 1 tablet by mouth twice daily calcium carbonate-vitamin D3 (OSCAL+D) 500 mg(1,250mg) -400 unit chewable tablet Take 1 tablet by mouth twice daily. 180 tablet 3 04/04/2019 Active calcium carbonate 200 mg calcium (500 mg)-vitamin D3 400 unit tablet (15 sources) Start: 08-26-2020 take 1 tablet by mouth twice daily calcium carbonate 200 mg calcium (500 mg)-vitamin D3 400 unit tablet Active 1 TABLET PO TWICE A DAY August 26, 2020 2:55pm Start: 08-26-2020 take 1 tablet by xena th twice daily calcium carbonate 200 mg calcium (500 mg)-vitamin D3 400 unit tablet Active 1 TABLET PO TWICE A DAY August 26, 2020 12:00am Start: 08-26-2020 take 1 tablet by xena th twice daily calcium carbonate 200 mg calcium (500 mg)-vitamin D3 400 unit tablet Active 1 TABLET PO TWICE A DAY August 26, 2020 1:00am clopidogrel 75 mg oral tablet (20 sources) [id number] Platelet Inhibitor Start: 01-19-2019 End: 10-30-2021 take 1 tablet by mouth once daily clopidogrel (PLAVIX) 75 mg tablet Take 1 tablet by mouth once daily. 90 tablet 3 04/04/2019 Active dicyclomine hydrochloride 10 mg oral capsule (5 sources) Anticholinergic Start: 05-12-2023 take 10 mg by mouth three times daily before mealtime Dicyclomine Active 10 MG PO THREE TIMES DAILY BEFORE MEALS 90 May 12, 2023 2:27pm flash glucose scanning reader (FREESTYLE ABHINAV 14 DAY READER) [facility] (1 source) Start: 02-14-2019 flash glucose scanning reader (FREESTYLE ABHINAV 14 DAY READER) [facility] Use to test blood sugars with Freestyle Abhinav sensors as directed. 1 Each 02/14/2019 Active flash glucose sensor (FREESTYLE ABHINAV 14 DAY SENSOR) kit (1 source) Start: 01-03-2019 flash glucose sensor (FREESTYLE ABHINAV 14 DAY SENSOR) kit Apply sensor to back of arm to check blood sugars as directed. Change sensor every 2 weeks and rotate arms. 2 Kit 11 01/03/2019 Active Flash Glucose Sensor (Freestyle Abhinav 2 Sensor) kit (14 sources) Start: 09-08-2023 Flash Glucose Sensor (Freestyle Abhinav 2 Sensor) kit Active 0 .Route 2 September 08, 2023 9:36am As directed Start: 09-08-2023 Flash Glucose Sensor (Freestyle Abhinav 2 Sensor) kit Active 0 .Route 2 September 08, 2023 8:36am As directed Start: 05-14-2022 End: 09-08-2023 Flash Glucose Sensor (Freest yle Abhinav 2 Sensor) kit Discontinued 0 .Route 2 May 14, 2022 12:00am September 08, 2023 9:36am As directed Start: 05-14-2022 End: 09-08-2023 Flash Glucose Sensor (Freest yle Abhinav 2 Sensor) kit Discontinued 0 .Route 2 May 13, 2022 11:00pm September 08, 2023 8:36am As directed Start: 05-14-2022 Flash Glucose Sensor (Freestyle Abhinav 2 Sensor) kit Active 0 .Route 2 May 13, 2022 11:00pm As directed Start: 05-14-2022 Flash Glucose Sensor (Freestyle Abhinav 2 Sensor) kit Active 0 .Route 2 May 14, 2022 12:00am As directed Fluticasone Propion-Salmeterol (20 sources) Corticosteroid, beta2-Adrenergic Agonist Start: 02-19-2023 Fluticasone Propion-Salmeterol Active 1 EACH INHALATION TWICE A DAY February 18, 2023 11:00pm Start: 02-19-2023 Fluticasone Pr opion-Salmeterol Active 1 EACH INHALATION TWICE A DAY February 19, 2023 12:00am Start: 10-22-2020 End: 02-19-2023 Fluticasone Propion-Salmeter ol Discontinued 1 EACH INHALATION TWICE A DAY 60 October 22, 2020 12:15pm February 19, 2023 11:12am Start: 10-22-2020 End: 02-19-2023 Fluticasone Propion-Salmeter ol Discontinued 1 EACH INHALATION TWICE A DAY 60 October 22, 2020 1:15pm February 19, 2023 12:12pm Start: 10-22-2020 Fluticasone Pr opion-Salmeterol Active 1 EACH INHALATION TWICE A DAY 60 October 22, 2020 12:15pm Start: 10-22-2020 Fluticasone Pr opion-Salmeterol Active 1 EACH INHALATION TWICE A DAY 60 October 22, 2020 1:15pm Start: 10-14-2018 take 1 puff(s) by mo ut twice daily fluticasone-salmeterol (ADVAIR DISKUS) 250-50 mcg/dose dsdv Inhale 1 Puff as instructed twice daily. Rinse and gargle mouth after use with water. 10/14/2018 Active Start: 11-10-2016 End: 10-22-2020 take 1 puff(s) by inhalation twice daily Fluticasone Propion-Salmeterol Discontinued 1 PUFF INHALATION TWICE A DAY November 10, 2016 11:26am October 22, 2020 1:15pm Start: 11-10-2016 End: 10-22-2020 take 1 puff(s) by inhalation twice daily Fluticasone Propion-Salmeterol Discontinued 1 PUFF INHALATION TWICE A DAY November 09, 2016 11:00pm October 22, 2020 12:15pm Start: 11-10-2016 End: 10-22-2020 take 1 puff(s) by inhalation twice daily Fluticasone Propion-Salmeterol Discontinued 1 PUFF INHALATION TWICE A DAY November 10, 2016 12:00am October 22, 2020 1:15pm glucagon (GLUCAGON EMERGENCY KIT, HUMAN,) 1 mg solr (1 source) Start: 11-18-2018 inject 1 mg by intramuscular injection once glucagon (GLUCAGON EMERGENCY KIT, HUMAN,) 1 mg solr Inject 1 mg intramuscularly one time only for 1 dose. 1 mg 5 11/18/2018 Active glucose 4000 mg chewable tablet (1 source) Start: 09-03-2017 glucose 4 gram chewable tablet Indications: Uncontrolled type 2 diabetes mellitus without complication, with long-term current use of insulin Take 4 tablets by mouth as needed for Low Blood Sugar. 50 tablet 3 09/03/2017 Active Insulin Glargine (Lantus U-100 Insulin) 100 unit/mL solution (14 sources) Start: 05-27-2023 Insulin Glargi ne (Lantus U-100 Insulin) 100 unit/mL solution Active 42 UNIT SC AT BEDTIME May 27, 2023 8:01am Start: 05-27-2023 Insulin Glargi ne (Lantus U-100 Insulin) 100 unit/mL solution Active 42 UNIT SC AT BEDTIME May 27, 2023 9:01am Start: 05-11-2023 End: 05-27-2023 Insulin Glargine (Lantus U-1 00 Insulin) 100 unit/mL solution Discontinued 40 UNIT SC AT BEDTIME May 10, 2023 11:00pm May 27, 2023 8:02am Start: 05-11-2023 End: 05-27-2023 Insulin Glargine (Lantus U-1 00 Insulin) 100 unit/mL solution Discontinued 40 UNIT SC AT BEDTIME May 11, 2023 12:00am May 27, 2023 9:02am Start: 05-11-2023 Insulin Glargi ne (Lantus U-100 Insulin) 100 unit/mL solution Active 40 UNIT SC AT BEDTIME May 11, 2023 12:00am Start: 02-19-2023 End: 05-07-2023 Insulin Glargine (Lantus U-1 00 Insulin) 100 unit/mL solution Discontinued 40 UNIT SC AT BEDTIME February 18, 2023 11:00pm May 07, 2023 12:27pm Start: 02-19-2023 End: 05-07-2023 Insulin Glargine (Lantus U-1 00 Insulin) 100 unit/mL solution Discontinued 40 UNIT SC AT BEDTIME February 19, 2023 12:00am May 07, 2023 1:27pm Start: 02-19-2023 Insulin Glargi ne (Lantus U-100 Insulin) 100 unit/mL solution Active 40 UNIT SC AT BEDTIME February 19, 2023 12:00am lubiprostone 0.008 mg oral capsule (2 sources) Chloride Channel Activator Start: 06-23-2023 take 1 capsule by mouth twice daily Lubiprostone (Amitiza) 8 mcg capsule Active 8 MCG PO TWICE A DAY 60 June 23, 2023 1:00am meclizine hydrochloride 25 mg oral tablet (16 sources) Antiemetic Start: 07-14-2020 take 25 mg by mouth three times daily as needed Meclizine Active 25 MG PO 3 TIMES DAILY NEEDED July 14, 2020 1:00am take 1 tablet by xnea th every six hours as needed meclizine (ANTIVERT) 25 mg tab Take 25 m g by mouth every 6 hours as needed. Active nystatin [id number] unt/ml topical cream (1 source) Polyene Antifungal Start: 09-29-2018 nystatin (MYCOSTATIN) cream Indications: Skin abnormality Apply 1 application to affected area twice daily. 15 g 1 09/29/2018 Active omeprazole 40 mg delayed release oral capsule (20 sources) Proton Pump Inhibitor Start: 07-15-2022 End: 08-05-2022 take 40 mg by mouth once daily Omeprazole Active 40 MG PO DAILY August 05, 2022 11:51am ondansetron 4 mg disintegrating oral tablet (7 sources) Serotonin-3 Receptor Antagonist Start: 02-15-2023 take 4 mg by mouth every six hours Ondansetron Active 4 MG PO EVERY 6 HOURS February 15, 2023 12:00am 24 hr oxybutynin chloride 10 mg extended release oral tablet (20 sources) Cholinergic Muscarinic Antagonist Start: 05-27-2023 take 20 mg by mouth once daily Oxybutynin Chloride Active 20 MG PO DAILY May 27, 2023 9:02am Start: 11-10-2021 End: 05-27-2023 take 10 mg by mouth once daily Oxybutynin Chloride Dis continued 10 MG PO DAILY August 07, 2022 11:08am May 27, 2023 9:02am Start: 03-17-2021 End: 11-10-2021 take 1 tablet by mouth once daily oxybutynin XL (DITROPAN XL) 5 mg 24 hr tablet Take 5 mg by mouth once daily. 03/17/2021 Active oxyCODONE hydrochloride 5 mg oral tablet (11 sources) Opioid Agonist Start: 11-04-2023 take 5 mg by mouth every eight hours Oxycodone Active 5 MG PO Q8H 10 November 04, 2023 Start: 03-31-2023 End: 05-11-2023 take 5 mg by mouth every six hours Oxycodone Discontinued 5 MG PO EVERY 6 HOURS 19 12March 31, 2023 May 11, 2023 10:08pm Start: 02-23-2023 End: 03-31-2023 take 5-10 mg by mouth every four hours Oxycodone Discontinued 5 - 10 MG PO Q4H 30 5 February 23, 2023 March 31, 2023 9:47am predniSONE 20 mg oral tablet (20 sources) Start: 11-04-2023 take 40 mg by mouth once daily Prednisone Active 40 MG PO DAILY November 04, 2023 12:00am Start: 10-22-2020 End: 11-25-2020 take 40 mg by mouth once daily Prednisone Discontinued 40 MG PO DAILY October 22, 2020 12:00am November 25, 2020 1:54pm Start: 07-12-2020 End: 09-24-2020 take 40 mg by mouth once daily at mealtime Prednisone Discontinued 40 MG PO daily July 12, 2020 1:00am September 24, 2020 11:12am administer with food or milk PSYLLIUM SEED, WITH SUGAR, (METAMUCIL ORAL) (1 source) PSYLLIUM SEED, W ITH SUGAR, (METAMUCIL ORAL) Take by mouth as needed. Active 12 hr ranolazine 500 mg extended release oral tablet (20 sources) Anti-anginal Start: 04-04-2019 take 1 tablet by mouth every twelve hours ranolazine ER (RANEXA) 500 mg 12 hr tablet Take 1 tablet by mouth every 12 hours. 180 tablet 3 04/04/2019 Active Start: 03-30-2019 End: 10-30-2021 take 1 tablet by mouth twice daily Ranolazine (Ranexa) 500 mg tablet extended release 12 hr Discontinued 500 MG PO TWICE A DAY 180 October 21, 2021 8:33am October 30, 2021 2:23pm rosuvastatin calcium 40 mg oral tablet (20 sources) HMG-CoA Reductase Inhibitor Start: 01-26-2019 End: 09-09-2023 take 1 tablet by mouth once daily rosuvastatin (CRESTOR) 40 mg tablet Take 1 tablet by mouth once daily. 90 tablet 3 04/04/2019 Active Start: 11-10-2016 End: 10-12-2018 take 10 mg by mouth at bedtime Rosuvastatin Discontinu ed 10 MG PO AT BEDTIME November 10, 2016 12:00am October 12, 2018 1:41pm traMADol hydrochloride 50 mg oral tablet (4 sources) Opioid Agonist Start: 05-19-2023 take 50 mg by mouth every eight hours Tramadol Active 50 MG PO Q8H May 19, 2023 12:00am Completed/Discontinued Medications Medication Drug Class(es) Dates Sig (Normalized) Sig (Original) acetaminophen 325 mg / HYDROcodone bitartrate 5 mg oral tablet (20 sources) Opioid Agonist Start: 02-15-2023 End: 02-23-2023 take 1 tablet by mouth every six hours as needed Hydrocodone-Acetami nophen Discontinued 1 TABLET PO EVERY 6 HOURS NEEDED 16 February 19, 2023 February 23, 2023 12:04am Start: 12-05-2018 End: 12-10-2018 Hydrocodone-Acetaminophen Di scontinued 1 EACH PO EVERY 8 HOURS 15 December 05, 2018 3:13pm December 10, 2018 12:07am amoxicillin 875 mg / clavulanate 125 mg oral tablet (20 sources) Penicillin-class Antibacterial Start: 10-22-2020 End: 11-25-2020 take 1 tablet by mouth every twelve hours Amoxicillin-Pot Clavulanate Discontinued 1 TABLET PO Q12H October 22, 2020 12:00am November 25, 2020 1:53pm Start: 07-12-2020 End: 09-24-2020 take 1 tablet by mouth twice daily Amoxicillin-Pot Clavulanate (Augmentin) 875-125 mg tablet Discontinued 1 TABLET PO TWICE A DAY July 12, 2020 1:00am September 24, 2020 11:11am benzonatate 200 mg oral capsule (13 sources) Non-narcotic Antitussive Start: 04-15-2022 End: 07-15-2022 take 200 mg by mouth three times daily Benzonatate Discontinued 200 MG PO THREE TIMES A DAY April 15, 2022 12:00am July 15, 2022 11:23am Blood-Glucose Meter (Accu-Chek Gwendolyn Plus Meter) misc (13 sources) Start: 02-16-2022 End: 02-04-2023 Blood-Glucose Meter (Accu-Chek Gwendolyn Plus Meter) misc Discontinued 0 .Route February 15, 2022 11:00pm February 04, 2023 11:07am As directed Start: 02-16-2022 End: 02-04-2023 Blood-Glucose Meter (Accu-Ch ek Gwendolyn Plus Meter) mis Discontinued 0 .Route 1 February 16, 2022 12:00am February 04, 2023 12:07pm As directed Start: 02-16-2022 Blood-Glucose Meter (Accu-Chek Gwendolyn Plus Meter) misc Active 0 .Route February 15, 2022 11:00pm As directed Start: 02-16-2022 Blood-Glucose Meter (Accu-Chek Gwendolyn Plus Meter) [facility] [place] Active 0 .Route February 16, 2022 12:00am As directed busPIRone hydrochloride 10 mg oral tablet (20 sources) Start: 08-16-2019 End: 02-19-2023 take 10 mg by mouth twice daily Buspirone Discontinued 10 MG PO TWICE A DAY 180 August 07, 2022 11:07am February 19, 2023 9:54am Start: 04-18-2019 take 1 tablet by xena th twice daily busPIRone (BUSPAR) 5 mg tablet Indications: TONI (generalized anxiety disorder) Take 1 tablet by mouth twice daily. 180 tablet 3 04/18/2019 Active Start: 01-06-2019 End: 08-16-2019 take 5 mg by mouth once daily Buspirone Discontinued 5 MG PO DAILY 60 30 January 06, 2019 12:00am August 16, 2019 9:55am calcium carbonate 1250 mg oral tablet (15 sources) Start: 07-12-2019 End: 05-27-2020 take 1 tablet by mouth twice daily Calcium Carbonate (Calcium 500) 500 mg calcium (1,250 mg) tablet Discontinued 500 MG PO TWICE A DAY July 12, 2019 1:00am May 27, 2020 12:32pm carvedilol 6.25 mg oral tablet (20 sources) alpha-Adrenergi c Vikas, beta-Adrenergic Vikas Start: 10-19-2019 End: 02-28-2020 take 6.25 mg by mouth twice daily at mealtime Carvedilol Discontinued 6.25 MG PO TWICE DAILY WITH MEALS October 19, 2019 10:54am February 28, 2020 12:12pm Start: 04-04-2019 End: 12-22-2022 take 6.25 mg by mouth twice daily Carvedilol Discontinued 6.25 MG PO TWICE A DAY 180 October 12, 2022 3:02pm December 22, 2022 2:26pm Start: 03-15-2019 End: 10-19-2019 take 12.5 mg by mouth twice daily at mealtime Carvedilol Discontinued 12.5 MG PO TWICE DAILY WITH MEALS 180 March 30, 2019 6:51am October 19, 2019 10:56am Start: 02-27-2019 End: 03-28-2019 take 6.25 mg by mouth twice daily at mealtime Carvedilol Discontinued 6.25 MG PO TWICE A DAY 60 February 27, 2019 12:00am March 28, 2019 3:44pm must administer with a meal/food Start: 10-12-2018 End: 02-27-2019 take 3.125 mg by mouth twice daily Carvedilol Discontinued 3.125 MG PO TWICE A DAY 60 December 01, 2018 5:39pm February 27, 2019 1:23pm cephalexin 500 mg oral capsule (10 sources) Cephalosporin Antibacterial Start: 07-15-2022 End: 09-23-2022 take 500 mg by mouth every twelve hours Cephalexin Discontinued 500 MG PO Q12H 20 July 15, 2022 1:00am September 23, 2022 3:52pm citalopram 20 mg oral tablet (20 sources) Serotonin Reuptake Inhibitor Start: 12-04-2020 End: 12-23-2020 take 20 mg by mouth at bedtime Citalopram Discontinued 20 MG PO AT BEDTIME December 04, 2020 12:00am December 23, 2020 5:04pm Start: 05-27-2020 End: 09-24-2020 take 30 mg by mouth once daily Citalopram Discontinued 30 MG PO DAILY 60 August 12, 2020 6:35pm September 24, 2020 11:32am Start: 07-12-2019 End: 05-09-2020 take 40 mg by mouth once daily Citalopram Discontinued 40 MG PO DAILY 180 September 28, 2019 11:15am May 09, 2020 10:30am Start: 11-10-2016 End: 05-27-2020 take 20 mg by mouth once daily Citalopram Discontinued 20 MG PO DAILY May 09, 2020 10:29am May 27, 2020 12:32pm donepezil hydrochloride 5 mg oral tablet (15 sources) Start: 05-27-2020 End: 10-30-2021 take 5 mg by mouth at bedtime Donepezil Discontinued 5 MG PO AT BEDTIME May 27, 2020 12:00am October 30, 2021 2:06pm doxycycline monohydrate 100 mg oral tablet (20 sources) Tetracycline -class Drug Start: 07-12-2020 End: 09-24-2020 take 100 mg by mouth twice daily Doxycycline Monohydrate Discontinued 100 MG PO TWICE A DAY July 12, 2020 1:00am September 24, 2020 11:11am Start: 05-27-2020 End: 06-24-2020 take 100 mg by mouth twice daily Doxycycline Hyclate Discontinued 100 MG PO TWICE A DAY May 27, 2020 12:00am June 24, 2020 12:05pm 0.5 ml dulaglutide 1.5 mg/ml auto-injector (7 sources) GLP-1 Receptor Agonist Start: 01-05-2023 End: 01-11-2023 Dulaglutide (Trulicity) 0.75 mg/0.5 mL pen injector Discontinued 0.75 MG SC EVERY WEEK 2 January 05, 2023 12:00am January 11, 2023 9:48am DULoxetine 30 mg delayed release oral capsule (20 sources) Serotonin and Norepinephrine Reuptake Inhibitor Start: 11-10-2021 End: 08-07-2022 take 30 mg by mouth twice daily Duloxetine Discontinued 30 MG PO TWICE A DAY 180 January 14, 2022 1:20pm August 07, 2022 11:08am Start: 12-04-2020 End: 10-30-2021 take 30 mg by mouth twice daily Duloxetine Discontinued 30 MG PO TWICE A DAY 180 July 14, 2021 3:48pm October 30, 2021 2:23pm Start: 09-24-2020 End: 11-13-2020 Duloxetine Discontinued 30 M G PO TWICE A DAY 60 September 24, 2020 1:00am November 13, 2020 9:52am Take 30 daily x 1 week then increase to BID Flash Glucose Sensor (Freest yle Abhinav 10 Day Sensor) kit (15 sources) Start: 08-16-2019 End: 08-16-2019 Flash Glucose Sensor (Freest yle Abhinav 10 Day Sensor) kit Discontinued 0 .ROUTE .MEDSUPPLY 1 August 16, 2019 9:55am August 16, 2019 5:25pm As directed Start: 08-16-2019 End: 08-16-2019 Flash Glucose Sensor (Freest yle Abhinav 10 Day Sensor) kit Discontinued 0 .ROUTE .MEDSUPPLY August 16, 2019 12:00am August 16, 2019 4:25pm As directed Start: 08-16-2019 End: 08-16-2019 Flash Glucose Sensor (Freest yle Abhinav 10 Day Sensor) kit Discontinued 0 .ROUTE .MEDSUPPLY August 16, 2019 1:00am August 16, 2019 5:25pm As directed folic acid 20 mg oral capsule (10 sources) Start: 07-15-2022 End: 02-19-2023 take 20 mg by mouth once daily Folic Acid Discontinued 20 MG PO DAILY July 15, 2022 1:00am February 19, 2023 9:54am glimepiride 4 mg oral tablet (14 sources) Sulfonylurea Start: 01-05-2023 End: 02-19-2023 take 4 mg by mouth twice daily Glimepiride Discontinued 4 MG PO TWICE A DAY January 05, 2023 11:50am February 19, 2023 9:54am Start: 01-05-2023 End: 01-05-2023 take 4 mg by mouth once daily Glimepiride Discontinued 4 MG PO DAILY January 05, 2023 12:00am January 05, 2023 11:50am hydrOXYzine pamoate 50 mg oral capsule (15 sources) Antihistamine Start: 05-27-2020 End: 05-27-2020 take 50 mg by mouth three times daily Hydroxyzine Pamoate Discontinued 50 MG PO THREE TIMES A DAY May 27, 2020 12:00am May 27, 2020 12:30pm insulin aspart, human 100 unt/ml injectable solution (20 sources) Insulin Analog Start: 10-08-2022 End: 03-15-2023 Insulin Aspart U-100 (Novolog U-100 Insulin Aspart) 100 unit/mL solution Discontinued 20 UNIT SC THREE TIMES A DAY January 11, 2023 9:49am March 15, 2023 2:08pm Start: 05-14-2022 insulin aspart U-100 (NOVOLOG) 100 unit/mL Sliding scale 05/14/2022 Active Start: 05-14-2022 End: 10-08-2022 Insulin Aspart U-100 (Novolo g U-100 Insulin Aspart) 100 unit/mL solution Discontinued 16 UNIT SC THREE TIMES A DAY October 08, 2022 5:23pm October 08, 2022 5:32pm insulin glargine 100 unt/ml injectable solution (20 sources) Insulin Analog Start: 05-07-2023 End: 05-11-2023 Insulin Glargine (Lantus U-100 Insulin) 100 unit/mL solution Discontinued 24 UNIT SC AT BEDTIME May 07, 2023 1:25pm May 11, 2023 10:09pm Start: 02-04-2023 End: 02-19-2023 Insulin Glargine (Lantus U-1 00 Insulin) 100 unit/mL solution Discontinued 40 UNIT SC DAILY February 04, 2023 12:04pm February 19, 2023 12:12pm Start: 05-14-2022 inject 20 [IU] by montoya bcutaneous injection twice daily insulin glargine (LANTUS) 100 unit/mL injection Inject 20 Units subcutaneously two times a day. 05/14/2022 Active Start: 05-14-2022 End: 02-04-2023 Insulin Glargine (Lantus U-1 00 Insulin) 100 unit/mL solution Discontinued 32 UNIT SC DAILY January 11, 2023 9:49am February 04, 2023 12:05pm insulin isophane, human 100 unt/ml injectable suspension (20 sources) Start: 08-07-2021 End: 07-02-2022 Insulin Nph Isoph U-100 Yolande n Discontinued 18 UNIT SC TWICE A DAY February 16, 2022 2:04pm July 02, 2022 5:59pm Start: 05-19-2021 End: 08-07-2021 Insulin Nph Isoph U-100 Yolande n Discontinued 13 UNIT SC TWICE A DAY May 19, 2021 2:20pm August 07, 2021 4:32pm Start: 11-11-2020 End: 05-19-2021 Insulin Nph Isoph U-100 Yolande n Discontinued 20 UNIT SC TWICE A DAY November 11, 2020 11:47am May 19, 2021 2:21pm Start: 04-04-2019 inject 18 [IU] by montoya bcutaneous injection before breakfast insulin NPH injection (HumuLIN N,NovoLIN N) Inject 18 units subcutaneously before breakfast and 18 Units before dinner 20 mL 11 04/04/2019 Active Start: 11-10-2016 End: 11-11-2020 inject 15 [IU] by subcutaneous injection twice daily Insulin Nph Isoph U-100 Human Discontinued 15 UNIT SQ TWICE A DAY November 10, 2016 12:00am November 11, 2020 11:48am insulin, regular, human 100 unt/ml injectable solution (20 sources) Insulin Start: 11-11-2020 End: 04-22-2022 Insulin Regular Human Discontinued 18 UNIT SC THREE TIMES A DAY February 16, 2022 2:05pm April 22, 2022 10:17am Start: 03-29-2020 End: 11-11-2020 Insulin Regular Human Discon tinued 10 UNIT SC THREE TIMES A DAY March 29, 2020 2:48pm November 11, 2020 11:48am Start: 01-04-2020 End: 03-29-2020 Insulin Regular Human Discon tinued 6 UNIT SC THREE TIMES A DAY January 04, 2020 10:21am March 29, 2020 2:49pm Start: 04-04-2019 insulin regula r human (NOVOLIN R REGULAR U-100 INSULN) 100 unit/mL injection Inject 13 Units subcutaneously three times daily before meals. (30 mins prior to meals) 10 mL 11 04/04/2019 Active Start: 11-10-2016 End: 01-04-2020 Insulin Regular Human Discon tinued 10 UNIT SC THREE TIMES A DAY July 12, 2019 11:19am January 04, 2020 10:21am isopropyl alcohol 0.7 ml/ml medicated pad (19 sources) Start: 03-27-2021 End: 08-26-2022 Alcohol Swabs Discontinued 1 PAD TOPICAL 4 TIMES DAILY March 27, 2021 12:00am August 26, 2022 12:34pm Start: 02-10-2018 alcohol swabs (ALCOHOL PREP SWABS) padm Indications: Uncontrolled type 2 diabetes mellitus without complication, with long-term current use of insulin Apply 1 application to affected area four times daily. 360 Each 3 02/10/2018 Active 24 hr isosorbide mononitrate 60 mg extended release oral tablet (20 sources) Nitrate Vasodilator Start: 04-22-2020 End: 05-09-2020 take 60 mg by mouth twice daily Isosorbide Mononitrate Discontinued 60 MG PO TWICE A DAY 180 April 22, 2020 11:33am May 09, 2020 10:30am DOSE RECENTLY CHANGED Start: 03-30-2019 End: 05-04-2023 take 60 mg by mouth once daily Isosorbide Mononitrate Discontinued 60 MG PO DAILY December 22, 2022 2:26pm May 04, 2023 12:01pm Start: 12-02-2018 End: 03-30-2019 take 60 mg by mouth twice daily Isosorbide Mononitrate Discontinued 60 MG PO TWICE A DAY December 02, 2018 1:27pm March 30, 2019 6:51am Start: 11-07-2018 End: 12-02-2018 take 60 mg by mouth once daily Isosorbide Mononitrate Discontinued 60 MG PO DAILY December 01, 2018 5:39pm December 02, 2018 1:27pm Start: 10-25-2018 End: 11-07-2018 take 30 mg by mouth once daily Isosorbide Mononitrate Discontinued 30 MG PO DAILY October 25, 2018 12:00am November 07, 2018 2:52pm linaclotide 0.145 mg oral capsule (2 sources) Guanylate Cyclase-C Agonist Start: 06-22-2023 End: 06-23-2023 take 1 capsule by mouth once daily Linaclotide (Linzess) 145 mcg capsule Discontinued 145 MCG PO DAILY June 22, 2023 1:00am June 23, 2023 9:32am lisinopril 2.5 mg oral tablet (20 sources) Angiotensin Converting Enzyme Inhibitor Start: 03-14-2019 End: 03-30-2019 take 2.5 mg by mouth twice daily Lisinopril Discontinued 2.5 MG PO TWICE A DAY 60 March 28, 2019 12:00am March 30, 2019 6:50am Start: 10-12-2018 End: 12-01-2018 take 1 tablet by mouth once daily lisinopril 2.5 mg tablet Take 1 tablet by mouth once daily. 30 tablet 11 10/14/2018 Active methotrexate 2.5 mg oral tablet (10 sources) Folate Analog Metabolic Inhibitor Start: 07-15-2022 End: 02-19-2023 take 5 tablets by mouth every week Methotrexate Sodium Discontinued 12.5 MG PO EVERY WEEK July 15, 2022 1:00am February 19, 2023 9:55am TAKE 5 TABS EVERY WEDNESDAY nitroglycerin 0.4 mg sublingual tablet (20 sources) Nitrate Vasodilator Start: 03-28-2019 End: 08-12-2022 Nitroglycerin Discontinued 0.4 MG SL every 5 to 15 minutes November 25, 2020 2:21pm August 12, 2022 3:52pm until response; do not exceed 3 doses per episode polyethylene glycol 3350 47051 mg powder for oral solution (20 sources) Osmotic Laxative Start: 01-30-2016 End: 02-19-2023 take 17 g by mouth once daily Polyethylene Glycol 3350 Discontinued 17 GM PO DAILY October 30, 2021 2:07pm February 19, 2023 9:56am pravastatin sodium 40 mg oral tablet (20 sources) HMG-CoA Reductase Inhibitor Start: 10-12-2018 End: 12-01-2018 take 40 mg by mouth at bedtime Pravastatin Discontinued 40 MG PO AT BEDTIME November 07, 2018 2:52pm December 01, 2018 5:40pm prazosin 1 mg oral capsule (20 sources) alpha-Adrenergic Vikas Start: 05-27-2020 End: 10-30-2021 take 1 mg by mouth at bedtime Prazosin Discontinued 1 MG PO AT BEDTIME August 05, 2021 9:15am October 30, 2021 2:08pm spironolactone 25 mg oral tablet (20 sources) Aldosterone Antagonist Start: 11-04-2018 End: 11-07-2018 take 0.5 tablet by mouth once daily Spironolactone Discontinued 25 MG PO DAILY November 04, 2018 4:18pm November 07, 2018 2:51pm 1/2 tab daily Start: 10-12-2018 End: 11-04-2018 take 0.5 tablet by mouth once daily Spironolactone Discontinued 12.5 MG PO DAILY October 12, 2018 12:00am November 04, 2018 4:19pm 1/2 tab daily ticagrelor 90 mg oral tablet (20 sources) Start: 10-12-2018 End: 01-19-2019 take 90 mg by mouth twice daily Ticagrelor Discontinued 90 MG PO TWICE A DAY 60 December 01, 2018 5:39pm January 19, 2019 2:26pm traZODone hydrochloride 100 mg oral tablet (20 sources) Serotonin Reuptake Inhibitor Start: 07-01-2021 End: 02-19-2023 take 200 mg by mouth once daily Trazodone Discontinued 200 MG PO DAILY 180 August 07, 2022 11:06am February 19, 2023 12:12pm Start: 04-03-2021 End: 07-01-2021 take 100 mg by mouth once daily Trazodone Discontinued 100 MG PO DAILY 90 April 03, 2021 9:12am July 01, 2021 5:33pm Start: 12-09-2020 End: 03-23-2021 take 200 mg by mouth at bedtime Trazodone Discontinued 200 MG PO AT BEDTIME December 10, 2020 12:11pm December 23, 2020 5:05pm Start: 04-04-2019 End: 04-03-2021 take 2 tablets by mouth once daily at bedtime Trazodone Discontinued 100 MG PO DAILY March 27, 2021 12:00am April 03, 2021 9:13am 2 tablets PO QHS Start: 11-10-2016 End: 05-27-2020 take 200 mg by mouth at bedtime Trazodone Discontinued 200 MG PO AT BEDTIME April 25, 2020 2:27pm May 27, 2020 11:02am Problems Active Problems Problem Classification Problem Date Documented Da te Episodic/Chronic Acute myocardial infarction (16 sources) Myocardial infarction; Translations: [ST elevation (STEMI) myocardial infarction of unspecified site] Onset: 9 10-30-2021 Chronic Administrative/social admission (2 sources) Persons encountering health services in other specified circumstances; Translations: [Lack of adequate sleep] 06-09-2022 Episodic Anxiety disorders (20 sources) Mixed anxiety and depressive disorder; Translations: [Anxiety disorder, unspecified] Chronic Asthma (18 sources) Asthma; Translations: [Unspecified asthma, uncomplicated] Onset: 0 Chronic Cancer of breast (20 sources) Intraductal carcinoma in situ of breast; Translations: [Intraductal carcinoma in situ of unspecified breast] Onset: 9 Chronic Cancer of breast (1 source) History of malignant neoplasm of breast; Translations: [Personal history of malignant neoplasm of breast] 05-31-2024 Episodic Chronic obstructive pulmonary disease and bronchiectasis (1 source) Acute exacerbation of chronic obstructive airways disease; Translations: [Chronic obstructive pulmonary disease with (acute) exacerbation] 11-04-2023 Chronic Coronary atherosclerosis and other heart disease (20 sources) Ischemic myocardial dysfunction; Translations: [Ischemic cardiomyopathy] Onset: 9 10-30-2021 Chronic Coronary atherosclerosis and other heart disease (9 sources) Presence of coronary angioplasty implant and graft; Translations: [Percutaneous transluminal coronary angioplasty status] Onset: 9 Episodic Diabetes mellitus with complications (20 sources) Type 2 diabetes mellitus with hyperglycemia; Translations: [Type 2 diabetes mellitus in obese] Onset: 7 Chronic Diabetes mellitus without complication (20 sources) Type 2 diabetes mellitus; Translations: [Type 2 diabetes mellitus without complications] Chronic Diabetes mellitus without complication (15 sources) Acute hyperglycemia; Translations: [Hyperglycemia, unspecified] 01-16-2023 Episodic Disorders of lipid metabolism (20 sources) Mixed hyperlipidemia; Translations: [Hyperlipidemia] Onset: 0 Resolved: 7 Chronic Esophageal disorders (15 sources) Gastro-esophageal reflux disease without esophagitis; Translations: [Gastroesophageal reflux disease] Onset: 0 07-15-2022 Chronic Essential hypertension (20 sources) Essential (primary) hypertension; Translations: [Essential hypertension] Onset: 0 Chronic Fracture of upper limb (20 sources) Injury of wrist; Translations: [Fracture of unspecified carpal bone, left wrist, initial encounter for closed fracture] 02-15-2023 Episodic Gastrointestinal hemorrhage (16 sources) Gastrointestinal hemorrhage; Translations: [Gastrointestinal hemorrhage, unspecified] 05-11-2023 Episodic Genitourinary symptoms and ill-defined conditions (16 sources) Urinary incontinence; Translations: [Unspecified urinary incontinence] Chronic Mood disorders (1 source) Depressive disorder; Translations: [Depression] Onset: 0 07-02-2010 Chronic Noninfectious gastroenteritis (6 sources) Colitis; Translations: [Noninfective gastroenteritis and colitis, unspecified] 05-11-2023 Episodic Other and unspecified benign neoplasm (2 sources) Melanocytic nevi, unspecified; Translations: [Benign neoplasm of skin, site unspecified] Episodic Other bone disease and musculoskeletal deformities (15 sources) Osteopenia; Translations: [Other specified disorders of bone density and structure, unspecified site] 01-14-2021 Episodic Other bone disease and musculoskeletal deformities (16 sources) Other specified disorders of bone density and structure, unspecified site; Translations: [Disorder of bone and cartilage, unspecified] Episodic Other connective tissue disease (20 sources) Hand pain; Translations: [Pain in left hand] 04-22-2022 Episodic Other connective tissue disease (12 sources) Tenosynovitis of left radial styloid; Translations: [Radial styloid tenosynovitis [de Quervain]] 04-22-2022 Episodic Other connective tissue disease (2 sources) Radial styloid tenosynovitis [de Quervain]; Translations: [Radial styloid tenosynovitis] Episodic Other connective tissue disease (2 sources) Trigger finger, unspecified finger; Translations: [Trigger finger (acquired)] Episodic Other connective tissue disease (2 sources) Trigger finger, right ring finger; Translations: [Trigger finger (acquired)] Episodic Other disorders of stomach and duodenum (7 sources) Indigestion; Translations: [Functional dyspepsia] 01-16-2023 Episodic Other gastrointestinal disorders (2 sources) Chronic constipation; Translations: [Other constipation] 06-22-2023 Episodic Other lower respiratory disease (15 sources) Dyspnea; Translations: [Dyspnea, unspecified] 11-05-2018 Episodic Other nervous system disorders (3 sources) Carpal tunnel syndrome, unspecified upper limb; Translations: [Carpal tunnel syndrome] Chronic Other nervous system disorders (1 source) Carpal tunnel syndrome of left wrist; Translations: [Carpal tunnel syndrome, left upper limb] Onset: 7 03-15-2017 Chronic Other nervous system disorders (5 sources) Acute postoperative pain; Translations: [Other acute postprocedural pain] 02-23-2023 Episodic Other non-traumatic joint disorders (15 sources) Polyarthropathy; Translations: [Polyarthritis, unspecified] 11-10-2021 Chronic Other non-traumatic joint disorders (6 sources) Polyarthritis, unspecified; Translations: [Unspecified polyarthropathy or polyarthritis, site unspecified] Chronic Other non-traumatic joint disorders (14 sources) Hip pain; Translations: [Pain in right hip] 11-20-2021 Episodic Other non-traumatic joint disorders (14 sources) Pain in right knee; Translations: [Pain in both knees] 11-20-2021 Episodic Other non-traumatic joint disorders (5 sources) Pain in elbow; Translations: [Pain in left elbow] 03-10-2023 Episodic Other nutritional; endocrine; and metabolic disorders (20 sources) Obesity; Translations: [Obesity, unspecified] 05-15-2022 Chronic Other nutritional; endocrine; and metabolic disorders (16 sources) Obesity, unspecified; Translations: [Obesity, unspecified] Chronic Other upper respiratory infections (13 sources) Streptococcal sore throat; Translations: [Streptococcal pharyngitis] 07-15-2022 Episodic Peripheral and visceral atherosclerosis (3 sources) Ischemic colitis; Translations: [Vascular disorder of intestine, unspecified] 06-22-2023 Chronic Residual codes; unclassified (12 sources) Hypersomnia; Translations: [Hypersomnia, unspecified] 04-30-2022 Chronic Residual codes; unclassified (3 sources) Hypersomnia, unspecified; Translations: [Hypersomnia, unspecified] Chronic Residual codes; unclassified (15 sources) Noncompliance with treatment; Translations: [Patient's noncompliance with other medical treatment and regimen] 10-30-2021 Episodic Residual codes; unclassified (15 sources) Amnesia; Translations: [Other amnesia] 12-23-2020 Episodic Residual codes; unclassified (15 sources) Delirium; Translations: [Disorientation, unspecified] 10-30-2021 Episodic Residual codes; unclassified (1 source) Family history of breast cancer; Translations: [Family history of malignant neoplasm of breast] 05-31-2024 Episodic Rheumatoid arthritis and related disease (16 sources) Inflammatory polyarthropathy; Translations: [Flare of rheumatoid arthritis] Onset: 0 Chronic Sprains and strains (1 source) Injury of abdominal wall; Translations: [Strain of muscle, fascia and tendon of abdomen, initial encounter] 11-04-2023 Episodic Syncope (15 sources) Syncope; Translations: [Syncope and collapse] 06-03-2021 Episodic Unclassified (2 sources) Type 2 diabetes mellitus without complication; Translations: [Uncontrolled type 2 diabetes mellitus without complication, with long-term current use of insulin] Onset: 0 05-14-2017 Viral infection (1 source) Viral disease; Translations: [Viral infection, unspecified] 11-04-2023 Episodic Past or Other Problems Problem Classification Problem Date Documented Da te Episodic/Chronic Abdominal pain (16 sources) Suprapubic pain; Translations: [Pelvic and perineal pain] Onset: 11-10-2023 05-21-2021 Episodic Cardiac dysrhythmias (1 source) Palpitations; Translations: [Palpitations] Onset: 06-21-2024 Episodic Genitourinary symptoms and ill-defined conditions (1 source) Microalbuminuria; Translations: [Proteinuria, unspecified] Onset: 06-10-2010 06-10-2010 Episodic Medical examination/evaluation (1 source) Encounter for other preprocedural examination; Translations: [Encounter for other preprocedural examination] Onset: 03-16-2017 Episodic Nausea and vomiting (8 sources) Nausea and vomiting; Translations: [Nausea with vomiting, unspecified] Onset: 03-16-2017 01-16-2023 Episodic Nonmalignant breast conditions (1 source) Mastodynia; Translations: [Mastodynia] Onset: 05-01-2024 Episodic Nonspecific chest pain (20 sources) Chest pain; Translations: [Chest pain, unspecified] Onset: 07-11-2024 Episodic Other aftercare (1 source) 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; Translations: [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] Onset: 03-16-2017 Episodic Other bone disease and musculoskeletal deformities (1 source) Steroid-induced osteopenia; Translations: [Other specified disorders of bone density and structure, unspecified site] Onset: 09-27-2016 09-27-2016 Episodic Other connective tissue disease (1 source) Trigger finger, left middle finger; Translations: [Trigger finger, left middle finger] Onset: 03-16-2017 Episodic Other connective tissue disease (20 sources) Triggering of digit; Translations: [Trigger finger, right ring finger] Onset: 02-06-2016 04-22-2022 Episodic Other connective tissue disease (1 source) Fibromyalgia; Translations: [Fibromyalgia] Onset: 04-30-2010 04-30-2010 Episodic Other gastrointestinal disorders (2 sources) Other constipation; Translations: [Constipation, unspecified] Onset: 01-21-2024 06-22-2023 Episodic Other gastrointestinal disorders (1 source) Constipation, unspecified; Translations: [Constipation, unspecified] Onset: 02-09-2024 Episodic Other lower respiratory disease (1 source) Other forms of dyspnea; Translations: [Other forms of dyspnea] Onset: 06-21-2024 Episodic Other non-traumatic joint disorders (1 source) Pain in left shoulder; Translations: [Pain in joint, shoulder region] Onset: 05-21-2017 05-21-2017 Episodic Other non-traumatic joint disorders (1 source) Pain in left wrist; Translations: [Pain in left wrist] Onset: 03-20-2024 Episodic Results Test Name Value Interpretation Reference Range Facility Lipid Profileon 09-27-2024 CHOL:HDL 2.67 Normal [facility] Comment on above: Performed By: #### L 500.4100 ####[facility] [address] [place], [address] Cholesterol [Mass/Vol] 180 mg/dL Normal <=200 [facility] Comment on above: Result Comment: Chol esterol level, Desirable <200 mg/dL Borderline high cholesterol 200-239 mg/dL High cholesterol >=240 mg/dL Recommendations of the NCEP Adult Treatment Panel for the following risk-cutoff thresholds for the [place] population. Performed By: #### L 500.4100 ####[facility] [address] [place], [address] Cholesterol in HDL [Mass/Vol] 68 mg/dL Normal [facility] Comment on above: Result Comment: Nicolette onal Cholesterol Education Program (NCEP) guidelines: <40 mg/dL: Low HDL-cholesterol (major risk factor for CHD) >= 60 mg/dL: High HDL-cholesterol (negative risk factor for CHD) HDL-cholesterol is affected by a number of factors, e.g. smoking, exercise, hormones, sex and age. Performed By: #### L 500.4100 ####[facility] [address] [place], [address] Cholesterol in LDL [Mass/Vol] 91 mg/dL Normal [facility] Comment on above: Result Comment: Bord werxwt=280-703 mg/dL Higher Aoph=939 mg/dL or greater Performed By: #### L 500.4100 ####[facility] [address] [place], [address] Cholesterol in VLDL [Mass/Vol] 22 mg/dL Normal 5-40 [facility] Comment on above: Performed By: #### L 500.4100 ####[facility] [address] [place], [address] Triglyceride [Mass/Vol] 110 mg/dL Normal [facility] Comment on above: Result Comment: The drugs N-Acetylcysteine and Metamizole may falsely depress this assay. Normal range: <150 mg/dL Borderline High: 150-199 mg/dL High: 200-499 mg/dL Very High: >500 mg/dL Performed By: #### L 500.4100 ####[facility] [address] [place], [address] Comprehensive Metabolic Prof ilon 09-26-2024 Albumin [Mass/Vol] 4.1 g/dL Normal 3.4-4.8 [facility] Comment on above: Performed By: #### L 500.4050 #### [facility] [address] [place], [address] Albumin/Globulin [Mass ratio] 1.3 {ratio} Normal 0.9-2.4 [facility] Comment on above: Performed By: #### L 500.4050 #### [facility] [address] [place], [address] ALK PHOS 57 U/L Normal 35-104 [facility] Comment on above: Performed By: #### L 500.4050 #### [facility] [address] [place], [address] ALT [Catalytic activity/Vol] 18 U/L Normal <=34 [facility] Comment on above: Performed By: #### L 500.4050 #### [facility] [address] [place], [address] Anion gap [Moles/Vol] 12 mmol/L Normal 5-15 [facility] Comment on above: Performed By: #### L 500.4050 #### [facility] [address] [place], [address] AST [Catalytic activity/Vol] 22 U/L Normal <=31 [facility] Comment on above: Performed By: #### L 500.4050 #### [facility] [address] [place], [address] Bilirubin [Mass/Vol] 0.46 mg/dL Normal 0.00-1.30 [facility] Comment on above: Performed By: #### L 500.4050 #### [facility] [address] [place], [address] BUN/CRE 23.0 RATIO High 10-20 [facility] Comment on above: Performed By: #### L 500.4050 #### [facility] [address] [place], [address] Calcium [Mass/Vol] 9.6 mg/dL Normal 7.6-11.0 [facility] Comment on above: Performed By: #### L 500.4050 #### [facility] [address] [place], [address] Chloride [Moles/Vol] 102 mmol/L Normal 96-108 [facility] Comment on above: Performed By: #### L 500.4050 #### [facility] [address] [place], [address] CO2 [Moles/Vol] 22.6 mmol/L Normal 22.0-29.0 [facility] Comment on above: Performed By: #### L 500.4050 #### [facility] [address] [place], [address] Creatinine [Mass/Vol] 0.8 mg/dL Normal 0.6-1.0 [facility] Comment on above: Performed By: #### L 500.4050 #### [facility] [address] [place], [address] GFR/1.73 sq M.predicted among non-blacks MDRD (S/P/Bld) [Vol rate/Area] 83 mL/min/{1.73_m2} Normal >60 [facility] Comment on above: Result Comment: mL/m in/1.73m2 CKD-EPI Creatinine Equation (2020) Performed By: #### L 500.4050 #### [facility] [address] [place], [address] Globulin (S) [Mass/Vol] 3.1 g/dL Normal 2.2-4.2 [facility] Comment on above: Performed By: #### L 500.4050 #### [facility] [address] [place], [address] Glucose [Mass/Vol] 189 mg/dL High 70-99 [facility] Comment on above: Performed By: #### L 500.4050 #### [facility] [address] [place], [address] Potassium [Moles/Vol] 4.5 mmol/L Normal 3.3-5.1 [facility] Comment on above: Performed By: #### L 500.4050 #### [facility] [address] [place], [address] Sodium [Moles/Vol] 137 mmol/L Normal 133-145 [facility] Comment on above: Performed By: #### L 500.4050 #### [facility] [address] [place], [address] T PROT 7.1 g/dL Normal 5.9-8.4 [facility] Comment on above: Performed By: #### L 500.4050 #### [facility] [address] [place], [address] Urea nitrogen [Mass/Vol] 18 mg/dL Normal 4-19 [facility] Comment on above: Performed By: #### L 500.4050 #### [facility] [address] [place], [address] Lipid Profileon 09-26-2024 HDL Normal [facility] Comment on above: Result Comment: PUTT ING UNDER DIFFERENT REQ The drugs N-Acetylcysteine and Metamizole may falsely depress this assay. Performed By: #### L 500.4100 ####[facility] [address] [place], [address] TRIG Normal [facility] Comment on above: Result Comment: PUTT ING UNDER DIFFERENT REQ The drugs N-Acetylcysteine and Metamizole may falsely depress this assay. Performed By: #### L 500.4100 ####[facility] [address] [place], [address] CHOL Normal <=200 [facility] Comment on above: Result Comment: PUTT ING UNDER DIFFERENT REQ Performed By: #### L 500.4100 ####[facility] [address] [place], [address] LDL Normal 0-130 [facility] Comment on above: Result Comment: PUTT ING UNDER DIFFERENT REQ Performed By: #### L 500.4100 ####[facility] [address] [place], [address] VLDL Normal 5-40 [facility] Comment on above: Result Comment: PUTT ING UNDER DIFFERENT REQ Performed By: #### L 500.4100 ####[facility] [address] [place], [address] Cardiology Visit Reporton Cardiology Visit Report [facility] [address] [place] [address] OFFICE VISIT Date of Service: 09/21/24 MR#: [id number] Acct: [id number] Name: ANGEL REICH Rep #: [id number] : 1960 Provider: TATIANA Narayan Age/Sex: 64/F Location: [facility] Status: Signed HPI HPI History of Present Illness Details: This is a 64-year-old female who presents here today for a cardiovascular follow-up visit. She has a history of a STEMI in September 2018, she was noted to have a 99% LAD stenosis with MEHREEN I flow, a 70% distal circumflex stenosis and a 60% mid right coronary artery stenosis. Her ejection fraction was noted to be 35% and she underwent successful drug-eluting stent placement to the mid left anterior descending artery. Patient presented to [facility] Emergency Department in March 2019 for ongoing chest pain. She underwent repeat heart catheterization with FFR. This did not demonstrate any significant restenosis. She was discharged home with her Coreg medication adjusted. She did have a left partial breast mastectomy with radiation and so she has had some residual chest discomfort. She also has a history of hypertension, hyperlipidemia, and ischemic cardiomyopathy. She underwent a stress test in May of 2022 which was noted to be normal. She did have a stress test in 2023 which was negative for ischemia. Echocardiogram at that time also demonstrated a preserved ejection fraction. Overall from a cardiac standpoint she is doing well. Intake Vital Signs 05/25/24 10:52 09/21/24 11:11 09/21/24 11:16 Height 4 ft 9 in 4 ft 9 in 4 ft 9 in Weight: 173 lb BMI 37.4 BP 123/77 H Blood Pressure Location Lt brachial Position Sitting Respiration 18 Pulse 67 Pulse Source Monitor Pulse Oximetry (%) 93 Intake Visit Reasons: 4 M [employer] Required: No Is patient in pain?: No Allergies egg Allergy (Severe, Verified 09/21/24 11:12) Anaphylaxis fish derived Allergy (Severe, Verified 09/21/24 11:12) Unknown nitrofurantoin macrocrystalline (From Macrodantin) Allergy (Severe, Verified 09/21/24 11:12) Anaphylaxis calcium carbonate (From Florical) Adverse Reaction (Severe, Verified 09/21/24 11:12) unknown codeine Adverse Reaction (Severe, Verified 09/21/24 11:12) unknown oxycodone HCl (From Percocet) Adverse Reaction (Severe, Verified 09/21/24 11:12) unknown propoxyphene napsylate (From Darvocet-N 100) Adverse Reaction (Severe, Verified 09/21/24 11:12) unknown sodium fluoride (From Florical) Adverse Reaction (Severe, Verified 09/21/24 11:12) unknown Sulfa (Sulfonamide Antibiotics) Adverse Reaction (Severe, Verified 09/21/24 11:12) Hives tamoxifen Adverse Reaction (Severe, Verified 09/21/24 11:12) Hives dulaglutide (From Trulicity) Adverse Reaction (Intermediate, Verified 09/21/24 11:12) Diarrhea glimepiride Adverse Reaction (Intermediate, Verified 09/21/24 11:12) Diarrhea morphine Adverse Reaction (Verified 09/21/24 11:12) Other Medications ???Medication ???Instructions ???Recorded ???Confirmed ???Type aspirin 81 mg tablet,delayed 81 mg PO DAILY@0800 10/12/1809/21 Rx release meclizine 25 mg tablet 25 mg PO TID PRN PRN Dizziness 05/25/24 History calcium carbonate 200 mg calcium 1 tab PO BID 08/26/20 05/25/24 His tory (500 mg)-vitamin D3 400 unit tablet insulin syringe-needle U-100 0.3 #120 ea 11/24/21 04/13/24 Rx mL 31 gauge x 5/16 (BD Insulin Syringe Ultra-Fine) albuterol sulfate 90 mcg/actuation 2 puff inhalation Q6H PRN 05/25/24 History aerosol inhaler (Ventolin HFA) shortness of breath or wheezing omeprazole 40 mg capsule,delayed 40 mg PO DAILY #90 caps 08/05/22 1 Rx release duloxetine 30 mg capsule,delayed 30 mg PO BID #180 caps 08/07/22 Rx release lancets 28 gauge (Comfort EZ #100 ea 09/03/22 04/13/24 Rx Lancets) carvedilol 6.25 mg tablet 6.25 mg PO BID #180 tabs 12/22/22 05/25/24 Rx bupropion HCl 150 mg tablet,12 hr 150 mg PO DAILY 02/04/23 09/21/24 History sustained-release (Wellbutrin SR) ondansetron 4 mg disintegrating 4 mg PO Q6H PRN nausea and 3 05/25/24 Rx tablet vomiting #12 tabs fluticasone 250 mcg-salmeterol 50 1 ea inhalation BID PRN shortness 02/19/23 05/25/24 History mcg/dose blistr powdr for of breath or wheezing inhalation trazodone 100 mg tablet 200 mg PO QHS 02/19/23 05/25/24 Hi story Novolog U-100 Insulin aspart 100 20 unit (0.2 mL) subcut TID #20 mL 03/15/23 05/25/24 Rx unit/mL subcutaneous solution (insulin aspart U-100) insulin syringe-needle U-100 0.3 #200 ea 05/07/23 04/13/24 Rx mL 31 gauge x 5/16 (BD Insulin Syringe Ultra-Fine) dicyclomine 10 mg capsule 10 mg PO TIDAC PRN abdominal 05/1205/25/24 Rx (more content not included)... Normal [facility] Echo Completeon 06-14-2024 Echo Complete [facility] [address] [place] [address] Echo Complete 06/14/24 0855 MR#: [id number] Acct: [id number] Name: ANGEL REICH Rep #: [id number] : 1960 64 From: Oskar Olsen MD Attending Dr: Ania Mccall NP-C Status: REG C Ordering Dr: Ania Mccall DIRECTOR OF GUIDANCE DIRECTOR OF GUIDANCE-C Date: 06/14/24 Location: [facility] Sex: F C Admitted: Reason For Study: DYSPNEA Procedure This was a 2D Doppler, Color Flow transthoracic echocardiogram. Myocardial strain analysis was performed in this exam to aid in the assessment of cardiac function. Exam performed in department. Left Ventricle Normal LV size. Left ventricular systolic function is normal. The left ventricular ejection fraction is 65 %. Stage 1 diastolic dysfunction. No regional wall motion abnormalities noted. Right Ventricle Normal RV size. Normal systolic function. Atria Normal left atrium. Normal right atrium. Mitral Valve Normal mitral valve. Tricuspid Valve Normal tricuspid valve. Mild tricuspid valve insufficiency. Pulmonary artery systolic pressure is 15 mmHg. Aortic Valve Trisinus/trileaflet aortic valve. Pulmonic Valve Normal pulmonic valve. Great Vessels Normal aortic root. The pulmonary artery is normal size. Normal inferior vena cava. Pericardium/Pleural No pericardial effusion. MMode/2D Measurements Calculations LVIDd: 4.0 cm IVSd: 1.2 cm LVOT diam: 1.9 cm LVIDs: 2.2 cm LVPWd: 0.96 cm LVOT area: 2.8 cm2 RVDd: 3.2 cm FS: 46.2 % asc Aorta Diam: 3.3 cm LAV(MOD-bp): 29.7 ml LVAd ap4: 18.2 cm2 LAV(MOD-bp) Indexed: 17.3 ml/m2 LVLd ap4: 6.9 cm LAV(MOD-sp2): 30.9 ml EDV(MOD-sp4): 39.7 ml LAV(MOD-sp4): 28.8 ml EDV(sp4-el): 40.8 ml LVAs ap4: 8.9 cm2 LVLs ap4: 5.6 cm ESV(MOD-sp4): 13.1 ml ESV(sp4-el): 11.9 ml EF(MOD-sp4): 67.1 % EF(sp4-el): 70.9 % LVAd ap2: 14.3 cm2 SV(MOD-sp4): 26.7 ml SV(MOD-sp2): 18.1 ml LVLd ap2: 6.6 cm SI(MOD-sp4): 15.5 ml/m2 SI(MOD-sp2): 10.5 ml/m2 EDV(MOD-sp2): 27.6 ml EDV(sp2-el): 26.5 ml LVAs ap2: 7.3 cm2 LVLs ap2: 5.3 cm ESV(MOD-sp2): 9.5 ml ESV(sp2-el): 8.5 ml EF(MOD-sp2): 65.5 % SV(sp4-el): 28.9 ml Ao sinus diam: 3.[address] Junction: 2.4 cm LA dimension(2D): 3.4 cm LA A4 area: 13.4 cm2 RA A4 area: 12.1 cm2 TAPSE: 2.4 cm Time Measurements MV dec time: 0.19 sec Doppler Measurements Calculations MV E max janay: 74.2 cm/sec Lat Peak E' Janay: 10.8 cm/sec Med Peak E' Janay: 7.9 cm/sec MV A max janay: 88.6 cm/sec E/E' lat: 6.9 E/E' med: 9.3 MV E/A: 0.84 MV dec slope: 394.1 cm/sec2 Ao V2 max: 138.9 cm/sec LV V1 max: 98.9 cm/sec Ao max P.7 mmHg LV V1 max P.9 mmHg Ao V2 mean: 95.4 cm/sec LV V1 mean P.0 mmHg Ao mean P.1 mmHg LV V1 mean: 66.2 cm/sec Ao V2 VTI: 32.3 cm LV V1 VTI: 23.4 cm AV (velocity ratio): 0.72 CARINA(I,D): 2.0 cm2 CARINA(V,D): 2.0 cm2 SV(LVOT): 65.2 ml PA V2 max: 90.1 cm/sec TR max janay: 177.6 cm/sec TR max P.6 mmHg ECHO/Echo Complete Interpretation Summary Normal LV size. Left ventricular systolic function is normal. The left ventricular ejection fraction is 65 %. The global longitudinal strain = -19 % (normal). Stage 1 diastolic dysfunction. The global longitudinal strain is normal. The global longitudinal strain = -19 % (normal). Ordering Physician: Ania Mccall Referring Physician: Ania Mccall Performed By: Diya Quintero RDCS 06/14/24 1137 Date Oskar Olsen MD CC: DIRECTOR OF GUIDANCE-C Ania Mccall; Dr. Gaurav Deshpande MD Date Dictated: 06/14/24 0855 Date Transcribed: 06/14/24 1137 Management Expert: Signed Normal [facility] Stress Reporton 06-14-2024 Stress Report [facility] [address] [place] [address] MR#: [id number] Acct: [id number] Name: ANGEL REICH Rep #: [id number] : 1960 64 From: Oskar Olsen MD Primary Care: Dr. Gaurav Deshpande MD Status: REG CLI Referring Dr: Ania Mccall NP DIRECTOR OF GUIDANCE-C Sex: F C Stress Test Report Pharmacologic myocardial perfusion stress test. 64-year-old lady with a history of chest pain Resting EKG demonstrates sinus rhythm with a rate of 58 bpm. Resting blood pressure is 132/74 mmHg. 0.4 mg of regadenoson was infused per usual protocol followed by rapid intravenous saline flush injection. Continuous EKG monitoring was performed. The maximum heart rate was 77 bpm which was 49% of max impacted heart rate the maximum workload was 1 metabolic equivalent. At rest there were no ST or T wave changes noted to suggest ischemia and at peak infusion nonspecific ST changes were noted which did not meet the criteria for ischemia. No clinical angina is noted. The final blood pressure was 130/64 mmHg. Myocardial perfusion protocol. 11.8 mCi of technetium 99m sestamibi was injected at rest. 0.4 mg of regadenoson was infused per usual protocol. At peak infusion 36 point mCi of technetium 99m sestamibi was injected stress i mages were obtained stress and rest images were reconstructed and compared in the short axis vertical long and horizontal long axis. Gated images were also obtained. Perfusion SPECT analysis: Review of the stress images demonstrate normal uptake of tracer noted in all areas of the myocardium. The resting images similar demonstrated normal uptake of tracer noted in all areas of the myocardium. No areas of reversibility are noted to suggest ischemia and no previous infarct is noted. Gated SPECT analysis: The gated ejection fraction is 82%. Conclusion: Normal pharmacologic myocardial perfusion stress test. Preserved ejection fraction. 06/14/241715 Date Oskar Olsen MD CC: WILTON Mccall; Dr. Gaurav Deshpande MD Date Dictated: 06/14/241713 Date Transcribed: 06/14/241713 Management Expert: [place] Signed [facility] 05-29-[address] [facility] Office Visit (GENSWS ) ANGEL REICH ([id number]) 1960 F Date Time Provider Department 05/29/24 1:15 PM DORIS TOBIN During your visit today, we recorded the following information about you: Pulse Respiration Blood pressure Weight 75/minute 16/minute 108/73 78.5 kg Height 1.448 m Felicita Velasco RN 05/29/2024 1:15 PM Signed REVIEW OF SYSTEMS: General: The patient denies fatigue, denies weight loss, denies weight gain, denies feeling hot, and denies feelings of cold. Eyes: The patient denies glaucoma, denies eye injury/surgery, wears glasses or contacts. Ear/Nose/Throat: The patient denies allergies, denies hayfever, denies ear infections, and denies bloody noses. Cardiovascular: The patient denies chest pain, NOTES heart disease, NOTES high blood pressure,NOTES cardiac stent, NOTES prior heart attack, denies irregular heart beat, denies high cholesterol, denies poor circulation, denies heart failure, other cardiac issues, denies claudication, denies cold feet, denies peripheral arterial stent., NOTES leg pain Respiratory: The patient denies tuberculosis, denies pneumonia, denies frequent cough, denies pulmonary embolism, denies shortness of breath, and denies coughing up blood. Gastrointestinal: The patient denies difficulty swallowing, denies acid reflux, denies ulcers, denies vomiting, denies jaundice/hepatitis, denies gallbladder problems, denies black or tarry stools, denies hemorrhoids, denies bleeding from rectum, denies diverticulitis, denies constipation, NOTES diarrhea, denies loss of stool control, and denies hernias. Kidney/Bladder: The patient denies kidney stones, denies urine infections, and denies bloody urine. Skin: The patient denies a history of skin cancer, denies bleeding/changing moles, and denies a history of skin rash. Neurologic: The patient denies a history of epilepsy/convulsions, denies headaches, denies head/spinal injuries, and denies stroke/TIA. Psychiatric: The patient denies psychiatric medications, NOTES depression, and denies voices, denies substance abuse. Endocrine: The patient denies thyroid disorders, NOTES diabetes, and denies hormonal problems. Hematologic: The patient denies a history of bruising, denies bleeding, and denies anemia, denies blood clots. Infections: The patient denies a history of measles and mumps, denies rheumatic fever, and denies sexually transmitted diseases. Musculoskeletal: The patient denies back pain/injury, denies back problems, denies sciatica, denies knee/foot trouble, NOTES arthritis, or denies gout. When was patient's last Mammogram screening? 04/11/24 Last Colonoscopy: 2022 at [place] ZACHARY Barker, Doris Martinez MD 05/31/2024 3:52 PM Signed Angel Reich 1960 REFERRING PHYSICIAN: No ref. provider found CHIEF COMPLAINT: New Patient HPI: The patient is a 64 year old female presents with complaint of left chest pain and breast pain. 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 She has been followed by Dr. Olsen She denies palpable breast masses. Denies nipple discharge. Denies breast pain. Mother had breast cancer diagnosed in her 40s. Sister had bilateral breast cancer diagnosed in her 30s and also ovarian cancer. Another sister had ovarian cancer. Mother's mother and father's mother had breast cancer. Other second degree relatives with breast cancer. No known testing for BRCA in the family. She states that the pain is in her left axilla and extends to her left breast and left chest wall. It has been present for about three weeks. She states that it is a severe ache, with occasional sharp pains. She does have a diagnosis of fibromyalgia. She had breast radiological studies - Left breast mammograms, bilateral diagnostic 04/11/2024; left breast US 04/11/2024 - no abnormalities seen She has poorly controlled diabetes with persistently elevated HgbA1c on insulin. PAST MEDICAL HISTORY Diagnosis Date Asthma CAD (coronary artery disease) 09/2018 70% occlusion of the distal left circumflex, 60% occlusion of the right RCA DCIS (ductal carcinoma in situ) of breast 2019 left Depressive disorder, not elsewhere classified Essential hypertension, benign Family history of malignant neoplasm of breast mother and sisters Fibromyalgia Generalized osteoarthrosis, unspecified site GERD (gastroesophageal reflux disease) Hearing impaired since age 4, reads lips Other and unspecified hyperlipidemia PONV (postoperative nausea and vomiting) 03/16/2017 STEMI (ST elevation myocardial infarction) (HCC) 09/2018 LIZETTE X2 :LAD Type II or unspecified type diabetes mellitus without mention of complication, not stated as uncontrolled PAST SURGICAL (more content not included)... Normal [facility] Cardiology Visit Reporton Cardiology Visit Report [facility] [address] [place] [address] OFFICE VISIT Date of Service: 05/25/24 MR#: [id number] Acct: [id number] Name: ANGEL REICH OMID Rep #: [id number] : 1960 Provider: WILTON dalton Age/Sex: 64/F Location: [facility] Status: Signed [facility] History of Present Illness Details: This is a 64-year-old female who presents here today for a cardiovascular follow-up visit. She has a history of a STEMI in September 2018, she was noted to have a 99% LAD stenosis with MEHREEN I flow, a 70% distal circumflex stenosis and a 60% mid right coronary artery stenosis. Her ejection fraction was noted to be 35% and she underwent successful drug-eluting stent placement to the mid left anterior descending artery. Patient presented to [facility] Emergency Department in March 2019 for ongoing chest pain. She underwent repeat heart catheterization with FFR. This did not demonstrate any significant restenosis. She was discharged home with her Coreg medication adjusted. She did have a left partial breast mastectomy with radiation and so she has had some residual chest discomfort. She also has a history of hypertension, hyperlipidemia, and ischemic cardiomyopathy. She underwent a stress test in May of 2022 which was noted to be normal. From a cardiac standpoint, the patient is doing well. She does acknowledge occasional palpitations- fluttering sensation. She does have chest pain-this is located left/midsternal chest pain. She states this will last for about 45 minutes. She does acknowledge SOB with chest pain, and with exertion. She states this is newer. She denies Orthopnea, and PND. She does not have bleeding issues; no blood in urine, stool or nosebleeds. She denies any decrease in energy level, myalgias, or claudication. She does not have edema, or sudden weight gain. She does have occasional dizziness/lightheadedness with chest pain. She denies dizziness, syncopal or near syncopal episodes, and headaches. Intake Vital Signs 05/27/23 08:56 04/13/24 11:39 05/25/24 10:52 Height 4 ft 9 in 4 ft 9 in 4 ft 9 in Weight: 171 lb BMI 37.0 BP 137/83 H Blood Pressure Location Lt brachial Position Sitting Respiration 18 Pulse 68 Pulse Source Monitor Pulse Oximetry (%) 95 Intake Visit Reasons: 1 Y FU [employer] Driver Required: No Is patient in pain?: No Allergies egg Allergy (Severe, Verified 05/25/24 11:16) Anaphylaxis fish derived Allergy (Severe, Verified 05/25/24 11:16) Unknown nitrofurantoin macrocrystalline (From Macrodantin) Allergy (Severe, Verified 05/25/24 11:16) Anaphylaxis calcium carbonate (From Florical) Adverse Reaction (Severe, Verified 05/25/24 11:16) unknown codeine Adverse Reaction (Severe, Verified 05/25/24 11:16) unknown oxycodone HCl (From Percocet) Adverse Reaction (Severe, Verified 05/25/24 11:16) unknown propoxyphene napsylate (From Darvocet-N 100) Adverse Reaction (Severe, Verified 05/25/24 11:16) unknown sodium fluoride (From Florical) Adverse Reaction (Severe, Verified 05/25/24 11:16) unknown Sulfa (Sulfonamide Antibiotics) Adverse Reaction (Severe, Verified 05/25/24 11:16) Hives tamoxifen Adverse Reaction (Severe, Verified 05/25/24 11:16) Hives dulaglutide (From Trulicity) Adverse Reaction (Intermediate, Verified 05/25/24 11:16) Diarrhea glimepiride Adverse Reaction (Intermediate, Verified 05/25/24 11:16) Diarrhea morphine Adverse Reaction (Verified 05/25/24 11:16) Other Medications ???Medication ???Instructions ???Recorded ???Confirmed ???Type aspirin 81 mg tablet,delayed 81 mg PO DAILY@0800 10/12/18 05/25/24 Rx release meclizine 25 mg tablet 25 mg PO TID PRN PRN Dizziness 07/14/20 05/25/24 History calcium carbonate 200 mg calcium 1 tab PO BID 08/26/20 05/25/24 History (500 mg)-vitamin D3 400 unit tablet insulin syringe-needle U-100 0.3 #120 ea 11/24/21 04/13/24 Rx mL 31 gauge x 5/16 (BD Insulin Syringe Ultra-Fine) albuterol sulfate 90 mcg/actuation 2 puff inhalation Q6H PRN 07/15/22 05/25/24 History aerosol inhaler (Ventolin HFA) shortness of breath or wheezing omeprazole 40 mg capsule,delayed 40 mg PO DAILY #90 caps 08/05/22 05/25/24 Rx release duloxetine 30 mg capsule,delayed 30 mg PO BID #180 caps 08/07/22 05/25/24 Rx release lancets 28 gauge (Comfort EZ #100 ea 09/03/22 04/13/24 Rx Lancets) carvedilol 6.25 mg tablet 6.25 mg PO BID #180 tabs 12/22/22 05/25/24 Rx bupropion HCl 150 mg tablet,12 hr 150 mg PO DAILY 02/04/23 05/25/24 History sustained-release (Wellbutrin SR) ondansetron 4 mg disintegrating 4 mg PO Q6H PRN nausea and 02/15/23 05/25/24 Rx tablet vomiting #12 tabs fluticasone 250 mcg-salmeterol 50 1 ea inhalation BID PRN shortness 02/19/23 05/25/24 History mcg/dose blistr powdr for of akira (more content not included)... Normal [facility] Oncology Visit Reporton 04-02 Oncology Visit Report [facility] [place] [address] OFFICE VISIT Date of Service: 04/13/24 1137 MR#: [id number] Acct: [id number] Name: ANGEL REICH Rep #: [id number] : 1960 From: Imani Vo NP DIRECTOR OF GUIDANCE -C Age/Sex: 64/F Location: [facility] Status: Signed HPI Subjective Date of Service 04/13/24 Chief Complaint Review mammogram and US History of Present Illness 64-year-old female postmenopausal transferred care to [facility] August 04, 2019. Prior care was at [facility]. She has a family history of breast cancer (grandmother, mother and sister) tested negative for BRCA 1 and 2 in 2006 and was undergoing annual screening mammograms vigilantly.. October 26, 2018 Screening mammogram: IMPRESSION: Stable unilateral diagnostic mammogram. New 5 mm nodule in the deep upper lateral portion of the left breast. Correlation with ultrasound is recommended to rule out a cyst. October 26 2018 Left breast, stereotactic core biopsy: Fragment of atypical papillary neoplasm. Fragments of focal intraductal hyperplasia without atypia. Mild fibrocystic change. COMMENT An encapsulated papillary carcinoma cannot be excluded. Excision is recommended for definitive classification. December 05, 2018 A. Left breast, lumpectomy with needle localization: Ductal carcinoma in situ. Intraductal papilloma with atypia. Fibrocystic changes and intraductal hyperplasia with focal atypia. Extensive changes consistent with previous biopsy site. See cancer summary below. B. Additional left breast tissue, biopsy: Fibrocystic changes and intraductal hyperplasia without atypia. Fragments of blood clots. DUCTAL CARCINOMA IN SITU SUMMARY: Specimen - partial breast Procedure - excision with wire-guided localization. Lymph node sampling no lymph nodes present. Specimen integrity multiple designated specimens Specimen size 7 x 4 x 3 cm, lumpectomy specimen Additional tissue 1 x 0.5 x 0.5 cm Specimen laterality left Tumor site not identified Size (extent) of DCIS 0.3 cm in greatest dimension (measured microscopically) Number of blocks with DCIS - 4 Number of blocks examined 11 (specimen A B) Histologic type - ductal carcinoma in situ Architectural pattern cribriform Nuclear grade - Grade 1 (low) Necrosis not identified Margins margins are uninvolved by DCIS. The tumor is 0.5 cm away from the closest superior margin. Treatment effect: Response to presurgical surgical (neoadjuvant) therapy - no known presurgical therapy. Lymph nodes not submitted Additional Pathologic Findings extensive changes consistent with previous biopsy site. See comment Intraductal papilloma with atypia. Fibrocystic changes and intraductal hyperplasia with focal atypia. Ancillary Studies ([id number]) ER - positive (>95%, strong) IL - positive (>95%, strong) Her2 ivonne ([facility]) Negative (1+) Her2 by FISH - not performed. Microcalcifications present in both ductal carcinoma in situ and non-neoplastic tissue. Clinical history - Please make reference to previous specimen ([id number]), left breast, stereotactic core biopsy with diagnosis of fragment of atypical papillary neoplasm. Pathologic Staging: pTis(DCIS) pNx Mx Treatment summary: November 2018 partial mastectomy. 2019 adjuvant radiation therapy given at [facility]. September 2018 tamoxifen less than 1 week developed hives and changed to Arimidex. Compliance has been a problem and treatment was interrupted sometime in [id number]. Completed endocrine therapy January 2024. Interval History The patient is presenting to clinic to review results of diagnostic mammogram and US of left breast obtained to address c/o new left breast pain. States left breast pain continues unchanged. Has remained tender to the touch. Continues to deny any changes in the right breast. [facility] Medical History History of ductal carcinoma in situ (DCIS) of left breast Pain of left breast Abdominal wall strain Colitis Cast in place on extremity Wears hearing aid Wears glasses Cancer Anxiety Open wound Insulin dependent diabetes mellitus Fibromyalgia Syncope Dietary restriction History of edema History of Holter monitoring History of stress test Cardiology follow-up encounter GERD (gastroesophageal reflux disease) Strep pharyngitis Bilateral hip pain Bilateral knee pain Chronic suprapubic pain Urinary incontinence Polyarthropathy COPD (chronic obstructive pulmonary disease) Noncompliance with diabetes treatment Osteoarthritis Diabetes mellitus type 2 in obese Obesity Type 2 diabetes mellitus Depression Ischemic cardiomyopathy Abnormal mammogram Atherosclerosis of coronary artery of jamul heart without angina pectoris Essential (primary) hypertension Hyperlipidemia (more content not included)... Normal [facility] Breast Limited Unilateralon 04-11-2024 Breast Limited Unilateral [facility] [address] [place] [address] Breast Limited Unilateral MR#: [id number] Acct: [id number] Name: ANGEL REICH Rep #: [id number] : 1960 F 64 From: Jay boone MD PCP: Dr. Gaurav Deshpande MD Status: [facility] CLI Study: Breast Limited Unilateral Date of Exam: Exam# [id number] Ordering Dr: Imani Vo NP DIRECTOR OF GUIDANCE -C :[id number] STUDY: ULTRASOUND BREAST - LEFT REASON FOR EXAM: Female, 64 years old. Pain in the left breast. TECHNIQUE: Axial and longitudinal images of the LEFT breast were performed with a high resolution ultrasound transducer. # OF IMAGES: 8 COMPARISON: Comparison is made with prior mammogram dated April 11, 2024. FINDINGS: LEFT Breast: The inferior medial aspect of the left breast was examined with ultrasound. There is heterogeneous fibroglandular tissue. No sonographic abnormality is seen. US/Breast Limited Unilateral IMPRESSION: No sonographic abnormality is seen. ASSESSMENT CATEGORY: BIRADS Category 1: Negative. A letter regarding these results will be sent to the patient by the facility within 30 days. Electronically Signed: Jay Guzmán MD at 12:31 EDT , CC: WILTON Vo; Dr. Gaurav Deshpande MD Management Expert: Signed Normal [facility] DIAG MAMM W/CAD, BILATon DIAG MAMM W/CAD, BILAT [facility] [address] [place] [address] DIAG MAMM W/CAD, BILAT MR#: [id number] Acct: [id number] Name: ANGEL REICH Rep #: [id number] : 1960 F 64 From: Jay boone MD PCP: Dr. Gaurav Deshpande MD Status: REG CLI Study: DIAG MAMM W/CAD, BILAT Date of Exam: 04/11/24 Exam# [id number] Ordering Dr: Imani Vo NP, NP :[id number] MAMMOGRAPHY - BILATERAL DIAGNOSTIC REASON FOR EXAM: Female, 64 years old. Left breast pain for 3 weeks. PERTINENT HISTORY: Personal history of breast cancer. TECHNIQUE: Digital bilateral breast samira (3D mammographic acquisition) in the CC and MLO projections. 2-D mediolateral oblique (MLO) and craniocaudad (CC) views of both breasts were obtained. CAD: Full Field Digital Mammography with Computer Added Detection was performed. COMPARISON: Comparison is made with prior study May 26, 2023 and November 05, 2021. FINDINGS: Breast Composition: The breasts are heterogeneously dense, which may obscure small masses. Once again, the patient is status post lumpectomy in the deep upper lateral aspect of the left breast with resultant postoperative scarring and skin thickening with dystrophic calcification. There is been no change. No other significant abnormalities are identified. There has been no significant change since the prior study. BI/DIAG MAMM W/CAD, BILAT IMPRESSION: Stable bilateral diagnostic mammogram. One year follow-up recommended. (A) ASSESSMENT CATEGORY: BIRADS Category 2: Benign. A letter regarding these results will be sent to the patient by the facility within 30 days. Approximately 10% of breast cancers are not detected by mammography. A normal mammogram should not delay biopsy of a clinically suspicious abnormality. Electronically Signed: Jay Guzmán MD at 15:28 EDT , CC: WILTON Vo; Dr. Gaurav Deshpande MD Management Expert: Signed Normal [facility] Oncology Visit Reporton Oncology Visit Report [facility] [address] [address] OFFICE VISIT Date of Service: 04/06/24 1405 MR#: [id number] Acct: [id number] Name: ANGEL REICH Rep #: [id number] : 1960 From: Imani Banda Age/Sex: 64/F Location: [facility] Status: Signed HPI Subjective Date of Service 04/06/24 Chief Complaint Acute visit-breast pain History of Present Illness 64-year-old female postmenopausal transferred care to [facility] August 04, 2019. Prior care was at [facility]. She has a family history of breast cancer (grandmother, mother and sister) tested negative for BRCA 1 and 2 in 2006 and was undergoing annual screening mammograms vigilantly.. October 26, 2018 Screening mammogram: IMPRESSION: Stable unilateral diagnostic mammogram. New 5 mm nodule in the deep upper lateral portion of the left breast. Correlation with ultrasound is recommended to rule out a cyst. October 26 2018 Left breast, stereotactic core biopsy: Fragment of atypical papillary neoplasm. Fragments of focal intraductal hyperplasia without atypia. Mild fibrocystic change. COMMENT An encapsulated papillary carcinoma cannot be excluded. Excision is recommended for definitive classification. December 05, 2018 A. Left breast, lumpectomy with needle localization: Ductal carcinoma in situ. Intraductal papilloma with atypia. Fibrocystic changes and intraductal hyperplasia with focal atypia. Extensive changes consistent with previous biopsy site. See cancer summary below. B. Additional left breast tissue, biopsy: Fibrocystic changes and intraductal hyperplasia without atypia. Fragments of blood clots. DUCTAL CARCINOMA IN SITU SUMMARY: Specimen - partial breast Procedure - excision with wire-guided localization. Lymph node sampling no lymph nodes present. Specimen integrity multiple designated specimens Specimen size 7 x 4 x 3 cm, lumpectomy specimen Additional tissue 1 x 0.5 x 0.5 cm Specimen laterality left Tumor site not identified Size (extent) of DCIS 0.3 cm in greatest dimension (measured microscopically) Number of blocks with DCIS - 4 Number of blocks examined 11 (specimen A B) Histologic type - ductal carcinoma in situ Architectural pattern cribriform Nuclear grade - Grade 1 (low) Necrosis not identified Margins margins are uninvolved by DCIS. The tumor is 0.5 cm away from the closest superior margin. Treatment effect: Response to presurgical surgical (neoadjuvant) therapy - no known presurgical therapy. Lymph nodes not submitted Additional Pathologic Findings extensive changes consistent with previous biopsy site. See comment Intraductal papilloma with atypia. Fibrocystic changes and intraductal hyperplasia with focal atypia. Ancillary Studies ([id number]) ER - positive (>95%, strong) IL - positive (>95%, strong) Her2 ivonne ([facility]) Negative (1+) Her2 by FISH - not performed. Microcalcifications present in both ductal carcinoma in situ and non-neoplastic tissue. Clinical history - Please make reference to previous specimen ([id number]), left breast, stereotactic core biopsy with diagnosis of fragment of atypical papillary neoplasm. Pathologic Staging: pTis(DCIS) pNx Mx Treatment summary: November 2018 partial mastectomy. 2019 adjuvant radiation therapy given at [facility]. September 2018 tamoxifen less than 1 week developed hives and changed to Arimidex. Compliance has been a problem and treatment was interrupted sometime in [id number]. Completed endocrine therapy January 2024. Interval History The patient is presenting to clinic for acute visit with c/o left breast mass and pain. States she noted mass approx 2 weeks ago while bathing. Unsure if area is changing. Has remained tender to the touch. Caffeine intake limited. Denies any changes in the right breast. [facility] Medical History (Updated 04/06/24 @ 15:00 by Imani Vo NP, DIRECTOR OF GUIDANCE-C) History of ductal carcinoma in situ (DCIS) of left breast Pain of left breast Abdominal wall strain Colitis Cast in place on extremity Wears hearing aid Wears glasses Cancer Anxiety Open wound Insulin dependent diabetes mellitus Fibromyalgia Syncope Dietary restriction History of edema History of Holter monitoring History of stress test Cardiology follow-up encounter GERD (gastroesophageal reflux disease) Strep pharyngitis Bilateral hip pain Bilateral knee pain Chronic suprapubic pain Urinary incontinence Polyarthropathy COPD (chronic obstructive pulmonary disease) Noncompliance with diabetes treatment Osteoarthritis Diabetes mellitus type 2 in obese Obesity Type 2 diabetes mellitus Depression Ischemic cardiomyopathy Abnormal mammogram Atherosclerosis of coronary artery of jamul heart without angina pectoris Essential (primary) hypertension Hyperlipidemi (more content not included)... Normal [facility] Orthopedic Visit Reporton Orthopedic Visit Report [facility] [address] [place] [address] OFFICE VISIT Date of Service: 03/20/24 MR#: [id number] Acct: [id number] Name: ANGEL REICH Rep #: [id number] : 1960 Provider: Dr. Alek adkins DO Age/Sex: 63/F Location: [facility] [place] Status: Signed Intake Vital Signs 11/04/23 09:39 Height 4 ft 9 in Intake Visit Reasons: LEFT WRIST Allergies egg Allergy (Severe, Verified 03/20/24 13:08) Anaphylaxis fish derived Allergy (Severe, Verified 03/20/24 13:08) Unknown nitrofurantoin macrocrystalline (From Macrodantin) Allergy (Severe, Verified 03/20/24 13:08) Anaphylaxis calcium carbonate (From Florical) Adverse Reaction (Severe, Verified 03/20/24 13:08) unknown codeine Adverse Reaction (Severe, Verified 03/20/24 13:08) unknown oxycodone HCl (From Percocet) Adverse Reaction (Severe, Verified 03/20/24 13:08) unknown propoxyphene napsylate (From Darvocet-N 100) Adverse Reaction (Severe, Verified 03/20/24 13:08) unknown sodium fluoride (From Florical) Adverse Reaction (Severe, Verified 03/20/24 13:08) unknown Sulfa (Sulfonamide Antibiotics) Adverse Reaction (Severe, Verified 03/20/24 13:08) Hives tamoxifen Adverse Reaction (Severe, Verified 03/20/24 13:08) Hives dulaglutide (From Trulicity) Adverse Reaction (Intermediate, Verified 03/20/24 13:08) Diarrhea glimepiride Adverse Reaction (Intermediate, Verified 03/20/24 13:08) Diarrhea morphine Adverse Reaction (Verified 03/20/24 13:08) Other Medications ???Medication ???Instructions ???Recorded ???Confirmed ???Type aspirin 81 mg tablet,delayed 81 mg PO DAILY@0800 10/12/18 03/20/24 Rx release meclizine 25 mg tablet 25 mg PO TID PRN PRN Dizziness 07/14/20 03/20/24 History calcium carbonate 200 mg calcium 1 tab PO BID 08/26/20 03/20/24 History (500 mg)-vitamin D3 400 unit tablet insulin syringe-needle U-100 0.3 #120 ea 11/24/21 03/20/24 Rx mL 31 gauge x 5/16 (BD Insulin Syringe Ultra-Fine) albuterol sulfate 90 mcg/actuation 2 puff inhalation Q6H PRN 07/15/22 03/20/24 History aerosol inhaler (Ventolin HFA) shortness of breath or wheezing omeprazole 40 mg capsule,delayed 40 mg PO DAILY #90 caps 08/05/22 03/20/24 Rx release duloxetine 30 mg capsule,delayed 30 mg PO BID #180 caps 08/07/22 03/20/24 Rx release nitroglycerin 0.4 mg sublingual 0.4 mg sublingual Q5-15M PRN chest 08/12/22 03/20/24 Rx tablet pain #25 tabs lancets 28 gauge (Comfort EZ #100 ea 09/03/22 03/20/24 Rx Lancets) anastrozole 1 mg tablet 1 mg PO DAILY #90 tabs 12/22/22 03/20/24 Rx carvedilol 6.25 mg tablet 6.25 mg PO BID #180 tabs 12/22/22 03/20/24 Rx bupropion HCl 150 mg tablet,12 hr 150 mg PO DAILY 02/04/23 03/20/24 History sustained-release (Wellbutrin SR) ondansetron 4 mg disintegrating 4 mg PO Q6H PRN nausea and 02/15/23 03/20/24 Rx tablet vomiting #12 tabs fluticasone 250 mcg-salmeterol 50 1 ea inhalation BID PRN shortness 02/19/23 03/20/24 History mcg/dose blistr powdr for of breath or wheezing inhalation trazodone 100 mg tablet 200 mg PO QHS 02/19/23 03/20/24 History Novolog U-100 Insulin aspart 100 20 unit (0.2 mL) subcut TID #20 mL 03/15/23 03/20/24 Rx unit/mL subcutaneous solution (insulin aspart U-100) isosorbide mononitrate 60 mg 60 mg PO DAILY #90 tabs 05/04/23 03/20/24 Rx tablet,extended release 24 hr insulin syringe-needle U-100 0.3 #200 ea 05/07/23 03/20/24 Rx mL 31 gauge x 5/16 (BD Insulin Syringe Ultra-Fine) dicyclomine 10 mg capsule 10 mg PO TIDAC PRN abdominal 05/12/23 03/20/24 Rx pain/Cramping #90 caps insulin glargine 100 unit/mL 42 unit subcut QHS 05/27/23 03/20/24 History subcutaneous solution (Lantus U-100 Insulin) oxybutynin chloride 10 mg 20 mg PO DAILY 05/27/23 03/20/24 History tablet,extended release 24 hr lubiprostone 8 mcg capsule 8 mcg PO BID #60 caps 06/23/23 03/20/24 Rx (Amitiza) blood-glucose meter (Accu-Chek #1 ea 07/01/23 03/20/24 Rx Guide Glucose Meter) blood sugar diagnostic (Accu-Chek #100 ea 08/30/23 03/20/24 Rx Guide test strips) flash glucose sensor (FreeStyle #2 ea 09/08/23 03/20/24 Rx Abhinav 2 Sensor kit) rosuvastatin 40 mg tablet 40 mg PO DAILY cholestrol #90 tabs 09/09/23 03/20/24 Rx prednisone 20 mg tablet 40 mg (2 x 20 mg) PO DAILY #8 tabs 11/04/23 03/20/24 Rx metoclopramide HCl 5 mg tablet 5 mg PO QAC #90 tabs 02/04/24 03/20/24 Rx PFSH Medical History Abdominal wall strain Colitis Cast in place on extremity Wears hearing aid Wears glasses Cancer Anxiety Open wound Insulin dependent diabetes mellitus Fibromyalgia Syncope Dietary restriction History of edema History of Holter monitoring History of stress test Cardiology follow- (more content not included)... Normal [facility] Wrist min 3 Viewson 03-20-20 Wrist min 3 Views [facility] [address] [place] [address] Wrist min 3 Views MR#: [id number] Acct: [id number] Name: ANGEL REICH Rep #: [id number] : 1960 F 63 From: Jeremiah Ortiz MD PCP: Dr. Gaurav Deshpande MD Status: DEP AMB Study: Wrist min 3 Views Date of Exam: 03/20/24 Exam# [id number] Ordering Dr: Alek Mims DO :[id number] STUDY: X-RAY - LEFT WRIST REASON FOR EXAM: Female, 63 years old. Left wrist pain for 8 months. TECHNIQUE: 4 views of the left wrist were obtained. COMPARISON: Left wrist radiographs dated 05/19/2023. FINDINGS: There is a healed fracture deformity of the distal radial metaphysis. There is an old ununited fracture of the ulnar styloid. Normal radiocarpal articulation. Normal carpal bones. Normal carpal articulations. Normal carpometacarpal articulation of the thumb. Normal second through fifth carpometacarpal articulations. Normal visualized metacarpal bones. RAD/Wrist min 3 Views IMPRESSION: Healed fracture deformity of the distal radial metaphysis. 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 Electronically Signed: Jeremiah Ortiz MD at 9:27 EDT , CC: Dr. Gaurav Deshpande MD; Dr. Alek Mims DO Management Expert: Signed Normal [facility] Gastric Emptying Study - 4 H Matty 01-28-2024 Gastric Emptying Study - 4 HR [facility] Imaging Services [address] [place] [address] Gastric Emptying Study - 4 HR MR#: [id number] Acct: [id number] Name: ANGEL REICH Rep #: [id number] : 1960 F 63 From: Neri Turner PCP: Dr. Gaurav Deshpande MD Status: REG CLI Study: Gastric Emptying Study - 4 HR Date of Exam: Exam# [id number] Ordering Dr: Efraín Vila DO :[id number] CLINICAL: 43-year-old female with history of chronic nausea and an abnormal semisolid phase gastric emptying examination. SOLID PHASE 99m Tc SULFUR COLLOID GASTRIC EMPTYING STUDY COMPARISON: Semisolid phase gastric emptying study dated 01/07/2024 FINDINGS: The patient was administered 1.0 mCi of 99m Tc sulfur colloid mixed with macaroni and cheese and consumed per os. Image acquisitions in the anterior-posterior projections were obtained for 235 minutes following meal consumption. There is prompt visualization of the stomach. There is no gastroesophageal reflux identified. First order kinetics are maintained throughout the duration of the acquisitions. The T ? raw data emptying was calculated to be 157.54 minutes, (Normal 65-110 minutes). 73 % emptying and 27 % retention are defined at 4 hours post meal ingestion. NM/Gastric Emptying Study - 4 HR IMPRESSION: 1. ABNORMAL 99m Tc sulfur colloid solid phase gastric emptying imaging examination. A. There is abnormal solid phase gastric emptying compared to normal controls with maintained first order kinetics throughout all components of the examination. (Dedrick et al, Gastroenterology 77: 75, 1979 Hamilton et al, Semin Nucl Med 12: 116, 1981 Ne et al, SNM Procedure Guidelines Adult Solid Meal Gastric Emptying Study 3.0 [email or web address]). B. Greater than 10% retention of the initial gastric contents at 4 hours post dose is consistent with abnormal solid phase gastric emptying which correlates with the results of the T ? emptying calculation. (Selvin patterson al, J Nucl Med 48: 568, 2007). Electronically Signed: Neri Hinojosa DO at 9:17 EDT , CC: Dr. Gaurav Deshpande MD; Efraín Vila DO Management Expert: Signed Normal [facility] Gastric Emptying Studyon Gastric Emptying Study [facility] Imaging Services [address] [place] [address] Gastric Emptying Study MR#: [id number] Acct: [id number] Name: ANGEL REICH Rep #: [id number] : 1960 F 63 From: Neri Turner PCP: Dr. Gaurav Deshpande MD Status: REG CLI Study: Gastric Emptying Study Date of Exam: 01/07/24 Exam# [id number] Ordering Dr: Efraín Vila DO :[id number] CLINICAL: 63-year-old female with history of chronic nausea. SEMI-SOLID PHASE 99m Tc SULFUR COLLOID GASTRIC EMPTYING STUDY COMPARISON: CT of the abdomen-pelvis report 11/04/2023 FINDINGS: The patient was administered 1.1 mCi of 99m Tc sulfur colloid mixed with oatmeal and consumed per os. Image acquisitions in the anterior-posterior projections were obtained for 60 minutes. There is prompt visualization of the stomach. There is no gastroesophageal reflux identified. There is no subjective visualized emptying of the gastric contents. The T ? linear fit was not calculated, (Normal: 12-56 minutes). NM/Gastric Emptying Study IMPRESSION: 1. ABNORMAL 99m Tc sulfur colloid semi-solid phase (oatmeal) gastric emptying imaging examination. A. There is marked, severe delayed semi-solid phase gastric emptying compared to normal controls. (Monica et al, J Nucl Med Tech 38: 186, 2010). Electronically Signed: Neri Hinojosa DO at 13:31 EDT , CC: Dr. Gaurav Deshpande MD; Efraín Vila DO Management Expert: Signed Normal [facility] Gastroenterology Visit Repor ton 12-14-[address] [facility] [address] [place] [address] OFFICE VISIT Date of Service: 12/14/23 MR#: [id number] Acct: [id number] Name: ANGEL REICH Rep #: [id number] : 1960 Provider: Efraín Vila DO Age/Sex: 63/F Location: [facility] Status: Signed Intake Vital Signs 05/27/23 08:56 11/04/23 09:39 Height 4 ft 9 in 4 ft 9 in Intake Visit Reasons: 6 M FU Allergies egg Allergy (Severe, Verified 11/04/23 09:40) Anaphylaxis fish derived Allergy (Severe, Verified 11/04/23 09:40) Unknown nitrofurantoin macrocrystalline (From Macrodantin) Allergy (Severe, Verified 11/04/23 09:40) Anaphylaxis calcium carbonate (From Florical) Adverse Reaction (Severe, Verified 11/04/23 09:40) unknown codeine Adverse Reaction (Severe, Verified 11/04/23 09:40) unknown oxycodone HCl (From Percocet) Adverse Reaction (Severe, Verified 11/04/23 09:40) unknown propoxyphene napsylate (From Darvocet-N 100) Adverse Reaction (Severe, Verified 11/04/23 09:40) unknown sodium fluoride (From Florical) Adverse Reaction (Severe, Verified 11/04/23 09:40) unknown Sulfa (Sulfonamide Antibiotics) Adverse Reaction (Severe, Verified 11/04/23 09:40) Hives tamoxifen Adverse Reaction (Severe, Verified 11/04/23 09:40) Hives dulaglutide (From Trulicity) Adverse Reaction (Intermediate, Verified 11/04/23 09:40) Diarrhea glimepiride Adverse Reaction (Intermediate, Verified 11/04/23 09:40) Diarrhea morphine Adverse Reaction (Verified 11/04/23 09:40) Other [facility] Medical History (Updated 11/12/23 @ 00:10 by Background Daemon) Abdominal wall strain Colitis Cast in place on extremity Wears hearing aid Wears glasses Cancer Anxiety Open wound Insulin dependent diabetes mellitus Fibromyalgia Syncope Dietary restriction History of edema History of Holter monitoring History of stress test Cardiology follow-up encounter GERD (gastroesophageal reflux disease) Strep pharyngitis Bilateral hip pain Bilateral knee pain Chronic suprapubic pain Urinary incontinence Polyarthropathy COPD (chronic obstructive pulmonary disease) Noncompliance with diabetes treatment Osteoarthritis Diabetes mellitus type 2 in obese Obesity Type 2 diabetes mellitus Depression Ischemic cardiomyopathy Abnormal mammogram Atherosclerosis of coronary artery of jamul heart without angina pectoris Essential (primary) hypertension Hyperlipidemia Asthma Memory loss Rheumatoid arthritis Learning disabilities STEMI (ST elevation myocardial infarction) (10/10/18) Surgical History History of lumpectomy of left breast H/O breast surgery History of left heart catheterization (LHC) (03/15/19) History of hysterectomy Hx of cholecystectomy History of coronary artery stent placement (10/10/18) Family History Sister Heart disease Breast cancer Asthma Depression Mother Diabetes Heart disease Breast cancer Arthritis Father Diabetes Heart disease Arthritis Unknown No problems noted. Brother Arthritis Social History Smoking Status: Never smoker alcohol intake: never substance use type: does not use caffeine: No what type of physical activity do you participate in: walking, aerobics and weight training HPI HPI Details: ANGEL REICH, is a 63 F who presents to the office today for follow up. *[facility] hospitalization 05.11.23-05.12.23 for management of BRBPR and chronic conditions of DMII and HTN. CT abd/pel IV only 05.11.23 s/p cholecystectomy; borderline splenomegaly; nonvisualization of pancreatic tail, congenital shortening versus atrophy; diffuse wall thickening of RS through descending colon, left sided colitis. ? Colonoscopy 05.12.23 unsatisfactory prep; granular mucosa RS/sigmoid/descending colons, ischemic colitis. OV 06.22.23 Constipation with blood and mucus that prompted [facility] hospitalization has improved with resolution of blood/mucus. Constipation (which was new to her at onset) continues with BM approximately every 10 days with hard stool and incomplete evacuation. OV 12.14.23 pt reports that she is having a bm once every two weeks, and that when she is able to go, it is a small amount of diarrhea. Pt reports that her stomach hurts after anything that she eats. Pt states that she is having N/V when she is unable to go to the bathroom. Pt reports that she continues with Amitiza, dicyclomine, and omeprazole . ROS Const Constitutional: Positive for fatigue; No fever(s) or weight change ENT ENT: Positive for difficulty swallowing Gastro GI: Positive for abdominal pain, bloating, change in bowel habits, constipation, d (more content not included)... Normal [facility] Abdomen/Pelvis W IV Cont ONL Yon 11-04-2023 Abdomen/Pelvis W IV Cont ONLY [facility] Imaging Services [address] [place], [place] [address] Abdomen/Pelvis W IV Cont ONLY MR#: [id number] Acct: [id number] Name: ANGEL REICH Rep #: [id number] : 1960 F 63 From: Jay boone MD PCP: Dr. Gaurav Deshpande MD Status: DEP ER Study: Abdomen/Pelvis W IV Cont ONLY Date of Exam: Exam# [id number] Ordering Dr: Renae Marinelli MD :[id number] STUDY: CT ABDOMEN AND PELVIS WITH CONTRAST REASON FOR EXAM: Female, 63 years old. RLQ pain RADIATION DOSAGE (If Supplied By Facility): CTDIvol = ( 13.82 ) mGy, DLP = ( 957.01 ) mGycm TECHNIQUE: Transaxial images were obtained from the dome of the diaphragm to the symphysis pubis without oral contrast. IV 100mL [id number]-[id number] was administered. Sagittal and coronal images were reconstructed. Individualized dose optimization techniques were used for this CT. COMPARISON: Comparison is made with prior study May 11, 2023. FINDINGS: Mild degree of increased markings in the anterior medial aspect of the right middle lobe as well as the lung bases suggestive of either linear scarring or atelectasis. Coronary artery calcification. Normal liver. There are surgical clips in the gallbladder fossa consistent with a prior cholecystectomy. Normal spleen. Normal pancreas. Normal bilateral adrenal glands. Normal right kidney. Normal left kidney. Normal visualized stomach. Normal small intestine. Fluid and fecal material is seen throughout the colon. No evidence of obstruction. There is non-visualization of the appendix. There is scattered atherosclerotic calcification of the abdominal aorta, without a demonstrated aneurysm. Normal inferior vena cava. Normal retroperitoneum. Normal urinary bladder. There is absence of the uterus consistent with a prior hysterectomy. Normal abdominal wall. There are mild degenerative changes of the visualized lumbar spine. CT/Abdomen/Pelvis W IV Cont ONLY IMPRESSION: Fluid and fecal material is seen throughout the colon. Status post cholecystectomy and hysterectomy. Electronically Signed: Jay Guzmán MD at 12:12 EDT , CC: Dr. Gaurav Deshpande MD; Dr. Renae Marinelli MD Management Expert: Signed Normal [facility] Absolute lymphocyte countOrd ered By: Renae Marinelli on 11-04-2023 Lymphocytes Auto (Unsp spec) [#/Vol] 1.42 10*3/uL 0.83-4.51 [facility] Automated blood erythrocyte count (number/volume)Ordered By: Renae Marinelli on 11-04-2023 RBC (Bld) [#/Vol] 5.12 10*6/uL Normal 4.2-5.4 [facility] Comment on above: Performed By: #### L 100.0100, L503.6005, L500.2500 #### [facility] [address] [place], [address] Automated blood hematocrit ( percentage)Ordered By: Renae Marinelli on 11-04-2023 Hematocrit (Bld) [Volume fraction] 43.1 % Normal 37-47 [facility] Comment on above: Performed By: #### L 100.0100, L503.6005, L500.2500 #### [facility] [address] [place], [address] Automated lymphocyte count a s percentage of total leukocytesOrdered By: Renae Marinelli on 11-04-2023 Lymphocytes/100 WBC Auto (Unsp spec) 19.6 % 19-41 [facility] Basic Metabolic Profile (BMP )on 11-04-2023 BUN/CRE 20.6 RATIO High 10-20 [facility] Comment on above: Order Comment: REDRA W. PREVIOUS SPECIMEN REJECTED DUE TOHEMOLYSIS. 11/04/23 1031 Yadira Garcia. Performed By: #### L 500.2500 ####[facility] [address] [place], [address] CA,Total 8.3 mg/dL Low 8.5-10.1 [facility] Comment on above: Order Comment: REDRA W. PREVIOUS SPECIMEN REJECTED DUE TOHEMOLYSIS. 11/04/23 1031 Yadira Garcia. Performed By: #### L 500.2500 ####[facility] [address] [place], [address] Chloride [Moles/Vol] 110 mmol/L High 98-107 [facility] Comment on above: Order Comment: REDRA W. PREVIOUS SPECIMEN REJECTED DUE TOHEMOLYSIS. 11/04/23 1031 Yadira Garcia. Performed By: #### L 500.2500 ####[facility] [address] [place], [address] CO2 [Moles/Vol] 24.0 mmol/L Normal 21.0-32.0 [facility] Comment on above: Order Comment: REDRA W. PREVIOUS SPECIMEN REJECTED DUE TOHEMOLYSIS. 11/04/231030 Yadira Garcia. Performed By: #### L 500.2500 ####[facility] [address] [place], [address] Creatinine [Mass/Vol] 0.97 mg/dL Normal 0.55-1.02 [facility] Comment on above: Order Comment: REDRA W. PREVIOUS SPECIMEN REJECTED DUE TOHEMOLYSIS. 11/04/231030 Yadira Garcia. Result Comment: The validity of the calculated GFR GFRAA in patients over 70 years has not been determined. Clinical correlation is essential. Performed By: #### L 500.2500 ####[facility] [address] [place], [address] EST GFR - AA 74 mL/min Normal >60 [facility] Comment on above: Order Comment: REDRA W. PREVIOUS SPECIMEN REJECTED DUE TOHEMOLYSIS. 11/04/231 Yadira Garcia. Result Comment: Afri can Armenian GFR Calc Performed By: #### L 500.2500 ####[facility] [address] [place], [address] GAP 3 Low 5-15 [facility] Comment on above: Order Comment: REDRA W. PREVIOUS SPECIMEN REJECTED DUE TOHEMOLYSIS. 11/04/231 Yadira Garcia. Performed By: #### L 500.2500 ####[facility] [address] [place], [address] GFR/1.73 sq M.predicted among non-blacks MDRD (S/P/Bld) [Vol rate/Area] 61 mL/min/{1.73_m2} Normal >60 [facility] Comment on above: Order Comment: REDRA W. PREVIOUS SPECIMEN REJECTED DUE TOHEMOLYSIS. 11/04/231 Yadira Garcia. Result Comment: Non- GFR Calc Performed By: #### L 500.2500 ####[facility] [address] [place], [address] Glucose [Mass/Vol] 199 mg/dL High 74-106 [facility] Comment on above: Order Comment: REDRA W. PREVIOUS SPECIMEN REJECTED DUE TOHEMOLYSIS. 11/04/231 Yadira Garcia. Result Comment: Fast ing Glucose result greater than or equal to 126 mg/dL suggests DIABETES MELLITUS per A.D.A. criteria. Performed By: #### L 500.2500 ####[facility] [address] [place], [address] Potassium [Moles/Vol] 4.8 mmol/L Normal 3.5-5.1 [facility] Comment on above: Order Comment: REDRA W. PREVIOUS SPECIMEN REJECTED DUE TOHEMOLYSIS. 11/04/231 Yadira Garcia. Performed By: #### L 500.2500 ####[facility] [address] [place], [address] Sodium [Moles/Vol] 137 mmol/L Normal 136-145 [facility] Comment on above: Order Comment: RED W. PREVIOUS SPECIMEN REJECTED DUE TOHEMOLYSIS. 11/04/231030 Yadira Garcia. Performed By: #### L 500.2500 ####[facility] [address] [place], [address] Urea nitrogen [Mass/Vol] 20 mg/dL High 7-18 [facility] Comment on above: Order Comment: REDRA W. PREVIOUS SPECIMEN REJECTED DUE TOHEMOLYSIS. 11/04/231 Yadira Garcia. Performed By: #### L 500.2500 ####[facility] [address] [place], [address] BUN Normal 7-18 [facility] Comment on above: Result Comment: This specimen has been REJECTED due to Laboratory criteria: Hemolyzed. LUIS DANIEL has been notified of need of recollection. 11/04/23 1030 Yadira Garcia Performed By: #### L 100.0100, L503.6005, L500.2500 #### [facility] [address] [place], [address] BUN/CRE Normal 10-20 [facility] Comment on above: Result Comment: This specimen has been REJECTED due to Laboratory criteria: Hemolyzed. LUIS DANIEL has been notified of need of recollection. 11/04/23 1030 Yadira Garcia Performed By: #### L 100.0100, L503.6005, L500.2500 #### [facility] [address] [place], [address] CA,Total Normal 8.5-10.1 [facility] Comment on above: Result Comment: This specimen has been REJECTED due to Laboratory criteria: Hemolyzed. LUIS DANIEL has been notified of need of recollection. 11/04/23 1030 Yadira Garcia Performed By: #### L 100.0100, L503.6005, L500.2500 #### [facility] [address] [place], [address] CL Normal 98-107 [facility] Comment on above: Result Comment: This specimen has been REJECTED due to Laboratory criteria: Hemolyzed. LUIS DANIEL has been notified of need of recollection. 11/04/23 1030 Yadira Garcia Performed By: #### L 100.0100, L503.6005, L500.2500 #### [facility] [address] [place], [address] CO2 Normal 21.0-32.0 [facility] Comment on above: Result Comment: This specimen has been REJECTED due to Laboratory criteria: Hemolyzed. LUIS DANIEL has been notified of need of recollection. 11/04/23 1030 Yadira Garcia Performed By: #### L 100.0100, L503.6005, L500.2500 #### [facility] [address] [place], [address] CREAT,SERUM Normal 0.55-1.02 [facility] Comment on above: Result Comment: This specimen has been REJECTED due to Laboratory criteria: Hemolyzed. LUIS DANIEL has been notified of need of recollection. 11/04/23 1030 Yadira Garcia Performed By: #### L 100.0100, L503.6005, L500.2500 #### [facility] [address] [place], [address] EST GFR Normal >60 [facility] Comment on above: Result Comment: This specimen has been REJECTED due to Laboratory criteria: Hemolyzed. LUIS DANIEL has been notified of need of recollection. 11/04/23 1030 Yadira Garcia Performed By: #### L 100.0100, L503.6005, L500.2500 #### [facility] [address] [place], [address] EST GFR - AA Normal >60 [facility] Comment on above: Result Comment: This specimen has been REJECTED due to Laboratory criteria: Hemolyzed. LUIS DANIEL has been notified of need of recollection. 11/04/23 1030 Yadira Garcia Performed By: #### L 100.0100, L503.6005, L500.2500 #### [facility] [address] [place], [address] GAP Normal 5-15 [facility] Comment on above: Result Comment: This specimen has been REJECTED due to Laboratory criteria: Hemolyzed. LUIS DANIEL has been notified of need of recollection. 11/04/23 1030 Yadira Garcia Performed By: #### L 100.0100, L503.6005, L500.2500 #### [facility] [address] [place], [address] GLU Normal 74-106 [facility] Comment on above: Result Comment: This specimen has been REJECTED due to Laboratory criteria: Hemolyzed. LUIS DANIEL has been notified of need of recollection. 11/04/23 1030 Yadira Garcia Performed By: #### L 100.0100, L503.6005, L500.2500 #### [facility] [address] [place], [address] Potassium Normal 3.5-5.1 [facility] Comment on above: Result Comment: This specimen has been REJECTED due to Laboratory criteria: Hemolyzed. LUIS DANIEL has been notified of need of recollection. 11/04/23 1030 Yadira Garcia Performed By: #### L 100.0100, L503.6005, L500.2500 #### [facility] [address] [place], [address] Basic Metabolic Profile (BMP) Normal 136-145 [facility] Comment on above: Result Comment: This specimen has been REJECTED due to Laboratory criteria: Hemolyzed. LUIS DANIEL has been notified of need of recollection. 11/04/23 1030 Yadira Garcia Performed By: #### L 100.0100, L503.6005, L500.2500 #### [facility] [address] [place], [address] Basophil percentageOrdered B y: Renae Marinelli on 11-04-2023 Basophil percentage 0-5 SEEN /hpf 0-5 [facility] Lactate [Moles/Vol] 1.2 mmol/L Normal 0.4-1.9 [facility] Comment on above: Order Comment: Y Performed By: #### L 100.0100, L503.6005, L500.2500 #### [facility] [address] [place], [address] Chloride [Moles/Vol] 110 mmol/L 98-107 [facility] Glucose [Mass/Vol] 199 mg/dL 74-106 [facility] Comment on above: Fasting Glucose resu lt greater than or equal to 126 mg/dL suggests DIABETES MELLITUS per A.D.A. criteria. Potassium [Moles/Vol] 4.8 mmol/L 3.5-5.1 [facility] Sodium [Moles/Vol] 137 mmol/L 136-145 [facility] Basophils/100 WBC (Bld) 0.6 % Normal 0-1 [facility] Comment on above: Performed By: #### L 100.0100, L503.6005, L500.2500 #### [facility] [address] [place], [address] Eosinophils/100 WBC (Bld) 5.8 % High 0-5 [facility] Comment on above: Performed By: #### L 100.0100, L503.6005, L500.2500 #### [facility] [address] [place], [address] Hemoglobin (Bld) [Mass/Vol] 14.2 g/dL Normal 12.0-15.0 [facility] Comment on above: Performed By: #### L 100.0100, L503.6005, L500.2500 #### [facility] [address] [place], [address] Monocytes/100 WBC (Bld) 6.4 % Normal 0-10 [facility] Comment on above: Performed By: #### L 100.0100, L503.6005, L500.2500 #### [facility] [address] [place], [address] Neutrophils/100 WBC (Bld) 67.2 % Normal 47-70 [facility] Comment on above: Performed By: #### L 100.0100, L503.6005, L500.2500 #### [facility] [address] [place], [address] WBC (Bld) [#/Vol] 7.2 10*3/uL Normal 4.4-11.0 [facility] Comment on above: Performed By: #### L 100.0100, L503.6005, L500.2500 #### [facility] [address] [place], [address] Neutrophils (Bld) [#/Vol] 4.9 10*3/uL 2.0-7.7 [facility] Bilirubin Test strip Ql (U)O rdered By: Renae Marinelli on 11-04-2023 Bilirubin Ql (U) Negative Negative [facility] CBC W/Diff, Automatedon Absolute Lymph 1.42 X10 3/uL Normal 0.83-4.51 [facility] Comment on above: Performed By: #### L 100.0100, L503.6005, L500.2500 #### [facility] [address] [place], [address] Absolute Neut 4.9 X10 3/uL Normal 2.0-7.7 [facility] Comment on above: Performed By: #### L 100.0100, L503.6005, L500.2500 #### [facility] [address] [place], [address] IG% 0.400 Normal 0.0-0.9 [facility] Comment on above: Result Comment: IG% - Immature Granulocytes (promyelocytes, myelocytes and metamyelocytes) > 1% indicates that a LEFT SHIFT is Present. Performed By: #### L 100.0100, L503.6005, L500.2500 #### [facility] [address] [place], [address] Lymphocytes/100 WBC (Bld) 19.6 % Normal 19-41 [facility] Comment on above: Performed By: #### L 100.0100, L503.6005, L500.2500 #### [facility] [address] [place], [address] Nucleated RBC (Bld) [#/Vol] 0 10*3/uL Normal 0-5 [facility] Comment on above: Performed By: #### L 100.0100, L503.6005, L500.2500 #### [facility] [address] [facility] [place], [address] RDW SD 39.3 fl Normal 35.1-43.9 [facility] Comment on above: Performed By: #### L 100.0100, L503.6005, L500.2500 #### [facility] [address] [place], [address] CBC W/Diff, AutomatedOrdered By: Renae Marinelli on 11-04-2023 MCH (RBC) [Entitic mass] 27.7 pg Normal 27.0-32.0 [facility] Comment on above: Performed By: #### L 100.0100, L503.6005, L500.2500 #### [facility] [address] [place], [address] MCHC (RBC) [Mass/Vol] 32.9 g/dL Normal 32-36 [facility] Comment on above: Performed By: #### L 100.0100, L503.6005, L500.2500 #### [facility] [address] [place], [address] Platelet mean volume (Bld) [Entitic vol] 10.9 fL Normal 6.2-12.0 [facility] Comment on above: Performed By: #### L 100.0100, L503.6005, L500.2500 #### [facility] [address] [place], [address] Platelets (Bld) [#/Vol] 244 10*3/uL Normal 150-450 [facility] Comment on above: Performed By: #### L 100.0100, L503.6005, L500.2500 #### [facility] [address] [place], [address] Chest 1 View (Portable)on Chest 1 View (Portable) [facility] Imaging Services [address] [place] [address] Chest 1 View (Portable) MR#: [id number] Acct: [id number] Name: ANGEL REICH Rep #: [id number] : 1960 F 63 From: Jay boone MD PCP: Dr. Gaurav Deshpande MD Status: REG ER Study: Chest 1 View (Portable) Date of Exam: 11/04/23 Exam# [id number] Ordering Dr: Renae Marinelli MD :[id number] STUDY: X-RAY CHEST REASON FOR EXAM: Female, 63 years old. Cough TECHNIQUE: Single AP portable view of the chest. COMPARISON: None. FINDINGS: The lungs are clear and expanded. There is no demonstrated pleural abnormality. Normal size heart. Normal mediastinum and oj. Normal visualized pulmonary arteries. Normal visualized aortic arch and descending thoracic aorta. There are diffuse degenerative changes of the visualized thoracic spine. Normal visualized ribs, clavicles, and shoulders. There is no demonstrated abnormality of the visualized soft tissue structures of the upper abdomen. RAD/Chest 1 View (Portable) IMPRESSION: No acute abnormality is seen. Electronically Signed: Jay Guzmán MD at 10:40 EDT , CC: Dr. Gaurav Deshpande MD; Dr. Renae Marinelli MD Management Expert: Signed Normal [facility] Determination of erythrocyte mean corpuscular volume (MCV)Ordered By: Renae Marinelli on 11-04-2023 MCV (RBC) [Entitic vol] 84.2 fL Normal 81-99 [facility] Comment on above: Performed By: #### L 100.0100, L503.6005, L500.2500 #### [facility] [address] [place], [address] Emergency Department Summary on 11-04-2023 Emergency Department Summary [facility] Medical Records Department [address] [place] [address] Emergency Department Summary 11/04/23 MR#: [id number] Acct: [id number] Name: ANGEL REICH Rep #: [id number] : 1960 63 From: Renae Marinelli MD PCP: Dr. Gaurav Deshpande MD Status:DEP ER Location: ED HPI History of Present Illness Chief Complaint: Abd Pain Informant: patient Narrative Narrative: Patient presents secondary to right lower quadrant abdominal pain. She reports cough and congestion for the past week. Although she is audibly wheezing as I enter the room she denies feeling significant short of breath or noticing wheezing at home. She has not been using her inhalers more than normal. She states that this morning she developed right lower quadrant pain that is rather severe. She has had some diarrhea as well. She has past surgical history of hysterectomy as well as cholecystectomy. [facility] Medical History (Updated 11/04/23 @ 13:[address] Renae Marinelli MD) Abdominal wall strain Abnormal mammogram Anxiety Asthma Atherosclerosis of coronary artery of jamul heart without angina pectoris Bilateral hip pain Bilateral knee pain Cancer Cardiology follow-up encounter Cast in place on extremity Chronic suprapubic pain Colitis COPD (chronic obstructive pulmonary disease) Depression Diabetes mellitus type 2 in obese Dietary restriction Essential (primary) hypertension Fibromyalgia GERD (gastroesophageal reflux disease) History of edema History of Holter monitoring History of stress test Hyperlipidemia Insulin dependent diabetes mellitus Ischemic cardiomyopathy Learning disabilities Memory loss Noncompliance with diabetes treatment Obesity Open wound Osteoarthritis Polyarthropathy Rheumatoid arthritis STEMI (ST elevation myocardial infarction) (10/10/18) Strep pharyngitis Syncope Type 2 diabetes mellitus Urinary incontinence Wears glasses Wears hearing aid Home Medications aspirin 81 mg tablet,delayed release 81 mg PO DAILY@0800 10/12/18 [Rx Last Taken 05/11/23] meclizine 25 mg tablet 25 mg PO TID PRN PRN Dizziness 07/14/20 [History Last Taken 05/10/23] calcium carbonate 200 mg calcium (500 mg)-vitamin D3 400 unit tablet 1 tab PO BID 08/26/20 [History Last Taken 05/11/23] insulin syringe-needle U-100 0.3 mL 31 gauge x 5/16 (BD Insulin Syringe Ultra-Fine) #120 ea 11/24/21 [Rx Last Taken Unknown] albuterol sulfate 90 mcg/actuation aerosol inhaler (Ventolin HFA) 2 puff inhalation Q6H PRN shortness of breath or wheezing 07/15/22 [History Last Taken 05/04/23] omeprazole 40 mg capsule,delayed release 40 mg PO DAILY #90 caps 08/05/22 [Rx Last Taken 05/12/23] duloxetine 30 mg capsule,delayed release 30 mg PO BID #180 caps 08/07/22 [Rx Last Taken 05/11/23] nitroglycerin 0.4 mg sublingual tablet 0.4 mg sublingual Q5-15M PRN chest pain #25 tabs 08/12/22 [Rx Last Taken Unknown] lancets 28 gauge (Comfort EZ Lancets) #100 ea 09/03/22 [Rx Last Taken Unknown] anastrozole 1 mg tablet 1 mg PO DAILY #90 tabs 12/22/22 [Rx Last Taken 05/11/23] carvedilol 6.25 mg tablet 6.25 mg PO BID #180 tabs 12/22/22 [Rx Last Taken 05/11/23] bupropion HCl 150 mg tablet,12 hr sustained-release (Wellbutrin SR) 150 mg PO DAILY 02/04/23 [History Last Taken 05/11/23] ondansetron 4 mg disintegrating tablet 4 mg PO Q6H PRN nausea and vomiting #12 tabs 02/15/23 [Rx Last Taken 05/11/23] fluticasone 250 mcg-salmeterol 50 mcg/dose blistr powdr for inhalation 1 ea inhalation BID PRN shortness of breath or wheezing 02/19/23 [History Last Taken Unknown] trazodone 100 mg tablet 200 mg PO QHS 02/19/23 [History Last Taken 05/11/23] Novolog U-100 Insulin aspart 100 unit/mL subcutaneous solution (insulin aspart U-100) 20 unit (0.2 mL) subcut TID #20 mL 03/15/23 [Rx Last Taken 05/12/23] isosorbide mononitrate 60 mg tablet,extended release 24 hr 60 mg PO DAILY #90 tabs 05/04/23 [Rx Last Taken 05/11/23] insulin syringe-needle U-100 0.3 mL 31 gauge x 5/16 (BD Insulin Syringe Ultra-Fine) #200 ea 05/07/23 [Rx Last Taken Unknown] dicyclomine 10 mg capsule 10 mg PO TIDAC PRN abdominal pain/Cramping #90 caps 05/12/23 [Rx Last Taken Unknown] tramadol 50 mg tablet 50 mg PO Q8H PRN pain #21 tabs 05/19/23 [Rx Last Taken Unknown] insulin glargine 100 unit/mL subcutaneous solution (Lantus U-100 Insulin) 42 unit subcut QHS 05/27/23 [History Last Taken Unknown] oxybutynin chloride 10 mg tablet,extended release 24 hr 20 mg PO DAILY 05/27/23 [History Last Taken Unknown] lubiprostone 8 mcg capsule (Amitiza) 8 mcg PO BID #60 caps 06/23/23 [Rx Last Taken Unknown] blood-glucose meter (Accu-Chek Guide Glucose Meter) #1 ea 07/01/23 [Rx Last Taken Unknown] blood sugar diagnostic (Accu-Chek Guide test strips) #100 ea 08/30/23 [Rx Last Taken Unknown] flash glucose sensor (FreeStyle Abhinav 2 Sensor kit) #2 ea 09/08/23 [Rx Last Taken Unknown] rosu (more content not included)... Normal [facility] Erythrocyte distribution wid th ratioOrdered By: Renae Marinelli on 11-04-2023 Erythrocyte distribution width (RBC) [Ratio] 12.8 % Normal 11.6-14.6 [facility] Comment on above: Performed By: #### L 100.0100, L503.6005, L500.2500 #### [facility] [address] [place], [address] Erythrocyte distribution wid th standard deviationOrdered By: Renae Marinelli on 11-04-2023 Erythrocyte distribution width (RBC) [Entitic vol] 39.3 fL 35.1-43.9 [facility] Immature granulocytes/100 WB C Auto (Bld)Ordered By: Renae Marinelli on 11-04-2023 Immature granulocytes/100 WBC (Bld) 0.400 % 0.0-0.9 [facility] Comment on above: IG% - Immature Granu locytes (promyelocytes, myelocytes and metamyelocytes) > 1% indicates that a LEFT SHIFT is Present. Ketones Test strip Ql (U)Ord ered By: Renae Marinelli on 11-04-2023 Ketones Ql (U) Negative Negative [facility] - Chemistry and C hemistry - challengeOrdered By: Renae Marinelli on 11-04-2023 CO2 [Moles/Vol] 24.0 mmol/L 21.0-32.0 [facility] Urea nitrogen/Creatinine [Mass ratio] 20.6 mg/mg 10-20 [facility] - Hematology and Cell countsOrdered By: Renae Marinelli on 11-04-2023 Nucleated RBC/100 WBC (Bld) [Ratio] 0 % 0-5 [facility] - Microbiology an d Antimicrobial susceptibilityOrdered By: Renae Marinelli on 11-04-2023 SARS-CoV-2 (COVID-19) RNA MARC+probe Ql (Unsp spec) [facility] M100.678on 11-04-2023 M100.678 SARS-CoV-2 (COVID 19 ) Negative INFLUENZA A Negative INFLUENZA B Negative RSV PCR Negative Normal [facility] Comment on above: Performed By: #### L 400.0001, M100.678 ####[facility] [address] [place], [address] Mucus LM Ql (Urine sed)Order ed By: Renae Marinelli on 11-04-2023 Mucus Ql (Urine sed) 0 SEEN /hpf [facility] Nitrite Test strip Ql (U)Ord ered By: Renae Marinelli on 11-04-2023 Nitrite Ql (U) Negative Negative [facility] No Panel InformationOrdered By: Renae Marinelli on 11-04-2023 Urine RBC 0 SEEN /hpf 0-5 [facility] Estimated GFR (MDRD) Amer 74 mL/min >60 [facility] Comment on above: GFR Calc Estimated GFR (MDRD) Non-Af Amer 61 mL/min >60 [facility] Comment on above: Non- GFR Calc Protein Test strip Ql (U)Ord ered By: Renae Marinelli on 11-04-2023 Protein Ql (U) Negative Negative [facility] Serum or plasma calcium osurav urement (mass/volume)Ordered By: Renae Marinelli on 11-04-2023 Calcium [Mass/Vol] 8.3 mg/dL 8.5-10.1 [facility] Serum or plasma creatinine m easurement (mass/volume)Ordered By: Renae Marinelli on 11-04-2023 Creatinine [Mass/Vol] 0.97 mg/dL 0.55-1.02 [facility] Comment on above: The validity of the calculated GFR & GFRAA in patients over 70 years has not been determined. Clinical correlation is essential. Serum or plasma urea nitroge n measurement (mass/volume)Ordered By: Renae Marinelli on 11-04-2023 Urea nitrogen [Mass/Vol] 20 mg/dL 7-18 [facility] Squamous epithelial cells de tection in urine sediment by light microscopyOrdered By: Renae Marinelli on 11-04-2023 Epithelial cells.squamous LM Ql (Urine sed) 0-5 SEEN /hpf 5-10 [facility] Thin prep Papanicolaou smear with manual screeningOrdered By: Renae Marinelli on 11-04-2023 Thin prep Papanicolaou smear with manual screening 3 5-15 [facility] Urinalysis, Completeon 11-03 EPI,SQUAMOUS 0-5 SEEN Normal 5-10 [facility] Comment on above: Order Comment: CLEAN CATCH Performed By: #### L 400.0001, M18 ####[facility] [address] [place], [address] WBC 0-5 SEEN Normal 0-5 [facility] Comment on above: Order Comment: CLEAN CATCH Performed By: #### L 400.0001, [id number] ####[facility] [address] [place], [address] BACTERIA 0 SEEN Normal None Seen [facility] Comment on above: Order Comment: CLEAN CATCH Performed By: #### L 400.0001, M100.678 ####[facility] [address] [place], [address] Mucus Ql (Urine sed) 0 SEEN Normal [facility] Comment on above: Order Comment: CLEAN CATCH Performed By: #### L 400.0001, M100.678 ####[facility] [address] [place], [address] RBC 0 SEEN Normal 0-5 [facility] Comment on above: Order Comment: CLEAN CATCH Performed By: #### L 400.0001, M100.678 ####[facility] [address] [place], [address] Urine blood detectionOrdered By: Renae Marinelli on 11-04-2023 RBC Ql (U) Negative Negative [facility] Urine clarityOrdered By: Kamila Marinelli on 11-04-2023 Clarity (U) Clear Clear [facility] Urine color determinationOrd ered By: Renae Marinelli on 11-04-2023 Color (U) Straw Yellow [facility] Urine glucose detectionOrder ed By: Renae Marinelli on 11-04-2023 Glucose Ql (U) Normal mg/dl Normal [facility] Urine leukocyte esterase det ection by dipstickOrdered By: Renae Marinelli on 11-04-2023 Leukocyte esterase Test strip Ql (U) 25 /ul Negative [facility] Urine pHOrdered By: Renae Marinelli on 11-04-2023 pH (U) 5.0 [pH] 5.0 - 8.0 [facility] Urine sediment bacteria coun t by microscopy (number/high power field)Ordered By: Renae Marinelli on 11-04-2023 Bacteria LM.HPF (Urine sed) [#/Area] 0 /[HPF] None Seen [facility] Urine specific gravity measu rementOrdered By: Renae Marinelli on 11-04-2023 Specific gravity (U) [Rel density] 1.015 1.002-1.03 0 [facility] Urine urobilinogen measureme ntOrdered By: Renae Marinelli on 11-04-2023 Urobilinogen Ql (U) Normal mg/dl Normal [facility] Basophil percentageOrdered B y: Elizabeth Vinson on 05-19-2023 WBC (Bld) [#/Vol] 8.6 10*3/uL 4.4-11.0 [facility] Blood erythrocytes count (nu mber/volume)Ordered By: Elizabeth Vinson on 05-19-2023 RBC (Bld) [#/Vol] 4.64 10*6/uL 4.2-5.4 [facility] Blood hemoglobin measurement (mass/volume)Ordered By: Elizabeth Statserena on 05-19-2023 Hemoglobin (Bld) [Mass/Vol] 13.4 g/dL 12.0-15.0 [facility] Blood platelet mean volumeOr dered By: Elizbaeth Statsusieouljesus manuel on 05-19-2023 Platelet mean volume (Bld) [Entitic vol] 11.7 fL 6.2-12.0 [facility] Determination of erythrocyte mean corpuscular volume (MCV)Ordered By: Elizabeth Statserena on 05-19-2023 MCV (RBC) [Entitic vol] 90.5 fL 81-99 [facility] Hematocrit Auto (Bld) [Volum e fraction]Ordered By: Elizabeth Statserena on 05-19-2023 Hematocrit (Bld) [Volume fraction] 42.0 % 37-47 [facility] Laboratory - Hematology and Cell countsOrdered By: Elizabeth Statserena on 05-19-2023 Erythrocyte distribution width (RBC) [Entitic vol] 41.6 fL 35.1-43.9 [facility] Erythrocyte distribution width (RBC) [Ratio] 12.7 % 11.6-14.6 [facility] MCH (RBC) [Entitic mass] 28.9 pg 27.0-32.0 [facility] MCHC Auto (RBC) [Mass/Vol]Or dered By: Elizabeth Statsusieoulos on 05-19-2023 MCHC (RBC) [Mass/Vol] 31.9 g/dL 32-36 [facility] Platelets bldOrdered By: Avelino tlin Stathopoulos on 05-19-2023 Platelets (Bld) [#/Vol] 361 10*3/uL 150-450 [facility] Basophil percentageOrdered B y: Alek Leon on 05-12-2023 Chloride [Moles/Vol] 106 mmol/L 98-107 [facility] Glucose [Mass/Vol] 250 mg/dL 74-106 [facility] Comment on above: Glucose result great er than or equal to 200 mg/dLsuggests DIABETES MELLITUS per A.D.A. criteria. Potassium [Moles/Vol] 4.0 mmol/L 3.5-5.1 [facility] Sodium [Moles/Vol] 136 mmol/L 136-145 [facility] Glucose Glucometer (BldC) [M ass/Vol]Ordered By: Mabel Ortiz on 05-12-2023 Glucose [Mass/Vol] 245 mg/dL 74-106 [facility] Comment on above: MANAGEMENT OF PATIEN T CARE PER NURSING PROTOCOL Laboratory - Chemistry and C hemistry - challengeOrdered By: Alek Leon on 05-12-2023 CO2 [Moles/Vol] 26.0 mmol/L 21.0-32.0 [facility] Urea nitrogen/Creatinine [Mass ratio] 15.7 mg/mg 10-20 [facility] No Panel InformationOrdered By: Alek Leon on 05-12-2023 Estimated Creatinine Clearance Calc 102.66 ml/min [facility] Estimated GFR (MDRD) Amer 121 mL/min >60 [facility] Comment on above: GFR Calc Estimated GFR (MDRD) Non-Af Amer 100 mL/min >60 [facility] Comment on above: Non- GFR Calc Serum or plasma calcium sourav urement (mass/volume)Ordered By: Alek Leon on 05-12-2023 Calcium [Mass/Vol] 8.1 mg/dL 8.5-10.1 [facility] Serum or plasma creatinine m easurement (mass/volume)Ordered By: Alek Leon on 05-12-2023 Creatinine [Mass/Vol] 0.64 mg/dL 0.55-1.02 [facility] Comment on above: The validity of the calculated GFR & GFRAA in patients over 70 years has not been determined. Clinical correlation is essential. Serum or plasma urea nitroge n measurement (mass/volume)Ordered By: Alek Leon on 05-12-2023 Urea nitrogen [Mass/Vol] 10 mg/dL 7-18 [facility] Thin prep Papanicolaou smear with manual screeningOrdered By: Alek Leon on 05-12-2023 Thin prep Papanicolaou smear with manual screening 4 5-15 [facility] Absolute lymphocyte countOrd ered By: Renae Marinelli on 05-11-2023 Lymphocytes Auto (Unsp spec) [#/Vol] 2.03 10*3/uL 0.83-4.51 [facility] Basophil percentageOrdered B y: Renae Marinelli on 05-11-2023 Basophils/100 WBC (Bld) 0.4 % 0-1 [facility] Bilirubin [Mass/Vol] 0.50 mg/dL 0.20-1.00 [facility] Comment on above: For patients on eltr ombopag therapy, use of Dimension [place] TBIL is not recommended. Eosinophils/100 WBC (Bld) 3.5 % 0-5 [facility] Neutrophils (Bld) [#/Vol] 6.7 10*3/uL 2.0-7.7 [facility] Neutrophils/100 WBC (Bld) 68.9 % 47-70 [facility] Protein [Mass/Vol] 7.3 g/dL 6.4-8.2 [facility] WBC (Bld) [#/Vol] 9.7 10*3/uL 4.4-11.0 [facility] Blood erythrocytes count (nu mber/volume)Ordered By: Renae Marinelli on 05-11-2023 RBC (Bld) [#/Vol] 4.79 10*6/uL 4.2-5.4 [facility] Blood hemoglobin measurement (mass/volume)Ordered By: Alek Leon on 05-11-2023 Hemoglobin (Bld) [Mass/Vol] 14.8 g/dL 12.0-15.0 [facility] Blood lymphocytes/100 leukoc ytesOrdered By: Renae Marinelli on 05-11-2023 Lymphocytes/100 WBC (Bld) 21.0 % 19-41 [facility] Blood monocytes/100 leukocyt esOrdered By: Renae Marinelli on 05-11-2023 Monocytes/100 WBC (Bld) 5.9 % 0-10 [facility] Blood platelet mean volumeOr dered By: Renae Marinelli on 05-11-2023 Platelet mean volume (Bld) [Entitic vol] 10.8 fL 6.2-12.0 [facility] Determination of erythrocyte mean corpuscular volume (MCV)Ordered By: Renae Marinelli on 05-11-2023 MCV (RBC) [Entitic vol] 87.1 fL 81-99 [facility] Direct bilirubinOrdered By: Renae Marinelli on 05-11-2023 Bilirubin.direct [Mass/Vol] 0.11 mg/dL 0.00-0.30 [facility] Hematocrit Auto (Bld) [Volum e fraction]Ordered By: Alek Leon on 05-11-2023 Hematocrit (Bld) [Volume fraction] 43.6 % 37-47 [facility] INR in Blood by Coagulation assayOrdered By: Renae Marinelli on 05-11-2023 INR Coag (Bld) [Relative time] 1.0 {INR} [facility] Laboratory - Chemistry and C hemistry - challengeOrdered By: Renae Marinelli on 05-11-2023 ALP [Catalytic activity/Vol] 72 U/L 45-117 [facility] ALT [Catalytic activity/Vol] 26 U/L 13-56 [facility] Globulin (S) [Mass/Vol] 3.7 g/dL 2.2-4.2 [facility] Laboratory - CoagulationOrde red By: Renae Marinelli on 05-11-2023 aPTT Coag (Bld) [Time] 28.8 s 24.1-36.2 [facility] PT Coag (PPP) [Time] 12.9 s 11.7-14.9 [facility] Laboratory - Hematology and Cell countsOrdered By: Renae Marinelli on 05-11-2023 Erythrocyte distribution width (RBC) [Entitic vol] 38.6 fL 35.1-43.9 [facility] Erythrocyte distribution width (RBC) [Ratio] 11.9 % 11.6-14.6 [facility] Immature granulocytes/100 WBC (Bld) 0.300 % 0.0-0.9 [facility] Comment on above: IG% - Immature Granu locytes (promyelocytes, myelocytes and metamyelocytes) > 1% indicates that a LEFT SHIFT is Present. MCH (RBC) [Entitic mass] 28.8 pg 27.0-32.0 [facility] Nucleated RBC/100 WBC (Bld) [Ratio] 0 % 0-5 [facility] Lower GI hemoglobin IA Ql (S tl)Ordered By: Renae Marinelli on 05-11-2023 Stool Occult Blood (HUAN) Positive [facility] MCHC Auto (RBC) [Mass/Vol]Or dered By: Renae Marinelli on 05-11-2023 MCHC (RBC) [Mass/Vol] 33.1 g/dL 32-36 [facility] Platelets bldOrdered By: Kamila Marinelli on 05-11-2023 Platelets (Bld) [#/Vol] 257 10*3/uL 150-450 [facility] Serum or plasma albumin sourav urement (mass/volume)Ordered By: Renae Marinelli on 05-11-2023 Albumin [Mass/Vol] 3.6 g/dL 3.2-5.0 [facility] Thin prep Papanicolaou smear with manual screeningOrdered By: Renae Marinelli on 05-11-2023 Thin prep Papanicolaou smear with manual screening 17 U/L 15-37 [facility] Laboratory - Hematology and Cell countson 05-07-2023 HbA1c (Bld) [Mass fraction] 10.0 % 4.2-6.3 [facility] Glucose Glucometer (BldC) [M ass/Vol]Ordered By: Aelk Mims on 02-23-2023 Glucose [Mass/Vol] 117 mg/dL 74-106 [facility] Comment on above: MANAGEMENT OF PATIEN T CARE PER NURSING PROTOCOL Culture, urineOrdered By: Suleman Hill on 02-16-2023 Bacteria identified Cx Nom (U) Escherichia coli [facility] Absolute lymphocyte countOrd ered By: Bradly Pastrana on 01-08-2023 Lymphocytes Auto (Unsp spec) [#/Vol] 2.16 10*3/uL 0.83-4.51 [facility] Basophil percentageOrdered B y: Bradly Pastrana on 01-08-2023 Basophils/100 WBC (Bld) 0.6 % 0-1 [facility] Chloride [Moles/Vol] 104 mmol/L 98-107 [facility] Eosinophils/100 WBC (Bld) 2.8 % 0-5 [facility] Glucose [Mass/Vol] 285 mg/dL 74-106 [facility] Comment on above: Glucose result great er than or equal to 200 mg/dLsuggests DIABETES MELLITUS per A.D.A. criteria. Neutrophils (Bld) [#/Vol] 4.2 10*3/uL 2.0-7.7 [facility] Neutrophils/100 WBC (Bld) 58.4 % 47-70 [facility] Potassium [Moles/Vol] 3.8 mmol/L 3.5-5.1 [facility] Sodium [Moles/Vol] 138 mmol/L 136-145 [facility] WBC (Bld) [#/Vol] 7.1 10*3/uL 4.4-11.0 [facility] Blood erythrocytes count (nu mber/volume)Ordered By: Bradly Pastrana on 01-08-2023 RBC (Bld) [#/Vol] 4.92 10*6/uL 4.2-5.4 [facility] Blood hemoglobin measurement (mass/volume)Ordered By: Bradly Pastrana on 01-08-2023 Hemoglobin (Bld) [Mass/Vol] 14.3 g/dL 12.0-15.0 [facility] Blood lymphocytes/100 leukoc ytesOrdered By: Bradly Pastrana on 01-08-2023 Lymphocytes/100 WBC (Bld) 30.3 % 19-41 [facility] Blood monocytes/100 leukocyt esOrdered By: Bradly Pastrana on 01-08-2023 Monocytes/100 WBC (Bld) 7.6 % 0-10 [facility] Blood platelet mean volumeOr dered By: Bradly Pastrana on 01-08-2023 Platelet mean volume (Bld) [Entitic vol] 10.9 fL 6.2-12.0 [facility] Determination of erythrocyte mean corpuscular volume (MCV)Ordered By: Bradly Pastrana on 01-08-2023 MCV (RBC) [Entitic vol] 86.6 fL 81-99 [facility] Hematocrit Auto (Bld) [Volum e fraction]Ordered By: Bradly Pastrana on 01-08-2023 Hematocrit (Bld) [Volume fraction] 42.6 % 37-47 [facility] Laboratory - Chemistry and C hemistry - challengeOrdered By: Bradly Pastrana on 01-08-2023 CO2 [Moles/Vol] 26.0 mmol/L 21.0-32.0 [facility] Natriuretic peptide B (Bld) [Mass/Vol] 19.2 pg/mL 0-100 [facility] Urea nitrogen/Creatinine [Mass ratio] 24.8 mg/mg 10-20 [facility] Laboratory - Hematology and Cell countsOrdered By: Bradly Pastrana on 01-08-2023 Erythrocyte distribution width (RBC) [Entitic vol] 38.5 fL 35.1-43.9 [facility] Erythrocyte distribution width (RBC) [Ratio] 12.2 % 11.6-14.6 [facility] Immature granulocytes/100 WBC (Bld) 0.300 % 0.0-0.9 [facility] Comment on above: IG% - Immature Granu locytes (promyelocytes, myelocytes and metamyelocytes) > 1% indicates that a LEFT SHIFT is Present. MCH (RBC) [Entitic mass] 29.1 pg 27.0-32.0 [facility] Nucleated RBC/100 WBC (Bld) [Ratio] 0 % 0-5 [facility] MCHC Auto (RBC) [Mass/Vol]Or dered By: Bradly Pastrana on 01-08-2023 MCHC (RBC) [Mass/Vol] 33.6 g/dL 32-36 [facility] No Panel InformationOrdered By: Bradly Pastrana on 01-08-2023 Estimated Creatinine Clearance Calc 100.53 ml/min [facility] Estimated GFR (MDRD) Amer 111 mL/min >60 [facility] Comment on above: GFR Calc Estimated GFR (MDRD) Non-Af Amer 92 mL/min >60 [facility] Comment on above: Non- GFR Calc Troponin I High Sensitivity 18 pg/mL 3.0-54.0 [facility] Comment on above: Please Note: [place] Units and Gender Specific Reference Ranges. For more information see Policy Stat Procedure [place] High Sensitivity Troponin (TNIH) and attachments. Platelets bldOrdered By: Fabricio Pastrana on 01-08-2023 Platelets (Bld) [#/Vol] 241 10*3/uL 150-450 [facility] Serum or plasma calcium sourav urement (mass/volume)Ordered By: Bradly Pastrana on 01-08-2023 Calcium [Mass/Vol] 9.5 mg/dL 8.5-10.1 [facility] Serum or plasma creatinine m easurement (mass/volume)Ordered By: Bradly Pastrana on 01-08-2023 Creatinine [Mass/Vol] 0.68 mg/dL 0.55-1.02 [facility] Comment on above: The validity of the calculated GFR & GFRAA in patients over 70 years has not been determined. Clinical correlation is essential. Serum or plasma urea nitroge n measurement (mass/volume)Ordered By: Bradly Pastrana on 01-08-2023 Urea nitrogen [Mass/Vol] 17 mg/dL 7-18 [facility] Thin prep Papanicolaou smear with manual screeningOrdered By: Bradly Pastrana on 01-08-2023 Thin prep Papanicolaou smear with manual screening 8 5-15 [facility] Basophil percentageOrdered B y: Darrius Lore on 10-13-2022 Bilirubin [Mass/Vol] 0.50 mg/dL 0.20-1.00 [facility] Comment on above: For patients on eltr ombopag therapy, use of Dimension [place] TBIL is not recommended. Cholesterol [Mass/Vol] 168 mg/dL <200 [facility] Comment on above: <200 mg/dL Desirable 200-240 mg/dL Borderline >240 mg/dL High Risk Protein [Mass/Vol] 7.0 g/dL 6.4-8.2 [facility] Triglyceride [Mass/Vol] 226 mg/dL <199 [facility] Comment on above: The drugs N-Acetylcy steine and Metamizole may falsely depress this assay.Serum Triglycerides Reference Interval Normal <150 mg/dL Borderline high 150 - 199 mg/dL High 200 - 499 mg/dL Very High > or = 500 mg/dL Direct bilirubinOrdered By: Darrius Torrez on 10-13-2022 Bilirubin.direct [Mass/Vol] 0.12 mg/dL 0.00-0.30 [facility] Laboratory - Chemistry and C hemistry - challengeOrdered By: Darrius Torrez on 10-13-2022 ALP [Catalytic activity/Vol] 68 U/L 45-117 [facility] ALT [Catalytic activity/Vol] 28 U/L 13-56 [facility] Globulin (S) [Mass/Vol] 3.6 g/dL 2.2-4.2 [facility] Serum or plasma albumin sourav urement (mass/volume)Ordered By: Darrius Torrez on 10-13-2022 Albumin [Mass/Vol] 3.4 g/dL 3.2-5.0 [facility] Serum or plasma cholesterol in HDL measurement (mass/volume)Ordered By: Darrius Torrez on 10-13-2022 Cholesterol in HDL [Mass/Vol] 62 mg/dL >40 [facility] Comment on above: The drugs N-Acetylcy steine and Metamizole may falsely depress this assay. Reference Range HDL <40 mg/dL Low HDL Cholesterol HDL >or= 60 mg/dL High HDL Cholesterol Serum or plasma cholesterol in VLDL measurement (mass/volume)Ordered By: Darrius Torrez on 10-13-2022 Cholesterol in VLDL [Mass/Vol] 45 mg/dL 5-40 [facility] Serum or plasma low density lipoprotein (LDL) cholesterol measurement (mass/volume)Ordered By: Darrius Torrez on 10-13-2022 Cholesterol in LDL [Mass/Vol] 61 mg/dL 0-130 [facility] Thin prep Papanicolaou smear with manual screeningOrdered By: Darrius Torrez on 10-13-2022 Thin prep Papanicolaou smear with manual screening 38 U/L 15-37 [facility] Comment on above: Moderate Hemolysis, Result may be falsely increased. Absolute lymphocyte countOrd ered By: Dr. Davidson on 10-01-2022 Lymphocytes Auto (Unsp spec) [#/Vol] 1.39 10*3/uL 0.83-4.51 [facility] Basophil percentageOrdered B y: Dr. Davidson on 10-01-2022 Basophils/100 WBC (Bld) 0.6 % 0-1 [facility] Bilirubin [Mass/Vol] 0.40 mg/dL 0.20-1.00 [facility] Comment on above: For patients on eltr ombopag therapy, use of Dimension [place] TBIL is not recommended. Chloride [Moles/Vol] 98 mmol/L 98-107 [facility] Eosinophils/100 WBC (Bld) 2.8 % 0-5 [facility] Glucose [Mass/Vol] 466 mg/dL 74-106 [facility] Comment on above: 10/01/22Glucose result greater than or equal to 200 mg/dLsuggests DIABETES MELLITUS per A.D.A. criteria. Neutrophils (Bld) [#/Vol] 4.7 10*3/uL 2.0-7.7 [facility] Neutrophils/100 WBC (Bld) 70.1 % 47-70 [facility] Potassium [Moles/Vol] 4.1 mmol/L 3.5-5.1 [facility] Protein [Mass/Vol] 7.0 g/dL 6.4-8.2 [facility] Sodium [Moles/Vol] 134 mmol/L 136-145 [facility] WBC (Bld) [#/Vol] 6.7 10*3/uL 4.4-11.0 [facility] Blood erythrocytes count (nu mber/volume)Ordered By: Dr. Davidson on 10-01-2022 RBC (Bld) [#/Vol] 4.52 10*6/uL 4.2-5.4 [facility] Blood hemoglobin measurement (mass/volume)Ordered By: Dr. Davidson on 10-01-2022 Hemoglobin (Bld) [Mass/Vol] 13.5 g/dL 12.0-15.0 [facility] Blood lymphocytes/100 leukoc ytesOrdered By: Dr. Davidson on 10-01-2022 Lymphocytes/100 WBC (Bld) 20.7 % 19-41 [facility] Blood monocytes/100 leukocyt esOrdered By: Dr. Davidson on 10-01-2022 Monocytes/100 WBC (Bld) 5.5 % 0-10 [facility] Blood platelet mean volumeOr dered By: Dr. Davidson on 10-01-2022 Platelet mean volume (Bld) [Entitic vol] 11.0 fL 6.2-12.0 [facility] Determination of erythrocyte mean corpuscular volume (MCV)Ordered By: Dr. Davidson on 10-01-2022 MCV (RBC) [Entitic vol] 90.5 fL 81-99 [facility] Hematocrit Auto (Bld) [Volum e fraction]Ordered By: Dr. Davidson on 10-01-2022 Hematocrit (Bld) [Volume fraction] 40.9 % 37-47 [facility] Laboratory - Chemistry and C hemistry - challengeOrdered By: Dr. Davidson on 10-01-2022 ALP [Catalytic activity/Vol] 73 U/L 45-117 [facility] ALT [Catalytic activity/Vol] 45 U/L 13-56 [facility] CO2 [Moles/Vol] 28.0 mmol/L 21.0-32.0 [facility] Globulin (S) [Mass/Vol] 3.5 g/dL 2.2-4.2 [facility] Urea nitrogen/Creatinine [Mass ratio] 19.9 mg/mg 10-20 [facility] Laboratory - Hematology and Cell countsOrdered By: Dr. Davidson on 10-01-2022 Erythrocyte distribution width (RBC) [Entitic vol] 43.3 fL 35.1-43.9 [facility] Erythrocyte distribution width (RBC) [Ratio] 13.2 % 11.6-14.6 [facility] Immature granulocytes/100 WBC (Bld) 0.300 % 0.0-0.9 [facility] Comment on above: IG% - Immature Granu locytes (promyelocytes, myelocytes and metamyelocytes) > 1% indicates that a LEFT SHIFT is Present. MCH (RBC) [Entitic mass] 29.9 pg 27.0-32.0 [facility] Nucleated RBC/100 WBC (Bld) [Ratio] 0 % 0-5 [facility] MCHC Auto (RBC) [Mass/Vol]Or dered By: Dr. Davidson on 10-01-2022 MCHC (RBC) [Mass/Vol] 33.0 g/dL 32-36 [facility] No Panel InformationOrdered By: Dr. Davidson on 10-01-2022 Estimated GFR (MDRD) Amer 81 mL/min >60 [facility] Comment on above: GFR Calc Estimated GFR (MDRD) Non-Af Amer 67 mL/min >60 [facility] Comment on above: Non- GFR Calc Platelets bldOrdered By: Dr. Davidson on 10-01-2022 Platelets (Bld) [#/Vol] 248 10*3/uL 150-450 [facility] Serum or plasma albumin sourav urement (mass/volume)Ordered By: Dr. Davidson on 10-01-2022 Albumin [Mass/Vol] 3.5 g/dL 3.2-5.0 [facility] Serum or plasma albumin/glob ulin mass ratioOrdered By: Dr. Davidson on 10-01-2022 Albumin/Globulin [Mass ratio] 1.0 {ratio} 0.9-2.4 [facility] Serum or plasma calcium sourav urement (mass/volume)Ordered By: Dr. Davidson on 10-01-2022 Calcium [Mass/Vol] 9.1 mg/dL 8.5-10.1 [facility] Serum or plasma creatinine m easurement (mass/volume)Ordered By: Dr. Davidson on 10-01-2022 Creatinine [Mass/Vol] 0.90 mg/dL 0.55-1.02 [facility] Comment on above: The validity of the calculated GFR & GFRAA in patients over 70 years has not been determined. Clinical correlation is essential. Serum or plasma urea nitroge n measurement (mass/volume)Ordered By: Dr. Davidson on 10-01-2022 Urea nitrogen [Mass/Vol] 18 mg/dL 7-18 [facility] Thin prep Papanicolaou smear with manual screeningOrdered By: Dr. Davidson on 10-01-2022 Thin prep Papanicolaou smear with manual screening 34 U/L 15-37 [facility] Thin prep Papanicolaou smear with manual screening 8 5-15 [facility] Absolute lymphocyte countOrd ered By: Dr. Ricardo on 09-23-2022 Lymphocytes Auto (Unsp spec) [#/Vol] 1.77 10*3/uL 0.83-4.51 [facility] Basophil percentageOrdered B y: Dr. Ricardo on 09-23-2022 Basophils/100 WBC (Bld) 0.7 % 0-1 [facility] Bilirubin [Mass/Vol] 0.50 mg/dL 0.20-1.00 [facility] Comment on above: For patients on eltr ombopag therapy, use of Dimension [place] TBIL is not recommended. Chloride [Moles/Vol] 104 mmol/L 98-107 [facility] Eosinophils/100 WBC (Bld) 3.2 % 0-5 [facility] Glucose [Mass/Vol] 309 mg/dL 74-106 [facility] Comment on above: Glucose result great er than or equal to 200 mg/dLsuggests DIABETES MELLITUS per A.D.A. criteria. Neutrophils (Bld) [#/Vol] 4.6 10*3/uL 2.0-7.7 [facility] Neutrophils/100 WBC (Bld) 65.0 % 47-70 [facility] Potassium [Moles/Vol] 4.3 mmol/L 3.5-5.1 [facility] Protein [Mass/Vol] 7.3 g/dL 6.4-8.2 [facility] Sodium [Moles/Vol] 137 mmol/L 136-145 [facility] WBC (Bld) [#/Vol] 7.1 10*3/uL 4.4-11.0 [facility] Blood erythrocytes count (nu mber/volume)Ordered By: Dr. Ricardo on 09-23-2022 RBC (Bld) [#/Vol] 4.78 10*6/uL 4.2-5.4 [facility] Blood hemoglobin measurement (mass/volume)Ordered By: Dr. Ricardo on 09-23-2022 Hemoglobin (Bld) [Mass/Vol] 14.0 g/dL 12.0-15.0 [facility] Blood lymphocytes/100 leukoc ytesOrdered By: Dr. Ricardo on 09-23-2022 Lymphocytes/100 WBC (Bld) 25.0 % 19-41 [facility] Blood monocytes/100 leukocyt esOrdered By: Dr. Ricardo on 09-23-2022 Monocytes/100 WBC (Bld) 5.8 % 0-10 [facility] Blood platelet mean volumeOr dered By: Dr. Ricardo on 09-23-2022 Platelet mean volume (Bld) [Entitic vol] 11.2 fL 6.2-12.0 [facility] Determination of erythrocyte mean corpuscular volume (MCV)Ordered By: Dr. Ricardo on 09-23-2022 MCV (RBC) [Entitic vol] 90.6 fL 81-99 [facility] Hematocrit Auto (Bld) [Volum e fraction]Ordered By: Dr. Ricardo on 09-23-2022 Hematocrit (Bld) [Volume fraction] 43.3 % 37-47 [facility] Laboratory - Chemistry and C hemistry - challengeOrdered By: Dr. Ricardo on 09-23-2022 ALP [Catalytic activity/Vol] 72 U/L 45-117 [facility] ALT [Catalytic activity/Vol] 50 U/L 13-56 [facility] CO2 [Moles/Vol] 25.0 mmol/L 21.0-32.0 [facility] Globulin (S) [Mass/Vol] 3.6 g/dL 2.2-4.2 [facility] Urea nitrogen/Creatinine [Mass ratio] 23.7 mg/mg 10-20 [facility] Laboratory - Hematology and Cell countsOrdered By: Dr. Ricardo on 09-23-2022 Erythrocyte distribution width (RBC) [Entitic vol] 42.5 fL 35.1-43.9 [facility] Erythrocyte distribution width (RBC) [Ratio] 13.1 % 11.6-14.6 [facility] Immature granulocytes/100 WBC (Bld) 0.300 % 0.0-0.9 [facility] Comment on above: IG% - Immature Granu locytes (promyelocytes, myelocytes and metamyelocytes) > 1% indicates that a LEFT SHIFT is Present. MCH (RBC) [Entitic mass] 29.3 pg 27.0-32.0 [facility] Nucleated RBC/100 WBC (Bld) [Ratio] 0 % 0-5 [facility] MCHC Auto (RBC) [Mass/Vol]Or dered By: Dr. Ricardo on 09-23-2022 MCHC (RBC) [Mass/Vol] 32.3 g/dL 32-36 [facility] No Panel InformationOrdered By: Dr. Ricardo on 09-23-2022 Estimated GFR (MDRD) Amer 93 mL/min >60 [facility] Comment on above: GFR Calc Estimated GFR (MDRD) Non-Af Amer 77 mL/min >60 [facility] Comment on above: Non- GFR Calc Platelets bldOrdered By: Dr. Ricardo on 09-23-2022 Platelets (Bld) [#/Vol] 269 10*3/uL 150-450 [facility] Serum or plasma albumin sourav urement (mass/volume)Ordered By: Dr. Ricardo on 09-23-2022 Albumin [Mass/Vol] 3.7 g/dL 3.2-5.0 [facility] Serum or plasma albumin/glob ulin mass ratioOrdered By: Dr. Ricardo on 09-23-2022 Albumin/Globulin [Mass ratio] 1.0 {ratio} 0.9-2.4 [facility] Serum or plasma calcium sourav urement (mass/volume)Ordered By: Dr. Ricardo on 09-23-2022 Calcium [Mass/Vol] 9.2 mg/dL 8.5-10.1 [facility] Serum or plasma creatinine m easurement (mass/volume)Ordered By: Dr. Ricardo on 09-23-2022 Creatinine [Mass/Vol] 0.80 mg/dL 0.55-1.02 [facility] Comment on above: The validity of the calculated GFR & GFRAA in patients over 70 years has not been determined. Clinical correlation is essential. Serum or plasma urea nitroge n measurement (mass/volume)Ordered By: Dr. Ricadro on 09-23-2022 Urea nitrogen [Mass/Vol] 19 mg/dL 7-18 [facility] Thin prep Papanicolaou smear with manual screeningOrdered By: Dr. Ricardo on 09-23-2022 Thin prep Papanicolaou smear with manual screening 28 U/L 15-37 [facility] Thin prep Papanicolaou smear with manual screening 8 5-15 [facility] Absolute lymphocyte countOrd ered By: Dr. Davidson on 08-13-2022 Lymphocytes Auto (Unsp spec) [#/Vol] 1.08 10*3/uL 0.83-4.51 [facility] Basophil percentageOrdered B y: Dr. Davidson on 08-13-2022 Basophils/100 WBC (Bld) 0.4 % 0-1 [facility] Bilirubin [Mass/Vol] 0.40 mg/dL 0.20-1.00 [facility] Comment on above: For patients on eltr ombopag therapy, use of Dimension [place] TBIL is not recommended. Chloride [Moles/Vol] 101 mmol/L 98-107 [facility] Eosinophils/100 WBC (Bld) 3.6 % 0-5 [facility] Glucose [Mass/Vol] 383 mg/dL 74-106 [facility] Comment on above: Glucose result great er than or equal to 200 mg/dLsuggests DIABETES MELLITUS per A.D.A. criteria. Neutrophils (Bld) [#/Vol] 3.9 10*3/uL 2.0-7.7 [facility] Neutrophils/100 WBC (Bld) 69.2 % 47-70 [facility] Potassium [Moles/Vol] 4.3 mmol/L 3.5-5.1 [facility] Protein [Mass/Vol] 7.4 g/dL 6.4-8.2 [facility] Sodium [Moles/Vol] 136 mmol/L 136-145 [facility] WBC (Bld) [#/Vol] 5.6 10*3/uL 4.4-11.0 [facility] Blood erythrocytes count (nu mber/volume)Ordered By: Dr. Davidson on 08-13-2022 RBC (Bld) [#/Vol] 4.99 10*6/uL 4.2-5.4 [facility] Blood hemoglobin measurement (mass/volume)Ordered By: Dr. Davidson on 08-13-2022 Hemoglobin (Bld) [Mass/Vol] 14.6 g/dL 12.0-15.0 [facility] Blood lymphocytes/100 leukoc ytesOrdered By: Dr. Davidson on 08-13-2022 Lymphocytes/100 WBC (Bld) 19.3 % 19-41 [facility] Blood monocytes/100 leukocyt esOrdered By: Dr. Davidson on 08-13-2022 Monocytes/100 WBC (Bld) 7.1 % 0-10 [facility] Blood platelet mean volumeOr dered By: Dr. Davidson on 08-13-2022 Platelet mean volume (Bld) [Entitic vol] 11.9 fL 6.2-12.0 [facility] Determination of erythrocyte mean corpuscular volume (MCV)Ordered By: Dr. Davidson on 08-13-2022 MCV (RBC) [Entitic vol] 86.6 fL 81-99 [facility] Hematocrit Auto (Bld) [Volum e fraction]Ordered By: Dr. Davidson on 08-13-2022 Hematocrit (Bld) [Volume fraction] 43.2 % 37-47 [facility] Laboratory - Chemistry and C hemistry - challengeOrdered By: Dr. Davidson on 08-13-2022 ALP [Catalytic activity/Vol] 75 U/L 45-117 [facility] ALT [Catalytic activity/Vol] 42 U/L 13-56 [facility] CO2 [Moles/Vol] 25.0 mmol/L 21.0-32.0 [facility] Globulin (S) [Mass/Vol] 3.4 g/dL 2.2-4.2 [facility] Urea nitrogen/Creatinine [Mass ratio] 13.8 mg/mg 10-20 [facility] Laboratory - Hematology and Cell countsOrdered By: Dr. Davidson on 08-13-2022 Erythrocyte distribution width (RBC) [Entitic vol] 41.6 fL 35.1-43.9 [facility] Erythrocyte distribution width (RBC) [Ratio] 13.4 % 11.6-14.6 [facility] Immature granulocytes/100 WBC (Bld) 0.400 % 0.0-0.9 [facility] Comment on above: IG% - Immature Granu locytes (promyelocytes, myelocytes and metamyelocytes) > 1% indicates that a LEFT SHIFT is Present. MCH (RBC) [Entitic mass] 29.3 pg 27.0-32.0 [facility] Nucleated RBC/100 WBC (Bld) [Ratio] 0 % 0-5 [facility] Laboratory - Hematology and Cell countson 08-13-2022 HbA1c (Bld) [Mass fraction] 9.0 % [facility] Auto (RBC) [Mass/Vol]Or dered By: Dr. Davidson on 08-13-2022 MCHC (RBC) [Mass/Vol] 33.8 g/dL 32-36 [facility] No Panel InformationOrdered By: Dr. Davidson on 08-13-2022 Estimated GFR (MDRD) Amer 77 mL/min >60 [facility] Comment on above: GFR Calc Estimated GFR (MDRD) Non-Af Amer 64 mL/min >60 [facility] Comment on above: Non- GFR Calc Platelets bldOrdered By: Dr. Davidson on 08-13-2022 Platelets (Bld) [#/Vol] 237 10*3/uL 150-450 [facility] Serum or plasma albumin sourav urement (mass/volume)Ordered By: Dr. Davidson on 08-13-2022 Albumin [Mass/Vol] 4.0 g/dL 3.2-5.0 [facility] Serum or plasma albumin/glob ulin mass ratioOrdered By: Dr. Davidson on 08-13-2022 Albumin/Globulin [Mass ratio] 1.2 {ratio} 0.9-2.4 [facility] Serum or plasma calcium sourav urement (mass/volume)Ordered By: Dr. Davidson on 08-13-2022 Calcium [Mass/Vol] 9.3 mg/dL 8.5-10.1 [facility] Serum or plasma creatinine m easurement (mass/volume)Ordered By: Dr. Davidson on 08-13-2022 Creatinine [Mass/Vol] 0.94 mg/dL 0.55-1.02 [facility] Comment on above: The validity of the calculated GFR & GFRAA in patients over 70 years has not been determined. Clinical correlation is essential. Serum or plasma urea nitroge n measurement (mass/volume)Ordered By: Dr. Davidson on 08-13-2022 Urea nitrogen [Mass/Vol] 13 mg/dL 7-18 [facility] Thin prep Papanicolaou smear with manual screeningOrdered By: Dr. Davidson on 08-13-2022 Thin prep Papanicolaou smear with manual screening 25 U/L 15-37 [facility] Thin prep Papanicolaou smear with manual screening 10 5-15 [facility] Laboratory - Microbiology an d Antimicrobial susceptibilityon 07-15-2022 S. pyogenes Ag IA Ql (Unsp spec) Positive [facility] Laboratory - Hematology and Cell countson 05-14-2022 HbA1c (Bld) [Mass fraction] 7.5 % 4.2-6.3 [facility] Laboratory - Hematology and Cell countson 02-16-2022 HbA1c (Bld) [Mass fraction] 8.7 % [facility] Work Phone: Laboratory - Hematology and Cell countson 11-24-2021 HbA1c (Bld) [Mass fraction] 7.7 % [facility] Work Phone: Laboratory - Hematology and Cell countson 11-10-2021 HbA1c (Bld) [Mass fraction] 7.3 % [facility] Work Phone: No Panel Informationon 08-26 Miscellaneous Test Comment MAILED SPECIMEN [facility] Absolute lymphocyte counton 08-14-2021 Lymphocytes Auto (Unsp spec) [#/Vol] 1.95 10*3/uL 0.83-4.51 [facility] Work Phone: Basophil percentageon 2021 Basophil percentage TNP [facility] Work Phone: Comment on above: Test not performedHE MOLYSIS PRESENT REDRAW K IF INDICATEDPrevious reported result: TNP mmol/LEdited by: LUKE on 08/14/21:1859 Basophils/100 WBC (Bld) 0.7 % 0-1 [facility] Work Phone: [phone] Chloride [Moles/Vol] 105 mmol/L 98-107 [facility] Work Phone: Eosinophils/100 WBC (Bld) 5.5 % 0-5 [facility] Work Phone: Glucose [Mass/Vol] 85 mg/dL 74-106 [facility] Work Phone: [phone] Neutrophils (Bld) [#/Vol] 3.8 10*3/uL 2.0-7.7 [facility] Work Phone: Neutrophils/100 WBC (Bld) 56.7 % 47-70 [facility] Work Phone: Sodium [Moles/Vol] 139 mmol/L 136-145 [facility] Work Phone: WBC (Bld) [#/Vol] 6.7 10*3/uL 4.4-11.0 [facility] Work Phone: Blood erythrocytes count (nu mber/volume)on 08-14-2021 RBC (Bld) [#/Vol] 4.19 10*6/uL 4.2-5.4 [facility] Work Phone: Blood hemoglobin measurement (mass/volume)on 08-14-2021 Hemoglobin (Bld) [Mass/Vol] 12.5 g/dL 12.0-15.0 [facility] Work Phone: Blood lymphocytes/100 leukoc yteson 08-14-2021 Lymphocytes/100 WBC (Bld) 29.0 % 19-41 [facility] Work Phone: Blood monocytes/100 leukocyt eson 08-14-2021 Monocytes/100 WBC (Bld) 7.7 % 0-10 [facility] Work Phone: Blood platelet mean volumeon 08-14-2021 Platelet mean volume (Bld) [Entitic vol] 10.7 fL 6.2-12.0 [facility] Work Phone: Determination of erythrocyte mean corpuscular volume (MCV)on 08-14-2021 MCV (RBC) [Entitic vol] 88.8 fL 81-99 [facility] Work Phone: Hematocrit Auto (Bld) [Volum e fraction]on 08-14-2021 Hematocrit (Bld) [Volume fraction] 37.2 % 37-47 [facility] Work Phone: Laboratory - Chemistry and C hemistry - challengeon 08-14-2021 CO2 [Moles/Vol] 28.0 mmol/L 21.0-32.0 [facility] Work Phone: Urea nitrogen/Creatinine [Mass ratio] 24.3 mg/mg 10-20 [facility] Work Phone: Laboratory - Hematology and Cell countson 08-14-2021 Erythrocyte distribution width (RBC) [Entitic vol] 41.3 fL 35.1-43.9 [facility] Work Phone: Erythrocyte distribution width (RBC) [Ratio] 12.8 % 11.6-14.6 [facility] Work Phone: Immature granulocytes/100 WBC (Bld) 0.400 % 0.0-0.9 [facility] Work Phone: Comment on above: IG% - Immature Granu locytes (promyelocytes, myelocytes and metamyelocytes) > 1% indicates that a LEFT SHIFT is Present. MCH (RBC) [Entitic mass] 29.8 pg 27.0-32.0 [facility] Work Phone: Nucleated RBC/100 WBC (Bld) [Ratio] 0 % 0-5 [facility] Work Phone: MCHC Auto (RBC) [Mass/Vol]on 08-14-2021 MCHC (RBC) [Mass/Vol] 33.6 g/dL 32-36 [facility] Work Phone: No Panel Informationon 08-14 D-Dimer Quantitative (PE/DVT) <= 0.27 FEU/ug/m 0.27-0.49 [facility] Work Phone: Comment on above: NORMAL D-Dimer level (<0.50) indicates no DVT or PE. Estimated Creatinine Clearance Calc 99.05 ml/min [facility] Work Phone: Estimated GFR (MDRD) Amer 102 mL/min >60 [facility] Work Phone: Comment on above: GFR Calc Estimated GFR (MDRD) Non-Af Amer 84 mL/min >60 [facility] Work Phone: Comment on above: Non- GFR Calc Troponin I High Sensitivity 4 pg/mL 3.0-54.0 [facility] Work Phone: Comment on above: Please Note: [place] t Units and Gender Specific Reference Ranges. For more information see Policy Stat Procedure [place] High Sensitivity Troponin (TNIH) and attachments. Platelets bldon 08-14-2021 Platelets (Bld) [#/Vol] 297 10*3/uL 150-450 [facility] Work Phone: Serum or plasma calcium sourav urement (mass/volume)on 08-14-2021 Calcium [Mass/Vol] 8.6 mg/dL 8.5-10.1 [facility] Work Phone: Serum or plasma creatinine m easurement (mass/volume)on 08-14-2021 Creatinine [Mass/Vol] 0.74 mg/dL 0.55-1.02 [facility] Work Phone: Comment on above: The validity of the calculated GFR & GFRAA in patients over 70 years has not been determined. Clinical correlation is essential. Serum or plasma urea nitroge n measurement (mass/volume)on 08-14-2021 Urea nitrogen [Mass/Vol] 18 mg/dL 7-18 [facility] Work Phone: Thin prep Papanicolaou smear with manual screeningon 08-14-2021 Thin prep Papanicolaou smear with manual screening 6 5-15 [facility] Work Phone: Laboratory - Hematology and Cell countson 08-07-2021 HbA1c (Bld) [Mass fraction] 9.7 % [facility] Work Phone: Absolute lymphocyte counton 08-14-2019 Lymphocytes Auto (Unsp spec) [#/Vol] 1.36 10*3/uL 0.83-4.51 [facility] Basophil percentageon 2019 Bilirubin [Mass/Vol] 0.70 mg/dL 0.20-1.00 [facility] Chloride [Moles/Vol] 99 mmol/L 98-107 [facility] Eosinophils/100 WBC (Bld) 1.9 % 0-5 [facility] Glucose [Mass/Vol] 348 mg/dL 74-106 [facility] Comment on above: Glucose result great er than or equal to 200 mg/dLsuggests DIABETES MELLITUS per A.D.A. criteria.Please note revised GLUCOSE reference range effective 2017. Neutrophils (Bld) [#/Vol] 6.3 10*3/uL 2.0-7.7 [facility] Potassium [Moles/Vol] 4.1 mmol/L 3.5-5.1 [facility] Protein [Mass/Vol] 7.3 g/dL 6.4-8.2 [facility] Sodium [Moles/Vol] 132 mmol/L 136-145 [facility] WBC (Bld) [#/Vol] 8.4 10*3/uL 4.4-11.0 [facility] Blood erythrocytes count (nu mber/volume)on 08-14-2019 RBC (Bld) [#/Vol] 5.00 10*6/uL 4.2-5.4 [facility] Blood hemoglobin measurement (mass/volume)on 08-14-2019 Hemoglobin (Bld) [Mass/Vol] 14.5 g/dL 12.0-15.0 [facility] Blood lymphocytes/100 leukoc yteson 08-14-2019 Lymphocytes/100 WBC (Bld) 16.3 % 19-41 [facility] Blood monocytes/100 leukocyt eson 08-14-2019 Monocytes/100 WBC (Bld) 5.9 % 0-10 [facility] Blood platelet mean volumeon 08-14-2019 Platelet mean volume (Bld) [Entitic vol] 10.5 fL 6.2-12.0 [facility] Determination of erythrocyte mean corpuscular volume (MCV)on 08-14-2019 MCV (RBC) [Entitic vol] 84.8 fL 81-99 [facility] Hematocrit Auto (Bld) [Volum e fraction]on 08-14-2019 Hematocrit (Bld) [Volume fraction] 42.4 % 37-47 [facility] Laboratory - Chemistry and C hemistry - challengeon 08-14-2019 ALP [Catalytic activity/Vol] 54 U/L 45-117 [facility] ALT [Catalytic activity/Vol] 24 U/L 13-56 [facility] CO2 [Moles/Vol] 24.0 mmol/L 21.0-32.0 [facility] Globulin (S) [Mass/Vol] 3.7 g/dL 2.2-4.2 [facility] Urea nitrogen/Creatinine [Mass ratio] 19.5 mg/mg 10-20 [facility] Laboratory - Hematology and Cell countson 08-14-2019 Basophils/100 WBC (Unsp spec) 0.6 % 0-1 [facility] Erythrocyte distribution width (RBC) [Entitic vol] 36.2 fL 35.1-43.9 [facility] Erythrocyte distribution width (RBC) [Ratio] 11.9 % 11.6-14.6 [facility] Immature granulocytes/100 WBC (Bld) 0.400 % 0.0-0.9 [facility] Comment on above: IG% - Immature Granu locytes (promyelocytes, myelocytes and metamyelocytes) > 1% indicates that a LEFT SHIFT is Present. MCH (RBC) [Entitic mass] 29.0 pg 27.0-32.0 [facility] Neutrophils/100 WBC (Bld) 74.9 % 47-70 [facility] Nucleated RBC/100 WBC (Bld) [Ratio] 0 % 0-5 [facility] MCHC Auto (RBC) [Mass/Vol]on 08-14-2019 MCHC (RBC) [Mass/Vol] 34.2 g/dL 32-36 [facility] No Panel Informationon 08-14 Estimated Creatinine Clearance Calc 55.81 ml/min [facility] Estimated GFR (MDRD) Amer 99 mL/min >60 [facility] Comment on above: GFR Calc Estimated GFR (MDRD) Non-Af Amer 81 mL/min >60 [facility] Comment on above: Non- GFR Calc Platelets bldon 08-14-2019 Platelets (Bld) [#/Vol] 222 10*3/uL 150-450 [facility] Serum or plasma albumin sourav urement (mass/volume)on 08-14-2019 Albumin [Mass/Vol] 3.6 g/dL 3.2-5.0 [facility] Serum or plasma albumin/glob ulin mass ratioon 08-14-2019 Albumin/Globulin [Mass ratio] 1.0 {ratio} 0.9-2.4 [facility] Serum or plasma calcium sourav urement (mass/volume)on 08-14-2019 Calcium [Mass/Vol] 9.3 mg/dL 8.5-10.1 [facility] Serum or plasma creatinine m easurement (mass/volume)on 08-14-2019 Creatinine [Mass/Vol] 0.77 mg/dL 0.55-1.02 [facility] Comment on above: The validity of the calculated GFR & GFRAA in patients over 70 years has not been determined. Clinical correlation is essential. Serum or plasma urea nitroge n measurement (mass/volume)on 08-14-2019 Urea nitrogen [Mass/Vol] 15 mg/dL 7-18 [facility] Thin prep Papanicolaou smear with manual screeningon 08-14-2019 Thin prep Papanicolaou smear with manual screening 17 U/L 15-37 [facility] Thin prep Papanicolaou smear with manual screening 9 5-15 [facility] NURSING PROGon 03-18-2017 NURSING PROG HNO ID: [id number] thor: Marissa (Rn) SURINDER Flynnervice: (none)Author Type: Registered NurseType: Nursing Progress NoteFiled: 03/18/2017 7:25 AMNote Text:PACC complete 03/16/17 at [facility]. H and P 03/16/17. Labs 03/16/17cbc/diff-wnl, Bmp-BS [id number] fax to Dr Slater. Hgba1c 01/14/17 10.5.Ekg 01/30/16 NSR with SA. LMP- s/p hysterectomy. BMI 32.2.Hx IDDM,asthma--Asthma-nebulize r 2x/week AND abulterol 1-2x/month, Hearingimpaired-since age 4, reads lipsSignificant Anesthesia Considerations: Postop nausea/vomitingCONSULTS:Kiara ent does not require consults for optimization at this time.Message sent to ZACHARY marte requesting they inform Dr. Slater of A1C and labresults re: glucose in 400s--doneChart check pending response RE: BS 422. ZACHARY Cross Normal [facility] HISTORY PHYSICALon 7 HISTORY PHYSICAL HNO ID: [id number] thor: Anastacia Dwyer) Paco: (none)Author Type: Physician AssistantType: HANDPFiled: 03/17/2017 1:45 PMNote Text:HISTORY AND PHYSICAL EXAMINATIONSERVICE DATE: 03/16/2017SERVICE TIME: 3:11 [facility] PHYSICIAN: SEA Pimentel FOR VISIT:Angel Reich is a 56 year old female who is scheduled for left middlefinger trigger finger release at the request of Dr. Cordell Slater forconsultation. My final recommendation will be communicated back to therequesting physician by way of shared medical record or letter.The patient has the following:ACTIVE PROBLEM LISTType II Or Unspecified Type Diabetes Mellitus Without Mention ofComplication, Not Stated As UncontrolledEssential Hypertension, BenignGerd (Gastroesophageal Reflux Disease)AsthmaFibromyalgiaMi croalbuminuriaInflammatory Polyarthropathy (Hcc)DepressionHyperlipidemi aDiabetes Mellitus Type 2, Uncontrolled, Without Complications (Hcc)Trigger Middle Finger of Left HandSteroid-Induced OsteopeniaTrigger Finger, Left Middle FingerCarpal Tunnel Syndrome, LeftPonv (Postoperative Nausea and Vomiting)SUBJECTIVECHIEF COMPLAINT: left middle trigger fingerHPI:Angel Reich is a 56 year old female that presents c/o a 2 monthhistory of left middle trigger finger that has worsened with time. Noinjury or previous surgery on finger.Pain is constant and described as aching in nature. Pain does not radiate.Aggravating factors include grasping objects, opening jars.Alleviated by nothing.Previous treatments include injection.Denies recent illness, fever or chills.PAST MEDICAL HISTORYDiagnosis Date- Asthma- Depressive disorder, not elsewhere classified- Essential hypertension, benign- Family history of malignant neoplasm of breast mother and sisters- Fibromyalgia- Generalized osteoarthrosis, unspecified site- GERD (gastroesophageal reflux disease)- Hearing impaired since age 4, reads lips- Other and unspecified hyperlipidemia- PONV (postoperative nausea and vomiting) 03/16/2017- Type II or unspecified type diabetes mellitus without mention ofcomplication, not stated as uncontrolledPAST SURGICAL [id number]: BREAST BIOPSY CORE Comment: negNo date: INCISION EARDRUM,ASPIR,GEN ANESTH Comment: Myringotomy/[id number]: LEFT HEART CATH,PERCUTANEOUS Comment: Cardiac cath, L heartNo date: PAST SURGICAL HISTORY OF Comment: corrective eye surgeryNo date: REMOVAL GALLBLADDER Comment: CholecystectomyNo date: TOTAL ABDOM HYSTERECTOMY Comment: Hysterectomy, TAHFAMILY HISTORY Coronary Artery Disease Mother Diabetes Mother Breast Cancer Mother Coronary Artery Disease Father Diabetes Father Hypertension Father Diabetes Sister Diabetes Sister Diabetes Sister Diabetes Sister Diabetes Brother Diabetes Brother Coronary Artery Disease Brother Coronary Artery Disease SisterSOCIAL HISTORY:Social History Marital status: Spouse name: Tello Years of education: Number of children: 1Occupational HistoryOccupation Employer Commentnone/retred [employer]*Social History Main Topics Smoking status: Never Smoker Smokeless status: Never Used Alcohol use: No Drug use: No Sexual activity: YesSocial History Narrative , , has one daughter-. She relates highest levelof education was 5th grade.Prior to Admission medications as of 03/16/17 1515Medication Sig Last Dose TakingtraZODone (DESYREL) 100 mg tablet Take 2 tablets by mouth daily atbedtime. Yescitalopram (CELEXA) 40 mg tablet Take 1 tablet by mouth once daily. Yesinsulin NPH human (HUMULIN N) injection Inject 23 Units subcutaneouslytwice daily. Yesinsulin regular human (HUMULIN R U-100) 100 unit/mL injection Inject 14Units subcutaneously three times daily before meals. Yesibuprofen (MOTRIN) 800 mg tablet Take 1 tablet by mouth every 8 hours asneeded for Pain. Take with food. Yesrosuvastatin (CRESTOR) 40 mg tablet Take 1 tablet by mouth daily atbedtime. Yesmeclizine (ANTIVERT) 25 mg tab Take 25 mg by mouth every 6 hours asneeded. Yesalbuterol (PROVENTIL) 2.5 mg/3 mL nebulizer solution Inhale 2.5-5 mg asinstructed as directed. YesPSYLLIUM SEED, WITH SUGAR, (METAMUCIL ORAL) Take by mouth as needed. Yespolyethylene glycol 3350 (MIRALAX) 17 gram/dose powder Take 17 g by mouthonce daily.Patient taking differently: Take 17 g by mouth as needed. Yesaspirin, enteric coated (ASPIR-LOW) 81 mg EC tablet Take 1 tablet by mouthonce daily. Yesalbuterol 90 mcg/actuation aero FOR WHEEZING AND SHORTNESS OFBREATH.Inhale one(1) - two(2) puffs four(4) times a day as needed forwheezing and shortness of breath. Yesblood sugar diagnostic (ACCU-CHEK GWENDOLYN PLUS TEST STRP) test strip Testblood sugar(s) 4 times daily. Dx: 250.02. Insulin: YesInsulin Syringe-Needle U-100 (INSULIN SYRINGE) 1/2 mL 30 gauge x 5/16 syrgUse 1 syringe for each dose 5/dayLancets lancets Test blood sugar(s) 3 times daily. Dx: Type 2 DM -Uncontrolled E11.65 Insulin: Yesblood sugar diagnostic (BLOOD GLUCOSE TEST) test strip Test blood sugar(s)3 times daily. Dx: Type 2 DM - Uncontrolled E11.65 Insulin: YesAlcohol Swabs (ALCOHOL PREP SWABS) padm Apply 1 application to affectedarea four times daily.Lancets (ACCU-CHEK SOFTCLIX LANCETS) lancets Test blood sugar(s) 4 timesdaily. Dx: 250.02. Insulin: YesNo medication comments found.ALLERGIESAllergen Reactions- Fish Swelling- Eggs [Other] Shortness of Breath- Codeine Anaphylaxis- Darvocet A500 [Prop*- Florone [Diflorason*- Glucovance [Glyburi* Hives- Macrodantin [Nitrof*- Metformin Vomiting- Morphine Mental Status Change- Percocet [Oxycodone* Hives- Prevacid [Lansopraz* Anaphylaxis- Sulfa (Sulfonamide * Hives- Vicodin [Hydrocodon*REVIEW OF SYSTEMS:PAIN ASSESSMENT: PainPain Score: 7/10Pain Location: Hand-RightDescription: AchingFrequency: ContinuousIntervention: RepositionGeneral: No weight loss, malaise or fevers.Neuro: +impaired sensorium right hand and feet ;No history of TIAs,stroke, headaches, tremors, 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 Negative for chest pain, orthopnea, PND, lightheadedness orsyncope. Negative for heart murmur. Negative for palpitations orarrhythmia. Negative for h/o DVT/PE. Negative for LE edema. No VT.EKG 01/2016:Procedure Date : Jan 30 2016 14:17Edit Date : Feb 06 2016 07:00Diagnosis:NORMAL SINUS RHYTHM WITH SINUS ARRHYTHMIANORMAL ECGVentricular Rate : 67 BPMAtrial Rate : 67 BPMP-R Interval : 136 msQRS Duration : 84 msQ-T Interval : 400 msQTC Calculation(Bezet) : 422 msP [place] : 48 degreesR [place] : 42 degreesT [place] : 44 degreesGI: Positive for GERD-currently no RX needed; No liver disease. No ETOHuse.: No history of dysuria, frequency or incontinence,, stones or chronickidney diseaseGYN: Negative for abnormal vaginal bleeding, abnormal vaginal discharge. : Denies, No LMP recorded. Patient has had a hysterectomy.Endocrine: Diabetes Mellitus on insulin-poor control-A1C 10.5 (12/2016); Nothyroid d/o. No steroids in past 30 days.Hematology: Chronic anti-coagulation / platelet meds (Aspirin); Nobleeding or clotting d/o.Oncology: No history of CA metastasis, chemo within 30 days, orradiotherapy within 90 days. Has not lost 10% of body wt in 6 months. 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 No JVD. Pulseregular.Lungs: Normal breath sounds, no wheezes or crackles., No chest deformitiesor chest wall tenderness.Abdomen: Soft, non-tender, no rigidity., No masses or organomegaly.Extremities: No deformity, no edema or tenderness, no joint swelling orclubbing.Neurological: Normal cognition and motor skills. Gait normal. Noweakness or sensory deficit.Pulses: Carotid and radial pulses normal +2.Diagnostic tests reviewed for today's visit: Lab Value Units Date High Low HB No results within date range. HCT No results within date range. WBC No results within date range. PLT No results within date range. NA 138 mmol/L 01/13/2017 144 136 K 4.1 mmol/L 01/13/2017 5.1 3.7GLUC 228 mg/dL 01/13/2017 99 74 BUN 16 mg/dL 01/13/2017 21 7 CREAT 0.70 mg/dL 01/13/2017 0.96 0.58 PTSEC No results within date range. INR No results within date range. APTT No results within date range. ALT 11 U/L 01/13/2017 38 7 AST 17 U/L 01/13/2017 35 13 TBILI 0.3 mg/dL 01/13/2017 1.3 0.2 TSH 1.560 uU/mL 01/13/2017 5.500 0.400 Lab Value Units Date High Low HCGQT No results within date range. UHCG No results within date range. HCG, BODY* No results within date range. Lab Value Units Date High Low ABORHD No results within date range. ABSCREEN No results within date range.Hemoglobin A1C (%)Date Value01/13/2017 10.502/06/2017 11.411/03/2016 12.906/ 11.203/ 10.6 Most recent labsMost recent imagingMost recent EKG:see CRISTOBAL Alvarado in EpicAssessmentASSESSMENTPati ent has the following medical conditions:PONVObesity-BMI 32.38Asthma-nebulizer 2x/week AND abulterol 1-2x/monthIDDM-poorly controlled-A1C [id number] eatedLeft hand painRA-no dumper operator-no medsFibromyalgiaMETS:Climb a flight of stairs or walk up a hill (5.50 METs)Patient denies any chest pain or undue shortness of breath with the abovephysical activity.ASA Class: 3ANESTHESIA FINDINGS:Intubation History: No history of difficult intubationSignificant Anesthesia Considerations: Postop nausea/vomitingAirway Exam: General: Normal appearance Mallampati Score is CLASS II ULBT: Class II - Lower incisors can bite the upper lip below thevermillion line Neck: Distance from hyoid to mentum during neck extension is at least 3finger breaths, Limited movement turning to one or both sides, Pain withneck movement Mouth: Normal tongue size and Mouth opening greater than 2 finger breaths Dentition: IntactAirway History: No abnormal airway historySTOP BANG Score:Criteria:TiredHyperten sionAge over 50 (56 year old)Score = 3PLANThis patient is optimally prepared for surgery pending LABS.CONSULTS:Patient does not require consults for optimization at this time.Message sent to medical transcription requesting they inform Dr. Slater of A1C and labresults re: glucose in 400s.The Following Tests/Procedures Have Been Initiated:Orders Placed This Encounter BASIC METABOLIC PNL CBC + DIFFPlanned Anesthetic: MACInstructions Given to Patient:Patient given verbal and written preop instructions and voicescomprehension and compliance.SIGNATURE: Anastacia Nam PA-C PATIENT NAME: Angel ReichDATE: March 16, 2017 : 3:11 PM PAGER/CONTACT #: [facility] Vital Signs Date Time Vital Sign Value Performing Clinician Kathie johnson 05-29-2024 13: Body height 144.8 cm Doris Tobin MD Work Phone: [facility] 05-29-2024 13: Body mass index (BMI) [Ratio] 37.44 kg/m2 Doris Tobin MD Work Phone: [facility] 05-29-2024 13: Body weight 78.47 kg Doris Tobin MD Work Phone: [facility] 05-29-2024 13: Diastolic blood pressure 73 mm[Hg] Doris Tobin MD Work Phone: [facility] 05-29-2024 13:10-0400 Heart rate 75 /min Doris Tobin MD Work Phone: [facility] 05-29-2024 13:10-0400 Respiratory rate 16 /min Doris Tobin MD Work Phone: [facility] 05-29-2024 13:10-0400 SaO2% (BldA) [Mass fraction] 93 % Doris Tobin MD Work Phone: [facility] 05-29-2024 13:10-0400 Systolic blood pressure 108 mm[Hg] Doris Tobin MD Work Phone: [facility] 11-04-2023 13:15-0400 Body temperature 97.2 [degF] DO Felicita Liz Work Phone: [facility] 11-04-2023 13:15-0400 Diastolic blood pressure 87 mm[Hg] DO Felicita Liz Work Phone: [facility] 11-04-2023 13:15-0400 Heart rate 67 /min DO Felicita Liz Work Phone: [facility] 11-04-2023 13:15-0400 Respiratory rate 16 /min DO Felicita Liz Work Phone: [facility] 11-04-2023 13:15-0400 SaO2% (BldA) [Mass fraction] 95 % DO Felicita Liz Work Phone: [facility] 11-04-2023 13:15-0400 Systolic blood pressure 144 mm[Hg] DO Felicita Liz Work Phone: [facility] 11-04-2023 09:39-0400 Body height 144.78 cm DO Felicita Liz Work Phone: [facility] 09-14-2023 11:35-0500 Body height 144.78 cm DO Felicita Liz Work Phone: [facility] 09-14-2023 11:35-0500 Body mass index (BMI) [Ratio] 38.6 kg/m2 DO Felicita Liz Work Phone: [facility] 09-14-2023 11:35-0500 Body temperature 97.6 [degF] DO Felicita Liz Work Phone: [facility] 09-14-2023 11:35-0500 Body weight 80.96 kg DO Felicita Liz Work Phone: [facility] 09-14-2023 11:35-0500 Diastolic blood pressure 80 mm[Hg] DO Felicita Liz Work Phone: [facility] 09-14-2023 11:35-0500 Heart rate 68 /min DO Felicita Liz Work Phone: [facility] 09-14-2023 11:35-0500 Respiratory rate 18 /min DO Felicita Liz Work Phone: [facility] 09-14-2023 11:35-0500 SaO2% (BldA) [Mass fraction] 96 % DO Felicita Liz Work Phone: [facility] 09-14-2023 11:35-0500 Systolic blood pressure 120 mm[Hg] DO Felicita Liz Work Phone: [facility] 05-27-2023 08:56-0400 Body height 144.78 cm DO Felicita Liz Work Phone: [facility] 05-27-2023 08:56-0400 Body mass index (BMI) [Ratio] 34.6 kg/m2 DO Felicita Liz Work Phone: [facility] 05-27-2023 08:56-0400 Body weight 72.57 kg DO Felicita Liz Work Phone: [facility] 05-27-2023 08:56-0400 Diastolic blood pressure 78 mm[Hg] DO Felicita Liz Work Phone: [facility] 05-27-2023 08:56-0400 Heart rate 63 /min DO Felicita Liz Work Phone: [facility] 05-27-2023 08:56-0400 Respiratory rate 16 /min DO Felicitasharon Hawkinsnger Work Phone: [facility] 05-27-2023 08:56-0400 Systolic blood pressure 130 mm[Hg] DO Felicita Liz Work Phone: [facility] 05-12-2023 14:34-0400 Body temperature 97.6 [degF] DO Felicita Liz Work Phone: [facility] 05-12-2023 14:34-0400 Diastolic blood pressure 61 mm[Hg] DO Felicita Liz Work Phone: [facility] 05-12-2023 14:34-0400 Heart rate 80 /min DO Felicita Liz Work Phone: [facility] 05-12-2023 14:34-0400 Respiratory rate 18 /min DO Felicita Liz Work Phone: [facility] 05-12-2023 14:34-0400 SaO2% (BldA) [Mass fraction] 94 % DO Felicita Liz Work Phone: [facility] 05-12-2023 14:34-0400 Systolic blood pressure 105 mm[Hg] DO Felicita Liz Work Phone: [facility] 05-11-2023 23:21-0400 Body height 144.78 cm DO Felicita Liz Work Phone: [facility] 05-11-2023 23:21-0400 Body mass index (BMI) [Ratio] 34.9 kg/m2 DO Felicita Liz Work Phone: [facility] 05-11-2023 23:21-0400 Body weight 73.22 kg DO Felicita Liz Work Phone: [facility] 05-07-2023 13:09-0400 Body mass index (BMI) [Ratio] 34.6 kg/m2 DO Felicita Liz Work Phone: [facility] 05-07-2023 13:09-0400 Body temperature 98 [degF] DO Felicita Liz Work Phone: [facility] 05-07-2023 13:09-0400 Body weight 72.57 kg DO Felicita Liz Work Phone: [facility] 05-07-2023 13:09-0400 Diastolic blood pressure 62 mm[Hg] DO Felicita Liz Work Phone: [facility] 05-07-2023 13:09-0400 Heart rate 78 /min DO Felicita Liz Work Phone: [facility] 05-07-2023 13:09-0400 Respiratory rate 16 /min DO Felicita Liz Work Phone: [facility] 05-07-2023 13:09-0400 SaO2% (BldA) [Mass fraction] 97 % DO Felicita Liz Work Phone: [facility] 05-07-2023 13:09-0400 Systolic blood pressure 94 mm[Hg] DO Felicita Liz Work Phone: [facility] 03-23-2023 14:01-0400 Body mass index (BMI) [Ratio] 36.6 kg/m2 DO Felicita Liz Work Phone: [facility] 03-23-2023 14:01-0400 Body temperature 97.3 [degF] DO Felicita Liz Work Phone: [facility] 03-23-2023 14:01-0400 Body weight 76.77 kg DO Felicita Liz Work Phone: [facility] 03-23-2023 14:01-0400 Diastolic blood pressure 81 mm[Hg] DO Felicita Liz Work Phone: [facility] 03-23-2023 14:01-0400 Heart rate 72 /min DO Felicita Liz Work Phone: [facility] 03-23-2023 14:01-0400 Respiratory rate 16 /min DO Felicita Liz Work Phone: [facility] 03-23-2023 14:01-0400 SaO2% (BldA) [Mass fraction] 94 % DO Felicita Liz Work Phone: [facility] 03-23-2023 14:01-0400 Systolic blood pressure 129 mm[Hg] DO Felicita Liz Work Phone: [facility] 02-23-2023 15:30-0400 Body temperature 97.5 [degF] DO Felicita Liz Work Phone: [facility] 02-23-2023 15:30-0400 Diastolic blood pressure 88 mm[Hg] DO Felicita Liz Work Phone: [facility] 02-23-2023 15:30-0400 Heart rate 74 /min DO Felicita Liz Work Phone: [facility] 02-23-2023 15:30-0400 Respiratory rate 16 /min DO Felicita Liz Work Phone: [facility] 02-23-2023 15:30-0400 SaO2% (BldA) [Mass fraction] 94 % DO Felicita Liz Work Phone: [facility] 02-23-2023 15:30-0400 Systolic blood pressure 165 mm[Hg] DO Felicita Liz Work Phone: [facility] 02-23-2023 14:45-0400 Inhaled oxygen flow rate 2 L/min DO Felicita Liz Work Phone: [facility] 02-23-2023 12:53-0400 Body mass index (BMI) [Ratio] 35.6 kg/m2 DO Felicita Liz Work Phone: [facility] 02-23-2023 12:53-0400 Body weight 74.8 kg DO Felicita Liz Work Phone: [facility] 02-19-2023 09:50-0400 Body weight 74.84 kg DO Felicita Liz Work Phone: [facility] 02-15-2023 09:15-0400 Body height 144.78 cm DO Felicita Liz Work Phone: [facility] 02-15-2023 09:15-0400 Body mass index (BMI) [Ratio] 36.3 kg/m2 DO Felicita Liz Work Phone: [facility] 02-15-2023 09:15-0400 Body temperature 97.7 [degF] DO Felicita Liz Work Phone: [facility] 02-15-2023 09:15-0400 Body weight 76.1 kg DO Felicita Liz Work Phone: [facility] 02-15-2023 09:15-0400 Diastolic blood pressure 92 mm[Hg] DO Felicita Liz Work Phone: [facility] 02-15-2023 09:15-0400 Heart rate 64 /min DO Felicita Liz Work Phone: [facility] 02-15-2023 09:15-0400 Respiratory rate 18 /min DO Felicita Liz Work Phone: [facility] 02-15-2023 09:15-0400 SaO2% (BldA) [Mass fraction] 96 % DO Felicita Liz Work Phone: [facility] 02-15-2023 09:15-0400 Systolic blood pressure 155 mm[Hg] DO Felicita Liz Work Phone: [facility] 02-04-2023 11:14-0400 Body mass index (BMI) [Ratio] 35.1 kg/m2 DO Felicita Liz Work Phone: [facility] 02-04-2023 11:14-0400 Body temperature 98.3 [degF] DO Felicita Liz Work Phone: [facility] 02-04-2023 11:14-0400 Body weight 73.59 kg DO Felicita Liz Work Phone: [facility] 02-04-2023 11:14-0400 Diastolic blood pressure 80 mm[Hg] DO Felicita Liz Work Phone: [facility] 02-04-2023 11:14-0400 Heart rate 66 /min DO Felicita Liz Work Phone: [facility] 02-04-2023 11:14-0400 Respiratory rate 16 /min DO Felicita Liz Work Phone: [facility] 02-04-2023 11:14-0400 SaO2% (BldA) [Mass fraction] 96 % DO Felicita Liz Work Phone: [facility] 02-04-2023 11:14-0400 Systolic blood pressure 132 mm[Hg] DO Felicita Liz Work Phone: [facility] 01-08-2023 04:34-0400 Diastolic blood pressure 67 mm[Hg] DO Felicita Liz Work Phone: [facility] 01-08-2023 04:34-0400 Heart rate 75 /min DO Felicita Liz Work Phone: [facility] 01-08-2023 04:34-0400 Respiratory rate 18 /min DO Felicita Liz Work Phone: [facility] 01-08-2023 04:34-0400 SaO2% (BldA) [Mass fraction] 98 % DO Felicita Liz Work Phone: [facility] 01-08-2023 04:34-0400 Systolic blood pressure 140 mm[Hg] DO Felicita Liz Work Phone: [facility] 01-08-2023 01:25-0400 Body mass index (BMI) [Ratio] 35.9 kg/m2 DO Felicita Liz Work Phone: [facility] 01-08-2023 01:25-0400 Body temperature 97.9 [degF] DO Felicitasharon Hawkisnnger Work Phone: [facility] 01-08-2023 01:25-0400 Body weight 75.2 kg DO Felicita Hill Work Phone: [facility] 10-13-2022 09:44-0400 Body height 144.[address] Richie Bal Work Phone: [facility] 10-13-2022 09:41-0400 Body mass index (BMI) [Ratio] 38.1 kg/m2 Dr. Richie Bal Work Phone: [facility] 10-13-2022 09:41-0400 Body weight 79.[address] Richie Bal Work Phone: [facility] 10-13-2022 09:41-0400 Diastolic blood pressure 78 mm[Hg] Dr. Richie Bal Work Phone: [facility] 10-13-2022 09:41-0400 Heart rate 70 /min Dr. Richie Bal Work Phone: [facility] 10-13-2022 09:41-0400 Respiratory rate 18 /min Dr. Richie Bal Work Phone: [facility] 10-13-2022 09:41-0400 SaO2% (BldA) [Mass fraction] 95 % Dr. Richie Bal Work Phone: [facility] 10-13-2022 09:41-0400 Systolic blood pressure 119 mm[Hg] Dr. Richie Bal Work Phone: [facility] 10-08-2022 11:19-0500 Body mass index (BMI) [Ratio] 37 kg/m2 Dr. Richie Bal Work Phone: [facility] 10-08-2022 11:19-0500 Body temperature 98.2 [degF] Dr. Richie Bal Work Phone: [facility] 10-08-2022 11:19-0500 Body weight 77.[address] Richie Bal Work Phone: [facility] 10-08-2022 11:19-0500 Diastolic blood pressure 74 mm[Hg] Dr. Richie Bal Work Phone: [facility] 10-08-2022 11:19-0500 Heart rate 72 /min Dr. Richie Bal Work Phone: [facility] 10-08-2022 11:19-0500 Respiratory rate 16 /min Dr. Richie Bal Work Phone: [facility] 10-08-2022 11:19-0500 SaO2% (BldA) [Mass fraction] 94 % Dr. Richie Bal Work Phone: [facility] 10-08-2022 11:19-0500 Systolic blood pressure 116 mm[Hg] Dr. Richie Bal Work Phone: [facility] 09-23-2022 14:58-0500 Diastolic blood pressure 84 mm[Hg] Dr. Richie Bal Work Phone: [facility] 09-23-2022 14:58-0500 Systolic blood pressure 156 mm[Hg] Dr. Richie Bal Work Phone: [facility] 09-23-2022 14:53-0500 Body height 144.[address] Richie Bal Work Phone: [facility] 09-23-2022 14:53-0500 Body mass index (BMI) [Ratio] 37.4 kg/m2 Dr. Richie Bal Work Phone: [facility] 09-23-2022 14:53-0500 Body temperature 96.9 [degF] Dr. Richie Bal Work Phone: [facility] 09-23-2022 14:53-0500 Body weight 78.[address] Richie Bal Work Phone: [facility] 09-23-2022 14:53-0500 Heart rate 75 /min Dr. Richie Bal Work Phone: [facility] 09-23-2022 14:53-0500 Respiratory rate 20 /min Dr. Richie Bal Work Phone: [facility] 09-23-2022 14:53-0500 SaO2% (BldA) [Mass fraction] 94 % Dr. Richie Bal Work Phone: [facility] 07-15-2022 10:21-0500 Body height 144.[address] Richie Bal Work Phone: [facility] 07-15-2022 10:21-0500 Body mass index (BMI) [Ratio] 38.7 kg/m2 Dr. Richie Bal Work Phone: [facility] 07-15-2022 10:21-0500 Body temperature 97.6 [degF] Dr. Richie Bal Work Phone: [facility] 07-15-2022 10:21-0500 Body weight 81.[address] Richie Bal Work Phone: [facility] 07-15-2022 10:21-0500 Diastolic blood pressure 74 mm[Hg] Dr. Richie Bal Work Phone: [facility] 07-15-2022 10:21-0500 Heart rate 75 /min Dr. Richie Bal Work Phone: [facility] 07-15-2022 10:21-0500 Respiratory rate 16 /min Dr. Richie Bal Work Phone: [facility] 07-15-2022 10:21-0500 SaO2% (BldA) [Mass fraction] 95 % Dr. Richie Bal Work Phone: [facility] 07-15-2022 10:21-0500 Systolic blood pressure 106 mm[Hg] Dr. Richie Bal Work Phone: [facility] 06-09-2022 14:12-0500 Body mass index (BMI) [Ratio] 39.2 kg/m2 Dr. Richie Bal Work Phone: [facility] 06-09-2022 14:12-0500 Body temperature 97.3 [degF] Dr. Richie Bal Work Phone: [facility] 06-09-2022 14:12-0500 Body weight 82.[address] Richie Bal Work Phone: [facility] 06-09-2022 14:12-0500 Diastolic blood pressure 84 mm[Hg] Dr. Richie Bal Work Phone: [facility] 06-09-2022 14:12-0500 Heart rate 80 /min Dr. Richie Bal Work Phone: [facility] 06-09-2022 14:12-0500 Respiratory rate 18 /min Dr. Richie Bal Work Phone: [facility] 06-09-2022 14:12-0500 SaO2% (BldA) [Mass fraction] 94 % Dr. Richie Bal Work Phone: [facility] 06-09-2022 14:12-0500 Systolic blood pressure 144 mm[Hg] Dr. Richie Bal Work Phone: [facility] 05-14-2022 11:12-0400 Body height 144.[address] Richie Bal Work Phone: [facility] Work Phone: 05-14-2022 11:12-0400 Body mass index (BMI) [Ratio] 39.4 kg/m2 Dr. Richie Bal Work Phone: [facility] 05-14-2022 11:12-0400 Body temperature 95.6 [degF] Dr. Richie Bal Work Phone: [facility] 05-14-2022 11:12-0400 Body weight 82.[address] Richie Bal Work Phone: [facility] 05-14-2022 11:12-0400 Diastolic blood pressure 87 mm[Hg] Dr. Richie Bal Work Phone: [facility] 05-14-2022 11:12-0400 Heart rate 93 /min Dr. Richie Bal Work Phone: [facility] 05-14-2022 11:12-0400 Respiratory rate 16 /min Dr. Richie Bal Work Phone: [facility] 05-14-2022 11:12-0400 SaO2% (BldA) [Mass fraction] 69 % Dr. Richie Bal Work Phone: [facility] 05-14-2022 11:12-0400 Systolic blood pressure 143 mm[Hg] Dr. Richie Bal Work Phone: [facility] 04-30-2022 13:07-0400 Body mass index (BMI) [Ratio] 38.9 kg/m2 Dr. Richie Bal Work Phone: [facility] 04-30-2022 13:07-0400 Body weight 81.[address] Richie Bal Work Phone: [facility] 04-30-2022 13:07-0400 Diastolic blood pressure 76 mm[Hg] Dr. Richie Bal Work Phone: [facility] 04-30-2022 13:07-0400 Heart rate 69 /min Dr. Richie Bal Work Phone: [facility] 04-30-2022 13:07-0400 Respiratory rate 16 /min Dr. Richie Bal Work Phone: [facility] 04-30-2022 13:07-0400 Systolic blood pressure 133 mm[Hg] Dr. Richie Bal Work Phone: [facility] 04-15-2022 10:01-0400 Body height 144.[address] Richie Bal Work Phone: [facility] Work Phone: 04-15-2022 10:01-0400 Body mass index (BMI) [Ratio] 38.5 kg/m2 Dr. Richie Bal Work Phone: [facility] Work Phone: 04-15-2022 10:01-0400 Body temperature 97 [degF] Dr. Richie Bal Work Phone: [facility] Work Phone: 04-15-2022 10:01-0400 Body weight 80.[address] Richie Bal Work Phone: [facility] Work Phone: 04-15-2022 10:01-0400 Diastolic blood pressure 98 mm[Hg] Dr. Richie Bal Work Phone: [facility] Work Phone: 04-15-2022 10:01-0400 Heart rate 67 /min Dr. Richie Bal Work Phone: [facility] Work Phone: 04-15-2022 10:01-0400 Respiratory rate 16 /min Dr. Richie Bal Work Phone: [facility] Work Phone: 04-15-2022 10:01-0400 SaO2% (BldA) [Mass fraction] 96 % Dr. Richie Bal Work Phone: [facility] Work Phone: 04-15-2022 10:01-0400 Systolic blood pressure 138 mm[Hg] Dr. Richie Bal Work Phone: [facility] Work Phone: 02-17-2022 14:00-0400 Body mass index (BMI) [Ratio] 38.8 kg/m2 Dr. Richie Bal Work Phone: [facility] Work Phone: 02-17-2022 14:00-0400 Body temperature 97.5 [degF] Dr. Richie Bal Work Phone: [facility] Work Phone: 02-17-2022 14:00-0400 Body weight 81.[address] Richie Bal Work Phone: [facility] Work Phone: 02-17-2022 14:00-0400 Diastolic blood pressure 79 mm[Hg] Dr. Richie Bal Work Phone: [facility] Work Phone: 02-17-2022 14:00-0400 Heart rate 77 /min Dr. Richie Bal Work Phone: [facility] Work Phone: 02-17-2022 14:00-0400 Respiratory rate 15 /min Dr. Richie Bal Work Phone: [facility] Work Phone: 02-17-2022 14:00-0400 SaO2% (BldA) [Mass fraction] 96 % Dr. Richie Bal Work Phone: [facility] Work Phone: 02-17-2022 14:00-0400 Systolic blood pressure 150 mm[Hg] Dr. Richie Bal Work Phone: [facility] Work Phone: 02-16-2022 13:40-0400 Body mass index (BMI) [Ratio] 38.8 kg/m2 Dr. Richie Bal Work Phone: [facility] Work Phone: 02-16-2022 13:40-0400 Body temperature 96.3 [degF] Dr. Richie Bal Work Phone: [facility] Work Phone: 02-16-2022 13:40-0400 Body weight 81.[address] Richie Bal Work Phone: [facility] Work Phone: 02-16-2022 13:40-0400 Diastolic blood pressure 82 mm[Hg] Dr. Richie Bal Work Phone: [facility] Work Phone: 02-16-2022 13:40-0400 Heart rate 72 /min Dr. Richie Bal Work Phone: [facility] Work Phone: 02-16-2022 13:40-0400 Respiratory rate 18 /min Dr. Richie Bal Work Phone: [facility] Work Phone: 02-16-2022 13:40-0400 SaO2% (BldA) [Mass fraction] 95 % Dr. Richie Bal Work Phone: [facility] Work Phone: 02-16-2022 13:40-0400 Systolic blood pressure 120 mm[Hg] Dr. Richie Bal Work Phone: [facility] Work Phone: 01-14-2022 13:02-0400 Body mass index (BMI) [Ratio] 37.6 kg/m2 Dr. Richie Bal Work Phone: [facility] Work Phone: 01-14-2022 13:02-0400 Body temperature 97.1 [degF] Dr. Richie Bal Work Phone: [facility] Work Phone: 01-14-2022 13:02-0400 Body weight 78.[address] Richie Bal Work Phone: [facility] Work Phone: 01-14-2022 13:02-0400 Diastolic blood pressure 84 mm[Hg] Dr. Richie Bal Work Phone: [facility] Work Phone: 01-14-2022 13:02-0400 Heart rate 68 /min Dr. Richie Bal Work Phone: [facility] Work Phone: 01-14-2022 13:02-0400 Respiratory rate 16 /min Dr. Richie Bal Work Phone: [facility] Work Phone: 01-14-2022 13:02-0400 SaO2% (BldA) [Mass fraction] 97 % Dr. Richie Bal Work Phone: [facility] Work Phone: 01-14-2022 13:02-0400 Systolic blood pressure 136 mm[Hg] Dr. Richie Bal Work Phone: [facility] Work Phone: 11-24-2021 09:01-0400 Body height 144.[address] Richie Bal Work Phone: [facility] Work Phone: 11-24-2021 09:01-0400 Body mass index (BMI) [Ratio] 37.2 kg/m2 Dr. Richie Bal Work Phone: [facility] Work Phone: 11-24-2021 09:01-0400 Body temperature 96.5 [degF] Dr. Richie Bal Work Phone: [facility] Work Phone: 11-24-2021 09:01-0400 Body weight 78.[address] Richie Bal Work Phone: [facility] Work Phone: 11-24-2021 09:01-0400 Diastolic blood pressure 80 mm[Hg] Dr. Richie Bal Work Phone: [facility] Work Phone: 11-24-2021 09:01-0400 Heart rate 68 /min Dr. Richie Bal Work Phone: [facility] Work Phone: 11-24-2021 09:01-0400 Respiratory rate 18 /min Dr. Richie Bal Work Phone: [facility] Work Phone: 11-24-2021 09:01-0400 SaO2% (BldA) [Mass fraction] 95 % Dr. Richie Bal Work Phone: [facility] Work Phone: 11-24-2021 09:01-0400 Systolic blood pressure 128 mm[Hg] Dr. Richie Bal Work Phone: [facility] Work Phone: 11-10-2021 11:09-0400 Body height 144.[address] Richie Bal Work Phone: [facility] Work Phone: 11-10-2021 11:09-0400 Body mass index (BMI) [Ratio] 38.1 kg/m2 Dr. Richie Bal Work Phone: [facility] Work Phone: 11-10-2021 11:09-0400 Body temperature 95.4 [degF] Dr. Richie Bal Work Phone: [facility] Work Phone: 11-10-2021 11:09-0400 Body weight 79.[address] Richie Bal Work Phone: [facility] Work Phone: 11-10-2021 11:09-0400 Diastolic blood pressure 86 mm[Hg] Dr. Richie Bal Work Phone: [facility] Work Phone: 11-10-2021 11:09-0400 Heart rate 61 /min Dr. Richie Bal Work Phone: [facility] Work Phone: 11-10-2021 11:09-0400 Respiratory rate 16 /min Dr. Richie Bal Work Phone: [facility] Work Phone: 11-10-2021 11:09-0400 SaO2% (BldA) [Mass fraction] 98 % Dr. Richie Bal Work Phone: [facility] Work Phone: 11-10-2021 11:09-0400 Systolic blood pressure 130 mm[Hg] Dr. Richie Bal Work Phone: [facility] Work Phone: 10-30-2021 08:36-0400 Body weight 78.[address] Richie Bal Work Phone: [facility] Work Phone: 10-30-2021 08:36-0400 Diastolic blood pressure 68 mm[Hg] Dr. Richie Bal Work Phone: [facility] Work Phone: 10-30-2021 08:36-0400 Heart rate 70 /min Dr. Richie Bal Work Phone: [facility] Work Phone: 10-30-2021 08:36-0400 Respiratory rate 16 /min Dr. Richie Bal Work Phone: [facility] Work Phone: 10-30-2021 08:36-0400 SaO2% (BldA) [Mass fraction] 97 % Dr. Richie Bal Work Phone: [facility] Work Phone: 10-30-2021 08:36-0400 Systolic blood pressure 132 mm[Hg] Dr. Richie Bal Work Phone: [facility] Work Phone: 08-19-2021 13:40-0500 Body mass index (BMI) [Ratio] 36.4 kg/m2 Dr. Richie Bal Work Phone: [facility] Work Phone: 08-19-2021 13:40-0500 Body temperature 98.3 [degF] Dr. Richie Bal Work Phone: [facility] Work Phone: 08-19-2021 13:40-0500 Body weight 76.[address] Richie Bal Work Phone: [facility] Work Phone: 08-19-2021 13:40-0500 Diastolic blood pressure 69 mm[Hg] Dr. Richie Bal Work Phone: [facility] Work Phone: 08-19-2021 13:40-0500 Heart rate 72 /min Dr. Richie Bal Work Phone: [facility] Work Phone: 08-19-2021 13:40-0500 Respiratory rate 16 /min Dr. Richie Bal Work Phone: [facility] Work Phone: 08-19-2021 13:40-0500 SaO2% (BldA) [Mass fraction] 96 % Dr. Richie Bal Work Phone: [facility] Work Phone: 08-19-2021 13:40-0500 Systolic blood pressure 107 mm[Hg] Dr. Richie Bal Work Phone: [facility] Work Phone: 08-14-2021 21:25-0500 Diastolic blood pressure 73 mm[Hg] Dr. Richie Bal Work Phone: [facility] Work Phone: 08-14-2021 21:25-0500 Heart rate 66 /min Dr. Richie Bal Work Phone: [facility] Work Phone: 08-14-2021 21:25-0500 Respiratory rate 20 /min Dr. Richie Bal Work Phone: [facility] Work Phone: 08-14-2021 21:25-0500 SaO2% (BldA) [Mass fraction] 97 % Dr. Richie Bal Work Phone: [facility] Work Phone: 08-14-2021 21:25-0500 Systolic blood pressure 126 mm[Hg] Dr. Richie Bal Work Phone: [facility] Work Phone: 08-14-2021 16:20-0500 Body mass index (BMI) [Ratio] 38 kg/m2 Dr. Richie Bal Work Phone: [facility] Work Phone: 08-14-2021 16:20-0500 Body temperature 97.7 [degF] Dr. Richie Bal Work Phone: [facility] Work Phone: 08-14-2021 16:20-0500 Body weight 79.[address] Richie Bal Work Phone: [facility] Work Phone: 08-07-2021 14:53-0500 Body mass index (BMI) [Ratio] 35.9 kg/m2 Dr. Richie Bal Work Phone: [facility] Work Phone: 08-07-2021 14:53-0500 Body temperature 98.3 [degF] Dr. Richie Bal Work Phone: [facility] Work Phone: 08-07-2021 14:53-0500 Body weight 75.[address] Richie Bal Work Phone: [facility] Work Phone: 08-07-2021 14:53-0500 Diastolic blood pressure 90 mm[Hg] Dr. Richie Bal Work Phone: [facility] Work Phone: 08-07-2021 14:53-0500 Heart rate 74 /min Dr. Richie Bal Work Phone: [facility] Work Phone: 08-07-2021 14:53-0500 Respiratory rate 18 /min Dr. Richie Bal Work Phone: [facility] Work Phone: 08-07-2021 14:53-0500 SaO2% (BldA) [Mass fraction] 97 % Dr. Richie Bal Work Phone: [facility] Work Phone: 08-07-2021 14:53-0500 Systolic blood pressure 150 mm[Hg] Dr. Richie Bal Work Phone: [facility] Work Phone: 08-07-2021 14:28-0500 Body mass index (BMI) [Ratio] 35.9 kg/m2 Dr. Richie Bal Work Phone: [facility] Work Phone: 08-07-2021 14:28-0500 Body temperature 98.3 [degF] Dr. Richie Bal Work Phone: [facility] Work Phone: 08-07-2021 14:28-0500 Body weight 75.[address] Richie Bal Work Phone: [facility] Work Phone: 08-07-2021 14:28-0500 Diastolic blood pressure 100 mm[Hg] Dr. Richie Bal Work Phone: [facility] Work Phone: 08-07-2021 14:28-0500 Heart rate 80 /min Dr. Richie Bal Work Phone: [facility] Work Phone: 08-07-2021 14:28-0500 Respiratory rate 16 /min Dr. Richie Bal Work Phone: [facility] Work Phone: 08-07-2021 14:28-0500 SaO2% (BldA) [Mass fraction] 99 % Dr. Richie Bal Work Phone: [facility] Work Phone: 08-07-2021 14:28-0500 Systolic blood pressure 172 mm[Hg] Dr. Richie Bal Work Phone: [facility] Work Phone: 11-25-2020 13:48-0400 Body mass index (BMI) [Ratio] 32.8 kg/m2 Dr. Richie Bal Work Phone: [facility] Work Phone: 06-12-2020 12:52-0500 Body mass index (BMI) [Ratio] 31.5 kg/m2 Dr. Richie Bal Work Phone: [facility] 06-12-2020 12:52-0500 Body temperature 97.3 [degF] Dr. Richie Bal Work Phone: [facility] 06-12-2020 12:52-0500 Body weight 74.[address] Richie Bal Work Phone: [facility] 06-12-2020 12:52-0500 Diastolic blood pressure 76 mm[Hg] Dr. Richie Bal Work Phone: [facility] 06-12-2020 12:52-0500 Heart rate 74 /min Dr. Richie Bal Work Phone: [facility] 06-12-2020 12:52-0500 Respiratory rate 16 /min Dr. Richie Bal Work Phone: [facility] 06-12-2020 12:52-0500 SaO2% (BldA) [Mass fraction] 98 % Dr. Richie Bal Work Phone: [facility] 06-12-2020 12:52-0500 Systolic blood pressure 119 mm[Hg] Dr. Richie Bal Work Phone: [facility] 06-12-2020 11:52-0500 Body mass index (BMI) [Ratio] 31.5 kg/m2 Dr. Richie Bal Work Phone: [facility] Work Phone: 06-12-2020 11:52-0500 Body temperature 97.3 [degF] Dr. Richie Bal Work Phone: [facility] Work Phone: 06-12-2020 11:52-0500 Body weight 74.[address] Richie Bal Work Phone: [facility] Work Phone: 06-12-2020 11:52-0500 Diastolic blood pressure 76 mm[Hg] Dr. Richie Bal Work Phone: [facility] Work Phone: 06-12-2020 11:52-0500 Heart rate 74 /min Dr. Richie Bal Work Phone: [facility] Work Phone: 06-12-2020 11:52-0500 Respiratory rate 16 /min Dr. Richie Bal Work Phone: [facility] Work Phone: 06-12-2020 11:52-0500 SaO2% (BldA) [Mass fraction] 98 % Dr. Richie Bal Work Phone: [facility] Work Phone: 06-12-2020 11:52-0500 Systolic blood pressure 119 mm[Hg] Dr. Richie Bal Work Phone: [facility] Work Phone: Encounters Encounter Date Encounter Type Care Provider Facility Start: 09-26-2024 End: 09-26-2024 ambulatory Chalon Charlee Facility:[facility] Start: 09-21-2024 End: 09-21-2024 ambulatory Chalon Charlee Facility:[facility] Start: 06-27-2024 ambulatory Chalon Charlee [facility] Start: 06-15-2024 ambulatory Chalon Charlee [facility] Start: 06-14-2024 ambulatory Chalon Charlee [facility] Start: 06-14-2024 ambulatory Oskar Olsen [facility] Start: 06-14-2024 End: 06-14-2024 ambulatory Chalon Charlee Facility:[facility] Start: 06-01-2024 ambulatory Chalon Charlee Facility:[facility] Start: 05-31-2024 ambulatory Chalon Charlee [facility] Start: 05-29-2024 End: 05-29-2024 ambulatory RICHIE HARTE Facility:[facility] Start: 05-29-2024 End: 05-29-2024 Patient encounter procedure Doris Tobin MD Work Phone: General Surgery Comment on above: Chest wall pain (Trish margi Dx); History of left breast cancer; Family history of breast cancer Start: 05-25-2024 End: 05-25-2024 ambulatory Chalon Charlee Facility:[facility] Start: 04-13-2024 End: 04-13-2024 ambulatory Chalon Charlee Facility:[facility] Start: 04-11-2024 End: 04-11-2024 ambulatory Imani Gilda DIRECTOR OF GUIDANCE Facility:[facility] Start: 04-06-2024 End: 04-06-2024 ambulatory Imani Gilda DIRECTOR OF GUIDANCE Facility:[facility] Start: 03-20-2024 End: 03-20-2024 ambulatory Chalon Charlee Facility:[facility] Start: 01-28-2024 End: 01-28-2024 ambulatory Efraín Friend Facility:[facility] Start: 01-07-2024 End: 01-07-2024 ambulatory Efraín Friend Facility:[facility] Start: 12-14-2023 End: 12-14-2023 ambulatory Efraín Friend Facility:[facility] Start: 11-04-2023 End: 11-04-2023 Emergency department patient visit DO Felicita Hill Work Phone: [facility]-Emergency Department Work Phone: Start: 10-26-2023 ambulatory Felicita Hill Facili ty:[facility] Start: 09-14-2023 End: 09-14-2023 Patient encounter procedure DO Felicita Liz Work Phone: [facility] Work Phone: Start: 06-22-2023 End: 06-22-2023 Patient encounter procedure DO Felicita Nevarezer Work Phone: [facility] Gastroenterology Work Phone: Start: 05-27-2023 End: 05-27-2023 Patient encounter procedure DO Felicita Nevarezer Work Phone: [facility] Work Phone: Start: 05-26-2023 End: 05-26-2023 ambulatory DO Felicita Hill Work Phone: [facility] Work Phone: Start: 05-26-2023 End: 05-26-2023 Patient encounter procedure DO Felicita Nevarezer Work Phone: [facility]-Outpatient Breast Imaging Work Phone: Start: 05-25-2023 End: 05-25-2023 ambulatory DO Felicita Nevarezer Work Phone: [facility] Work Phone: Start: 05-25-2023 End: 05-25-2023 Discharged Recurring DO Felicita Nevarezer Work Phone: [facility]-Occupational Therapy Work Phone: Start: 05-25-2023 Registered Recurring DO Minal Hill Work Phone: [facility]-Occupational Therapy Work Phone: Start: 05-19-2023 End: 05-19-2023 ambulatory DO Felicita Nevarezer Work Phone: [facility] Work Phone: Start: 05-19-2023 End: 05-19-2023 Patient encounter procedure DO Felicita Hill Work Phone: [facility] Start: 05-19-2023 End: 05-19-2023 Patient encounter procedure DO Felicita Nevarezer Work Phone: [facility]opaedic [facility] Work Phone: Start: 05-12-2023 Non-patient / Non-visit DO Felicita Nevarezer Work Phone: [facility] Work Phone: Start: 05-12-2023 Non-patient / Non-visit DO Felicita Hawkinsnger Work Phone: [facility] Start: 05-11-2023 Non-patient / Non-visit DO Felicita Nevarezer Work Phone: [facility] Start: 05-11-2023 End: 05-12-2023 Evaluation and management of inpatient DO Felicita Nevarezer Work Phone: [facility]-Medical Surgical 3 Work Phone: Start: 05-11-2023 End: 05-12-2023 observation encounter DO Felicita Hill Work Phone: [facility] Work Phone: Start: 05-07-2023 End: 05-07-2023 Patient encounter procedure DO Felicita Nevarezer Work Phone: [facility] Endocrinology Work Phone: Start: 04-22-2023 Registered Recurring DO Minal n Liz Work Phone: [facility]-Occupational Therapy Work Phone: Start: 04-07-2023 End: 04-07-2023 Patient encounter procedure DO Felicita Hawkinsnger Work Phone: [facility] Work Phone: Start: 03-24-2023 End: 03-24-2023 Patient encounter procedure DO Felicita Hawkinsnger Work Phone: [facility] Work Phone: Start: 03-23-2023 End: 03-23-2023 Patient encounter procedure DO Felicita Hill Work Phone: [facility] Work Phone: Start: 03-10-2023 End: 03-10-2023 Patient encounter procedure DO Felicita Hill Work Phone: [facility] Work Phone: Start: 02-23-2023 Non-patient / Non-visit DO Felicita Hill Work Phone: [facility] Start: 02-23-2023 End: 02-23-2023 Admission to same day surgery center DO Felicita Hill Work Phone: [facility]-Surgical Day Care Start: 02-19-2023 End: 02-19-2023 Patient encounter procedure DO Felicita Hill Work Phone: [facility] Radiology Start: 02-19-2023 End: 02-19-2023 Patient encounter procedure DO Felicita Hill Work Phone: [facility] Work Phone: Start: 02-16-2023 End: 02-16-2023 ambulatory DO Felicita Hill Work Phone: [facility] Work Phone: Start: 02-16-2023 End: 02-16-2023 Patient encounter procedure DO Felicita Hill Work Phone: [facility]-Laboratory, Specimen Work Phone: Start: 02-15-2023 End: 02-15-2023 Emergency department patient visit DO Felicita Nevarezer Work Phone: [facility]-Emergency Department Work Phone: Start: 02-04-2023 End: 02-04-2023 Patient encounter procedure DO Felicita Liz Work Phone: [facility] Endocrinology Work Phone: Start: 01-08-2023 End: 01-08-2023 Emergency department patient [facility] Start: 01-05-2023 End: 01-05-2023 Patient encounter procedure DO Felicita Hill Work Phone: [facility] Endocrinology Work Phone: Start: 10-13-2022 End: 10-13-[address] Richie Bal Work Phone: [facility] Work Phone: Start: 10-13-2022 End: 10-13-[address] Richie Bal Work Phone: [facility] Start: 10-08-2022 End: 10-08-[address] Richie Bal Work Phone: [facility] Endocrinology Start: 10-01-2022 End: 10-01-[address] Richie Bal Work Phone: [facility] Start: 09-23-2022 End: 09-23-[address] Richie Bal Work Phone: [facility] Start: 09-23-[address] Lou Bal Work Phone: [facility] Oncology Start: 09-23-2022 End: 09-23-[address] Richie Bal Work Phone: [facility] Work Phone: Start: 09-23-2022 End: 09-23-[address] Richie Bal Work Phone: [facility] Start: 08-13-2022 End: 08-13-[address] Richie Bal Work Phone: [facility] Work Phone: Start: 08-13-2022 End: 08-13-[address] Richie Bal Work Phone: [facility] Endocrinology Start: 07-15-2022 End: 07-15-[address] Richie Bal Work Phone: [facility] Internal Medicine Start: 06-09-2022 End: 06-09-[address] [facility] Start: 05-20-2022 End: 05-20-[address] Richie Bal Work Phone: [facility] Work Phone: Start: 05-20-2022 End: 05-20-[address] Richie Bal Work Phone: [facility]-Sleep Lab Start: 05-14-2022 End: 05-14-[address] Richie Bal Work Phone: [facility] Endocrinology Start: 05-12-2022 Non-patient / Non-visit Dr. Richie Bal Work Phone: [facility] Start: 05-12-2022 End: 05-12-[address] Richie Bal Work Phone: [facility] Work Phone: Start: 05-12-2022 End: 05-12-[address] Richie Bal Work Phone: [facility]-Cardiovascular Services Start: 04-30-2022 End: 04-30-[address] Richie Bal Work Phone: [facility] Start: 04-22-2022 End: 04-22-[address] Richie Bal Work Phone: [facility] Start: 04-15-2022 End: 04-15-[address] Richie Bal Work Phone: [facility] Internal Medicine Start: 02-17-2022 End: 02-17-[address] Richie Farmer Phone: [facility] Start: 02-16-2022 End: 02-16-[address] Richie Farmer Phone: [facility] Endocrinology Start: 01-14-2022 End: 01-14-[address] Richie Farmer Phone: [facility] Internal Medicine Start: 11-24-2021 End: 11-24-[address] Richie Farmer Phone: [facility] Endocrinology Start: 11-19-2021 End: 11-19-[address] Richie Bal Work Phone: [facility]-Radiology, [facility] Start: 11-10-2021 End: 11-10-[address] Richie Bal Work Phone: [facility] Internal Medicine Start: 11-05-2021 End: 11-05-[address] Richie Farmer Phone: [facility]-Outpatient Bone Densitometry Start: 10-30-2021 End: 10-30-[address] Richie Bal Work Phone: [facility] Start: 08-26-[address] Lou Bal Work Phone: [facility] Medical Oncology Start: 08-19-2021 End: 08-19-[address] Richie Bal Work Phone: [facility] Start: 08-14-2021 End: 08-14-2021 Emergency department patient visit Dr. Richie Bal Work Phone: [facility]-Emergency Department Start: 08-07-2021 End: 08-07-[address] Richie Bal Work Phone: [facility] Endocrinology Start: 03-16-2017 End: 03-17-2017 Ambulatory [facility] Procedures Date Procedure Procedure Detail Performing Clinician Start: 11-04-2023 SARS-CoV-2, Influenza & RSV (PCR) DO Felicita Hill Work Phone: Start: 11-04-2023 Computed tomography of abdomen and pelvis with intravenous contrast DO Felicita Liz Work Phone: Start: 11-04-2023 Plain chest X-ray DO Felicitasharon Hawkinsnger Work Phone: Start: 05-26-2023 Screening mammography DO Felicita Hawkinsnger Work Phone: Start: 05-19-2023 Plain x-ray of wrist DO Felicita Hawkinsnger Work Phone: Start: 05-12-2023 Colonoscopy DO Felicita Hawkinsnger Work Phone: Start: 05-11-2023 Computed tomography of abdomen and pelvis with intravenous contrast DO Felicita Hill Work Phone: Start: 05-11-2023 Measurement of occult blood in stool specimen using immunoassay DO Felicitasharon Hawkinsnger Work Phone: Start: 04-07-2023 Plain x-ray of wrist DO Felicita Hawkinsnger Work Phone: Start: 03-24-2023 Plain x-ray of wrist DO Felicitasharon Hawkinsnger Work Phone: Start: 03-10-2023 Plain x-ray of elbow DO Felicita Hawkinsnger Work Phone: Start: 03-10-2023 Plain x-ray of wrist DO Felicitasharon Hawkinsnger Work Phone: Start: 02-23-2023 Fluoroscopic guidance DO Felicita Hawkinsnger Work Phone: Start: 02-23-2023 Plain x-ray of wrist DO Felicita Hawkinsnger Work Phone: Start: 02-19-2023 Plain x-ray of wrist DO Felicita Hawkinsnger Work Phone: Start: 02-16-2023 Urine culture DO Felicita Hawkinsnger Work Phone: Start: 02-15-2023 Plain x-ray of wrist DO Felicita Hawkinsnger Work Phone: Start: 02-15-2023 Plain x-ray of wrist DO Felicita Hawkinsnger Work Phone: Start: 01-08-2023 Plain chest X-ray DO Felicita Hawkinsnger Work Phone: Start: 05-12-2022 Cardiovascular stress test using pharmacologic stress agent Dr. Richie Bal Work Phone: Start: 04-22-2022 Plain x-ray of hand Dr. Richie Bal Work Phone: Start: 02-17-2022 X-ray of rib Dr. Richie Bal Work Phone: Start: 11-19-2021 Plain x-ray of pelvis and lower extremity Dr. Richie Bal Work Phone: Start: 11-19-2021 End: 11-19-2021 Radiologic examination of knee Dr. Richie Bal Work Phone: Start: 11-05-2021 Dual energy X-ray absorptiometry Dr. Richie Bal Work Phone: Start: 11-05-[address] Richie vo Work Phone: Start: 08-14-2021 Plain chest X-ray Dr. Richie Bal Work Phone: Start: 10-10-2018 History of placement of stent for coronary artery disease History of coronary artery stent placement Dr. Richie Bal Work Phone: Plan of Treatment Date Care Activity Detail Author Start: 05-29-2025 BP Controlled (<130/80) BP Controlled (<130/80) [facility] Start: 2024 Advance Directive Discussion Advance Directive Discussion [facility] Start: 2024 Covid-19 Vaccine () Covid-19 Vaccine () [facility] Start: 2024 Screening for osteoporosis Bone Density Screening [facility] Start: 11-04-2023 [facility] Start: 05-19-2023 Patient referral [facility] Work Phone: Start: 05-12-2023 Patient discharge [facility] Start: 05-12-2023 Application of intermittent pneumatic compression device [facility] Start: 05-11-2023 Following clinical pathway protocol [facility] Start: 05-11-2023 Assessment of risk of venous thromboembolism [facility] Start: 05-11-2023 Care regimes management [facility] Start: 05-11-2023 Inhalation therapy procedure [facility] Start: 05-11-2023 Insertion of catheter into peripheral vein [facility] Start: 05-11-2023 Notification of physician [facility] Start: 05-11-2023 Oxygen therapy [facility] Start: 05-11-2023 Providing care according to standard [facility] Start: 05-11-2023 Provision of activity privileges [facility] Start: 05-11-2023 Referral to gastroenterology service [facility] Start: 05-11-2023 Referral to service [facility] Start: 05-11-2023 [facility] Start: 05-11-2023 Admission procedure [facility] Start: 05-11-2023 Colonoscopy w/biopsy single/multiple COLONOSCOPY AND BIOPSY [facility] Start: 02-23-2023 Patient discharge [facility] Start: 02-23-2023 Application of ice collar, cap or bag [facility] Start: 02-23-2023 Catheterization of vein [facility] Start: 02-23-2023 Elevation of affected extremity [facility] Start: 02-23-2023 Following clinical pathway protocol [facility] Start: 02-23-2023 Procedure discontinued [facility] Start: 02-23-2023 Taking patient vital signs [facility] Start: 02-23-2023 Vital signs measurements [facility] Start: 02-23-2023 [facility] Start: 02-23-2023 Anes radius ulna wrist/hand bones closed px ANESTH LOWER ARM PROCEDURE [facility] Start: 02-23-2023 Cltx dstl rdl fx/epiphysl sep w/manj when perf TREAT FRACTURE RADIUS/ULNA [facility] Start: 02-23-2023 Medication education [facility] Start: 02-15-2023 Application short arm splint forearm-hand static APPLY FOREARM SPLINT [facility] Start: 02-15-2023 Closed tx distal radioulnar dislocation w/manj TREAT WRIST DISLOCATION [facility] Start: 01-08-2023 [facility] Start: 07-15-2022 Patient referral [facility] Work Phone: Start: 04-15-2022 Patient referral [facility] Work Phone: Start: 01-14-2022 Patient referral [facility] Work Phone: Start: 10-06-2019 Screening for malignant neoplasm of breast Mammogram Screening [facility] Start: 09-28-2019 Hepatitis B surface antibody level LDL Cholesterol [facility] Start: 04-22-2019 Glaucoma screening Dilated Retinal Exam [facility] Start: 04-07-2019 Hepatitis B screening Urine Albumin:Creatinine Ratio [facility] Start: 2019 RSV Vaccine (1 - Risk 60-74 years 1-dose series) RSV Vaccine (1 - Risk 60-74 years 1-dose series) [facility] Start: 03-23-2019 Hemoglobin A1c measurement HbA1C [facility] Start: 01-09-2019 Screening for malignant neoplasm of colon [facility] Start: 01-07-2019 Diabetic foot examination Diabetic Foot Exam [facility] Start: 2009 Shingrix Vaccine (1 of 2) Shingrix Vaccine (1 of 2) [facility] Start: 2004 Screening for malignant neoplasm of colon [facility] Start: 1978 Urine microalbumin profile DTaP,Tdap,Td Vaccine (1 - Tdap) [facility] Start: 1977 Annual PCP Team Chronic Disease Visit Annual PCP Team Chronic Disease Visit [facility] Start: 1977 Anxiety Screening Anxiety Screening [facility] Start: 1977 HIV screening HIV Screening [facility] Start: 1977 Spirometry Spirometry [facility] CBC W Auto Different ial panel - Blood [facility] Work Phone: Hemoglobin A1c/Hemoglobin.total in Blood [facility] Lipid 1996 panel - S briana or Plasma [facility] Work Phone: Lipid 1996 panel - S briana or Plasma [facility] MG Breast - bilatera l Screening [facility] Patient Education [facility] Work Phone: Patient referral [facility] Work Phone: Polysomnography [facility] Work Phone: [facility] Immunizations Immunization Date Immunization Notes Care Provider Fa amanda 05-06-2022 influenza, injectabl e, quadrivalent, preservative free DO Felicita Hill Work Phone: [facility] 05-06-2022 influenza, seasonal, injectable Dr. Richie Bal Work Phone: [facility] 11-13-2020 Covid (Pfizer) Dr. Richie Bal Work Phone: [facility] 05-17-2019 influenza, seasonal, injectable Doris Tobin MD Work Phone: [facility] 06-09-2010 pneumococcal polysaccharide vaccine, 23 hemant Tobin MD Work Phone: [facility] Payers Date Payer Category Payer Medicare [employer] MEDICARE HU[employer] GOLD PLUS [id number] 2024-Present [phone] [address] [address] [place] [address] O [id number] 2023 Self-pay [id number] 2011 Medicare [id number] Unknown [id number] Unknown [id number] Unknown [id number] Unknown [id number] Unknown [id number] Unknown [id number] [id number] Unknown [id number] Unknown [id number] [id number] Unknown [id number] Unknown [id number] Unknown [id number] [id number] Unknown [id number] [id number] Unknown [id number] [id number] Unknown [id number] [id number] Unknown [id number] [id number] Unknown [id number] [id number] Unknown [id number] [id number] Unknown [id number] [id number] Unknown [id number] [id number] Unknown [id number] Social History Date Type Detail Facility Start: 11-10-2021 End: 11-04-2023 Tobacco smoking status WAIS Unknown if ever smoked [facility] Start: 05-09-2020 None [facility] Start: 11-28-2020 Homeless [facility] Start: 12-04-2020 Non-smoker [facility] Start: 1960 Sex Assigned At Female W [facility] Start: 03-16-2017 Tobacco smoking stat us WAIS Never smoked tobacco [facility] Start: 03-16-2017 Tobacco use and exposure Smokeless tobacco non-user [facility] Start: 05-29-2024 Alcoholic beverage intake Current non-drinker of alcohol (finding) [facility] Start: 05-20-2018 End: 05-29-2024 History of Social function [facility] Start: 05-20-2018 End: 05-29-2024 Tobacco use panel [facility] Adult Depression Screening Assessment 0 [facility] Start: 1960 Sex assigned at Not on file [facility] NEGATED: Highlighted row [facility] Medical Equipment Procedure Code Equipment Code Equipment Origin al Text Equipment Identifier Dates SUTURE,LIGA CLIP SM LT-100 FDA Start: 12-05-2018 Blood Sugar Diagnostic (Accu-Chek Gwendolyn Plus Test Strp) strip Start: 06-04-2021 Insulin Syringe-Needle U-100 (Bd Insulin Syringe Ultra-Fine) 0.3 mL 31 gauge x 5/16 syringe Start: 11-11-2020 Insulin Syringe-Needle U-100 (Bd Insulin Syringe Ultra-Fine) 0.5 mL 31 gauge x 5/16 syringe Start: 04-11-2020 Blood Sugar Diagnostic (Accu-Chek Gwendolyn Plus Test Strp) strip Start: 03-27-2021 End: 06-04-2021 Blood Sugar Diagnostic (Accu-Chek Gwendolyn Plus Test Strp) strip Start: 01-20-2021 End: 01-20-2021 Blood Sugar Diagnostic (Accu-Chek Gwendolyn Plus Test Strp) strip Start: 01-20-2021 End: 03-27-2021 Blood Sugar Diagnostic (Onetouch Verio Test Strips) strip Start: 07-03-2020 End: 01-20-2021 SUTURE,LIGA CLIP LT-100 FDA Start: 12-05-2018 Blood Sugar Diagnostic (Accu-Chek Gwendolyn Plus Test Strp) strip Start: 11-24-2021 Blood Sugar Diagnostic (Accu-Chek Gwendolyn Plus Test Strp) strip Start: 06-04-2021 Insulin Syringe-Needle U-100 (Bd Insulin Syringe Ultra-Fine) 0.3 mL 31 gauge x 5/16 syringe Start: 11-24-2021 Blood Sugar Diagnostic (Accu-Chek Gwendolyn Plus Test Strp) strip Start: 03-27-2021 End: 06-04-2021 Blood Sugar Diagnostic (Accu-Chek Gwendolyn Plus Test Strp) strip Start: 01-20-2021 End: 01-20-2021 Blood Sugar Diagnostic (Accu-Chek Gwendolyn Plus Test Strp) strip Start: 01-20-2021 End: 03-27-2021 Blood Sugar Diagnostic (Onetouch Verio Test Strips) strip Start: 07-03-2020 End: 01-20-2021 Insulin Syringe-Needle U-100 (Bd Insulin Syringe Ultra-Fine) 0.3 mL 31 gauge x 5/16 syringe Start: 11-11-2020 End: 04-25-2022 Insulin Syringe-Needle U-100 (Bd Insulin Syringe Ultra-Fine) 0.5 mL 31 gauge x 5/16 syringe Start: 04-11-2020 End: 11-24-2021 SUTURE,LIGA CLIP SM LT-100 FDA Start: 12-05-2018 Blood Sugar Diagnostic (Accu-Chek Gwnedolyn Plus Test Strp) strip Start: 01-14-2022 Blood Sugar Diagnostic (Accu-Chek Gwendolyn Plus Test Strp) strip Start: 04-15-2022 Blood Sugar Diagnostic (Accu-Chek Gwendolyn Plus Test Strp) strip Start: 02-04-2022 Insulin Syringe-Needle U-100 (Bd Insulin Syringe Ultra-Fine) 0.3 mL 31 gauge x 5/16 syringe Start: 11-24-2021 Blood Sugar Diagnostic (Accu-Chek Gwendolyn Plus Test Strp) strip Start: 03-27-2021 End: 06-04-2021 Blood Sugar Diagnostic (Accu-Chek Gwendolyn Plus Test Strp) strip Start: 11-24-2021 End: 02-04-2022 Blood Sugar Diagnostic (Accu-Chek Gwendolyn Plus Test Strp) strip Start: 02-16-2022 End: 04-15-2022 Blood Sugar Diagnostic (Accu-Chek Gwendolyn Plus Test Strp) strip Start: 01-20-2021 End: 01-20-2021 Blood Sugar Diagnostic (Accu-Chek Gwendolyn Plus Test Strp) strip Start: 01-20-2021 End: 03-27-2021 Blood Sugar Diagnostic (Accu-Chek Gwendolyn Plus Test Strp) strip Start: 06-04-2021 End: 01-14-2022 Blood Sugar Diagnostic (Onetouch Verio Test Strips) strip Start: 07-03-2020 End: 01-20-2021 Insulin Syringe-Needle U-100 (Bd Insulin Syringe Ultra-Fine) 0.3 mL 31 gauge x 5/16 syringe Start: 11-11-2020 End: 11-24-2021 Insulin Syringe-Needle U-100 (Bd Insulin Syringe Ultra-Fine) 0.5 mL 31 gauge x 5/16 syringe Start: 04-11-2020 End: 11-24-2021 SUTURE,LIGA CLIP SM LT-100 FDA Start: 12-05-2018 Blood Sugar Diagnostic (Accu-Chek Gwendolyn Plus Test Strp) strip Start: 01-14-2022 Blood Sugar Diagnostic (Accu-Chek Gwendolyn Plus Test Strp) strip Start: 04-15-2022 Blood Sugar Diagnostic (Accu-Chek Gwendolyn Plus Test Strp) strip Start: 02-04-2022 Insulin Syringe-Needle U-100 (Bd Insulin Syringe Ultra-Fine) 0.3 mL 31 gauge x 5/16 syringe Start: 11-24-2021 Blood Sugar Diagnostic (Accu-Chek Gwendolyn Plus Test Strp) strip Start: 03-27-2021 End: 06-04-2021 Blood Sugar Diagnostic (Accu-Chek Gwendolyn Plus Test Strp) strip Start: 11-24-2021 End: 02-04-2022 Blood Sugar Diagnostic (Accu-Chek Gwendolyn Plus Test Strp) strip Start: 02-16-2022 End: 04-15-2022 Blood Sugar Diagnostic (Accu-Chek Gwendolyn Plus Test Strp) strip Start: 01-20-2021 End: 01-20-2021 Blood Sugar Diagnostic (Accu-Chek Gwendolyn Plus Test Strp) strip Start: 01-20-2021 End: 03-27-2021 Blood Sugar Diagnostic (Accu-Chek Gwendolyn Plus Test Strp) strip Start: 06-04-2021 End: 01-14-2022 Blood Sugar Diagnostic (Onetouch Verio Test Strips) strip Start: 07-03-2020 End: 01-20-2021 Insulin Syringe-Needle U-100 (Bd Insulin Syringe Ultra-Fine) 0.3 mL 31 gauge x 5/16 syringe Start: 11-11-2020 End: 11-24-2021 Insulin Syringe-Needle U-100 (Bd Insulin Syringe Ultra-Fine) 0.5 mL 31 gauge x 5/16 syringe Start: 04-11-2020 End: 11-24-2021 SUTURE,LIGA CLIP SM LT-100 FDA Start: 12-05-2018 Blood Sugar Diagnostic (Accu-Chek Gwendolyn Plus Test Strp) strip Start: 01-14-2022 Blood Sugar Diagnostic (Accu-Chek Gwendolyn Plus Test Strp) strip Start: 04-15-2022 Blood Sugar Diagnostic (Accu-Chek Gwendolyn Plus Test Strp) strip Start: 02-04-2022 Insulin Syringe-Needle U-100 (Bd Insulin Syringe Ultra-Fine) 0.3 mL 31 gauge x 5/16 syringe Start: 11-24-2021 Blood Sugar Diagnostic (Accu-Chek Gwendolyn Plus Test Strp) strip Start: 03-27-2021 End: 06-04-2021 Blood Sugar Diagnostic (Accu-Chek Gwendolyn Plus Test Strp) strip Start: 11-24-2021 End: 02-04-2022 Blood Sugar Diagnostic (Accu-Chek Gwendolyn Plus Test Strp) strip Start: 02-16-2022 End: 04-15-2022 Blood Sugar Diagnostic (Accu-Chek Gwendolyn Plus Test Strp) strip Start: 01-20-2021 End: 01-20-2021 Blood Sugar Diagnostic (Accu-Chek Gwendolyn Plus Test Strp) strip Start: 01-20-2021 End: 03-27-2021 Blood Sugar Diagnostic (Accu-Chek Gwendolyn Plus Test Strp) strip Start: 06-04-2021 End: 01-14-2022 Blood Sugar Diagnostic (Onetouch Verio Test Strips) strip Start: 07-03-2020 End: 01-20-2021 Insulin Syringe-Needle U-100 (Bd Insulin Syringe Ultra-Fine) 0.3 mL 31 gauge x 5/16 syringe Start: 11-11-2020 End: 11-24-2021 Insulin Syringe-Needle U-100 (Bd Insulin Syringe Ultra-Fine) 0.5 mL 31 gauge x 5/16 syringe Start: 04-11-2020 End: 11-24-2021 SUTURE,LIGA CLIP SM LT-100 FDA Start: 12-05-2018 Blood Sugar Diagnostic (Accu-Chek Gwendolyn Plus Test Strp) strip Start: 01-14-2022 Blood Sugar Diagnostic (Accu-Chek Gwendolyn Plus Test Strp) strip Start: 02-04-2022 Blood Sugar Diagnostic (Accu-Chek Gwendolyn Plus Test Strp) strip Start: 06-19-2022 Insulin Syringe-Needle U-100 (Bd Insulin Syringe Ultra-Fine) 0.3 mL 31 gauge x 5/16 syringe Start: 11-24-2021 Blood Sugar Diagnostic (Accu-Chek Gwendolyn Plus Test Strp) strip Start: 03-27-2021 End: 06-04-2021 Blood Sugar Diagnostic (Accu-Chek Gwendolyn Plus Test Strp) strip Start: 11-24-2021 End: 02-04-2022 Blood Sugar Diagnostic (Accu-Chek Gwendolyn Plus Test Strp) strip Start: 02-16-2022 End: 04-15-2022 Blood Sugar Diagnostic (Accu-Chek Gwendolyn Plus Test Strp) strip Start: 04-15-2022 End: 06-19-2022 Blood Sugar Diagnostic (Accu-Chek Gwendolyn Plus Test Strp) strip Start: 01-20-2021 End: 01-20-2021 Blood Sugar Diagnostic (Accu-Chek Gwendolyn Plus Test Strp) strip Start: 01-20-2021 End: 03-27-2021 Blood Sugar Diagnostic (Accu-Chek Gwendolyn Plus Test Strp) strip Start: 06-04-2021 End: 01-14-2022 Blood Sugar Diagnostic (Onetouch Verio Test Strips) strip Start: 07-03-2020 End: 01-20-2021 Insulin Syringe-Needle U-100 (Bd Insulin Syringe Ultra-Fine) 0.3 mL 31 gauge x 5/16 syringe Start: 11-11-2020 End: 11-24-2021 Insulin Syringe-Needle U-100 (Bd Insulin Syringe Ultra-Fine) 0.5 mL 31 gauge x 5/16 syringe Start: 04-11-2020 End: 11-24-2021 SUTURE,LIGA CLIP SM LT-[address] [facility] Start: 12-05-2018 Blood Sugar Diagnostic (Accu-Chek Gwendolyn Plus Test Strp) strip Start: 09-03-2022 Insulin Syringe-Needle U-100 (Bd Insulin Syringe Ultra-Fine) 0.3 mL 31 gauge x 5/16 syringe Start: 11-24-2021 Lancets (Comfort Ez Lancets) 28 gauge misc Start: 09-03-2022 Blood Sugar Diagnostic (Accu-Chek Gwendolyn Plus Test Strp) strip Start: 03-27-2021 End: 06-04-2021 Blood Sugar Diagnostic (Accu-Chek Gwendolyn Plus Test Strp) strip Start: 11-24-2021 End: 02-04-2022 Blood Sugar Diagnostic (Accu-Chek Gwendolyn Plus Test Strp) strip Start: 02-16-2022 End: 04-15-2022 Blood Sugar Diagnostic (Accu-Chek Gwendolyn Plus Test Strp) strip Start: 01-14-2022 End: 09-03-2022 Blood Sugar Diagnostic (Accu-Chek Gwendolyn Plus Test Strp) strip Start: 04-15-2022 End: 06-19-2022 Blood Sugar Diagnostic (Accu-Chek Gwendolyn Plus Test Strp) strip Start: 01-20-2021 End: 01-20-2021 Blood Sugar Diagnostic (Accu-Chek Gwendolyn Plus Test Strp) strip Start: 01-20-2021 End: 03-27-2021 Blood Sugar Diagnostic (Accu-Chek Gwendolyn Plus Test Strp) strip Start: 06-04-2021 End: 01-14-2022 Blood Sugar Diagnostic (Accu-Chek Gwendolyn Plus Test Strp) strip Start: 02-04-2022 End: 09-03-2022 Blood Sugar Diagnostic (Accu-Chek Gwendolyn Plus Test Strp) strip Start: 06-19-2022 End: 09-03-2022 Blood Sugar Diagnostic (Onetouch Verio Test Strips) strip Start: 07-03-2020 End: 01-20-2021 Insulin Syringe-Needle U-100 (Bd Insulin Syringe Ultra-Fine) 0.3 mL 31 gauge x 5/16 syringe Start: 11-11-2020 End: 11-24-2021 Insulin Syringe-Needle U-100 (Bd Insulin Syringe Ultra-Fine) 0.5 mL 31 gauge x 5/16 syringe Start: 04-11-2020 End: 11-24-2021 SUTURE,LIGA CLIP LT-[address] [facility] Start: 12-05-2018 Blood Sugar Diagnostic (Accu-Chek Gwendolyn Plus Test Strp) strip Start: 09-03-2022 Insulin Syringe-Needle U-100 (Bd Insulin Syringe Ultra-Fine) 0.3 mL 31 gauge x 5/16 syringe Start: 11-24-2021 Lancets (Comfort Ez Lancets) 28 gauge misc Start: 09-03-2022 Blood Sugar Diagnostic (Accu-Chek Gwendolyn Plus Test Strp) strip Start: 03-27-2021 End: 06-04-2021 Blood Sugar Diagnostic (Accu-Chek Gwendolyn Plus Test Strp) strip Start: 11-24-2021 End: 02-04-2022 Blood Sugar Diagnostic (Accu-Chek Gwendolyn Plus Test Strp) strip Start: 02-16-2022 End: 04-15-2022 Blood Sugar Diagnostic (Accu-Chek Gwendolyn Plus Test Strp) strip Start: 01-14-2022 End: 09-03-2022 Blood Sugar Diagnostic (Accu-Chek Gwendolyn Plus Test Strp) strip Start: 04-15-2022 End: 06-19-2022 Blood Sugar Diagnostic (Accu-Chek Gwendolyn Plus Test Strp) strip Start: 01-20-2021 End: 01-20-2021 Blood Sugar Diagnostic (Accu-Chek Gwendolyn Plus Test Strp) strip Start: 01-20-2021 End: 03-27-2021 Blood Sugar Diagnostic (Accu-Chek Gwendolyn Plus Test Strp) strip Start: 06-04-2021 End: 01-14-2022 Blood Sugar Diagnostic (Accu-Chek Gwendolyn Plus Test Strp) strip Start: 02-04-2022 End: 09-03-2022 Blood Sugar Diagnostic (Accu-Chek Gwendolyn Plus Test Strp) strip Start: 06-19-2022 End: 09-03-2022 Blood Sugar Diagnostic (Onetouch Verio Test Strips) strip Start: 07-03-2020 End: 01-20-2021 Insulin Syringe-Needle U-100 (Bd Insulin Syringe Ultra-Fine) 0.3 mL 31 gauge x 5/16 syringe Start: 11-11-2020 End: 11-24-2021 Insulin Syringe-Needle U-100 (Bd Insulin Syringe Ultra-Fine) 0.5 mL 31 gauge x 5/16 syringe Start: 04-11-2020 End: 11-24-2021 SUTURE,LIGA CLIP SM LT-100 FDA Start: 12-05-2018 Blood Sugar Diagnostic (Accu-Chek Guide Test Strips) strip Start: 02-04-2023 Insulin Syringe-Needle U-100 (Bd Insulin Syringe Ultra-Fine) 0.3 mL 31 gauge x 5/16 syringe Start: 11-24-2021 Lancets (Comfort Ez Lancets) 28 gauge misc Start: 09-03-2022 Blood Sugar Diagnostic (Accu-Chek Gwendolyn Plus Test Strp) strip Start: 03-27-2021 End: 06-04-2021 Blood Sugar Diagnostic (Accu-Chek Gwendolyn Plus Test Strp) strip Start: 11-24-2021 End: 02-04-2022 Blood Sugar Diagnostic (Accu-Chek Gwendolyn Plus Test Strp) strip Start: 02-16-2022 End: 04-15-2022 Blood Sugar Diagnostic (Accu-Chek Gwendolyn Plus Test Strp) strip Start: 01-14-2022 End: 09-03-2022 Blood Sugar Diagnostic (Accu-Chek Gwendolyn Plus Test Strp) strip Start: 04-15-2022 End: 06-19-2022 Blood Sugar Diagnostic (Accu-Chek Gwendolyn Plus Test Strp) strip Start: 01-20-2021 End: 01-20-2021 Blood Sugar Diagnostic (Accu-Chek Gwendolyn Plus Test Strp) strip Start: 01-20-2021 End: 03-27-2021 Blood Sugar Diagnostic (Accu-Chek Gwendolyn Plus Test Strp) strip Start: 06-04-2021 End: 01-14-2022 Blood Sugar Diagnostic (Accu-Chek Gwendolyn Plus Test Strp) strip Start: 02-04-2022 End: 09-03-2022 Blood Sugar Diagnostic (Accu-Chek Gwendolyn Plus Test Strp) strip Start: 06-19-2022 End: 09-03-2022 Blood Sugar Diagnostic (Accu-Chek Gwendolyn Plus Test Strp) strip Start: 09-03-2022 End: 02-04-2023 Blood Sugar Diagnostic (Onetouch Verio Test Strips) strip Start: 07-03-2020 End: 01-20-2021 Insulin Syringe-Needle U-100 (Bd Insulin Syringe Ultra-Fine) 0.3 mL 31 gauge x 5/16 syringe Start: 11-11-2020 End: 11-24-2021 Insulin Syringe-Needle U-100 (Bd Insulin Syringe Ultra-Fine) 0.5 mL 31 gauge x 5/16 syringe Start: 04-11-2020 End: 11-24-2021 SUTURE,LIGA CLIP SM LT-100 FDA Start: 12-05-2018 Blood Sugar Diagnostic (Accu-Chek Guide Test Strips) strip Start: 02-04-2023 Insulin Syringe-Needle U-100 (Bd Insulin Syringe Ultra-Fine) 0.3 mL 31 gauge x 5/16 syringe Start: 11-24-2021 Lancets (Comfort Ez Lancets) 28 gauge misc Start: 09-03-2022 Blood Sugar Diagnostic (Accu-Chek Gwendolyn Plus Test Strp) strip Start: 03-27-2021 End: 06-04-2021 Blood Sugar Diagnostic (Accu-Chek Gwendolyn Plus Test Strp) strip Start: 11-24-2021 End: 02-04-2022 Blood Sugar Diagnostic (Accu-Chek Gwendolyn Plus Test Strp) strip Start: 02-16-2022 End: 04-15-2022 Blood Sugar Diagnostic (Accu-Chek Gwendolyn Plus Test Strp) strip Start: 01-14-2022 End: 09-03-2022 Blood Sugar Diagnostic (Accu-Chek Gwendolyn Plus Test Strp) strip Start: 04-15-2022 End: 06-19-2022 Blood Sugar Diagnostic (Accu-Chek Gwendolyn Plus Test Strp) strip Start: 01-20-2021 End: 01-20-2021 Blood Sugar Diagnostic (Accu-Chek Gwendolyn Plus Test Strp) strip Start: 01-20-2021 End: 03-27-2021 Blood Sugar Diagnostic (Accu-Chek Gwendolyn Plus Test Strp) strip Start: 06-04-2021 End: 01-14-2022 Blood Sugar Diagnostic (Accu-Chek Gwendolyn Plus Test Strp) strip Start: 02-04-2022 End: 09-03-2022 Blood Sugar Diagnostic (Accu-Chek Gwendolyn Plus Test Strp) strip Start: 06-19-2022 End: 09-03-2022 Blood Sugar Diagnostic (Accu-Chek Gwendolyn Plus Test Strp) strip Start: 09-03-2022 End: 02-04-2023 Blood Sugar Diagnostic (Onetouch Verio Test Strips) strip Start: 07-03-2020 End: 01-20-2021 Insulin Syringe-Needle U-100 (Bd Insulin Syringe Ultra-Fine) 0.3 mL 31 gauge x 5/16 syringe Start: 11-11-2020 End: 11-24-2021 Insulin Syringe-Needle U-100 (Bd Insulin Syringe Ultra-Fine) 0.5 mL 31 gauge x 5/16 syringe Start: 04-11-2020 End: 11-24-2021 SUTURE,LIGA CLIP SM LT-100 FDA Start: 12-05-2018 Blood Sugar Diagnostic (Accu-Chek Guide Test Strips) strip Start: 03-15-2023 Insulin Syringe-Needle U-100 (Bd Insulin Syringe Ultra-Fine) 0.3 mL 31 gauge x 5/16 syringe Start: 11-24-2021 Insulin Syringe-Needle U-100 (Bd Insulin Syringe Ultra-Fine) 0.3 mL 31 gauge x 5/16 syringe Start: 05-07-2023 Lancets (Comfort Ez Lancets) 28 gauge misc Start: 09-03-2022 Blood Sugar Diagnostic (Accu-Chek Gwendolyn Plus Test Strp) strip Start: 03-27-2021 End: 06-04-2021 Blood Sugar Diagnostic (Accu-Chek Gwendolyn Plus Test Strp) strip Start: 11-24-2021 End: 02-04-2022 Blood Sugar Diagnostic (Accu-Chek Gwendolyn Plus Test Strp) strip Start: 02-16-2022 End: 04-15-2022 Blood Sugar Diagnostic (Accu-Chek Gwendolyn Plus Test Strp) strip Start: 01-14-2022 End: 09-03-2022 Blood Sugar Diagnostic (Accu-Chek Gwendolyn Plus Test Strp) strip Start: 04-15-2022 End: 06-19-2022 Blood Sugar Diagnostic (Accu-Chek Gwendolyn Plus Test Strp) strip Start: 01-20-2021 End: 01-20-2021 Blood Sugar Diagnostic (Accu-Chek Gwendolyn Plus Test Strp) strip Start: 01-20-2021 End: 03-27-2021 Blood Sugar Diagnostic (Accu-Chek Gwendolyn Plus Test Strp) strip Start: 06-04-2021 End: 01-14-2022 Blood Sugar Diagnostic (Accu-Chek Gwendolyn Plus Test Strp) strip Start: 02-04-2022 End: 09-03-2022 Blood Sugar Diagnostic (Accu-Chek Gwendolyn Plus Test Strp) strip Start: 06-19-2022 End: 09-03-2022 Blood Sugar Diagnostic (Accu-Chek Gwendolyn Plus Test Strp) strip Start: 09-03-2022 End: 02-04-2023 Blood Sugar Diagnostic (Accu-Chek Guide Test Strips) strip Start: 02-04-2023 End: 03-15-2023 Blood Sugar Diagnostic (Onetouch Verio Test Strips) strip Start: 07-03-2020 End: 01-20-2021 Insulin Syringe-Needle U-100 (Bd Insulin Syringe Ultra-Fine) 0.3 mL 31 gauge x 5/16 syringe Start: 11-11-2020 End: 11-24-2021 Insulin Syringe-Needle U-100 (Bd Insulin Syringe Ultra-Fine) 0.5 mL 31 gauge x 5/16 syringe Start: 04-11-2020 End: 11-24-2021 SUTURE,LIGA CLIP SM LT-100 FDA Start: 12-05-2018 Blood Sugar Diagnostic (Accu-Chek Guide Test Strips) strip Start: 03-15-2023 Insulin Syringe-Needle U-100 (Bd Insulin Syringe Ultra-Fine) 0.3 mL 31 gauge x 5/16 syringe Start: 11-24-2021 Insulin Syringe-Needle U-100 (Bd Insulin Syringe Ultra-Fine) 0.3 mL 31 gauge x 5/16 syringe Start: 05-07-2023 Lancets (Comfort Ez Lancets) 28 gauge misc Start: 09-03-2022 Blood Sugar Diagnostic (Accu-Chek Gwendolyn Plus Test Strp) strip Start: 03-27-2021 End: 06-04-2021 Blood Sugar Diagnostic (Accu-Chek Gwendolyn Plus Test Strp) strip Start: 11-24-2021 End: 02-04-2022 Blood Sugar Diagnostic (Accu-Chek Gwendolyn Plus Test Strp) strip Start: 02-16-2022 End: 04-15-2022 Blood Sugar Diagnostic (Accu-Chek Gwendolyn Plus Test Strp) strip Start: 01-14-2022 End: 09-03-2022 Blood Sugar Diagnostic (Accu-Chek Gwendolyn Plus Test Strp) strip Start: 04-15-2022 End: 06-19-2022 Blood Sugar Diagnostic (Accu-Chek Gwendolyn Plus Test Strp) strip Start: 01-20-2021 End: 01-20-2021 Blood Sugar Diagnostic (Accu-Chek Gwendolyn Plus Test Strp) strip Start: 01-20-2021 End: 03-27-2021 Blood Sugar Diagnostic (Accu-Chek Gwendolyn Plus Test Strp) strip Start: 06-04-2021 End: 01-14-2022 Blood Sugar Diagnostic (Accu-Chek Gwendolyn Plus Test Strp) strip Start: 02-04-2022 End: 09-03-2022 Blood Sugar Diagnostic (Accu-Chek Gwendolyn Plus Test Strp) strip Start: 06-19-2022 End: 09-03-2022 Blood Sugar Diagnostic (Accu-Chek Gwendolyn Plus Test Strp) strip Start: 09-03-2022 End: 02-04-2023 Blood Sugar Diagnostic (Accu-Chek Guide Test Strips) strip Start: 02-04-2023 End: 03-15-2023 Blood Sugar Diagnostic (Onetouch Verio Test Strips) strip Start: 07-03-2020 End: 01-20-2021 Insulin Syringe-Needle U-100 (Bd Insulin Syringe Ultra-Fine) 0.3 mL 31 gauge x 5/16 syringe Start: 11-11-2020 End: 11-24-2021 Insulin Syringe-Needle U-100 (Bd Insulin Syringe Ultra-Fine) 0.5 mL 31 gauge x 5/16 syringe Start: 04-11-2020 End: 11-24-2021 SUTURE,LIGA CLIP SM LT-[address] [facility] Start: 12-05-2018 Blood Sugar Diagnostic (Accu-Chek Guide Test Strips) strip Start: 03-15-2023 Insulin Syringe-Needle U-100 (Bd Insulin Syringe Ultra-Fine) 0.3 mL 31 gauge x 5/16 syringe Start: 11-24-2021 Insulin Syringe-Needle U-100 (Bd Insulin Syringe Ultra-Fine) 0.3 mL 31 gauge x 5/16 syringe Start: 05-07-2023 Lancets (Comfort Ez Lancets) 28 gauge misc Start: 09-03-2022 Blood Sugar Diagnostic (Accu-Chek Gwendolyn Plus Test Strp) strip Start: 03-27-2021 End: 06-04-2021 Blood Sugar Diagnostic (Accu-Chek Gwendolyn Plus Test Strp) strip Start: 11-24-2021 End: 02-04-2022 Blood Sugar Diagnostic (Accu-Chek Gwendolyn Plus Test Strp) strip Start: 02-16-2022 End: 04-15-2022 Blood Sugar Diagnostic (Accu-Chek Gwendolyn Plus Test Strp) strip Start: 01-14-2022 End: 09-03-2022 Blood Sugar Diagnostic (Accu-Chek Gwendolyn Plus Test Strp) strip Start: 04-15-2022 End: 06-19-2022 Blood Sugar Diagnostic (Accu-Chek Gwendolyn Plus Test Strp) strip Start: 01-20-2021 End: 01-20-2021 Blood Sugar Diagnostic (Accu-Chek Gwendolyn Plus Test Strp) strip Start: 01-20-2021 End: 03-27-2021 Blood Sugar Diagnostic (Accu-Chek Gwendolyn Plus Test Strp) strip Start: 06-04-2021 End: 01-14-2022 Blood Sugar Diagnostic (Accu-Chek Gwendolyn Plus Test Strp) strip Start: 02-04-2022 End: 09-03-2022 Blood Sugar Diagnostic (Accu-Chek Gwendolyn Plus Test Strp) strip Start: 06-19-2022 End: 09-03-2022 Blood Sugar Diagnostic (Accu-Chek Gwendolyn Plus Test Strp) strip Start: 09-03-2022 End: 02-04-2023 Blood Sugar Diagnostic (Accu-Chek Guide Test Strips) strip Start: 02-04-2023 End: 03-15-2023 Blood Sugar Diagnostic (Onetouch Verio Test Strips) strip Start: 07-03-2020 End: 01-20-2021 Insulin Syringe-Needle U-100 (Bd Insulin Syringe Ultra-Fine) 0.3 mL 31 gauge x 5/16 syringe Start: 11-11-2020 End: 11-24-2021 Insulin Syringe-Needle U-100 (Bd Insulin Syringe Ultra-Fine) 0.5 mL 31 gauge x 5/16 syringe Start: 04-11-2020 End: 11-24-2021 SUTURE,LIGA CLIP SM LT-100 FDA Start: 12-05-2018 Blood Sugar Diagnostic (Accu-Chek Guide Test Strips) strip Start: 08-30-2023 Insulin Syringe-Needle U-100 (Bd Insulin Syringe Ultra-Fine) 0.3 mL 31 gauge x 5/16 syringe Start: 11-24-2021 Insulin Syringe-Needle U-100 (Bd Insulin Syringe Ultra-Fine) 0.3 mL 31 gauge x 5/16 syringe Start: 05-07-2023 Lancets (Comfort Ez Lancets) 28 gauge misc Start: 09-03-2022 Blood Sugar Diagnostic (Accu-Chek Gwendolyn Plus Test Strp) strip Start: 03-27-2021 End: 06-04-2021 Blood Sugar Diagnostic (Accu-Chek Gwendolyn Plus Test Strp) strip Start: 11-24-2021 End: 02-04-2022 Blood Sugar Diagnostic (Accu-Chek Gwendolyn Plus Test Strp) strip Start: 02-16-2022 End: 04-15-2022 Blood Sugar Diagnostic (Accu-Chek Gwendolyn Plus Test Strp) strip Start: 01-14-2022 End: 09-03-2022 Blood Sugar Diagnostic (Accu-Chek Gwendolyn Plus Test Strp) strip Start: 04-15-2022 End: 06-19-2022 Blood Sugar Diagnostic (Accu-Chek Gwendolyn Plus Test Strp) strip Start: 01-20-2021 End: 01-20-2021 Blood Sugar Diagnostic (Accu-Chek Gwendolyn Plus Test Strp) strip Start: 01-20-2021 End: 03-27-2021 Blood Sugar Diagnostic (Accu-Chek Gwendolyn Plus Test Strp) strip Start: 06-04-2021 End: 01-14-2022 Blood Sugar Diagnostic (Accu-Chek Gwendolyn Plus Test Strp) strip Start: 02-04-2022 End: 09-03-2022 Blood Sugar Diagnostic (Accu-Chek Gwendolyn Plus Test Strp) strip Start: 06-19-2022 End: 09-03-2022 Blood Sugar Diagnostic (Accu-Chek Gwendolyn Plus Test Strp) strip Start: 09-03-2022 End: 02-04-2023 Blood Sugar Diagnostic (Accu-Chek Guide Test Strips) strip Start: 02-04-2023 End: 03-15-2023 Blood Sugar Diagnostic (Accu-Chek Guide Test Strips) strip Start: 03-15-2023 End: 08-30-2023 Blood Sugar Diagnostic (Onetouch Verio Test Strips) strip Start: 07-03-2020 End: 01-20-2021 Insulin Syringe-Needle U-100 (Bd Insulin Syringe Ultra-Fine) 0.3 mL 31 gauge x 5/16 syringe Start: 11-11-2020 End: 11-24-2021 Insulin Syringe-Needle U-100 (Bd Insulin Syringe Ultra-Fine) 0.5 mL 31 gauge x 5/16 syringe Start: 04-11-2020 End: 11-24-2021 SUTURE,LIGA CLIP SM LT-100 FDA Start: 12-05-2018 Blood Sugar Diagnostic (Accu-Chek Guide Test Strips) strip Start: 08-30-2023 Insulin Syringe-Needle U-100 (Bd Insulin Syringe Ultra-Fine) 0.3 mL 31 gauge x 5/16 syringe Start: 11-24-2021 Insulin Syringe-Needle U-100 (Bd Insulin Syringe Ultra-Fine) 0.3 mL 31 gauge x 5/16 syringe Start: 05-07-2023 Lancets (Comfort Ez Lancets) 28 gauge misc Start: 09-03-2022 Blood Sugar Diagnostic (Accu-Chek Gwendolyn Plus Test Strp) strip Start: 03-27-2021 End: 06-04-2021 Blood Sugar Diagnostic (Accu-Chek Gwendolyn Plus Test Strp) strip Start: 11-24-2021 End: 02-04-2022 Blood Sugar Diagnostic (Accu-Chek Gwendolyn Plus Test Strp) strip Start: 02-16-2022 End: 04-15-2022 Blood Sugar Diagnostic (Accu-Chek Gwendolyn Plus Test Strp) strip Start: 01-14-2022 End: 09-03-2022 Blood Sugar Diagnostic (Accu-Chek Gwendolyn Plus Test Strp) strip Start: 04-15-2022 End: 06-19-2022 Blood Sugar Diagnostic (Accu-Chek Gwendolyn Plus Test Strp) strip Start: 01-20-2021 End: 01-20-2021 Blood Sugar Diagnostic (Accu-Chek Gwendolyn Plus Test Strp) strip Start: 01-20-2021 End: 03-27-2021 Blood Sugar Diagnostic (Accu-Chek Gwendolyn Plus Test Strp) strip Start: 06-04-2021 End: 01-14-2022 Blood Sugar Diagnostic (Accu-Chek Gwendolyn Plus Test Strp) strip Start: 02-04-2022 End: 09-03-2022 Blood Sugar Diagnostic (Accu-Chek Gwendolyn Plus Test Strp) strip Start: 06-19-2022 End: 09-03-2022 Blood Sugar Diagnostic (Accu-Chek Gwendolyn Plus Test Strp) strip Start: 09-03-2022 End: 02-04-2023 Blood Sugar Diagnostic (Accu-Chek Guide Test Strips) strip Start: 02-04-2023 End: 03-15-2023 Blood Sugar Diagnostic (Accu-Chek Guide Test Strips) strip Start: 03-15-2023 End: 08-30-2023 Blood Sugar Diagnostic (Onetouch Verio Test Strips) strip Start: 07-03-2020 End: 01-20-2021 Insulin Syringe-Needle U-100 (Bd Insulin Syringe Ultra-Fine) 0.3 mL 31 gauge x 5/16 syringe Start: 11-11-2020 End: 11-24-2021 Insulin Syringe-Needle U-100 (Bd Insulin Syringe Ultra-Fine) 0.5 mL 31 gauge x 5/16 syringe Start: 04-11-2020 End: 11-24-2021 Test blood sugar (s) 4 times daily. Dx: E11.65. Insulin: Yes [id number] Start: 10-06-2018 Use once daily w nirmal Singh [id number] Start: 05-31-2018 Use as directed to inject insulin four times daily [id number] Start: 11-12-2017 Goals Date Patient Goal Desired Activity /State Functional Status Date Assessment Result Facility 05-12-2023 Functional status Up ad gayla [facility] Work Phone: Mental Status Date Assessment Result Facility 05-12-2023 Cognitive function Voice/Name [facility] Work Phone: 02-23-2023 Cognitive function Voice/Name [facility] Work Phone: 01-08-2023 Cognitive function Voice/Name [facility] Work Phone: 08-14-2021 Cognitive function Awake;Alert;A ppropriate;Fol lows Commands [facility] Work Phone: Clinical Notes 10-10-2018 to 05-29-2024 Doris Tobin MD - 05/29/2024 1:15 PM Felicita Lara RN - 05/29/2024 1:12 PM Felicita Lara RN - 05/29/2024 1:12 PM EDT Note Date & Type Note Facility 05-29-2024 History of Present illness Narrative Angel Reich 1960 REFERRING PHYSICIAN: No ref. provider found CHIEF COMPLAINT: New Patient HPI: The patient is a 64 year old female presents with complaint of left chest pain and breast pain. 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 She has been followed by Dr. Olsen She denies palpable breast masses. Denies nipple discharge. Denies breast pain. Mother had breast cancer diagnosed in her 40s. Sister had bilateral breast cancer diagnosed in her 30s and also ovarian cancer. Another sister had ovarian cancer. Mother's mother and father's mother had breast cancer. Other second degree relatives with breast cancer. No known testing for BRCA in the family. She states that the pain is in her left axilla and extends to her left breast and left chest wall. It has been present for about three weeks. She states that it is a severe ache, with occasional sharp pains. She does have a diagnosis of fibromyalgia. She had breast radiological studies - Left breast mammograms, bilateral diagnostic 04/11/2024; left breast US 04/11/2024 - no abnormalities seen She has poorly controlled diabetes with persistently elevated HgbA1c on insulin. PAST MEDICAL HISTORY Diagnosis Date Asthma CAD (coronary artery disease) 09/2018 70% occlusion of the distal left circumflex, 60% occlusion of the right RCA DCIS (ductal carcinoma in situ) of breast 2018 left Depressive disorder, not elsewhere classified Essential hypertension, benign Family history of malignant neoplasm of breast mother and sisters Fibromyalgia Generalized osteoarthrosis, unspecified site GERD (gastroesophageal reflux disease) Hearing impaired since age 4, reads lips Other and unspecified hyperlipidemia PONV (postoperative nausea and vomiting) 03/16/2017 STEMI (ST elevation myocardial infarction) (HCC) 09/2018 LIZETTE X2 :LAD Type II or unspecified type diabetes mellitus without mention of complication, not stated as uncontrolled PAST SURGICAL HISTORY Procedure Laterality Date ANGIO TRANSCATH STENT PLACEMEN 09/2018 LIZETTE X2 LAD BREAST BIOPSY Left 10/26/2018 BREAST BIOPSY CORE 1999 neg BREAST LUMPECTOMY HX Left 11/2018 CHOLECYSTECTOMY Cholecystectomy LEFT HEART CATH,PERCUTANEOUS 2007, 2004 Cardiac cath, L heart MYRINGOTOMY ASPIR&/EUSTACHIAN TUBE NFLTJ ANES Myringotomy/tubes PAST SURGICAL HISTORY OF corrective eye surgery TOTAL ABDOMINAL HYSTERECT W/WO RMVL TUBE OVARY Hysterectomy, CRIS Current Outpatient Medications Medication Sig insulin aspart U-100 (NOVOLOG) 100 unit/mL Sliding scale insulin glargine (LANTUS) 100 unit/mL injection Inject 20 Units subcutaneously two times a day. busPIRone (BUSPAR) 5 mg tablet Take 1 tablet by mouth twice daily. ranolazine ER (RANEXA) 500 mg 12 hr tablet Take 1 tablet by mouth every 12 hours. carvedilol (COREG) 6.25 mg tablet Take 1 tablet by mouth twice daily. traZODone (DESYREL) 100 mg tablet TAKE TWO TABLETS BY MOUTH ONCE DAILY AT BEDTIME calcium carbonate-vitamin D3 (OSCAL+D) 500 mg(1,250mg) -400 unit chewable tablet Take 1 tablet by mouth twice daily. anastrozole (ARIMIDEX) 1 mg tablet Take 1 tablet by mouth once daily. citalopram (CELEXA) 20 mg tablet Take 1 tablet by mouth once daily. rosuvastatin (CRESTOR) 40 mg tablet Take 1 tablet by mouth once daily. albuterol HFA (VENTOLIN HFA) 90 mcg/actuation inhaler Inhale 2 Puffs as instructed every 4 hours as needed for Wheezing/Shortness of Breath. glucagon (GLUCAGON EMERGENCY KIT, HUMAN,) 1 mg solr Inject 1 mg intramuscularly one time only for 1 dose. lisinopril 2.5 mg tablet Take 1 tablet by mouth once daily. fluticasone-salmeterol (ADVAIR DISKUS) 250-50 mcg/dose dsdv Inhale 1 Puff as instructed twice daily. Rinse and gargle mouth after use with water. acetaminophen (TYLENOL ARTHRITIS PAIN) 650 mg CR tablet Take 1 tablet by mouth every 8 hours as needed. albuterol (PROVENTIL) 2.5 mg /3 mL (0.083 %) nebulizer solution Use 3 mL via nebulizer every 6 hours as needed for Wheezing/Shortness of Breath. Use over 5-15minutes. glucose 4 gram chewable tablet Take 4 tablets by mouth as needed for Low Blood Sugar. aspirin, enteric coated (ASPIR-LOW) 81 mg EC tablet Take 1 tablet by mouth once daily. meclizine (ANTIVERT) 25 mg tab Take 25 mg by mouth every 6 hours as needed. PSYLLIUM SEED, WITH SUGAR, (METAMUCIL ORAL) Take by mouth as needed. polyethylene glycol 3350 (MIRALAX) 17 gram/dose powder Take 17 g by mouth once daily. (Patient taking differently: Take 17 g by mouth as needed.) oxybutynin XL (DITROPAN XL) 5 mg 24 hr tablet Take 5 mg by mouth once daily. (Patient not taking: Reported on 05/29/2024) insulin NPH injection (HumuLIN N,NovoLIN N) Inject 18 units subcutaneously before breakfast and 18 Units before dinner (Patient not taking: Reported on 05/29/2024) insulin regular human (NOVOLIN R REGULAR U-100 INSULN) 100 unit/mL injection Inject 13 Units subcutaneously three times daily before meals. (30 mins prior to meals) (Patient not taking: Reported on 05/29/2024) clopidogrel (PLAVIX) 75 mg tablet Take 1 tablet by mouth once daily. (Patient not taking: Reported on 05/29/2024) isosorbide mononitrate ER (IMDUR) 60 mg 24 hr tablet Take 1 tablet by mouth once daily. (Patient not taking: Reported on 05/29/2024) flash glucose scanning reader (FREESTYLE ABHINAV 14 DAY READER) [facility] Use to test blood sugars with Freestyle Abhinav sensors as directed. flash glucose sensor (FREESTYLE ABHINAV 14 DAY SENSOR) kit Apply sensor to back of arm to check blood sugars as directed. Change sensor every 2 weeks and rotate arms. Blood-Glucose Meter (ACCU-CHEK GWENDOLYN PLUS METER) [facility] Test blood sugar as director ICD-10: E11.65 blood sugar diagnostic (ACCU-CHEK GWENDOLYN PLUS TEST STRP) test strip Test blood sugar(s) 4 times daily. Dx: E11.65. Insulin: Yes nystatin (MYCOSTATIN) cream Apply 1 application to affected area twice daily. (Patient not taking: Reported on 05/29/2024) Insulin [place], Disposable, (PEN NEEDLE) 32 gauge x 5/32 ndle Use once daily with Lantus alcohol swabs (ALCOHOL PREP SWABS) padm Apply 1 application to affected area four times daily. Insulin Syringe-Needle U-100 0.5 mL 31 gauge x 5/16 syrg Use as directed to inject insulin four times daily No current facility-administered medications for this visit. ALLERGIES: Eggs [Other], Fish, Tamoxifen, Codeine, Darvocet A500 [Propoxyphene N-Acetaminophen], Florone [Diflorasone], Glucovance [Glyburide-Metformin], Lisinopril, Macrodantin [Nitrofurantoin Macrocrystalline], Metformin, Morphine, Percocet [Oxycodone-Acetaminophen], Prevacid [Lansoprazole], Sulfa (Sulfonamide Antibiotics), and Vicodin [Hydrocodone-Acetaminophen] PERSONAL HISTORY: Social History Tobacco Use Smoking status: Never Smokeless tobacco: Never Vaping Use Vaping status: Never Used Substance Use Topics Alcohol use: No Drug use: No FAMILY HISTORY Problem Relation Age of Onset Coronary Artery Disease Mother Diabetes Mother Breast Cancer Mother Coronary Artery Disease Father Diabetes Father Hypertension Father Cancer Sister cervical Heart Attack Sister Hypertension Sister Diabetes Sister Diabetes Sister Diabetes Sister Diabetes Sister Coronary Artery Disease Sister Heart Attack Sister Breast Cancer Sister Diabetes Brother Diabetes Brother Coronary Artery Disease Brother Cancer Maternal Aunt breast Cancer Paternal Aunt ovarian The review of systems data was entered by the nurse and reviewed by ky Nursing Notes: Felicita Velasco RN 05/29/2024 1:15 PM Signed REVIEW OF SYSTEMS: General: The patient denies fatigue, denies weight loss, denies weight gain, denies feeling hot, and denies feelings of cold. Eyes: The patient denies glaucoma, denies eye injury/surgery, wears glasses or contacts. Ear/Nose/Throat: The patient denies allergies, denies hayfever, denies ear infections, and denies bloody noses. Cardiovascular: The patient denies chest pain, NOTES heart disease, NOTES high blood pressure,NOTES cardiac stent, NOTES prior heart attack, denies irregular heart beat, denies high cholesterol, denies poor circulation, denies heart failure, other cardiac issues, denies claudication, denies cold feet, denies peripheral arterial stent., NOTES leg pain Respiratory: The patient denies tuberculosis, denies pneumonia, denies frequent cough, denies pulmonary embolism, denies shortness of breath, and denies coughing up blood. Gastrointestinal: The patient denies difficulty swallowing, denies acid reflux, denies ulcers, denies vomiting, denies jaundice/hepatitis, denies gallbladder problems, denies black or tarry stools, denies hemorrhoids, denies bleeding from rectum, denies diverticulitis, denies constipation, NOTES diarrhea, denies loss of stool control, and denies hernias. Kidney/Bladder: The patient denies kidney stones, denies urine infections, and denies bloody urine. Skin: The patient denies a history of skin cancer, denies bleeding/changing moles, and denies a history of skin rash. Neurologic: The patient denies a history of epilepsy/convulsions, denies headaches, denies head/spinal injuries, and denies stroke/TIA. Psychiatric: The patient denies psychiatric medications, NOTES depression, and denies voices, denies substance abuse. Endocrine: The patient denies thyroid disorders, NOTES diabetes, and denies hormonal problems. Hematologic: The patient denies a history of bruising, denies bleeding, and denies anemia, denies blood clots. Infections: The patient denies a history of measles and mumps, denies rheumatic fever, and denies sexually transmitted diseases. Musculoskeletal: The patient denies back pain/injury, denies back problems, denies sciatica, denies knee/foot trouble, NOTES arthritis, or denies gout. When was patient's last Mammogram screening? 04/11/24 Last Colonoscopy: 2022 at Layo Velasco RN PHYSICAL EXAMINATION: General: The patient is a 64 year old female, well nourished, well hydrated in no acute distress. The patient is oriented to time, place, and person. VITALS: Blood pressure 108/73, pulse 75, resp. rate 16, height 144.8 cm (4' 9), weight 78.5 kg (173 lb), SpO2 93%. Body mass index is 37.44 kg/m . Head - Normocephalic. EOM intact with sclera clear and no icterus noted. Wearing glasses. Mouth with mucus membranes moist. Neck - supple with no jugular venous distention noted. Trachea is midline. No thyroid enlargement or thyroid nodules detected. No masses noted. Chest/breast - no asymmetry of breasts noted, no suspicious skin lesions noted, no nipple discharge and both nipples everted, no breast masses noted, pain is palpated at underlying chest wall - also on right, minimal breast parenchymal pain Lungs - clear to auscultation. Normal breath sounds. No rales/rhonchi/wheezing noted. No labored breathing noted, such as retractions. No cough heard. Heart - normal S1 and S2 auscultated. No rubs/clicks/murmurs noted. Regular rate. Abdomen - soft and benign. Difficult to determine if any masses or organomegaly due to body habitus. Extremities - no calf tenderness noted. No pitting edema noted. Skin - normal skin integrity. Lymph - no cervical adenopathy detected, no supraclavicular adenopathy detected, no axillary adenopathy detected Neurological - gait normal, no focal deficits noted Psych - calm and appropriate Assessment IMPRESSION: bilateral chest wall pain PLAN: I have discussed the above with the patient. I do not detect any clinical evidence of breast malignancy at this point in time. I have recommended continued observation, patient to follow up with me in 6 months. Patient acknowledges the above. I have answered all questions to the patient s satisfaction and the patient has no further questions. I have confirmed and edited as necessary, the PFSH and ROS obtained by others. . Diagnoses: (R07.89) Chest wall pain (primary encounter diagnosis) (Z85.3) History of left breast cancer (Z80.3) Family history of breast cancer I spent a total of 32 minutes on the date of the service which included preparing to see the patient with review of any pertinent laboratory studies/radiological imaging/medical records from other medical facilities such as [facility], [id number] patient care, obtaining oral medical history from the patient in this encounter, performing a medically appropriate examination, counseling and educating the patient/family/caregiver, and completing appropriate medical documentation. Doris Tobin MD documented in this encounter [facility] 05-29-2024 Note HNO ID: [id number] Author: DORIS TOBIN MD Service: ? Author Type: Physician Type: Progress Notes Filed: 05/31/2024 15:52 Note Text: Angel Xavier Reich 1960 REFERRING PHYSICIAN: No ref. provider found CHIEF COMPLAINT: New Patient HPI: The patient is a 64 year old female presents with complaint of left chest pain and breast pain. 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 She has been followed by Dr. Olsen She denies palpable breast masses. Denies nipple discharge. Denies breast pain. Mother had breast cancer diagnosed in her 40s. Sister had bilateral breast cancer diagnosed in her 30s and also ovarian cancer. Another sister had ovarian cancer. Mother's mother and father's mother had breast cancer. Other second degree relatives with breast cancer. No known testing for BRCA in the family. She states that the pain is in her left axilla and extends to her left breast and left chest wall. It has been present for about three weeks. She states that it is a severe ache, with occasional sharp pains. She does have a diagnosis of fibromyalgia. She had breast radiological studies - Left breast mammograms, bilateral diagnostic 04/11/2024; left breast US 04/11/2024 - no abnormalities seen She has poorly controlled diabetes with persistently elevated HgbA1c on insulin. PAST MEDICAL HISTORY Diagnosis Date Asthma CAD (coronary artery disease) 09/2018 70% occlusion of the distal left circumflex, 60% occlusion of the right RCA DCIS (ductal carcinoma in situ) of breast 2019 left Depressive disorder, not elsewhere classified Essential hypertension, benign Family history of malignant neoplasm of breast mother and sisters Fibromyalgia Generalized osteoarthrosis, unspecified site GERD (gastroesophageal reflux disease) Hearing impaired since age 4, reads lips Other and unspecified hyperlipidemia PONV (postoperative nausea and vomiting) 03/16/2017 STEMI (ST elevation myocardial infarction) (HCC) 09/2018 LIZETTE X2 :LAD Type II or unspecified type diabetes mellitus without mention of complication, not stated as uncontrolled PAST SURGICAL HISTORY Procedure Laterality Date ANGIO TRANSCATH STENT PLACEMEN 09/2018 LIZETTE X2 LAD BREAST BIOPSY Left 10/26/2018 BREAST BIOPSY CORE 1998 neg BREAST LUMPECTOMY HX Left 11/2018 CHOLECYSTECTOMY Cholecystectomy LEFT HEART CATH,PERCUTANEOUS 2007, 2004 Cardiac cath, L heart MYRINGOTOMY ASPIRAND/EUSTACHIAN TUBE NFLTJ ANES Myringotomy/tubes PAST SURGICAL HISTORY OF corrective eye surgery TOTAL ABDOMINAL HYSTERECT W/WO RMVL TUBE OVARY Hysterectomy, CRIS Current Outpatient Medications Medication Sig insulin aspart U-100 (NOVOLOG) 100 unit/mL Sliding scale insulin glargine (LANTUS) 100 unit/mL injection Inject 20 Units subcutaneously two times a day. busPIRone (BUSPAR) 5 mg tablet Take 1 tablet by mouth twice daily. ranolazine ER (RANEXA) 500 mg 12 hr tablet Take 1 tablet by mouth every 12 hours. carvedilol (COREG) 6.25 mg tablet Take 1 tablet by mouth twice daily. traZODone (DESYREL) 100 mg tablet TAKE TWO TABLETS BY MOUTH ONCE DAILY AT BEDTIME calcium carbonate-vitamin D3 (OSCAL+D) 500 mg(1,250mg) -400 unit chewable tablet Take 1 tablet by mouth twice daily. anastrozole (ARIMIDEX) 1 mg tablet Take 1 tablet by mouth once daily. citalopram (CELEXA) 20 mg tablet Take 1 tablet by mouth once daily. rosuvastatin (CRESTOR) 40 mg tablet Take 1 tablet by mouth once daily. albuterol HFA (VENTOLIN HFA) 90 mcg/actuation inhaler Inhale 2 Puffs as instructed every 4 hours as needed for Wheezing/Shortness of Breath. glucagon (GLUCAGON EMERGENCY KIT, HUMAN,) 1 mg solr Inject 1 mg intramuscularly one time only for 1 dose. lisinopril 2.5 mg tablet Take 1 tablet by mouth once daily. fluticasone-salmeterol (ADVAIR DISKUS) 250-50 mcg/dose dsdv Inhale 1 Puff as instructed twice daily. Rinse and gargle mouth after use with water. acetaminophen (TYLENOL ARTHRITIS PAIN) 650 mg CR tablet Take 1 tablet by mouth every 8 hours as needed. albuterol (PROVENTIL) 2.5 mg /3 mL (0.083 %) nebulizer solution Use 3 mL via nebulizer every 6 hours as needed for Wheezing/Shortness of Breath. Use over 5-15minutes. glucose 4 gram chewable tablet Take 4 tablets by mouth as needed for Low Blood Sugar. aspirin, enteric coated (ASPIR-LOW) 81 mg EC tablet Take 1 tablet by mouth once daily. meclizine (ANTIVERT) 25 mg tab Take 25 mg by mouth every 6 hours as needed. PSYLLIUM SEED, WITH SUGAR, (METAMUCIL ORAL) Take by mouth as needed. polyethylene glycol 3350 (MIRALAX) 17 gram/dose powder Take 17 g by mouth once daily. (Patient taking differently: Take 17 g by mouth as needed.) oxybutynin XL (DITROPAN XL) 5 mg 24 hr tablet Take 5 mg by mouth once daily. (Patient not taking: Reported on 05/29/2024) insulin NPH injection (Hum (more content not included)... [facility] 05-29-2024 Nurse Note REVIEW OF SYSTEMS: General: The patient denies fatigue, denies weight loss, denies weight gain, denies feeling hot, and denies feelings of cold. Eyes: The patient denies glaucoma, denies eye injury/surgery, wears glasses or contacts. Ear/Nose/Throat: The patient denies allergies, denies hayfever, denies ear infections, and denies bloody noses. Cardiovascular: The patient denies chest pain, NOTES heart disease, NOTES high blood pressure,NOTES cardiac stent, NOTES prior heart attack, denies irregular heart beat, denies high cholesterol, denies poor circulation, denies heart failure, other cardiac issues, denies claudication, denies cold feet, denies peripheral arterial stent., NOTES leg pain Respiratory: The patient denies tuberculosis, denies pneumonia, denies frequent cough, denies pulmonary embolism, denies shortness of breath, and denies coughing up blood. Gastrointestinal: The patient denies difficulty swallowing, denies acid reflux, denies ulcers, denies vomiting, denies jaundice/hepatitis, denies gallbladder problems, denies black or tarry stools, denies hemorrhoids, denies bleeding from rectum, denies diverticulitis, denies constipation, NOTES diarrhea, denies loss of stool control, and denies hernias. Kidney/Bladder: The patient denies kidney stones, denies urine infections, and denies bloody urine. Skin: The patient denies a history of skin cancer, denies bleeding/changing moles, and denies a history of skin rash. Neurologic: The patient denies a history of epilepsy/convulsions, denies headaches, denies head/spinal injuries, and denies stroke/TIA. Psychiatric: The patient denies psychiatric medications, NOTES depression, and denies voices, denies substance abuse. Endocrine: The patient denies thyroid disorders, NOTES diabetes, and denies hormonal problems. Hematologic: The patient denies a history of bruising, denies bleeding, and denies anemia, denies blood clots. Infections: The patient denies a history of measles and mumps, denies rheumatic fever, and denies sexually transmitted diseases. Musculoskeletal: The patient denies back pain/injury, denies back problems, denies sciatica, denies knee/foot trouble, NOTES arthritis, or denies gout. When was patient's last Mammogram screening? 04/11/24 Last Colonoscopy: 2022 at Layo Velasco RN [facility] 05-29-2024 Nurse Note REVIEW OF SYSTEMS: General: The patient denies fatigue, denies weight loss, denies weight gain, denies feeling hot, and denies feelings of cold. Eyes: The patient denies glaucoma, denies eye injury/surgery, wears glasses or contacts. Ear/Nose/Throat: The patient denies allergies, denies hayfever, denies ear infections, and denies bloody noses. Cardiovascular: The patient denies chest pain, NOTES heart disease, NOTES high blood pressure,NOTES cardiac stent, NOTES prior heart attack, denies irregular heart beat, denies high cholesterol, denies poor circulation, denies heart failure, other cardiac issues, denies claudication, denies cold feet, denies peripheral arterial stent., NOTES leg pain Respiratory: The patient denies tuberculosis, denies pneumonia, denies frequent cough, denies pulmonary embolism, denies shortness of breath, and denies coughing up blood. Gastrointestinal: The patient denies difficulty swallowing, denies acid reflux, denies ulcers, denies vomiting, denies jaundice/hepatitis, denies gallbladder problems, denies black or tarry stools, denies hemorrhoids, denies bleeding from rectum, denies diverticulitis, denies constipation, NOTES diarrhea, denies loss of stool control, and denies hernias. Kidney/Bladder: The patient denies kidney stones, denies urine infections, and denies bloody urine. Skin: The patient denies a history of skin cancer, denies bleeding/changing moles, and denies a history of skin rash. Neurologic: The patient denies a history of epilepsy/convulsions, denies headaches, denies head/spinal injuries, and denies stroke/TIA. Psychiatric: The patient denies psychiatric medications, NOTES depression, and denies voices, denies substance abuse. Endocrine: The patient denies thyroid disorders, NOTES diabetes, and denies hormonal problems. Hematologic: The patient denies a history of bruising, denies bleeding, and denies anemia, denies blood clots. Infections: The patient denies a history of measles and mumps, denies rheumatic fever, and denies sexually transmitted diseases. Musculoskeletal: The patient denies back pain/injury, denies back problems, denies sciatica, denies knee/foot trouble, NOTES arthritis, or denies gout. When was patient's last Mammogram screening? 04/11/24 Last Colonoscopy: 2022 at Layo Velasco RN documented in this encounter [facility] 05-12-2023 Consult note Note Date/Time May 12, 2023 6:35am [facility] Medical Records Department [address] [place] [id number] Consultation - GI 05/11/23 2300 MR#: [id number] Acct: [id number] Name: ANGEL REICH Rep #:[id number] : 1960 63 From: Efraín Friend DO PCP: Felicita Hill DO Status:ADM I NO [id number] Consult Data Date of Consult: 05/11/23 HPI Narrative Reason for Consultation: GI bleeding HPI Narrative: ANGEL REICH, is a 63 F who presents secondary to abdominal pain and rectal bleeding. PMH is significant history of diabetes mellitus and CAD status post 2 stents 3 years ago. She states yesterday she went to a local restaurant. She can even eat because she developed abdominal cramping and had dark tarry stools. She states today her pain is improved but she continues to have dark tarry stools. She denies ever having a colonoscopy. No history of ulcers. She takesaspirin daily but no other form of anticoagulant. She had a CT scan abdomen pelvis in the ED and it showed diffuse colitis involving the left side of the colon. Stool studies for infection are pending. Her history is also significant for DCIS of the left breast, status post partialmastectomy November 2018, followed by adjuvant radiation and has been on adjuvant hormonal therapy since. Initially treated with tamoxifen then switched to Arimidex due to an adverse drug reaction (hives). Compliance with hormonal therapy has not been optimal, patient interrupted treatment sometime in 2021/2022. She has a strong family history of breast cancer involving 3 generations, BRCA 1and 2 testing negative in 2005 (according to patient). Updated genetic testing August 2021 was negative as per Oncology. [facility] Medical History Abnormal mammogram Anxiety Asthma Atherosclerosis of coronary artery of jamul heart without angina pectoris Bilateral hip pain Bilateral knee pain Cancer Cardiology follow-up encounter Cast in place on extremity Chronic suprapubic pain COPD (chronic obstructive pulmonary disease) Depression Depression Diabetes mellitus type 2 in obese Dietary restriction Essential (primary) hypertension Fibromyalgia GERD (gastroesophageal reflux disease) High cholesterol History of edema History of heart attack History of Holter monitoring History of stress test Hyperlipidemia Insulin dependent diabetes mellitus Ischemic cardiomyopathy Learning disabilities Memory loss Noncompliance with diabetes treatment Obesity Open wound Osteoarthritis Polyarthropathy Rheumatoid arthritis STEMI (ST elevation myocardial infarction) (10/10/18) Strep pharyngitis Syncope Type 2 diabetes mellitus Urinary incontinence Wears glasses Wears hearing aid Home Medications aspirin 81 mg tablet,delayed release 81 mg PO DAILY@0800 10/12/18 [Rx Last Taken 05/11/23] meclizine 25 mg tablet 25 mg PO TID PRN PRN Dizziness 07/14/20 [History Last Taken 05/10/23] calcium carbonate 200 mg calcium (500 mg)-vitamin D3 400 unit tablet 1 tab PO BID 08/26/20 [History Last Taken 05/11/23] insulin syringe-needle U-100 0.3 mL 31 gauge x 5/16 (BD Insulin Syringe Ultra-Fine) #120 ea 11/24/21 [Rx Last Taken Unknown] flash glucose sensor (FreeStyle Abhinav 2 Sensor kit) #2 ea 05/14/22 [Rx Last Taken Unknown] albuterol sulfate 90 mcg/actuation aerosol inhaler (Ventolin HFA) 2 puff inhalation Q6H PRN shortness of breath or wheezing 07/15/22 [History Last Taken 05/04/23] omeprazole 40 mg capsule,delayed release 40 mg PO DAILY #90 caps 08/05/22 [Rx Last Taken 05/12/23] duloxetine 30 mg capsule,delayed release 30 mg PO BID #180 caps 08/07/22 [Rx Last Taken 05/11/23] oxybutynin chloride 10 mg tablet,extended release 24 hr 10 mg PO DAILY #90 tabs 08/07/22 [Rx Last Taken 05/12/23] nitroglycerin 0.4 mg sublingual tablet 0.4 mg sublingual Q5-15M PRN chest pain #25 tabs 08/12/22 [Rx Last Taken Unknown] lancets 28 gauge (Comfort EZ Lancets) #100 ea 09/03/22 [Rx Last Taken Unknown] rosuvastatin 40 mg tablet 40 mg PO DAILY cholestrol #90 tabs 10/12/22 [Rx Last Taken 05/12/23] anastrozole 1 mg tablet 1 mg PO DAILY #90 tabs 12/22/22 [Rx Last Taken 05/11/23] carvedilol 6.25 mg tablet 6.25 mg PO BID #180 tabs 12/22/22 [Rx Last Taken 05/11/23] bupropion HCl 150 mg tablet,12 hr sustained-release (Wellbutrin SR) 150 mg PO DAILY 02/04/23 [History Last Taken 05/11/23] ondansetron 4 mg disintegrating tablet 4 mg PO Q6H PRN nausea and vomiting #12 tabs 02/15/23 [Rx Last Taken 05/11/23] fluticasone 250 mcg-salmeterol 50 mcg/dose blistr powdr for inhalation 1 ea inhalation BID PRN shortness of breath or wheezing 02/19/23 [History Last Taken Unknown] trazodone 100 mg tablet 200 mg PO QHS 02/19/23 [History Last Taken 05/11/23] Novolog U-100 Insulin aspart 100 unit/mL subcutaneous solution (insulin aspart U-100) 20 unit (0.2 mL) subcut TID #20 mL 03/15/23 [Rx Last Taken 05/12/23] blood sugar diagnostic (Accu-Chek Guide test strips) #100 ea 03/15/23 [Rx Last Taken Unknown] isosorbide mononitrate 60 mg tablet,extended release 24 hr 60 mg PO DAILY #90 tabs 05/04/23 [Rx Last Taken 05/11/23] insulin syringe-needle U-100 0.3 mL 31 gauge x 5/16 (BD Insulin Syringe Ultra-Fine) #200 ea 05/07/23 [Rx Last Taken Unknown] insulin glargine 100 unit/mL subcutaneous solution (Lantus U-100 Insulin) 40 unit subcut QHS 05/11/23 [History Last Taken 05/10/23] Allergy/AdvReac Type Severity Reaction Status Date / Time egg Allergy Severe Anaphylaxis Verified 05/11/23 17:18 fish derived Allergy Severe Unknown Verified 05/11/23 17:18 nitrofurantoin Allergy Severe Anaphylaxis Verified 05/11/23 17:18 macrocrystalline [From Macrodantin] calcium carbonate AdvReac Severe unknown Verified 05/11/23 17:18 [From Florical] codeine AdvReac Severe unknown Verified 05/11/23 17:18 oxycodone HCl [From Percocet] AdvReac Severe unknown Verified 05/11/23 17:18 propoxyphene napsylate AdvReac Severe unknown Verified 05/11/23 17:18 [From Darvocet-N 100] sodium fluoride AdvReac Severe unknown Verified 05/11/23 17:18 [From Florical] Sulfa (Sulfonamide AdvReac Severe Hives Verified 05/11/23 17:18 Antibiotics) tamoxifen AdvReac Severe Hives Verified 05/11/23 17:18 dulaglutide [From Trulicity] AdvReac Intermediate Diarrhea Verified 05/11/23 17:18 glimepiride AdvReac Intermediate Diarrhea Verified 05/11/23 17:18 morphine AdvReac Other Verified 05/11/23 17:18 Family History Sister Heart disease Breast cancer Asthma Depression Mother Diabetes Heart disease Breast cancer Arthritis Father Diabetes Heart disease Arthritis Unknown No problems noted. Brother Arthritis Surgical History H/O breast surgery History of coronary artery stent placement (10/10/18) History of hysterectomy History of left heart catheterization (LHC) (03/15/19) History of lumpectomy of left breast Hx of cholecystectomy Social History Smoking Status: Never smoker alcohol intake: never substance use type: does not use caffeine: No what type of physical activity do you participate in: walking, aerobics and weight training ROS Constitutional Constitutional: Reports systems reviewed and no addt'l complaints, except as documented and fatigue; Denies fever(s) or weight loss Eyes Eyes: Reports systems reviewed and no addt'l complaints, except as documented; Denies change in vision ENT HEENT: Reports systems reviewed and no addt'l complaints, except as documented Cardiovascular Cardiovascular: Reports systems reviewed and no addt'l complaints, except as documented, chest pain and other Details: Chest pain deep in the left axilla unrelated to exertion chronic. ; Denies chest pain with activity or edema Respiratory/Chest Respiratory/Chest: Reports systems reviewed and no addt'l complaints, except as documented, cough, dyspnea on exertion, wheezing and other Details: Has chronic asthma, never smoked Gastrointestinal Gastrointestinal: Reports systems reviewed and no addt'l complaints, except as documented; Denies change in bowel habits, hematochezia or melena Genitourinary Genitourinary: Reports systems reviewed and no addt'l complaints, except as documented; Denies hematuria Musculoskeletal Musculoskeletal: Reports systems reviewed and no addt'l complaints, except as documented and arthralgias Integumentary Integumentary: Reports systems reviewed and no addt'l complaints, except as documented; Denies rash Neurologic Neurologic: Reports systems reviewed and no addt'l complaints, except as documented and memory loss; Denies focal weakness or paresthesias Psychiatric Psychiatric: Reports systems reviewed and no addt'l complaints, except as documented Endocrine Endocrinology: Reports systems reviewed and no addt'l complaints, except as documented; Denies flushing Hematologic/Lymphatic Hematologic/Lymphatic: Reports systems reviewed and no addt'l complaints, exceptas documented; Denies easy bleeding or lymphadenopathy Allergic/Immunologic Allergic/Immunologic: Reports systems reviewed and no addt'l complaints, except as documented, wheezing and asthma Physical Exam Narrative Physical exam: General: Well-nourished, well-developed. Head: Normocephalic, atraumatic, no tenderness Eyes: Vision is grossly intact. EOMI ENT, no trauma, moist mucous membranes, no rhinorrhea Neck: Nontender, No thyromegaly. CVS: Regular rate and rhythm. S1-S2 present. No murmur, gallop or rub. Respiratory : clear to auscultation bilaterally, chest wall nontender Abdomen: Soft, nontender, nondistended, normal bowel sounds, no masses : Deferred Back: Nontender, no CVA tenderness, no midline spinal tenderness, deformities, step-offs Extremities: Nontender full range of motion, no trauma Skin: Normal color, no trauma, abrasions Neuro: Alert, oriented, cranial nerves II through XII grossly intact. Psychiatry: Normal mood. Normal affect. Not depressed. Not anxious. Lab / Micro Data 05/11/23 23:50 05/11/23 18:45 Labs: Laboratory Results - last 24 hr 05/11/23 18:45: WBC 9.7, RBC 4.79, Hgb 13.8, Hct 41.7, MCV 87.1, MCH 28.8, MCHC 33.1, RDW Std Deviation 38.6, RDW Coeff of Sanjay 11.9, Plt Count 257, MPV 10.8, Immature Gran % (Auto) 0.300, Neut % (Auto) 68.9, Lymph % (Auto) 21.0, [place] % (Auto) 5.9, Eos % (Auto) 3.5, Baso % (Auto) 0.4, Absolute Neuts (auto) 6.7, Absolute Lymphs (auto) 2.03, Nucleated RBC % 0, PT 12.9, INR 1.0, APTT 28.8, Sodium 134 L, Potassium 4.0, Chloride 100, Carbon Dioxide 27.0, Anion Gap 7, BUN14, Creatinine 0.94, Estim Creat Clear Calc 71.00, Est GFR (MDRD) Af Amer 77, Est GFR (MDRD) Non-Af 63, BUN/Creatinine Ratio 14.8, Glucose 452 H*, Calcium 8.7, Total Bilirubin 0.50, Direct Bilirubin 0.11, AST 17, ALT 26, Alkaline Phosphatase 72, Total Protein 7.3, Albumin 3.6, Globulin 3.7 05/11/23 22:15: POC Glucose 212 H 05/11/23 23:50: Hgb 14.8, Hct 43.6 05/11/23 23:59: POC Glucose 142 H Micro: Microbiology 05/11/23 19:55 Stool Stool Occult Blood (HUAN) - Final Occult Blood Positive Radiology Impression Abdomen/Pelvis CT 05/11/23 18:16 IMPRESSION: Descending colitis. No bowel obstruction. Nonvisualized appendix with no secondary signs of acute appendicitis. Status post cholecystectomy, otherwise unremarkable abdominal viscera. 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 Her abdomen and pelvis CT showed descending colitis per radiologist interpretation. Abdomen/pelvis CT wasindependently interpreted inflammation of descending colon noted. Patient with no fever or leukocytosis. The differential diagnosis does include ischemic colitis, ulcerative colitis, infectious colitis. She should undergo colonoscopyfor evaluation of her lower GI tract. Pending the severity of the colonoscopy she may need a CT angiography. She will also need stool studies for enteric pathogens and C. difficile. She was explained alternatives, risk, benefits including not withstanding bleeding, infection, sepsis, perforation, need for emergent surgery . She will have an ASA of 3. 05/12/23 0641 <Electronically signed by Efraín Vila DO> Cosigner Signature (if applicable): CC: Felicita Hill DO~ Signed [facility] Work Phone: [phone] 341-190610-11-2023 Procedure [facility] 05-12-2023 Procedure [facility]10-11-2023 History and physical note Author Alek Leon [facility] May 12, 2023 12:43am Note Date/Time May 11, 2023 1 0:23pm [facility] Medical Records Department [address] [place] [address] H&P Exam - Hospitalist 05/11/232 MR#: [id number] Acct: [id number] Name: ANGEL REICH Rep #:[id number] : 1960 63 From: Alek Leon MD PCP: Felicita Hill, DO Status:ADM I NO [place] [facility] [id number] HPI - General General Date of Admission: 05/11/23 Date of Service: 05/11/23 Chief Complaint: BRIGHT RED BLOOD PER RECTUM HPI Narrative ANGEL REICH, is a 63 F with significant history of diabetes mellitus and CAD status post 2 stents 3 years ago who presents to the emergency department with bright red blood per rectum. Patient's symptoms started a day before presentation with 2 episodes of bowel movements with his stool mixed with blood. On the day of presentation patient did not not have any bowel movements. However she had two episodes of bright red blood per rectum. Of note at baseline patient's bowel does not move every day. Typically her bowels move 1-2times per week. Associated with patient's symptoms is abdominal cramping. She denies any nauseaor vomiting. Patient has never had a colonoscopy before. Emergency department doctor reports brown stool that tested positive for occult blood. CT of abdomen and pelvis showed colitis. Per discussion between ED doctor and gastroenterology no antibiotics is needed at this time. [facility] Medical History Abnormal mammogram Anxiety Asthma Atherosclerosis of coronary artery of jamul heart without angina pectoris Bilateral hip pain Bilateral knee pain Cancer Cardiology follow-up encounter Cast in place on extremity Chronic suprapubic pain COPD (chronic obstructive pulmonary disease) Depression Depression Diabetes mellitus type 2 in obese Dietary restriction Essential (primary) hypertension Fibromyalgia GERD (gastroesophageal reflux disease) High cholesterol History of edema History of heart attack History of Holter monitoring History of stress test Hyperlipidemia Insulin dependent diabetes mellitus Ischemic cardiomyopathy Learning disabilities Memory loss Noncompliance with diabetes treatment Obesity Open wound Osteoarthritis Polyarthropathy Rheumatoid arthritis STEMI (ST elevation myocardial infarction) (10/10/18) Strep pharyngitis Syncope Type 2 diabetes mellitus Urinary incontinence Wears glasses Wears hearing aid Home Medications aspirin 81 mg tablet,delayed release 81 mg PO DAILY@0800 10/12/18 [Rx Last Taken 05/11/23] meclizine 25 mg tablet 25 mg PO TID PRN PRN Dizziness 07/14/20 [History Last Taken 05/10/23] calcium carbonate 200 mg calcium (500 mg)-vitamin D3 400 unit tablet 1 tab PO BID 08/26/20 [History Last Taken 05/11/23] insulin syringe-needle U-100 0.3 mL 31 gauge x 5/16 (BD Insulin Syringe Ultra- Fine) #120 ea 11/24/21 [Rx Last Taken Unknown] flash glucose sensor (FreeStyle Abhinav 2 Sensor kit) #2 ea 05/14/22 [Rx Last Taken Unknown] albuterol sulfate 90 mcg/actuation aerosol inhaler (Ventolin HFA) 2 puff inhalation Q6H PRN shortness of breath or wheezing 07/15/22 [History Last Taken 05/04/23] omeprazole 40 mg capsule,delayed release 40 mg PO DAILY #90 caps 08/05/22 [Rx Last Taken 05/12/23] duloxetine 30 mg capsule,delayed release 30 mg PO BID #180 caps 08/07/22 [Rx Last Taken 05/11/23] oxybutynin chloride 10 mg tablet,extended release 24 hr 10 mg PO DAILY #90 tabs 08/07/22 [Rx Last Taken 05/12/23] nitroglycerin 0.4 mg sublingual tablet 0.4 mg sublingual Q5-15M PRN chest pain #25 tabs 08/12/22 [Rx Last Taken Unknown] lancets 28 gauge (Comfort EZ Lancets) #100 ea 09/03/22 [Rx Last Taken Unknown] rosuvastatin 40 mg tablet 40 mg PO DAILY cholestrol #90 tabs 10/12/22 [Rx Last Taken 05/12/23] anastrozole 1 mg tablet 1 mg PO DAILY #90 tabs 12/22/22 [Rx Last Taken 05/11/23] carvedilol 6.25 mg tablet 6.25 mg PO BID #180 tabs 12/22/22 [Rx Last Taken 05/11/23] bupropion HCl 150 mg tablet,12 hr sustained-release (Wellbutrin SR) 150 mg PO DAILY 02/04/23 [History Last Taken 05/11/23] ondansetron 4 mg disintegrating tablet 4 mg PO Q6H PRN nausea and vomiting #12 tabs 02/15/23 [Rx Last Taken 05/11/23] fluticasone 250 mcg-salmeterol 50 mcg/dose blistr powdr for inhalation 1 ea inhalation BID PRN shortness of breath or wheezing 02/19/23 [History Last Taken Unknown] trazodone 100 mg tablet 200 mg PO QHS 02/19/23 [History Last Taken 05/11/23] Novolog U-100 Insulin aspart 100 unit/mL subcutaneous solution (insulin aspart U-100) 20 unit (0.2 mL) subcut TID #20 mL 03/15/23 [Rx Last Taken 05/12/23] blood sugar diagnostic (Accu-Chek Guide test strips) #100 ea 03/15/23 [Rx Last Taken Unknown] isosorbide mononitrate 60 mg tablet,extended release 24 hr 60 mg PO DAILY #90 tabs 05/04/23 [Rx Last Taken 05/11/23] insulin syringe-needle U-100 0.3 mL 31 gauge x 5/16 (BD Insulin Syringe Ultra- Fine) #200 ea 05/07/23 [Rx Last Taken Unknown] insulin glargine 100 unit/mL subcutaneous solution (Lantus U-100 Insulin) 40 unit subcut QHS 05/11/23 [History Last Taken 05/10/23] Allergy/AdvReac Type Severity Reaction Status Date / Time egg Allergy Severe Anaphylaxis Verified 05/11/23 17:18 fish derived Allergy Severe Unknown Verified 05/11/23 17:18 nitrofurantoin Allergy Severe Anaphylaxis Verified 05/11/23 17:18 macrocrystalline [From Macrodantin] calcium carbonate AdvReac Severe unknown Verified 05/11/23 17:18 [From Florical] codeine AdvReac Severe unknown Verified 05/11/23 17:18 oxycodone HCl [From Percocet] AdvReac Severe unknown Verified 05/11/23 17:18 propoxyphene napsylate AdvReac Severe unknown Verified 05/11/23 17:18 [From Darvocet-N 100] sodium fluoride AdvReac Severe unknown Verified 05/11/23 17:18 [From Florical] Sulfa (Sulfonamide AdvReac Severe Hives Verified 05/11/23 17:18 Antibiotics) tamoxifen AdvReac Severe Hives Verified 05/11/23 17:18 dulaglutide [From Trulicity] AdvReac Intermediate Diarrhea Verified 05/11/23 17:18 glimepiride AdvReac Intermediate Diarrhea Verified 05/11/23 17:18 morphine AdvReac Other Verified 05/11/23 17:18 Family History Sister Heart disease Breast cancer Asthma Depression Mother Diabetes Heart disease Breast cancer Arthritis Father Diabetes Heart disease Arthritis Unknown No problems noted. Brother Arthritis Surgical History H/O breast surgery History of coronary artery stent placement (10/10/18) History of hysterectomy History of left heart catheterization (LHC) (03/15/19) History of lumpectomy of left breast Hx of cholecystectomy Social History Smoking Status: Never smoker alcohol intake: never substance use type: does not use caffeine: No what type of physical activity do you participate in: walking, aerobics and weight training ROS ROS Narrative Pertinent positives and pertinent negatives as noted in HPI. All other systems were reviewed and are negative Vital Signs Vital Signs Vital Signs: 05/11/23 17:18 05/11/23 20:56 05/11/23 22:11 Temperature 97.7 F L Temperature Source Temporal Pulse Rate 87 75 76 Respiratory Rate 18 15 15 Blood Pressure 144/87 H 157/86 H 148/84 H Blood Pressure Mean 106 109 105 Pulse Ox 99 96 96 Oxygen Delivery Method Room Air Room Air Weight Weight: 74.389 kg Body Mass Index (BMI) 35.4 Physical Exam Narrative Physical exam: General: Well-nourished, well-developed. Head: Normocephalic, atraumatic, no tenderness Eyes: Vision is grossly intact. EOMI ENT, no trauma, moist mucous membranes, no rhinorrhea Neck: Nontender, No thyromegaly. CVS: Regular rate and rhythm. S1-S2 present. No murmur, gallop or rub. Respiratory : clear to auscultation bilaterally, chest wall nontender Abdomen: Soft, nontender, nondistended, normal bowel sounds, no masses : Deferred Back: Nontender, no CVA tenderness, no midline spinal tenderness, deformities, step-offs Extremities: Nontender full range of motion, no trauma Skin: Normal color, no trauma, abrasions Neuro: Alert, oriented, cranial nerves II through XII grossly intact. Psychiatry: Normal mood. Normal affect. Not depressed. Not anxious. Results Lab / Micro Data 05/11/23 23:50 05/11/23 18:45 Labs: Laboratory Results - last 24 hr 05/11/23 18:45: WBC 9.7, RBC 4.79, Hgb 13.8, Hct 41.7, MCV 87.1, MCH 28.8, MCHC 33.1, RDW Std Deviation 38.6, RDW Coeff of Sanjay 11.9, Plt Count 257, MPV 10.8, Immature Gran % (Auto) 0.300, Neut % (Auto) 68.9, Lymph % (Auto) 21.0, [place] % (Auto) 5.9, Eos % (Auto) 3.5, Baso % (Auto) 0.4, Absolute Neuts (auto) 6.7, Absolute Lymphs (auto) 2.03, Nucleated RBC % 0, PT 12.9, INR 1.0, APTT 28.8, Sodium 134 L, Potassium 4.0, Chloride 100, Carbon Dioxide 27.0, Anion Gap 7, BUN14, Creatinine 0.94, Estim Creat Clear Calc 71.00, Est GFR (MDRD) Af Amer 77, Est GFR (MDRD) Non-Af 63, BUN/Creatinine Ratio 14.8, Glucose 452 H*, Calcium 8.7, Total Bilirubin 0.50, Direct Bilirubin 0.11, AST 17, ALT 26, Alkaline Phosphatase 72, Total Protein 7.3, Albumin 3.6, Globulin 3.7 Micro: Microbiology 05/11/23 19:55 Stool Stool Occult Blood (HUAN) - Final Occult Blood Positive Radiology Impression Abdomen/Pelvis CT 05/11/23 18:16 IMPRESSION: Descending colitis. No bowel obstruction. Nonvisualized appendix with no secondary signs of acute appendicitis. Status post cholecystectomy, otherwise unremarkable abdominal viscera. 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 Abdomen and pelvis CT showed descending colitis per radiologist interpretation. Abdomen/pelvis CT was independently interpreted inflammation of descending colonnoted. Patient with no fever or leukocytosis. Hemoglobin on presentation was 13.8; within baseline. Trend. Hold aspirin. Keep NPO. Bowel prep ordered per GI recommendations. GI consult. Supportive treatment with IV fluids. Diabetes mellitus with hyperglycemia Patient has severely elevated blood glucose of 452 on presentation. Received 10 units of short acting insulin in the emergency department. With patient being n.p.o.will de-escalate home dose of basal insulin. Accu-Chek every 4 hours of correction scale insulin ordered. Hypertension Blood pressure is not within goal Home blood pressure medication continued. Trend blood pressure and adjust blood pressure medications. DVT prophylaxis SCDs ordered. Time spent in the patient's overall evaluation,decision-making process, review of diagnostic data, adjustment of management, discussion with other providers, nursing nursing and ancillary staff involved in patient's care documentation, 60minutes. Charges/Coding Visit Charges Inpatient E&M: 62828 Init Hosp L3 05/12/23 0043 <Electronically signed by Alek Leon MD> Cosigner Signature (if applicable): CC: Dr. Alek Leon MD; Felicita Hill DO~ Signed [facility] Work Phone: [phone]) 229-470510-11-2023 Discharge summary Author Renae Marinelli [facility] May 11, 2023 10:45pm Note Date/Time May 11, 2023 6 :22pm [facility] Medical Records Department [address] [place] [address] Emergency Department Summary 05/11/23 MR#: [id number] Acct: [id number] Name: ANGEL REICH Rep #:[id number] : 1960 63 From: Renae Marinelli MD PCP: Felicita Hill, DO Status:ADM I NO Location: [facility] [place] [address] HPI History of Present Illness Chief Complaint: GI Bleed Informant: patient Onset/Context/Timing Onset: Yesterday Narrative Narrative: Patient presents secondary to abdominal pain and rectal bleeding. She states yesterday she went to a local restaurant. She can even eat because she developed abdominal cramping and had dark tarry stools. She states today her pain is improved but she continues to have dark tarry stools. She denies ever having a colonoscopy. No history of ulcers. She takes aspirin daily but no other form of anticoagulant. PFSH [facility] Medical History Abnormal mammogram Anxiety Asthma Atherosclerosis of coronary artery of jamul heart without angina pectoris Bilateral hip pain Bilateral knee pain Cancer Cardiology follow-up encounter Cast in place on extremity Chronic suprapubic pain COPD (chronic obstructive pulmonary disease) Depression Depression Diabetes mellitus type 2 in obese Dietary restriction Essential (primary) hypertension Fibromyalgia GERD (gastroesophageal reflux disease) High cholesterol History of edema History of heart attack History of Holter monitoring History of stress test Hyperlipidemia Insulin dependent diabetes mellitus Ischemic cardiomyopathy Learning disabilities Memory loss Noncompliance with diabetes treatment Obesity Open wound Osteoarthritis Polyarthropathy Rheumatoid arthritis STEMI (ST elevation myocardial infarction) (10/10/18) Strep pharyngitis Syncope Type 2 diabetes mellitus Urinary incontinence Wears glasses Wears hearing aid Home Medications aspirin 81 mg tablet,delayed release 81 mg PO DAILY@0800 10/12/18 [Rx Last Taken 09/28/19] meclizine 25 mg tablet 25 mg PO TID PRN PRN Dizziness 07/14/20 [History Last Taken Unknown] calcium carbonate 200 mg calcium (500 mg)-vitamin D3 400 unit tablet 1 tab PO BID 08/26/20 [History Last Taken Unknown] insulin syringe-needle U-100 0.3 mL 31 gauge x 5/16 (BD Insulin Syringe Ultra- Fine) #120 ea 11/24/21 [Rx Last Taken Unknown] flash glucose sensor (FreeStyle Abhinav 2 Sensor kit) #2 ea 05/14/22 [Rx Last Taken Unknown] albuterol sulfate 90 mcg/actuation aerosol inhaler (Ventolin HFA) 2 puff inhalation Q6H PRN shortness of breath or wheezing 07/15/22 [History Last Taken Unknown] omeprazole 40 mg capsule,delayed release 40 mg PO DAILY #90 caps 08/05/22 [Rx Last Taken Unknown] duloxetine 30 mg capsule,delayed release 30 mg PO BID #180 caps 08/07/22 [Rx Last Taken Unknown] oxybutynin chloride 10 mg tablet,extended release 24 hr 10 mg PO DAILY #90 tabs 08/07/22 [Rx Last Taken Unknown] nitroglycerin 0.4 mg sublingual tablet 0.4 mg sublingual Q5-15M PRN chest pain #25 tabs 08/12/22 [Rx Last Taken Unknown] lancets 28 gauge (Comfort EZ Lancets) #100 ea 09/03/22 [Rx Last Taken Unknown] rosuvastatin 40 mg tablet 40 mg PO DAILY cholestrol #90 tabs 10/12/22 [Rx Last Taken Unknown] anastrozole 1 mg tablet 1 mg PO DAILY #90 tabs 12/22/22 [Rx Last Taken Unknown] carvedilol 6.25 mg tablet 6.25 mg PO BID #180 tabs 12/22/22 [Rx Last Taken Unknown] bupropion HCl 150 mg tablet,12 hr sustained-release (Wellbutrin SR) 150 mg PO BID 02/04/23 [History Last Taken Unknown] ondansetron 4 mg disintegrating tablet 4 mg PO Q6H PRN nausea and vomiting #12 tabs 02/15/23 [Rx Last Taken Unknown] fluticasone 250 mcg-salmeterol 50 mcg/dose blistr powdr for inhalation 1 ea inhalation BID PRN shortness of breath or wheezing 02/19/23 [History Last Taken Unknown] trazodone 100 mg tablet 200 mg PO QHS 02/19/23 [History Last Taken Unknown] Novolog U-100 Insulin aspart 100 unit/mL subcutaneous solution (insulin aspart U-100) 20 unit (0.2 mL) subcut TID #20 mL 03/15/23 [Rx Last Taken Unknown] blood sugar diagnostic (Accu-Chek Guide test strips) #100 ea 03/15/23 [Rx Last Taken Unknown] oxycodone 5 mg tablet 5 mg PO Q6H PRN pain 5 days #20 tabs 03/31/23 [Rx Last Taken Unknown] isosorbide mononitrate 60 mg tablet,extended release 24 hr 60 mg PO DAILY #90 tabs 05/04/23 [Rx Last Taken Unknown] Lantus U-100 Insulin 100 unit/mL subcutaneous solution (insulin glargine) 24 unit (0.24 mL) subcut QHS #10 mL 05/07/23 [Rx Last Taken Unknown] insulin syringe-needle U-100 0.3 mL 31 gauge x 5/16 (BD Insulin Syringe Ultra- Fine) #200 ea 05/07/23 [Rx Last Taken Unknown] Allergy/AdvReac Type Severity Reaction Status Date / Time egg Allergy Severe Anaphylaxis Verified 05/11/23 17:18 fish derived Allergy Severe Unknown Verified 05/11/23 17:18 nitrofurantoin Allergy Severe Anaphylaxis Verified 05/11/23 17:18 macrocrystalline [From Macrodantin] calcium carbonate AdvReac Severe unknown Verified 05/11/23 17:18 [From Florical] codeine AdvReac Severe unknown Verified 05/11/23 17:18 oxycodone HCl [From Percocet] AdvReac Severe unknown Verified 05/11/23 17:18 propoxyphene napsylate AdvReac Severe unknown Verified 05/11/23 17:18 [From Darvocet-N 100] sodium fluoride AdvReac Severe unknown Verified 05/11/23 17:18 [From Florical] Sulfa (Sulfonamide AdvReac Severe Hives Verified 05/11/23 17:18 Antibiotics) tamoxifen AdvReac Severe Hives Verified 05/11/23 17:18 dulaglutide [From Trulicity] AdvReac Intermediate Diarrhea Verified 05/11/23 17:18 glimepiride AdvReac Intermediate Diarrhea Verified 05/11/23 17:18 morphine AdvReac Other Verified 05/11/23 17:18 Family History Sister Heart disease Breast cancer Asthma Depression Mother Diabetes Heart disease Breast cancer Arthritis Father Diabetes Heart disease Arthritis Unknown No problems noted. Brother Arthritis Surgical History H/O breast surgery History of coronary artery stent placement (10/10/18) History of hysterectomy History of left heart catheterization (LHC) (03/15/19) History of lumpectomy of left breast Hx of cholecystectomy Social History Smoking Status: Never smoker alcohol intake: never substance use type: does not use caffeine: No what type of physical activity do you participate in: walking, aerobics and weight training ROS ROS ED Constitutional Constitutional ED: Denies chills or fever(s) Eyes Eyes: Denies change in vision ENT ENT ED: Denies rhinorrhea or sore throat Cardiovascular Cardiovascular: Denies chest pain or palpitations Respiratory/Chest Respiratory/Chest: Denies cough or dyspnea Gastrointestinal Gastrointestinal: Reports abdominal pain and melena; Denies diarrhea, nausea or vomiting Genitourinary Genitourinary ED: Denies dysuria Musculoskeletal Musculoskeletal: Denies back pain or extremity pain Integumentary Denies Abrasions or rash Neurologic Neurologic: Denies headache(s) or weakness Psychiatric Psychiatric: Denies anxiety or depression Allergic/Immunologic Allergic/Immunologic ED: Denies lip swelling or urticaria EXAM Physical Exam Const Vital Signs: 05/11/23 17:18 05/11/23 20:56 Temperature 97.7 F L Temperature Source Temporal Pulse Rate 87 75 Respiratory Rate 18 15 Blood Pressure 144/87 H 157/86 H Blood Pressure Mean 106 109 Pulse Ox 99 96 Oxygen Delivery Method Room Air Positive well nourished and well developed General Appearance ED: well developed HEENT Reports moist mucous membranes Eyes EOMs intact bilaterally Chest Wall inspection of chest normal and palpation of chest normal Resp normal respiratory effort and clear to auscultation bilaterally Cardio regular rate and regular rhythm GI non-tender Auscultation: hypoactive bowel sounds Palpation: soft Extremity normal to inspection Neuro oriented x3 Sensorium / Orientation: alert Psych mental status grossly normal Skin no rashes or lesions noted MDM MDM MDM Narrative Medical decision making narrative: IV line established. Labwork obtained to evaluate for leukocytosis, anemia, andelectrolyte derangement. CT scan of the abdomen pelvis with IV contrast obtained to evaluate for any focal bowel wall thickening. History & Record Review Discussion w/independent historian: Patient and Family Lab Data Attestation: I reviewed the patient's lab results. Labs: Laboratory Results - last 24 hr 05/11/23 18:45 WBC 9.7 RBC 4.79 Hgb 13.8 Hct 41.7 MCV 87.1 MCH 28.8 MCHC 33.1 RDW Std Deviation 38.6 RDW Coeff of Sanjay 11.9 Plt Count 257 MPV 10.8 Immature Gran % (Auto) 0.300 Neut % (Auto) 68.9 Lymph % (Auto) 21.0 [place] % (Auto) 5.9 Eos % (Auto) 3.5 Baso % (Auto) 0.4 Absolute Neuts (auto) 6.7 Absolute Lymphs (auto) 2.03 Nucleated RBC % 0 PT 12.9 INR 1.0 APTT 28.8 Sodium 134 L Potassium 4.0 Chloride 100 Carbon Dioxide 27.0 Anion Gap 7 BUN 14 Creatinine 0.94 Estim Creat Clear Calc 71.00 Est GFR (MDRD) Af Amer 77 Est GFR (MDRD) Non-Af 63 BUN/Creatinine Ratio 14.8 Glucose 452 H* Calcium 8.7 Total Bilirubin 0.50 Direct Bilirubin 0.11 AST 17 ALT 26 Alkaline Phosphatase 72 Total Protein 7.3 Albumin 3.6 Globulin 3.7 Radiography Diagnostic Testing: Clinical Impression(s) from Imaging Studies Abdomen/Pelvis CT 05/11/23 18:16 IMPRESSION: Descending colitis. No bowel obstruction. Nonvisualized appendix with no secondary signs of acute appendicitis. Status post cholecystectomy, otherwise unremarkable abdominal viscera. Electronically Signed: Nydia Reilly MD at 19:56 EDT , Treatment and Re-Evaluation :: CBC was normal white count 9.7 with a hemoglobin of 13.8. Chemistry studies areunremarkable other than a glucose of 452. Patient states she has not taken her insulin and she is given 10 units of insulin here. LFTs are unremarkable. Stool guaiac does return positive. CT scan of the abdomen and pelvis reveals descending colitis with no evidence of bowel obstruction. I spoke with Dr. Vila, on-call for GI. He states that if we can get the patient prepped for colonoscopy he will perform this tomorrow. He would like tohold off on any antibiotics until after the scope. I will speak with the hospitalist. Discharge Plan Triage Chief Complaint: GI Bleed ED Provider: Renae Marinelli Dx/Rx/DC Orders Clinical Impression: GI bleeding, Colitis, Hyperglycemia Prescriptions: No Action calcium carbonate 200 mg calcium (500 mg)-vitamin D3 400 unit tablet 200 mg (500 mg) -400 unit tablet 1 tab PO BID (DME) insulin syringe-needle U-100 [BD Insulin Syringe Ultra-Fine] 0.3 mL 31 gauge x 5/16 syringe See Rx Instructions .ROUTE .MEDSUPPLY Qty: 120 8RF Rx Instructions: 4 times daily (DME) FreeStyle Abhinav 2 Sensor Kit See Rx Instructions .Route Qty: 2 6RF Rx Instructions: As directed albuterol sulfate [Ventolin HFA] 90 mcg/actuation HFA aerosol inhaler 2 puff inhalation Q6H PRN (Reason: shortness of breath or wheezing) bupropion HCl [Wellbutrin SR] 150 mg tablet sustained-release 12 hr 150 mg PO BID insulin glargine [Lantus U-100 Insulin] 100 unit/mL solution 24 unit subcut QHS Qty: 10 6RF (DME) insulin syringe-needle U-100 [BD Insulin Syringe Ultra-Fine] 0.3 mL 31 gauge x 5/16 syringe See Rx Instructions .Route Qty: 200 6RF Rx Instructions: 4 times per day oxycodone 5 mg tablet 5 mg PO Q6H PRN (Reason: pain) 5 Days Qty: 20 0RF aspirin 81 MG tablet 81 mg PO DAILY@0800 0RF meclizine 25 MG tablet 25 mg PO TID PRN PRN (Reason: Dizziness) ondansetron 4 mg tablet,disintegrating 4 mg PO Q6H PRN (Reason: nausea and vomiting) Qty: 12 0RF fluticasone propion-salmeterol 250-50 mcg/dose blister with device 1 ea INHALATION BID PRN (Reason: shortness of breath or wheezing) trazodone 100 mg tablet 200 mg PO QHS omeprazole 40 mg capsule,delayed release(DR/EC) 40 mg PO DAILY Qty: 90 1RF oxybutynin chloride 10 mg tablet extended release 24hr 10 mg PO DAILY Qty: 90 1RF duloxetine 30 mg capsule,delayed release(DR/EC) 30 mg PO BID Qty: 180 1RF nitroglycerin 0.4 mg tablet, sublingual 0.4 mg SUBLINGUAL Q5-15M PRN (Reason: chest pain) Qty: 25 5RF Rx Instructions: until response; do not exceed 3 doses per episode (DME) lancets [Comfort EZ Lancets] 28 gauge misc See Rx Instructions .Route Qty: 100 5RF Rx Instructions: 4x/day rosuvastatin 40 mg tablet 40 mg PO DAILY Qty: 90 3RF anastrozole 1 mg tablet 1 mg PO DAILY Qty: 90 3RF carvedilol 6.25 mg tablet 6.25 mg PO BID Qty: 180 3RF insulin aspart U-100 [Novolog U-100 Insulin aspart] 100 unit/mL solution 20 unit subcut TID Qty: 20 6RF (DME) Accu-Chek Guide test strips Strip See Rx Instructions .Route Qty: 100 12RF Rx Instructions: test tid isosorbide mononitrate 60 mg tablet extended release 24 hr 60 mg PO DAILY Qty: 90 3RF Primary Care Provider: Felicita Hill Referrals: Felicita Hill DO [Primary Care Provider] - Disposition Disposition: Acute Care Hospital [facility] What to do if you have Problems For any increased pain, shortness of breath, bleeding, nausea or vomiting, chestpain, or any unexpected problems, contact your Primary Care Provider. Call [facility] ([phone]) or report to the closest Emergency Room. Call 911 if necessary. 05/11/232244 <Electronically signed by Renae Marinelli MD> Cosigner Signature (if applicable): CC: Felicita Hill DO ~ Signed [facility] Work Phone: [phone] 533-419403-11-2019 Evaluation note* Diagnosis Onset Date Resolution Status Chest pain acute Hypersomnolence acute Essential (primary) hypertension chronic History of coronary artery stent placement October 10, 2018 chronic Hyperlipidemia chronic Obesity acute Polyneuropathy due to type 2 diabetes mellitus chronic Type 2 diabetes mellitus chr onic Sleep concern noneactive GERD (gastroesophageal reflux disease) acute Strep pharyngitis acute Essential (primary) hypertension chronic [facility] Work Phone: [phone]) [phone] Evaluation note* Diagnosis Onset Date Resolution Status 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 History of coronary artery stent placement October 10, 2018 chronic Hyperlipidemia chronic Ischemic colitis acute Chronic constipation chronic Carcinoma in situ, breast, ductal chronic Osteopenia chronic [facility] Work Phone: Consult note Author Mohinder Guadalupe [facility] May 12, 2023 3:40pm Note Date/Time May 12, 2023 3 :41pm [facility] Medical Records Department [address] [place] [address] Counseling Note - Pharmacy 05/12/23 1540 MR#: [id number] Acct: [id number] Name: ANGEL REICH Rep #:[id number] : 1960 63 From: Mohinder Guadalupe PCP: Felicita Hill, DO Status:ADM I NO Y Location: [place] [address] Pharmacy [facility] has performed discharge medication reconciliation and counseling for this patient. The patient's discharge medication list was reviewed for discrepancies and discrepancies were resolved. The patient was counseled on the following discharge medications and changes in medications for homegoing were reviewed. The Reason for Use, instructions for use, and potential side effects were reviewed for all new medications. The patient's questions regarding all of their medications were answered. 1. Dicyclomine 10 mg PO TID PRN abdominal cramping/spasms The patient was able to verbally demonstrate an understanding of their dischargemedications. Medications at Discharge Home Medications aspirin 81 mg tablet,delayed release 81 mg PO DAILY@0800 10/12/18 meclizine 25 mg tablet 25 mg PO TID PRN PRN Dizziness 07/14/20 calcium carbonate 200 mg calcium (500 mg)-vitamin D3 400 unit tablet 1 tab PO BID 08/26/20 insulin syringe-needle U-100 0.3 mL 31 gauge x 5/16 (BD Insulin Syringe Ultra- Fine) #120 ea 11/24/21 flash glucose sensor (FreeStyle Abhinav 2 Sensor kit) #2 ea 05/14/22 albuterol sulfate 90 mcg/actuation aerosol inhaler (Ventolin HFA) 2 puff inhalation Q6H PRN shortness of breath or wheezing 07/15/22 omeprazole 40 mg capsule,delayed release 40 mg PO DAILY #90 caps 08/05/22 duloxetine 30 mg capsule,delayed release 30 mg PO BID #180 caps 08/07/22 oxybutynin chloride 10 mg tablet,extended release 24 hr 10 mg PO DAILY #90 tabs 08/07/22 nitroglycerin 0.4 mg sublingual tablet 0.4 mg sublingual Q5-15M PRN chest pain #25 tabs 08/12/22 lancets 28 gauge (Comfort EZ Lancets) #100 ea 09/03/22 rosuvastatin 40 mg tablet 40 mg PO DAILY cholestrol #90 tabs 10/12/22 anastrozole 1 mg tablet 1 mg PO DAILY #90 tabs 12/22/22 carvedilol 6.25 mg tablet 6.25 mg PO BID #180 tabs 12/22/22 bupropion HCl 150 mg tablet,12 hr sustained-release (Wellbutrin SR) 150 mg PO DAILY 02/04/23 ondansetron 4 mg disintegrating tablet 4 mg PO Q6H PRN nausea and vomiting #12 tabs 02/15/23 fluticasone 250 mcg-salmeterol 50 mcg/dose blistr powdr for inhalation 1 ea inhalation BID PRN shortness of breath or wheezing 02/19/23 trazodone 100 mg tablet 200 mg PO QHS 02/19/23 Novolog U-100 Insulin aspart 100 unit/mL subcutaneous solution (insulin aspart U-100) 20 unit (0.2 mL) subcut TID #20 mL 03/15/23 blood sugar diagnostic (Accu-Chek Guide test strips) #100 ea 03/15/23 isosorbide mononitrate 60 mg tablet,extended release 24 hr 60 mg PO DAILY #90 tabs 05/04/23 insulin syringe-needle U-100 0.3 mL 31 gauge x 5/16 (BD Insulin Syringe Ultra- Fine) #200 ea 05/07/23 insulin glargine 100 unit/mL subcutaneous solution (Lantus U-100 Insulin) 40 unit subcut QHS 05/11/23 dicyclomine 10 mg capsule 10 mg PO TIDAC PRN abdominal pain/Cramping #90 caps 05/12/23 05/12/23 1540 <Electronically signed by Mohinder mooney Date _ Mohinder Deutsch Signature (if applicable): Date CC: ~ Signed [facility] Work Phone: Discharge summary Author Mabel Ortiz [facility] May 12, 2023 2:40pm Note Date/Time May 12, 2023 2 :27pm [facility] Medical Records Department [address] [place], [place] [address] [address] Discharge Summary 05/12/23 1426 MR#: [id number] Acct: [id number] Name: ANGEL REICH Rep #:[id number] : 1960 63 From: Mabel Ortiz DO PCP: Felicita Hill DO Status:ADM I NO Location: [place] [address] Providers Date of Admission: 05/11/23 Date of Discharge: 05/12/23 Primary Care Physician: Felicita Hill DO Consultations 05/11/23 23:16 Consult: Gastroenterology Routine Consulting Provider: [facility] Reason for Consult: BRBPR EMERGENT Consult: No MD Notified: Yes Date Notified: 05/11/23 Time Notified: 22:18 Method of Notification: ED Physician Initiated Reason For Visit: ACUTE LOWER GI BLEED Diagnosis Discharge Diagnosis (1) Bright red blood per rectum: Status: Acute Code(s): K62.5 - Hemorrhage of anus and rectum (2) Type 2 diabetes mellitus: Status: Chronic Code(s): E11.9 - Type 2 diabetes mellitus without complications 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 Diabetes mellitus complication status: with hyperglycemia Qualified Code(s): E11.65 - Type 2 diabetes mellitus with hyperglycemia; Z79.4 - penitentiary (current) use of insulin (3) Essential (primary) hypertension: Status: Chronic Code(s): I10 - Essential (primary) hypertension Medications at Discharge Home Medications aspirin 81 mg tablet,delayed release 81 mg PO DAILY@0800 10/12/18 meclizine 25 mg tablet 25 mg PO TID PRN PRN Dizziness 07/14/20 calcium carbonate 200 mg calcium (500 mg)-vitamin D3 400 unit tablet 1 tab PO BID 08/26/20 insulin syringe-needle U-100 0.3 mL 31 gauge x 5/16 (BD Insulin Syringe Ultra- Fine) #120 ea 11/24/21 flash glucose sensor (FreeStyle Abhinav 2 Sensor kit) #2 ea 05/14/22 albuterol sulfate 90 mcg/actuation aerosol inhaler (Ventolin HFA) 2 puff inhalation Q6H PRN shortness of breath or wheezing 07/15/22 omeprazole 40 mg capsule,delayed release 40 mg PO DAILY #90 caps 08/05/22 duloxetine 30 mg capsule,delayed release 30 mg PO BID #180 caps 08/07/22 oxybutynin chloride 10 mg tablet,extended release 24 hr 10 mg PO DAILY #90 tabs 08/07/22 nitroglycerin 0.4 mg sublingual tablet 0.4 mg sublingual Q5-15M PRN chest pain #25 tabs 08/12/22 lancets 28 gauge (Comfort EZ Lancets) #100 ea 09/03/22 rosuvastatin 40 mg tablet 40 mg PO DAILY cholestrol #90 tabs 10/12/22 anastrozole 1 mg tablet 1 mg PO DAILY #90 tabs 12/22/22 carvedilol 6.25 mg tablet 6.25 mg PO BID #180 tabs 12/22/22 bupropion HCl 150 mg tablet,12 hr sustained-release (Wellbutrin SR) 150 mg PO DAILY 02/04/23 ondansetron 4 mg disintegrating tablet 4 mg PO Q6H PRN nausea and vomiting #12 tabs 02/15/23 fluticasone 250 mcg-salmeterol 50 mcg/dose blistr powdr for inhalation 1 ea inhalation BID PRN shortness of breath or wheezing 02/19/23 trazodone 100 mg tablet 200 mg PO QHS 02/19/23 Novolog U-100 Insulin aspart 100 unit/mL subcutaneous solution (insulin aspart U-100) 20 unit (0.2 mL) subcut TID #20 mL 03/15/23 blood sugar diagnostic (Accu-Chek Guide test strips) #100 ea 03/15/23 isosorbide mononitrate 60 mg tablet,extended release 24 hr 60 mg PO DAILY #90 tabs 05/04/23 insulin syringe-needle U-100 0.3 mL 31 gauge x 5/16 (BD Insulin Syringe Ultra- Fine) #200 ea 05/07/23 insulin glargine 100 unit/mL subcutaneous solution (Lantus U-100 Insulin) 40 unit subcut QHS 05/11/23 dicyclomine 10 mg capsule 10 mg PO TIDAC PRN abdominal pain/Cramping #90 caps 05/12/23 Hospital Course Procedures Colonoscopy and - (CT of the abdomen and pelvis) Summary of Care Provided Minutes Spent on Discharge: 29 Hospital Course: Ms. Reich is a 63-year-old white female with a complicated past medical historyincluding diabetes mellitus and CAD status post 2 stents 3 years ago presented to the emergency department [facility] on 05/11/2023 with rectalbleeding. She went to a local restaurant yesterday and was not able to eat because she developed significant abdominal cramping and then had dark tarry stools. At presentation her pain had improved but she continued to have dark tarry stools. She had never had a previous colonoscopy. She is on chronic aspirin but no other forms of anticoagulation. Vital signs on presentation wereoverall unremarkable and she had a normal CBC and a normal chemistry panel except for marked hyperglycemia with a blood glucose of 452. She is a diabetic at baseline and had a recent hemoglobin A1c on 05/07/2023 that was 10.0. Adjustments were made in her insulin at that time. Her aspirin was held and a repeat hemoglobin was obtained and found to be stable. Gastroenterology was consulted and given the lack of previous colonoscopy and her history of breast cancer with a strong family history she was taken for colonoscopy. Colonoscopy was performed on the a.m. of 02/09/2023 and showed some stool in the rectum, sigmoid colon, descending colon, transverse colon, and ascending colon and the prep was suboptimal however granularity in the rectosigmoid colon was identifiedand biopsies were taken. The patient was able to resume a regular diet and pathology is pending. A repeat colonoscopy was recommended in 3 months due to poor bowel prep for better evaluation of her colon given her age. I discussed the case with Dr. Vila from gastroenterology and he felt the patient could be discharged home as her hemoglobin was stable and she has had no further bleedingand felt that this episode was related to ischemic colitis. He did recommend weput her on as needed Bentyl for abdominal cramping. The patient was given breakfast which she ate but unfortunately had an emesis following. I discussed this further with the patient and she states she intermittently has emesis at home and has antiemetics. Her significant other who is at the bedside states that this has been an ongoing problem for her long-term and she has it a few times a week. They were wanting to go home if possible given that this is a chronic problem and she has had no further rectal bleeding. Since this is a chronic issue for her we did feel stable discharging her but she was instructed to come back if the nausea vomiting does not improve back to her baseline. She was able to be discharged in stable condition on 05/12/2023. I have asked her to follow-up with her primary care physician within the next 2 weeks and to callto make an appointment in the next day or 2 to follow-up with Dr. Vila for hospital follow-up as well as scheduling a more complete colonoscopy to be seen in the next 2 to 3 months. The prescription for her Bentyl was sent to local pharmacy. Continue outpatient endocrinology follow-up for diabetes management. Discharge diagnoses: Rectal bleeding due to suspected ischemic colitis Abdominal cramping-resolved History of breast cancer-the DCIS [id number] CAD Asthma Anxiety Hyperlipidemia Diabetic neuropathy he Can Hypertension GERD Ischemic cardiomyopathy Osteoarthritis Fibromyalgia History of urinary continence Obesity Physical Exam Const alert, oriented x3, no apparent distress, no limitations and well nourished; Negative for average body habitus Constitutional Narrative: Obese, upper middle-aged, white female, sitting up in bed, significant other at bedside, patient appears comfortable and nontoxic General Appearance: cooperative, comfortable, well kempt and well developed Orientation / Consciousness: awake, oriented to person, oriented to place and oriented to time Exam Limitations: no limitations Nutritional Appearance: obese HEENT normocephalic, head/scalp atraumatic, hearing grossly normal bilaterally and moist oral mucous membranes HEENT Narrative: Dentition is fair for age, Mallampati is 2, no thrush Resp normal respiratory effort, no retractions, no use of accessory muscles and clearto auscultation bilaterally Auscultation: Negative for rales, rhonchi or wheezes Cardio regular rate, regular rhythm, S1 normal heart sound, S2 normal heart sound, no murmurs, no rub, no gallops and no clicks GI normal to inspection, nondistended, normoactive bowel sounds, soft to palpation and non-tender Extremity no clubbing, cyanosis or edema Extremity Narrative: Pedal pulses are 2+ Neuro oriented x3, moves all extremities, no focal motor deficits and No no sensory deficits noted Neuro Narrative: Bilateral distal lower extremity sensory losses Speech: speech normal Psych affect normal Psych Narrative: Pleasant, eye contact is good, patient interacts appropriately, mood is stable Weight / BMI Weight Weight: 73.227 kg Body Mass Index (BMI) 34.9 ABG / Lab / Microbiology Data 05/11/23 23:50 05/12/23 08:10 Laboratory: Laboratory Results - last 24 hr 05/11/23 18:45: WBC 9.7, RBC 4.79, Hgb 13.8, Hct 41.7, MCV 87.1, MCH 28.8, MCHC 33.1, RDW Std Deviation 38.6, RDW Coeff of Sanjay 11.9, Plt Count 257, MPV 10.8, Immature Gran % (Auto) 0.300, Neut % (Auto) 68.9, Lymph % (Auto) 21.0, [place] % (Auto) 5.9, Eos % (Auto) 3.5, Baso % (Auto) 0.4, Absolute Neuts (auto) 6.7, Absolute Lymphs (auto) 2.03, Nucleated RBC % 0, PT 12.9, INR 1.0, APTT 28.8, Sodium 134 L, Potassium 4.0, Chloride 100, Carbon Dioxide 27.0, Anion Gap 7, BUN14, Creatinine 0.94, Estim Creat Clear Calc 71.00, Est GFR (MDRD) Af Amer 77, Est GFR (MDRD) Non-Af 63, BUN/Creatinine Ratio 14.8, Glucose 452 H*, Calcium 8.7, Total Bilirubin 0.50, Direct Bilirubin 0.11, AST 17, ALT 26, Alkaline Phosphatase 72, Total Protein 7.3, Albumin 3.6, Globulin 3.7 05/11/23 22:15: POC Glucose 212 H 05/11/23 23:50: Hgb 14.8, Hct 43.6 05/11/23 23:59: POC Glucose 142 H 05/12/23 05:14: POC Glucose 260 H 05/12/23 08:10: Sodium 136, Potassium 4.0, Chloride 106, Carbon Dioxide 26.0, Anion Gap 4 L, BUN 10, Creatinine 0.64, Estim Creat Clear Calc 102.66, Est GFR (MDRD) Af Amer 121, Est GFR (MDRD) Non-Af 100, BUN/Creatinine Ratio 15.7, Glucose 250 H, Calcium 8.1 L 05/12/23 10:07: POC Glucose 290 H 05/12/23 12:31: POC Glucose 245 H Microbiology: Microbiology 05/11/23 19:55 Stool Stool Occult Blood (HUAN) - Final Occult Blood Positive Radiography Diagnostic Testing: Radiology Impression Abdomen/Pelvis CT 05/11/23 18:16 IMPRESSION: Descending colitis. No bowel obstruction. Nonvisualized appendix with no secondary signs of acute appendicitis. Status post cholecystectomy, otherwise unremarkable abdominal viscera. Electronically Signed: Nydia Reilly MD at 19:56 EDT Reading Location ID and State: [facility] / [place] , Service support , D/C Instructions Discharge Diet: Low fat / Low cholesterol and 1800 Calorie Control Diet Discharge Activity: Return to Normal Activity Return to work on: 05/13/23 Meaningful Use Info Meaningful Use Diagnoses (Choose all that apply): None applicable Discharge Plan Admission Admit Date/Time: 05/11/23 22:09 Primary Reason for Your Visit: rectal bleeding Attending Provider: Mabel Ortiz Primary Care Provider: Felicita Hill Consulting Providers: Alek Leon Discharge Orders/Prescriptions Prescriptions: New dicyclomine 10 mg Capsule 10 mg PO TIDAC PRN (Reason: abdominal pain/Cramping) Qty: 90 0RF Continued calcium carbonate 200 mg calcium (500 mg)-vitamin D3 400 unit tablet 200 mg (500 mg) -400 unit tablet 1 tab PO BID (DME) insulin syringe-needle U-100 [BD Insulin Syringe Ultra-Fine] 0.3 mL 31 gauge x 5/16 syringe See Rx Instructions .ROUTE .MEDSUPPLY Qty: 120 8RF Rx Instructions: 4 times daily (DME) FreeStyle Abhinav 2 Sensor Kit See Rx Instructions .Route Qty: 2 6RF Rx Instructions: As directed albuterol sulfate [Ventolin HFA] 90 mcg/actuation HFA aerosol inhaler 2 puff inhalation Q6H PRN (Reason: shortness of breath or wheezing) bupropion HCl [Wellbutrin SR] 150 mg tablet sustained-release 12 hr 150 mg PO DAILY (DME) insulin syringe-needle U-100 [BD Insulin Syringe Ultra-Fine] 0.3 mL 31 gauge x 5/16 syringe See Rx Instructions .Route Qty: 200 6RF Rx Instructions: 4 times per day aspirin 81 MG tablet 81 mg PO DAILY@0800 0RF meclizine 25 MG tablet 25 mg PO TID PRN PRN (Reason: Dizziness) ondansetron 4 mg tablet,disintegrating 4 mg PO Q6H PRN (Reason: nausea and vomiting) Qty: 12 0RF fluticasone propion-salmeterol 250-50 mcg/dose blister with device 1 ea INHALATION BID PRN (Reason: shortness of breath or wheezing) trazodone 100 mg tablet 200 mg PO QHS insulin glargine [Lantus U-100 Insulin] 100 unit/mL solution 40 unit subcut QHS omeprazole 40 mg capsule,delayed release(DR/EC) 40 mg PO DAILY Qty: 90 1RF oxybutynin chloride 10 mg tablet extended release 24hr 10 mg PO DAILY Qty: 90 1RF duloxetine 30 mg capsule,delayed release(DR/EC) 30 mg PO BID Qty: 180 1RF nitroglycerin 0.4 mg tablet, sublingual 0.4 mg SUBLINGUAL Q5-15M PRN (Reason: chest pain) Qty: 25 5RF Rx Instructions: until response; do not exceed 3 doses per episode (DME) lancets [Comfort EZ Lancets] 28 gauge misc See Rx Instructions .Route Qty: 100 5RF Rx Instructions: 4x/day rosuvastatin 40 mg tablet 40 mg PO DAILY Qty: 90 3RF anastrozole 1 mg tablet 1 mg PO DAILY Qty: 90 3RF carvedilol 6.25 mg tablet 6.25 mg PO BID Qty: 180 3RF insulin aspart U-100 [Novolog U-100 Insulin aspart] 100 unit/mL solution 20 unit subcut TID Qty: 20 6RF (DME) Accu-Chek Guide test strips Strip See Rx Instructions .Route Qty: 100 12RF Rx Instructions: test tid isosorbide mononitrate 60 mg tablet extended release 24 hr 60 mg PO DAILY Qty: 90 3RF Referrals / Follow Up: Felicita Hill DO [Primary Care Provider] - Within 2 Weeks FriendEfraín DO [Med Staff - Active Staff] - See Referral Note (Call tomorrowto schedule an appointment to be seen within the next 2 to 3 months) Disposition Disposition (needs filled in before D/C Order can be placed): Home, Self Care Charges/Coding Visit Charges Inpatient E&M: 99055 Disch Hosp 05/12/23 0889 <Electronically signed by Mabel Ortiz DO> Cosigner Signature (if applicable): CC: Dr. Mabel Ortiz DO; Felicita Hill DO~ Signed [facility] Work Phone: Evaluation note* Diagnosis Onset Date Resolution Status Anxiety and depression chron ic Asthma chronic Essential (primary) hypertension chronic Obesity chronic Carcinoma in situ, breast, ductal chronic Osteopenia chronic Carcinoma in situ, breast, ductal chronic Osteopenia chronic Essential (primary) hypertension chronic History of coronary artery stent placement October 10, 2018 chronic Hyperlipidemia [facility] Work Phone: Evaluation note* Diagnosis Onset Date Resolution Status Anxiety and depression chron ic Asthma chronic Essential (primary) hypertension chronic Obesity chronic Carcinoma in situ, breast, ductal chronic Osteopenia chronic Carcinoma in situ, breast, ductal chronic Osteopenia chronic Essential (primary) hypertension chronic History of coronary artery stent placement October 10, 2018 chronic Hyperlipidemia chronic Anxiety and depression chron ic Essential (primary) hypertension chronic Polyarthropathy chronic Type 2 diabetes mellitus chr onic Urinary incontinence [facility] Work Phone: Evaluation note* Diagnosis Onset Date Resolution Status Anxiety and depression chron ic Essential (primary) hypertension chronic Polyarthropathy chronic Type 2 diabetes mellitus chr onic Bleeding skin mole noneactiv e Essential (primary) hypertension chronic Hyperlipidemia chronic Obesity chronic Type 2 diabetes mellitus chr onic Carcinoma in situ, breast, ductal chronic Osteopenia chronic Anxiety and depression chron ic Essential (primary) hypertension chronic Polyarthropathy chronic Type 2 diabetes mellitus chr onic Carpal tunnel syndrome nonea [facility] Work Phone: Evaluation note* Diagnosis Onset Date Resolution Status Anxiety and depression chron ic Essential (primary) hypertension chronic Polyarthropathy chronic Type 2 diabetes mellitus chr onic Bleeding skin mole noneactiv e Essential (primary) hypertension chronic Hyperlipidemia chronic Obesity chronic Type 2 diabetes mellitus chr onic Carcinoma in situ, breast, ductal chronic Osteopenia chronic Anxiety and depression chron ic Essential (primary) hypertension chronic Polyarthropathy chronic Type 2 diabetes mellitus chr onic Carpal tunnel syndrome nonea ctive De Quervain's tenosynovitis, left acute Rheumatoid arthritis flare a cute Trigger finger of left hand acute Trigger finger, right ring finger acute Chest pain acute Hypersomnolence acute Essential (primary) hypertension chronic History of coronary artery stent placement October 10, 2018 chronic Hyperlipidemia [facility] Work Phone: Evaluation note* Diagnosis Onset Date Resolution Status Essential (primary) hypertension chronic Hyperlipidemia chronic Obesity chronic Type 2 diabetes mellitus chr onic Carcinoma in situ, breast, ductal chronic Osteopenia chronic Anxiety and depression chron ic Essential (primary) hypertension chronic Polyarthropathy chronic Type 2 diabetes mellitus chr onic Carpal tunnel syndrome nonea ctive De Quervain's tenosynovitis, left acute Rheumatoid arthritis flare a cute Trigger finger of left hand acute Trigger finger, right ring finger acute Chest pain acute Hypersomnolence acute Essential (primary) hypertension chronic History of coronary artery stent placement October 10, 2018 chronic Hyperlipidemia chronic Obesity acute Polyneuropathy due to type 2 diabetes mellitus chronic Type 2 diabetes mellitus chr [facility] Work Phone: Evaluation note* Diagnosis Onset Date Resolution Status Sleep concern noneactive GERD (gastroesophageal reflux disease) acute Strep pharyngitis acute Essential (primary) hypertension chronic Type 2 diabetes mellitus chr onic Carcinoma in situ, breast, ductal chronic Osteopenia chronic Carcinoma in situ, breast, ductal chronic Osteopenia [facility] Work Phone: Evaluation note* Diagnosis Onset Date Resolution Status GERD (gastroesophageal reflux disease) acute Strep pharyngitis acute Essential (primary) hypertension chronic Type 2 diabetes mellitus chr onic Carcinoma in situ, breast, ductal chronic Osteopenia chronic Carcinoma in situ, breast, ductal chronic Osteopenia chronic Obesity acute Essential (primary) hypertension chronic Hyperlipidemia chronic Type 2 diabetes mellitus chr onic Essential (primary) hypertension chronic History of coronary artery stent placement October 10, 2018 chronic Hyperlipidemia chronic [facility] Work Phone: Evaluation note* Diagnosis Onset Date Resolution Status Type 2 diabetes mellitus chr onic Obesity chronic Type 2 diabetes mellitus chr [facility] Work Phone: Evaluation note* Diagnosis Onset Date Resolution Status Type 2 diabetes mellitus chr onic Obesity chronic Type 2 diabetes mellitus chr onic Closed fracture of distal end of left radius noneactive [facility] Work Phone: Evaluation note* Diagnosis Onset Date Resolution Status Obesity chronic Type 2 diabetes mellitus chr onic Closed fracture of distal end of left radius noneactive Fracture of left distal radius acute Carcinoma in situ, breast, ductal chronic Osteopenia chronic Fracture of left distal radius acute Fracture of left distal radius acute Essential (primary) hypertension chronic Obesity chronic Polyneuropathy due to type 2 diabetes mellitus chronic Type 2 diabetes mellitus chr onic Bright red blood per rectum acute Colitis acute GI bleeding acute Hyperglycemia acute Essential (primary) hypertension chronic Type 2 diabetes mellitus chr [facility] Work Phone: Evaluation note* Diagnosis Onset Date Resolution Status Obesity chronic Closed fracture of distal end of left radius noneactive Fracture of left distal radius acute Carcinoma in situ, breast, ductal chronic Osteopenia chronic Fracture of left distal radius acute Fracture of left distal radius acute Obesity chronic Polyneuropathy due to type 2 diabetes mellitus chronic Bright red blood per rectum resolved GI bleeding resolved Hyperglycemia resolved 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 [facility] Work Phone: Evaluation note* Diagnosis Onset Date Resolution Status Obesity chronic Closed fracture of distal end of left radius noneactive Fracture of left distal radius acute Carcinoma in situ, breast, ductal chronic Osteopenia chronic Fracture of left distal radius acute Fracture of left distal radius acute Obesity chronic Polyneuropathy due to type 2 diabetes mellitus chronic Bright red blood per rectum resolved GI bleeding resolved Hyperglycemia resolved 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 History of coronary artery stent placement October 10, 2018 chronic Hyperlipidemia chronic [facility] Work Phone: Evaluation note* Diagnosis Onset Date Resolution Status Carcinoma in situ, breast, ductal chronic Osteopenia chronic [facility] Work Phone: Evaluation note* Diagnosis Chest wall pain- Primary Painful respiration History of left breast cancer Family history of breast cancer Family history of malignant neoplasm of breast documented in this encounter [facility] Discharge instructionsAmbulatory Orders* Orthopedics Location: None Selected * Rheumatology Location: None Selected [facility] Work Phone: Summary Purpose Family History No Family History Records Found Relationship Condition Age at Onset Recorded Date/T ivette sister Cardiac disease Unknown Malignant neoplasm of breast Unknown Asthma Unknown Depression Unknown mother Diabetes mellitus Unknown Cardiac disease Unknown Arthritis Unknown father Diabetes mellitus Unknown brother Arthritis Unknown Advance Directives No Advanced Directives Records Found Advance Directive Response Recorded Date/ Time Living Will Yes August 14 6:23pm Power of Mooner Yes August 14, 2021 6:23pm Advance Directive Response Recorded Date/ Time Living Will Yes August 14 5:23pm Power of Mooner Yes August 14, 2021 5:23pm Advance Directive Response Recorded Date/ Time Living Will No February 15, 2023 9:24am Power of Mooner No February 15 9:24am Advance Directive Response Recorded Date/ Time Living Will Yes February 19, 2023 12:13pm Power of Mooner Yes February 19 12:13pm Advance Directive Response Recorded Date/ Time Name of Medical Power of Mooner SPOUSE February 19, 2023 12:13pm Name of Medical Power of Mooner TELLO REICH May 11, 2023 11:24pm Living Will Yes May 11 11:24pm Power of Mooner Yes May 11, 2023 11:24pm Advance Directive Response Recorded Date/ Time Living Will Yes May 11 10:24pm Power of Mooner Yes May 11, 2023 10:24pm Advance Directive Response Recorded Date/ Time Name of Medical Power of Mooner . November 04, 2023 9:39am Living Will Yes November 04, 2023 9:39am Power of Mooner Yes November 03 9:39am Chief Complaint and Reason for Visit Chief Complaint BLOOD WORK F/U 2 M FU chest pain 6MO NO LABS ONC/HEM 9 m fu (MOVED FROM 08/14) SCREENING 3 M FU Reason for Visit Anxiety and depressi on Asthma Essential (primary) hypertension Obesity Carcinoma in situ, breast, ductal Osteopenia Carcinoma in situ, breast, ductal Osteopenia Essential (primary) hypertension History of coronary artery stent placement Hyperlipidemia Chief Complaint BLOOD WORK F/U 2 M FU chest pain 6MO NO LABS ONC/HEM 9 m fu (MOVED FROM 08/14) SCREENING 3 M FU EORDER 3 M FU Reason for Visit Anxiety and depressi on Asthma Essential (primary) hypertension Obesity Carcinoma in situ, breast, ductal Osteopenia Carcinoma in situ, breast, ductal Osteopenia Essential (primary) hypertension History of coronary artery stent placement Hyperlipidemia Anxiety and depression Essential (primary) hypertension Polyarthropathy Type 2 diabetes mellitus Urinary incontinence Chief Complaint 3 M FU 3 M FU 6 MO - NO LABS -REVIEW MAMMO/DEXA EORDER 3 M FU Reason for Visit Anxiety and depressi on Essential (primary) hypertension Polyarthropathy Type 2 diabetes mellitus Bleeding skin mole Essential (primary) hypertension Hyperlipidemia Obesity Type 2 diabetes mellitus Carcinoma in situ, breast, ductal Osteopenia Anxiety and depression Essential (primary) hypertension Polyarthropathy Type 2 diabetes mellitus Carpal tunnel syndrome Chief Complaint 3 M FU 3 M FU 6 MO - NO LABS -REVIEW MAMMO/DEXA EORDER 3 M FU Bilat wrist xray 6 M FU CO SOB CO SOB 3 M FU Reason for Visit Anxiety and depressi on Essential (primary) hypertension Polyarthropathy Type 2 diabetes mellitus Bleeding skin mole Essential (primary) hypertension Hyperlipidemia Obesity Type 2 diabetes mellitus Carcinoma in situ, breast, ductal Osteopenia Anxiety and depression Essential (primary) hypertension Polyarthropathy Type 2 diabetes mellitus Carpal tunnel syndrome De Quervain's tenosynovitis, left Rheumatoid arthritis flare Trigger finger of left hand Trigger finger, right ring finger Chest pain Hypersomnolence Essential (primary) hypertension History of coronary artery stent placement Hyperlipidemia Chief Complaint 3 M FU 6 MO - NO LABS -REVIEW MAMMO/DEXA EORDER 3 M FU Bilat wrist xray 6 M FU CO SOB CO SOB 3 M FU HYPERSOMNIA Reason for Visit Essential (primary) hypertension Hyperlipidemia Obesity Type 2 diabetes mellitus Carcinoma in situ, breast, ductal Osteopenia Anxiety and depression Essential (primary) hypertension Polyarthropathy Type 2 diabetes mellitus Carpal tunnel syndrome De Quervain's tenosynovitis, left Rheumatoid arthritis flare Trigger finger of left hand Trigger finger, right ring finger Chest pain Hypersomnolence Essential (primary) hypertension History of coronary artery stent placement Hyperlipidemia Obesity Polyneuropathy due to type 2 diabetes mellitus Type 2 diabetes mellitus Chief Complaint 6 M FU CO SOB CO SOB 3 M FU HYPERSOMNIA Sleep problems 3 M FU PAIN - COPY PCP A1C Check Reason for Visit Chest pain Hypersomnolence Essential (primary) hypertension History of coronary artery stent placement Hyperlipidemia Obesity Polyneuropathy due to type 2 diabetes mellitus Type 2 diabetes mellitus Sleep concern GERD (gastroesophageal reflux disease) Strep pharyngitis Essential (primary) hypertension Chief Complaint Sleep problems 3 M FU PAIN - COPY PCP A1C Check E ORDER ONC/HEM 6 MO - LABS Reason for Visit Sleep concern GERD (gastroesophageal reflux disease) Strep pharyngitis Essential (primary) hypertension Type 2 diabetes mellitus Carcinoma in situ, breast, ductal Osteopenia Carcinoma in situ, breast, ductal Osteopenia Chief Complaint 3 M FU PAIN - COPY PCP A1C Check E ORDER ONC/HEM 6 MO - LABS PAIN- COPY PCP FU 6 M FU Reason for Visit GERD (gastroesophage al reflux disease) Strep pharyngitis Essential (primary) hypertension Type 2 diabetes mellitus Carcinoma in situ, breast, ductal Osteopenia Carcinoma in situ, breast, ductal Osteopenia Obesity Essential (primary) hypertension Hyperlipidemia Type 2 diabetes mellitus Essential (primary) hypertension History of coronary artery stent placement Hyperlipidemia Chief Complaint 3 M FU chest pain 1 M FU left wrist injury Reason for Visit Type 2 diabetes radha itus Obesity Type 2 diabetes mellitus Chief Complaint 3 M FU chest pain 1 M FU left wrist injury Urge incontinence LEFT WRIST Xray cast room Reason for Visit Type 2 diabetes radha itus Obesity Type 2 diabetes mellitus Closed fracture of distal end of left radius Chief Complaint 1 M FU left wrist injury Urge incontinence LEFT WRIST Xray cast room LEFT WRIST Xray room 1 6MO REVEW MAMMO -NO LABS- LEFT WRIST Xray cast room LEFT WRIST Cast Room FRACTURE OF LEFT DISTAL RADIUS. RX HERE 3 M FU ACUTE LOWER GI BLEED ACUTE LOWER GI BLEED ACUTE LOWER GI BLEED ACUTE LOWER GI BLEED Reason for Visit Obesity Type 2 diabetes mellitus Closed fracture of distal end of left radius Fracture of left distal radius Carcinoma in situ, breast, ductal Osteopenia Fracture of left distal radius Fracture of left distal radius Essential (primary) hypertension Obesity Polyneuropathy due to type 2 diabetes mellitus Type 2 diabetes mellitus Bright red blood per rectum Colitis GI bleeding Hyperglycemia Essential (primary) hypertension Type 2 diabetes mellitus Chief Complaint 1 M FU left wrist injury Urge incontinence LEFT WRIST Xray cast room LEFT WRIST Xray room 1 6MO REVEW MAMMO -NO LABS- LEFT WRIST Xray cast room LEFT WRIST Cast Room 3 M FU ACUTE LOWER GI BLEED ACUTE LOWER GI BLEED ACUTE LOWER GI BLEED ACUTE LOWER GI BLEED LEFT WRIST RM 2 FRACTURE OF LEFT DISTAL RADIUS. 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 RX HERE SCREENING 1 Y FU H FU 6 MO - NO LABS Reason for Visit Fracture of distal e nd of radius with nonunion History of coronary artery stent placement Hyperlipidemia Ischemic colitis Chronic constipation Carcinoma in situ, breast, ductal Osteopenia Chief Complaint 6 MO - NO LABS ABD Reason for Visit Carcinoma in situ, b reast, ductal Osteopenia Additional Source Comments INFORMATION SOURCE (unrecogn ized section and content) DATE CREATED AUTHOR 01/26/2018 [facility] DATE CREATED AUTHOR AUTHOR'S ORGANIZ ATION 06/02/2024 [facility] DATE CREATED AUTHOR AUTHOR'S ORGANIZ ATION 10/14/2024 [facility] Goals (unrecognized section and content) Goals may be documented in a n alternate sectionGoals may be documented in an alternate sectionGoals may be documented in an alternate sectionGoals may be documented in an alternate sectionGoals may be documented in an alternate sectionGoals may be documented in an alternate sectionGoals may be documented in an alternate sectionGoals may be documented in an alternate sectionGoals may be documented in an alternate sectionGoals may be documented in an alternate sectionGoals may be documented in an alternate sectionGoals may be documented in an alternate section Care Teams (unrecognized sec tion and content) Team Status: Active Member Role Status Dates Dr. Richie Bal MD Family Provider Active Felicita Hill DO Primary Care Provider Active Team Status: Inactive Member Role Status Dates Dr. Richie Bal MD Primary Care Provider, Refer ring Provider Active Darrius Torrez DIRECTOR OF GUIDANCE, DIRECTOR OF GUIDANCE-C Attending Provider Active Team Status: Inactive Member Role Status Dates Dr. Richie Bal MD Primary Care Provider, Refer ring Provider Active Dr. Adan Tse MD Attending Provider Active Team Status: Inactive Member Role Status Dates Dr. Richie Bal MD Primary Care P rovider, Attending Provider, Referring Provider Active Team Status: Active Member Role Status Dates Dr. Richie Bal MD Primary Care Provider Active Darrius Torrez DIRECTOR OF GUIDANCE, DIRECTOR OF GUIDANCE-C Referring Provider, Other Provide r Active Dr. Oskar Olsen MD Attending Provider Active Team Status: Inactive Member Role Status Dates Dr. Richie Bal MD Referring Provider Active Dr. Adan Tse MD Attending Provider Active Felicita Hill DO Primary Care Provider Active Team Status: Inactive Member Role Status Dates Dr. Richie Bal MD Primary Care Provider, Refer ring Provider Active Greer Barroso DIRECTOR OF GUIDANCE, DIRECTOR OF GUIDANCE-C Attending Provider Active Team Status: Inactive Member Role Status Dates Dr. Richie Bal MD Primary Care Provider Active Darrius Torrez DIRECTOR OF GUIDANCE, DIRECTOR OF GUIDANCE-C Attending Provider, Referring Pro vider Active Team Status: Inactive Member Role Status Dates Felicita Hill DO Primary Care Provider Active Dr. Clare Davidson MD Attending Provider, Referring Provider Active Team Status: Inactive Member Role Status Dates Dr. Agata Ricardo MD Attending Provider Active Felicita Hill DO Primary Care Provider Active Team Status: Active Member Role Status Dates Dr. Richie Bal MD Primary Care Provider, Famil y Provider Active Dr. Agata Ricardo MD Attending Provider Active Anup Butt DIRECTOR OF GUIDANCE, DIRECTOR OF GUIDANCE-C Referring Provider Active Team Status: Inactive Member Role Status Dates Felicita Hill DO Primary Care Provider Active Dr. Agata Ricardo MD Attending Provider, Referrin g Provider Active Team Status: Inactive Member Role Status Dates Dr. Richie Bal MD Referring Provider Active Ania Mccall DIRECTOR OF GUIDANCE, DIRECTOR OF GUIDANCE-C Attending Provider Active Felicita Hill DO Primary Care Provider Active Team Status: Inactive Member Role Status Dates Felicita Hill , DO Primary Care Provider, Referring Provider Active Dr. Adan Tse MD Attending Provider Active Team Status: Inactive Member Role Status Dates Felicita Hill , DO Primary Care Provider Active Ania Mccall DIRECTOR OF GUIDANCE, DIRECTOR OF GUIDANCE-C Attending Provider Active Team Status: Inactive Member Role Status Dates Felicita Hill , DO Primary Care Provider Active Dr. Bradly Pastrana DO Attending Provider, Emergency P kirstin Active Team Status: Inactive Member Role Status Dates Felicita Hill DO Primary Care Provider Active Dr. Renae Marinelli MD Emergency Provider Active Team Status: Inactive Member Role Status Dates Felicita Hill , DO Primary Care Provider, Referring Provider Active Bella SIMPSON PA Attending Provider Active Team Status: Inactive Member Role Status Dates Felicita Hill DO Primary Care Provider Active Dr. Oskar Olsen MD Attending Provider Active Team Status: Inactive Member Role Status Dates Felicita Hill DO Primary Care Provider Active Dr. Renae Marinelli MD Attending Provider, Emergency Provider Active Team Status: Inactive Member Role Status Dates Felicita Hill DO Primary Care Provi zuri, Attending Provider, Referring Provider Active Team Status: Inactive Member Role Status Dates Felicita Hill , DO Primary Care Provider, Referring Provider Active Dr. Agata Ricardo MD Attending Provider Active Team Status: Active Member Role Status Dates Felicita Hill DO Primary Care Provider Active Dr. Alek Mims DO Attending Provid er, Referring Provider, Other Provider Active Team Status: Inactive Member Role Status Dates Felicita Hill DO Primary Care Provider, Referring Provider Active Dr. Alek Mims DO Attending Provider Active Team Status: Inactive Member Role Status Dates Felicita Hill , DO Primary Care Provider, Referring Provider Active Chan SIMPSON PA Attending Provider Active Team Status: Active Member Role Status Dates Felicita Hill DO Primary Care Provider Active Dr. Renae Marinelli MD Emergency Provider Active Dr. Alek Leon MD Admit Provider, Attending Provider, Other Provider Active Team Status: Active Member Role Status Dates Felicita Hill DO Primary Care Provider Active Dr. Renae Marinelli MD Emergency Provider Active Dr. Alek Leon MD Admit Provider, Other Provide r Active Dr. Efraín Vila DO Attending Provider Active Team Status: Active Member Role Status Dates Felicita Hill DO Primary Care Provider Active Dr. Efraín Vila , Attending Provider Active Team Status: Active Member Role Status Dates Felicita Hill DO Primary Care Provider Active Dr. Renae Marinelli MD Emergency Provider Active Dr. Alek Leon MD Admit Provider, Other Provide r Active Dr. Mabel Ortiz , Attending Provider, Other Provide r Active Team Status: Inactive Member Role Status Dates Felicita Hill DO Primary Care Provider Active Dr. Alek Mims , Attending Provider, Referring Provider Active Team Status: Active Member Role Status Dates Felicita Hill DO Primary Care Provider Active Dr. Alek Mims , Attending Provider, Referring Provider Active Team Status: Inactive Member Role Status Dates Felicita Hill DO Primary Care Provider Active Dr. Renae Marinelli MD Emergency Provider Active Dr. Alek Leon MD Admit Provider, Other Provide r Active Dr. Mabel Ortiz DO Attending Provider Active Team Status: Inactive Member Role Status Dates Felicita Hill DO Primary Care Provider Active WILTON Castro Attending Provider Active Team Status: Inactive Member Role Status Dates Dr. Richie Bal MD Referring Provider Active Dr. Oskar Olsen MD Attending Provider Active Felicita Hill DO Primary Care Provider Active Team Status: Inactive Member Role Status Dates Felicita Hill DO Primary Care Provider, Referring Provider Active Dr. Efraín Vila , Attending Provider Active Team Status: Active Member Role Status Dates Dr. Richie Bal MD Family Provider Active Gaurav Deshpande MD Primary Care Provider Active Team Status: Inactive Member Role Status Dates Dr. Renae Marinelli MD Emergency Provider Active Gaurav Deshpande MD Primary Care Provider Active [employer] Relationship Specialty Start Date End Date Richie Bal MD PCP - General Internal Medicine 07/07/19 Aquiles Ortiz MD [address] [place] [address] Physician Radiation Oncology 12/15/18 Kimberlyn Coyle RN Specialty Warehouse Distribution Associate Oncology 03/01/19 Source Comments (unrecognize d section and content) In the event this informatio n is protected by the Federal Confidentiality of Alcohol and Drug Abuse Patient Records regulations: The Federal rules restrict any use of the information to criminally investigate or prosecute any alcohol or drug abuse patient.[facility] Reason for Visit (unrecogniz ed section and content) Reason Comments New Patient FOR RECORDS PERTAINING TO PATIENTS WHO ARE OR HAVE BEEN ENROLLED IN A CHEMICAL DEPENDENCY/SUBSTANCEABUSE PROGRAM, SOME INFORMATION MAY BE OMITTED. This clinical summary was aggregated from multiple sources. Caution should be exercised in using it in the provision of clinical care. This summary normalizes information from multiple sources, and as a consequence, information in this document may materially change the coding, format and clinical context of patient data. In addition, data may be omitted in some cases. CLINICAL DECISIONS SHOULD BE BASED ON THE PRIMARY CLINICAL RECORDS. [facility]. provides no warranty or guarantee of the accuracy or completeness of information in this document.
[2025-02-20] MEDS: Insulin Glargine-YFGN 100 UNIT/ML Pen 15 UNIT SC (21:30)
[2025-02-21 04:05] VITALS: BP 122/75; PULSE 63; RESP 14; TEMP 36.9; O2SAT 97
[2025-02-21 05:50] VITALS: BP 142/67; PULSE 58; RESP 16; TEMP 36.7; O2SAT 98
[2025-02-21] MEDS: Aspirin E.C. 81 MG Tablet PO (05:55)
--- NOTE | 2025-02-21 05:55 | EKG12_ITS ---
Test Reason : AM EKG Blood Pressure : */* mmHG Vent. Rate : 60 BPM Atrial Rate : 60 BPM P-R Int : 158 ms QRS Dur : 86 ms QT Int : 442 ms P-R-T Axes : 44 23 27 degrees QTcB Int : 442 ms Normal sinus rhythm Normal ECG When compared with ECG of 20-Feb-2025 21:31, MANUAL COMPARISON REQUIRED DATA IS UNCONFIRMED Confirmed by Fred Saldana ([id number]), news videotape editor ALEJANDRINA BRYAN ([id number]) on 02/22/2025 11:34:23 AM Referred By: BRYON Confirmed By: Fred Saldana
[2025-02-21 06:26] LABS: Hematocrit 39.5 % (37-47); Hemoglobin 13.4 g/dL (12.0-15.0); Immature Granulocytes Count 0.020 X10^3/uL (0.0-0.0); Mean Corp Hgb Conc 33.9 g/dL (32-36); Mean Corpuscular Volume 84.2 fL (81-99); Mean Platelet Vol. 11.0 fl (6.2-12.0); NRBC Flagged by Analyzer 0 % (0-5); Platelet Count 235 K/mm3 (150-450); RBC Distribution Width CV 12.7 % (11.6-14.6); RBC Distribution Width SD 38.5 fl (35.1-43.9); Red Blood Count 4.69 M/mm3 (4.2-5.4); White Blood Count 6.7 K/mm3 (4.4-11.0)
[2025-02-21 07:02] LABS: Anion Gap 12 (5-15); BUN 11 mg/dL (4-19); BUN/Creat Ratio 12.5 RATIO (10-20); Calcium,Total 8.9 mg/dL (7.6-11.0); Carbon Dioxide 21.6 mmol/L (21.0-32.0); Chloride 105 mmol/L (98-108); Cholesterol 134 mg/dL (<=200); Estimated Creatinine Clearance 61.16 ml/min (50-250); Glucose 143 mg/dL (70-99); Low Density Lipoprotein Calc. 46 mg/dL; Potassium 4.0 mmol/L (3.3-5.1); Triglycerides 166 mg/dL; Very Low Density Lipoprotein 33 mg/dL (5-40); cholesterol:hdl ratio screen 2.44
--- NOTE | 2025-02-21 08:01 | PCM.PN.CARD ---
Subjective Subjective Patient is resting comfortably come position in bed. She has had no recurrence of her chest symptoms. Opponent's were less than 6 x 3. Telemetry shows normal sinus rhythm at 62 bpm no ectopy. Patient is scheduled for pharmacologic nuclear stress test. Objective Data Vital Signs: Vital Signs Temp Pulse Resp BP Pulse Ox O2 Del Method 98.1 F 58 L 16 142/67 H 98 Room Air 02/21/25 05:50 02/21/25 05:50 02/21/25 05:50 02/21/25 05:50 02/21/25 05:50 02/21/25 05:50 Oxygen Delivery Method Room Air Weight: 169 lb 5.04 oz Body Mass Index (BMI) 36.6 Intake & Output: Intake and Output for Last 24 Hours 02/19/25 02/20/25 02/21/25 23:59 23:59 23:59 Intake Total 480 / 480 0 / 0 Output Total 0 / 0 Balance 480 / 480 0 / 0 Lab / Micro Data Attestation: I reviewed the patient's lab results. 02/21/25 05:22 02/21/25 05:22 Labs: Laboratory Results - last 24 hr 02/20/25 12:45: WBC 7.7, RBC 4.91, Hgb 14.0, Hct 41.7, MCV 84.9, MCH 28.5, MCHC 33.6, RDW Std Deviation 39.1, RDW Coeff of Sanjay 12.7, Plt Count 265, MPV 11.0, Immature Gran % (Auto) 0.300, Neut % (Auto) 62.3, Lymph % (Auto) 23.8, [place] % (Auto) 7.4, Eos % (Auto) 5.7 H, Baso % (Auto) 0.5, Absolute Neuts (auto) 4.8, Absolute Lymphs (auto) 1.84, Nucleated RBC % 0, PT 12.4, INR 0.9, APTT 25.6, Sodium 134, Potassium 4.7, Chloride 101, Carbon Dioxide 21.9, Anion Gap 12, BUN 12, Creatinine 0.94, Estim Creat Clear Calc 55.86, Est GFR (MDRD) Non-Af 68, BUN/Creatinine Ratio 12.3, Glucose 253 H, Calcium 9.5, Troponin T High Sens < 6 02/20/25 15:05: Troponin T Hi Sens 2 Hr < 6 02/20/25 18:24: Troponin T Hi Sens 4Hr < 6 02/20/25 21:22: POC Glucose 205 H 02/21/25 05:22: WBC 6.7, RBC 4.69, Hgb 13.4, Hct 39.5, MCV 84.2, MCH 28.6, MCHC 33.9, RDW Std Deviation 38.5, RDW Coeff of Sanjay 12.7, Plt Count 235, MPV 11.0, Immature Gran % (Auto) 0.300, Neut % (Auto) 55.9, Lymph % (Auto) 29.2, [place] % (Auto) 7.7, Eos % (Auto) 6.3 H, Baso % (Auto) 0.6, Absolute Neuts (auto) 3.8, Absolute Lymphs (auto) 1.96, Nucleated RBC % 0, Sodium 139, Potassium 4.0, Chloride 105, Carbon Dioxide 21.6, Anion Gap 12, BUN 11, Creatinine 0.84, Estim Creat Clear Calc 61.16, Est GFR (MDRD) Non-Af 77, BUN/Creatinine Ratio 12.5, Glucose 143 H, Calcium 8.9, Triglycerides 166, Cholesterol 134, LDL Cholesterol, Calc 46, VLDL Cholesterol 33, HDL Cholesterol 55, Cholesterol/HDL Ratio 2.44 02/21/25 05:54: POC Glucose 142 H Rhythm Strip Rhythm Strip: Sinus Rhythm Rate: 61 Cardiology Labs/Tests 02/20/25 12:45: WBC 7.7, RBC 4.91, Hgb 14.0, Hct 41.7, MCV 84.9, MCH 28.5, MCHC 33.6, Plt Count 265, MPV 11.0, Immature Gran % (Auto) 0.300, Neut % (Auto) 62.3, Lymph % (Auto) 23.8, [place] % (Auto) 7.4, Eos % (Auto) 5.7 H, Baso % (Auto) 0.5, Absolute Neuts (auto) 4.8, Nucleated RBC % 0, PT 12.4, INR 0.9, APTT 25.6, Sodium 134, Potassium 4.7, Chloride 101, Carbon Dioxide 21.9, Anion Gap 12, BUN 12, Creatinine 0.94, Est GFR (MDRD) Non-Af 68, BUN/Creatinine Ratio 12.3, Glucose 253 H, Calcium 9.5 02/21/25 05:22: WBC 6.7, RBC 4.69, Hgb 13.4, Hct 39.5, MCV 84.2, MCH 28.6, MCHC 33.9, Plt Count 235, MPV 11.0, Immature Gran % (Auto) 0.300, Neut % (Auto) 55.9, Lymph % (Auto) 29.2, [place] % (Auto) 7.7, Eos % (Auto) 6.3 H, Baso % (Auto) 0.6, Absolute Neuts (auto) 3.8, Nucleated RBC % 0, Sodium 139, Potassium 4.0, Chloride 105, Carbon Dioxide 21.6, Anion Gap 12, BUN 11, Creatinine 0.84, Est GFR (MDRD) Non-Af 77, BUN/Creatinine Ratio 12.5, Glucose 143 H, Calcium 8.9, Triglycerides 166, Cholesterol 134, VLDL Cholesterol 33, HDL Cholesterol 55, Cholesterol/HDL Ratio 2.44 Rhythm: EKG: ECHO: Stress Test: Cardiac Cath: PCI: CT Surgery: Holter monitor: EPS: PPM: CXR: Chest CT Scan: Radiography Diagnostic Testing: Radiology Impression Chest X-Ray 02/20/25 13:10 IMPRESSION: No acute process is identified in the chest. Reading Location: [facility] Physical Exam Const alert and oriented x3 HEENT normocephalic Eyes EOMs intact bilaterally Neck no JVD Resp normal respiratory effort and clear to auscultation bilaterally Cardio Rate: regular rate Rhythm: regular rhythm Heart Sounds: S1 normal and S2 normal; Negative for click, gallop or murmur Extremity no pedal edema Neuro Neuro Narrative: Alert and oriented x 3. Noted hearing deficit. Psych mental status grossly normal Assessment & Plan Assessment/Plan (1) CAD (coronary artery disease): QUALIFIERS: Coronary Disease-Associated Artery/Lesion type: [place] artery [place] vs. transplanted heart: [place] heart Associated angina: unspecified whether angina present Qualified Code(s): I25.10 - Atherosclerotic heart disease of [place] coronary artery without angina pectoris PLAN: Patient has known history of STEMI in 2019 with stents to the LAD. She also had moderate disease in the OM branch of the circumflex and the right coronary artery. Patient presented with exertional chest symptoms walking up the stairs yesterday. ECG did not show any acute ischemic changes and troponins were negative x 3. This is a similar presentation she had in the past when she had a negative pharmacologic nuclear stress test. 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 Which is a possibility as the etiology of the symptoms. The symptoms however did resolve with nitrates in the emergency department. A pharmacologic nuclear stress test is pending this morning. If this is negative the patient can be discharged home and follow-up with the [facility] in 4 to 6 weeks. PLAN: Plan 1. Pharmacologic nuclear stress test this morning. 2. If negative patient can be discharged home and follow-up with the [facility] 4 to 6 weeks. Charges/Coding Visit Charges Inpatient E&M: 13212 Subs Hosp L2
--- NOTE | 2025-02-21 14:22 | STRESSREP ---
Stress Test Report Pharmacologic myocardial perfusion stress test. 64-year-old lady with a history of chest pain Resting EKG demonstrates sinus rhythm with a rate of 62 bpm. Resting blood pressure is 122/82 mmHg. 0.4 mg of regadenoson was infused per usual protocol followed by rapid intravenous saline flush injection. Continuous EKG monitoring was performed. The maximum heart rate was 82 bpm which was 52 beats of max impacted heart rate the maximum workload was 1 metabolic equivalent. At rest there were no ST or T wave changes noted to suggest ischemia and at peak infusion nonspecific ST changes were noted which did not meet the criteria for ischemia. No clinical angina is noted. The final blood pressure was 138/80 mmHg. Myocardial perfusion protocol. 10.9 mCi of technetium 99m sestamibi was injected at rest. 0.4 mg of regadenoson was infused per usual protocol. At peak infusion 35 mCi of technetium 99m sestamibi was injected stress images were obtained stress and rest images were reconstructed and compared in the short axis vertical long and horizontal long axis. Gated images were also obtained. Perfusion SPECT analysis: Review of the stress images demonstrate normal uptake of tracer noted in all areas of the myocardium. The resting images similar demonstrated normal uptake of tracer noted in all areas of the myocardium. No areas of reversibility are noted to suggest ischemia and no previous infarct is noted. Gated SPECT analysis: The gated ejection fraction is 88%. Conclusion: Number pharmacologic myocardial perfusion stress test. Preserved ejection fraction.
--- NOTE | 2025-02-21 14:52 | PCM.DC.SUM ---
Providers Date of Admission: 02/20/25 Date of Discharge: 02/21/25 Primary Care Physician: Gaurav Deshpande MD Consultations 02/20/25 18:06 Consult: Cardiology Routine Consulting Provider: Fred Saldana Reason for Consult: Chest Pain EMERGENT Consult: No MD Notified: Yes Date Notified: 02/20/25 Time Notified: 16:46 Method of Notification: ED Physician Initiated Reason For Visit: chest pain Diagnosis Discharge Diagnosis (1) CAD (coronary artery disease): Status: Acute Code(s): I25.10 - Atherosclerotic heart disease of jackson coronary artery without angina pectoris Qualifiers: Coronary Disease-Associated Artery/Lesion type: [place] artery [place] vs. transplanted heart: jackson heart Associated angina: unspecified whether angina present Qualified Code(s): I25.10 - Atherosclerotic heart disease of [place] coronary artery without angina pectoris Medications at Discharge Home Medications aspirin 81 mg tablet,delayed release 81 mg PO DAILY@0800 10/12/18 meclizine 25 mg tablet 25 mg PO TID PRN PRN Dizziness 07/14/20 calcium carbonate 200 mg calcium (500 mg)-vitamin D3 400 unit tablet 1 tab PO BID 08/26/20 insulin syringe-needle U-100 0.3 mL 31 gauge x 5/16 (BD Insulin Syringe Ultra-Fine) #120 ea 11/24/21 omeprazole 40 mg capsule,delayed release 40 mg PO DAILY #90 caps 08/05/22 duloxetine 30 mg capsule,delayed release 30 mg PO BID #180 caps 08/07/22 lancets 28 gauge (Comfort EZ Lancets) #100 ea 09/03/22 bupropion HCl 150 mg tablet,12 hr sustained-release (Wellbutrin SR) 150 mg PO DAILY 02/04/23 ondansetron 4 mg disintegrating tablet 4 mg PO Q6H PRN nausea and vomiting #12 tabs 02/15/23 trazodone 100 mg tablet 200 mg PO QHS 02/19/23 insulin syringe-needle U-100 0.3 mL 31 gauge x 5/16 (BD Insulin Syringe Ultra-Fine) #200 ea 05/07/23 dicyclomine 10 mg capsule 10 mg PO TIDAC PRN abdominal pain/Cramping #90 caps 05/12/23 lubiprostone 8 mcg capsule (Amitiza) 8 mcg PO BID #60 caps 06/23/23 blood-glucose meter (Accu-Chek Guide Glucose Meter) #1 ea 07/01/23 blood sugar diagnostic (Accu-Chek Guide test strips) #100 ea 08/30/23 flash glucose sensor (FreeStyle To 2 Sensor kit) #2 ea 09/08/23 rosuvastatin 40 mg tablet 40 mg PO DAILY cholestrol #90 tabs 09/09/23 metoclopramide HCl 5 mg tablet 5 mg PO QAC #90 tabs 04/20/24 insulin glargine 100 unit/mL subcutaneous solution (Lantus U-100 Insulin) 20 unit subcut BID 05/25/24 isosorbide mononitrate 60 mg tablet,extended release 24 hr 60 mg PO DAILY #90 tabs 05/25/24 prednisone 20 mg tablet 40 mg PO DAILY PRN 05/25/24 carvedilol 6.25 mg tablet 6.25 mg PO BID #180 tabs 11/13/24 nitroglycerin 0.4 mg sublingual tablet 0.4 mg sublingual Q5-15M PRN chest pain #25 tabs 01/05/25 insulin aspart U-100 100 unit/mL subcutaneous solution (Novolog U-100 Insulin aspart) 10 unit subcut TID 02/20/25 Hospital Course Operations None Procedures Stress test Summary of Care Provided Minutes Spent on Discharge: 47 Hospital Course: Patient is a 64-year-old female with past medical history as outlined including CAD who was admitted to the ED on 02/20/2025 with a complaint of chest pain and shortness of breath. The pain started about 20 minutes prior to admission. It was worsened by exertion as she was going up the steps. She took a sublingual nitroglycerin with no relief. She has a history of CAD s/p stents and had her last stents placed 6 years ago. She had had a stress test since then. In the ED she was given aspirin and nitro and chest pain subsequently resolved. EKG showed no acute ST changes and chest x-ray showed no acute cardiopulmonary pathology. Troponins remain negative. She was therefore admitted to be managed for chest pain to rule out ACS. Cardiology was consulted and recommended a stress test in light of the negative troponins. She did have the stress test on 02/21/2025 which showed no evidence of ischemia. Patient was therefore discharged on 02/21/2025. She is to continue with her aspirin and Plavix as well as high intensity statin and follow-up with her PCP and cardiology within 1 to 2 weeks and 4 weeks respectively. Patient seen and examined prior to discharge. Her daughter was by her bedside. She had no active complaints and had an uneventful night. Chest pain had not recurred. Review of systems otherwise negative. Labs and vitals reviewed. Home medication reviewed and reconciled. Physical Exam Const alert, oriented x3 and no apparent distress General Appearance: cooperative and comfortable Exam Limitations: no limitations HEENT normocephalic, head/scalp atraumatic, hearing grossly normal bilaterally, moist oral mucous membranes and oropharynx normal Mouth: oral and palatal mucosa normal Eyes PERRL and EOMs intact bilaterally Neck no lymphadenopathy, supple and no JVD Resp normal respiratory effort, no retractions, no use of accessory muscles and clear to auscultation bilaterally Cardio regular rate, regular rhythm, S1 normal heart sound, S2 normal heart sound and no murmurs GI normal to inspection, nondistended, normoactive bowel sounds, soft to palpation and non-tender Extremity normal to inspection, full ROM and no clubbing, cyanosis or edema Skin no rashes or lesions noted Neuro oriented x3, CN's II-XII intact bilaterally, moves all extremities, no focal motor deficits and no sensory deficits noted Sensorium / Orientation: awake and alert Motor Exam: strength 5/5 throughout Psych affect normal Weight / BMI Weight Weight: 169 lb 5.04 oz Body Mass Index (BMI) 36.6 ABG / Lab / Microbiology Data 02/21/25 05:22 02/21/25 05:22 Laboratory: Laboratory Results - last 24 hr 02/20/25 15:05: Troponin T Hi Sens 2 Hr < 6 02/20/25 18:24: Troponin T Hi Sens 4Hr < 6 02/20/25 21:22: POC Glucose 205 H 02/21/25 05:22: WBC 6.7, RBC 4.69, Hgb 13.4, Hct 39.5, MCV 84.2, MCH 28.6, MCHC 33.9, RDW Std Deviation 38.5, RDW Coeff of Sanjay 12.7, Plt Count 235, MPV 11.0, Immature Gran % (Auto) 0.300, Neut % (Auto) 55.9, Lymph % (Auto) 29.2, [place] % (Auto) 7.7, Eos % (Auto) 6.3 H, Baso % (Auto) 0.6, Absolute Neuts (auto) 3.8, Absolute Lymphs (auto) 1.96, Nucleated RBC % 0, Sodium 139, Potassium 4.0, Chloride 105, Carbon Dioxide 21.6, Anion Gap 12, BUN 11, Creatinine 0.84, Estim Creat Clear Calc 61.16, Est GFR (MDRD) Non-Af 77, BUN/Creatinine Ratio 12.5, Glucose 143 H, Calcium 8.9, Triglycerides 166, Cholesterol 134, LDL Cholesterol, Calc 46, VLDL Cholesterol 33, HDL Cholesterol 55, Cholesterol/HDL Ratio 2.44 02/21/25 05:54: POC Glucose 142 H 02/21/25 11:34: POC Glucose 184 H D/C Instructions Discharge Activity: Return to Normal Activity Weight Bearing Status: Weight bearing as tolerated Call your doctor if you observe: Fever of 101 or Higher, Shortness of breath, Dizziness, Swelling in the ankles and Chest pain DC O2, CPAP, BIPAP Needs Home O2 Discharge instructions: No DC home with Oxygen: No Meaningful Use Info Meaningful Use Meaningful Use Diagnoses (Choose all that apply): None applicable Discharge Plan Admission Admit Date/Time: 02/20/25 16:39 Primary Reason for Your Visit: chest pain Attending Provider: Natalie Steve Primary Care Provider: Gaurav Deshpande Consulting Providers: Fred Saldana; Cherelle Kaplan Instructions Patient Instructions: ED Chest Pain, Noncardiac Discharge Orders/Prescriptions Prescriptions: Continued calcium carbonate-vitamin D3 200 mg (500 mg) -400 unit tablet 1 tab PO BID (DME) insulin syringe-needle U-100 [BD Insulin Syringe Ultra-Fine] 0.3 mL 31 gauge x 5/16 syringe See Rx Instructions .ROUTE .MEDSUPPLY Qty: 120 8RF Rx Instructions: 4 times daily bupropion HCl [Wellbutrin SR] 150 mg tablet sustained-release 12 hr 150 mg PO DAILY (DME) insulin syringe-needle U-100 [BD Insulin Syringe Ultra-Fine] 0.3 mL 31 gauge x 5/16 syringe See Rx Instructions .Route Qty: 200 6RF Rx Instructions: 4 times per day prednisone 20 mg tablet 40 mg PO DAILY PRN isosorbide mononitrate 60 mg tablet extended release 24 hr 60 mg PO DAILY Qty: 90 3RF aspirin 81 MG tablet 81 mg PO DAILY@0800 0RF meclizine 25 MG tablet 25 mg PO TID PRN PRN (Reason: Dizziness) ondansetron 4 mg tablet,disintegrating 4 mg PO Q6H PRN (Reason: nausea and vomiting) Qty: 12 0RF trazodone 100 mg tablet 200 mg PO QHS dicyclomine 10 mg Capsule 10 mg PO TIDAC PRN (Reason: abdominal pain/Cramping) Qty: 90 0RF insulin glargine [Lantus U-100 Insulin] 100 unit/mL solution 20 unit subcut BID insulin aspart U-100 [Novolog U-100 Insulin aspart] 100 unit/mL solution 10 unit subcut TID omeprazole 40 mg capsule,delayed release(DR/EC) 40 mg PO DAILY Qty: 90 1RF duloxetine 30 mg capsule,delayed release(DR/EC) 30 mg PO BID Qty: 180 1RF (DME) lancets [Comfort EZ Lancets] 28 gauge misc See Rx Instructions .Route Qty: 100 5RF Rx Instructions: 4x/day lubiprostone [Amitiza] 8 mcg capsule 8 mcg PO BID Qty: 60 2RF (DME) blood-glucose meter [Accu-Chek Guide Glucose Meter] Misc See Rx Instructions .Route Qty: 1 0RF Rx Instructions: As directed (DME) Accu-Chek Guide test strips Strip See Rx Instructions .Route Qty: 100 12RF Rx Instructions: test tid (DME) FreeStyle To 2 Sensor Kit See Rx Instructions .Route Qty: 2 6RF Rx Instructions: As directed rosuvastatin 40 mg tablet 40 mg PO DAILY Qty: 90 3RF metoclopramide HCl 5 mg tablet 5 mg PO QAC Qty: 90 3RF Rx Instructions: administer 30 minutes before meals carvedilol 6.25 mg tablet 6.25 mg PO BID Qty: 180 3RF nitroglycerin 0.4 mg tablet, sublingual 0.4 mg SUBLINGUAL Q5-15M PRN (Reason: chest pain) Qty: 25 5RF Rx Instructions: until response; do not exceed 3 doses per episode Referrals / Follow Up: Gaurav Deshpande MD [Primary Care Provider] - Within 1 Week Fred Saldana MD [Med Staff - Active Staff] - Within 1 Month Disposition Disposition (needs filled in before D/C Order can be placed): Home, Self Care Charges/Coding Visit Charges Inpatient E&M: 31620 Disch Hosp >30min
--- NOTE | 2025-02-21 15:27 | CASEMGMT ---
Patient has order for discharge. RN CM in to discuss needs at discharge. Patient denies needs or help at discharge. Patient had no further questions or concerns.
--- NOTE | 2025-02-21 15:51 | PHA.DC_ITS ---
Pharmacy [facility] has performed discharge medication reconciliation for this patient. The patient's discharge medication list was reviewed for discrepancies and discrepancies were resolved. Medications at Discharge Home Medications aspirin 81 mg tablet,delayed release 81 mg PO DAILY@0800 heart health 10/12/18 meclizine 25 mg tablet 25 mg PO TID PRN PRN Dizziness 07/14/20 calcium carbonate 200 mg calcium (500 mg)-vitamin D3 400 unit tablet 1 tab PO BID vitamin 08/26/20 insulin syringe-needle U-100 0.3 mL 31 gauge x 5/16 (BD Insulin Syringe Ultra- Fine) #120 ea 11/24/21 omeprazole 40 mg capsule,delayed release 40 mg PO DAILY reflux #90 caps 08/05/22 duloxetine 30 mg capsule,delayed release 30 mg PO BID mental health #180 caps 08/07/22 lancets 28 gauge (Comfort EZ Lancets) #100 ea 09/03/22 bupropion HCl 150 mg tablet,12 hr sustained-release (Wellbutrin SR) 150 mg PO DAILY mental health 02/04/23 ondansetron 4 mg disintegrating tablet 4 mg PO Q6H PRN nausea and vomiting #12 tabs 02/15/23 trazodone 100 mg tablet 200 mg PO QHS sleep 02/19/23 insulin syringe-needle U-100 0.3 mL 31 gauge x 5/16 (BD Insulin Syringe Ultra- Fine) #200 ea 05/07/23 dicyclomine 10 mg capsule 10 mg PO TIDAC PRN abdominal pain/Cramping #90 caps 05/12/23 lubiprostone 8 mcg capsule (Amitiza) 8 mcg PO BID #60 caps 06/23/23 blood-glucose meter (Accu-Chek Guide Glucose Meter) #1 ea 07/01/23 blood sugar diagnostic (Accu-Chek Guide test strips) #100 ea 08/30/23 flash glucose sensor (FreeStyle To 2 Sensor kit) #2 ea 09/08/23 rosuvastatin 40 mg tablet 40 mg PO DAILY cholesterol #90 tabs 09/09/23 metoclopramide HCl 5 mg tablet 5 mg PO QAC #90 tabs 04/20/24 insulin glargine 100 unit/mL subcutaneous solution (Lantus U-100 Insulin) 20 unit subcut BID diabetes 05/25/24 isosorbide mononitrate 60 mg tablet,extended release 24 hr 60 mg PO DAILY heart #90 tabs 05/25/24 prednisone 20 mg tablet 40 mg PO DAILY PRN 05/25/24 carvedilol 6.25 mg tablet 6.25 mg PO BID blood pressure #180 tabs 11/13/24 nitroglycerin 0.4 mg sublingual tablet 0.4 mg sublingual Q5-15M PRN chest pain #25 tabs 01/05/25 insulin aspart U-100 100 unit/mL subcutaneous solution (Novolog U-100 Insulin aspart) 10 unit subcut TID diabetes 02/20/25
[2025-02-21 16:00] VITALS: BP 141/77; PULSE 60; RESP 14; TEMP 36.5; O2SAT 99
== END 2025-02-21 16:09 | disposition home or self-care (01) ==
LOC: ED 16:32 → PCU 17:26
PROVIDERS: Admitting Provider Internal Medicine; Emergency Provider Emergency Medicine; PCP Family Medicine; Visit Provider Student in an Organized Health Care Education/Training Program
DX: R07.89 Other chest pain (principal); M06.9 Rheumatoid arthritis, unspecified; J44.9 Chronic obstructive pulmonary disease, unspecified; E11.9 Type 2 diabetes mellitus without complications; Z79.4 Long term (current) use of insulin; I25.2 Old myocardial infarction; I25.5 Ischemic cardiomyopathy; M79.7 Fibromyalgia; E78.00 Pure hypercholesterolemia, unspecified; I10 Essential (primary) hypertension; K21.9 Gastro-esophageal reflux disease without esophagitis; I25.10 Atherosclerotic heart disease of native coronary artery without angina pectoris; Z79.82 Long term (current) use of aspirin; R06.02 Shortness of breath; Z82.49 Family history of ischemic heart disease and other diseases of the circulatory system; Z79.899 Other long term (current) drug therapy; F41.9 Anxiety disorder, unspecified; F32.A Depression, unspecified
CPT/HCPCS: 36415; 71045; 78452; 80048; 80061; 82962; 84484; 85025; 85610; 85730; 93005; 93017; 96374; 99221; 99285; A9500; A4216; G0378; J2405; J2785

== ENCOUNTER 2025-04-23 11:52 | Outpatient (CLI) | payer MEDICARE, SELFPAY ==
[2023-01-05 11:47] VITALS: BMI 35.9
[2025-04-23 16:29] LABS: Creatinine, Urine (random) 214.00 mg/dL (28.00-217.00); Microalbumin,Random Urine < 12.0 mg/L (<20 mg/L)
== END 2025-04-23 23:59 | disposition home or self-care (01) ==
LOC: MFPLAB 11:53 → LABSPEC 11:54
PROVIDERS: PCP Family Medicine; Visit Provider Family Medicine
DX: E11.65 Type 2 diabetes mellitus with hyperglycemia (principal)
CPT/HCPCS: 82043; 82570